=== PATIENT | female | born 1970 | race Caucasian/White ===

== ENCOUNTER → 2017-01-03 | Outpatient (REF) | payer OTHER, MEDICARE ==
[2017-01-03 18:55] LABS: MEAN CORPUSCULAR HEMOGLOBIN 29.6 pg (27.0-33.0); MEAN CORPUSCULAR HGB CONC 33.6 g/dl (32.0-36.5); MEAN CORPUSCULAR VOLUME 88.3 fl (80.0-96.0); RED CELL DISTRIBUTION WIDTH 12.1 % (11.5-14.5); WHITE BLOOD COUNT 8.6 K/mm3 (4.0-10.0)
[2017-01-03 18:56] LABS: ALBUMIN 3.8 GM/DL (3.2-5.2); ALBUMIN/GLOBULIN RATIO 1.23 (1.00-1.93); ALKALINE PHOSPHATASE 206 U/L (45-117); ALT/SGPT 27 U/L (12-78); ANION GAP 8 MEQ/L (8-16); AST/SGOT 13 U/L (15-37); BILIRUBIN,TOTAL 0.5 MG/DL (0.2-1.0); BLOOD UREA NITROGEN 7 MG/DL (7-18); CARBON DIOXIDE LEVEL 25 MEQ/L (21-32); CHLORIDE LEVEL 104 MEQ/L (98-107); CHOLESTEROL LEVEL 211 MG/DL (<200); CREATININE FOR GFR 0.69 MG/DL (0.55-1.02); FREE T4 0.99 NG/DL (0.76-1.46); GLOMERULAR FILTRATION RATE > 60.0 (>58); GLUCOSE, FASTING 300 MG/DL (70-105); POTASSIUM SERUM 4.3 MEQ/L (3.5-5.1); SODIUM LEVEL 137 MEQ/L (136-145); TOTAL PROTEIN 6.9 GM/DL (6.4-8.2); TRIGLYCERIDES LEVEL 229 MG/DL (<150)
== END ==
LOC: M SFHCLERA 10:39
PROVIDERS: ATTEND Family Medicine
DX: E11.42 Type 2 diabetes mellitus with diabetic polyneuropathy (principal); Z79.4 Long term (current) use of insulin; Z98.84 Bariatric surgery status; Z87.891 Personal history of nicotine dependence; Z79.899 Other long term (current) drug therapy

== ENCOUNTER → 2017-04-17 | Outpatient (REF) | payer OTHER, MEDICARE | LOC: M SFHCLERA 14:01 | PROVIDERS: ATTEND Family Medicine | DX: E66.9 Obesity, unspecified (principal); E08.65 Diabetes mellitus due to underlying condition with hyperglycemia ==

== ENCOUNTER → 2017-07-26 | Outpatient (REF) | payer OTHER, MEDICARE ==
[2017-07-26 12:08] LABS: MEAN CORPUSCULAR HEMOGLOBIN 28.3 pg (27.0-33.0); MEAN CORPUSCULAR HGB CONC 33.4 g/dl (32.0-36.5); MEAN CORPUSCULAR VOLUME 84.7 fl (80.0-96.0); RED CELL DISTRIBUTION WIDTH 12.5 % (11.5-14.5); WHITE BLOOD COUNT 10.3 10^3/uL (4.0-10.0)
[2017-07-26 12:16] LABS: INR 0.97
[2017-07-26 12:53] LABS: ALBUMIN 3.9 GM/DL (3.2-5.2); ALBUMIN/GLOBULIN RATIO 1.26 (1.00-1.93); ALKALINE PHOSPHATASE 190 U/L (45-117); ALT/SGPT 26 U/L (12-78); ANION GAP 13 MEQ/L (8-16); AST/SGOT 17 U/L (15-37); BILIRUBIN,TOTAL 0.5 MG/DL (0.2-1.0); BLOOD UREA NITROGEN 7 MG/DL (7-18); CARBON DIOXIDE LEVEL 21 MEQ/L (21-32); CHLORIDE LEVEL 106 MEQ/L (98-107); CREATININE FOR GFR 0.74 MG/DL (0.55-1.02); GLOMERULAR FILTRATION RATE > 60.0 (>58); GLUCOSE, FASTING 259 MG/DL (70-105); POTASSIUM SERUM 4.3 MEQ/L (3.5-5.1); SODIUM LEVEL 140 MEQ/L (136-145)
== END ==
LOC: M SFHCLERA 09:13
PROVIDERS: ATTEND Family Medicine
DX: Z01.818 Encounter for other preprocedural examination (principal)

== ENCOUNTER → 2017-07-26 | Outpatient (CLI) | payer OTHER, MEDICARE ==
--- NOTE | 2017-07-27 01:20 | REP ---
Clinical: Preoperative clearance . Comparison: 10/03/2015 . Technique: PA and lateral. Findings: The mediastinum and cardiac silhouette are normal. Airway is patent and midline. Evidence for anterior cervical fusion. The lung mills are clear and without acute consolidation, effusion, or pneumothorax. The skeletal structures are intact and normal. Impression: 1. No acute cardiopulmonary process. Signed by Braydon Ritchie MD 07/27/2017 01:11 A
== END ==
LOC: M LRY 09:17
PROVIDERS: ATTEND Family Medicine
DX: Z01.818 Encounter for other preprocedural examination (principal)

== ENCOUNTER → 2017-08-25 | Outpatient (REF) | payer OTHER, MEDICARE | LOC: M LAB REF 13:44 | PROVIDERS: ATTEND Advanced Practice Midwife | DX: Z12.4 Encounter for screening for malignant neoplasm of cervix (principal) ==

== ENCOUNTER → 2017-11-07 | Outpatient (CLI) | payer OTHER, MEDICARE | LOC: M RAD 15:06 | DX: M54.5 Low back pain (principal); M51.37 Other intervertebral disc degeneration, lumbosacral region | CPT/HCPCS: 72100 ==

== ENCOUNTER → 2017-12-15 | Outpatient (REF) | payer OTHER, MEDICARE ==
[2017-12-15 20:44] LABS: HEMATOCRIT 45.6 % (36.0-47.0); HEMOGLOBIN 15.1 g/dl (12.0-16.0); MEAN CORPUSCULAR HEMOGLOBIN 27.6 pg (27.0-33.0); MEAN CORPUSCULAR HGB CONC 33.1 g/dl (32.0-36.5); MEAN CORPUSCULAR VOLUME 83.2 fl (80.0-96.0); PLATELET COUNT, AUTOMATED 405 10^3/uL (150-450); RED BLOOD COUNT 5.48 10^6/uL (4.00-5.40); RED CELL DISTRIBUTION WIDTH 12.9 % (11.5-14.5); WHITE BLOOD COUNT 12.4 10^3/uL (4.0-10.0)
[2017-12-15 21:00] LABS: ALBUMIN 4.3 GM/DL (3.2-5.2); ALBUMIN/GLOBULIN RATIO 1.34 (1.00-1.93); ALKALINE PHOSPHATASE 206 U/L (45-117); ALT/SGPT 24 U/L (12-78); ANION GAP 9 MEQ/L (8-16); AST/SGOT 10 U/L (7-37); BILIRUBIN,TOTAL 0.3 MG/DL (0.2-1.0); BLOOD UREA NITROGEN 8 MG/DL (7-18); CALCIUM LEVEL 9.2 MG/DL (8.5-10.1); CARBON DIOXIDE LEVEL 25 MEQ/L (21-32); CHLORIDE LEVEL 105 MEQ/L (98-107); GLOMERULAR FILTRATION RATE > 60.0 (>58); GLUCOSE, FASTING 180 MG/DL (70-100); POTASSIUM SERUM 4.1 MEQ/L (3.5-5.1); SODIUM LEVEL 139 MEQ/L (136-145); TOTAL PROTEIN 7.5 GM/DL (6.4-8.2)
[2017-12-15 21:04] LABS: ESTIMATED AVERAGE GLUCOSE 212 MG/DL (60-110)
== END ==
LOC: M SFHCLERA 16:48
DX: R03.0 Elevated blood-pressure reading, without diagnosis of hypertension (principal)

== ENCOUNTER → 2018-04-17 | Outpatient (REF) | payer OTHER, MEDICARE ==
[2018-04-17 11:42] LABS: BASO # 0.1 10^3/uL (0.0-0.2); BASO % 0.6 % (0.0-1.0); EOS # 0.2 10^3/uL (0.0-0.50); EOS % 1.7 % (0.0-3.0); HEMATOCRIT 41.5 % (36.0-47.0); IMMATURE GRANULOCYTE % 0.4 % (0-3.0); LYMPH # 2.2 10^3/uL (1.5-4.5); LYMPH % 22.2 % (24.0-44.0); MEAN CORPUSCULAR HEMOGLOBIN 28.5 pg (27.0-33.0); MEAN CORPUSCULAR HGB CONC 33.7 g/dl (32.0-36.5); MEAN CORPUSCULAR VOLUME 84.3 fl (80.0-96.0); MONO # 0.4 10^3/uL (0.0-0.8); MONO % 4.1 % (0.0-5.0); NEUTROPHILS # 7.2 10^3/uL (1.8-7.7); PLATELET COUNT, AUTOMATED 323 10^3/uL (150-450); RED BLOOD COUNT 4.92 10^6/uL (4.00-5.40); RED CELL DISTRIBUTION WIDTH 12.7 % (11.5-14.5); WHITE BLOOD COUNT 10.1 10^3/uL (4.0-10.0)
[2018-04-17 12:18] LABS: ALBUMIN/GLOBULIN RATIO 1.38 (1.00-1.93); ALKALINE PHOSPHATASE 151 U/L (45-117); ALT/SGPT 24 U/L (12-78); ANION GAP 12 MEQ/L (8-16); AST/SGOT 12 U/L (7-37); BILIRUBIN,TOTAL 0.5 MG/DL (0.2-1.0); BLOOD UREA NITROGEN 7 MG/DL (7-18); CALCIUM LEVEL 8.6 MG/DL (8.5-10.1); CARBON DIOXIDE LEVEL 19 MEQ/L (21-32); CHLORIDE LEVEL 110 MEQ/L (98-107); CHOLESTEROL LEVEL 135 MG/DL (<200); CREATININE FOR GFR 0.68 MG/DL (0.55-1.30); GLOMERULAR FILTRATION RATE > 60.0 (>58); GLUCOSE, FASTING 156 MG/DL (70-100); HDL CHOLESTEROL 34 MG/DL (>40); LDL CHOLESTEROL 73.4 MG/DL (<100); NON-HDL-C 101 MG/DL; POTASSIUM SERUM 4.2 MEQ/L (3.5-5.1); SODIUM LEVEL 141 MEQ/L (136-145); TOTAL PROTEIN 6.9 GM/DL (6.4-8.2); TRIGLYCERIDES LEVEL 138 MG/DL (<150)
[2018-04-17 12:21] LABS: CREATININE, URINE 50.9 MG/DL; MALB URINE SIEMENS 8.7 MG/L
[2018-04-17 12:46] LABS: ESTIMATED AVERAGE GLUCOSE 192 MG/DL (60-110); HEMOGLOBIN A1c 8.3 %
== END ==
LOC: M SFHCLERA 10:11
DX: B35.1 Tinea unguium (principal); E11.9 Type 2 diabetes mellitus without complications; E78.5 Hyperlipidemia, unspecified

== ENCOUNTER → 2018-05-14 | Outpatient (CLI) | payer OTHER, MEDICARE | LOC: M LRY 13:24 | DX: M79.672 Pain in left foot (principal); M77.32 Calcaneal spur, left foot; M76.62 Achilles tendinitis, left leg | CPT/HCPCS: 73630 ==

== ENCOUNTER → 2018-07-24 | Outpatient (REF) | payer OTHER, MEDICARE | LOC: M SFHCLERA 20:43 | DX: M54.2 Cervicalgia (principal) ==

== ENCOUNTER → 2018-07-24 | Outpatient (REF) | payer OTHER, MEDICARE | LOC: M SFHCLUC 07-25 11:45 | DX: M54.2 Cervicalgia (principal) ==

== ENCOUNTER → 2018-08-12 | Outpatient (CLI) | payer OTHER, MEDICARE ==
[2018-08-12 13:32] LABS: ESTIMATED AVERAGE GLUCOSE 174 MG/DL (60-110); HEMOGLOBIN A1c 7.7 %
== END ==
LOC: M LAB 12:22
DX: E11.65 Type 2 diabetes mellitus with hyperglycemia (principal)

== ENCOUNTER → 2018-08-12 | Outpatient (CLI) | payer OTHER, MEDICARE ==
[2018-08-12 12:49] LABS: BASO # 0.1 10^3/uL (0.0-0.2); BASO % 0.6 % (0.0-1.0); EOS # 0.2 10^3/uL (0.0-0.50); EOS % 1.7 % (0.0-3.0); HEMATOCRIT 41.6 % (36.0-47.0); HEMOGLOBIN 14.1 g/dl (12.0-15.5); IMMATURE GRANULOCYTE % 0.5 % (0-3.0); LYMPH # 3.1 10^3/uL (1.5-4.5); LYMPH % 27.1 % (24.0-44.0); MEAN CORPUSCULAR HEMOGLOBIN 28.4 pg (27.0-33.0); MEAN CORPUSCULAR HGB CONC 33.9 g/dl (32.0-36.5); MEAN CORPUSCULAR VOLUME 83.9 fl (80.0-96.0); MONO # 0.6 10^3/uL (0.0-0.8); MONO % 4.9 % (0.0-5.0); NEUTROPHILS # 7.4 10^3/uL (1.8-7.7); NEUTROPHILS % 65.2 % (36.0-66.0); PLATELET COUNT, AUTOMATED 329 10^3/uL (150-450); RED BLOOD COUNT 4.96 10^6/uL (4.00-5.40); RED CELL DISTRIBUTION WIDTH 12.4 % (11.5-14.5); WHITE BLOOD COUNT 11.3 10^3/uL (4.0-10.0)
[2018-08-12 13:30] LABS: ALBUMIN 3.6 GM/DL (3.2-5.2); ALKALINE PHOSPHATASE 150 U/L (45-117); ALT/SGPT 23 U/L (12-78); ANION GAP 7 MEQ/L (8-16); AST/SGOT 9 U/L (7-37); BILIRUBIN,TOTAL 0.3 MG/DL (0.2-1.0); BLOOD UREA NITROGEN 5 MG/DL (7-18); CALCIUM LEVEL 8.9 MG/DL (8.5-10.1); CARBON DIOXIDE LEVEL 25 MEQ/L (21-32); CHLORIDE LEVEL 106 MEQ/L (98-107); CREATININE FOR GFR 0.64 MG/DL (0.55-1.30); FREE T4 0.96 NG/DL (0.76-1.46); GLOMERULAR FILTRATION RATE > 60.0 (>58); GLUCOSE, FASTING 200 MG/DL (70-100); POTASSIUM SERUM 3.9 MEQ/L (3.5-5.1); SODIUM LEVEL 138 MEQ/L (136-145); THYROID STIMULATING HORMONE 0.912 uIU/ML (0.358-3.740); TOTAL PROTEIN 6.6 GM/DL (6.4-8.2)
[2018-08-14 10:57] LABS: TISSUE TRANSGLUTAMINASE IgA <2 U/mL (0-3)
== END ==
LOC: M LAB 12:19
DX: R19.7 Diarrhea, unspecified (principal)

== ENCOUNTER 2018-08-14 10:23 | Day surgery (SDC) | payer OTHER, MEDICARE ==
[2018-08-14] MEDS: NS 1,000 ML IV (11:15)
[2018-08-14] MEDS ORDERED: PROPOFOL 200 MG/20 ML VIAL As Ordered (11:58)
[2018-08-14] MEDS ORDERED: PROPOFOL 500 MG/50 ML VIAL As Ordered (11:58)
[2018-08-14] MEDS ORDERED: LIDOCAINE 2% INJ 100 MG/5 ML SDV (FOR ANES.) As Ordered (11:58)
== END 2018-08-14 12:30 | disposition home or self-care (01) ==
LOC: M OPP 10:23
DX: K63.5 Polyp of colon (principal); K58.0 Irritable bowel syndrome with diarrhea; I10 Essential (primary) hypertension; E78.70 Disorder of bile acid and cholesterol metabolism, unspecified; E11.9 Type 2 diabetes mellitus without complications; K21.9 Gastro-esophageal reflux disease without esophagitis; G43.909 Migraine, unspecified, not intractable, without status migrainosus; G90.59 Complex regional pain syndrome I of other specified site; Z79.899 Other long term (current) drug therapy; Z79.3 Long term (current) use of hormonal contraceptives; Z87.891 Personal history of nicotine dependence; Z98.0 Intestinal bypass and anastomosis status; Z98.890 Other specified postprocedural states; Z88.8 Allergy status to other drugs, medicaments and biological substances; Z88.0 Allergy status to penicillin; Z91.041 Radiographic dye allergy status; Z88.2 Allergy status to sulfonamides; Z80.0 Family history of malignant neoplasm of digestive organs
CPT/HCPCS: 45385

== ENCOUNTER → 2019-01-18 | Outpatient (REF) | payer OTHER, MEDICARE ==
[~2019-01-18] MED LIST: BIMA01SOL OP; BYDU1INJ SC; CALCTAB41 PO; CYMB60CA3 PO; DEPO150I IM; HYDR-3363 PO; METF10004 PO; MULTCAP PO; NORC1TAB7 PO; OMEP40CA2 PO; PEPT525S PO; SIMV10TA2 PO; SING10TA32 PO; TERB250T12 PO; TOPA50TA8 PO; TOUJ1.2I SC; TRAZ-163 PO; VITATAB22 PO; ZANA2CAP PO; ZYRT10CA PO; xyzal PO
[2019-01-18 12:29] LABS: ALBUMIN 3.8 GM/DL (3.2-5.2); ALT/SGPT 30 U/L (12-78); BILIRUBIN,TOTAL 0.6 MG/DL (0.2-1.0); BLOOD UREA NITROGEN 8 MG/DL (7-18); CALCIUM LEVEL 8.8 MG/DL (8.5-10.1); CARBON DIOXIDE LEVEL 24 MEQ/L (21-32); CHLORIDE LEVEL 106 MEQ/L (98-107); CHOLESTEROL LEVEL 206 MG/DL (<200); CREATININE FOR GFR 0.63 MG/DL (0.55-1.30); GLOMERULAR FILTRATION RATE > 60.0 (>51); GLUCOSE, FASTING 148 MG/DL (70-100); HDL CHOLESTEROL 40 MG/DL (>40); LDL CHOLESTEROL 129 MG/DL (<100); NON-HDL-C 166 MG/DL; POTASSIUM SERUM 3.9 MEQ/L (3.5-5.1); SODIUM LEVEL 138 MEQ/L (136-145); TOTAL PROTEIN 6.5 GM/DL (6.4-8.2); TRIGLYCERIDES LEVEL 187 MG/DL (<150)
[2019-01-18 12:54] LABS: HEMOGLOBIN A1c 8.3 %
[2019-01-18 12:57] LABS: CREATININE, URINE 34.3 MG/DL; MALB URINE SIEMENS 8.2 MG/L; MAU/CREAT RATIO 23.9 MCG/MG (0.0-30.0)
== END ==
LOC: M SFHCLERA 07:32
PROVIDERS: ATTEND Family Medicine
DX: E11.9 Type 2 diabetes mellitus without complications (principal)

== ENCOUNTER → 2019-04-25 | Outpatient (REF) | payer OTHER, MEDICARE ==
[2019-04-25 17:41] LABS: ALBUMIN 3.9 GM/DL (3.2-5.2); ALT/SGPT 24 U/L (12-78); BASO # 0.1 10^3/uL (0.0-0.2); BILIRUBIN,TOTAL 0.4 MG/DL (0.2-1.0); BLOOD UREA NITROGEN 12 MG/DL (7-18); CALCIUM LEVEL 9.3 MG/DL (8.5-10.1); CARBON DIOXIDE LEVEL 29 MEQ/L (21-32); CHLORIDE LEVEL 105 MEQ/L (98-107); CREATININE FOR GFR 0.78 MG/DL (0.55-1.30); EOS # 0.3 10^3/uL (0.0-0.50); EOS % 2.8 % (0.0-3.0); FREE T4 0.88 NG/DL (0.76-1.46); GLOMERULAR FILTRATION RATE > 60.0 (>51); GLUCOSE, FASTING 161 MG/DL (70-100); HEMOGLOBIN 14.3 g/dl (12.0-15.5); LYMPH # 2.6 10^3/uL (1.5-4.5); LYMPH % 27.1 % (24.0-44.0); MEAN CORPUSCULAR HEMOGLOBIN 28.1 pg (27.0-33.0); MEAN CORPUSCULAR HGB CONC 32.5 g/dl (32.0-36.5); MEAN CORPUSCULAR VOLUME 86.4 fl (80.0-96.0); MONO # 0.5 10^3/uL (0.0-0.8); MONO % 5.1 % (0.0-5.0); NEUTROPHILS % 63.7 % (36.0-66.0); PLATELET COUNT, AUTOMATED 355 10^3/uL (150-450); POTASSIUM SERUM 4.9 MEQ/L (3.5-5.1); RED BLOOD COUNT 5.09 10^6/uL (4.00-5.40); SODIUM LEVEL 140 MEQ/L (136-145); THYROID STIMULATING HORMONE 0.972 uIU/ML (0.358-3.740); TOTAL PROTEIN 7.2 GM/DL (6.4-8.2); WHITE BLOOD COUNT 9.4 10^3/uL (4.0-10.0)
[2019-04-25 17:44] LABS: FOLATE 13.9 NG/ML; VITAMIN B12 LEVEL 702 PG/ML
[2019-04-25 18:21] LABS: HEMOGLOBIN A1c 8.1 %
== END ==
LOC: M SFHCLERA 10:10
PROVIDERS: ATTEND Family Medicine
DX: E11.9 Type 2 diabetes mellitus without complications (principal); R53.83 Other fatigue

== ENCOUNTER → 2019-06-14 | Outpatient (CLI) | payer OTHER, MEDICARE ==
--- NOTE | 2019-06-14 12:05 | REP ---
MRI RIGHT FOOT: TECHNIQUE: Multiple sequences are obtained in the axial, coronal, and sagittal planes. There is mild ill-defined bone marrow edema in the anterolateral talus. No other bone marrow edema is seen elsewhere in the osseous structures of the right foot. No ganglion cyst is seen. No abnormal soft tissue signal is seen. Visualized tendons and ligaments are intact. There is no significant tenosynovitis. There is a normal amount of scattered joint fluid. Plantar tendon is intact and there is no evidence of plantar fasciitis. No osteochondral defects are seen, particularly at the talar dome. Ligaments of the ankle appear intact. IMPRESSION: Mild marrow edema in the anterolateral talus could represent a mild bone bruise Alternatively, it could be secondary to some degree of arthritic change at the adjacent talocalcaneal joint. No other significant findings are seen. Electronically Signed by Chaz Glass MD 06/14/2019 01:18 P
== END ==
LOC: M PLARAD 10:02
PROVIDERS: ATTEND Physician Assistant
DX: S90.31XD Contusion of right foot, subsequent encounter (principal)

== ENCOUNTER → 2019-07-30 | Outpatient (REF) | payer OTHER, MEDICARE ==
[~2019-07-30] MED LIST changes: -OMEP40CA2 PO; +OMEP40CA97 PO
[2019-07-30 11:49] LABS: CHOLESTEROL RISK RATIO 3.6 (<5)
[2019-07-30 14:10] LABS: HEMOGLOBIN A1c 7.9 %
[2019-07-30 17:48] LABS: CREATININE, URINE 62.4 MG/DL; MALB URINE SIEMENS 18.3 MG/L; MAU/CREAT RATIO 29.3 MCG/MG (0.0-30.0)
== END ==
LOC: M SFHCLERA 08:56
PROVIDERS: ATTEND Family Medicine
DX: E11.9 Type 2 diabetes mellitus without complications (principal); E78.2 Mixed hyperlipidemia

== ENCOUNTER → 2019-09-08 | Outpatient (REF) | payer OTHER, MEDICARE ==
[~2019-09-08] MED LIST changes: -SIMV10TA2 PO; +SIMV10TA21 PO
== END ==
LOC: M SFHCLERA 12:40
PROVIDERS: ATTEND Physician Assistant
DX: J02.9 Acute pharyngitis, unspecified (principal)

== ENCOUNTER → 2019-10-23 | Outpatient (REF) | payer OTHER, MEDICARE ==
[~2019-10-23] MED LIST changes: -TRAZ-163 PO; +TRAZ-257 PO
[2019-10-23 17:45] LABS: HEMOGLOBIN A1c 7.5 %
== END ==
LOC: M SFHCLERA 13:14
PROVIDERS: ATTEND Family Medicine
DX: E11.9 Type 2 diabetes mellitus without complications (principal)

== ENCOUNTER → 2020-02-07 | Outpatient (REF) | payer OTHER, MEDICARE ==
[2020-02-07 19:30] LABS: HEMOGLOBIN A1c 8.4 %
== END ==
LOC: M SFHCLERA 14:01
PROVIDERS: ATTEND Family Medicine
DX: E11.9 Type 2 diabetes mellitus without complications (principal)

== ENCOUNTER → 2020-03-24 | Outpatient (REF) | payer OTHER, MEDICARE ==
[~2020-03-24] MED LIST changes: +CEFD300CAP PO; +CETI-24 PO; +DOXY-350 PO; +DULO1CAP5 PO; +HYDR-3713 PO; +LEVOTAB10 PO; +LOSA25TA14 PO; +PRIL20TA2 PO; +SIMV20TA22 PO; +VALT1TAB PO; +VENTAER INH
[2020-03-24 13:49] LABS: BLOOD UREA NITROGEN 9 MG/DL (7-18); CALCIUM LEVEL 8.9 MG/DL (8.5-10.1); CARBON DIOXIDE LEVEL 25 MEQ/L (21-32); CHLORIDE LEVEL 106 MEQ/L (98-107); CREATININE FOR GFR 0.82 MG/DL (0.55-1.30); GLOMERULAR FILTRATION RATE > 60.0 (>51); GLUCOSE, FASTING 183 MG/DL (70-100); POTASSIUM SERUM 4.2 MEQ/L (3.5-5.1); SODIUM LEVEL 140 MEQ/L (136-145)
== END ==
LOC: M SFHCLERA 10:47
PROVIDERS: ATTEND Family Medicine
DX: I10 Essential (primary) hypertension (principal)

== ENCOUNTER → 2020-10-16 | Outpatient (CLI) | payer OTHER, MEDICARE ==
[~2020-10-16] MED LIST changes: -CEFD300CAP PO; -CETI-24 PO; -DOXY-350 PO; -DULO1CAP5 PO; -HYDR-3713 PO; -LEVOTAB10 PO; -LOSA25TA14 PO; -PRIL20TA2 PO; -SIMV20TA22 PO; -VALT1TAB PO; -VENTAER INH
--- NOTE | 2020-10-16 14:54 | REP ---
INDICATION: CHEST CONGESTION. COMPARISON: Comparison chest x-ray July 26, 2017. TECHNIQUE: Two views.. FINDINGS: The lungs are well inflated and free of infiltrate. The pleural angles are sharp. The heart size is normal. Pulmonary vasculature is not increased. No significant bony abnormality is seen. A dorsal column stimulator lead is noted in the lower thoracic spine. The patient is status post lower cervical spine fusion plating. IMPRESSION: No active disease. Dorsal column stimulator in the lower thoracic spine and ventral discectomy and fusion plating in the lower cervical spine. Otherwise negative.. <Electronically signed by Sky Moe > 10/16/20 [id number]
== END ==
LOC: M WUC 13:56
PROVIDERS: ATTEND Nurse Practitioner Family
DX: R09.89 Other specified symptoms and signs involving the circulatory and respiratory systems (principal); Z96.89 Presence of other specified functional implants

== ENCOUNTER 2020-10-29 14:29 | Emergency (ER) | payer OTHER, MEDICARE ==
[~2020-10-29] VITALS: Ht 162.6 cm; Wt 105.0 kg
--- OUTSIDE RECORDS SUMMARY | 2020-10-29 14:36 | CCD ---
Author Author [facility] Organization [facility] ems Address Unknown Phone Unavailable Care Team Providers Care Animal Care Provider Name Role Phone Katherine Yost Unavailable PROBLEMS Type Condition ICD9-CM Code [id number] Code Onset Dates Condition S tatus SNOMED Code Notes Problem Insomnia, unspecified type G47.00 Active 16489 2000 Problem Allergic rhinitis, unspecified seasonality, unspecifie d trigger J30.9 Active 16173797 Problem Type 2 diabetes mellitus without complications E11 .9 Active 137011984 Problem Morbid obesity E66.01 Active 265842997 Problem [facility] current use of insulin Z79.4 Active 642327511 Problem Post-traumatic stress disorder, unspecified F43.10 Active 89832482 Problem Mixed hyperlipidemia E78.2 Active 759898120 Problem Gastroesophageal reflux disease, esophagitis pre sence not specified K21.9 Active 921932547 Problem Reflex sympathetic dystrophy G90.50 Active 128 142535 Problem Hypertension, unspecified type I10 Active 3 8922709 Problem Perimenopause N95.1 Active 947482347625699 ALLERGIES Allergen (clinical drug ingredient) Drug/Non Drug Allergy do cumented on EMR Reaction Allergy Type Onset Date Status Lidocaine & Adhesive Sheet rapid heart rate, ringing in ea r Drug Allergy Active Inderal Hives Drug Allergy Active Sulfa (for allergy use only) Hives Drug Allergy Active Amoxicillin Rash Drug Allergy Active Riboflavin Mouth sores Drug Allergy Active MRI Dye Anaphylaxis Non Drug Allergy Active gabapentin Neurontin(ND Code:[address]-45) Orbital pain, black dots Drug Allergy Active Magnesium(ND Code:[address]-82) mouth sores Drug Allergy Active amitriptyline Amitriptyline HCl(NDC Code:[address]-14) Mouth sores Drug Allergy Active pregabalin Lyrica([facility] Code:[address]-79) Orbital pain, black dot s Drug Allergy Active valproate Depakote([facility] Code:[address]-40) REYES Drug Allergy Active IV Dye Anaphylaxis Drug Allergy Active Zinc([facility] Code:05204-91909) Hives Drug Allergy Active ENCOUNTERS from 1970 to 2020-10-26 Encounter Location Date Provider Diagnosis [facility] [address] [place] [address] Oct, 2020 Katherine Yost Bronchitis J40 IMMUNIZATIONS Vaccine Route Administration Date Status Influenza (18 yrs & older) Flublok IM Intramuscular Aug 07, 2019 Administered Influenza (18 yrs & older) Flublok Unknown Jul 02, 2020 Administered Pneumococcal Adult 0.5mL (Pneumovax 23) Unknown Aug 14, 2017 Administered Influenza (6mo & up) Fluzone IM Intramuscular Aug 20, 2018 Ad ministered Influenza (6mo & up) Fluzone IM Intramuscular Aug 09, 2017 Ad ministered Influenza (6mo & up) Fluzone Unknown Jul 29, 2015 Adm inistered Influenza (6mo & up) Fluzone Unknown Oct 12, 2014 Ref used SOCIAL HISTORY Tobacco Use: Social History Observation Description Date Details (start date - stop date) Former Smoker Sex Assigned At : Social History Observation Description Sex Assigned At Unknown Language: Question Answer Notes Languages spoken: Algerian Confucianism: Question Answer Notes Confucianism 33 None Sexual Hx: Question Answer Notes Had sex in the last 12 months (vaginal, oral, or anal)? Yes Have you ever had an STD? No with Men only Use protection? No Alcohol Screening: Question Answer Notes Did you have a drink containing alcohol in the past year? Ye s Points 1 Interpretation Negative How often did you have six or more drinks on one occas ion in the past year? Never (0 points) How many drinks did you have on a typica l day when you were drinking in the past year? 1 or 2 (0 points) How often did you have a drink containing alcohol in t he past year? Monthly or less (1 point) Tobacco Use: Question Answer Notes Are you a: former smoker 1 PPD for 15 years How long has it been since you last smoked? > 10 years REASON FOR REFERRAL No Information VITAL SIGNS No information MEDICATIONS Medication SIG (Take, Route, Frequency, Duration) Notes Start Da te End Date Status Toujeo SoloStar 300 UNIT/ML 30 units Subcutaneous Daily for 30 days Active Omeprazole 40 MG TAKE 1 CAPSULE BY MOUTH ONCE DAILY for 30 Active Bydureon 2 MG 1 injection Subcutaneous once a week for 30 days Active Zyrtec Allergy 10 MG 1 tablet Orally Once a day Active Test Strips - as directed intravenously bid for 90 days Oct, Active Cymbalta 60 MG 1 capsule Orally Once a day Active Zanaflex 2 MG 1 tablet Orally Once a day Active HydrOXYzine Pamoate 25 mg 1 capsule Orally 1 capsule i n the am, 4 at night, 1 cap as needed for 30 days Active Lyndora 5-325 MG 1 tablet as needed Orally every 6 hrs Active ProAir HFA 108 (90 Base) MCG/ACT 1 puff as needed Inha lation every 4 hrs for 10 day(s) Oct, Active Xyzal 5 MG 1 tablet in the evening Orally Once a day Active Singulair 10 MG 1 tablet in the evening Orally Once a day for 30 days Active TraZODone HCl 100 MG 1-2 tablets at bedtime Orally QHS for 90 day(s) Active Flonase 50 MCG/ACT 1 spray in each nostril Nasally Once a day fo r 30 day(s) Aug, Active Losartan Potassium 25 MG 1 tablet Orally Once a day Active Topamax 50 MG 1 tablet Orally Once a day Active Zocor 20 MG 1 tab Orally Once a day Active Metformin HCl 1000 MG 1 tablet with meals Orally Twice a day Active PROCEDURES No Information RESULTS No Results REASON FOR VISIT f/u bronchitis MEDICAL (GENERAL) HISTORY Type Description Date Medical History RSD Medical History Type 2 DM Medical History glaucoma Medical History Abnormal mammogram Medical History obesity Medical History HLD Medical History HTN Surgical History Gastric Bypass May 2010 Surgical History c-spine fusion 2011 Surgical History CTS release and ulnar nerve transpositio n left 2012 Surgical History CTS release right 2014 Surgical History ulnar nerve transposition right 2017 Surgical History laposcopic 1990 Surgical History excision of kidney stone, tonsillectomy 1990 Surgical History club foot repair 1968+1970 Surgical History left dorsal compartment release 1994 Surgical History dorsal stimulator 08/28/2017 Hospitalization History [facility]co[facility]ondritis 2011 Hospitalization History [facility]ondritis 09/18/18 Goals Section No Information Health Concerns No Information MEDICAL EQUIPMENT No Information MENTAL STATUS No Information FUNCTIONAL STATUS No Information ASSESSMENTS Encounter Date Diagnosis Assessment Notes Treatment Notes Treatm ent Clinical Notes Oct, Bronchitis (ICD-10 - J40) Bronchitis with improvement on Proair. Continue proair as directed and prn. F/u prn. ER for new or worsening sxs. Patient educated on diagnosis, medications, treatments, and expected outcomes. Patient educated on risks, SE/AE, benefits, alternatives of regimen. Discussed emergent signs and symptoms and to seek emergency medical attention if they occur. Patient voiced understanding and had all questions answered. PLAN OF TREATMENT Treatment Notes Assessment Notes Clinical Notes Bronchitis Bronchitis with improvement on Proair. Continue proair as directed and prn. F/u prn. ER for new or worsening sxs. Patient educated on diagnosis, medications, treatments, and expected outcomes. Patient educated on risks, SE/AE, benefits, alternatives of regimen. Discussed emergent signs and symptoms and to seek emergency medical attention if they occur. Patient voiced understanding and had all questions answered. Next Appt Details prn Reason: Provider Name:Eliana Godfrey, 2020-10-29 0 1:15:00 PM, [address] [place], [address], Provider Name:Eunice Galeano 2020-11-12 01:00:00 PM, [address] [address], [place], [address] Provider Name:Eunice aGleano 2020-11-19 01:00:00 PM, [address] [address], [place], [address] Provider Name:Eunice Galeano 2020-12-03 01:00:00 PM, [address] [address], [place], [address] Insurance Providers Payer Name Payer Address Payer Phone Insured Name Patient Relati onship to Insured Coverage Start Date Coverage End Date [facility] [address] [address] [facility] [id number] JESSI CLOUD MEDICARE Part A and B [address] [facility] [phone] JESSI CLOUD self
--- OUTSIDE RECORDS SUMMARY | 2020-10-29 14:37 | CCD ---
Continuity of Care Document (CCD) Created on: 10/19/2020 Jena Cloud External Reference #: [id number] : [id number] Sex: Female Author Author Jena LORA Organization Unknown Address [address] [place] [address] [place] [address] Phone [phone] Care Team Providers Care Entry Level Manager Name Role Phone Clif Tapia DO AUTM [phone] Sundeep [employer] AUTM [phone] Problems Active Problems Provider Date Type 2 diabetes mellitus Hiren Dhillon PNghia Onset: 0 12/05/2009 Social History Type Date Description Comments Sex Unknown ETOH Use Occasionally consumes alcohol Tobacco Use Start: Unknown No Smoking Status Reviewed: 10/19/20 No Allergies, Adverse Reactions, Alerts Active Allergies Reaction Severity Comments Date Sulfa 12/05/2009 Lyrica 12/05/2009 Neurontin 12/05/2009 Amitriptyline 12/05/2009 IV Contrast 12/05/2009 Medications Active Medications SIG Qnty Indications Ordering Provide r Date Trujeo Christiano Gagnon JR. 10/19/2020 [place] 325 mg Christiano Gagnon JR. 10/19/2020 Prednisone 20mg Tablets take one tablet three times a day for three days, then take one tablet twice a day for three days, then take one tab daily for three days. 18tabs J04.10 Adam Lynch JR., M.D. 10/19/2020 Cefdinir 300mg Capsules 1 tab by mouth twice a day x10 days 20caps J04.10 Maxi Gagnon JR. 10/19/[address] Knight 1. 5 po od Adam Lynch JR., M.D. 12/05/2009 Bydureon Unknown Simvastatin Unknown Metformin HCL Unknown Topamax 50mg Tablets 1 po bid 60tabs Unknown Vitamin C 500mg Chewtabs bid Unknown Vitamin B 12 Lozenges qd Unknown Calcium 600 600mg Tablets bid Unknown Metoprolol Tartrate 50mg Tablets bid Unknown Mvi bid Unknown Vitamin D Unknown Narco prn Unknown Xyzal 5mg Tablets 1 po qd Unknown Zanaflex 4mg Capsules od Unknown Medications Administered in Office Medication SIG Qnty Indications Ordering Provider Date Phenergan/Promethazine Hci Injection To 50 MG Injection Cuba Magana 04/25/20 08 Immunizations Description No Information Available Vital Signs Date Vital Result Comment 10/19/2020 5:39pm BP Systolic 144 mmHg BP Diastolic 90 mmHg Heart Rate 83 /min Respiratory Rate 14 /min O2 % BldC Oximetry 98 % Body Temperature 98.8 F Weight 232.00 lb Height 64 inches 5'4" BMI (Body Mass Index) 39.8 kg/m2 Pain Level 6 11/17/2012 5:19pm BP Systolic 122 mmHg BP Diastolic 80 mmHg Heart Rate 88 /min Respiratory Rate 16 /min O2 % BldC Oximetry 96 % Body Temperature 98.7 F Weight 242.00 lb Height 64 inches 5'4" BMI (Body Mass Index) 41.5 kg/m2 Pain Level 8 Results Description No Information Available Procedures Description No Information Available Medical Devices Description No Information Available Encounters Type Date Location Provider Dx Diagnosis Office Visit 10/19/2020 5:15p Main Office CHUY Leonard J04 .10 Acute tracheitis without obstruction J06.9 Acute upper respiratory infe ction, unspecified Z20.828 Contact w and exposure to ot h viral communicable diseases Assessments Date Code Description Provider 10/19/2020 J04.10 Acute tracheitis without obstruc tion CHUY Leonard 10/19/2020 J06.9 Acute upper respiratory infectio n, unspecified CHUY Leonard 10/19/2020 Z20.828 Contact with and (centeno spected) exposure to other viral communicable diseases CHUY Leonard Plan of Treatment No Information Available Functional Status Description No Information Available Mental Status Description No Information Available Referrals Description No Information Available
--- OUTSIDE RECORDS SUMMARY | 2020-10-29 14:37 | CCD ---
Author Author [facility] Organization [facility] Address Unknown Phone Unavailable Care Team Providers Care Grain Mixer Name Role Phone Eunice Galeano Unavailable PROBLEMS Type Condition ICD9-CM Code TQN80-AU Code Onset Dates Condition S tatus SNOMED Code Notes Problem Insomnia, unspecified type G47.00 Active 27111 2000 Problem Allergic rhinitis, unspecified seasonality, unspecifie d trigger J30.9 Active 07502216 Problem Type 2 diabetes mellitus without complications E11 .9 Active 381202523 Problem Morbid obesity E66.01 Active 077262183 Problem assisted current use of insulin Z79.4 Active 017566742 Problem Post-traumatic stress disorder, unspecified F43.10 Active 70105751 Problem Mixed hyperlipidemia E78.2 Active 483007252 Problem Gastroesophageal reflux disease, esophagitis pre sence not specified K21.9 Active 705151318 Problem Reflex sympathetic dystrophy G90.50 Active 128 467597 Problem Hypertension, unspecified type I10 Active 3 3334048 Problem Perimenopause N95.1 Active 161661309230071 ALLERGIES Allergen (clinical drug ingredient) Drug/Non Drug [...] Dye Anaphylaxis Non Drug Allergy Active gabapentin Neurontin(NDC Code:[address]-48) Orbital pain, black dots Drug Allergy Active Magnesium(NDC Code:[address]-15) mouth sores Drug Allergy Active amitriptyline Amitriptyline HCl(NDC Code:[address]-49) Mouth sores Drug Allergy Active pregabalin Lyrica([facility] Code:[address]-04) Orbital pain, black dot s Drug Allergy Active valproate Depakote([facility] Code:[address]-03) REYES Drug Allergy Active IV Dye Anaphylaxis Drug Allergy Active Zinc([facility] Code:62594-[address]169) Hives Drug Allergy Active ENCOUNTERS from 1970 to 2020-09-18 Encounter Location Date Provider Diagnosis [facility] [address] [facility] [address] [place] [address] Sep, Eunice Froylan Post-traumatic stress disord er, unspecified F43.10 IMMUNIZATIONS Vaccine Route Administration Date Status Influenza (18 yrs & older) Flublok Unknown Jul 02, 2020 Administered Influenza (18 yrs & older) Flublok IM Intramuscular Aug 07, 2019 Administered Pneumococcal Adult 0.5mL (Pneumovax 23) Unknown [...] Unknown Language: Question Answer Notes Languages spoken: Faroese Amish: Question Answer Notes Amish 33 None Sexual Hx: Question Answer Notes [...] Notes Start Da te End Date Status TraZODone HCl 100 MG 1-2 tablets at bedtime Orally QHS for 90 day(s) Active Xyzal 5 MG 1 tablet in the evening Orally Once a day Active Vnwgrsxy-Bzedbjwqq-GA 3.5-40834-9 3 drops in left ear Otic Three times a day for 7 day(s) Apr, Active Test Strips - as directed intravenously bid for 90 days Oct, Active Zyrtec Allergy 10 MG 1 tablet Orally Once a day Active Cymbalta 60 MG 1 capsule Orally Once a day Active Whiteclay 5-325 MG 1 tablet as needed Orally every 6 hrs Active HydrOXYzine Pamoate 25 mg 1 capsule Orally 1 capsule i n the am, 4 at night, 1 cap as needed for 30 Active Zocor 20 MG 1 tab Orally Once a day Active Omeprazole 40 MG TAKE 1 CAPSULE BY MOUTH ONCE DAILY for 30 Active Bydureon 2 MG 1 injection Subcutaneous once a week Active Metformin HCl 1000 MG 1 tablet with meals Orally Twice a day Active Singulair 10 MG 1 tablet in the evening Orally Once a day for 30 days Active Toujeo SoloStar 300 UNIT/ML 30 units Subcutaneous Daily Active Flonase 50 MCG/ACT 1 spray in each nostril Nasally Once a day fo r 30 day(s) Aug, Active Zanaflex 2 MG 1 tablet Orally Once a day Active Topamax 50 MG 1 tablet Orally Once a day Active Losartan Potassium 25 MG 1 tablet Orally Once a day Active PROCEDURES No Information RESULTS No Results REASON FOR VISIT CAR MEDICAL (GENERAL) HISTORY Type Description Date Medical [...] Notes Treatment Notes Treatm ent Clinical Notes Sep, Post-traumatic stress disorder, unspecified (ICD -10 - F43.10) Jessi attended scheduled follow up appointment, accompanied by her . Jessi presents for treatment with history of PTSD and current depressive and anxious symptomology. Worked to establish rapport with Jessi and . Discussed their relationship stressors and goals. Jessi is scheduled for follow up appointment with this fiction and nonfiction prose writer 09/29/2020 at 1pm, individual appointment. Jessi is aware to call for earlier appointment if needed and to use ER for mental health emergencies. Jessi reports her psychiatric appointment was rescheduled due to doctor being sick. To rule out Bipolar II and Borderline Personality Disorder. PLAN OF TREATMENT Medication Medication Name Sig Start Date Stop Date Toujeo SoloStar 300 UNIT/ML 30 units Subcutaneous Daily Metformin HCl 1000 MG 1 tablet with meals Orally Twice a day Losartan Potassium 25 MG 1 tablet Orally Once a day Bydureon 2 MG 1 injection Subcutaneous once a week Treatment Notes Assessment Notes Clinical Notes Post-traumatic stress disorder, unspecified Jessi attended scheduled follow up appointment, accompanied by her . Jessi presents for treatment with history of PTSD and current depressive and anxious symptomology. Worked to establish rapport with Jessi and . Discussed their relationship stressors and goals.Jessi is scheduled for follow up appointment with this fiction and nonfiction prose writer 09/29/2020 at 1pm, individual appointment. Jessi is aware to call for earlier appointment if needed and to use ER for mental health emergencies.Jessi reports her psychiatric appointment was rescheduled due to doctor being sick.To rule out Bipolar II and Borderline Personality Disorder. Next Appt Details Provider Name:Eunice Galeano, 2020-09-29 01:00:00 PM, [address] [address], [place], [address] Provider Name:Eliana Godfrey, 2020-10-29 0 1:15:00 PM, [address] [place], [address], Insurance Providers Payer Name Payer Address Payer Phone Insured Name Patient Relati onship to Insured Coverage Start Date Coverage End Date MEDICARE Part A and B [address] [facility] [id number] [phone] JESSI CLOUD self [facility] [address] [address] [facility] [phone] JESSI CLOUD
--- OUTSIDE RECORDS SUMMARY | 2020-10-29 14:37 | CCD ---
Author Author [facility] Syst ems Organization [facility] ems Address Unknown Phone Unavailable Care Team Providers Care Estimator Paperboard Boxes Name Role Phone Katherine Yost Unavailable PROBLEMS Type Condition ICD9-CM Code [id number] Code Onset Dates Condition S tatus SNOMED Code Notes Problem Insomnia, unspecified type G47.00 Active 97374 2000 Problem Allergic rhinitis, unspecified seasonality, unspecifie d trigger J30.9 Active 51110909 Problem Type 2 diabetes mellitus without complications E11 .9 Active 986915312 Problem Morbid obesity E66.01 Active 434023306 Problem [facility] current use of insulin Z79.4 Active 979493795 Problem Post-traumatic stress disorder, unspecified F43.10 Active 43288054 Problem Mixed hyperlipidemia E78.2 Active 681834771 Problem Gastroesophageal reflux disease, esophagitis pre sence not specified K21.9 Active 903613257 Problem Reflex sympathetic dystrophy G90.50 Active 128 295077 Problem Hypertension, unspecified type I10 Active 3 1075502 Problem Perimenopause N95.1 Active 543675860183177 ALLERGIES Allergen (clinical drug ingredient) Drug/Non Drug [...] Anaphylaxis Non Drug Allergy Active gabapentin Neurontin(ND Code:[address]-12) Orbital pain, black dots Drug Allergy Active Magnesium(ND Code:[address]-38) mouth sores Drug Allergy Active amitriptyline Amitriptyline HCl(NDC Code:[address]-96) Mouth sores Drug Allergy Active pregabalin Lyrica([facility] Code:[address]-56) Orbital pain, black dot s Drug Allergy Active valproate Depakote([facility] Code:[address]-54) REYES Drug Allergy Active IV Dye Anaphylaxis Drug Allergy Active Zinc([facility] Code:64565-95484) Hives Drug Allergy Active ENCOUNTERS from 1968 to 2020-10-21 Encounter Location Date Provider Diagnosis [facility] [address] [place] [address] Oct, Katherine Yost Bronchitis J40 IMMUNIZATIONS Vaccine Route [...] Unknown Language: Question Answer Notes Languages spoken: Ghanaian Restorationism: Question Answer Notes Restorationism 33 None Sexual Hx: Question Answer Notes [...] REASON FOR REFERRAL No Information VITAL SIGNS Weight 233 lbs 11 Kumar, 2021 Height 64 in Oct, BMI 39.99 kg/m2 Oct, Heart Rate 85 /min Oct, Respiratory Rate 18 /min Oct, Temperature 97.4 degrees Fahrenheit Oct, Oximetry 98% Oct, Blood pressure systolic 152 mm Hg Oct, Blood pressure diastolic 102 mm Hg Oct, MEDICATIONS Medication SIG (Take, Route, Frequency, Duration) Notes Start Da te End Date Status Touchai SoloStar 300 UNIT/ML 30 units Subcutaneous Daily [...] cap as needed for 30 days Active [place] 5-325 MG 1 tablet as needed Orally [...] tonsillectomy 1990 Surgical History club foot repair 1969+1970 Surgical History left dorsal compartment release 1994 Surgical History dorsal stimulator 08/28/2017 Hospitalization History [facility] 2011 Hospitalization History [facility] 09/18/18 Goals Section No Information Health Concerns No Information MEDICAL EQUIPMENT No Information MENTAL STATUS No Information FUNCTIONAL STATUS No Information ASSESSMENTS Encounter Date Diagnosis Assessment Notes Treatment Notes Treatm ent Clinical Notes Oct, Bronchitis (ICD-10 - J40) Ongoing cough, chest congestion with failed tx with prednisone, Tessalon Perles, zpack. Currently on inhaler w/some relief. CXR and COVID negative. Patient speaking in full sentences w/o getting winded. Walking pulse ox >95% RA. Recommended continuing albuterol inhaler prn. telemed visit in 2-3 days with me. ER for new or worsening sxs. Patient educated on diagnosis, medications, treatments, and expected outcomes. Patient educated on risks, SE/AE, benefits, alternatives of regimen. Discussed emergent signs and symptoms and to seek emergency medical attention if they occur. Patient voiced understanding and had all questions answered. PLAN OF TREATMENT Treatment Notes Assessment Notes Clinical Notes Bronchitis Ongoing cough, chest congest ion with failed tx with prednisone, Tessalon Perles, zpack. Currently on inhaler w/some relief. CXR and COVID negative. Patient speaking in full sentences w/o getting winded. Walking pulse ox >95% RA. Recommended continuing albuterol inhaler prn. telemed visit in 2-3 days with me. ER for new or worsening sxs. Patient educated on diagnosis, medications, treatments, and expected outcomes. Patient educated on risks, SE/AE, benefits, alternatives of regimen. Discussed emergent signs and symptoms and to seek emergency medical attention if they occur. Patient voiced understanding and had all questions answered. Next Appt Details 2 - 3 Days, prn Reason: Provider Name:Eunice Galeano, 2020-10-22 01:00:00 PM, [address], [address] [address], [place], [address] Provider Name:Eliana Godfrey, 2020-10-29 0 1:15:00 PM, [address] [place], [address], Insurance Providers Payer Name Payer Address Payer Phone Insured Name Patient Relati onship to Insured Coverage Start Date Coverage End Date [facility] [address] [address] [facility] [phone] JESSI CLOUD MEDICARE Part A and B [address] [facility] [address] JESSI CLOUD self
--- OUTSIDE RECORDS SUMMARY | 2020-10-29 14:37 | CCD ---
Author Author [facility] Syst ems Organization [facility] ems Address Unknown Phone Unavailable Care Team Providers Care Emergency Room Physician Assistant Name Role Phone Katherine Yost Unavailable PROBLEMS Type Condition ICD9-CM Code WCQ50-IY Code Onset Dates Condition S tatus SNOMED Code Notes Problem Insomnia, unspecified type G47.00 Active 26652 2000 Problem Allergic rhinitis, unspecified seasonality, unspecifie d trigger J30.9 Active 52382289 Problem Type 2 diabetes mellitus without complications E11 .9 Active 134017000 Problem Morbid obesity E66.01 Active 179830927 Problem [facility] current use of insulin Z79.4 Active 755523849 Problem Post-traumatic stress disorder, unspecified F43.10 Active 75857650 Problem Mixed hyperlipidemia E78.2 Active 084229075 Problem Gastroesophageal reflux disease, esophagitis pre sence not specified K21.9 Active 400133625 Problem Reflex sympathetic dystrophy G90.50 Active 128 591091 Problem Hypertension, unspecified type I10 Active 3 5266028 Problem Perimenopause N95.1 Active 507189257471779 ALLERGIES Allergen (clinical drug ingredient) Drug/Non Drug [...] Anaphylaxis Non Drug Allergy Active gabapentin Neurontin(ND Code:[address]-12) Orbital pain, black dots Drug Allergy Active Magnesium(ND Code:[address]-30) mouth sores Drug Allergy Active amitriptyline Amitriptyline HCl(NDC Code:[address]-05) Mouth sores Drug Allergy Active pregabalin Lyrica([facility] Code:[address]-11) Orbital pain, black dot s Drug Allergy Active valproate Depakote([facility] Code:[address]-53) REYES Drug Allergy Active IV Dye Anaphylaxis Drug Allergy Active Zinc([facility] Code:80845-47928) Hives Drug Allergy Active ENCOUNTERS from 1968 to 2020-10-17 Encounter Location Date Provider Diagnosis [facility] [address] [place] [address] Oct, Katherine Priyank IMMUNIZATIONS Vaccine Route Administration Date Status Influenza [...] Unknown Language: Question Answer Notes Languages spoken: Khmer Shinto: Question Answer Notes Shinto 33 None Sexual Hx: Question Answer Notes [...] Notes Start Da te End Date Status ProAir HFA 108 (90 Base) MCG/ACT 1 puff as needed Inha lation every 4 hrs for 10 day(s) Oct, Active Topamax 50 MG 1 tablet Orally Once a day Active Metformin HCl 1000 MG 1 tablet with meals Orally Twice a day Active Zviirrwu-Iypywtotu-GL 3.5-89775-3 3 drops in left ear Otic Three times a day for 7 day(s) Apr, Active Test Strips - as directed intravenously bid for 90 days Oct, Active Zanaflex 2 MG 1 tablet Orally Once a day Active Omeprazole 40 MG TAKE 1 CAPSULE BY MOUTH ONCE DAILY for 30 Active Cymbalta 60 MG 1 capsule Orally Once a day Active Toujeo SoloStar 300 UNIT/ML 30 units Subcutaneous Daily for 30 days Active Bydureon 2 MG 1 injection Subcutaneous once a week for 30 days Active Zocor 20 MG 1 tab Orally Once a day Active Zyrtec Allergy 10 MG 1 tablet Orally Once a day Active Losartan Potassium 25 MG 1 tablet Orally Once a day Active HydrOXYzine Pamoate 25 mg 1 capsule Orally 1 capsule i n the am, 4 at night, 1 cap as needed for 30 days Active Xyzal 5 MG 1 tablet in the evening Orally Once a day Active Flonase 50 MCG/ACT 1 spray in each nostril Nasally Once a day fo r 30 day(s) Aug, Active Singulair 10 MG 1 tablet in the evening Orally Once a day for 30 days Active TraZODone HCl 100 MG 1-2 tablets at bedtime Orally QHS for 90 day(s) Active [place] 5-325 MG 1 tablet as needed Orally every 6 hrs Active PROCEDURES No Information RESULTS No Results REASON FOR VISIT test results MEDICAL (GENERAL) HISTORY Type Description Date Medical [...] No Information FUNCTIONAL STATUS No Information ASSESSMENTS No Information PLAN OF TREATMENT Medication Medication Name Sig Start Date Stop Date ProAir HFA 108 (90 Base) MCG/ACT 1 puff as needed Inha lation every 4 hrs for 10 day(s) Oct, Next Appt Details Provider Name:Katherine Yost, 10-19 03:30:00 PM, [address] [place], [address], Provider Name:Eunice Galeano, 2020-10-22 01:00:00 PM, [address], [address] [address], [place], [address] Provider Name:Elianamanuel Godfrey, 2020-10-29 0 1:15:00 PM, [address] [place], [address], Insurance Providers Payer Name Payer Address Payer Phone Insured Name Patient Relati onship to Insured Coverage Start Date Coverage End Date MEDICARE Part A and B [address] [facility] [address] [phone] JESSI CLOUD self [facility] [address] [address] [facility] [address] JESSI CLOUD
--- OUTSIDE RECORDS SUMMARY | 2020-10-29 14:37 | CCD ---
Author Author [facility] em[facility] Organization [facility] Address Unknown Phone Unavailable Care Team Providers Care Adjunct Psychology Professor Name Role Phone Eunice Galeano Unavailable PROBLEMS Type Condition ICD9-CM Code DTD58-QP Code Onset Dates Condition S tatus SNOMED Code Notes Problem Insomnia, unspecified type G47.00 Active 54487 2000 Problem Allergic rhinitis, unspecified seasonality, unspecifie d trigger J30.9 Active 56241121 Problem Type 2 diabetes mellitus without complications E11 .9 Active 950505972 Problem Morbid obesity E66.01 Active 833844545 Problem [facility] current use of insulin Z79.4 Active 828853256 Problem Post-traumatic stress disorder, unspecified F43.10 Active 11048201 Problem Mixed hyperlipidemia E78.2 Active 458972981 Problem Gastroesophageal reflux disease, esophagitis pre sence not specified K21.9 Active 948443401 Problem Reflex sympathetic dystrophy G90.50 Active 128 977041 Problem Hypertension, unspecified type I10 Active 3 8725163 Problem Perimenopause N95.1 Active 909374069532493 ALLERGIES Allergen (clinical drug ingredient) Drug/Non Drug [...] Anaphylaxis Non Drug Allergy Active gabapentin Neurontin([facility]C Code:[address]-27) Orbital pain, black dots Drug Allergy Active Magnesium([facility] Code:[address]-96) mouth sores Drug Allergy Active amitriptyline Amitriptyline HCl([facility]C Code:[address]-83) Mouth sores Drug Allergy Active pregabalin Lyrica([facility] Code:[address]-68) Orbital pain, black dot s Drug Allergy Active valproate Depakote([facility] Code:[address]-61) REYES Drug Allergy Active IV Dye Anaphylaxis Drug Allergy Active Zinc([facility] Code:16598-14924) Hives Drug Allergy Active ENCOUNTERS from 1968 to 2020-09-30 Encounter Location Date Provider Diagnosis [facility] [address] [address] Sep, Eunice Froylan Post-traumatic stress disord er, [...] Unknown Language: Question Answer Notes Languages spoken: Greek Church: Question Answer Notes Church 33 None Sexual Hx: Question Answer Notes [...] the evening Orally Once a day Active Nuzktquu-Owklbqpli-OO 3.5-47533-3 3 drops in left ear Otic Three times a day for 7 day(s) Apr, Active Test Strips - as directed intravenously bid for 90 days Oct, Active Zyrtec Allergy 10 MG 1 tablet Orally Once a day Active Cymbalta 60 MG 1 capsule Orally Once a day Active [place] 5-325 MG 1 tablet as needed Orally [...] Information RESULTS No Results REASON FOR VISIT No Information MEDICAL (GENERAL) HISTORY Type Description Date Medical [...] - F43.10) Jessi attended scheduled follow up appointment. Jessi presents for treatment with history of PTSD and current depressive and anxious symptomology. Reviewed presenting symptoms and concerns, discussed efforts made to manage symptoms and negative thoughts. Discussed changes in relationship with . Jessi is scheduled for follow up appointment with this keno writer / runner 10/15/2020 at 1pm, individual appointment. Jessi is aware to call for earlier appointment if needed and to use ER for mental health emergencies. Jessi is scheduled for psychiatry appointment 10/20/2020. To rule out Bipolar II and Borderline [...] disorder, unspecified Jessi attended scheduled follow up appointment. Jessi presents for treatment with history of PTSD and current depressive and anxious symptomology. Reviewed presenting symptoms and concerns, discussed efforts made to manage symptoms and negative thoughts. Discussed changes in relationship with . Jessi is scheduled for follow up appointment with this keno writer / runner 10/15/2020 at 1pm, individual appointment. Jessi is aware to call for earlier appointment if needed and to use ER for mental health emergencies.Jessi is scheduled for psychiatry appointment 10/20/2020.To rule out Bipolar II and Borderline Personality Disorder. Next Appt Details Provider Name:Eunice Galeano, 2020-10-15 01:00:00 PM, [address], [place], [address] Provider Name:Eunice Galeano, 2020-10-22 01:00:00 PM, [address], [place], [address] Provider Name:Eliana Godfrey, 2020-10-29 0 1:15:00 PM, [address] [place], [address], Insurance Providers Payer Name Payer Address Payer Phone Insured Name Patient Relati onship to Insured Coverage Start Date Coverage End Date MEDICARE Part A and B [address] [facility] [phone] JESSI CLOUD [facility] [address] [address] [facility] [phone] JESSI CLOUD
--- OUTSIDE RECORDS SUMMARY | 2020-10-29 14:37 | CCD ---
Author Author [facility] Syst ems Organization [facility] ems Address Unknown Phone Unavailable Care Team Providers Care Senior Medical Billing Specialist Name Role Phone Eliana Godfrey Unavailable PROBLEMS Type Condition ICD9-CM Code KVZ06-HJ Code Onset Dates Condition S tatus SNOMED Code Notes Problem Insomnia, unspecified type G47.00 Active 48898 2000 Problem Allergic rhinitis, unspecified seasonality, unspecifie d trigger J30.9 Active 12471543 Problem Type 2 diabetes mellitus without complications E11 .9 Active 036424543 Problem Morbid obesity E66.01 Active 545006694 Problem group home current use of insulin Z79.4 Active 160515600 Problem Post-traumatic stress disorder, unspecified F43.10 Active 91866685 Problem Mixed hyperlipidemia E78.2 Active 160587423 Problem Gastroesophageal reflux disease, esophagitis pre sence not specified K21.9 Active 435122060 Problem Reflex sympathetic dystrophy G90.50 Active 128 416214 Problem Hypertension, unspecified type I10 Active 3 5315299 Problem Perimenopause N95.1 Active 577971014588990 ALLERGIES Allergen (clinical drug ingredient) Drug/Non Drug [...] Anaphylaxis Non Drug Allergy Active gabapentin Neurontin([facility] Code:[address]-69) Orbital pain, black dots Drug Allergy Active Magnesium([facility] Code:[address]-10) mouth sores Drug Allergy Active amitriptyline Amitriptyline HCl([facility] Code:[address]-95) Mouth sores Drug Allergy Active pregabalin Lyrica([facility] Code:[address]-43) Orbital pain, black dot s Drug Allergy Active valproate Depakote([facility] Code:[address]-80) REYES Drug Allergy Active IV Dye Anaphylaxis Drug Allergy Active Zinc([facility] Code:83187-[address]368) Hives Drug Allergy Active ENCOUNTERS from 1968 to 2020-10-08 Encounter Location Date Provider Diagnosis [facility] [address] [place] [address] Sep, Eliana Godfrey IMMUNIZATIONS Vaccine Route Administration Date Status Influenza [...] Unknown Language: Question Answer Notes Languages spoken: Senegalese Latter Day: Question Answer Notes Latter Day 33 None Sexual Hx: Question Answer Notes [...] the evening Orally Once a day Active Lrbkrxkv-Cgjkgsios-ME 3.5-75847-8 3 drops in left ear Otic Three times a day for 7 day(s) Apr, Active Toujeo SoloStar 300 UNIT/ML 30 units Subcutaneous Daily for 30 days Active Zyrtec Allergy 10 MG 1 tablet Orally Once a day Active Metformin HCl 1000 MG 1 tablet with meals Orally Twice a day Active [place] 5-325 MG 1 tablet as needed Orally every 6 hrs Active Cymbalta 60 MG 1 capsule Orally Once a day Active Zocor 20 MG 1 tab Orally Once a day Active Omeprazole 40 MG TAKE 1 CAPSULE BY MOUTH ONCE DAILY for 30 Active Test Strips - as directed intravenously bid for 90 days Oct, Active HydrOXYzine Pamoate 25 mg 1 capsule Orally 1 capsule i n the am, 4 at night, 1 cap as needed for 30 days Active Singulair 10 MG 1 tablet in the evening Orally Once a day for 30 days Active Bydureon 2 MG 1 injection Subcutaneous once a week for 30 days Active Flonase 50 MCG/ACT 1 spray in each nostril Nasally Once a day fo r 30 day(s) Aug, Active Zanaflex 2 MG 1 tablet Orally Once a day Active Topamax 50 MG 1 tablet Orally Once a day Active Losartan Potassium 25 MG 1 tablet Orally Once a day Active PROCEDURES No Information RESULTS No Results REASON FOR VISIT COVID MEDICAL (GENERAL) HISTORY Type Description Date Medical [...] Medication Name Sig Start Date Stop Date HydrOXYzine Pamoate 25 mg 1 capsule Orally 1 capsule i n the am, 4 at night, 1 cap as needed for 30 days Metformin HCl 1000 MG 1 tablet with meals Orally Twice a day Toujeo SoloStar 300 UNIT/ML 30 units Subcutaneous Daily for 30 d ays Bydureon 2 MG 1 injection Subcutaneous once a week for 30 days Losartan Potassium 25 MG 1 tablet Orally Once a day Next Appt Details Provider Name:Eunice Galeano, 2020-10-15 01:00:00 PM, [address] [address], [place], [address] Provider Name:Eunice Galeano, 2020-10-22 01:00:00 PM, [address] [address], [place], [address] Provider Name:Eliana Epifanio, 2020-10-29 0 1:15:00 PM, [address] [place], [address], Insurance Providers Payer Name Payer Address Payer Phone Insured Name Patient Relati onship to Insured Coverage Start Date Coverage End Date [facility] [address] [address] [facility] [address] JESSI CLOUD MEDICARE Part A and B [address] [facility] [address] JESSI CLOUD self
--- OUTSIDE RECORDS SUMMARY | 2020-10-29 14:37 | CCD | Continuity of Care Document ---
Author Author Jena LORA Organization Unknown Address [address] [place] [address] [place] [address] Phone [phone] Care Team Providers Care Cloth Stock Sorter Name Role Phone Clif Tapai DO AUTM [phone] [employer] AUTM [phone] Problems Active Problems Provider Date Type 2 [...] r Date Trujeo Christiano Gagnon JR. 10/19/2020 [place] 325 mg Christiano Gagnon JR. 10/19/2020 Prednisone [...]
--- OUTSIDE RECORDS SUMMARY | 2020-10-29 14:37 | CCD ---
Author Author [facility] Organization [facility] ems Address Unknown Phone Unavailable Care Team Providers Care Stone Gang Sawyer Name Role Phone Katherine Yost Unavailable PROBLEMS Type Condition ICD9-CM Code SCR37-EA Code Onset Dates Condition S tatus SNOMED Code Notes Problem Insomnia, unspecified type G47.00 Active 59679 2000 Problem Allergic rhinitis, unspecified seasonality, unspecifie d trigger J30.9 Active 67821409 Problem Type 2 diabetes mellitus without complications E11 .9 Active 660010272 Problem Morbid obesity E66.01 Active 345076215 Problem retirement current use of insulin Z79.4 Active 517871222 Problem Post-traumatic stress disorder, unspecified F43.10 Active 84358633 Problem Mixed hyperlipidemia E78.2 Active 549493382 Problem Gastroesophageal reflux disease, esophagitis pre sence not specified K21.9 Active 414597528 Problem Reflex sympathetic dystrophy G90.50 Active 128 680215 Problem Hypertension, unspecified type I10 Active 3 9928640 Problem Perimenopause N95.1 Active 317717988728612 ALLERGIES Allergen (clinical drug ingredient) Drug/Non Drug [...] Anaphylaxis Non Drug Allergy Active gabapentin Neurontin(ND Code:[address]-36) Orbital pain, black dots Drug Allergy Active Magnesium(ND Code:[address]-63) mouth sores Drug Allergy Active amitriptyline Amitriptyline HCl(NDC Code:[address]-09) Mouth sores Drug Allergy Active pregabalin Lyrica([facility] Code:[address]-63) Orbital pain, black dot s Drug Allergy Active valproate Depakote([facility] Code:[address]-07) REYES Drug Allergy Active IV Dye Anaphylaxis Drug Allergy Active Zinc([facility] Code:33856-72120) Hives Drug Allergy Active ENCOUNTERS from 1968 to 2020-10-19 Encounter Location Date Provider Diagnosis [facility] [address] [place] [address] Oct, Katherine Priyank Bronchitis J40 and Chest congestion R09. 89 IMMUNIZATIONS Vaccine Route Administration Date Status Influenza [...] Unknown Language: Question Answer Notes Languages spoken: [place]inean Advent: Question Answer Notes Advent 33 None Sexual Hx: Question Answer Notes [...] FOR REFERRAL No Information VITAL SIGNS Weight 233.2 lbs Oct, Height 64 in Oct, BMI 40.02 kg/m2 Oct, Heart Rate 86 /min Oct, Temperature 96.1 degrees Fahrenheit Oct, Oximetry 97 Oct, Blood pressure systolic 148 mm Hg Oct, Blood pressure diastolic 96 mm Hg Oct, MEDICATIONS Medication SIG (Take, Route, Frequency, Duration) Notes Start Da te End Date Status Touchai SoloStar 300 UNIT/ML 30 units Subcutaneous Daily for 30 days Active Cymbalta 60 MG 1 capsule Orally Once a day Active Losartan Potassium 25 MG 1 tablet Orally Once a day Active Test Strips - as directed intravenously bid for 90 days Oct, Active Metformin HCl 1000 MG 1 tablet with meals Orally Twice a day Active Zanaflex 2 MG 1 tablet Orally Once a day Active Xyzal 5 MG 1 tablet in the evening Orally Once a day Active Oanuyixg-Bwesfmhjp-XF 3.5-62885-9 3 drops in left ear Otic Three times a day for 7 day(s) Apr, Active Zocor 20 MG 1 tab Orally Once a day Active TraZODone HCl 100 MG 1-2 tablets at bedtime Orally QHS for 90 day(s) Active Bydureon 2 MG 1 injection Subcutaneous once a week for 30 days Active HydrOXYzine Pamoate 25 mg 1 capsule Orally 1 capsule i n the am, 4 at night, 1 cap as needed for 30 days Active ProAir HFA 108 (90 Base) MCG/ACT 1 puff as needed Inha lation every 4 hrs for 10 day(s) Oct, Active Flonase 50 MCG/ACT 1 spray in each nostril Nasally Once a day fo r 30 day(s) Aug, Active Topamax 50 MG 1 tablet Orally Once a day Active Zyrtec Allergy 10 MG 1 tablet Orally Once a day Active Omeprazole 40 MG TAKE 1 CAPSULE BY MOUTH ONCE DAILY for 30 Active [place] 5-325 MG 1 tablet as needed Orally every 6 hrs Active Singulair 10 MG 1 tablet in the evening Orally Once a day for 30 days Active PROCEDURES No Information RESULTS No Results REASON FOR VISIT NAUSEA,VOMITING,COUGH, CONGESTION, HEADACHE, NEGATIVE COVID TEST MEDICAL (GENERAL) HISTORY Type Description Date Medical [...] tonsillectomy 1990 Surgical History club foot repair 1969+1971 Surgical History left dorsal compartment release 1994 Surgical History dorsal stimulator 08/28/2017 Hospitalization History costcochondritis 2011 Hospitalization History Costcochondritis 09/18/18 Goals Section No Information Health Concerns No Information MEDICAL EQUIPMENT No Information MENTAL STATUS No Information FUNCTIONAL STATUS No Information ASSESSMENTS Encounter Date Diagnosis Assessment Notes Treatment Notes Treatm ent Clinical Notes Oct, Bronchitis (ICD-10 - J40) URI and Lower resp tract sxs x1 week with failed courses to prednisone, zpack and Tessalon Perles. COVID negative at . Sxs not worsening or improving. Sxs and exam consistent with bronchitis. Will get CXR to further eval. Start inhaler. ER for new or worsening sxs. F/u with pcp in 2-3 days if not improving. Patient educated on diagnosis, medications, treatments, and expected outcomes. Patient educated on risks, SE/AE, benefits, alternatives of regimen. Discussed emergent signs and symptoms and to seek emergency medical attention if they occur. Patient voiced understanding and had all questions answered. Oct, Chest congestion (ICD-10 - R09.89) PLAN OF TREATMENT Treatment Notes Assessment Notes Clinical Notes Bronchitis URI and Lower resp tract sxs x1 week with failed courses to prednisone, zpack and Tessalon Perles. COVID negative at . Sxs not worsening or improving. Sxs and exam consistent with bronchitis. Will get CXR to further eval. Start inhaler. ER for new or worsening sxs. F/u with pcp in 2-3 days if not improving. Patient educated on diagnosis, medicatio ns, treatments, and expected outcomes. Patient educated on risks, SE/AE, benefits, alternatives of regimen. Discussed emergent signs and symptoms and to seek emergency medical attention if they occur. Patient voiced understanding and had all questions answered. Treatment Notes Test Name Order Date [facility] Chest, 2 view (PA\Lat) 2020-10-19 Next Appt Details 2 - 3 Days Reason: Provider Name:Katherine Duran Priyank, 10-21 03:30:00 PM, [address] [place], [address], Provider Name:Eunice Froylan, 2020-10-22 01:00:00 PM, [address], [address] [address], [place], [address] Provider Name:Eliana Epifanio, 2020-10-29 0 1:15:00 PM, [address], [place], [address], Insurance Providers Payer Name Payer Address Payer Phone Insured Name Patient Relati onship to Insured Coverage Start Date Coverage End Date [facility] [address] [address] [facility] [phone] JESSI CLOUD MEDICARE Part A and B [address] [facility] [phone] JESSI CLOUD self
--- OUTSIDE RECORDS SUMMARY | 2020-10-29 14:37 | CCD ---
Author Author [facility] Organization [facility] Address Unknown Phone Unavailable Care Team Providers Care Toaster Element Repairer Name Role Phone Eliana Godfrey Unavailable PROBLEMS Type Condition ICD9-CM Code UVU98-BR Code Onset Dates Condition S tatus SNOMED Code Notes Problem Insomnia, unspecified type G47.00 Active 85459 2000 Problem Allergic rhinitis, unspecified seasonality, unspecifie d trigger J30.9 Active 13097341 Problem Type 2 diabetes mellitus without complications E11 .9 Active 946388751 Problem Morbid obesity E66.01 Active 443487604 Problem halfway current use of insulin Z79.4 Active 787275982 Problem Post-traumatic stress disorder, unspecified F43.10 Active 11480241 Problem Mixed hyperlipidemia E78.2 Active 989646852 Problem Gastroesophageal reflux disease, esophagitis pre sence not specified K21.9 Active 817757822 Problem Reflex sympathetic dystrophy G90.50 Active 128 242941 Problem Hypertension, unspecified type I10 Active 3 3020074 Problem Perimenopause N95.1 Active 125393652315313 ALLERGIES Allergen (clinical drug ingredient) Drug/Non Drug [...] Anaphylaxis Non Drug Allergy Active gabapentin Neurontin(NDC Code:[address]-55) Orbital pain, black dots Drug Allergy Active Magnesium(NDC Code:[address]-60) mouth sores Drug Allergy Active amitriptyline Amitriptyline HCl(NDC Code:[address]-30) Mouth sores Drug Allergy Active pregabalin Lyrica([facility] Code:[address]-23) Orbital pain, black dot s Drug Allergy Active valproate Depakote([facility] Code:[address]-13) REYES Drug Allergy Active IV Dye Anaphylaxis Drug Allergy Active Zinc([facility] Code:36446-85695) Hives Drug Allergy Active ENCOUNTERS from 1968 to 2020-10-05 Encounter Location Date [facility] [address] [place] [address] Sep, Eliana Godfrey Type 2 diabetes mellitus without complic ations E11.9 IMMUNIZATIONS Vaccine Route Administration Date Status Influenza [...] Unknown Language: Question Answer Notes Languages spoken: Iranian Taoist: Question Answer Notes Taoist 33 None Sexual Hx: Question Answer Notes [...] the evening Orally Once a day Active Ppwvkldu-Xxwsismmm-EQ 3.5-85614-1 3 drops in left ear Otic Three times a day for 7 day(s) Apr, Active Toujeo SoloStar 300 UNIT/ML 30 units Subcutaneous Daily for 30 days Active Zyrtec Allergy 10 MG 1 tablet Orally Once a day Active Metformin HCl 1000 MG 1 tablet with meals Orally Twice a day Active [place] 5-325 MG 1 tablet as needed Orally [...] Information RESULTS No Results REASON FOR VISIT New Refill Request MEDICAL (GENERAL) HISTORY Type Description Date Medical [...] 1969+1970 Surgical History left dorsal compartment release 1995 Surgical History dorsal stimulator 08/28/2017 Hospitalization History costcochondritis 2011 Hospitalization History Costcochondritis 09/18/18 Goals Section No Information Health Concerns No Information MEDICAL EQUIPMENT No Information MENTAL STATUS No Information FUNCTIONAL STATUS No Information ASSESSMENTS Encounter Date Diagnosis Assessment Notes Treatment Notes Treatm ent Clinical Notes Sep, Type 2 diabetes mellitus without complications ( ICD-10 - E11.9) PLAN OF TREATMENT Medication Medication Name Sig [...] Details Provider Name:Eunice Galeano, 2020-10-15 01:00:00 PM, [address] [address], [place], [address] Provider Name:Eunice Galeano, 2020-10-22 01:00:00 PM, [address] [facility] [address], [place], [address] Provider Name:Eliana Godfrey, 2020-10-29 0 1:15:00 PM, [address], [place], [address], Insurance Providers Payer Name Payer Address Payer Phone Insured Name Patient Relati onship to Insured Coverage Start Date Coverage End Date MEDICARE Part A and B [address] [facility] [phone] JESSI CLOUD self [facility] [address] [address] [facility] [phone] JESSI CLOUD
--- OUTSIDE RECORDS SUMMARY | 2020-10-29 14:37 | CCD ---
Author Author [facility] Organization [facility] ems Address Unknown Phone Unavailable Care Team Providers Care Tone Cabinet Assembler Name Role Phone Eunice Galeano Unavailable PROBLEMS Type Condition ICD9-CM Code ZQT71-TP Code Onset Dates Condition S tatus SNOMED Code Notes Problem Insomnia, unspecified type G47.00 Active 54026 2000 Problem Allergic rhinitis, unspecified seasonality, unspecifie d trigger J30.9 Active 95938893 Problem Type 2 diabetes mellitus without complications E11 .9 Active 615529820 Problem Morbid obesity E66.01 Active 747141796 Problem assisted current use of insulin Z79.4 Active 934353215 Problem Post-traumatic stress disorder, unspecified F43.10 Active 51066785 Problem Mixed hyperlipidemia E78.2 Active 091700324 Problem Gastroesophageal reflux disease, esophagitis pre sence not specified K21.9 Active 234136120 Problem Reflex sympathetic dystrophy G90.50 Active 128 430520 Problem Hypertension, unspecified type I10 Active 3 1594461 Problem Perimenopause N95.1 Active 367503457475504 ALLERGIES Allergen (clinical drug ingredient) Drug/Non Drug [...] Anaphylaxis Non Drug Allergy Active gabapentin Neurontin([facility]C Code:[address]-58) Orbital pain, black dots Drug Allergy Active Magnesium([facility]C Code:[address]-07) mouth sores Drug Allergy Active amitriptyline Amitriptyline HCl([facility]C Code:[address]-77) Mouth sores Drug Allergy Active pregabalin Lyrica([facility] Code:[address]-87) Orbital pain, black dot s Drug Allergy Active valproate Depakote([facility] Code:[address]-43) REYES Drug Allergy Active IV Dye Anaphylaxis Drug Allergy Active Zinc([facility] Code:[address]60) Hives Drug Allergy Active ENCOUNTERS from 1968 to 2020-10-22 Encounter Location Date Provider Diagnosis [facility] [address] [facility] [address] [place] [address] 14 Oct, 2020 Eunice Galeano Post-traumatic stress disord er, unspecified F43.10 IMMUNIZATIONS [...] Unknown Language: Question Answer Notes Languages spoken: Setswana Anabaptist: Question Answer Notes Anabaptist 33 None Sexual Hx: Question Answer Notes [...] Notes Start Da te End Date Status Kai SoloStar 300 UNIT/ML 30 units Subcutaneous Daily [...] cap as needed for 30 days Active [place] 5-325 MG 1 tablet as needed Orally [...] Hospitalization History costcochondritis 2011 Hospitalization History Costcochondritis 12/11/18 Goals Section No Information Health Concerns No Information MEDICAL EQUIPMENT No Information MENTAL STATUS No Information FUNCTIONAL STATUS No Information ASSESSMENTS Encounter Date Diagnosis Assessment Notes Treatment Notes Treatm ent Clinical Notes Oct, Post-traumatic stress disorder, unspecified (ICD -10 - F43.10) Jessi attended scheduled follow up appointment. Jessi presents for treatment with history of PTSD and current depressive and anxious symptomology. Processed time since previous appointment, current stressors, discussed efforts made to manage symptoms and negative thoughts. Jessi is scheduled for follow up appointment with this play writer 11/12/2020 at 1pm, individual appointment. Jessi is aware to call for earlier appointment if needed and to use ER for mental health emergencies. Jessi is scheduled for psychiatry appointment 11/17/2020 at 11am. Jessi is also scheduled with PCP 10/29/2020 and may discuss psychiatric medications. To rule out Bipolar II and Borderline Personality Disorder. PLAN OF TREATMENT Treatment Notes Assessment Notes Clinical Notes Post-traumatic stress disorder, unspecified Jessi attended scheduled follow up appointment. Jessi presents for treatment with history of PTSD and current depressive and anxious symptomology. Processed time since previous appointment, current stressors, discussed efforts made to manage symptoms and negative thoughts.Jessi is scheduled for follow up appointment with this play writer 11/12/2020 at 1pm, individual appointment. Jessi is aware to call for earlier appointment if needed and to use ER for mental health emergencies.Jessi is scheduled for psychiatry appointment 11/17/2020 at 11am. Jessi is also scheduled with PCP 10/29/2020 and may discuss psychiatric medications.To rule out Bipolar II and Borderline Personality Disorder. Next Appt Details Provider Name:Eliana Godfrey, 2020-10-29 0 1:15:00 PM, [address] [place], [address], Provider Name:Eunice Galeano 2020-11-12 01:00:00 PM, [address], [place], [address] Provider Name:Eunice Galeano 2020-11-19 01:00:00 PM, [address], [place], [address] Provider Name:Eunice Galeano 2020-12-03 01:00:00 PM, [address], [address], [place], [address] Insurance Providers Payer Name Payer Address Payer Phone Insured Name Patient Relati onship to Insured Coverage Start Date Coverage End Date [facility] [address] [address] [facility] [phone] JESSI CLOUD MEDICARE Part A and B [address] [facility] [phone] JESSI CLOUD self
--- OUTSIDE RECORDS SUMMARY | 2020-10-29 14:37 | CCD ---
Author Author [facility] Organization [facility] ems Address Unknown Phone Unavailable Care Team Providers Care Plastic Cablemaking Machine Operator Name Role Phone Eliana Godfrey Unavailable PROBLEMS Type Condition ICD9-CM Code [id number] Code Onset Dates Condition S tatus SNOMED Code Notes Problem Insomnia, unspecified type G47.00 Active 93393 2000 Problem Allergic rhinitis, unspecified seasonality, unspecifie d trigger J30.9 Active 23421662 Problem Type 2 diabetes mellitus without complications E11 .9 Active 664893165 Problem Morbid obesity E66.01 Active 566316917 Problem intermediate current use of insulin Z79.4 Active 695521850 Problem Post-traumatic stress disorder, unspecified F43.10 Active 59840618 Problem Mixed hyperlipidemia E78.2 Active 291138476 Problem Gastroesophageal reflux disease, esophagitis pre sence not specified K21.9 Active 189598319 Problem Reflex sympathetic dystrophy G90.50 Active 128 043311 Problem Hypertension, unspecified type I10 Active 3 1999503 Problem Perimenopause N95.1 Active 892118611267479 ALLERGIES Allergen (clinical drug ingredient) Drug/Non Drug [...] Anaphylaxis Non Drug Allergy Active gabapentin Neurontin([facility]C Code:[address]-38) Orbital pain, black dots Drug Allergy Active Magnesium([facility]C Code:[address]-94) mouth sores Drug Allergy Active amitriptyline Amitriptyline HCl([facility] Code:[address]-21) Mouth sores Drug Allergy Active pregabalin Lyrica([facility] Code:[address]-55) Orbital pain, black dot s Drug Allergy Active valproate Depakote([facility] Code:[address]-35) REYES Drug Allergy Active IV Dye Anaphylaxis Drug Allergy Active Zinc([facility] Code:[address]) Hives Drug Allergy Active ENCOUNTERS from 1970 to 2020-10-08 Encounter Location Date Provider [facility] [address] [place] [address] Sep, Eliana Godfrey IMMUNIZATIONS Vaccine Route Administration [...] Unknown Language: Question Answer Notes Languages spoken: Mauritian Samaritan: Question Answer Notes Samaritan 33 None Sexual Hx: Question Answer Notes [...] the evening Orally Once a day Active Sbteogml-Lhchodstk-BR 3.5-92492-1 3 drops in left ear Otic Three times a day for 7 day(s) Apr, Active Toujeo SoloStar 300 UNIT/ML 30 units Subcutaneous Daily for 30 days Active Zyrtec Allergy 10 MG 1 tablet Orally Once a day Active Metformin HCl 1000 MG 1 tablet with meals Orally Twice a day Active [place] 5-325 MG 1 tablet as needed Orally [...] Details Provider Name:Eunice Galeano, 2020-10-15 01:00:00 PM, [address] [address], [place], [address] Provider Name:Eunice Galeano, 2020-10-22 01:00:00 PM, [address] [address], [place], [address] Provider Name:Eliana Epifanio, 2020-10-29 0 1:15:00 PM, [address] [place], [address], Insurance Providers Payer Name Payer Address Payer Phone Insured Name Patient Relati onship to Insured Coverage Start Date Coverage End Date MEDICARE Part A and B [address] [facility] [id number] JESSI CLOUD self [facility] [address] [address] [facility] [phone] JESSI CLOUD
--- OUTSIDE RECORDS SUMMARY | 2020-10-29 14:38 | CCD ---
Author Author [facility] Organization [facility] Address Unknown Phone Unavailable Care Team Providers Care Freelance Photographer Name Role Phone Eliana Godfrey Unavailable PROBLEMS Type Condition ICD9-CM Code [id number] Code Onset Dates Condition S tatus SNOMED Code Notes Problem terminal manager current use of insulin Z79.4 Active 154560052 Problem Insomnia, unspecified type G47.00 Active 86845 2000 Problem Allergic rhinitis, unspecified seasonality, unspecifie d trigger J30.9 Active 96245434 Problem Perimenopause N95.1 Active 427374122929305 Problem Mixed hyperlipidemia E78.2 Active 639535114 Problem Morbid obesity E66.01 Active 572152872 Problem Type 2 diabetes mellitus without complications E11 .9 Active 374207746 Problem Gastroesophageal reflux disease, esophagitis pre sence not specified K21.9 Active 997402721 Problem Reflex sympathetic dystrophy G90.50 Active 128 166520 Problem Hypertension, unspecified type I10 Active 3 1604145 ALLERGIES Allergen (clinical drug ingredient) Drug/Non Drug [...] Anaphylaxis Non Drug Allergy Active gabapentin Neurontin([facility] Code:[address]-67) Orbital pain, black dots Drug Allergy Active Magnesium([facility] Code:[address]-35) mouth sores Drug Allergy Active amitriptyline Amitriptyline HCl([facility] Code:[address]-26) Mouth sores Drug Allergy Active pregabalin Lyrica([facility] Code:[address]-08) Orbital pain, black dot s Drug Allergy Active valproate Depakote([facility] Code:[address]-86) REYES Drug Allergy Active IV Dye Anaphylaxis Drug Allergy Active Zinc([facility] Code:[address]) Hives Drug Allergy Active ENCOUNTERS from 1968 to 2020-08-06 Encounter Location Date Provider Diagnosis [facility] [address] [place] [address] Jul, Eliana Godfrey IMMUNIZATIONS Vaccine Route Administration Date [...] Unknown Language: Question Answer Notes Languages spoken: Mohawk Shinto: Question Answer Notes Shinto 33 None [...] MEDICATIONS Medication SIG (Take, Route, Frequency, Duration) Start Date En d Date Status Zocor 20 MG 1 tab Orally Once a day Acti ve Singulair 10 MG 1 tablet in the evening Orally Once a day for 30 da ys Active Toujeo SoloStar 300 UNIT/ML 30 units Subcutaneous Daily Active Losartan Potassium 25 MG 1 tablet Orally Once a day Active Metformin HCl 1000 MG 1 tablet with meals Orally Twice a day Active Xyzal 5 MG 1 tablet in the evening Orally Once a day Active Impfezet-Ucekpcobf-QJ 3.5-38193-7 3 drops in left ear Otic Three times a day for 7 day(s) Apr, Active Omeprazole 40 MG TAKE 1 CAPSULE BY MOUTH ONCE DAILY for 30 Active Flonase 50 MCG/ACT 1 spray in each nostril Nasally Once a d ay for 30 day(s) Aug, Active Bydureon 2 MG 1 injection Subcutaneous once a week Active Zanaflex 2 MG 1 tablet Orally Once a day Active TraZODone HCl 100 MG 1-2 tablets at bedtime Orally QHS for 90 day(s ) Active HydrOXYzine Pamoate 25 mg 1 capsule Orally 1 capsule i n the am, 4 at night, 1 cap as needed for 30 Active Test Strips - as directed intravenously bid for 90 days Oct, 0 Active Lee 5-325 MG 1 tablet as needed Orally every 6 hrs Active Zyrtec Allergy 10 MG 1 tablet Orally Once a day Active Topamax 50 MG 1 tablet Orally Once a day Active Cymbalta 60 MG 1 capsule Orally Once a day Active PROCEDURES No Information RESULTS No Results REASON FOR VISIT PA Levocetirizine 5mg tablets MEDICAL (GENERAL) HISTORY Type Description Date Medical [...] Medication Name Sig Start Date Stop Date Losartan Potassium 25 MG 1 tablet Orally Once a day Jrnxyomc-Gcktqhvyb-NA 3.5-33967-2 3 drops in left ear Otic Three times a day for 7 day(s) Apr, Zocor 20 MG 1 tab Orally Once a day Bydureon 2 MG 1 injection Subcutaneous once a week Touchai SoloStar 300 UNIT/ML 30 units Subcutaneous Daily Metformin HCl 1000 MG 1 tablet with meals Orally Twice a day Insurance Providers Payer Name Payer Address Payer Phone Insured Name Patient Relati onship to Insured Coverage Start Date Coverage End Date [facility] [address] [address] [facility] [phone] JESSI MANCINI MEDICARE Part A and B [address] [facility] [phone] JESSI MANCINI self
--- OUTSIDE RECORDS SUMMARY | 2020-10-29 14:38 | CCD ---
Author Author [facility] Organization [facility] Address Unknown Phone Unavailable Care Team Providers Care Mechanical Maintenance Engineer Name Role Phone Eunice Galeano Unavailable PROBLEMS Type Condition ICD9-CM Code [id number] Code Onset Dates Condition S tatus SNOMED Code Notes Problem Insomnia, unspecified type G47.00 Active 80002 2000 Problem Allergic rhinitis, unspecified seasonality, unspecifie d trigger J30.9 Active 01302768 Problem Type 2 diabetes mellitus without complications E11 .9 Active 052840083 Problem Morbid obesity E66.01 Active 108028499 Problem group home current use of insulin Z79.4 Active 035314734 Problem Post-traumatic stress disorder, unspecified F43.10 Active 77259539 Problem Mixed hyperlipidemia E78.2 Active 629262408 Problem Gastroesophageal reflux disease, esophagitis pre sence not specified K21.9 Active 892783123 Problem Reflex sympathetic dystrophy G90.50 Active 128 331524 Problem Hypertension, unspecified type I10 Active 3 0814233 Problem Perimenopause N95.1 Active 785734022867256 ALLERGIES Allergen (clinical drug ingredient) Drug/Non Drug [...] Anaphylaxis Non Drug Allergy Active gabapentin Neurontin(NDC Code:[address]-90) Orbital pain, black dots Drug Allergy Active Magnesium(NDC Code:[address]-78) mouth sores Drug Allergy Active amitriptyline Amitriptyline HCl(NDC Code:[address]-01) Mouth sores Drug Allergy Active pregabalin Lyrica([facility] Code:[address]-16) Orbital pain, black dot s Drug Allergy Active valproate Depakote([facility] Code:[address]-35) REYES Drug Allergy Active IV Dye Anaphylaxis Drug Allergy Active Zinc([facility] Code:26297-62073) Hives Drug Allergy Active ENCOUNTERS from 1968 to 2020-08-28 Encounter Location Date Provider Diagnosis [facility] [address] [facility] [address] [place] [address] Aug, Eunice Froylan Post-traumatic stress disord er, unspecified [...] Unknown Language: Question Answer Notes Languages spoken: Urdu Rastafari: Question Answer Notes Rastafari 33 None Sexual Hx: Question Answer Notes [...] the evening Orally Once a day Active Trqgwinf-Gbbkzmyqt-DA 3.5-51359-9 3 drops in left ear Otic Three times a day for 7 day(s) Apr, Active Test Strips - as directed intravenously bid for 90 days Oct, Active Zyrtec Allergy 10 MG 1 tablet Orally Once a day Active Cymbalta 60 MG 1 capsule Orally Once a day Active [place] 5-325 MG 1 tablet as needed Orally [...] Notes Treatment Notes Treatm ent Clinical Notes Aug, Post-traumatic stress disorder, unspecified (ICD -10 - F43.10) Jessi attended initial appointment for intake assessment. Jessi presents with history of PTSD and current depressive and anxious symptomology. Denies SI, SH, HI, AVH. Discussed presenting symptoms and current stressors. Pending scheduled for appointment with Psychiatrist, Dr. Lyn, on 09/16/2020 at 11AM. Jessi is scheduled for follow up appointment with this check writer salesperson 09/10/2020 at 1PM. Jessi is aware to call for earlier appointment if needed and to use ER for mental health emergencies. To rule out Bipolar II and Borderline [...] Notes Post-traumatic stress disorder, unspecified Jessi attended initial appointment for intake assessment. Jessi presents with history of PTSD and current depressive and anxious symptomology. Denies SI, SH, HI, AVH. Discussed presenting symptoms and current stressors. Pending scheduled for appointment with Psychiatrist, Dr. Lyn, on 09/16/2020 at 11AM. Jessi is scheduled for follow up appointment with this check writer salesperson 09/10/2020 at 1PM. Jessi is aware to call for earlier appointment if needed and to use ER for mental health emergencies.To rule out Bipolar II and Borderline Personality Disorder. Next Appt Details Provider Name:Eunice Galeano, 2020-09-10 01:00:00 PM, [address], [facility] [[email or web address]] [address], [place], [address] Provider Name:Eliana Godfrey, 2020-10-29 0 1:15:00 PM, [address] [place], [address], Insurance Providers Payer Name Payer Address Payer Phone Insured Name Patient Relati onship to Insured Coverage Start Date Coverage End Date MEDICARE Part A and B [facility] [address] [place] [phone] JESSI CLOUD [facility] [address] [facility] [address] JESSI CLOUD
--- OUTSIDE RECORDS SUMMARY | 2020-10-29 14:38 | CCD ---
Author Author [facility] Organization [facility] Address Unknown Phone Unavailable Care Team Providers Care Plant Accountant Name Role Phone Eunice Galeano Unavailable PROBLEMS Type Condition ICD9-CM Code [id number]-KT Code Onset Dates Condition S tatus SNOMED Code Notes Problem Insomnia, unspecified type G47.00 Active 03869 2000 Problem Allergic rhinitis, unspecified seasonality, unspecifie d trigger J30.9 Active 82929442 Problem Type 2 diabetes mellitus without complications E11 .9 Active 880195135 Problem Morbid obesity E66.01 Active 073513823 Problem [facility] current use of insulin Z79.4 Active 734543743 Problem Post-traumatic stress disorder, unspecified F43.10 Active 78698796 Problem Mixed hyperlipidemia E78.2 Active 503947263 Problem Gastroesophageal reflux disease, esophagitis pre sence not specified K21.9 Active 488447354 Problem Reflex sympathetic dystrophy G90.50 Active 128 600283 Problem Hypertension, unspecified type I10 Active 3 9641040 Problem Perimenopause N95.1 Active 558427322261235 ALLERGIES Allergen (clinical drug ingredient) Drug/Non Drug [...] Anaphylaxis Non Drug Allergy Active gabapentin Neurontin(NDC Code:[address]-33) Orbital pain, black dots Drug Allergy Active Magnesium(NDC Code:[address]-93) mouth sores Drug Allergy Active amitriptyline Amitriptyline HCl([facility]C Code:[address]-35) Mouth sores Drug Allergy Active pregabalin Lyrica([facility] Code:[address]-32) Orbital pain, black dot s Drug Allergy Active valproate Depakote([facility] Code:[address]-29) REYES Drug Allergy Active IV Dye Anaphylaxis Drug Allergy Active Zinc([facility] Code:09791-78267) Hives Drug Allergy Active ENCOUNTERS from 1970 to 2020-09-11 Encounter Location Date Provider Diagnosis [facility] [address] [facility] [address] [place] [address] Sep, Eunice Galeano Post-traumatic stress disord er, unspecified [...] Unknown Language: Question Answer Notes Languages spoken: Malay Jainism: Question Answer Notes Jainism 33 None Sexual Hx: Question Answer Notes [...] the evening Orally Once a day Active Tvuzpgpk-Fvxspbmme-BL 3.5-99499-5 3 drops in left ear Otic Three times a day for 7 day(s) Apr, Active Test Strips - as directed intravenously bid for 90 days Oct, Active Zyrtec Allergy 10 MG 1 tablet Orally Once a day Active Cymbalta 60 MG 1 capsule Orally Once a day Active [facility] 5-325 MG 1 tablet as needed Orally [...] HI, AVH. Discussed presenting symptoms and current stressors, discussed relationship between events/thoughts/emotions/behaviors. Pending scheduled for appointment with Psychiatrist, Dr. Lyn, on 09/16/2020 at 11AM. Jessi is scheduled for follow up appointment with this resume writer 09/17/2020 at 3PM. At this time Jessi plans to bring her for a family session. Jessi is aware to call for earlier [...] HI, AVH. Discussed presenting symptoms and current stressors, discussed relationship between events/thoughts/emotions/behaviors. Pending scheduled for appointment with Psychiatrist, Dr. Lyn, on 09/16/2020 at 11AM. Jessi is scheduled for follow up appointment with this resume writer 09/17/2020 at 3PM. At this time Jessi plans to bring her for a family session. Jessi is aware to call for earlier appointment if needed and to use ER for mental health emergencies.To rule out Bipolar II and Borderline Personality Disorder. Next Appt Details Provider Name:Eunice Galeano, 2020-09-17 03:00:00 PM, [address] [facility] [address], [place], [address] Provider Name:Eliana Godfrey, 2020-10-29 0 1:15:00 PM, [address] [place], [address], Insurance Providers Payer Name Payer Address Payer Phone Insured Name Patient Relati onship to Insured Coverage Start Date Coverage End Date [facility] [address] [address] [facility] [phone] JESSI CLOUD MEDICARE Part A and B [address] [facility] [phone] JESSI CLOUD self
--- OUTSIDE RECORDS SUMMARY | 2020-10-29 14:38 | CCD ---
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 Active 360564647 Problem Insomnia, unspecified type G47.00 Active 11010 2000 Problem Allergic rhinitis, unspecified seasonality, unspecifie d trigger J30.9 Active 67277303 Problem Perimenopause N95.1 Active 548505486349280 Problem Mixed hyperlipidemia E78.2 Active 382643088 Problem Morbid obesity E66.01 Active 602304370 Problem Type 2 diabetes mellitus without complications E11 .9 Active 795455382 Problem Gastroesophageal reflux disease, esophagitis pre sence not specified K21.9 Active 409649686 Problem Reflex sympathetic dystrophy G90.50 Active 128 015647 Problem Hypertension, unspecified type I10 Active 3 2024838 ALLERGIES Allergen (clinical drug ingredient) Drug/Non Drug [...] Anaphylaxis Non Drug Allergy Active gabapentin Neurontin([facility]C Code:[address]-11) Orbital pain, black dots Drug Allergy Active Magnesium(NDC Code:[address]-26) mouth sores Drug Allergy Active amitriptyline Amitriptyline HCl(NDC Code:[address]-05) Mouth sores Drug Allergy Active pregabalin Lyrica([facility] Code:[address]-07) Orbital pain, black dot s Drug Allergy Active valproate Depakote([facility] Code:[address]-80) REYES Drug Allergy Active IV Dye Anaphylaxis Drug Allergy Active Zinc([facility] Code:[address]) Hives Drug Allergy Active ENCOUNTERS from 1968 to 2020-08-14 Encounter Location Date Provider Diagnosis [facility] [address] [place] [address] Aug, Eliana Godfrey Type 2 diabetes mellitus without [...] Unknown Language: Question Answer Notes Languages spoken: Chinese Episcopalian: Question Answer Notes Episcopalian 33 None Sexual Hx: Question Answer Notes [...] the evening Orally Once a day Active Ikckjpoi-Lkaorqkqr-TG 3.5-33761-0 3 drops in left ear Otic Three [...] bid for 90 days Oct, 0 Active [facility] 5-325 MG 1 tablet as needed Orally every 6 hrs Active Zyrtec Allergy 10 MG 1 tablet Orally Once a day Active Topamax 50 MG 1 tablet Orally Once a day Active Cymbalta 60 MG 1 capsule Orally Once a day Active PROCEDURES No Information RESULTS No Results REASON FOR VISIT Referral eye MEDICAL (GENERAL) HISTORY Type Description Date Medical [...] STATUS No Information ASSESSMENTS Encounter Date Diagnosis Notes Aug, Type 2 diabetes mellitus without complic ations (ICD-10 - E11.9) PLAN OF TREATMENT Medication Medication Name Sig Start Date Stop Date Losartan Potassium 25 MG 1 tablet Orally Once a day Vzzfvule-Tfjsdzjuf-OP 3.5-14989-3 3 drops in left ear Otic Three times a day for 7 day(s) Apr, Zocor 20 MG 1 tab Orally Once a day Bydureon 2 MG 1 injection Subcutaneous once a week Toujeo SoloStar 300 UNIT/ML 30 units Subcutaneous Daily Metformin HCl 1000 MG 1 tablet with meals Orally Twice a day Next Appt Details Provider Name:Eunice Galeano, 2020-08-17 03:00:00 PM, [address] [facility], [facility] [address], [place], [address] Provider Name:Eliana Godfrey, 2020-08-27 0 2:15:00 PM, [address], [place], [address], Insurance Providers Payer Name Payer Address Payer Phone Insured Name Patient Relati onship to Insured Coverage Start Date Coverage End Date MEDICARE Part A and B [address] [facility][1] [phone] JESSI CLOUD self [facility] [id number] [facility] [id number] JESSI CLOUD
--- OUTSIDE RECORDS SUMMARY | 2020-10-29 14:38 | CCD ---
Author Author [facility] Organization 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 Name Role Phone Eunice Galeano Unavailable PROBLEMS Type Condition ICD9-CM Code RQH53-VY Code Onset Dates Condition S tatus SNOMED Code Notes Problem Insomnia, unspecified type G47.00 Active 41343 2000 Problem Allergic rhinitis, unspecified seasonality, unspecifie d trigger J30.9 Active 10947125 Problem Type 2 diabetes mellitus without complications E11 .9 Active 215591483 Problem Morbid obesity E66.01 Active 755606351 Problem [facility] current use of insulin Z79.4 Active 959652498 Problem Post-traumatic stress disorder, unspecified F43.10 Active 80226515 Problem Mixed hyperlipidemia E78.2 Active 187342094 Problem Gastroesophageal reflux disease, esophagitis pre sence not specified K21.9 Active 596678286 Problem Reflex sympathetic dystrophy G90.50 Active 128 785866 Problem Hypertension, unspecified type I10 Active 3 9072833 Problem Perimenopause N95.1 Active 062042071401575 ALLERGIES Allergen (clinical drug ingredient) Drug/Non Drug [...] Anaphylaxis Non Drug Allergy Active gabapentin Neurontin([facility]C Code:[address]-14) Orbital pain, black dots Drug Allergy Active Magnesium(NDC Code:[address]-60) mouth sores Drug Allergy Active amitriptyline Amitriptyline HCl([facility]C Code:[address]-54) Mouth sores Drug Allergy Active pregabalin Lyrica([facility] Code:[address]-55) Orbital pain, black dot s Drug Allergy Active valproate Depakote([facility] Code:[address]-51) REYES Drug Allergy Active IV Dye Anaphylaxis Drug Allergy Active Zinc([facility] Code:05743-07375) Hives Drug Allergy Active ENCOUNTERS from 1968 to 2020-08-19 Encounter Location Date Provider Diagnosis [facility] [address] [facility] [address] [place] [address] 09 Aug, 2020 Eunice Froylan Post-traumatic stress disord er, unspecified [...] Unknown Language: Question Answer Notes Languages spoken: Arabic Jainism: Question Answer Notes Jainism 33 None [...] the evening Orally Once a day Active Qpouzhcj-Iroccgkay-BP 3.5-71053-4 3 drops in left ear Otic Three [...] bid for 90 days Oct, 0 Active [place] 5-325 MG 1 tablet as needed Orally [...] Information ASSESSMENTS Encounter Date Diagnosis Notes Aug, Post-traumatic stress disorder, unspecif ied (ICD-10 - F43.10) PLAN OF TREATMENT Medication Medication Name Sig Start Date Stop Date Losartan Potassium 25 MG 1 tablet Orally Once a day Ojvkorwj-Bkehvfils-TO 3.5-19142-5 3 drops in left ear Otic Three times a day for 7 day(s) Apr, Zocor 20 MG 1 tab Orally Once a day Bydureon 2 MG 1 injection Subcutaneous once a week Toujeo SoloStar 300 UNIT/ML 30 units Subcutaneous Daily Metformin HCl 1000 MG 1 tablet with meals Orally Twice a day Treatment Notes Assessment Notes Clinical Notes Post-traumatic stress disorder, unspecified Jessi attended initial appointment for intake assessment. Jessi presents with history of PTSD and current depressive and anxious symptomology. High energy, rapid speech, excessive thoughts of worthlessness and thoughts about . Denies active SI, SH, HI, AVH. Presents with history of impulsive behavior including excessive spending. This underwriter solicitation director gathered psycho social information relevant to the intake assessment. Jessi is active and engaged and provides information. Referred and scheduled for appointment with Psychiatrist, Dr. Lyn, on 09/16/2020 at 11AM. Jessi is scheduled for follow up appointment with this underwriter solicitation director 08/27/2020 at 1PM. Jessi is aware to call for earlier appointment if needed and to use ER for mental health emergencies.To rule out Bipolar II and Borderline Personality Disorder. Next Appt Details Provider Name:Eunice Galeano 2020-08-27 01:00:00 PM, [address], [address] Provider Name:Eliana Epifanio 2020-08-27 0 2:15:00 PM, [address] [place], [address], Insurance Providers Payer Name Payer Address Payer Phone Insured Name Patient Relati onship to Insured Coverage Start Date Coverage End Date R [facility] [address] [id number] [facility] [phone] JESSI CLOUD MEDICARE Part A and B [address] [place] [phone] JESSI CLOUD self
--- OUTSIDE RECORDS SUMMARY | 2020-10-29 14:38 | CCD ---
Author Author [facility] Organization [facility] Address Unknown Phone Unavailable Care Team Providers Care Sustainability Coach Name Role Phone Eliana Godfrey Unavailable PROBLEMS Type Condition ICD9-CM Code YTP44-UI Code Onset Dates Condition S tatus SNOMED Code Notes Problem Insomnia, unspecified type G47.00 Active 88580 2000 Problem Allergic rhinitis, unspecified seasonality, unspecifie d trigger J30.9 Active 30689467 Problem Type 2 diabetes mellitus without complications E11 .9 Active 614505454 Problem Morbid obesity E66.01 Active 594393423 Problem intermediate current use of insulin Z79.4 Active 713332991 Problem Post-traumatic stress disorder, unspecified F43.10 Active 68117320 Problem Mixed hyperlipidemia E78.2 Active 880674456 Problem Gastroesophageal reflux disease, esophagitis pre sence not specified K21.9 Active 968997379 Problem Reflex sympathetic dystrophy G90.50 Active 128 361533 Problem Hypertension, unspecified type I10 Active 3 5802582 Problem Perimenopause N95.1 Active 187753657018603 ALLERGIES Allergen (clinical drug ingredient) Drug/Non Drug [...] Anaphylaxis Non Drug Allergy Active gabapentin Neurontin([facility]C Code:[address]-63) Orbital pain, black dots Drug Allergy Active Magnesium([facility] Code:[address]-80) mouth sores Drug Allergy Active amitriptyline Amitriptyline HCl([facility] Code:[address]-03) Mouth sores Drug Allergy Active pregabalin Lyrica([facility] Code:[address]-73) Orbital pain, black dot s Drug Allergy Active valproate Depakote([facility] Code:[address]-69) REYES Drug Allergy Active IV Dye Anaphylaxis Drug Allergy Active Zinc([facility] Code:[address]48-30303) Hives Drug Allergy Active ENCOUNTERS from 1968 to 2020-09-01 Encounter Location Date Provider Diagnosis [facility] [address] [place] [address] Aug, Eliana Godfrey Type 2 diabetes mellitus without complic ations E11.9 and Hypertension, unspecified type I10 IMMUNIZATIONS Vaccine Route Administration Date Status Influenza [...] Language: Question Answer Notes Languages spoken: Greek Quaker: Question Answer Notes Quaker 33 None Sexual Hx: Question Answer Notes [...] FOR REFERRAL No Information VITAL SIGNS Weight 232 lbs Aug, Height 64 in Aug, BMI 39.82 kg/m2 Aug, Heart Rate 89 /min Aug, Respiratory Rate 18 /min Aug, Temperature 99.0 degrees Fahrenheit Aug, Oximetry 97% Aug, Blood pressure systolic 138 mm Hg Aug, Blood pressure diastolic 83 mm Hg Aug, MEDICATIONS Medication SIG (Take, Route, Frequency, Duration) Notes Start Da te End Date Status TraZODone HCl 100 MG 1-2 tablets at bedtime Orally QHS for 90 day(s) Active Xyzal 5 MG 1 tablet in the evening Orally Once a day Active Kusmndfw-Tnuxrfxmr-AV 3.5-11239-7 3 drops in left ear Otic Three times a day for 7 day(s) Apr, Active Test Strips - as directed intravenously bid for 90 days Oct, Active Zyrtec Allergy 10 MG 1 tablet Orally Once a day Active Cymbalta 60 MG 1 capsule Orally Once a day Active [place] 5-325 MG 1 tablet as needed Orally [...] Treatment Notes Treatm ent Clinical Notes Aug, Type 2 diabetes mellitus without complications ( ICD-10 - E11.9) Congratulated the patient on improved control, she's been aggressively trying to lose weight, increase her activity levels, encouraged her to continue this, we'll follow-up with her in 2 months, this would represent a full 3 months since we made the medication changes. Patient verbalizes understanding and agreement with the plan. Aug, Hypertension, unspecified type (ICD-10 - I10) suspect elevation secondary to psychiatric distress, we extensively discussed her current mental state, after 5-10 minutes. She did calm down, pressure was normal, she'll take her blood pressure intermittently to ensure control. PLAN OF TREATMENT Medication Medication Name Sig Start Date Stop Date Toujeo SoloStar 300 UNIT/ML 30 units Subcutaneous Daily Metformin HCl 1000 MG 1 tablet with meals Orally Twice a day Losartan Potassium 25 MG 1 tablet Orally Once a day Bydureon 2 MG 1 injection Subcutaneous once a week Treatment Notes Assessment Notes Clinical Notes Type 2 diabetes mellitus without complications Congratulated the patient on improved control, she's been aggressively trying to lose weight, increase her activity levels, encouraged her to continue this, we'll follow-up with her in 2 months, this would represent a full 3 months since we made the medication changes. Patient verbalizes understanding and agreement with the plan. Hypertension, unspecified type suspect e levation secondary to psychiatric distress, we extensively discussed her current mental state, after 5-10 minutes. She did calm down, pressure was normal, she'll take her blood pressure inte rmittently to ensure control. Future Test Test Name Order Date HEMOGLOBIN A1c [id number] MICROALBUMIN RANDOM 20201027 LIPID PANEL (CARDIAC RISK) 20201027 Comprehensive Metabolic Profile (CMP) 20201027 CBC with Differential 20201027 Next Appt Details 2 Months Reason:Diabetes Provider Name:Eunice Galeano, 2020-09-10 01:00:00 PM, [address], [facility] [address], [place], [address] Provider Name:Eliana Godfrey, 2020-10-29 0 1:15:00 PM, [address], [place], [address], Follow Up:2 MonthsDiabetes Insurance Providers Payer Name Payer Address Payer Phone Insured Name Patient Relati onship to Insured Coverage Start Date Coverage End Date [facility] [address] [id number] [facility] [phone] JESSI CLOUD MEDICARE Part A and B [address] [facility] [phone] JESSI CLOUD self
--- OUTSIDE RECORDS SUMMARY | 2020-10-29 14:39 | CCD ---
Author Author [facility] Organization [facility] Address Unknown Phone Unavailable Care Team Providers Care Shop Mechanic Helper Name Role Phone Hill, A Che STRAND AND BINDER CONTROLLER Unavailable Unavailable Hill, A Che STRAND AND BINDER CONTROLLER Unavailable Unavailable Hill, A Ceh STRAND AND BINDER CONTROLLER Unavailable Unavailable Hill, A Che STRAND AND BINDER CONTROLLER Unavailable Unavailable Hill, A Che STRAND AND BINDER CONTROLLER Unavailable Unavailable Hill, A Che STRAND AND BINDER CONTROLLER Unavailable Unavailable Hill, A Che STRAND AND BINDER CONTROLLER Unavailable Unavailable Hill, A Che STRAND AND BINDER CONTROLLER Unavailable Unavailable Hill, A Che STRAND AND BINDER CONTROLLER Unavailable Unavailable Hill, A Che STRAND AND BINDER CONTROLLER Unavailable Unavailable Hill, A Che STRAND AND BINDER CONTROLLER Unavailable Unavailable Hill, A Che STRAND AND BINDER CONTROLLER Unavailable Unavailable Hill, A Che STRAND AND BINDER CONTROLLER Unavailable Unavailable Hill, A Che STRAND AND BINDER CONTROLLER Unavailable Unavailable Hill, A Che STRAND AND BINDER CONTROLLER Unavailable Unavailable Hill, A Che STRAND AND BINDER CONTROLLER Unavailable Unavailable Hill, A Che STRAND AND BINDER CONTROLLER Unavailable Unavailable Hill, A Che STRAND AND BINDER CONTROLLER Unavailable Unavailable Hill, A Che STRAND AND BINDER CONTROLLER Unavailable Unavailable Hill, A Che STRAND AND BINDER CONTROLLER Unavailable Unavailable Hill, A Che STRAND AND BINDER CONTROLLER Unavailable Unavailable Kayley Khan-PA Unavailable Unavailable Faltyn, R Tato R-PA Unavailable Unavailable Faltyn, R Tato R-PA Unavailable Unavailable Faltyn, R Tato R-PA Unavailable Unavailable Faltyn, R Tato R-PA Unavailable Unavailable Faltyn, R Tato R-PA Unavailable Unavailable Faltyn, R Tato R-PA Unavailable Unavailable Faltyn, R Tato R-PA Unavailable Unavailable Faltyn, R Tato R-PA Unavailable Unavailable Faltyn, R Tato R-PA Unavailable Unavailable Faltyn, R Tato R-PA Unavailable Unavailable Faltyn, R Tato R-PA Unavailable Unavailable Faltyn, R Tato R-PA Unavailable Unavailable Faltyn, R Tato R-PA Unavailable Unavailable Faltyn, R Tato R-PA Unavailable Unavailable Faltyn, R Tato R-PA Unavailable Unavailable Faltyn, R Tato R-PA Unavailable Unavailable Faltyn, R Tato R-PA Unavailable Unavailable Faltyn, R Tato R-PA Unavailable Unavailable Faltyn, R Tato R-PA Unavailable Unavailable Faltyn, R Tato R-PA Unavailable Unavailable Faltyn, R Tato R-PA Unavailable Unavailable Faltyn, R Tato R-PA Unavailable Unavailable Faltyn, R Tato R-PA Unavailable Unavailable Faltyn, R Tato R-PA Unavailable Unavailable Faltyn, R Tato R-PA Unavailable Unavailable Faltyn, R Tato R-PA Unavailable Unavailable Faltyn, R Tato R-PA Unavailable Unavailable Faltyn, R Tato R-PA Unavailable Unavailable Faltyn, R Tato R-PA Unavailable Unavailable Faltyn, R Tato R-PA Unavailable Unavailable Faltyn, R Tato R-PA Unavailable Unavailable Faltyn, R Tato R-PA Unavailable Unavailable Faltyn, R Tato R-PA Unavailable Unavailable Mandappa, Annabella CASAC Unavailable Unavailable Mandappa, Annabella CASAC Unavailable Unavailable Mandappa, Annabella CASAC Unavailable Unavailable Mandappa, Annabella CASAC Unavailable Unavailable Profetto, A Braydon PHOTOCOPYING EQUIPMENT MECHANIC Unavailable Unavailable Profetto, A Braydon PHOTOCOPYING EQUIPMENT MECHANIC Unavailable Unavailable Profetto, A Braydon PHOTOCOPYING EQUIPMENT MECHANIC Unavailable Unavailable Profetto, A Braydon PHOTOCOPYING EQUIPMENT MECHANIC Unavailable Unavailable Profetto, A Braydon PHOTOCOPYING EQUIPMENT MECHANIC Unavailable Unavailable Profetto, A Braydon PHOTOCOPYING EQUIPMENT MECHANIC Unavailable Unavailable Profetto, A Braydon PHOTOCOPYING EQUIPMENT MECHANIC Unavailable Unavailable Profetto, A Braydon PHOTOCOPYING EQUIPMENT MECHANIC Unavailable Unavailable Profetto, A Braydon PHOTOCOPYING EQUIPMENT MECHANIC Unavailable Unavailable Profetto, A Braydon PHOTOCOPYING EQUIPMENT MECHANIC Unavailable Unavailable Profetto, A Braydon PHOTOCOPYING EQUIPMENT MECHANIC Unavailable Unavailable Profetto, A Braydon PHOTOCOPYING EQUIPMENT MECHANIC Unavailable Unavailable Profetto, A Braydon PHOTOCOPYING EQUIPMENT MECHANIC Unavailable Unavailable Profetto, A Braydon PHOTOCOPYING EQUIPMENT MECHANIC Unavailable Unavailable Profetto, A Braydon PHOTOCOPYING EQUIPMENT MECHANIC Unavailable Unavailable Profetto, A Braydon PHOTOCOPYING EQUIPMENT MECHANIC Unavailable Unavailable Profetto, A Braydon PHOTOCOPYING EQUIPMENT MECHANIC Unavailable Unavailable Profetto, A Braydon PHOTOCOPYING EQUIPMENT MECHANIC Unavailable Unavailable Profetto, A Braydon PHOTOCOPYING EQUIPMENT MECHANIC Unavailable Unavailable Profetto, A Braydon PHOTOCOPYING EQUIPMENT MECHANIC Unavailable Unavailable Profetto, A Braydon PHOTOCOPYING EQUIPMENT MECHANIC Unavailable Unavailable Profetto, A Braydon PHOTOCOPYING EQUIPMENT MECHANIC Unavailable Unavailable Profetto, A Braydon PHOTOCOPYING EQUIPMENT MECHANIC Unavailable Unavailable Profetto, A Braydon PHOTOCOPYING EQUIPMENT MECHANIC Unavailable Unavailable Profetto, A Braydon PHOTOCOPYING EQUIPMENT MECHANIC Unavailable Unavailable Profetto, A Braydon PHOTOCOPYING EQUIPMENT MECHANIC Unavailable Unavailable Profetto, A Braydon PHOTOCOPYING EQUIPMENT MECHANIC Unavailable Unavailable Profetto, A Braydon PHOTOCOPYING EQUIPMENT MECHANIC Unavailable Unavailable Profetto, A Braydon PHOTOCOPYING EQUIPMENT MECHANIC Unavailable Unavailable ZACKERYOSTJF BHANDARI MD Unavailable Unavailable CHROSTOWSKIJF MD Unavailable Unavailable CHROSTOWSKIGLOJF MD Unavailable Unavailable CHROSTOWSKIJF MD Unavailable Unavailable CHROSTOWSKIGLOJF MD Unavailable Unavailable CHROSTOWSKIGLOJF MD Unavailable Unavailable CHROSTOWSKIGLOJF MD Unavailable Unavailable CHROSTOWSKIJF MD Unavailable Unavailable CHROSTOWSKIJF MD Unavailable Unavailable CHROSTOWSKIGLOJF MD Unavailable Unavailable CHROSTOWSKI JF MD Unavailable Unavailable CHROSTOWSKIGLOJF MD Unavailable Unavailable CHROSTOWSKI JF MD Unavailable Unavailable CHROSTOWSKI JF MD Unavailable Unavailable CHROSTOWSKI JF MD Unavailable Unavailable CHROSTOWSKI FJ MD Unavailable Unavailable CHROSTOWSKI JF MD Unavailable Unavailable CHROSTOWSKI JF MD Unavailable Unavailable CHROSTOWSKI JF MD Unavailable Unavailable CHROSTOWSKI JF MD Unavailable Unavailable CHROSTOWSKIGLOJF MD Unavailable Unavailable CHROSTOWSKIGLOJF MD Unavailable Unavailable CHROSTOWSKI JF MD Unavailable Unavailable CHROSTOWSKI JF MD Unavailable Unavailable CHROSTOWSKI JF MD Unavailable Unavailable CHROSTOWSKI JF MD Unavailable Unavailable CHROSTOWSKI JF MD Unavailable Unavailable CHROSTOWSKI, JF MD Unavailable Unavailable CHROSTOWSKIJF MD Unavailable Unavailable CHROSTOWSKIJF MD Unavailable Unavailable CHROSTOWSKI, JF DEMARCO Unavailable Unavailable CHROSTOWSKI, JF DEMARCO Unavailable Unavailable CHROSTOWSKI, JF DEMARCO Unavailable Unavailable CHROSTOWSKIJF MD Unavailable Unavailable CHROSTOWSKIJF MD Unavailable Unavailable CHROSTOWSKI, JF DEMARCO Unavailable Unavailable CHROSTOWSKI, JF DEMARCO Unavailable Unavailable CHROSTOWSKI, JF DEMARCO Unavailable Unavailable CHROSTOWSKI, JF DEMARCO Unavailable Unavailable CHROSTOWSKIJF MD Unavailable Unavailable SAADA, A FAHED MD Unavailable Unavailable SAADA, A FAHED MD Unavailable Unavailable SAADA, A FAHED MD Unavailable Unavailable SAADA, A FAHED MD Unavailable Unavailable SAADA, A FAHED MD Unavailable Unavailable SAADA, A FAHED MD Unavailable Unavailable SAADA, A FAHED MD Unavailable Unavailable SAADA, A FAHED MD Unavailable Unavailable SAADA, A FAHED MD Unavailable Unavailable SAADA, A FAHED MD Unavailable Unavailable SAADA, A FAHED MD Unavailable Unavailable SAADA, A FAHED MD Unavailable Unavailable SAADA, A FAHED MD Unavailable Unavailable SAADA, A FAHED MD Unavailable Unavailable SAADA, A FAHED MD Unavailable Unavailable SAADA, A FAHED MD Unavailable Unavailable SAADA, A FAHED MD Unavailable Unavailable SAADA, A FAHED MD Unavailable Unavailable SAADA, A FAHED MD Unavailable Unavailable SAADA, A FAHED MD Unavailable Unavailable Aissatou POOL MD Unavailable Unavailable Aissatou POOL MD Unavailable Unavailable Aissatou POOL MD Unavailable Unavailable Aissatou POOL MD Unavailable Unavailable Aissatou POOL MD Unavailable Unavailable Aissatou POOL MD Unavailable Unavailable Aissatou POOL MD Unavailable Unavailable Aissatou POOL MD Unavailable Unavailable Aissatou POOL MD Unavailable Unavailable Aissatou POOL MD Unavailable Unavailable Aissatou POOL MD Unavailable Unavailable Aissatou POOL MD Unavailable Unavailable Aissatou POOL MD Unavailable Unavailable Aissatou POOL MD Unavailable Unavailable Aissatou POOL MD Unavailable Unavailable Aissatou POOL MD Unavailable Unavailable Aissatou POOL MD Unavailable Unavailable Aissatou POOL MD Unavailable Unavailable Aissatou POOL MD Unavailable Unavailable Aissatou POOL MD Unavailable Unavailable Aissatou POOL MD Unavailable Unavailable Aissatou POOL MD Unavailable Unavailable Aissatou POOL MD Unavailable Unavailable Aissatou POOL MD Unavailable Unavailable Aissatou POOL MD Unavailable Unavailable Aissatou POOL MD Unavailable Unavailable Aissatou POOL MD Unavailable Unavailable Aissatou POOL MD Unavailable Unavailable Aissatou POOL MD Unavailable Unavailable Aissatou POOL MD Unavailable Unavailable Aissatou POOL MD Unavailable Unavailable Aissatou POOL MD Unavailable Unavailable Aissatou POOL MD Unavailable Unavailable Aissatou POOL MD Unavailable Unavailable Aissatou POOL MD Unavailable Unavailable Aissatou POOL MD Unavailable Unavailable Aissatou POOL MD Unavailable Unavailable Aissatou POOL MD Unavailable Unavailable Aissatou POOL MD Unavailable Unavailable Aissatou POOL MD Unavailable Unavailable Aissatou POOL MD Unavailable Unavailable Aissatou POOL MD Unavailable Unavailable Aissatou POOL MD Unavailable Unavailable Aissatou POOL MD Unavailable Unavailable Aissatou POOL MD Unavailable Unavailable Aissatou POOL MD Unavailable Unavailable Aissatou POOL MD Unavailable Unavailable Aissatou POOL MD Unavailable Unavailable Aissatou POOL MD Unavailable Unavailable Aissatou POOL MD Unavailable Unavailable Aissatou POOL MD Unavailable Unavailable Aissatou POOL MD Unavailable Unavailable Aissatou POOL MD Unavailable Unavailable Aissatou POOL MD Unavailable Unavailable Aissatou POOL MD Unavailable Unavailable Aissatou POOL MD Unavailable Unavailable Aissatou POOL MD Unavailable Unavailable Aissatou POOL MD Unavailable Unavailable Aissatou POOL MD Unavailable Unavailable Aissatou POOL MD Unavailable Unavailable Aissatou POOL MD Unavailable Unavailable Aissatou POOL MD Unavailable Unavailable Aissatou POOL MD Unavailable Unavailable Aissatou POOL MD Unavailable Unavailable Aissatou POOL MD Unavailable Unavailable Aissatou POOL MD Unavailable Unavailable Aissatou POOL MD Unavailable Unavailable Aissatou POOL MD Unavailable Unavailable Aissatou POOL MD Unavailable Unavailable Aissatou POOL MD Unavailable Unavailable Aissatou POOL MD Unavailable Unavailable Aissatou POOL MD Unavailable Unavailable Aissatou POOL MD Unavailable Unavailable Aissatou POOL MD Unavailable Unavailable Aissatou POOL MD Unavailable Unavailable Aissatou POOL MD Unavailable Unavailable Aissatou POOL MD Unavailable Unavailable Aissatou POOL MD Unavailable Unavailable Aissatou POOL MD Unavailable Unavailable Aissatou POOL MD Unavailable Unavailable Aissatou POOL MD Unavailable Unavailable Aissatou POOL MD Unavailable Unavailable Aissatou POOL MD Unavailable Unavailable Aissatou POOL MD Unavailable Unavailable Aissatou POOL MD Unavailable Unavailable Aissatou POOL MD Unavailable Unavailable Aissatou POOL MD Unavailable Unavailable Dell, L Shelyta PHOTOCOPYING EQUIPMENT MECHANIC Unavailable Unavailable Dell, L Shelyta PHOTOCOPYING EQUIPMENT MECHANIC Unavailable Unavailable Dell, L Shelyta PHOTOCOPYING EQUIPMENT MECHANIC Unavailable Unavailable Dell, L Shelyta PHOTOCOPYING EQUIPMENT MECHANIC Unavailable Unavailable Dell, L Shelyta PHOTOCOPYING EQUIPMENT MECHANIC Unavailable Unavailable Dell, L Shelyta PHOTOCOPYING EQUIPMENT MECHANIC Unavailable Unavailable Dell, L Shelyta PHOTOCOPYING EQUIPMENT MECHANIC Unavailable Unavailable Dell, L Shelyta PHOTOCOPYING EQUIPMENT MECHANIC Unavailable Unavailable Dell, L Shelyta PHOTOCOPYING EQUIPMENT MECHANIC Unavailable Unavailable Dell, L Shelyta PHOTOCOPYING EQUIPMENT MECHANIC Unavailable Unavailable Dell, L Shelyta PHOTOCOPYING EQUIPMENT MECHANIC Unavailable Unavailable Dell, L Shelyta PHOTOCOPYING EQUIPMENT MECHANIC Unavailable Unavailable Dell, L Shelyta PHOTOCOPYING EQUIPMENT MECHANIC Unavailable Unavailable Dell, L Shelyta PHOTOCOPYING EQUIPMENT MECHANIC Unavailable Unavailable Dell, L Shelyta PHOTOCOPYING EQUIPMENT MECHANIC Unavailable Unavailable Dell, L Shelyta PHOTOCOPYING EQUIPMENT MECHANIC Unavailable Unavailable Dell, L Shelyta PHOTOCOPYING EQUIPMENT MECHANIC Unavailable Unavailable Dell, L Shelyta PHOTOCOPYING EQUIPMENT MECHANIC Unavailable Unavailable Dell, L Shelyta PHOTOCOPYING EQUIPMENT MECHANIC Unavailable Unavailable Dell, L Shelyta PHOTOCOPYING EQUIPMENT MECHANIC Unavailable Unavailable Dell, L Shelyta PHOTOCOPYING EQUIPMENT MECHANIC Unavailable Unavailable Dell, L Shelyta PHOTOCOPYING EQUIPMENT MECHANIC Unavailable Unavailable Dell, L Shelyta PHOTOCOPYING EQUIPMENT MECHANIC Unavailable Unavailable Emilee Botello 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 Unavailable Unavaila ble Ryfun, Emilee Cravenfer 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 Unavailable Unavaila ble Ryfun, Emilee Naranjo 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 Unavailable Unavaila ble Ryfun, Emilee Cravenfer 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 Unavailable Unavaila ble Ryfun, Emilee Cravenfer 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 Unavailable Unavaila ble Ryfun, Emilee Cravenfer 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 Unavailable Unavaila ble Ryfun, Emilee Cravenfer 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 Unavailable Unavaila ble Ryfun, Emilee Cravenfer 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 Unavailable Unavaila ble Ryfun, Emilee Cravenfer 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 Unavailable Unavaila ble Ryfun, Emilee Oliviernifer 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 Unavailable Unavaila ble Ryfun, Emilee Cravenfer 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 Unavailable Unavaila ble Ryfun, Emilee Cravenfer 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 Unavailable Unavaila ble Ryfun, Emilee Cravenfer 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 Unavailable Unavaila ble Ryfun, Emilee Cravenfer 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 Unavailable Unavaila ble Ryfun, Emilee Cravenfer 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 Unavailable Unavaila ble Ryfun, Emilee Oliviernifer 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 Unavailable Unavaila ble Ryfun, Emilee Oliviernifer 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 Unavailable Unavaila ble Ryfun, Emilee Cravenfer 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 Unavailable Unavaila ble Ryfun, Emilee Cravenfer 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 Unavailable Unavaila ble Ryfun, Emilee Oliviernifer 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 Unavailable Unavaila ble Ryfun, Emilee Cravenfer 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 Unavailable Unavaila ble Ryfun, Emilee Oliviernifer 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 Unavailable Unavaila ble Ryfun, Emilee Oliviernifer 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 Unavailable Unavaila ble Ryfun, Emilee Oliviernifer 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 Unavailable Unavaila ble Ryfun, Emilee Oliviernifer 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 Unavailable Unavaila ble Ryfun, Emilee Oliviernifer 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 Unavailable Unavaila ble Ryfun, Emilee Cravenfer 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 Unavailable Unavaila ble Ryfun, Emilee Oliviernifer 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 Unavailable Unavaila ble Ryfun, Emilee Cravenfer 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 Unavailable Unavaila ble Ryfun, Emilee Cravenfer 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 Unavailable Unavaila ble Omer FENTON MD Unavailable Unavailable Omer FENTON MD Unavailable Unavailable Omer FENTON MD Unavailable Unavailable Omer FENTON MD Unavailable Unavailable Omer FENTON MD Unavailable Unavailable Omer FENTON MD Unavailable Unavailable Omer FENTON MD Unavailable Unavailable Omer FENTON MD Unavailable Unavailable Omer FENTON MD Unavailable Unavailable Omer FENTON MD Unavailable Unavailable Omer FENTON MD Unavailable Unavailable Omer FENTON MD Unavailable Unavailable Omer FENTON MD Unavailable Unavailable FENTONOmer MD Unavailable Unavailable FENTONOmer MD Unavailable Unavailable Omer FENTON MD Unavailable Unavailable FENTONOmer MD Unavailable Unavailable Omer FENTON MD Unavailable Unavailable Omer FENTON MD Unavailable Unavailable Omer FENTON MD Unavailable Unavailable Omer FENTON MD Unavailable Unavailable Omer FENTON MD Unavailable Unavailable Omer FENTON MD Unavailable Unavailable Omer FENTON MD Unavailable Unavailable Omer FENTON MD Unavailable Unavailable Omer FENTON MD Unavailable Unavailable Omer FENTON MD Unavailable Unavailable Omer FENTON MD Unavailable Unavailable Omer FENTON MD Unavailable Unavailable Omer FENTON MD Unavailable Unavailable Omer FENTON MD Unavailable Unavailable Omer FENTON MD Unavailable Unavailable Omer FENTON MD Unavailable Unavailable Omer FENTON MD Unavailable Unavailable Omer FENTON MD Unavailable Unavailable Omer FENTON MD Unavailable Unavailable Omer FENTON MD Unavailable Unavailable Omer FENTON MD Unavailable Unavailable Omer FENTON MD Unavailable Unavailable Omer FENTON MD Unavailable Unavailable Omer FENTON MD Unavailable Unavailable Omer FENTON MD Unavailable Unavailable Omer FENTON MD Unavailable Unavailable Omer FENTON MD Unavailable Unavailable Omer FENTON MD Unavailable Unavailable Omer FENTON MD Unavailable Unavailable Omer FENTON MD Unavailable Unavailable Omer FENTON MD Unavailable Unavailable Omer FENTON MD Unavailable Unavailable Omer FENTON MD Unavailable Unavailable Omer FENTON MD Unavailable Unavailable Omer FENTON MD Unavailable Unavailable Omer FENTON MD Unavailable Unavailable Omer FENTON MD Unavailable Unavailable Omer FENTON MD Unavailable Unavailable Omer FENTON MD Unavailable Unavailable JOSSY, Omer CAMPBELL MD Unavailable Unavailable JOSSY, Omer CAMPBELL MD Unavailable Unavailable JOSSY, Omer CAMPBELL MD Unavailable Unavailable JOSSY, Omer CAMPBELL MD Unavailable Unavailable JOSSY, Omer CAMPBELL MD Unavailable Unavailable JOSSY, Omer CAMPBELL MD Unavailable Unavailable JOSSY, Omer CAMPBELL MD Unavailable Unavailable JOSSY, Omer CAMPBELL MD Unavailable Unavailable JOSSY, Omer CAMPBELL MD Unavailable Unavailable FENTNO, Omer CAMPBELL MD Unavailable Unavailable FENTON, Omer CAMPBELL MD Unavailable Unavailable FENTON, Omer CAMPBELL MD Unavailable Unavailable JOSSY, Omer CAMPBELL MD Unavailable Unavailable JOSSY, Omer CAMPBELL MD Unavailable Unavailable JOSSY, Omer CAMPBELL MD Unavailable Unavailable FENTON, Omer CAMPBELL MD Unavailable Unavailable FENTON, Omer CAMPBELL MD Unavailable Unavailable FENTON, Omer CAMPBELL MD Unavailable Unavailable FENTON, Omer CAMPBELL MD Unavailable Unavailable FENTON, Omer CAMPBELL MD Unavailable Unavailable FENTON, Omer CAMPBELL MD Unavailable Unavailable JOSSY, Omer CAMPBELL MD Unavailable Unavailable JOSSY, Omer CAMPBELL MD Unavailable Unavailable JOSSY, Omer CAMPBELL MD Unavailable Unavailable FENTON, Omer CAMPBELL MD Unavailable Unavailable Omer FENTON MD Unavailable Unavailable LETTIERE, A CANDY PA Unavailable Unavailable LETTIERE, A CANDY PA Unavailable Unavailable LETTIERE, A CANDY PA Unavailable Unavailable LETTIERE, A CANDY PA Unavailable Unavailable LETTIERE, A CANDY PA Unavailable Unavailable LETTIERE, A CANDY PA Unavailable Unavailable LETTIERE, A CANDY PA Unavailable Unavailable LETTIERE, A CANDY PA Unavailable Unavailable LETTIERE, A CANDY PA Unavailable Unavailable LETTIERE, A CANDY PA Unavailable Unavailable LETTIERE, A CANDY PA Unavailable Unavailable LETTIERE, A CANDY PA Unavailable Unavailable LETTIERE, A CANDY PA Unavailable Unavailable LETTIERE, A CANDY PA Unavailable Unavailable LETTIERE, A CANDY PA Unavailable Unavailable LETTIERE, A CANDY PA Unavailable Unavailable LETTIERE, A CANDY PA Unavailable Unavailable LETTIERE, A CANDY PA Unavailable Unavailable LETTIERE, A CANDY PA Unavailable Unavailable LETTIERE, A CANDY PA Unavailable Unavailable LETTIERE, A CANDY PA Unavailable Unavailable LETTIERE, A CANDY PA Unavailable Unavailable LETTIERE, A CADNY PA Unavailable Unavailable LETTIERE, A CANDY PA Unavailable Unavailable LETTIERE, A CANDY PA Unavailable Unavailable LETTIERE, A CANDY PA Unavailable Unavailable LETTIERE, A CANDY PA Unavailable Unavailable LETTIERE, A CANDY PA Unavailable Unavailable LETTIERE, A CANDY PA Unavailable Unavailable Re-disclosure Warning The records that you are about to access may contain information from federally-assisted alcohol or drug abuse programs. If such information is present, then the following federally mandated warning applies: This information has been disclosed to you from records protected by federal confidentiality rules (42 CFR part 2). The federal rules prohibit you from making any further disclosure of this information unless further disclosure is expressly permitted by the written consent of the person to whom it pertains or as otherwise permitted by 42 CFR part 2. A general authorization for the release of medical or other information is NOT sufficient for this purpose. The Federal rules restrict any use of the information to criminally investigate or prosecute any alcohol or drug abuse patient.The records that you are about to access may contain highly sensitive health information, the redisclosure of which is protected by Article 27-F of the [facility] Public Health law. If you continue you may have access to information: Regarding HIV / AIDS; Provided by facilities licensed or operated by the [facility] Office of Mental Health; or Provided by the [facility] Office for People With Developmental Disabilities. If such information is present, then the following [facility] mandated warning applies: This information has been disclosed to you from confidential records which are protected by state law. State law prohibits you from making any further disclosure of this information without the specific written consent of the person to whom it pertains, or as otherwise permitted by law. Any unauthorized further disclosure in violation of state law may result in a fine or residential sentence or both. A general authorization for the release of medical or other information is NOT sufficient authorization for further disc losure. Allergies and Adverse Reactions Type Description Substance Reaction Status Data Source(s ) Drug allergy Depakote Valproate SCRUGGS Active eCW1 ([facility]) Drug allergy Lyrica pregabalin Orbital pain, black dots Active eCW1 ([facility]) Drug allergy Amitriptyline HCl Amitriptyline Mouth sores Active eCW1 ([facility]) Drug allergy Magnesium Drug allergy mouth sores Active eCW1 ([facility]) Drug allergy Inderal Drug allergy Hives Active eCW1 ([facility]) Drug allergy Zinc Drug allergy Hives Active eCW1 ([facility]) Riboflavin Riboflavin Riboflavin Mouth sores Active eCW1 ([facility]) MRI Dye MRI Dye MRI Dye Anaphylaxis Active eCW1 ([facility]) Riboflavin Riboflavin Riboflavin Mouth sores Active eCW1 ([facility]) MRI Dye MRI Dye MRI Dye Anaphylaxis Active eCW1 ([facility]) Riboflavin Riboflavin Riboflavin Mouth sores Active eCW1 ([facility]) MRI Dye MRI Dye MRI Dye Anaphylaxis Active eCW1 ([facility]) Riboflavin Riboflavin Riboflavin Mouth sores Active eCW1 ([facility]) MRI Dye MRI Dye MRI Dye Anaphylaxis Active eCW1 ([facility]) Riboflavin Riboflavin Riboflavin Mouth sores Active eCW1 ([facility]) MRI Dye MRI Dye MRI Dye Anaphylaxis Active eCW1 ([facility]) Family History Family Member Name Family Member Gender Family Member Status Date o f Status Description Data Source(s) Unknown Male Problem MEDENT ([facility] ) Unknown Male Problem MEDENT ([facility] Unknown Unknown Problem MEDENT ([facility], ) Mother; Sister Unknown Unknown Problem MEDENT ([facility], ) Unknown Unknown Problem MEDENT ([facility], ) Unknown Unknown Problem MEDENT ([facility], ) Unknown Unknown Problem MEDENT ([facility], ) Unknown Unknown Problem MEDENT ([facility], ) Unknown Unknown Problem MEDENT ([facility], ) Unknown Unknown Problem MEDENT ([facility], ) Unknown Unknown Problem MEDENT ([facility] ) Unknown Unknown Problem MEDENT ([facility] ) Unknown Unknown Problem MED[facility] ([facility] ) Unknown Unknown Problem MEDENT ([facility] ) Unknown Unknown Problem MEDENT ([facility] ) Unknown Unknown Problem MEDENT ([facility] ) Unknown Unknown Problem MEDENT ([facility] ) Unknown Unknown Problem MEDENT ([facility], ) Unknown Unknown Problem MEDENT ([facility], ) Unknown Unknown Problem MEDENT ([facility], ) Unknown Unknown Problem MEDENT ([facility] ) Encounters Encounter Providers Location Date Indications Data Source(s ) Outpatient [id number] 10/26/2020 02:49:00 PM EST [facility] Outpatient Attender: SHANNAN FENTON MD ED-LAB 2020 12:39:00 PM EST - 10/26/2020 12:40:00 PM EST E119 [facility] E119 Patient discharged. (BHVHLTH) [facility] Scheduled Visit [address] [place] [address] 10/22/2020 12:00:00 AM EST eCW1 (Critical access hospital) TeleMedicine Phone E/M by Keagan 5-[address] [place] [phone] 10/21/2020 12:00:00 AM EST eCW1 (Critical access hospital) Outpatient Attender: CANDY maguire 10/19/2020 04:15:00 PM EST MEDENT ([facility]) Outpatient [address] [facility] [address] 10/19/2020 12:00:00 AM EST eCW1 [facility]) Outpatient [address] [facility] [address] 10/16/2020 12:00:00 AM EST eCW1 ([facility]) Unknown [address] [facility] [address] 10/16/2020 12:00:00 AM EST eCW1 ([facility]) Unknown [address] [facility] [address] 10/08/2020 12:00:00 AM EST eCW1 ([facility]) Unknown [address] [facility] [address] 10/07/2020 12:00:00 AM EST eCW1 ([facility]) Unknown [address] [facility] [address] 09/29/2020 12:00:00 AM EST eCW1 ([facility]) [facility] Scheduled Visit [address] [place] [address] 09/29/2020 12:00:00 AM EST eCW1 (Critical access hospital) ([facility]) [facility] Scheduled Visit [address] [place] [address] 09/17/2020 12:00:00 AM EST eCW1 (Critical access hospital) ([facility]) [facility] Scheduled Visit [address] [place] [address] 09/10/2020 12:00:00 AM EST eCW1 (Critical access hospital) Outpatient Attender: Denise Sharpe FNPReferrer: SHANNAN Rodriguez MD 09/07/2020 03:53:16 PM EST [facility] Outpatient Attender: Marcella Botello 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 [id number] 11/07/2019 12:00:00 AM EST [facility] Outpatient [address] [facility] [id number] 08/27/2020 12:00:00 AM EST eCW1 ([facility] Scheduled Visit [address] [place] [address] 08/27/2020 12:00:00 AM EST eCW1 (Critical access hospital) Outpatient [address] [facility] [address] 08/17/2020 12:00:00 AM EST eCW1 ([facility]) Unknown [address] [facility], [facility] [address] 08/11/2020 12:00:00 AM EST eCW1 ([facility]) Outpatient Attender: Denise Sharpe FNPReferrer: SHANNAN Rodriguez MD 08/07/2020 03:03:36 PM EDT [facility] Unknown [address] [facility] [address] 08/05/2020 12:00:00 AM EDT eCW1 ([facility]) Outpatient Attender: Denise Sharpe FNPReferrer: SHANNAN Rodriguez MD 07/07/2020 09:45:04 AM EDT [facility] Rec[facility] Patient Attender: Braydon Avitia FNPReferrer: Franco Arcos CASAC 07/07/2020 08:35:47 AM EDT [facility] Rec[facility] Patient Attender: Braydon Avitia FNPReferrer: Franco Arcos CASAC 07/07/2020 08:35:36 AM EDT [facility] Rec[facility] Patient Attender: Braydon Avitia FNPReferrer: [facility] Ar[facility] CASAC 07/06/2020 04:18:33 PM EDT [facility] Unknown [address] [facility] [address] 06/30/2020 12:00:00 AM EDT eCW1 ([facility]) Unknown [address] [facility] [address] 06/30/2020 12:00:00 AM EDT eCW1 ([facility]) Unknown [address] [facility] [address] 06/30/2020 12:00:00 AM EDT eCW1 ([facility]) Outpatient Attender: Tato CANELA [id number] 12:00:00 AM EDT - 06/04/2020 02:42:18 PM EDT [facility] Outpatient Attender: Che Castro NPReferrer: SHANNAN FENTON MD 05/18/2020 08:46:23 AM EDT [facility] Unknown [address] [facility] [address] 04/30/2020 12:00:00 AM EDT eCW1 ([facility]) Outpatient [address] [facility] [address] 04/22/2020 12:00:00 AM EDT eCW1 ([facility]) Outpatient Attender: JF DE LEON MD Main Office 04/21/2020 03:15:00 PM EDT MEDENT ([facility]) Outpatient Attender: Denise Sharpe FNPReferrer: SHANNAN Rodriguez MD 04/15/2020 08:56:30 AM EDT [facility] Rec[facility] Patient Attender: Braydon Avitia FNPReferrer: Franco Arcos SANDRA 04/14/2020 02:35:18 PM EDT [facility] Rec[facility] Patient Attender: Braydon Aguillonbrigettejanice FNPReferrer: Franco thompsonra Arcos EDILBERTOAC 04/14/2020 02:35:10 PM EDT [facility] [address] [facility] [address] 03/31/2020 12:00:00 AM EDT eCW1 ([facility]) Outpatient [address] [facility] [id number] 03/26/2020 12:00:00 AM EDT eCW1 ([facility]) Outpatient Attender: MAMIE POOL MDReferrer: Dawson POOL MD ES1-SJ.MRI 03/25/2020 09:49:00 AM EDT - 03/25/2020 11:59:00 PM EDT [facility] Patient discharged. Unknown [address] [facility] [address] 03/11/2020 12:00:00 AM EDT eCW1 ([facility]) [place] [address] [facility] [address] 03/11/2020 12:00:00 AM EDT eCW1 ([facility]) Outpatient Attender: Denise Sharpe FNPReferrer: SHANNAN Rodriguez MD 03/09/2020 03:27:39 PM EDT [facility] [address] [facility] [place] [address] 03/06/2020 12:00:00 AM EDT eCW1 ([facility]) Outpatient Attender: MAMIE POOL MD [id number] 09:46:25 AM EDT [facility] [address] [facility] [address] 02/18/2020 12:00:00 AM EDT eCW1 ([facility] [address] [facility] [address] 02/11/2020 12:00:00 AM EDT eCW1 ([facility] [address] [facility] [address] 02/11/2020 12:00:00 AM EDT eCW1 ([facility]) Outpatient Attender: Denise Sharpe FNPReferrer: SHANNAN Rodriguez MD 02/07/2020 06:19:27 PM EDT [facility] [address] [facility] [address] 02/05/2020 12:00:00 AM EDT eCW1 ([facility]) Outpatient Attender: Denise Sharpe FNPReferrer: SHANNAN Rodriguez MD 01/05/2020 08:22:19 PM EDT [facility] [address] [facility] [address] 12/24/2019 12:00:00 AM EDT eCW1 ([facility]) [facility] [address] [facility] [address] 12/18/2019 12:00:00 AM EDT eCW1 ([facility]) [facility] [address] [facility] [address] 12/18/2019 12:00:00 AM EDT eCW1 ([facility]) [facility] [address] [place] [address], [place] [address] 11/21/2019 12:00:00 AM EST eCW1 ([facility]) [facility] [address] [facility] [address] 11/19/2019 12:00:00 AM EST eCW1 ([facility]) [facility] [address] [facility] [address] 11/18/2019 12:00:00 AM EST eCW1 ([facility]) [facility] [address] [place] [address] 11/05/2019 12:00:00 AM EST eCW1 ([facility]) [facility] [address] [place] [address] 11/01/2019 12:00:00 AM EST eCW1 ([facility]) [address] [address] 10/29/2019 12:00:00 AM EST eCW1 ([facility]) Outpatient Attender: Denise Sharpe FNPReferrer: SHANNAN Rodriguez MD 10/24/2019 07:51:07 AM EST [facility] [address] [address] 10/24/2019 12:00:00 AM EST eCW1 ([facility]) [address] [address] 10/18/2019 12:00:00 AM EST [facility]CW1 [facility] Recurring Patient Attender: Braydon Avitia FNPReferrer: Franco FLORES 10/08/2019 02:30:30 PM EST [facility] [address] [address] 09/30/2019 12:00:00 AM EST eCW1 ([facility]) Outpatient Attender: Denise Sharpe FNPReferrer: Annabella FLORES 09/18/2019 08:47:24 AM EST [facility] Recurring Patient Attender: Braydon Avitia FNPReferrer: Franco FLORES 09/17/2019 10:04:00 AM EST [facility] Recurring Patient Attender: Brayodn Avitia FNPReferrer: Franco FLORES 09/17/2019 10:03:57 AM EST [facility] [address] [address] 09/11/2019 12:00:00 AM EST eCW1 ([facility]) [facility] [address] [facility] [address] 09/11/2019 12:00:00 AM EST eCW1 ([facility]) [facility] [address] [place] [address] 09/08/2019 12:00:00 AM EST eCW1 ([facility]) Outpatient Attender: ZAYNAB QUINTANA MDReferrer: MAMIE RIGGS MD [id number] 08/29/2019 10:12:22 AM EST - 08/29/2019 11:59:00 PM EST [facility] Patient discharged. Immunizations Vaccine Date Status Description Data Source(s) influenza, recombinant, quadrIvalent,injectable, prese rvative free 07/02/2020 11:50:00 AM EDT completed eCW1 ([facility]) influenza, recombinant, quadrIvalent,injectable, prese rvative free 07/02/2020 11:50:00 AM EDT completed eCW1 ([facility]) influenza, recombinant, quadrIvalent,injectable, prese rvative free 07/02/2020 11:50:00 AM EDT completed eCW1 ([facility]) influenza, recombinant, quadrIvalent,injectable, prese rvative free 07/02/2020 11:50:00 AM EDT completed eCW1 ([facility]) influenza, recombinant, quadrIvalent,injectable, prese rvative free 07/02/2020 11:50:00 AM EDT completed eCW1 ([facility]) influenza, recombinant, quadrIvalent,injectable, prese rvative free 07/02/2020 11:50:00 AM EDT completed eCW1 ([facility]) influenza, recombinant, quadrIvalent,injectable, prese rvative free 07/02/2020 11:50:00 AM EDT completed eCW1 ([facility]) influenza, recombinant, quadrIvalent,injectable, prese rvative free 07/02/2020 11:50:00 AM EDT completed eCW1 ([facility]) influenza, recombinant, quadrIvalent,injectable, prese rvative free 07/02/2020 11:50:00 AM EDT completed eCW1 ([facility]) influenza, recombinant, quadrIvalent,injectable, prese rvative free 07/02/2020 11:50:00 AM EDT completed eCW1 ([facility]) influenza, recombinant, quadrIvalent,injectable, prese rvative free 07/02/2020 11:50:00 AM EDT completed eCW1 ([facility]) influenza, recombinant, quadrIvalent,injectable, prese rvative free 07/02/2020 11:50:00 AM EDT completed eCW1 ([facility]) influenza, recombinant, quadrIvalent,injectable, prese rvative free 07/02/2020 11:50:00 AM EDT completed eCW1 ([facility]) influenza, recombinant, quadrIvalent,injectable, prese rvative free 07/02/2020 11:50:00 AM EDT completed eCW1 ([facility]) influenza, recombinant, quadrIvalent,injectable, prese rvative free 07/02/2020 11:50:00 AM EDT completed eCW1 ([facility]) influenza, recombinant, quadrIvalent,injectable, prese rvative free 07/02/2020 11:50:00 AM EDT completed eCW1 ([facility]) Medications Medication Brand Name Start Date Product Form Dose Route Admi nistrative Instructions Pharmacy Instructions Status Indications Reaction Description Data Source(s) 5-325 mg 10/20/2020 12:00:00 AM EST tablet 30 TAKE ONE TABLET BY MOUTH EVERY DAY NEEDED FOR PAIN MAXIMUM DAILY DOSE = 1 TAKE ONE TABLET BY MOUTH EVERY DAY NEEDED FOR PAIN MAXIMUM DAILY DOSE = 1 SOLD: 10/21/2020 [facility] cefdinir 300 MG Oral Capsule Cefdinir 10/19/2020 12:00:00 AM EST ORAL active MEDENT ([facility]) [place] 10/19/2020 12:00:00 AM EST active MEDENT ([facility]) Acetaminophen 325 MG / Hydrocodone Bitartrate 5 MG Oral Tabl et [[place]] [place] 10/19/2020 12:00:00 AM EST active MEDENT ([facility], [facility]) Prednisone 20 MG Oral Tablet Prednisone 10/19/2020 12:00:00 AM EST active MEDENT ([facility], [facility]) 200 ACTUAT Albuterol 0.09 MG/ACTUAT Mete red Dose Inhaler [ProAir] ProAir HFA 108 (90 Base) MCG/ACT ProAir HFA 108 (90 Base) MCG/ACT 10/16/2020 12:00:00 AM EST 1.0 {puff_as_needed} active Pro Air HFA 108 (90 Base) MCG/ACT eCW1 ([facility]) 200 ACTUAT Albuterol 0.09 MG/ACTUAT Mete red Dose Inhaler [ProAir] ProAir HFA 108 (90 Base) MCG/ACT ProAir HFA 108 (90 Base) MCG/ACT 10/16/2020 12:00:00 AM EST 1.0 {puff_as_needed} active Pro Air HFA 108 (90 Base) MCG/ACT eCW1 ([facility]) 200 ACTUAT Albuterol 0.09 MG/ACTUAT Mete red Dose Inhaler [ProAir] ProAir HFA 108 (90 Base) MCG/ACT ProAir HFA 108 (90 Base) MCG/ACT 10/16/2020 12:00:00 AM EST 1.0 {puff_as_needed} active Pro Air HFA 108 (90 Base) MCG/ACT eCW1 ([facility]) 200 ACTUAT Albuterol 0.09 MG/ACTUAT Mete red Dose Inhaler [ProAir] ProAir HFA 108 (90 Base) MCG/ACT ProAir HFA 108 (90 Base) MCG/ACT 10/16/2020 12:00:00 AM EST 1.0 {puff_as_needed} active Pro Air HFA 108 (90 Base) MCG/ACT eCW1 ([facility]) 200 ACTUAT Albuterol 0.09 MG/ACTUAT Mete red Dose Inhaler [ProAir] ProAir HFA 108 (90 Base) MCG/ACT ProAir HFA 108 (90 Base) MCG/ACT 10/16/2020 12:00:00 AM EST 1.0 {puff_as_needed} active Pro Air HFA 108 (90 Base) MCG/ACT eCW1 ([facility]) 30 mg 10/10/2020 12:00:00 AM EST capsule,delayed release (DR/EC) 30 TAKE ONE CAPSULE BY MOUTH EVERY DAY WITH 60 MG CAPSULE TAKE ONE CAPSULE BY MOUTH EVERY DAY WITH 60 MG CAPSULE SOLD: 10/12/2020 [facility] tizanidine 2 MG Oral Tablet TIZANIDINE HCL 10/05/2020 12:00:00 AM EST tablet 60 TAKE 1-2 TABLETS BY MOUTH AT BEDTIME NEEDED FOR SPA SM TAKE 1-2 TABLETS BY MOUTH AT BEDTIME NEEDED FOR SPASM SOLD: 10/12/2020 [facility] 50 mg 10/05/2020 12:00:00 AM EST tablet 30 TAKE ONE TABLET BY MOUTH AT BEDTIME TAKE ONE TABLET BY MOUTH AT BEDTIME SOLD: 10/12/2020 [facility] 5-325 mg 09/08/2020 12:00:00 AM EST tablet 30 TAKE ONE TABLET BY MOUTH EVERY DAY NEEDED FOR PAIN MAXIMUM DAILY DOSE = 1 TABLET TAKE ONE TABLET BY MOUTH EVERY DAY NEEDED FOR PAIN MAXIMUM DAILY DOSE = 1 TABLET SOLD: 09/13/2020 [facility] 30 mg 08/15/2020 12:00:00 AM EST capsule,delayed release (DR/EC) 30 TAKE ONE CAPSULE BY MOUTH EVERY DAY WITH 60 MG CAPSULE TAKE ONE CAPSULE BY MOUTH EVERY DAY WITH 60 MG CAPSULE SOLD: 08/17/2020 [facility] 30 mg 08/15/2020 12:00:00 AM EST capsule,delayed release (DR/EC) 30 TAKE ONE CAPSULE BY MOUTH EVERY DAY WITH 60 MG CAPSULE TAKE ONE CAPSULE BY MOUTH EVERY DAY WITH 60 MG CAPSULE SOLD: 09/20/2020 [facility] 5-325 mg 08/07/2020 12:00:00 AM EDT tablet 30 TAKE ONE TABLET BY MOUTH EVERY DAY NEEDED FOR PAIN MAXIMUM DAILY DOSE = 1 TAKE ONE TABLET BY MOUTH EVERY DAY NEEDED FOR PAIN MAXIMUM DAILY DOSE = 1 SOLD: 08/10/2020 [facility] 60 mg 07/13/2020 12:00:00 AM EDT capsule,delayed release (DR/EC) 30 TAKE ONE CAPSULE BY MOUTH EVERY DAY TAKE ONE CAPSULE BY MOUTH EVERY DAY SOLD: 07/18/2020 [facility] 60 mg 07/13/2020 12:00:00 AM EDT capsule,delayed release (DR/EC) 30 TAKE ONE CAPSULE BY MOUTH EVERY DAY TAKE ONE CAPSULE BY MOUTH EVERY DAY SOLD: 2020 [facility] 60 mg 07/13/2020 12:00:00 AM EDT capsule,delayed release (DR/EC) 30 TAKE ONE CAPSULE BY MOUTH EVERY DAY TAKE ONE CAPSULE BY MOUTH EVERY DAY SOLD: 09/30/2020 [facility] 5-325 mg 07/07/2020 12:00:00 AM EDT tablet 30 TAKE ONE TABLET BY MOUTH EVERY DAY NEEDED FOR PAIN MAXIMUM DAILY DOSE = 1 TAKE ONE TABLET BY MOUTH EVERY DAY NEEDED FOR PAIN MAXIMUM DAILY DOSE = 1 SOLD: 07/07/2020 [facility] 5-325 mg 06/02/2020 12:00:00 AM EDT tablet 30 TAKE ONE TABLET BY MOUTH DAILY NEEDED FOR PAIN MAXIMUM DAILY DOSE = 1 TAKE ONE TABLET BY MOUTH DAILY NEEDED FOR PAIN MAXIMUM DAILY DOSE = 1 SOLD: 06/07/2020 [facility] 1.5 ML Insulin Glargine 300 UNT/ML Pen I njector [Toujeo] TOUJEO SOLOSTAR 300 UNIT/ML SOPN TOUJEO SOLOSTAR 300 UNIT/ML SOPN 05/31/2020 12:00:00 AM EDT active INJECT 22 UNITS SUBCUTANE OUSLY ONCE DAILY [facility] Losartan Potassium 25 MG Oral Tablet losartan (COZAAR) 25 MG tablet losartan (COZAAR) 25 MG tablet 04/30/2020 12:00:00 AM EDT active TAKE 1 TABLET BY MOUTH ONCE DAILY FOR 30 DAYS [facility] Hydrocortisone 10 MG/ML / Neomycin 3.5 M G/ML / Polymyxin B 38177 UNT/ML Otic Suspension Ghrpefdp-Tujdgsclb-IP 3.5-73799-3 Ianypllh-Xooplmmui-OR 3.5-65225-9 04/22/2020 12:00:00 AM EDT active Smyzvgik-Rzomktqmm-IJ 3.5-28032-6 eCW1 ([facility]) Hydrocortisone 10 MG/ML / Neomycin 3.5 M G/ML / Polymyxin B 73006 UNT/ML Otic Suspension Itwxrytj-Gknswozjo-PM 3.5-34823-9 Rcvnxbra-Rqlbabwgt-ZQ 3.5-30432-3 04/22/2020 12:00:00 AM EDT active Rafdxraa-Sizatootu-QF 3.5-95421-0 eCW1 ([facility]) Hydrocortisone 10 MG/ML / Neomycin 3.5 M G/ML / Polymyxin B 07112 UNT/ML Otic Suspension Wnsedhjg-Redgkcvup-JR 3.5-95901-5 Icwvsqud-Bewfyexyx-UO 3.5-25620-9 04/22/2020 12:00:00 AM EDT active Lpfeqfuv-Kbhqflmja-LU 3.5-97569-3 eCW1 ([facility]) Hydrocortisone 10 MG/ML / Neomycin 3.5 M G/ML / Polymyxin B 03075 UNT/ML Otic Suspension Esbxmobd-Uhbmtedsd-OE 3.5-80035-4 Sdhonjha-Crmgofono-YJ 3.5-58610-2 04/22/2020 12:00:00 AM EDT active Snpylsrd-Qkqmmmfyr-OL 3.5-65173-7 eCW1 ([facility]) Hydrocortisone 10 MG/ML / Neomycin 3.5 M G/ML / Polymyxin B 27218 UNT/ML Otic Suspension Ztwdkivc-Unggiqyur-LK 3.5-38609-9 Pvdfhecq-Ydnwxkivf-NU 3.5-76027-6 04/22/2020 12:00:00 AM EDT active Bcazyajb-Zujbjpwff-OR 3.5-55567-3 eCW1 ([facility]) Hydrocortisone 10 MG/ML / Neomycin 3.5 M G/ML / Polymyxin B 34063 UNT/ML Otic Suspension Pvdkolyq-Ejkgzzhyo-ZA 3.5-01392-6 Ienbauev-Bkoshtuxd-OL 3.5-20428-6 04/22/2020 12:00:00 AM EDT active Mojjnkbt-Uerxiovwb-XP 3.5-80271-2 eCW1 ([facility]) Hydrocortisone 10 MG/ML / Neomycin 3.5 M G/ML / Polymyxin B 94247 UNT/ML Otic Suspension Cufxxgvy-Cxsuhocjx-IZ 3.5-70994-6 Kiuqwvhj-Hxxblbgvc-ZR 3.5-31623-5 04/22/2020 12:00:00 AM EDT active Qakppxgq-Ivcexrtyd-AY 3.5-87327-3 eCW1 ([facility]) Hydrocortisone 10 MG/ML / Neomycin 3.5 M G/ML / Polymyxin B 96740 UNT/ML Otic Suspension Dwbowzeh-Clhkutwrk-AT 3.5-13526-6 Znshbgsi-Atyqrrzuz-ZT 3.5-66418-3 04/22/2020 12:00:00 AM EDT active Jsuhnkeq-Gmuvavmjk-EF 3.5-98028-5 eCW1 ([facility]) Hydrocortisone 10 MG/ML / Neomycin 3.5 M G/ML / Polymyxin B 36508 UNT/ML Otic Suspension Azkaaobd-Vlvxnsijw-BJ 3.5-86752-8 Dczylzti-Gsuhsqskp-QT 3.5-85361-3 04/22/2020 12:00:00 AM EDT active Eaexedgt-Zbizspsqn-WD 3.5-78101-1 eCW1 ([facility]) Hydrocortisone 10 MG/ML / Neomycin 3.5 M G/ML / Polymyxin B 56989 UNT/ML Otic Suspension Jjnlhvso-Skmdhalor-SD 3.5-00836-1 Oabylqcz-Tkexnbffl-GD 3.5-83336-9 04/22/2020 12:00:00 AM EDT active Rlmqsfqa-Fzntybimb-YT 3.5-33409-3 eCW1 ([facility]) Hydrocortisone 10 MG/ML / Neomycin 3.5 M G/ML / Polymyxin B 01896 UNT/ML Otic Suspension Dwlfjmfm-Xcyfixfoc-GK 3.5-55054-4 Sfixajir-Hlcpfuovf-ZZ 3.5-25298-7 04/22/2020 12:00:00 AM EDT active Yqsfkakk-Nhufkufju-JA 3.5-66370-5 eCW1 ([facility]) Hydrocortisone 10 MG/ML / Neomycin 3.5 M G/ML / Polymyxin B 07942 UNT/ML Otic Suspension Bxajckyd-Piammfppv-HW 3.5-07549-0 Lawlprqe-Kywmppkjg-LA 3.5-25385-9 04/22/2020 12:00:00 AM EDT active Dsaqagff-Csjmwvdgg-AF 3.5-45505-8 eCW1 ([facility]) Hydrocortisone 10 MG/ML / Neomycin 3.5 M G/ML / Polymyxin B 18905 UNT/ML Otic Suspension Fsjqesir-Naxauxfpa-HP 3.5-96686-7 Qcgvkmlz-Omkjaqgfm-RW 3.5-01551-2 04/22/2020 12:00:00 AM EDT active Qsaollqu-Khszwcltq-JC 3.5-20936-4 eCW1 ([facility]) Hydrocortisone 10 MG/ML / Neomycin 3.5 M G/ML / Polymyxin B 29539 UNT/ML Otic Suspension Zrjpeynb-Xivmnlwfs-AR 3.5-15726-4 Zyjrbxyg-Mnohjwlcn-EI 3.5-57816-1 04/22/2020 12:00:00 AM EDT active Isuzepyl-Hovazdbol-SR 3.5-92806-4 eCW1 ([facility]) Hydrocortisone 10 MG/ML / Neomycin 3.5 M G/ML / Polymyxin B 30647 UNT/ML Otic Suspension Dvhubbhf-Qihxsyzdp-QJ 3.5-92361-3 Jljtvcyf-Iekygyzov-IU 3.5-72260-9 04/22/2020 12:00:00 AM EDT active Pkxxxhbf-Kkpvqrwog-JC 3.5-24625-3 eCW1 ([facility]) Hydrocortisone 10 MG/ML / Neomycin 3.5 M G/ML / Polymyxin B 66245 UNT/ML Otic Suspension Mlibvkkv-Jqcxjgrbb-WT 3.5-01748-2 Rjngrghu-Ljaeopuyj-WR 3.5-68320-1 04/22/2020 12:00:00 AM EDT active Cedvionx-Xdjdmrzmy-IP 3.5-50711-7 eCW1 ([facility]) Hydrocortisone 10 MG/ML / Neomycin 3.5 M G/ML / Polymyxin B 82856 UNT/ML Otic Suspension Pdgxmrje-Xzyfnabxm-ZT 3.5-22466-3 Prlesbqc-Qruthgcfn-HW 3.5-92258-8 04/22/2020 12:00:00 AM EDT active Sazllcsj-Yyesyqwcq-FE 3.5-68779-1 eCW1 ([facility]) Hydrocortisone 10 MG/ML / Neomycin 3.5 M G/ML / Polymyxin B 73508 UNT/ML Otic Suspension Hdtgryhy-Opafkfiwv-VD 3.5-03664-9 Oxhhnytv-Ehccerbwf-TJ 3.5-72162-4 04/22/2020 12:00:00 AM EDT active Azraypgi-Ydelwqqmn-NV 3.5-19190-3 eCW1 ([facility]) 5-325 mg 04/18/2020 12:00:00 AM EDT tablet 30 TAKE ONE TABLET BY MOUTH EVERY DAY NEEDED FOR PAIN MAXIMUM DAILY DOSE = 1 TAKE ONE TABLET BY MOUTH EVERY DAY NEEDED FOR PAIN MAXIMUM DAILY DOSE = 1 SOLD: 04/18/2020 [facility] Trazodone Hydrochloride 100 MG Oral Tablet traZODone ( DESYREL) 100 MG tablet traZODone (DESYREL) 100 MG tablet 04/17/2020 12:00:00 AM EDT active TAKE 1 TO 2 TABLETS BY MOUTH EVERY DAY AT BEDTIME FOR 90 DAYS [facility] 60 mg 04/15/2020 12:00:00 AM EDT capsule,delayed release (DR/EC) 30 TAKE ONE CAPSULE BY MOUTH EVERY DAY TAKE ONE CAPSULE BY MOUTH EVERY DAY SOLD: 05/18/2020 [facility] 60 mg 04/15/2020 12:00:00 AM EDT capsule,delayed release (DR/EC) 30 TAKE ONE CAPSULE BY MOUTH EVERY DAY TAKE ONE CAPSULE BY MOUTH EVERY DAY SOLD: 04/18/2020 [facility] 60 mg 04/15/2020 12:00:00 AM EDT capsule,delayed release (DR/EC) 30 TAKE ONE CAPSULE BY MOUTH EVERY DAY TAKE ONE CAPSULE BY MOUTH EVERY DAY SOLD: 06/21/2020 [facility] tizanidine 2 MG Oral Tablet TIZANIDINE HCL 03/31/2020 12:00:00 AM EDT tablet 60 TAKE 1-2 TABLETS BY MOUTH AT BEDTIME NEEDED FOR SPASM MAXIMUM DAILY DOSE = 2 TAKE 1-2 TABLETS BY MOUTH AT BEDTIME NEEDED FOR SPASM MAXIMUM DAILY DOSE = 2 SOLD: 08/05/2020 [facility] 2 mg 03/31/2020 12:00:00 AM EDT tablet 60 TAKE 1-2 TABLETS BY MOUTH AT BEDTIME NEEDED FOR SPASM MAXIMUM DAILY DOSE = 2 TAKE 1-2 TABLETS BY MOUTH AT BEDTIME NEEDED FOR SPASM MAXIMUM DAILY DOSE = 2 SOLD: 07/07/2020 [facility] 50 mg 03/31/2020 12:00:00 AM EDT tablet 30 TAKE ONE TABLET BY MOUTH AT BEDTIME MAXIMUM DAILY DOSE = 1 TAKE ONE TABLET BY MOUTH AT BEDTIME MAXI MUM DAILY DOSE = 1 SOLD: 06/02/2020 [facility] 50 mg 03/31/2020 12:00:00 AM EDT tablet 30 TAKE ONE TABLET BY MOUTH AT BEDTIME MAXIMUM DAILY DOSE = 1 TAKE ONE TABLET BY MOUTH AT BEDTIME MAXI MUM DAILY DOSE = 1 SOLD: 07/07/2020 [facility] 2 mg 03/31/2020 12:00:00 AM EDT tablet 60 TAKE 1-2 TABLETS BY MOUTH AT BEDTIME NEEDED FOR SPASM MAXIMUM DAILY DOSE = 2 TAKE 1-2 TABLETS BY MOUTH AT BEDTIME NEEDED FOR SPASM MAXIMUM DAILY DOSE = 2 SOLD: 05/04/2020 [facility] 50 mg 03/31/2020 12:00:00 AM EDT tablet 30 TAKE ONE TABLET BY MOUTH AT BEDTIME MAXIMUM DAILY DOSE = 1 TAKE ONE TABLET BY MOUTH AT BEDTIME MAXI MUM DAILY DOSE = 1 SOLD: 09/05/2020 [facility] 2 mg 03/31/2020 12:00:00 AM EDT tablet 60 TAKE 1-2 TABLETS BY MOUTH AT BEDTIME NEEDED FOR SPASM MAXIMUM DAILY DOSE = 2 TAKE 1-2 TABLETS BY MOUTH AT BEDTIME NEEDED FOR SPASM MAXIMUM DAILY DOSE = 2 SOLD: 06/02/2020 [facility] 50 mg 03/31/2020 12:00:00 AM EDT tablet 30 TAKE ONE TABLET BY MOUTH AT BEDTIME MAXIMUM DAILY DOSE = 1 TAKE ONE TABLET BY MOUTH AT BEDTIME MAXI MUM DAILY DOSE = 1 SOLD: 04/01/2020 [facility] 2 mg 03/31/2020 12:00:00 AM EDT tablet 60 TAKE 1-2 TABLETS BY MOUTH AT BEDTIME NEEDED FOR SPASM MAXIMUM DAILY DOSE = 2 TAKE 1-2 TABLETS BY MOUTH AT BEDTIME NEEDED FOR SPASM MAXIMUM DAILY DOSE = 2 SOLD: 04/01/2020 [facility] 50 mg 03/31/2020 12:00:00 AM EDT tablet 30 TAKE ONE TABLET BY MOUTH AT BEDTIME MAXIMUM DAILY DOSE = 1 TAKE ONE TABLET BY MOUTH AT BEDTIME MAXI MUM DAILY DOSE = 1 SOLD: 05/04/2020 [facility] 50 mg 03/31/2020 12:00:00 AM EDT tablet 30 TAKE ONE TABLET BY MOUTH AT BEDTIME MAXIMUM DAILY DOSE = 1 TAKE ONE TABLET BY MOUTH AT BEDTIME MAXI MUM DAILY DOSE = 1 SOLD: 08/05/2020 [facility] tizanidine 2 MG Oral Tablet TIZANIDINE HCL 03/31/2020 12:00:00 AM EDT tablet 60 TAKE 1-2 TABLETS BY MOUTH AT BEDTIME NEEDED FOR SPASM MAXIMUM DAILY DOSE = 2 TAKE 1-2 TABLETS BY MOUTH AT BEDTIME NEEDED FOR SPASM MAXIMUM DAILY DOSE = 2 SOLD: 09/05/2020 [facility] 5-325 mg 03/12/2020 12:00:00 AM EDT tablet 30 TAKE ONE TABLET BY MOUTH EVERY DAY NEEDED FOR PAIN MAXIMUM DAILY DOSE = 1 TAKE ONE TABLET BY MOUTH EVERY DAY NEEDED FOR PAIN MAXIMUM DAILY DOSE = 1 SOLD: 03/14/2020 [facility] Prednisone 10 MG Oral Tablet PredniSONE 10 MG PredniSONE 10 MG 03/11/2020 12:00:00 AM EDT 3.0 {tablets} suspended PredniSONE 10 MG eCW1 ([facility]) Prednisone 10 MG Oral Tablet PredniSONE 10 MG PredniSONE 10 MG 03/11/2020 12:00:00 AM EDT 3.0 {tablets} active P redniSONE 10 MG eCW1 ([facility]) Prednisone 10 MG Oral Tablet PredniSONE 10 MG PredniSONE 10 MG 03/11/2020 12:00:00 AM EDT 3.0 {tablets} suspended PredniSONE 10 MG eCW1 ([facility]) Prednisone 10 MG Oral Tablet PredniSONE 10 MG PredniSONE 10 MG 03/11/2020 12:00:00 AM EDT 3.0 {tablets} active P redniSONE 10 MG eCW1 ([facility]) Simvastatin 20 MG Oral Tablet simvastatin (ZOCOR) 20 M G tablet simvastatin (ZOCOR) 20 MG tablet 03/06/2020 12:00:00 AM EDT 20 mg Oral active Take 20 mg by mouth daily [facility] Losartan Potassium 25 MG Oral Tablet Losartan Potassium 25 M G 02/11/2020 12:00:00 AM EDT 1.0 {tablet} active Lo sartan Potassium 25 MG eCW1 ([facility]) Losartan Potassium 25 MG Oral Tablet Losartan Potassium 25 M G 02/11/2020 12:00:00 AM EDT 1.0 {tablet} active Lo sartan Potassium 25 MG eCW1 ([facility]) Losartan Potassium 25 MG Oral Tablet Losartan Potassium 25 M G 02/11/2020 12:00:00 AM EDT 1.0 {tablet} active Lo sartan Potassium 25 MG eCW1 ([facility]) Losartan Potassium 25 MG Oral Tablet Losartan Potassium 25 M G 02/11/2020 12:00:00 AM EDT active 1 tablet eCW1 ([facility]) Losartan Potassium 25 MG Oral Tablet Losartan Potassium 25 M G 02/11/2020 12:00:00 AM EDT 1.0 {tablet} active Lo sartan Potassium 25 MG eCW1 ([facility]) Losartan Potassium 25 MG Oral Tablet Losartan Potassium 25 M G 02/11/2020 12:00:00 AM EDT 1.0 {tablet} active Lo sartan Potassium 25 MG eCW1 ([facility]) Losartan Potassium 25 MG Oral Tablet Losartan Potassium 25 M G 02/11/2020 12:00:00 AM EDT 1.0 {tablet} active Lo sartan Potassium 25 MG eCW1 ([facility]) Losartan Potassium 25 MG Oral Tablet Losartan Potassium 25 M G 02/11/2020 12:00:00 AM EDT 1.0 {tablet} active Lo sartan Potassium 25 MG eCW1 ([facility]) Losartan Potassium 25 MG Oral Tablet Losartan Potassium 25 M G 02/11/2020 12:00:00 AM EDT active 1 tablet eCW1 ([facility]) Losartan Potassium 25 MG Oral Tablet Losartan Potassium 25 M G 02/11/2020 12:00:00 AM EDT 1.0 {tablet} active Lo sartan Potassium 25 MG eCW1 ([facility]) Losartan Potassium 25 MG Oral Tablet Losartan Potassium 25 M G 02/11/2020 12:00:00 AM EDT 1.0 {tablet} active Lo sartan Potassium 25 MG eCW1 ([facility]) 5-325 mg 01/03/2020 12:00:00 AM EDT tablet 30 TAKE ONE TABLET BY MOUTH ONCE DAILY NEEDED FOR PAIN MAXIMUM DAILY DOSE = 1 TAKE ONE TABLET BY MOUTH ONCE DAILY NEEDED FOR PAIN MAXIMUM DAILY DOSE = 1 SOLD: 01/04/2020 [facility] 5-325 mg 11/07/2019 12:00:00 AM EST tablet 30 TAKE ONE TABLET BY MOUTH ONCE DAILY NEEDED FOR PAIN MAXIMUM DAILY DOSE = 1 TABLET TAKE ONE TABLET BY MOUTH ONCE DAILY NEEDED FOR PAIN MAXIMUM DAILY DOSE = 1 TABLET SOLD: 11/20/2019 [facility] Test Strips - UNK 11/05/2019 12:00:00 AM EST acti ve Test Strips - eCW1 ([facility]) Test Strips - UNK 11/05/2019 12:00:00 AM EST acti ve Test Strips - eCW1 ([facility]) Test Strips - UNK 11/05/2019 12:00:00 AM EST acti ve Test Strips - eCW1 ([facility]) Test Strips - 11/05/2019 12:00:00 AM EST acti ve Test Strips - eCW1 ([facility]) Test Strips - [facility] 11/05/2019 12:00:00 AM EST acti ve Test Strips - eCW1 ([facility]) Test Strips - 11/05/2019 12:00:00 AM EST acti ve Test Strips - eCW1 ([facility]) Test Strips - 11/05/2019 12:00:00 AM EST acti ve Test Strips - eCW1 ([facility]) Test Strips - 11/05/2019 12:00:00 AM EST acti ve as directed eCW1 ([facility]) Test Strips - 11/05/2019 12:00:00 AM EST acti ve Test Strips - eCW1 ([facility]) Test Strips - 11/05/2019 12:00:00 AM EST acti ve Test Strips - eCW1 ([facility]) Test Strips - 11/05/2019 12:00:00 AM EST acti ve Test Strips - eCW1 ([facility]) Test Strips - 11/05/2019 12:00:00 AM EST acti ve Test Strips - eCW1 ([facility]) Test Strips - 11/05/2019 12:00:00 AM EST acti ve Test Strips - eCW1 ([facility]) Test Strips - 11/05/2019 12:00:00 AM EST acti ve Test Strips - eCW1 ([facility]) Test Strips - 11/05/2019 12:00:00 AM EST acti ve as directed eCW1 ([facility]) Test Strips - 11/05/2019 12:00:00 AM EST acti ve Test Strips - eCW1 ([facility]) Test Strips - 11/05/2019 12:00:00 AM EST acti ve Test Strips - eCW1 ([facility]) Test Strips - [facility] 11/05/2019 12:00:00 AM EST acti ve Test Strips - eCW1 ([facility]) Test Strips - K 11/05/2019 12:00:00 AM EST acti ve Test Strips - eCW1 ([facility]) Test Strips - [facility] 11/05/2019 12:00:00 AM EST acti ve Test Strips - eCW1 ([facility]) Test Strips - 11/05/2019 12:00:00 AM EST acti ve Test Strips - eCW1 ([facility]) Test Strips - 11/05/2019 12:00:00 AM EST acti ve Test Strips - eCW1 ([facility]) Test Strips - 11/05/2019 12:00:00 AM EST acti ve as directed eCW1 ([facility]) Test Strips - 11/05/2019 12:00:00 AM EST acti ve Test Strips - eCW1 ([facility]) Test Strips - 11/05/2019 12:00:00 AM EST acti ve as directed eCW1 ([facility]) Test Strips - 11/05/2019 12:00:00 AM EST acti ve Test Strips - eCW1 ([facility]) Test Strips - 11/05/2019 12:00:00 AM EST acti ve Test Strips - eCW1 ([facility]) Test Strips - 11/05/2019 12:00:00 AM EST acti ve as directed eCW1 ([facility]) Test Strips - 11/05/2019 12:00:00 AM EST acti ve as directed eCW1 ([facility]) Test Strips - 11/05/2019 12:00:00 AM EST acti ve Test Strips - eCW1 ([facility]) Test Strips - 11/05/2019 12:00:00 AM EST acti ve Test Strips - eCW1 ([facility]) doxycycline hyclate 100 MG Oral Capsule Doxycycline Hy clate 100 MG Doxycycline Hyclate 100 MG 10/18/2019 12:00:00 AM EST active 1 capsule eCW1 ([facility]) doxycycline hyclate 100 MG Oral Capsule Doxycycline Hy clate 100 MG Doxycycline Hyclate 100 MG 10/18/2019 12:00:00 AM EST 1.0 {capsule} suspended Doxycycline Hyclate 100 MG eCW1 ([facility]) doxycycline hyclate 100 MG Oral Capsule Doxycycline Hy clate 100 MG Doxycycline Hyclate 100 MG 10/18/2019 12:00:00 AM EST 1.0 {capsule} suspended Doxycycline Hyclate 100 MG eCW1 ([facility]) valacyclovir 1000 MG Oral Tablet [Valtrex] Valtrex 1 GM Valt deya 1 GM 10/18/2019 12:00:00 AM EST suspended 2 tab lets eCW1 ([facility]) doxycycline hyclate 100 MG Oral Capsule Doxycycline Hy clate 100 MG Doxycycline Hyclate 100 MG 10/18/2019 12:00:00 AM EST suspende d 1 capsule eCW1 ([facility]) valacyclovir 1000 MG Oral Tablet [Valtrex] Valtrex 1 GM Valt deya 1 GM 10/18/2019 12:00:00 AM EST 2.0 {tablets} suspended Valtrex 1 GM eCW1 ([facility]) valacyclovir 1000 MG Oral Tablet [Valtrex] Valtrex 1 GM Valt deya 1 GM 10/18/2019 12:00:00 AM EST suspended 2 tab lets eCW1 ([facility]) doxycycline hyclate 100 MG Oral Capsule Doxycycline Hy clate 100 MG Doxycycline Hyclate 100 MG 10/18/2019 12:00:00 AM EST suspende d 1 capsule eCW1 ([facility]) doxycycline hyclate 100 MG Oral Capsule Doxycycline Hy clate 100 MG Doxycycline Hyclate 100 MG 10/18/2019 12:00:00 AM EST 1.0 {capsule} suspended Doxycycline Hyclate 100 MG eCW1 ([facility]) valacyclovir 1000 MG Oral Tablet [Valtrex] Valtrex 1 GM Valt deya 1 GM 10/18/2019 12:00:00 AM EST 2.0 {tablets} suspended Valtrex 1 GM eCW1 ([facility]) doxycycline hyclate 100 MG Oral Capsule Doxycycline Hy clate 100 MG Doxycycline Hyclate 100 MG 10/18/2019 12:00:00 AM EST suspende d 1 capsule eCW1 ([facility]) doxycycline hyclate 100 MG Oral Capsule Doxycycline Hy clate 100 MG Doxycycline Hyclate 100 MG 10/18/2019 12:00:00 AM EST suspende d 1 capsule eCW1 ([facility]) valacyclovir 1000 MG Oral Tablet [Valtrex] Valtrex 1 GM Valt deya 1 GM 10/18/2019 12:00:00 AM EST suspended 2 tab lets eCW1 ([facility]) doxycycline hyclate 100 MG Oral Capsule Doxycycline Hy clate 100 MG Doxycycline Hyclate 100 MG 10/18/2019 12:00:00 AM EST 1.0 {capsule} suspended Doxycycline Hyclate 100 MG eCW1 ([facility]) doxycycline hyclate 100 MG Oral Capsule Doxycycline Hy clate 100 MG Doxycycline Hyclate 100 MG 10/18/2019 12:00:00 AM EST suspende d 1 capsule eCW1 ([facility]) valacyclovir 1000 MG Oral Tablet [Valtrex] Valtrex 1 GM Valt deya 1 GM 10/18/2019 12:00:00 AM EST active 2 tablet s eCW1 ([facility]) valacyclovir 1000 MG Oral Tablet [Valtrex] Valtrex 1 GM Valt deya 1 GM 10/18/2019 12:00:00 AM EST suspended 2 tab lets eCW1 ([facility]) valacyclovir 1000 MG Oral Tablet [Valtrex] Valtrex 1 GM Valt deya 1 GM 10/18/2019 12:00:00 AM EST suspended 2 tab lets eCW1 ([facility]) valacyclovir 1000 MG Oral Tablet [Valtrex] Valtrex 1 GM Valt deya 1 GM 10/18/2019 12:00:00 AM EST 2.0 {tablets} suspended Valtrex 1 GM eCW1 ([facility]) valacyclovir 1000 MG Oral Tablet [Valtrex] Valtrex 1 GM Valt deya 1 GM 10/18/2019 12:00:00 AM EST suspended 2 tab lets eCW1 ([facility]) valacyclovir 1000 MG Oral Tablet [Valtrex] Valtrex 1 GM Valt deya 1 GM 10/18/2019 12:00:00 AM EST 2.0 {tablets} suspended Valtrex 1 GM eCW1 ([facility]) doxycycline hyclate 100 MG Oral Capsule Doxycycline Hy clate 100 MG Doxycycline Hyclate 100 MG 10/18/2019 12:00:00 AM EST suspende d 1 capsule eCW1 ([facility]) 5-325 mg 10/03/2019 12:00:00 AM EST tablet 30 TAKE ONE TABLET BY MOUTH ONCE DAILY NEEDED FOR PAIN - MAXIMUM DAILY DOSE = ONE TABLET TAKE ONE TABLET BY MOUTH ONCE DAILY NEEDED FOR PAIN - MAXIMUM DAILY DOSE = ONE TABLET SOLD: 10/08/2019 [facility] 60 mg 09/18/2019 12:00:00 AM EST capsule,delayed release (DR/EC) 30 TAKE ONE CAPSULE BY MOUTH EVERY DAY TAKE ONE CAPSULE BY MOUTH EVERY DAY SOLD: 11/20/2019 [facility] 60 mg 09/18/2019 12:00:00 AM EST capsule,delayed release (DR/EC) 30 TAKE ONE CAPSULE BY MOUTH EVERY DAY TAKE ONE CAPSULE BY MOUTH EVERY DAY SOLD: 10/19/2019 [facility] 60 mg 09/18/2019 12:00:00 AM EST capsule,delayed release (DR/EC) 30 TAKE ONE CAPSULE BY MOUTH EVERY DAY TAKE ONE CAPSULE BY MOUTH EVERY DAY SOLD: 09/22/2019 [facility] 60 mg 09/18/2019 12:00:00 AM EST capsule,delayed release (DR/EC) 30 TAKE ONE CAPSULE BY MOUTH EVERY DAY TAKE ONE CAPSULE BY MOUTH EVERY DAY SOLD: 12/20/2019 [facility] 2 mg 09/17/2019 12:00:00 AM EST tablet 60 TAKE 1-2 TABLETS BY MOUTH AT BEDTIME NEEDED FOR SPASM MAXIMUM DAILY DOSE = TWO TABLETS TAKE 1-2 TABLETS BY MOUTH AT BEDTIME NEEDED FOR SPASM MAXIMUM DAILY DOSE = TWO TABLETS SOLD: 10/19/2019 [facility] 50 mg 09/17/2019 12:00:00 AM EST tablet 30 TAKE ONE TABLET BY MOUTH AT BEDTIME TAKE ONE TABLET BY MOUTH AT BEDTIME SOLD: 11/20/2019 [facility] 50 mg 09/17/2019 12:00:00 AM EST tablet 30 TAKE ONE TABLET BY MOUTH AT BEDTIME TAKE ONE TABLET BY MOUTH AT BEDTIME SOLD: 01/18/2020 [facility] 2 mg 09/17/2019 12:00:00 AM EST tablet 60 TAKE 1-2 TABLETS BY MOUTH AT BEDTIME NEEDED FOR SPASM MAXIMUM DAILY DOSE = TWO TABLETS TAKE 1-2 TABLETS BY MOUTH AT BEDTIME NEEDED FOR SPASM MAXIMUM DAILY DOSE = TWO TABLETS SOLD: 02/24/2020 [facility] 2 mg 09/17/2019 12:00:00 AM EST tablet 60 TAKE 1-2 TABLETS BY MOUTH AT BEDTIME NEEDED FOR SPASM MAXIMUM DAILY DOSE = TWO TABLETS TAKE 1-2 TABLETS BY MOUTH AT BEDTIME NEEDED FOR SPASM MAXIMUM DAILY DOSE = TWO TABLETS SOLD: 12/20/2019 [facility] 50 mg 09/17/2019 12:00:00 AM EST tablet 30 TAKE ONE TABLET BY MOUTH AT BEDTIME TAKE ONE TABLET BY MOUTH AT BEDTIME SOLD: 12/20/2019 [facility] 50 mg 09/17/2019 12:00:00 AM EST tablet 30 TAKE ONE TABLET BY MOUTH AT BEDTIME TAKE ONE TABLET BY MOUTH AT BEDTIME SOLD: 10/19/2019 [facility] 50 mg 09/17/2019 12:00:00 AM EST tablet 30 TAKE ONE TABLET BY MOUTH AT BEDTIME TAKE ONE TABLET BY MOUTH AT BEDTIME SOLD: 02/24/2020 [facility] 50 mg 09/17/2019 12:00:00 AM EST tablet 30 TAKE ONE TABLET BY MOUTH AT BEDTIME TAKE ONE TABLET BY MOUTH AT BEDTIME SOLD: 09/22/2019 [facility] 2 mg 09/17/2019 12:00:00 AM EST tablet 60 TAKE 1-2 TABLETS BY MOUTH AT BEDTIME NEEDED FOR SPASM MAXIMUM DAILY DOSE = TWO TABLETS TAKE 1-2 TABLETS BY MOUTH AT BEDTIME NEEDED FOR SPASM MAXIMUM DAILY DOSE = TWO TABLETS SOLD: 01/18/2020 [facility] 2 mg 09/17/2019 12:00:00 AM EST tablet 60 TAKE 1-2 TABLETS BY MOUTH AT BEDTIME NEEDED FOR SPASM MAXIMUM DAILY DOSE = TWO TABLETS TAKE 1-2 TABLETS BY MOUTH AT BEDTIME NEEDED FOR SPASM MAXIMUM DAILY DOSE = TWO TABLETS SOLD: 09/22/2019 [facility] 2 mg 09/17/2019 12:00:00 AM EST tablet 60 TAKE 1-2 TABLETS BY MOUTH AT BEDTIME NEEDED FOR SPASM MAXIMUM DAILY DOSE = TWO TABLETS TAKE 1-2 TABLETS BY MOUTH AT BEDTIME NEEDED FOR SPASM MAXIMUM DAILY DOSE = TWO TABLETS SOLD: 11/20/2019 [facility] 60 mg 08/08/2019 12:00:00 AM EDT capsule,delayed release (DR/EC) 30 TAKE ONE CAPSULE BY MOUTH EVERY DAY - MAXIMUM DAILY DOSE = 1 TAKE ONE CAPSULE BY MOUTH EVERY DAY - MAXIMUM DAILY DOSE = 1 SOLD: 10/08/2019 [facility] 60 mg 08/08/2019 12:00:00 AM EDT capsule,delayed release (DR/EC) 30 TAKE ONE CAPSULE BY MOUTH EVERY DAY - MAXIMUM DAILY DOSE = 1 TAKE ONE CAPSULE BY MOUTH EVERY DAY - MAXIMUM DAILY DOSE = 1 SOLD: 09/11/2019 [facility] 60 mg 08/08/2019 12:00:00 AM EDT capsule,delayed release (DR/EC) 30 TAKE ONE CAPSULE BY MOUTH EVERY DAY - MAXIMUM DAILY DOSE = 1 TAKE ONE CAPSULE BY MOUTH EVERY DAY - MAXIMUM DAILY DOSE = 1 SOLD: 03/14/2020 [facility] 2 mg 04/27/2019 12:00:00 AM EDT tablet 60 TAKE ONE TO TWO TABLETS BY MOUTH EVERY DAY AT BEDTIME NEEDED FOR SPASM TAKE ONE TO TWO TABLETS BY MOUTH EVERY DAY AT BEDTIME NEEDED FOR SPASM SOLD: 10/08/2019 [facility] 2 mg 04/27/2019 12:00:00 AM EDT tablet 60 TAKE ONE TO TWO TABLETS BY MOUTH EVERY DAY AT BEDTIME NEEDED FOR SPASM TAKE ONE TO TWO TABLETS BY MOUTH EVERY DAY AT BEDTIME NEEDED FOR SPASM SOLD: 08/30/2019 [facility] 50 mg 04/27/2019 12:00:00 AM EDT tablet 30 TAKE ONE TABLET BY MOUTH EVERY DAY AT BEDTIME TAKE ONE TABLET BY MOUTH EVERY DAY AT BEDTIME SOLD: 08/30/2019 [facility] 50 mg 04/27/2019 12:00:00 AM EDT tablet 30 TAKE ONE TABLET BY MOUTH EVERY DAY AT BEDTIME TAKE ONE TABLET BY MOUTH EVERY DAY AT BEDTIME SOLD: 10/08/2019 [facility] montelukast 10 MG Oral Tablet montelukast 10 mg oral t ablet montelukast 10 mg oral tablet 04/08/2019 02:50:53 PM EDT 0 completed montelukast [place] ([facility] Insurance Providers Payer name Policy type / Coverage type Policy ID Covered constitution party ID Covered constitution party's relationship to ruvalcaba Policy [place] Plan Information MEDICARE [id number] [facility] [id number] [id number] MEDICARE [id number] S [id number] UMR [id number] W [id number] SELF PAY ONLY [id number] SP [id number] UMR [id number] MEDICARE [id number] MEDICARE [id number] Gail [id number] UMR [id number] Spo [id number] Medicare C [id number] SELF [id number] UMR F [id number] SPOUSE [id number] UMR [id number] Spo [id number] MEDICARE [id number] Gail [id number] MEDICARE C [id number] S [id number] UMR O [id number] S [id number] MEDICARE [id number] Gail [id number] A Jailyn Koenig () Workers Compensation [id number] Self [id number] [place] (pr) Medigap Part B [id number] Family Dependent [id number] Umr (pr) Medigap Part B [id number] Family Dependent [id number] Medicare Dme Supplies Medigap Part B [id number] Self [id number] [place] [id number] Self [id number] ANSI-Commercial [id number] ANSI-Commercial [id number] ANSI-Medicare Part B [id number] Medicare Medigap Part B [id number] Self [id number] Umr Commercial [id number] Family Dependent [id number] [employer] [id number] [employer]. .[id number] [employer] [id number] Commercial Ins urance Co. [id number] Medicare [id number] Medicare Part B [id number] UMR [id number] Commercial Insur ance Co. [id number] ANSI-Commercial [id number] ANSI-Commercial [id number] ANSI-Medicare Part B [id number] ANSI-Commercial [id number] ANSI-Medicare Part B [id number] ANSI-Commercial [id number] ANSI-Commercial [id number] ANSI-Medicare Part B [id number] ANSI-Commercial [id number] ANSI-Commercial 898uf64q-l363-4i8v-425z-6393j472l3l9 895mp06p-t919-4d6m-122v-9217c435v3y3 ANSI-Commercial 67jgzi35-y0za-8l6m-15p1-353g70ilc9er 31wlpt76-a4yg-8g4y-39s2-098y35iof9dj ANSI-Medicare Part B [id number] Medicare Medigap Part B [id number] Self [id number] [id number] ANSI-Commercial [id number]-[id number]-j713-3q53-34ac-b63l59240335 ANSI-Medicare Part B [id number]-0443-7040-nw30-[id number] ANSI-Commercial wnb3s8cd-3394-49ia-l3cu-89l8bgu387wo awr2w5vj-1213-74ii-t4jh-85q7gbi871sa ANSI-Commercial v4w1oc10-69w4-5q71-zkkl-2215q413076i j0l1vh09-45l8-9i68-epmj-6450b584782u ANSI-Medicare Part B [id number]-[id number] xd614gz1-3s2y-2tl2-w632-y3025uqy4r84 ANSI-Commercial 23s00oi0-329j-0jix-6f79-dl694c6399oa 33c62ly2-431d-2iof-1u74-ye377h1966dm ANSI-Commercial pgp1990k-99h8-6bu7-v55w-96b94f56bmw8 qdu7620q-85b5-7or1-l37r-62l01d33tff3 ANSI-Medicare Part B [id number] 00784d2r-x8y8-9i87-jl6x-055u000376h2 ANSI-Commercial 1q4k76t1-a4q5-2910-047m-tk5r7959cbo4 0l7w25b4-m8h2-7542-518h-qs9b1340yzr3 ANSI-Medicare Part B [id number]-3302-d68s-85td95h53kru z697s7x5-144p-2492-b66b-17su42v07opd ANSI-Commercial ra964807-72u1-7209-s1q7-0q821qo70w54 ys714566-24n2-5611-f1w0-7j511wx31w60 ANSI-Commercial 79f8w983-m20l-3922-r8g5-1y77827o2mlv 02a1o507-j71j-6657-q8k7-3v92147a1cqd ANSI-Commercial 08303p50-3ae7-0r1m-r1u9-q321l3762741 86901w12-9fy1-1s2o-o9v5-r897o4411625 ANSI-Commercial 350619d9-azji-7f61-h94d-y3d85t3am458 830361z1-kkbq-8q38-y06p-z8z26g9xf028 ANSI-Medicare Part B [id number]-1924-54i4-5wa0s9p269m0 5br488t1-37sz-1195-18p1-4nx3o8s871q1 ANSI-Commercial 6077j016-ic46-07qf-1jxs-0g9y57409lsr 8234h754-jr79-77jc-6jcj-0x4f84499eqk ANSI-Commercial 2722q11j-um9l-7mck-4142-sv2o25259k1o 6433a76h-yz7p-1exr-1874-pj4y53471k2c ANSI-Medicare Part B [id number] Medicare C [id number] SELF [id number] UMR F [id number] SELF [id number] ANSI-Commercial 498008a7-5s4t-85m3-k8o7-132z39s9hb18 821475h1-4f6f-48t1-u4x6-969e26j2qt59 ANSI-Medicare Part B [id number] ANSI-Commercial [id number] Medicare Medigap Part B [id number] Self [id number] [id number] ANSI-Commercial [id number] ANSI-Medicare Part B [id number] ANSI-Commercial [id number] ANSI-Medicare Part B [id number] ANSI-Commercial [id number] ANSI-Commercial [id number]-[id number] a566g6z4-k87m-4rkv-[id number] ANSI-Commercial [id number]-[id number]-[id number] ANSI-Commercial [id number]-[id number] ANSI-Medicare Part B [id number] ANSI-Medicare Part B [id number] ANSI-Commercial [id number] ANSI-Commercial [id number]-9x7n4e22a4j8 ANSI-Commercial [id number] ANSI-Medicare Part B [id number] ANSI-Commercial [id number] ANSI-Medicare Part B [id number] ANSI-Commercial [id number]-quxu-[id number] ANSI-Commercial [id number]-[id number] [id number] [facility] [id number] [facility] [id number] ANSI-Medicare Part B [id number] ANSI-Commercial [id number] ANSI-Commercial [id number] MEDICARE [id number] A ANSI-Medicare Part B [id number] ANSI-Commercial [id number] [id number] ANSI-Commercial [id number] Umr Commercial [id number] Family Dependent Y1 [id number] [place] Medicare Primary [id number] Self [id number] MEDICARE C [id number] S [id number] A ANSI-Commercial [id number] ANSI-Medicare Part B [id number] ANSI-Commercial [id number] ANSI-Medicare Part B [id number] ANSI-Commercial [id number] ANSI-Commercial [id number] ANSI-Commercial [id number] ANSI-Medicare Part B [id number] ANSI-Commercial [id number] [employer] PPO O [id number] P [id number] [employer]OM[employer] [id number] HU2 [id number] HONYTRUST [id number] SP [id number] [employer]OMCO [id number] HU2 [id number] HONYTRUST O [id number] S [id number] HONYTRUST [id number] SP [id number] MEDICARE A [id number] Self [id number] A HONY TRUST SAFE WC W [id number] Empl [id number] POMCO U [id number] Spouse [id number] WORKER'S COMP [id number] Emp [id number] WORKER'S COMP PI PI Medicare [facility] Medicare Primary [id number] Self [id number] [employer] (HMO) [id number] Fa rita Dependent [id number] [employer] [id number] Spo [id number] MEDICARE [id number] Gail [id number] A WORKER'S COMP [id number] Emp OCM [id number] WORKER'S COMP PI PI WORKER'S COMP [id number] Emp [id number] [place] Medicare Primary Self [employer] (HMO) Fa rita Dependent [employer] [id number] SP [id number] MEDICARE -O/P [id number] 18 [id number] [employer] -O/P [id number] 01 [id number] [employer] PPO P [id number] P [id number] SELF PAY 2 UNAVAILABLE 1 UNAVAILA BLE CITIZEN [place] PROGRESSIVE 2 [id number] 9 [id number] SAFE HONEY TRUST 8 [id number] 1 2 [id number] [employer] - COMPENSATION [id number] 1 [id number] [employer] PPO 2 [id number] 2 [id number] [employer]-O/P [id number] 01 [id number] [employer]-I/P [id number] 01 [id number] MEDICARE PART A-O/P [id number] 18 [id number] Problems, Conditions, and Diagnoses Code Display Name Description Problem Type Effective Dates Data Source(s) F43.10 18668864 Post-traumatic stress disorder, unspecifi ed Problem 08/19/2020 12:00:00 AM EST eCW1 ([facility]) 259590847 Urticaria due to cold and heat Urticaria due to cold a nd heat Problem 04/21/2020 12:00:00 AM EDT MED[facility] ([facility] ) E66.01 [id number] Morbid obesity Problem 03/27/2020 12:00:00 A M EDT eCW1 ([facility]) N95.1 [id number] Perimenopause Problem 02/11/2020 12:00: 00 AM EDT eCW1 ([facility]) I10 50222102 Hypertension, unspecified type Problem 02/10 12:00:00 AM EDT eCW1 ([facility]) N95.1 [id number] Perimenopause Problem 02/11/2020 12:00: 00 AM EDT eCW1 ([facility]) I10 70235508 Hypertension, unspecified type Problem 02/10 12:00:00 AM EDT eCW1 ([facility]) G90.50 919781056 Reflex sympathetic dystrophy Problem 11/05/2019 12:00:00 AM EST eCW1 ([facility]) G90.50 615574195 Reflex sympathetic dystrophy Problem 11/05/2019 12:00:00 AM EST eCW1 ([facility]) M50.30 Other cervical disc degeneration, unspec ified cervical region Other cervical disc degeneration, unspec Diagnosis 09/07/2020 02:22:22 PM ES T [facility] M54.2 Cervicalgia Cervicalgia Diagnosis 06/04/2020 01:59:39 PM EDT [facility] 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 Diagnosis 03/25/2020 09:49:00 AM EDT [facility] Surgeries/Procedures Procedure Description Date Indications Data Source(s) MRI SPINAL CANAL CERVICAL W/O CONTRAST MATRL MRI CERVICAL S PINE WO CONTRAST Routine 03/25/2020 12:09 PM EDT Spinal cord tumor DDD (degenerative disc disease), cervical 03/25/2020 04:09:3 8 PM EDT DDD (degenerative disc disease), cervicalSpinal cord tumor [facility] DDD (degenerative disc disease), cervica l Spinal cord tumor MRI SPINAL CANAL THORACIC W/O CONTRAST MATRL MRI THORACIC S PINE WO CONTRAST Routine 03/25/2020 10:39 AM EDT Spinal cord tumor DDD (degenerative disc disease), cervical 03/25/2020 02:39:2 8 PM EDT DDD (degenerative disc disease), cervicalSpinal cord tumor [facility] DDD (degenerative disc disease), cervica l Spinal cord tumor [facility] MGMT SRVC 20 MIN 02/18/2020 12:00:00 AM EDT eCW1 ([facility]) Ccm add 20min 02/18/2020 12:00:00 AM EDT eCW1 ([facility]) Influenza A+B 10/18/2019 12:00:00 AM EST eCW1 ([facility]) CMPLX CHRON CARE W/O PT VSIT 09/30/2019 12:00:00 AM ES T eCW1 ([facility]) CMPLX CHRON CARE ADDL 30 MIN 09/30/2019 12:00:00 AM ES T eCW1 ([facility]) STREP A ASSAY W/OPTIC 09/08/2019 12:00:00 AM EST eCW1 ([facility]) Results ID Date Data Source [id number] 10/26/2020 07:17:00 PM [facility] Name Value Range Interpretation Code Description Data Melissa rce(s) Supporting Document(s) UMALB Urine Creatinine result Normal (applies t o non-numeric results) [facility] Interpret with care as there is no estab lished reference range associated with this assay's methodology that pertains to this particular sex and/or age. UMALB Microalbumin,Ur result <1.7 [facility] UMALB Alb/Cre Ratio,Ur result Normal (applies t o non-numeric results) [facility] Test Performed By: [facility] [address] [place] [address] Director: Cameron Corona MD Reference Ranges for Microalbumin,spot: Normal <30 ug/mg creatinine Microalbuminuria 30-300 ug/mg creatinine Clinical Albuminuria >300 ug/mg creatinine ID Date Data Source [id number] 10/26/2020 02:27:00 PM [facility] Name Value Range Interpretation Code Description Data Melissa rce(s) Supporting Document(s) Hemoglobin A1c 4.4-6.2 Above high normal [facility] Estimated Avg Glucose 192 mg/dL 126-240 Normal (applies to non-numeric results) [facility] ID Date Data Source [id number] 10/26/2020 02:27:00 PM [facility] Name Value Range Interpretation Code Description Data [facility] rce(s) Supporting Document(s) Sodium 137 mmol/L 136-145 Normal (applies to non-numeric resul ts) [facility] Potassium 3.5-5.1 Normal (applies to non-numeric resul ts) [facility] Chloride 101 mmol/L 98-107 Normal (applies to non-numeric resul ts) [facility] Carbon Dioxide CO2 21-32 Normal (applies to non-numer ic results) [facility] Anion Gap 5.0-16.0 Normal (applies to non-numeric resul ts) [facility] BUN 10 mg/dL 7-18 Normal (applies to non-numeric results) [facility] Creatinine,Serum 0.7-1.2 Normal (applies to non-numeric results) [facility] GFR >60 Normal (applies to non-numeric results) [facility] Glucose Level 297 mg/dL 60-99 Above high normal [facility] Reference range is only applicable when patient is fasting Note the following drug interference: Sulfasalazine Sulfapyridine Can see falsely depressed Can see falsely elevated result with up to 17% results with up to 11% decrease in measurement increase in measurement Recommend patients be collected for this test prior to administration of either drug. Calcium 8.5-10.1 Normal (applies to non-numeric resul ts) [facility] Bilirubin,Total 0.1-1.9 Normal (applies to non-numeric results) [facility] SGOT(AST) 14 U/L 15-37 Below low normal [facility] kathrine Note the following drug interference: Sulfasalazine Sulfapyridine Can see falsely depressed Can see falsely elevated result with up to 10% results with up to 10% decrease in measurement increase in measurement Recommend patients be collected for this test prior to administration of either drug. SGPT(ALT) 25 U/L 12-78 Normal (applies to non-numeric resul ts) [facility] Note the following drug interference: Sulfasalazine Sulfapyridine Can see falsely depressed Can see falsely elevated result with up to 29% results with up to 10% decrease in measurement increase in measurement Recommend patients be collected for this test prior to administration of either drug. Alkaline Phosphatase 154 U/L 38-126 Above high normal [facility] can increase Alkaline Phosp le vels up to 2 times the normal adult value. Normal values for children and adolescents are 2 to 3 times the normal adult value. Total Protein 6.0-8.2 Normal (applies to non-numeric re sults) [facility] Albumin Level 3.4-5.0 Normal (applies to non-numeric re sults) [facility] ID Date Data Source [id number] 10/26/2020 02:27:00 PM EST [facility] Name Value Range Interpretation Code Description Data Melissa rce(s) Supporting Document(s) Triglycerides 190 mg/dL <150 Above high normal [facility] Cholesterol 155 mg/dL 100-200 Normal (applies to non-numeric resu lts) [facility] LDL Cholesterol Calculated 77 0-130 Normal (applies to n on-numeric results) [facility] HDL Cholesterol 40 mg/dL 40-60 Normal (applies to non-numeric results) [facility] Cholesterol/HDL Ratio 3.6-6.7 Normal (applies to non-nu meric results) [facility] ID Date Data Source [id number] 10/26/2020 01:21:00 PM EST [facility] Name Value Range Interpretation Code Description Data Melissa rce(s) Supporting Document(s) White Blood Count 3.5-10.5 Normal (applies to non-numeri c results) [facility] Red Blood Count 3.90-5.00 Normal (applies to non-numeric results) [facility] Hemoglobin 12.0-15.5 Normal (applies to non-numeric resul ts) [facility] Hematocrit 34.9-44.5 Normal (applies to non-numeric resul ts) [facility] Mean Corpuscular Volume 81.2-95.1 Normal (applies to non- numeric results) [facility] Mean Corpuscular Hgb 25.6-32.2 Normal (applies to non-num judy results) [facility] Mean Corpuscular Hgb Conc 32.0-36.0 Normal (applies to no n-numeric results) [facility] Red Cell Distribution Width 11.9-15.5 Normal (appli es to non-numeric results) [facility] Platelet Count 337 x10 3/uL 150-450 Normal (applies to non-numeric results) [facility] Mean Platelet Volume 9.4-12.4 Normal (applies to non-num judy results) [facility] Neutrophils% (Auto) 31.0-71.0 Normal (applies to non-nume renae results) [facility] Lymphocytes% (Auto) 20.0-55.0 Normal (applies to non-nume renae results) [facility] Monocytes% (Auto) 4.0-12.0 Normal (applies to non-numeri c results) [facility] Eosinophils% (Auto) 1.0-8.0 Normal (applies to non-nume renae results) [facility] Basophils% (Auto) 0.0-2.0 Normal (applies to non-numeri c results) [facility] Immature Granulocytes% (Auto) 0.0-2.0 Normal (syed lies to non-numeric results) [facility] Neutrophils# (Auto) 1.50-6.20 Above high normal [facility] Lymphocytes# (Auto) 1.20-4.00 Normal (applies to non-nume renae results) [facility] Monocytes# (Auto) 0.00-0.90 Normal (applies to non-numeri c results) [facility] Eosinophils# (Auto) 0.00-0.50 Normal (applies to non-nume renae results) [facility] Basophils# (Auto) 0.00-0.20 Normal (applies to non-numeri c results) [facility] Immature Granulocytes# (Auto) 0.00-7.00 No rmal (applies to non-numeric results) [facility] ID Date Data Source [id number] 10/19/2020 12:00:00 AM EST [facility] Name Value Range Interpretation Code Description Data Melissa rce(s) Supporting Document(s) SARS coronavirus 2 Ag Negative [facility] This lab was ordered by [facility] and reported by [facility]. ID Date Data Source [id number] 10/10/2020 12:00:00 AM EST [facility] Name Value Range Interpretation Code Description Data Melissa rce(s) Supporting Document(s) SARS coronavirus 2 RNA [Presence] in Res piratory specimen by ALIA with probe detection NEGATIVE [facility] This lab was ordered by [facility] and reported by [facility]. ID Date Data Source [id number] 10/10/2020 12:00:00 AM EST [facility] Name Value Range Interpretation Code Description Data Melissa rce(s) Supporting Document(s) Carestart Rapid COVID Antigen Test [facility] This lab was [facility] by [facility]. 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 Patient was asked and denies being seen by any Physicians since their last visit. The patient was last seen by a [facility] provider on 08/07/2020. At today's visit patient presents with their Self Implanted Devices The patient has the following implanted device(s): . The patient has a glucose monitoring device. Patient is not currently working. The patient is being seen for a workers compensation follow-up. The workers compensation date of injury is 03/09/2004. Pain Quality: (Neuropathic) burning, numbness, shooting, tingling and pain changes with weather Pain Quality: (Nociceptive) aching, pressure and tooth-ache like Timing: constant Progression: unchanged Palliation: heat, resting/laying down and hydrocodone, topiramate, tizanidine Exacerbating: weather and Being on leg Pain Score: a current pain level of 5/10, a minimum pain level of 2/10 and a maximum pain level of 10/10. Condition type: The patient is being seen for a chronic condition. INJURY SETTING: at work. INJURY MECHANISM: The injury resulted from trauma. PAIN LOCATION: (left leg ). REVIEW OF PAST DIAGNOSTICS: have included: MRI, x-rays, electromyography/nerve conduction studies and spinal cord stimulator . Records were obtained, reviewed and on file. PAST TREATMENT has included: ANTICONVULSANTS (effective) Includes Topamax., ANTIDEPRESSANTS (effective) Includes Cymbalta . helps pain at least 75%., MUSCLE RELAXANTS (effective) Includes Tizanidine . helps at least 50%., OPIOID ANALGESICS (effective) Includes Hydrocodone . uses sparingly, helps sleep 60%. The trialing of opioid therapy has resulted in: at least a 30% reduction in the patient's VAS score (3pts). Improvement in function as evidence by: increase in ADL's INTERVAL EVENTS: include . She is tolerating the increased dose of Duloxetine. She is now seeing a counselor. ASSOCIATED SYMPTOMS: include difficulty walking and extremity weakness: , but no fecal incontinence and no urinary incontinence. FUNCTIONAL LIMITATIONS: The patient's functional status is limited as follows: ability to work. MEDICATION SIDE EFFECTS experienced by patient are: no known medication side effects. Review of SystemsConstitutional: Normal. Eyes: Normal. ENT: normal. Cardiovascular: Normal. Respiratory: Normal. Gastrointestinal: Normal. Genitourinary: Normal. Musculoskeletal: limb pain. Integumentary: Normal. Neurological: Normal. Psychiatric: Normal. Endocrine: Normal. Hematologic/Lymphatic: Normal. Patient maintains at today's visit there has been no change in his/her hematologic history. I reviewed the above with the patient and I feel the ROS to be negative/normal other than musculoskeletal. Active Problems 1. Acute thoracic back pain (724.1) (M54.6) 2. 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 Complex regional pain syndrome type 1 of left lower extremity (337.22) (G90.522) 4. CRPS (complex regional pain syndrome) (355.9) 5. CRPS (complex regional pain syndrome), lower limb (337.22) (G90.529) 6. Encounter for long-term (current) use of medications (V58.69) (Z79.899) 7. Leg pain, diffuse, left (729.5) (M79.605) 8. prison (current) use of opiate analgesic (V58.69) (Z79.891) 9. prison current use of opiate analgesic (V58.69) (Z79.891) 10. Lumbar radiculitis (724.4) (M54.16) 11. Other chronic pain (338.29) (G89.29) 12. Pain in unspecified limb (729.5) (M79.609) 13. Reflex sympathetic dystrophy of lower extremity (337.22) (G90.529) Allergies Iodinated Contrast Media Hives; Shortness of breath;; Updated By: Hannah Costa; 04/03/2012 11:46:50 AM Sulfa Drugs Hives;; Updated By: Hannah Costa; 04/03/2012 11:46:50 AM Amitriptyline HCl TABS mouth sores; Updated By: Hannah Costa; 04/03/2012 11:46:50 AM Amoxicillin TABS Rash; Recorded By: Valorie Ramírez; 03/09/2015 12:57:40 PM Depakote Headache; Recorded By: Valorie Ramírez; 03/09/2015 12:57:40 PM Inderal unknown; Recorded By: Valorie Ramírez; 03/09/2015 12:57:40 PM Lyrica CAPS black spots/eye pain; Updated By: Hannah Costa; 04/03/2012 11:46:50 AM Neurontin TABS mouth sores; Updated By: Hannah Costa; 04/03/2012 11:46:50 AM riboflavin mouth sores; Recorded By: Valorie Ramírez; 03/09/2015 12:57:40 PM Zinc Rash; Recorded By: Sheridan Carrero; 07/06/2020 2:27:26 PM gabapentin Recorded By: Vick Cantu; 07/21/2017 12:50:25 PM Adhesive Tape Updated By: Hannah Costa; 04/03/2012 11:46:50 AM Latex Updated By: Hannah Costa; 04/03/2012 11:46:50 AM Current Meds Bydureon 2 MG Subcutaneous Pen-injector;Therapy: 16Ojb5849 to Recorded DULoxetine HCl - 30 MG Oral Capsule Delayed Release Particles; TAKE 1 CAPSULEDAILY along with the 60 mg capsule for TDD to be 90 mg MDD:1;Therapy: 96Ryd3546 to (Evaluate:05Nov2020) Requested for: 33Miw0357; LastRx:[id number] Ordered DULoxetine HCl - 60 MG Oral Capsule Delayed Release Particles; TAKE 1 CAPSULEDAILY. MDD:1;Therapy: 22Dec2011 to (Evaluate:03Nov2020) Requested for: 42Hjj5160; LastRx:00Aoh1935 Ordered Fluticasone Propionate 50 MCG/ACT Nasal Suspension;Therapy: 21Seg3788 to Recorded HYDROcodone-Acetaminophen 5-325 MG Oral Tablet; one po daily prn pain MDD:1;Therapy: 81Ocu4751 to (Evaluate:77Qyy4359) Requested for: 20Rxs6514; LastRx:[id number] OrderedLD 09/06/2020 hydrOXYzine HCl - 25 MG Oral Tablet; Take 3 at bedtime;Therapy: 59Mfe1785 to Recorded Levocetirizine Dihydrochloride 5 MG Oral Tablet;Therapy: (Recorded:75Toe0872) to Recorded Losartan Potassium 25 MG Oral Tablet;Therapy: 01Goy7021 to Recorded metFORMIN HCl - 1000 MG Oral Tablet;Therapy: 02Jan2013 to Recorded Montelukast Sodium 10 MG Oral Tablet;Therapy: 79Hni3543 to Recorded Multi Vitamin/Minerals TABS;Therapy: (Recorded:00Rkr7528) to Recorded PriLOSEC 40 MG CPDR;Therapy: (Recorded:70Kca8639) to Recorded Simvastatin 40 MG Oral Tablet;Therapy: (Recorded:95Fwo0772) to Recorded tiZANidine HCl - 2 MG Oral Tablet; TAKE 1-2 TABLETS AT HS NEEDED FOR SPASMMDD:2;Therapy: 05Ejp4856 to (Evaluate:37Qnn4968) Requested for: 24Mar2020; LastRx:24Mar2020 Ordered Topiramate 50 MG Oral Tablet; ONE PO EVERY HS MDD:1;Therapy: 22Dec2011 to (Evaluate:69Whh2372) Requested for: 24Mar2020; LastRx:24Mar2020 Ordered Touchai SoloStar 300 UNIT/ML Subcutaneous Solution Pen-injector;Therapy: 27Dec2017 to RecordedFormulary Override Reason: No Formulary Equivalent Exists traZODone HCl - 100 MG Oral Tablet;Therapy: 42Syq5905 to Recorded Vitamin C TABS;Therapy: (Recorded:81Kuy3897) to Recorded ZyrTEC Allergy 10 MG Oral Tablet;Therapy: 35Bfc4399 to Recorded Past Medical History Denied: History of Currently Denied: History of Depression Denied: History of blood coagulation disorder History of diabetes mellitus (V12.29) (Z86.39) History of Reflex sympathetic dystrophy of lower extremity (337.22) (G90.529) History of Sinus Tachycardia (427.89) Denied: History of Taking Blood Thinners Surgical History History of Foot Surgery History of Gastric Surgery For Morbid Obesity Bypass With Caitlin-en-Y Denied: History of Implantable Cardioverter-Defibrillator History of Neck Surgery fusion History of Neuroplasty Decompression Median Nerve At Carpal Tunnel History of Neuroplasty Of Ulnar Nerve Left Hand Denied: History of Permanent Pacemaker Type History of Tonsillectomy History of Wrist Surgery Family History Family history of Arthritis (V17.7) Family history of Cancer Family history of Diabetes Mellitus (V18.0) Family history of Hypertension (V17.49) Family history of Cancer Family history of Diabetes Mellitus (V18.0) Family history of Heart Disease (V17.49) Family history of Hypertension (V17.49) Family history of Hypertension (V17.49) Family history of Hypertension (V17.49) Family history of Cancer Family history of Diabetes Mellitus (V18.0) Family history of Cancer Family history of Diabetes Mellitus (V18.0) Family history of Arthritis (V17.7) Family history of Cancer Family history of Diabetes Mellitus (V18.0) Family history of Heart Disease (V17.49) Family history of Hypertension (V17.49) Social History Current non-drinker of alcohol (V49.89) (Z78.9) [id number] Denied: History of Drug Use Former smoker (V15.82) (Z87.891) Marital History - Currently Not Currently Employed VitalsVital Signs Recorded: 07Sep2020 01:17PM Height: 5 ft 5 inWeight: 236 lb BMI Calculated: 39.27BSA Calculated: 2.12Systolic: 148, SittingDiastolic: 84, SittingHeart Rate: 80Respiration: 16Temperature: 96.9 FHeight measured w/wo shoes: w/shoesPain Scale: 5 Physical ExamGeneral: The patient is a well nourished/well developed, female, who is obese, who is in no acute distress and appears stated age. Eyes: Lids are atraumatic, no lesions, sclerae are anicteric. Ears, Nose, Mouth, Throat: Patient wearing a mask due to COVID-19. Respiratory: Normal chest expansion and respiratory effort. Gait and Station: Gait was antalgic. Skin: Warm, dry, acyanotic. Psychological: Alert and oriented to person, place and time. Mood and affect are pleasant and appropriate. Judgement intact. Insight normal without delusions or hallucinations. Denies suicidal/homicidal ideation. Results/DataThis patient had a urine drug screen on 08/07/2020. Results are in compliance. Assessment 1. CRPS (complex regional pain syndrome), lower limb (337.22) (G90.529) 2. 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 Other chronic pain (338.29) (G89.29) 4. Leg pain, diffuse, left (729.5) (M79.605) Plan 1. Renew: HYDROcodone-Acetaminophen 5-325 MG Oral Tablet ([place]); one po daily prn pain MDD:1LD 09/06/2020 2. Renew: tiZANidine HCl - 2 MG Oral Tablet; TAKE 1-2 TABLETS AT HS NEEDED FOR SPASM M DD:2 3. Renew: Topiramate 50 MG Oral Tablet; ONE PO EVERY HS MDD:1 4. Other Supply; Status:Complete; Done: [id number] Aide 3-4 times a week to assist with ADL's, house chores, cooking and promoting safety to prevent falling and further injuries.Request Type : Variance 5. 30 Day RX Management Follow-up Status: Hold For - Scheduling Requested for: 07Sep2020). Schedule (FUP) 60 days from today: : 06Nov2020). Is an additional appointment needed....? : Yes). Schedule 30 day RX from TODAY's date (2 days +/- either way): : 07Oct2020 In my opinion based on subjective and objective findings from today's visit the patient is status quo. Medication:. Medication list was reviewed with the patient, and updates were made to reflect her current medication regimen. Allergy list was reviewed with patient, and any necessary changes were made. [facility] ELECTRICAL ENGINEER MEP Information: ELECTRICAL ENGINEER MEP was consulted by my designee and I have reviewed the information presented to me and find no aberrant compliance issues. Patient has been informed. General Medications Prescribed: TIZANIDINE, TOPIRAMATE . GENERAL MEDICATIONS: I advised the patient today/previously regarding treatment with the above medication(s). The risks, benefits, common side effects and alternative treatments were discussed with the patient. The provider verbalized with the patient. The patient verbalized understanding and was told to call if there were any untoward effects. Controlled Substance Prescribed: HYDROCODONE . CONTROLLED SUBSTANCE INFORMATION: I advised the patient today/previously regarding treatment with the above controlled substance and/or narcotic. The patient was then informed of the risks, benefits, and alternatives of the narcotic. The risks discussed included but were not limited to physical and/or psychological dependence, tolerance of the medication, drowsiness, sleepiness, balance/coordination problems, confusion, allergic reaction or any other abnormal symptoms. The patient was advised and agreed to use the medication only as prescribed, and not to drive, or operate heavy equipment or machinery. The patient understood and consented to both undergo a narcotic/opiate regimen and agreed to sign and comply with all of the [facility] terms of a controlled substance treatment and agreement.Antidepressants Prescribed: DULOXETINE . ANTI-DEPRESSANT: I advised the patient today/previously regarding treatment with the above antidepressant(s). Patient is aware of rare but serious risk of potential suicidal thoughts, worsening depression, and/or serotonin syndrome. Patient agrees to discontinue medication and to contact [facility], friend(s) or family member(s), and/or 1 if this occurs. The patient is on the lowest possible dose of opioids. The patient denies adverse side effects and does not demonstrate any aberrant drug taking behaviors. The patient is able to perform ADL's including the following activities for longer periods of time with less pain: activities of daily living, sleeping, walking, standing, sitting, grocery shopping . There are no changes in current medications at this visit. Patient instructed to continue current regimen. The prescribed medications are medically necessary for pain management and rehabilitation. Treatment includes: PROCEDURE(S): The patient defers blocks/procedures at this time FOLLOW UP: The patient should have a follow up visit in 2 months. The patient should have a follow up 30 Day RX. CONTINUE TREATMENT: Jena will continue with the following: Psychiatric treatment or Counseling . Patient will follow up with their PCP. Jena is participating in a home exercise program and is encouraged to continue. Miscellaneous: - WEIGHT LOSS: Weight loss was discussed and encouraged. PHQ-9 (Denies suicidal ideation) - FRONT OFFICE ADMINISTRATOR: The patient was counseled on the following: treatment plan and future treatment options. Discussion/SummaryPleasant 50 year-old female with chronic left leg pain with subsequent CRPS related to a WC injury she sustained on 03/09/2002. She is currently medicinally managed with Hydrocodone, Tizanidine, Topiramate and Duloxetine and these medications are tolerable and effective. She does have difficulty independently doing house chores, cooking, personal hygiene and ADL's or anything that consists of her standing for long periods. She could benefit from a home health aide to come and assist her with the previous said things to promote safety and prevent falling and further injuring herself. Variance placed for patient to get this home service. Previous UDS reviewed and in compliance. Refills sent. She has been compliant with the treatment agreement and has not exhibited any aberrant behavior. She should follow up in 30 days. Work / School NotePATIENT: if you submit this to your employer as an out of work note please be aware this includes PHI (Protected Health Information). The incident described by the patient is a competent medical cause of this injury. The patient's complaints are consistent with the history of the injury/illness. The patient's history of the injury/illness is consistent with my objective findings. The patient is not working at this time. Patient is on permanent disability. Disability rating is 67 %. 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 Creatinine has been ordered as well for specimen validity, not for kidney function. Preliminary UDS results are not final and should not be used to determine patient care or plan of treatment. Initially a qualitative immunoassay screen will be done. Any positive findings or negative findings that are out of compliance will be further tested with a more comprehensive quantitative confirmation LCMS study. It is part of the normal prescribing protocol of controlled substances and is considered standard of care. The patient is being seen today for workers compensation refill of prescriptions for controlled substances. The workers compensation date of injury is 03-09-04. Current Meds 1. Bydureon 2 MG Subcutaneous Pen- injector; Therapy: 28Ysg3177 to Recorded 2. DULoxetine HCl - 60 MG Oral Capsule Delayed Release Particles; TAKE 1 CAPSULE DAILY. MDD:1; Therapy: 68Sgi4975 to (Evaluate:38Wnz8288) Requested for: 27Tmj6739; Last Rx:[id number] Ordered 3. Fluticasone Propionate 50 MCG/ACT Nasal Suspension; Therapy: 90Jzx4965 to Recorded 4. HYDROcodone-Acetaminophen 5-325 MG Oral Tablet; one po daily prn pain MDD:1; Therapy: 95Xoe7025 to (Evaluate:51Neh0346) Requested for: 30Dwe7577; Last Rx:[id number] Ordered 5. hydrOXYzine HCl - 25 MG Oral Tablet; Take 3 at bedtime; Therapy: 25Irj3413 to Recorded 6. Levocetirizine Di hydrochloride 5 MG Oral Tablet; Therapy: (Recorded:03Kcw4965) to Recorded 7. Losartan Potassium 25 MG Oral Tablet; Therapy: 14Apr2020 to Recorded 8. metFORMIN HCl - 1000 MG Oral Tablet; Therapy: 02Jan2013 to Recorded 9. Montelukast Sodium 10 MG Oral Tablet; Therapy: 24Ujt0221 to Recorded 10. Multi Vitamin/Minerals TABS; Therapy: (Recorded:19Whi5310) to Recorded 11. PriLOSEC 40 MG CPDR; Therapy: (Recorded:15Jan2016) to Recorded 12. Simvastatin 40 MG Oral Tablet; Therapy: (Recorded:29Fun4659) to Recorded 13. tiZANidine HCl - 2 MG Oral Tablet; TAKE 1-2 TABLETS AT HS NEEDED FOR SPASM MDD:2; Therapy: 14Nov2012 to (Evaluate:86Zhr4731) Requested for: 24Mar2020; Last Rx:14Tfj0346 Ordered 14. Topiramate 50 MG Oral Tablet; ONE PO EVERY HS MDD:1; Therapy: 22Dec2011 to (Evaluate:91Uhm4079) Requested for: 24Mar2020; Last Rx:87Ikg1231 Ordered 15. Toujeo SoloStar 300 UNIT/ML Subcutaneous Solution Pen-injector; Therapy: 27Dec2017 to Recorded 16. traZODone HCl - 100 MG Oral Tablet; Therapy: 14Sep2018 to Recorded 17. Vitamin C TABS; Therapy: (Recorded:47Kes8727) to Recorded 18. ZyrTEC Allergy 10 MG Oral Tablet; Therapy: 76Yqr7744 to Recorded Allergies Iodinated Contrast Media Hives; Shortness of breath;; Updated By: Hannah Costa; 04/03/2012 11:46:50 AM Sulfa Drugs Hives;; Updated By: Hannah Costa; 04/03/2012 11:46:50 AM Amitriptyline HCl TABS mouth sores; Updated By: Hannah Costa; 04/03/2012 11:46:50 AM Amoxicillin TABS Rash; Recorded By: Valorie Ramírez; 03/09/2015 12:57:40 PM Depakote Headache; Recorded By: Valorie Ramírez; 03/09/2015 12:57:40 PM Inderal unknown; Recorded By: Valorie Ramírez; 03/09/2015 12:57:40 PM Lyrica CAPS black spots/eye pain; Updated By: Hannah Costa; 04/03/2012 11:46:50 AM Neurontin TABS mouth sores; Updated By: Hannah Costa; 04/03/2012 11:46:50 AM riboflavin mouth sores; Recorded By: Valorie Ramírez; 03/09/2015 12:57:40 PM Zinc Rash; Recorded By: Sheridan Carrero; 07/06/2020 2:27:26 PM gabapentin Recorded By: Vick Cantu; 07/21/2017 12:50:25 PM Adhesive Tape Updated By: Hannah Costa; 04/03/2012 11:46:50 AM Latex Updated By: Hannah Costa; 04/03/2012 11:46:50 AM NotesNYSW 30 Day RX Note: Chief complaint: Patient is here today for 30 day refill of their controlled substance prescription Patient is being treated with chronic opioid therapy for CRPS left lower extremity. Patient denies side effects related to chronic opioid use and has been re-educated regarding the controlled substance agreement. In my opinion patient continues to receive adjunctive benefit with chronic opioid therapy. . CONTROLLED SUBSTANCE INFORMATION: I advised the patient to day/previously regarding treatment with the above controlled substance and/or narcotic. The patient was then informed of the risks, benefits, and alternatives of the narcotic. The risks discussed included but were not limited to physical and/or psychological dependence, tolerance of the medication, drowsiness, sleepiness, balance/coordination problems, confusion, allergic reaction or any other abnormal symptoms. The patient was advised and agreed to use the medication only as prescribed, and not to drive, or operate heavy equipment or machinery. The patient understood and consented to both undergo a narcotic/opiate regimen and agrees to comply with all of the [facility] terms of a controlled substance treatment and agreement. I am giving the patient a 30 day refill without changes. The patient consents to move forward with treatment. ...OPIOID ABUSE is a national epidemic that Physicians and other prescribers have the power to help prevent. In our opioid monitoring surveillance to help minimize misuse and diversion, moderate to high risk patients are required to have face to face 30 day refill of opioids. This will help minimize the potential for electronic false requests, deterring potential fraudulent behavior. [facility] ELECTRICAL ENGINEER MEP Information: ELECTRICAL ENGINEER MEP was consulted by my designee and I have reviewed the information presented to me and find no aberrant compliance issues. Patient has been informed. Physical ExamGeneral: The patient is a well nourished/well developed, female, who is obese, who is in no acute distress and appears stated age. Eyes: Lids are atraumatic, no lesions, sclerae are anicteric. Ears, Nose, Mouth, Throat: external ears and nose without trauma. Patient wearing a mask due to COVID-19. Respiratory: Normal chest expansion and respiratory effort. Gait and Station: Gait was normal. Skin: Warm, dry, acyanotic. Psychological: Alert and oriented to person, place and time. Mood and affect are pleasant and appropriate. Judgement intact. Insight normal without delusions or hallucinations. Denies suicidal/homicidal ideation. [facility] Prior UDS Results Detail Form: This patient had a urine drug screen on 07/06/2020. Results are in compliance. Assessment 1. Other chronic pain (338.29) (G89.29) 2. Lumbar radiculitis (724.4) (M54.16) 3. CRPS (complex regional pain syndrome), lower limb (337.22) (G90.529) 4. 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 Start: DULoxetine HCl - 30 MG Oral Capsule Delayed Release Particles; TAKE 1 CAPSULE DAILY along with the 60 mg capsule for TDD to be 90 mg MDD:1 2. Renew: HYDROcodone- Acetaminophen 5-325 MG Oral Tablet ([place]); one po daily prn pain MDD: 3. UDS-LAB WC / NF ([facility] Urine Drug Screen); [Do Not Release]; Specimen Source:Urine; Status:In Progress - Specimen/Data Collected; Done: 3 [facility] Treatment Plan (2): In my opinion based on subjective and objective findings from today's visit the patient is status quo. Medication:. Medication list was reviewed with the patient, and updates were made to reflect her current medication regimen. Allergy list was reviewed with patient, and any necessary changes were made. There are no changes in current medications at this visit. Patient instructed to continue current regimen. UDS: This is an established patient and is on ongoing opioid therapy. A UDS is being obtained today, the patient has previously consented to UDS as part of the Controlled Substance and Treatment Agreement. The reason for today's UDS is: patient was selected at random and scored as high risk on the opioid risk assessment. Creatinine has been ordered as well for specimen validity, not for kidney function. Preliminary UDS results are not final and should not be used to determine patient care or plan of treatment. Initially a qualitative immunoassay screen will be done. Any positive findings or negative findings that are out of compliance will be further tested with a more comprehensive quantitative confirmation LCMS study. It is part of the normal prescribing protocol of controlled substances and is considered standard of care. - FRONT OFFICE ADMINISTRATOR: The patient was counseled on the following: treatment plan. Discussion/SummaryReports a pain level today of 6/10 which it has not been below that. On a bad day 07/18. She reports that she has been having increased numbness and tingling. I will increase her Duloxetine from 60 mg daily to 90 mg daily as a neuropathic analgesic. No other changes. UDS collected. She should follow up in 1 months time. Work / School NoteNYSW Disability Status: PATIENT: if you submit this to your employer as an out of work note please be aware this includes PHI (Protected Health Information). The incident described by the patient is a competent medical cause of this injury. The patient's complaints are consistent with the history of the injury/illness. The patient's history of the injury/illness is consistent with my objective findings. The patient is not working at this time. Patient is on permanent disability. Disability rating is 67 %. 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 Creatinine has been ordered as well for specimen validity, not for kidney function. Preliminary UDS results are not final and should not be used to determine patient care or plan of treatment. Initially a qualitative immunoassay screen will be done. Please note this is not a dip test. Any positive findings or negative findings that are out of compliance will be further tested with a more comprehensive quantitative confirmation LCMS study. It is part of the normal prescribing protocol of controlled substances and is considered standard of care. Recent test/procedures: Patient was asked and denies having any tests since their last visit. Patient was asked and denies being seen by any Physicians since their last visit. The patient was last seen by a [facility] provider on 05/15/2020. At today's visit patient presents with their Self Patient is not currently working. The patient is being seen for a workers compensation follow- up. The workers compensation date of injury is 03/09/2004. Pain Quality: (Neuropathic) burning and pain changes with weather Pain Quality: (Nociceptive) aching Timing: constant Progression: unchanged Palliation: non-opioid analgesics, opioid analgesics and spinal cord stimulator (SCS) Exacerbating: standing, walking and weather, but No exacerbating factors are noted Pain Score: a current pain level of 4/10, a minimum pain level of 3/10 and a maximum pain level of 10/10. Condition type: The patient is being seen for a chronic condition. INJURY SETTING: at work. INJURY MECHANISM: The injury resulted from trauma. PAIN LOCATION: (left leg ). REVIEW OF PAST DIAGNOSTICS: have included: MRI, x-rays, electromyography/nerve conduction studies and spinal cord stimulator. PAST TREATMENT has included: ANTICONVULSANTS (effective) Includes Topamax., ANTIDEPRESSANTS (effective) Includes Cymbalta . helps pain at least 75%., MUSCLE RELAXANTS (effective) Includes Tizanidine . helps at least 50%., OPIOID ANALGESICS (effective) Includes Hydrocodone . uses sparingly, helps sleep 60%. The trialing of opioid therapy has resulted in: at least a 30% reduction in the patient's VAS score (3pts). Improvement in function as evidence by: increase in ADL's INTERVAL EVENTS: include . She had her SCS reprogrammed today. ASSOCIATED SYMPTOMS: include difficulty walking and extremity weakness: , but no fecal incontinence and no urinary incontinence. FUNCTIONAL LIMITATIONS: The patient's functional status is limited as follows: ability to work. MEDICATION SIDE EFFECTS experienced by patient are: no known medication side effects. Review of SystemsConstitutional: Normal. Eyes: Normal. ENT: normal. Cardiovascular: Normal. Respiratory: Normal. Gastrointestinal: Normal. Genitourinary: Normal. Musculoskeletal: limb pain. Integumentary: Normal. Neurological: Normal. Psychiatric: Normal. Endocrine: Normal. Hematologic/Lymph atic: Normal. Patient maintains at today's visit there has been no change in his/her hematologic history. I reviewed the above with the patient and I feel the ROS to be negative/normal other than musculoskeletal. Active Problems 1. Acute thoracic back pain (724.1) (M54.6) 2. 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 Complex regional pain syndrome type 1 of left lower extremity (337.22) (G90.522) 4. CRPS (complex regional pain syndrome) (355.9) 5. CRPS (complex regional pain syndrome), lower limb (337.22) (G90.529) 6. Encounter for long-term (current) use of medications (V58.69) (Z79.899) 7. Leg pain, diffuse, left (729.5) (M79.605) 8. 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 Lumbar radiculitis (724.4) (M54.16) 11. Other chronic pain (338.29) (G89.29) 12. Pain in unspecified limb (729.5) (M79.609) 13. Reflex sympathetic dystrophy of lower extremity (337.22) (G90.529) Allergies Iodinated Contrast Media Hives; Shortness of breath;; Updated By: Hannah Costa; 04/03/2012 11:46:50 AM Sulfa Drugs Hives;; Updated By: Hannah Costa; 04/03/2012 11:46:50 AM Amitriptyline HCl TABS mouth sores; Updated By: Hannah Costa; 04/03/2012 11:46:50 AM Amoxicillin TABS Rash; Recorded By: Valorie Ramírze; 03/09/2015 12:57:40 PM Depakote Headache; Recorded By: Valorie Ramírez; 03/09/2015 12:57:40 PM Inderal unknown; Recorded By: Valorie Ramírez; 03/09/2015 12:57:40 PM Lyrica CAPS black spots/eye pain; Updated By: Hannah Costa; 04/03/2012 11:46:50 AM Neurontin TABS mouth sores; Updated By: Hannah Costa; 04/03/2012 11:46:50 AM riboflavin mouth sores; Recorded By: Valorie Ramírez; 03/09/2015 12:57:40 PM Zinc Rash; Recorded By: Sheridan Carrero; 07/06/2020 2:27:26 PM gabapentin Recorded By: Vick Cantu; 07/21/2017 12:50:25 PM Adhesive Tape Updated By: Hannah Costa; 04/03/2012 11:46:50 AM Latex Updated By: Hannah Costa; 04/03/2012 11:46:50 AM Current Meds Bydureon 2 MG Subcutaneous Pen-injector;Therapy: 77Dux8830 to Recorded DULoxetine HCl - 60 MG Oral Capsule Delayed Release Particles; TAKE 1 CAPSULEDAILY. MDD:1;Therapy: 22Dec2011 to (Evaluate:12Aug2020) Requested for: 51Uex5853; LastRx:[id number] Ordered Fluticasone Propionate 50 MCG/ACT Nasal Suspension;Therapy: 82Sjt1447 to Recorded HYDROcodone-Acetaminophen 5-325 MG Oral Tablet; one po daily prn pain MDD:1;Therapy: 78Yhc1070 to (Evaluate:32Zcw5190) Requested for: 93Fto1037; LastRx:[id number] OrderedLD pt sts 2 weeks ago hydrOXYzine HCl - 25 MG Oral Tablet; Take 3 at bedtime;Therapy: 39Chy1395 to Recorded Levocetirizine Dihydrochloride 5 MG Oral Tablet;Therapy: (Recorded:97Upi4440) to Recorded Losartan Potassium 25 MG Oral Tablet;Therapy: 68Erp8337 to Recorded metFORMIN HCl - 1000 MG Oral Tablet;Therapy: 02Jan2013 to Recorded Montelukast Sodium 10 MG Oral Tablet;Therapy: 71Ntx5009 to Recorded Multi Vitamin/Minerals TABS;Therapy: (Recorded:23Xov5919) to Recorded PriLOSEC 40 MG CPDR;Therapy: (Recorded:16Eqt4605) to Recorded Simvastatin 40 MG Oral Tablet;Therapy: (Recorded:62Bcz8103) to Recorded tiZANidine HCl - 2 MG Oral Tablet; TAKE 1-2 TABLETS AT HS NEEDED FOR SPASMMDD:2;Therapy: 23Nad2275 to (Evaluate:90Cqw1890) Requested for: 24Mar2020; LastRx:43Lyf9762 Ordered Topiramate 50 MG Oral Tablet; ONE PO EVERY HS MDD:1;Therapy: 22Dec2011 to (Evaluate:86Rft7009) Requested for: 24Mar2020; LastRx:24Mar2020 Ordered Toujeo SoloStar 300 UNIT/ML Subcutaneous Solution Pen-injector;Therapy: 27Dec2017 to RecordedFormulary Override Reason: No Formulary Equivalent Exists traZODone HCl - 100 MG Oral Tablet;Therapy: 03Cqq3699 to Recorded Vitamin C TABS;Therapy: (Recorded:92Fsa0730) to Recorded ZyrTEC Allergy 10 MG Oral Tablet;Therapy: 45Lwg2919 to Recorded Past Medical History Denied: History of Currently Denied: History of Depression Denied: History of blood coagulation disorder History of diabetes mellitus (V12.29) (Z86.39) History of Reflex sympathetic dystrophy of lower extremity (337.22) (G90.529) History of Sinus Tachycardia (427.89) Denied: History of Taking Blood Thinners Surgical History History of Foot Surgery History of Gastric Surgery For Morbid Obesity Bypass With Caitlin-en-Y Denied: History of Implantable Cardioverter-Defibrillator History of Neck Surgery fusion History of Neuroplasty Decompression Median Nerve At Carpal Tunnel History of Neuroplasty Of Ulnar Nerve Left Hand Denied: History of Permanent Pacemaker Type History of Tonsillectomy History of Wrist Surgery Family History Family history of Arthritis (V17.7) Family history of Cancer Family history of Diabetes Mellitus (V18.0) Family history of Hypertension (V17.49) Family history of Cancer Family history of Diabetes Mellitus (V18.0) Family history of Heart Disease (V17.49) Family history of Hypertension (V17.49) Family history of Hypertension (V17.49) Family history of Hypertension (V17.49) Family history of Cancer Family history of Diabetes Mellitus (V18.0) Family history of Cancer Family history of Diabetes Mellitus (V18.0) Family history of Arthritis (V17.7) Family history of Cancer Family history of Diabetes Mellitus (V18.0) Family history of Heart Disease (V17.49) Family history of Hypertension (V17.49) Social History Current non-drinker of alcohol (V49.89) (Z78.9) [id number] Denied: History of Drug Use Former smoker (V15.82) (Z87.891) Marital History - Currently Not Currently Employed VitalsVital Signs Recorded: 96Rrm1662 02:24PM Height: 5 ft 5 inWeight: 235 lb BMI Calculated: 39.11BSA Calculated: 2.12Systolic: 121, SittingDiastolic: 82, SittingHeart Rate: 78Respiration: 16Temperature: 98 FHeight measured w/wo shoes: w/shoesPain Scale: 4 Physical ExamGeneral: The patient is a well nourished/well developed, female, who is obese, who is in no acute distress and appears stated age. Eyes: Lids are atraumatic, no lesions, sclerae are anicteric. Ears, Nose, Mouth, Throat: Patient wearing a mask due to COVID-19. Respiratory: Normal chest expansion and respiratory effort. Gait and Station: Gait was antalgic. Skin: Warm, dry, acyanotic. Psychological: Alert and oriented to person, place and time. Mood and affect are pleasant and appropriate. Judgement intact. Insight normal without delusions or hallucinations. Denies suicidal/homicidal ideation. Results/DataThis patient had a urine drug screen on 05/15/2020. Results are in compliance. Assessment 1. 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 Other chronic pain (338.29) (G89.29) 3. CRPS (complex regional pain syndrome), lower limb (337.22) (G90.529) Plan 1. Renew: DULoxetine HCl - 60 MG Oral Capsule Delayed Release Particles (Cymbalta); TAKE 1 CAPSULE DAILY. MDD:1 2. Renew: HYDROcodone-Acetaminophen 5-325 MG Oral Tablet ([place]); one po daily prn pain MDD:1LD pt sts 2 weeks ago 3. UDS-LAB WC / NF ([facility] Urine Drug Screen); [Do Not Release]; Specimen Source:Urine; Status:In Progress - Specimen/Data Collected; Done: 06Jul2020 4. 30 Day RX Management Follow-up Status: Hold For - Scheduling Requested for: 06Jul2020). Schedule (FUP) 60 days from today: : 61Dfg2124). Is an additional appointment needed....? : Yes). Schedule 30 day RX from TODAY's date (2 days +/- either way): : 05Aug2020 In my opinion based on subjective and objective findings from today's visit the patient is status quo. Medication:. Medication list was reviewed with the patient, and updates were made to reflect her current medication regimen. Allergy list was reviewed with patient, and any necessary changes were made. [facility] ELECTRICAL ENGINEER MEP Information: ELECTRICAL ENGINEER MEP was consulted by my designee and I have reviewed the information presented to me and find no aberrant compliance issues. Patient has been informed. General Medications Prescribed: TIZANIDINE, TOPIRAMATE . GENERAL MEDICATIONS: I advised the patient today/previously regarding treatment with the above medication(s). The risks, benefits, common side effects and alternative treatments were discussed with the patient. The provider verbalized with the patient. The patient verbalized understanding and was told to call if there were any untoward effects. Controlled Substance Prescribed: HYDROCODONE . CONTROLLED SUBSTANCE INFORMATION: I advised the patient today/previously regarding treatmen t with the above controlled substance and/or narcotic. The patient was then informed of the risks, benefits, and alternatives of the narcotic. The risks discussed included but were not limited to physical and/or psychological dependence, tolerance of the medication, drowsiness, sleepiness, balance/coordination problems, confusion, allergic reaction or any other abnormal symptoms. The patient was advised and agreed to use the medication only as prescribed, and not to drive, or operate heavy equipment or machinery. The patient understood and consented to both undergo a narcotic/opiate regimen and agreed to sign and comply with all of the [facility] terms of a controlled substance treatment and agreement.Antidepressants Prescribed: DULOXETINE . ANTI-DEPRESSANT: I advised the patient today/previously regarding treatment with the above antidepressant(s). Patient is aware of rare but serious risk of potential suicidal thoughts, worsening depression, and/or serotonin syndrome. Patient agrees to discontinue medication and to contact [place], friend(s) or family member(s), and/or 1 if this occurs. The patient is on the lowest possible dose of opioids. The patient denies adverse side effects and does not demonstrate any aberrant drug taking behaviors. The patient is able to perform ADL's including the following activities for longer periods of time with less pain: activities of daily living, sleeping, walking, standing, sitting, grocery shopping . There are no changes in current medications at this visit. Patient instructed to continue current regimen. The prescribed medica tions are medically necessary for pain management and rehabilitation. UDS: This is an established patient and is on ongoing opioid therapy. A UDS is being obtained today, the patient has previously consented to UDS as part of the Controlled Substance and Treatment Agreement. The reason for today's UDS is: patient was selected at random and scored as high risk on the opioid risk assessment. Creatinine has been ordered as well for specimen validity, not for kidney function. Preliminary UDS results are not final and should not be used to determine patient care or plan of treatment. Initially a qualitative immunoassay screen will be done. Any positive findings or negative findings that are out of compliance will be further tested with a more comprehensive quantitative confirmation LCMS study. It is part of the normal prescribing protocol of controlled substances and is considered standard of care. Treatment includes: PROCEDURE(S): The patient defers blocks/procedures at this time FOLLOW UP: The p atient should have a follow up visit in 2 months. The patient should have a follow up 30 Day RX. CONTINUE TREATMENT: Jena will continue with the following:. Patient will follow up with their PCP. Jena is participating in a home exercise program and is encouraged to continue. Miscellaneous: - WEIGHT LOSS: Weight loss was discussed and encouraged. 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 Discussion/SummaryPleasant 49 year-old female with chronic left leg pain with subsequent CRPS related to a WC injury she sustained on 03/09/2002. She is currently medicinally managed with Hydrocodone, Tizanidine, Topiramate and Duloxetine. She continues to stabilize her pain with her prescribed medications but continues to have difficulty with house chores because of her inability to stand for long periods. She reports that it takes 3-4 days for her to clean her kitchen and living room. She is inquiring about getting home services to aide h with cleaning. I am unaware if her insurance company with authorize this, however, I am in agreement that this service is needed. No changes with her medication regimen. UDS collected. She has been compliant with the controlled substance and treatment agreement, urine drug screen and has not exhibited any aberrant behavior. hese medications are tolerable and effective. She has a SCS that was reprogrammed today. She defers nerve blocks/injections/therapies. She will follow up in 30 days for a medication visit. Work / School NotePATIENT: if you submit this to your employer as an out of work note please be aware this includes PHI (Protected Health Information). The incident described by the patient is a competent medical cause of this injury. The patient's complaints are consistent with the history of the injury/illness. The patient's history of the injury/illness is consistent with my objective findings. The patient is not working at this time. Patient is on permanent disability. Disability rating is 67 %. Signatures Electronically signed by : Denise Sharpe NP; Jul 06 2020 3:19PM EST (Author) Electronically signed by : Mally Bobby MD; Jul 07 2020 9:45AM EST Name Value Range Interpretation Code Description Data Melissa rce(s) Supporting Document(s) ID Date Data Source [id number] 05/18/2020 08:46:23 AM EDT [facility], PCName: Kristen GonzaleslollyDOB: 1970Provider: Ileana Castro: 05/15/2020 Chief Complaint 2 MA completing section: omer dominguez lpn History of Present IllnessA Urine Drug Screen was ordered for Jena Cloud and collected on site today 05/15/2020. Creatinine has been ordered as well for specimen validity, not for kidney function. Preliminary UDS results are not final and should not be used to determine patient care or plan of treatment. Initially a qualitative immunoassay screen will be done. Any positive findings or negative findings that are out of compliance will be further tested with a more comprehensive quantitative confirmation LCMS study. It is part of the normal prescribing protocol of controlled substances and is considered standard of care. The patient is being seen today for workers compensation refill of prescriptions for controlled substances. The workers compensation date of injury is 03-09-04. Current Meds 1. Bydureon 2 MG Subcutaneous Pen-injector; Therapy: 68Axy7686 to Recorded 2. DULoxetine HCl - 60 MG Oral Capsule Delayed Release Particles; TAKE 1 CAPSULE DAILY. MDD:1; Therapy: 22Dec2011 to (Evaluate:12Aug2020) Requested for: 89Hci6432; Last Rx:17Ogq6313 Ordered 3. Fluticasone Propionate 50 MCG/ACT Nasal Suspension; Therapy: 85Jlq3914 to Recorded 4. HYDROcodone-Acetaminophen 5-325 MG Oral Tablet; one po daily prn pain MDD:1; Therapy: 00Kgr3145 to (Evaluate:08Ukd3326) Requested for: 23Lkm6113; Last Rx:40Ppw3413 Ordered 5. hydrOXYzine HCl - 25 MG Oral Tablet; Take 3 at bedtime; Therapy: 97Xut1935 to Recorded 6. Levocetirizine Dihydr ochloride 5 MG Oral Tablet; Therapy: (Recorded:48Txr7687) to Recorded 7. Losartan Potassium 25 MG Oral Tablet; Therapy: 14Apr2020 to Recorded 8. metFORMIN HCl - 1000 MG Oral Tablet; Therapy: 02Jan2013 to Recorded 9. Montelukast Sodium 10 MG Oral Tablet; Therapy: 29Jnf1217 to Recorded 10. Multi Vitamin/Minerals TABS; Therapy: (Recorded:79Umr5816) to Recorded 11. PriLOSEC 40 MG CPDR; Therapy: (Recorded:57Kcy2908) to Recorded 12. Simvastatin 40 MG Oral Tablet; Therapy: (Recorded:07Tzk6274) to Recorded 13. tiZANidine HCl - 2 MG Oral Tablet; TAKE 1-2 TABLETS AT HS NEEDED FOR SPASM MDD:2; Therapy: 89Idr4030 to (Evaluate:20Tcv9708) Requested for: 24Mar2020; Last Rx:24Mar2020 Ordered 14. Topiramate 50 MG Oral Tablet; ONE PO EVERY HS MDD:1; Therapy: 22Dec2011 to (Evaluate:97Kio1456) Requested for: 24Mar2020; Last Rx:25Ulo1901 Ordered 15. Toujeo SoloStar 300 UNIT/ML Subcutaneous Solution Pen-injector; Therapy: 27Dec2017 to Recorded 16. traZODone HCl - 100 MG Oral Tablet; Therapy: 49Bmy9654 to Recorded 17. Vitamin C TABS; Therapy: (Recorded:04Coj7050) to Recorded 18. ZyrTEC Allergy 10 MG Oral Tablet; Therapy: 76Twa5148 to Recorded Allergies Iodinated Contrast Media Hives; Shortness of breath;; Updated By: Hannah Costa; 04/03/2012 11:46:50 AM Sulfa Drugs Hives;; Updated By: Hannah Costa; 04/03/2012 11:46:50 AM Amitriptyline HCl TABS mouth sores; Updated By: Hannah Costa; 04/03/2012 11:46:50 AM Amoxicillin TABS Rash; Recorded By: Valorie Ramírez; 03/09/2015 12:57:40 PM Depakote Headache; Recorded By: Valorie Ramírez; 03/09/2015 12:57:40 PM Inderal unknown; Recorded By: Valorie Ramírez; 03/09/2015 12:57:40 PM Lyrica CAPS black spots/eye pain; Updated By: Hannah Costa; 04/03/2012 11:46:50 AM Neurontin TABS mouth sores; Updated By: Hannah Costa; 04/03/2012 11:46:50 AM riboflavin mouth sores; Recorded By: Valorie Ramírez; 03/09/2015 12:57:40 PM gabapentin Recorded By: Vick Cantu; 07/21/2017 12:50:25 PM Adhesive Tape Updated By: Hannah Costa; 04/03/2012 11:46:50 AM Latex Updated By: Hannah Costa; 04/03/2012 11:46:50 AM NotesNYSW 30 Day RX Note: Chief complaint: Patient is here today for 30 day refill of their controlled substance prescription Patient is being treated with chronic opioid therapy for Left lower extremity, left knee pain resulting from a Worker's Comp. injury that occurred on 6103. Patient denies side effects related to chronic opioid use and has been re-educated regarding the controlled substance agreement. In my opinion patient continues to receive primary benefit with chronic opioid therapy. HYDROCODONE . CONTROLLED SUBSTANCE INFORMATION: I advised the patient today/previously regarding treatment with the above controlled substance and/or narcotic. The patient was then informed of the risks, benefits, and alternatives of the narcotic. The risks discussed included but were not limited to physical and/or psychological dependence, tolerance of the medication, drowsiness, sleepiness, balance/coordination problems, confusion, allergic reaction or any other abnormal symptoms. The patient was advised and agreed to use the medication only as prescribed, and not to drive, or operate heavy equipment or machinery. The patient understood and consented to both undergo a narcotic/opiate regimen and agrees to comply with all of the [facility] terms of a controlled substance treatment and agreement. I am giving the patient a 30 day refill without changes. The patient consents to move forward with treatment. ...OPIOID ABUSE is a national epidemic that Physicians and other prescribers have the power to help prevent. In our opioid monitoring surveillance to help minimize misuse and diversion, moderate to high risk patients are required to have face to face 30 day refill of opioids. This will help minimize the potential for electronic false requests, deterring potential fraudulent behavior. [facility] ELECTRICAL ENGINEER MEP Information: ELECTRICAL ENGINEER MEP was consulted by my designee and I have reviewed the information presented to me and find no aberrant compliance issues. Patient has been informed. Physical ExamGeneral: The patient is a well nourished/well developed, female, who is obese, who is in no acute distress and appears stated age. Eyes: Lids are atraumatic, no lesions, sclerae are anicteric. Ears, Nose, Mouth, Throat: external ears and nose without trauma. Respiratory: Normal chest expansion and respiratory effort. Gait and Station: Gait was normal. Skin: Warm, dry, acyanotic. Psychological: Alert and oriented to person, place and time. Mood and affect are pleasant and appropriate. Judgement intact. Insight normal without delusions or hallucinations. Denies suicidal/homicidal ideation. Results/DataNYSW UDS Prior UDS Results Detail Form: This patient had a urine drug screen on 04/14/2020. Results are in compliance. Assessment 1. CRPS (complex regional pain syndrome), lower limb (337.22) (G90.529) 2. 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 Renew: HYDROcodone-Acetaminophen 5-325 MG Oral Tablet ([place]); one po daily prn pain MDD:1ld 05-14-2020 2. UDS-LAB WC / NF ([facility] Urine Drug Screen); [Do Not Release]; Specimen Source:Urine; Status:In Progress - Specimen/Data Collected; Done: 97Zoa8176 [facility] Treatment Plan (2): UDS: This is an established patient and is on ongoing opioid therapy. A UDS is being obtained today, the patient has previously consented to UDS as part of the Controlled Substance and Treatment Agreement. The reason for today's UDS is: patient was selected at random and scored as high risk on the opioid risk assessment. Creatinine has been ordered as well for specimen validity, not for kidney function. Preliminary UDS results are not final and should not be used to determine patient care or plan of treatment. Initially a qualitative immunoassay screen will be done. Any positive findings or negative findings that are out of compliance will be further tested with a more comprehensive quantitative confirmation LCMS study. It is part of the normal prescribing protocol of controlled substances and is considered standard of care. Work / School NoteNYSW Disability Status: PATIENT: if you submit this to your employer as an out of work note please be aware this includes PHI (Protected Health Information). The incident described by the patient is a competent medical cause of this injury. The patient's complaints are consistent with the history of the injury/illness. The patient's history of the injury/illness is consistent with my objective findings. The patient is not working at this time. Patient is on permanent disability. Disability rating is 67 %. Dragon DisclaimerNYSWC Motivating Wellness Disclaimer: This document was dictated and electronically signed using [employer] Speaking software. A reasonable attempt at proof reading has been made to minimize errors. Please call with any questions. 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 Creatinine has been ordered as well for specimen validity, not for kidney function. Preliminary UDS results are not final and should not be used to determine patient care or plan of treatment. Initially a qualitative immunoassay screen will be done. Please note this is not a dip test. Any positive findings or negative findings that are out of compliance will be further tested with a more comprehensive quantitative confirmation LCMS study. It is part of the normal prescribing protocol of controlled substances and is considered standard of care. Recent test/procedures: Patient was asked and denies having any tests since their last visit. Patient was asked and denies being seen by any Physicians since their last visit. The patient was last seen by a [facility] provider on 03/09/2020. At today's visit patient presents with their Self Patient is not currently working. The patient is being seen for a workers compensation follow- up. The workers compensation date of injury is 03/09/2004. Pain Quality: (Neuropathic) burning and pain changes with weather Pain Quality: (Nociceptive) aching Timing: constant Progression: unchanged Palliation: non-opioid analgesics, opioid analgesics and spinal cord stimulator (SCS) Exacerbating: standing, walking and weather Pain Score: a current pain level of 7/10, a minimum pain level of 4/10 and a maximum pain level of 10/10. Condition type: The patient is being seen for a chronic condition. INJURY SETTING: at work. INJURY MECHANISM: The injury resulted from trauma. PAIN LOCATION: (left leg ). REVIEW OF PAST DIAGNOSTICS: have included: MRI, x-rays, electromyography/nerve conduction studies and spinal cord stimulator. PAST TREATMENT has included: ANTICONVULSANTS (effective) Includes Topamax., ANTIDEPRESSANTS (effective) Includes Cymbalta . helps pain at least 75%., MUSCLE RELAXANTS (effective) Includes Tizanidine . helps at least 50%., OPIOID ANALGESICS (effective) Includes Hydrocodone . uses sparingly, helps sleep 60%. The trialing of opioid therapy has resulted in: at least a 30% reduction in the patient's VAS score (3pts). Improvement in function as evidence by: increase in ADL's INTERVAL EVENTS: include . She had her SCS reprogrammed today. ASSOCIATED SYMPTOMS: include difficulty walking and extremity weakness: , but no fecal incontinence and no urinary incontinence. FUNCTIONAL LIMITATIONS: The patient's functional status is limited as follows: ability to work. MEDICATION SIDE E FFECTS experienced by patient are: no known medication side effects. Review of SystemsConstitutional: Normal. Eyes: Normal. ENT: normal. Cardiovascular: Normal. Respiratory: Normal. Gastrointestinal: Normal. Genitourinary: Normal. Musculoskeletal: limb pain. Integumentary: Normal. Neurological: Normal. Psychiatric: Normal. Endocrine: Normal. Hematologic/Lymphatic: Normal. Patient maintains at today's visit there has been no change in his/her hematologic history. I reviewed the above with the patient and I feel the ROS to be negative/normal other than musculoskeletal. Active Problems 1. Acute thoracic back pain (724.1) (M54.6) 2. 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 Complex regional pain syndrome type 1 of left lower extremity (337.22) (G90.522) 4. CRPS (complex regional pain syndrome) (355.9) 5. CRPS (complex regional pain syndrome), lower limb (337.22) (G90.529) 6. Encounter for long-term (current) use of medications (V58.69) (Z79.899) 7. Leg pain, diffuse, left (729.5) (M79.605) 8. prison (current) use of opiate analgesic (V58.69) (Z79.891) 9. prison current use of opiate analgesic (V58.69) (Z79.891) 10. Lumbar radiculitis (724.4) (M54.16) 11. Other chronic pain (338.29) (G89.29) 12. Pain in unspecified limb (729.5) (M79.609) 13. Reflex sympathetic dystrophy of lower extremity (337.22) (G90.529) Allergies Iodinated Contrast Media Hives; Shortness of breath;; Updated By: Hannah Costa; 04/03/2012 11:46:50 AM Sulfa Drugs Hives;; Updated By: Hannah Costa; 04/03/2012 11:46:50 AM Amitriptyline HCl TABS mouth sores; Updated By: Hannah Costa; 04/03/2012 11:46:50 AM Amoxicillin TABS Rash; Recorded By: Valorie Ramírez; 03/09/2015 12:57:40 PM Depakote Headache; Recorded By: Valorie Ramírez; 03/09/2015 12:57:40 PM Inderal unknown; Recorded By: Valorie Ramírez; 03/09/2015 12:57:40 PM Lyrica CAPS black spots/eye pain; Updated By: Hannah Costa; 04/03/2012 11:46:50 AM Neurontin TABS mouth sores; Updated By: Hannah Costa; 04/03/2012 11:46:50 AM riboflavin mouth s ores; Recorded By: Valorie Ramírez; 03/09/2015 12:57:40 PM gabapentin Recorded By: Vick Cantu; 07/21/2017 12:50:25 PM Adhesive Tape Updated By: Hannah Costa; 04/03/2012 11:46:50 AM Latex Updated By: Hannah Costa; 04/03/2012 11:46:50 AM Current Meds Bydureon 2 MG Subcutaneous Pen-injector;Therapy: 43Cya4071 to Recorded DULoxetine HCl - 60 MG Oral Capsule Delayed Release Particles; TAKE 1 CAPSULEDAILY. MDD:1;Therapy: 22Dec2011 to (Evaluate:60Hbw8632) Requested for: 08Psy1373; LastRx:14Asr6064 Ordered Fluticasone Propionate 50 MCG/ACT Nasal Suspension;Therapy: 43Gga5870 to Recorded HYDROcodone- Acetaminophen 5-325 MG Oral Tablet; one po daily prn pain MDD:1;Therapy: 38Kfz3259 to (Evaluate:35Dyw2581) Requested for: 09Mar2020; LastRx:56Vxx7090 OrderedLD 04/11/2020 hydrOXYzine HCl - 25 MG Oral Tablet; Take 3 at bedtime;Therapy: 87Rjx5181 to Recorded Levocetirizine Dihydrochloride 5 MG Oral Tablet;Therapy: (Recorded:87Stp1435) to Recorded Losartan Potassium 25 MG Oral Tablet;Therapy: 92Pxh2952 to Recorded metFORMIN HCl - 1000 MG Oral Tablet;Therapy: 02Jan2013 to Recorded Montelukast Sodium 10 MG Oral Tablet;Therapy: 51Edn7094 to Recorded Multi Vitamin/Minerals TABS;Therapy: (Recorded:32Upx7652) to Recorded PriLOSEC 40 MG CPDR;Therapy: (Recorded:11Ysa4589) to Recorded Simvastatin 40 MG Oral Tablet;Therapy: (Recorded:58Ydw9844) to Recorded tiZANidine HCl - 2 MG Oral Tablet; TAKE 1-2 TABLETS AT HS NEEDED FOR SPASMMDD:2;Therapy: 94Aqh0815 to (Evaluate:79Luh8476) Requested for: 24Mar2020; LastRx:24Mar2020 Ordered Topiramate 50 MG Oral Tablet; ONE PO EVERY HS MDD:1;Therapy: 22Dec2011 to (Evaluate:82Ain9937) Requested for: 24Mar2020; LastRx:24Mar2020 Ordered Toujeo SoloStar 300 UNIT/ML Subcutaneous Solution Pen-injector;Therapy: 27Dec2017 to RecordedFormulary Override Reason: No Formulary Equivalent Exists traZODone HCl - 100 MG Oral Tablet;Therapy: 74Paz2736 to Recorded Vitamin C TABS;Therapy: (Recorded:65Ytz4649) to Recorded ZyrTEC Allergy 10 MG Oral Tablet;Therapy: 49Qzy1088 to Recorded Past Medical History Denied: History of Currently Denied: History of Depression Denied: History of blood coagulation disorder History of diabetes mellitus (V12.29) (Z86.39) History of Reflex sympathetic dystrophy of lower extremity (337.22) (G90.529) History of Sinus Tachycardia (427.89) Denied: History of Taking Blood Thinners Surgical History History of Foot Surgery History of Gastric Surgery For Morbid Obesity Bypass With Caitlin-en-Y Denied: History of Implantable Cardioverter-Defibrillator History of Neck Surgery fusion History of Neuroplasty Decompression Median Nerve At Carpal Tunnel History of Neuroplasty Of Ulnar Nerve Left Hand Denied: History of Permanent Pacemaker Type History of Tonsillectomy History of Wrist Surgery Family History Family history of Arthritis (V17.7) Family history of Cancer Family history of Diabetes Mellitus (V18.0) Family history of Hypertension (V17.49) Family history of Cancer Family history of Diabetes Stacey litus (V18.0) Family history of Heart Disease (V17.49) Family history of Hypertension (V17.49) Family history of Hypertension (V17.49) Family history of Hypertension (V17.49) Family history of Cancer Family history of Diabetes Mellitus (V18.0) Family history of Cancer Family history of Diabetes Mellitus (V18.0) Family history of Arthritis (V17.7) Family history of Cancer Family history of Diabetes Mellitus (V18.0) Family history of Heart Disease (V17.49) Family history of Hypertension (V17.49) Social History Current non-drinker of alcohol (V49.89) (Z78.9) [id number] Denied: History of Drug Use Former smoker (V15.82) (Z87.891) Marital History - Currently Not Currently Employed VitalsVital Signs Recorded: 18Ldk1037 02:58PM Height: 5 ft 4 inWeight: 242 lb BMI Calculated: 41.54BSA Calculated: 2.12Systolic: 129, SittingDiastolic: 91, SittingHeart Rate: 93Respiration: 16Temperature: 97.9 F, TympanicHeight measured w/wo shoes: w/shoesPain Scale: 7 Physical ExamGeneral: The patient is a well nourished/well developed, who is obese, who is in no acute distress and appears stated age. Eyes: Lids are atraumatic, no lesions, sclerae are anicteric. Ears, Nose, Mouth, Throat: external ears and nose without trauma. Respiratory: Normal chest expansion and respiratory effort. Gait and Station: Gait was antalgic. Skin: Warm, dry, acyanotic. Psychological: Alert and oriented to person, place and time. Mood and affect are pleasant and appropriate. Judgement intact. Insight normal without delusions or hallucinations. Denies suicidal/homicidal ideation. Results/DataThis patient had a urine drug screen on 08/14/2019. Results are in compliance. Assessment 1. 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 CRPS (complex regional pain syndrome), lower limb (337.22) (G90.529) 3. Other chronic pain (338.29) (G89.29) Plan 1. Renew: HYDROcodone- Acetaminophen 5-325 MG Oral Tablet ([place]); one po daily prn pain MDD:1LD 04/11/2020 2. UDS-LAB WC / NF ([facility] Urine Drug Screen); [Do Not Release]; Specimen Source:Urine; Status:In Progress - Specimen/Data Collected; Done: 65Sgt1965 In my opinion based on subjective and objective findings from today's visit the patient is status quo. Medication:. Medication list was reviewed with the patient, and updates were made to reflect her current medication regimen. Allergy list was reviewed with patient, and any necessary changes were made. [facility] ELECTRICAL ENGINEER MEP Information: ELECTRICAL ENGINEER MEP was consulted by my designee and I have reviewed the information presented to me and find no aberrant compliance issues. Patient has been informed. General Medications Prescribed: TIZANIDINE, TOPIRAMATE . GENERAL MEDICATIONS: I advised the patient today/previously regarding treatment with the above medication(s). The risks, benefits, common side effects and alternative treatments were discussed with the patient. The provider verbalized with the patient. The patient verbalized understanding and was told to call if there were any untoward effects. Controlled Substance Prescribed: HYDROCODONE . CONTROLLED SUBSTANCE INFORMATION: I advised the patient today/previously regarding treatment with the above controlled substance and/or narcotic. The patient was then informed of the risks, benefits, and alternatives of the narcotic. The risks discussed included but were not limited to physical and/or psychological dependence, tolerance of the medication, drowsiness, sleepiness, lisbeth nce/coordination problems, confusion, allergic reaction or any other abnormal symptoms. The patient was advised and agreed to use the medication only as prescribed, and not to drive, or operate heavy equipment or machinery. The patient understood and consented to both undergo a narcotic/opiate regimen and agreed to sign and comply with all of the [facility] terms of a controlled substance treatment and agreement.Antidepressants Prescribed: DULOXETINE . ANTI-DEPRESSANT: I advised the patient today/previously regarding treatment with the above antidepressant(s). Patient is aware of rare but serious risk of potential suicidal thoughts, worsening depression, and/or serotonin syndrome. Patient agrees to discontinue medication and to contact [facility], friend(s) or family member(s), and/or 1 if this occurs. The patient is on the lowest possible dose of opioids. The patient denies adverse side effects and does not demonstrate any aberrant drug taking behaviors. The patient is able to perform ADL's including the following activities for longer periods of time with less pain: activities of daily living, sleeping, walking, standing, sitting, grocery shopping . There are no changes in current medications at this visit. Patient instructed to continue current regimen. The prescribed medications are medically necessary for pain management and rehabilitation. UDS: This is an established patient and is on ongoing opioid therapy. A UDS is being obtained today, the patient has previously consented to UDS as part of the Controlled Substance and Treatment Agreement. The reason for today's UDS is: patient was selected at random and scored as high risk on the opioid risk assessment. Creatinine has been ordered as well for specimen validity, not for kidney function. Preliminary UDS results are not final and should not be used to determine patient care or plan of treatment. Initially a qualitative immunoassay screen will be done. Any positive findings or negative findings that are out of compliance will be further tested with a more comprehensive quantitative confirmation LCMS study. It is part of the normal prescribing protocol of controlled substances and is considered standard of care. Treatment includes: PROCEDURE(S): The patient defers blocks/procedures at this time FOLLOW UP: The patient should have a follow up visit in 2 months. The patient should have a follow up 30 Day RX. CONTINUE TREATMENT: Jena will continue with the following:. Patient will follow up with their PCP. Jena is participating in a home exercise program and is encouraged to continue. Miscellaneous: - WEIGHT LOSS: Weight loss was discussed and encouraged. 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 Discussion/SummaryPleasant 49 year-old female with chronic left leg pain with subsequent CRPS. She is currently medicinally managed with Hydrocodone, Tizanidine, Topiramate and Duloxetine. These medications are tolerable and effective. She has a SCS that was reprogrammed today. She defers nerve blocks/injections/therapies. She will follow up in 30 days for a medication visit. Work / School NotePATIENT: if you submit this to your employer as an out of work note please be aware this includes PHI (Protected Health Information). The incident described by the patient is a competent medical cause of this injury. The patient's complaints are consistent with the history of the injury/illness. The patient's history of the injury/illness is consistent with my objective findings. The patient is not working at this time. Patient is on permanent disability. Disability rating is 67 %. Signatures Electronically signed by : Denise Sharpe NP; Apr 14 2020 3:32PM EST (Author) Electronically signed by : Judy Pretty MD; Apr 15 2020 8:56AM EST Name Value Range Interpretation Code Description Data Melissa rce(s) Supporting Document(s) ID Date Data Source [id number] 03/25/2020 12:28:51 PM EDT [address] [id number] Name: JENA CLOUDDOB: 1970Sex: FOrdering Provider: MAMIE NEELYuthelisha Prov: MAMIE HERNANDEZYReferrhans Provider: MAMIE LEALrocjennifer Performed: MRI CERVICAL SPINE WO CONTRASTExam Date: 03/25/2020 12:09MRN: [id number] Number: [id number] Class: OutpatientAccount #: [id number] for Exam: Neck pain, prior surgery, neg xrayC-spine stenosisAbn xray, C-spine, DJDTechnique: MRI images obtained on a 1.5 ada scanner.Comparison: May 13, 2019 MR cervical spine.No contrast was used.Findings: The study is suboptimal due to motion artifact.Patient status post ACDF with interbody fusion of the C5-6 and C6-7 discs. The vertebral bodies are normal in height and alignment with straightening seen of the normal lordosis. No disc space narrowing is seen. The bone marrow signal intensity appears unremarkable.The medullocervical junction and the entire cervical spinal cord appears normal in size and signal intensity. The craniocervical junction and the vertebral artery flow voids appear unremarkable.C2-3 disc level: No disc or foraminal abnormality is seen.C3-4 disc level: A disc osteophyte complex is seen which touches the spinal cord with minimal flattening. No foraminal abnormality is seen.C4-5 disc level: A disc bulge is seen with a central disc protrusion not touching the spinal cord. No foraminal abnormality is seen.C5-6 disc level: No significant disc or foraminal abnormality is seen.C6-7 disc level: A disc osteophyte complex is seen not touching the spinal cord. Mild to moderate narrowing is seen of the left neural foramen with unremarkable appearance of the right neural foramen.C7-T1 disc level: No disc or foraminal abnormality is seen.The paravertebral soft tissues appear unremarkabl e.IMPRESSION: Cervical spondylosis worse at C3-4 with minimal flattening of the spinal cord.Report electronically signed by: DAWNA DOMINGO On 03/25/2020 12:28 PMWorkstation ID: [id number] - [id number] Name Value Range Interpretation Code Description Data Melissa rce(s) Supporting Document(s) ID Date Data Source [id number] 03/25/2020 11:01:55 AM EDT [address] [id number] Name: JENA CLOUDDOB: 1970Sex: FOrdering Provider: MAMIE NEELYuthorizing Prov: MAMIE HERNANDEZYReferring Provider: MAMIE LEALrocedure Performed: MRI THORACIC SPINE WO CONTRASTExam Date: 03/25/2020 10:39MRN: [id number] Number: [id number] Class: OutpatientAccount #: [id number] for Exam: tumorTechnique: MRI images obtained on a 1.5 ada scanner.Comparison: May 13, 2019 MR thoracic spine.Findings: Again seen is an expanded thoracic spinal cord at the T8 vertebral level with intramedullary T2 signal hyperintensity extending from the T7-8 to the T8-9 disc level. The spinal cord is expanded to 7 mm in AP dimension, unchanged. The remainder of the thoracic spinal cord is normal in signal intensity.The vertebral bodies are normal in height and alignment with a normal kyphosis seen. A probable hemangioma in the T8 vertebral body is unchanged. No significant disc space narrowing is seen. No significant disc or foraminal abnormality is seen. Postsurgical changes are seen spinous process region at T11-12 extending superiorly in the dorsal aspect of the spinal canalThe paravertebral soft tissu es appear unremarkable.IMPRESSION: Stable appearance of an expanded thoracic spinal cord at the T8 vertebral level with intramedullary signal hyperintensity.Report electronically signed by: DAWNA DOMINGO On 03/25/2020 11:01 AMWorkstation ID: [id number] - [id number] Name Value Range Interpretation Code Description Data Melissa rce(s) Supporting Document(s) ID Date Data Source [id number] 03/09/2020 03:27:39 PM EDT [facility], PCName: Kristen CloudDOB: 1970Provider: Bhargavi SharpeaDOS: 03/09/2020 Chief Complaintchronic left leg pain Chief Complaint 2NYSW Telemedicine - Explanation to patient regarding Telemedicine: Explanation to patient regarding telemedicine Patient initiated contact with the office via phone call or via patient portal to schedule a Telehealth visit. I explained to the patient that telemedicine is the practice of using telecommunications technology to evaluate, diagnose and care for patients at a distance. Telehealth visits are a way for [facility] to continue providing quality care to our patients while still practicing mandated social distancing, in emergency effort to keep both the patient and myself safe throughout the COVID- 19 pandemic. During this emergent initiation of Telemedicine, the office of civil rights has loosened the laws on HIPAA compliance to accommodate the continuation of medical care across the [place] throughout the COVID-19 pandemic. [facility] Telemedicine - TV Consent Established: Telehealth Consent Jena Cloud is an established patient of [facility], and was made aware co-pays and co-insurance may be waived by their insurer due to COVID-19, as well as, the potential privacy risks with the use of third-constitution party applications as a result of this Telehealth visit. The patient has verbalized consent to proceed with a Telehealth visit via audio with live video calling. Location of Provider and Patient for this telehealth visit: Provider is located at my residence in [facility] Patient is located at home, in [place], [place] The following were present during this visit: patient was alone Application used for the telehealth visit: [email or web address] History of Present IllnessRecent test/procedures: Patient was asked and denies having any tests since their last visit. Patient was asked and denies being seen by any Physicians since their last visit. The patient was last seen by a [facility] provider on 02/07/2020 telehealth. Patient is not currently working. The patient is being seen for a workers compensation follow- up. The workers compensation date of injury is 03/09/2004. Pain Quality: (Neuropathic) burning and pain changes with weather Pain Quality: (Nociceptive) aching Timing: constant Progression: unchanged Palliation: non-opioid analgesics, opioid analgesics and "being off of leg Exacerbating: standing, walking and weather Pain Score: a current pain level of 5/10, a minimum pain level of 3/10 and a maximum pain level of 10/10. Condition type: The patient is being seen for a chronic condition. INJURY SETTING: at work. INJURY MECHANISM: The injury resulted from trauma. PAIN LOCATION: (left leg ). REVIEW OF PAST DIAGNOSTICS: have included: MRI, x-rays, electromyography/nerve conduction studies and spinal cord stimulator . Records were obtained, reviewed and on file. PAST TREATMENT has included: ANTICONVULSANTS (effective) Includes Topamax., ANTIDEPRESSANTS (effective) Includes Cymbalta . helps pain at least 75%., MUSCLE RELAXANTS (effective) Includes Tizanidine . helps at least 50%., OPIOID ANALGESICS (effective) Includes Hydrocodone . uses sparingly, helps sleep 60%. The trialing of opioid therapy has resulted in: at least a 30% reduction in the patient's VAS score (3pts). Improvement in function as evidence by: increase in ADL's INTERVAL EVENTS: include no significant change impacting patients medical condition. ASSOCIATED SYMPTOMS: include difficulty walking and extremity weakness: , but no fecal incontinence and no urinary incontinence. FUNCTIONAL LIMITATIONS: The patient's functional status is limited as follows: ability to work. MEDICATION SIDE EFFECTS experienced by patient are: no known medication side effects. Review of SystemsROS was reviewed with patient; I feel the ROS to be negative/normal other than Left knee and left leg. Patient maintains at today's visit there has been no change in his/her hematologic history. Active Problems 1. Acute thoracic back pain (724.1) (M54.6) 2. 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 Complex regional pain syndrome type 1 of left lower extremity (337.22) (G90.522) 4. CRPS (complex regional pain syndrome) (355.9) 5. CRPS (complex regional pain syndrome), lower limb (337.22) (G90.529) 6. Encounter for long-term (current) use of medications (V58.69) (Z79.899) 7. 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 Lumbar radiculitis (724.4) (M54.16) 11. Other chronic pain (338.29) (G89.29) 12. Pain in unspecified limb (729.5) (M79.609) 13. Reflex sympathetic dystrophy of lower extremity (337.22) (G90.529) Allergies Iodinated Contrast Media Hives; Shortness of breath;; Updated By: Hannah Costa; 04/03/2012 11:46:50 AM Sulfa Drugs Hives;; Updated By: Hannah Costa; 04/03/2012 11:46:50 AM Amitriptyline HCl TABS mouth sores; Updated By: Hannah Costa; 04/03/2012 11:46:50 AM Amoxicillin TABS Rash; Recorded By: Valorie Ramírez; 03/09/2015 12:57:40 PM Depakote Headache; Recorded By: Valorie Ramírez; 03/09/2015 12:57:40 PM Inderal unknown; Recorded By: Valorie Ramírez; 03/09/2015 12:57:40 PM Lyrica CAPS black spots/eye pain; Updated By: Hannah Costa; 04/03/2012 11:46:50 AM Neurontin TABS mouth sores; Updated By: Hannah Csota; 04/03/2012 11:46:50 AM riboflavin mouth sores; Recorded By: Valorie Ramírez; 03/09/2015 12:57:40 PM gabapentin Recorded By: Vick Cantu; 07/21/2017 12:50:25 PM Adhesive Tape Updated By: Hannah Costa; 04/03/2012 11:46:50 AM Latex Updated By: Hannah Costa; 04/03/2012 11:46:50 AM Current Meds Bydureon 2 MG Subcutaneous Pen-injector;Therapy: 43Ymm9920 to Recorded DULoxetine HCl - 60 MG Oral Capsule Delayed Release Particles; TAKE 1 CAPSULEDAILY. MDD:1;Therapy: 22Dec2011 to (Evaluate:38Vkd2663) Requested for: 16Jan2020; LastRx:16Jan2020; Status: ACTIVE - Transmit to Pharmacy - Awaiting Verification Ordered Fluticasone Propionate 50 MCG/ACT Nasal Suspension;Therapy: 17Sep2012 to Recorded HYDROcodone-Acetaminophen 5-325 MG Oral Tablet; one po daily prn pain MDD:1;Therapy: 05Jul2012 to (Evaluate:02Feb2020) Requested for: 03Jan2020; LastRx:03Jan2020 OrderedLD 1- 2wks ago hydrOXYzine HCl - 25 MG Oral Tablet; Take 3 at bedtime;Therapy: 72Gck7710 to Recorded Levocetirizine Dihydrochloride 5 MG Oral Tablet;Therapy: (Recorded:37Oax9669) to Recorded metFORMIN HCl - 1000 MG Oral Tablet;Therapy: 02Jan2013 to Recorded Montelukast Sodium 10 MG Oral Tablet;Therapy: 36Vex3786 to Recorded Multi Vitamin/Minerals TABS;Therapy: (Recorded:19Nuh6751) to Recorded PriLOSEC 40 MG CPDR;Therapy: (Recorded:15Jan2016) to Recorded Simvastatin 20 MG Oral Tablet;Therapy: (Recorded:14Aug2019) to Recorded tiZANidine HCl - 2 MG Oral Tablet; TAKE 1-2 TABLETS AT HS NEEDED FOR SPASMMDD:2;Therapy: 14Nov2012 to (Evaluate:15Mar2020) Requested for: 60Nkm3472; LastRx:17Sep2019 Ordered Topiramate 50 MG Oral Tablet; ONE PO EVERY HS MDD:1;Therapy: 22Dec2011 to (Evaluate:15Mar2020) Requested for: 69Mwx0359; LastRx:17Sep2019 Ordered Toujeo SoloStar 300 UNIT/ML Subcutaneous Solution Pen- injector;Therapy: 27Dec2017 to RecordedFormulary Override Reason: No Formulary Equivalent Exists traZODone HCl - 100 MG Oral Tablet;Therapy: 27Gpf6377 to Recorded Vitamin C TABS;Therapy: (Recorded:23Xhm3532) to Recorded ZyrTEC Allergy 10 MG Oral Tablet;Therapy: 65Xmx5019 to Recorded Past Medical History Denied: History of Currently Denied: History of Depression Denied: History of blood coagulation disorder History of diabetes mellitus (V12.29) (Z86.39) History of Reflex sympathetic dystrophy of lower extremity (337.22) (G90.529) History of Sinus Tachycardia (427.89) Denied: History of Taking Blood Thinners Surgical History History of Foot Surgery History of Gastric Surgery For Morbid Obesity Bypass With Caitlin-en-Y Denied: History of Implantable Cardioverter-Defibrillator History of Neck Surgery fusion History of Neuroplasty Decompression Median Nerve At Carpal Tunnel History of Neuroplasty Of Ulnar Nerve Left Hand Denied: History of Permanent Pacemaker Type History of Tonsillectomy History of Wrist Surgery Family History Family history of Arthritis (V17.7) Family history of Cancer Family history of Diabetes Mellitus (V18.0) Family history of Hypertension (V17.49) Family history of Cancer Family history of Diabetes Mellitus (V18.0) Family history of Heart Disease (V17.49) Family history of Hypertension (V17.49) Family history of Hypertension (V17.49) Family history of Hypertension (V17.49) Family history of Cancer Family history of Diabetes Mellitus (V18.0) Family history of Cancer Family history of Diabetes Mellitus (V18.0) Family history of Arthritis (V17.7) Family history of Cancer Family history of Diabetes Mellitus (V18.0) Family history of Heart Disease (V17.49) Family history of Hypertension (V17.49) Social History Current non-drinker of alcohol (V49.89) (Z78.9) 2o1658 Denied: History of Drug Use Former smoker (V15.82) (Z87.891) Marital History - Currently Not Currently Employed Physical ExamGeneral: The patient is a well nourished/well developed, female, who is obese, who is in no acute distress and appears stated age. Eyes: Lids are atraumatic, no lesions, sclerae are anicteric. Ears, Nose, Mouth, Throat: external ears and nose without trauma. Respiratory: Normal chest expansion and respiratory effort. Psychological: Alert and oriented to person, place and time. Mood and affect are pleasant and appropriate. Judgement intact. Insight normal without delusions or hallucinations. Denies suicidal/homicidal ideation. Res ults/DataThis patient had a urine drug screen on 08/14/2019. Results are in compliance. Assessment 1. 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 Other chronic pain (338.29) (G89.29) 3. Leg pain, diffuse, left (729.5) (M79.605) 4. Complex regional pain syndrome type 1 of left lower extremity (337.22) (G90.522) Plan 1. Renew: HYDROcodone-Acetaminophen 5-325 MG Oral Tablet ([place]); one po daily prn pain MDD:1LD 1-2wks ago 2. Follow-up in 1 month Follow Up Follow-up Status: Hold For - Scheduling Requested for: [id number] Appointment for 15 or 30 minutes : Schedule 15 minute appointment In my opinion based on subjective and objective findings from today's visit the patient is status quo. Medication:. Due to the current COVID-19 pandemic, telemedicine does not allow for the collection of urine drug screening for initiation or chronic use of opioid medications. Patient will be subject to urine drug screening at next in-office visit. Medication list was reviewed with the patient, and updates were made to reflect her current medication regimen. Allergy list was reviewed with patient, and any necessary changes were made. [facility] ELECTRICAL ENGINEER MEP Information: ELECTRICAL ENGINEER MEP was consulted by my designee and I have reviewed the information presented to me and find no aberrant compliance issues. Patient has been informed. General Medications Prescribed: TIZANIDINE, TOPIRAMATE . GENERAL MEDICATIONS: I advised the patient today/previously regarding treatment with the above medication(s). The risks, benefits, common side effects and alternative treatments were discussed with the patient. The provider verbalized with the patient. The patient verbalized understanding and was told to call if there were any untoward effects. Controlled Substance Prescribed: HYDROCODONE . CONTROLLED SUBSTANCE INFORMATION: I advised the patient today/previously regarding treatment with the above controlled substance and/or narcotic. The patient was then informed of the risks, benefits, and alternatives of the narcotic. The risks discussed included but were not limited to physical and/or psychological dependence, tolerance of the medication, drowsiness, sleepiness, balance/coordination problems, confusion, allergic reaction or any other abnormal symptoms. The patient was advised and agreed to use the medication only as prescribed, and not to drive, or operate heavy equipment or machinery. The patient understood and consented to both undergo a narcotic/opiate regimen and agreed to sign and comply with all of the [facility] terms of a controlled substance treatment and agreement.Antidepressants Prescribed: DULOXETINE . ANTI- DEPRESSANT: I advised the patient today/previously regarding treatment with the above antidepressant(s). Patient is aware of rare but serious risk of potential suicidal thoughts, worsening depression, and/or serotonin syndrome. Patient agrees to discontinue medication and to contact [place], friend(s) or family member(s), and/or 1 if this occurs. The patient is on the lowest possible dose of opioids. The patient denies adverse side effects and does not demonstrate any aberrant drug taking behaviors. The patient is able to perform ADL's including the following activities for longer periods of time with less pain: activities of daily living, sleeping, walking, standing, sitting, grocery shopping . There are no changes in current medications at this visit. Patient instructed to continue current regimen. The prescribed medications are medically necessary for pain management and rehabilitation. Treatment includes: PROCEDURE(S): The patient defers blocks/procedures at this time THERAPIES: Therapy Treatment Plan: Deferred: All Therapies: Deferred: per patient request. FOLLOW UP: The patient should have a follow up visit in 1 month. CONTINUE TREATMENT: Jena will continue with the following:. Jena is participating in a home exercise program and is encouraged to continue. 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 TIme:. Time: Start time: 1:43 P.M. End time: 1:53. P.M. Discussion/SummaryPatient was seen for telehealth visit today through a live video call via [employer]. Jena is a very pleasant 49 year-old female with chronic left leg pain with subsequent CRPS. She denies any changes in her medical history, surgical history, medications or allergies. She is status quo currently managing her pain medicinally with Hydrocodone, Duloxetine, Tizanidine and Topiramate. These medications are tolerable and effective and enable her to independently engage in her ADL's, cook, do house chores, spend time with her grandson and be able to do daily activities. She defers nerve blocks/injections. She will continue with her prescribed meds and encouraged to engage in HEP. She will follow up in 1 months as required at this time. denies any recent or current fever, cough, or shortness of breath. She reports fatigue that is due to lack of sleep. Her pain changes with the weather and today she reports a pain level of 8/10. She is currently medicinally managed with duloxetine, ties tizanidine, topiramate and hydrocodone and these medications are tolerable and effective and enable her to get her pain level down to a 3/10 from a 10/10. She defers nerve block/injections/therapies. She was encouraged to continue with her prescribed medications and HEP. She will follow up in 1 month as required at this time. Work / School NotePATIENT: if you submit this to your employer as an out of work note please be aware this includes PHI (Protected Health Information). The incident described by the patient is a competent medical cause of this injury. The patient's complaints are consistent with the history of the injury/illness. The patient's history of the injury/illness is consistent with my objective findings. The patient is not working at this time. Patient is on permanent disability. Disability rating is 67 %. Motivating Wellness Disclaimer[place] Motivating Wellness Disclaimer: This document was dictated and electronically signed using [employer]or[employer] software. A reasonable attempt at proof reading has been made to minimize errors. Please call with any questions. Signatures Electronically signed by : Denise Sharpe NP; Mar 09 2020 1:58PM EST (Author) Electronically signed by : Viktor Wick MD; Mar 09 2020 3:27PM EST Name Value Range Interpretation Code Description Data Melissa rce(s) Supporting Document(s) ID Date Data Source [id number] 02/07/2020 06:19:27 PM EDT [facility], PCName: Kristen noé LolitaB: 1970Provider: Kingsley Sharpe: 02/07/2020 Chief Complaintchronic left leg pain Chief Complaint 2[facility] Telemedicine - Explanation to patient regarding Telemedicine: Explanation to patient regarding telemedicine Patient initiated contact with the office via phone call or via patient portal to schedule a Telehealth visit. I explained to the patient that telemedicine is the practice of using telecommunications technology to evaluate, diagnose and care for patients at a distance. Telehealth visits are a way for [facility] to continue providing quality care to our patients while still practicing mandated social distancing, in emergency effort to keep both the patient and myself safe throughout the COVID- 19 pandemic. During this emergent initiation of Telemedicine, the office of civil rights has loosened the laws on HIPAA compliance to accommodate the continuation of medical care across the [place] throughout the COVID-19 pandemic. [facility] Telemedicine - TV Consent Established: Telehealth Consent Jena Cloud is an established patient of [facility], and was made aware co-pays and co-insurance are waived due to COVID-19, as well as, the potential privacy risks with the use of third-constitution party applications as a result of this Telehealth visit. The patient has verbalized consent to proceed with a Telehealth visit via audio with live video calling. Location of Provider and Patient for this telehealth visit: Provider is located at my residence in [facility] Patient is located at home, in [place], [place] The following were present during this visit: patient was alone Application used for the telehealth visit: [email or web address] History of Present IllnessRecent test/procedures: Patient was asked and denies having any tests since their last visit. Patient was asked and denies being seen by any Physicians since their last visit. The patient was last seen by a [facility] provider on 01/03/2020. Patient is not currently working. The patient is being seen for a workers compensation follow-up. The workers compensation date of injury is 03/09/2004. Pain Quality: (Neuropathic) burning and pain changes with weather Pain Quality: (Nociceptive) aching, dull, sharp and stabbing Timing: constant Progression: unchanged Palliation: non- opioid analgesics, opioid analgesics and "staying off of it" Exacerbating: standing, walking and weather Pain Score: a current pain level of 8/10, a minimum pain level of 3/10 and a maximum pain level of 10/10. Condition type: The patient is being seen for a chronic condition. INJURY SETTING: at work. IN JURY MECHANISM: The injury resulted from trauma. PAIN LOCATION: (left leg ). REVIEW OF PAST DIAGNOSTICS: have included: MRI, x-rays, electromyography/nerve conduction studies and spinal cord stimulator . Records were obtained, reviewed and on file. PAST TREATMENT has included: ANTICONVULSANTS (effective) Includes Topamax., ANTIDEPRESSANTS (effective) Includes Cymbalta . helps pain at least 75%., MUSCLE RELAXANTS (effective) Includes Tizanidine . helps at least 50%., OPIOID ANALGESICS (effective) Includes Hydrocodone . uses sparingly, helps sleep 60%. The trialing of opioid therapy has resulted in: at least a 30% reduction in the patient's VAS score (3pts). Improvement in function as evidence by: increase in ADL's INTERVAL EVENTS: include no significant change impacting patients medical condition. ASSOCIATED SYMPTOMS: include difficulty walking and extremity weakness: , but no fecal incontinence and no urinary incontinence. FUNCTIONAL LIMITATIONS: The patient's functional status is limited as follows: ability to work. MEDICATION SIDE EFFECTS experienced by patient are: no known medication side effects. Review of SystemsROS was reviewed with patient; I feel the ROS to be negative/normal other than leg and knee pain. Patient maintains at today's visit there has been no change in his/her hematologic history. Active Problems 1. Acute thoracic back pain (724.1) (M54.6) 2. 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 Complex regional pain syndrome type 1 of left lower extremity (337.22) (G90.522) 4. CRPS (complex regional pain syndrome) (355.9) 5. CRPS (complex regional pain syndrome), lower limb (337.22) (G90.529) 6. Encounter for long-term (current) use of medications (V58.69) (Z79.899) 7. Leg pain, diffuse, left (729.5) (M79.605) 8. prison (current) use of opiate analgesic (V58.69) (Z79.891) 9. prison current use of opiate analgesic (V58.69) (Z79.891) 10. Lumbar radiculitis (724.4) (M54.16) 11. Other chronic pain (338.29) (G89.29) 12. Pain in unspecified limb (729.5) (M79.609) 13. Reflex sympathetic dystrophy of lower extremity (337.22) (G90.529) Allergies Iodinated Contrast Media Hives; Shortness of breath;; Updated By: Hannah Costa; 04/03/2012 11:46:50 AM Sulfa Drugs Hives;; Updated By: Hannah Costa; 04/03/2012 11:46:50 AM Amitriptyline HCl TABS mouth sores; Updated By: Hannah Costa; 04/03/2012 11:46:50 AM Amoxicillin TABS Rash; Recorded By: Valorie Ramírez; 03/09/2015 12:57:40 PM Depakote Headache; Recorded By: Valorie Ramírez; 03/09/2015 12:57:40 PM Inderal unknown; Recorded By: Valorie Ramírez; 03/09/2015 12:57:40 PM Lyrica CAPS black spots/eye pain; Updated By: Hannah Costa; 04/03/2012 11:46:50 AM Neurontin TABS mouth sores; Updated By: Hannah Costa; 04/03/2012 11:46:50 AM riboflavin mouth sores; Recorded By: Valorie Ramírez; 03/09/2015 12:57:40 PM gabapentin Recorded By: Vick Cantu; 07/21/2017 12:50:25 PM Adhesive Tape Updated By: Hannah Costa; 04/03/2012 11:46:50 AM Latex Updated By: Hannah Costa; 04/03/2012 11:46:50 AM Current Meds Bydureon 2 MG Subcutaneous Pen-injector;Therapy: [id number] to Recorded DULoxetine HCl - 60 MG Oral Capsule Delayed Release Particles; TAKE 1 CAPSULEDAILY. MDD:1;Therapy: 22Dec2011 to (Evaluate:77Mlf5515) Requested for: 16Jan2020; LastRx:16Jan2020; Status: ACTIVE - Transmit to Pharmacy - Awaiting Verification Ordered Fluticasone Propionate 50 MCG/ACT Nasal Suspension;Therapy: 23Fak9427 to Recorded HYDROcodone-Acetaminophen 5-325 MG Oral Tablet; one po daily prn pain MDD:1;Therapy: 87Qqj7769 to (Evaluate:17Nuz8856) Requested for: 03Jan2020; LastRx:03Jan2020 OrderedLD 1- 2wks ago hydrOXYzine HCl - 25 MG Oral Tablet; Take 3 at bedtime;Therapy: 57Ruq6763 to Recorded Levocetirizine Dihydrochloride 5 MG Oral Tablet;Therapy: (Recorded:50Vtr2341) to Recorded metFORMIN HCl - 1000 MG Oral Tablet;Therapy: 02Jan2013 to Recorded Montelukast Sodium 10 MG Oral Tablet;Therapy: 17Qgn2785 to Recorded Multi Vitamin/Minerals TABS;Therapy: (Recorded:02Dbu8770) to Recorded PriLOSEC 40 MG CPDR;Therapy: (Recorded:76Lue4999) to Recorded Simvastatin 20 MG Oral Tablet;Therapy: (Recorded:14Aug2019) to Recorded tiZANidine HCl - 2 MG Oral Tablet; TAKE 1-2 TABLETS AT HS NEEDED FOR SPASMMDD:2;Therapy: 51Bkr5485 to (Evaluate:15Mar2020) Requested for: 53Dvk7017; LastRx:18Mhb0761 Ordered Topiramate 50 MG Oral Tablet; ONE PO EVERY HS MDD:1;Therapy: 22Dec2011 to (Evaluate:15Mar2020) Requested for: 52Qcm9108; LastRx:05Yiw9093 Ordered Toujeo SoloStar 300 UNIT/ML Subcutaneous Solution Pen- injector;Therapy: 27Dec2017 to RecordedFormulary Override Reason: No Formulary Equivalent Exists traZODone HCl - 100 MG Oral Tablet;Therapy: 24Elr2665 to Recorded Vitamin C TABS;Therapy: (Recorded:63Anc2324) to Recorded ZyrTEC Allergy 10 MG Oral Tablet;Therapy: 71Npj2188 to Recorded Past Medical History Denied: History of Currently Denied: History of Depression Denied: History of blood coagulation disorder History of diabetes mellitus (V12.29) (Z86.39) History of Reflex sympathetic dystrophy of lower extremity (337.22) (G90.529) History of Sinus Tachycardia (427.89) Denied: History of Taking Blood Thinners Surgical History History of Foot Surgery History of Gastric Surgery For Morbid Obesity Bypass With Caitlin-en-Y Denied: History of Implantable Cardioverter-Defibrillator History of Neck Surgery fusion History of Neuroplasty Decompression Median Nerve At Carpal Tunnel History of N europlasty Of Ulnar Nerve Left Hand Denied: History of Permanent Pacemaker Type History of Tonsillectomy History of Wrist Surgery Family History Family history of Arthritis (V17.7) Family history of Cancer Family history of Diabetes Mellitus (V18.0) Family history of Hypertension (V17.49) Family history of Cancer Family history of Diabetes Mellitus (V18.0) Family history of Heart Disease (V17.49) Family history of Hypertension (V17.49) Family history of Hypertension (V17.49) Family history of Hypertension (V17.49) Family history of Cancer Family history of Diabetes Mellitus (V18.0) Family history of Cancer Family history of Diabetes Mellitus (V18.0) Family history of Arthritis (V17.7) Family history of Cancer Family history of Diabetes Mellitus (V18.0) Family history of Heart Disease (V17.49) Family history of Hypertension (V17.49) Social History Current non-drinker of alcohol (V49.89) (Z78.9) [id number] Denied: History of Drug Use Former smoker (V15.82) (Z87.891) Marital History - Currently Not Currently Employed Physical ExamGeneral: The patient is a well nourished/well developed, female, who is obese, who is in no acute distress and appears stated age. Eyes: Lids are atraumatic, no lesions, sclerae are anicteric. Ears, Nose, Mouth, Throat: external ears and nose without trauma. Respiratory: Normal chest expansion and respiratory effort. Psychological: Alert and oriented to person, place and time. Mood and affect are pleasant and appropriate. Judgement intact. Insight normal without delusions or hallucinations. Denies suicidal/homicidal ideation. Patient observed sitting upright on sofa during this live video call. Results/DataThis patient had a urine drug screen on 08/24/2019. Results are in compliance. Assessment 1. Complex regional pain syndrome type 1 of left lower extremity (337.22) (G90.522) 2. Leg pain, diffuse, left (729.5) (M79.605) 3. Other chronic pain (338.29) (G89.29) Plan 1. Follow-up in 1 month Follow Up Follow-up Status: Hold For - Scheduling Requested for: [id number] Appointment for 15 or 30 minutes : Schedule 15 minute appointment In my opinion based on subjective and objective findings from today's visit the patient is status quo. Medication:. Due to the current COVID-19 pandemic, telemedicine does not allow for the collection of urine drug screening for initiation or chronic use of opioid medications. Patient will be subject to urine drug screening at next in-office visit. Medication list was reviewed with the patient, and updates were made to reflect her current medication regimen. Allergy list was reviewed with patient, and any necessary changes were made. [facility] ELECTRICAL ENGINEER MEP Information: ELECTRICAL ENGINEER MEP was consulted by my designee and I have reviewed the information presented to me and find no aberrant compliance issues. Patient has been informed. General Medications Prescribed: TIZANIDINE, TOPIRAMATE . GENERAL MEDICATIONS: I advised the patient today/previously regarding treatment with the above medication(s). The risks, benefits, common side effects and alternative treatments were discussed with the patient. The provider verbalized with the patient. The patient verbalized understanding and was told to call if there were any untoward effects. Controlled Substance Prescribed: HYDROCODONE . CONTROLLED SUBSTANCE INFORMATION: I advised the patient today/previously regarding treatment with the above controlled substance and/or narcotic. The patient was then informed of the risks, benefits, and alternatives of the narcotic. The risks discussed included but were not limited to physical and/or psychological dependence, tolerance of the medication, drowsiness, sleepiness, balance/coordination problems, confusion, allergic reaction or any other abnormal symptoms. The patient was advised and agreed to use the medication only as prescribed, and not to drive, or operate heavy equipment or machinery. The patient understood and consented to both undergo a narcotic/opiate regimen and agreed to sign and comply with all of the [facility] terms of a controlled substance treatment and agreement.Antidepressants Prescribed: DULOXETINE . ANTI- DEPRESSANT: I advised the patient today/previously regarding treatment with the above antidepressant(s). Patient is aware of rare but serious risk of potential suicidal thoughts, worsening depression, and/or serotonin syndrome. Patient agrees to discontinue medication and to contact [facility], friend(s) or family member(s), and/or 1 if this occurs. The patient is on the lowest possible dose of opioids. The patient denies adverse side effects and does not demonstrate any aberrant drug taking behaviors. The patient is able to perform ADL's including the following activities for longer periods of time with less pain: activities of daily living, sleeping, walking, standing, sitting, grocery shopping . There are no changes in current medications at this visit. Patient instructed to continue current regimen. The prescribed medications are medically necessary for pain management and rehabilitation. Treatment includes: PROCEDURE(S): The patient defers blocks/procedures at this time THERAPIES: Therapy Treatment Plan: Deferred: All Therapies: Deferred: per patient request. FOLLOW UP: The patient should have a follow up visit in 1 month. CONTINUE TREATMENT: Jena will continue with the following:. Jena is participating in a home exercise program and is encouraged to continue. 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 TIme:. Time: Start time: 10:33 A.M. End time: 10:40 A.M. Discussion/SummaryPatient was seen for telehealth visit today to the use of live video calling via [employer]. Jena is a very pleasant 49 year-old female with chronic left leg pain with subsequent CRPS. She denies any changes in her medical history, surgical history, medications or allergies. She denies any recent or current fever, cough, or shortness of breath. She reports fatigue that is due to lack of sleep. Her pain changes with the weather and today she reports a pain level of 8/10. She is currently medicinally managed with duloxetine, ties tizanidine, topiramate and hydrocodone and these medications are tolerable and effective and enable her to get her pain level down to a 3/10 from a 10/10. She defers nerve block/injections/therapies. She was encouraged to continue with her prescribed medications and HEP. She will follow up in 1 month as required at this time. Work / School NotePATIENT: if you submit this to your employer as an out of work note please be aware this includes PHI (Protected Health Information). The incident described by the patient is a competent medical cause of this injury. The patient's complaints are consistent with the history of the injury/illness. The patient's history of the injury/illness is consistent with my objective findings. The patient is not working at this time. Patient is on permanent disability. Disability rating is 67 %. Motivating Wellness DisclaimerN[place]WC DragDynadmic Discl aimer: This document was dictated and electronically signed using [employer] Speaking software. A reasonable attempt at proof reading has been made to minimize errors. Please call with any questions. Signatures Electronically signed by : Denise Sharpe NP; Feb 07 2020 10:44AM EST (Author) Electronically signed by : Viktor Wick MD; Feb 07 2020 6:19PM EST Name Value Range Interpretation Code Description Data Melissa rce(s) Supporting Document(s) ID Date Data Source [id number] 01/05/2020 08:22:19 PM EDT [facility], PCName: Kristen CloudDOB: 1970Provider: Kingsley Sharpe: 01/03/2020 Chief Complaintchronic left leg pain Chief Complaint 2[place] VAS PAIN Established: SHANAE completing section: [facility] Telemedicine - Explanation to patient regarding Telemedicine: Explanation to patient regaridng telemedicine Patient initiated contact with the office via phone call or via patient portal to schedule a Telehealth visit. I explained to the patient that telemedicine is the practice of using telecommunications technology to evaluate, diagnose and care for patients at a distance. Telehealth visits are a way for [facility] to continue providing quality care to our patients while still practicing mandated social distancing, in emergency effort to keep both the patient and myself safe throughout the COVID-19 pandemic. During this emergent initiation of Telemedicine, the office of civil rights has loosened the laws on HIPAA compliance to accommodate the continuation of medical care across the [place] throughout the COVID-19 pandemic. [facility] Telemedicine - TV Consent Established: Telehealth Consent Jena Cloud is an established patient of [facility], and was made aware co-pays and co-insurance are waived due to COVID-19, as well as, the potential privacy risks with the use of third-constitution party applications as a result of this Telehealth visit. The patient has verbalized consent to proceed with a Tele health visit via audio with live video calling. History of Present IllnessSupplements: Patient is not currently taking any supplements. Nerve Conduction: Patient has not had a Nerve Conduction Test. Recent test/procedures: Patient was asked and denies having any tests since their last visit. Patient was asked and denies being seen by any Physicians since their last visit. The patient was last seen by a [facility] provider on 10/23/2019. At today's visit patient presents with their Self Patient is not currently working. The patient is being seen for a follow-up (Telehealth) The workers compensation date of injury is 03/09/2004. Pain Quality: "Feels like hammer is pounding on feet and legs". Pain Quality: (Neuropathic) burning and pain changes with weather Pain Quality: (Nociceptive) aching Timing: constant Progression: unchanged Palliation: opioid analgesics and "Being off of his legs and using spinal cord stimulator" Exacerbating: weather and "On legs" Pain Score: a current pain level of 8/10, a minimum pain level of 4/10 and a maximum pain level of 10/10. Condition type: The patient is being seen for a chronic condition. INJURY SETTING: at work. INJURY MECHANISM: The injury resulted from trauma. PAIN LOCATION: (left leg ). REVIEW OF PAST DIAGNOSTICS: have included: MRI, x-rays, electromyography/nerve conduction studies and spinal cord stimulator. PAST TREATMENT has included: ANTICONVULSANTS (effective) Includes Topamax., ANTIDEPRESSANTS (effective) Includes Cymbalta . helps pain at least 75%., MUSCLE RELAXANTS (effective) Includes Tizanidine . helps at least 50%., OPIOID ANALGESICS (effective) Includes Hydrocodone . uses sparingly, helps sleep 60%. INTERVAL EVENTS: include . She reports that her pain changes with col d weather. ASSOCIATED SYMPTOMS: include difficulty walking and extremity weakness: , but no fecal incontinence and no urinary incontinence. FUNCTIONAL LIMITATIONS: The patient's functional status is limited as follows: ability to work. MEDICATION SIDE EFFECTS experienced by patient are: no known medication side effects. Review of SystemsROS was reviewed with patient; I feel the ROS to be negative/normal other than Ocular skeletal. Patient maintains at today's visit there has been no change in his/her hematologic history. Active Problems 1. Acute thoracic back pain (724.1) (M54.6) 2. Algone urodystrophy, left lower leg (733.7) (M89.062) 3. Complex regional pain syndrome type 1 of left lower extremity (337.22) (G90.522) 4. CRPS (complex regional pain syndrome) (355.9) 5. CRPS (complex regional pain syndrome), lower limb (337.22) (G90.529) 6. Encounter for long-term (current) use of medications (V58.69) (Z79.899) 7. 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 Lumbar radiculitis (724.4) (M54.16) 11. Other chronic pain (338.29) (G89.29) 12. Pain in unspecified limb (729.5) (M79.609) 13. Reflex sympathetic dystrophy of lower extremity (337.22) (G90.529) Allergies Iodinated Contrast Media Hives; Shortness of breath;; Updated By: Hannah Costa; 04/03/2012 11:46:50 AM Sulfa Drugs Hives;; Updated By: Hannah Costa; 04/03/2012 11:46:50 AM Amitriptyline HCl TABS mouth sores; Updated By: Hannah Costa; 04/03/2012 11:46:50 AM Amoxicillin TABS Rash; Recorded By: Valorie Ramírez; 03/09/2015 12:57:40 PM Depakote Headache; Recorded By: Valorie Ramírez; 03/09/2015 12:57:40 PM Inderal unknown; Recorded By: Valorie Ramírez; 03/09/2015 12:57:40 PM Lyrica CAPS black spots/eye pain; Updated By: Hannah Costa; 04/03/2012 11:46:50 AM Neurontin TABS mouth sores; Updated By: Hannah Costa; 04/03/2012 11:46:50 AM riboflavin mouth sores; Recorded By: Valorie Ramírez; 03/09/2015 12:57:40 PM gabapentin Recorded By: Vick Cantu; 07/21/2017 12:50:25 PM Adhesive Tape Updated By: Hannah Costa; 04/03/2012 11:46:50 AM Latex Updated By: Hannah Costa; 04/03/2012 11:46:50 AM Current Meds Bydureon 2 MG Subcutaneous Pen-injector;Therapy: 22Ked5139 to Recorded DULoxetine HCl - 60 MG Oral Capsule Delayed Release Particles; TAKE 1 CAPSULEDAILY. MDD:1;Therapy: 22Dec2011 to (Evaluate:72Lsx0032) Requested for: 04Fbd7962; LastRx:[id number] Ordered Fluticasone Propionate 50 MCG/ACT Nasal Suspension;Therapy: 51Afy7427 to Recorded HYDROcodone-Acetaminophen 5-325 MG Oral Tablet; one po daily prn pain MDD:1;Therapy: 25Bgt4912 to (Evaluate:92Nll2550) Requested for: 36Bgr1614; LastRx:26Kkz1083 OrderedLD 1- 2wks ago hydrOXYzine HCl - 25 MG Oral Tablet; Take 3 at bedtime;Therapy: 2016 to Recorded Levocetirizine Dihydrochloride 5 MG Oral Tablet;Therapy: (Recorded:42Mmk1409) to Recorded metFORMIN HCl - 1000 MG Oral Tablet;Therapy: 02Jan2013 to Recorded Montelukast Sodium 10 MG Oral Tablet;Therapy: 72Fhk6090 to Recorded Multi Vitamin/Minerals TABS;Therapy: (Recorded:80Oaw5732) to Recorded PriLOSEC 40 MG CPDR;Therapy: (Recorded:15Jan2016) to Recorded Simvastatin 20 MG Oral Tablet;Therapy: (Recorded:14Aug2019) to Recorded tiZANidine HCl - 2 MG Oral Tablet; TAKE 1-2 TABLETS AT HS NEEDED FOR SPASMMDD:2;Therapy: 14Nov2012 to (Evaluate:15Mar2020) Requested for: 10Tru1606; LastRx:[id number] Ordered Topiramate 50 MG Oral Tablet; ONE PO EVERY HS MDD:1;Therapy: 22Dec2011 to (Evaluate:15Mar2020) Requested for: 61Scx3281; LastRx:07Csp4584 Ordered Toujeo SoloStar 300 UNIT/ML Subcutaneous Solution Pen- injector;Therapy: 27Dec2017 to RecordedFormulary Override Reason: No Formulary Equivalent Exists traZODone HCl - 100 MG Oral Tablet;Therapy: 14Sep2018 to Recorded Vitamin C TABS;Therapy: (Recorded:17Nig8473) to Recorded ZyrTEC Allergy 10 MG Oral Tablet;Therapy: 74Klx9295 to Recorded Past Medical History Denied: History of Currently Denied: History of Depression Denied: History of blood coagulation disorder History of diabetes mellitus (V12.29) (Z86.39) History of Reflex sympathetic dystrophy of lower extremity (337.22) (G90.529) History of Sinus Tachycardia (427.89) Denied: History of Taking Blood Thinners Surgical History History of Foot Surgery History of Gastric Surgery For Morbid Obesity Bypass With Caitlin-en-Y Denied: History of Implantable Cardioverter-Defibrillator History of Neck Surgery fusion History of Neuroplasty Decompression Median Nerve At Carpal Tunnel History of Neuroplasty Of Ulnar Nerve Left Hand Denied: History of Permanent Pacemaker Type History of Tonsillectomy History of Wrist Surgery Family History Family history of Arthritis (V17.7) Family history of Cancer Family history of Diabetes Mellitus (V18.0) Family history of Hypertension (V17.49) Family history of Cancer Family history of Diabetes Mellitus (V18.0) Family history of Heart Disease (V17.49) Family history of Hypertension (V17.49) Family history of Hypertension (V17.49) Family history of Hypertension (V17.49) Family history of Cancer Family history of Diabetes Mellitus (V18.0) Family history of Cancer Family history of Diabetes Mellitus (V18.0) Family history of Arthritis (V17.7) Family history of Cancer Family history of Diabetes Mellitus (V18.0) Family history of Heart Disease (V17.49) Family history of Hypertension (V17.49) Social History Current non-drinker of alcohol (V49.89) (Z78.9) [id number] Denied: History of Drug Use Former smoker (V15.82) (Z87.891) Marital History - Currently Not Currently Employed Physical Exa mGeneral: The patient is a well nourished/well developed, female, who is morbidly obese, who is in no acute distress and appears stated age. Eyes: Lids are atraumatic, no lesions, sclerae are anicteric. Ears, Nose, Mouth, Throat: external ears and nose without trauma. Respiratory: Normal chest expansion and respiratory effort. Psychological: Alert and oriented to person, place and time. Mood and affect are pleasant and appropriate. Judgement intact. Insight normal without delusions or hallucinations. Denies suicidal/homicidal ideation. Patient was observed sitting in rocking chair and rocking back and forth during this live video call. Results/DataThis patient had a urine drug screen on 08/14/2019. Results are in compliance. Based on last dose reported. Assessment 1. Leg pain, diffuse, left (729.5) (M79.605) 2. Other chronic pain (338.29) (G89.29) 3. Lumbar radiculitis (724.4) (M54.16) 4. CRPS (complex regional pain syndrome), lower limb (337.22) (G90.529) Plan 1. Renew: HYDROcodone-Acetamin ophen 5-325 MG Oral Tablet ([place]); one po daily prn pain MDD:1LD 1-2wks ago In my opinion based on subjective and objective findings from today's visit the patient is status quo. Medication:. Due to the current COVID-19 pandemic, telemedicine does not allow for the collection of urine drug screening for initiation or chronic use of opioid medications. Patient will be subject to urine drug screening at next in-office visit. [facility] ELECTRICAL ENGINEER MEP Information: ELECTRICAL ENGINEER MEP was consulted by my designee and I have reviewed the information presented to me and find no aberrant compliance issues. Patient has been informed. General Medications Prescribed: TIZANIDINE, TOPIRAMATE . GENERAL MEDICATIONS: I advised the patient today/previously regarding treatment with the above medication(s). The risks, benefits, common side effects and alternative treatments were discussed with the patient. The provider verbalized with the patient. The patient verbalized understanding and was told to call if there were any untoward effects. Controlled Substance Prescribed: HYDROCODONE . CONTROLLED SUBSTANCE INFORMATION: I advised the patient today/previously regarding treatment with the above controlled substance and/or narcotic. The patient was then informed of the risks, benefits, and alternatives of the narcotic. The risks discussed included but were not limited to physical and/or psychological dependence, tolerance of the medication, drowsiness, sleepiness, balance/coordination problems, confusion, allergic reaction or any other abnormal symptoms. The patient was advised and agreed to use the medication only as prescribed, and not to drive, or operate heavy equipment or machinery. The patient understood and consented to both undergo a narcotic/opiate regimen and agreed to sign and comply with all of the [facility] terms of a controlled substance treatment and agreement.Antidepressants Prescribed: DULOXETINE . ANTI- DEPRESSANT: I advised the patient today/previously regarding treatment with the above antidepressant(s). Patient is aware of rare but serious risk of potential suicidal thoughts, worsening depression, and/or serotonin syndrome. Patient agrees to discontinue medication and to contact [facility], friend(s) or family member(s), and/or 1 if this occurs. The patient is on the lowest possible dose of opioids. The patient denies adverse side effects and does not demonstrate any aberrant drug taking behaviors. The patient is able to perform ADL's including the following activities for longer periods of time with less pain: activities of daily living, sleeping, walking, standing, sitting, grocery shopping . There are no changes in current medications at this visit. Patient instructed to continue current regimen. The prescribed medications are medically necessary for pain management and rehabilitation. Medication list was reviewed with the patient, and updates were made to reflect her current medication regimen. Allergy list was reviewed with patient, and any necessary changes were made. Treatment includes: PROCEDURE(S): the patient defers blocks/procedures at this time FOLLOW UP: The patient should have a follow up visit in 1 month. CONTINUE TREATMENT: Jena will continue with the following:. Jena is participating in a home exercise program and is encouraged to continue. Miscellaneous: - WEIGHT LOSS: Weight loss was discussed and encouraged. - FRONT OFFICE ADMINISTRATOR: The patient was counseled on the following: treatment plan. TIme:. Time: Start time: 3:05 P.M. End time: 3:20. P.M. Discussion/SummaryPatient was seen for telehealth visit today to the use of live video calling.Pleasant 49 year-old female with chronic left leg pain with subsequent CRPS. She is status quo with no changes currently medicinally managed with Hydrocodone, Tizanidine, Topiramate and Duloxetine. He tells me that her pain flares up with the cold weather and today her pain is 8/10 when on a good day it is 4/10. She continues to utilize her spinal cord stimulator daily. She was encouraged to continue with HEP. She will follow up in 1 month as per requirement at this time. Work / School NotePATIENT: if you submit this to your employer as an out of work note please be aware this includes PHI (Protected Health Information). The incident described by the patient is a competent medical cause of this injury. The patient's complaints are consistent with the history of the injury/illness. The patient's history of the injury/illness is consistent with my objective findings. The patient is not working at this time. Patient is on permanent disability. Disability rating is 67 %. Dragon DisclaimerNYSWC Kunshan [employer] Disclaimer: This document was dictated and electronically signed using Aidhen[employer]orner software. A reasonable attempt at proof reading has been made to minimize errors. Please call with any questions. Signatures Electronically signed by : Denise Sharpe NP; Jan 03 2020 3:22PM EST (Author) Electronically signed by : Judy Pretty MD; Jan 05 2020 8:22PM EST Name Value Range Interpretation Code Description Data Melissa rce(s) Supporting Document(s) ID Date Data Source [id number] 10/24/2019 07:51:07 AM EST [facility], PCName: Kristen CloudDOB: 1970Provider: Bhargavi SharpeaDOS: 10/23/2019 Chief Complaint 2 MA completing section: todume History of Present IllnessThe patient is being seen today for workers compensation refill of prescriptions for controlled substances. The workers compensation date of injury is 03/09/2004. Current Meds 1. Bydureon 2 MG Subcutaneous Pen-injector; Therapy: 84Vld3419 to Recorded 2. DULoxetine HCl - 60 MG Oral Capsule Delayed Release Particles; TAKE 1 CAPSULE DAILY. MDD:1; Therapy: 22Dec2011 to (Evaluate:15Jan2020) Requested for: 16Zkr6180; Last Rx:[id number] Ordered 3. Fluticasone Propionate 50 MCG/ACT Nasal Suspension; Therapy: 99Pdt4615 to Recorded 4. HYDROcodone-Acetaminophen 5-325 MG Oral Tablet; one po daily prn pain MDD:1; Therapy: 10Byf9617 to (Evaluate:17Oct2019) Requested for: 35Iyr4845; Last Rx:15Ebd2557 Ordered 5. hydrOXYzine HCl - 25 MG Oral Tablet; Take 3 at bedtime; Therapy: 14Jgc3605 to Recorded 6. Levocetirizine Dihydroch loride 5 MG Oral Tablet; Therapy: (Recorded:14Vpo2725) to Recorded 7. metFORMIN HCl - 1000 MG Oral Tablet; Therapy: 02Jan2013 to Recorded 8. Montelukast Sodium 10 MG Oral Tablet; Therapy: 50Ynl5880 to Recorded 9. Multi Vitamin/Minerals TABS; Therapy: (Recorded:57Aqj1957) to Recorded 10. PriLOSEC 40 MG CPDR; Therapy: (Recorded:78Kzx6738) to Recorded 11. Simvastatin 20 MG Oral Tablet; Therapy: (Recorded:40Rvz3938) to Recorded 12. tiZANidine HCl - 2 MG Oral Tablet; TAKE 1-2 TABLETS AT HS NEEDED FOR SPASM MDD:2; Therapy: 06Flx6901 to (Evaluate:15Mar2020) Requested for: 72Pyl8352; Last Rx:[id number] Ordered 13. Topiramate 50 MG Oral Tablet; ONE PO EVERY HS MDD:1; Therapy: 22Dec2011 to (Evaluate:62Idq9403) Requested for: 89Lzx9722; Last Rx:58Nqx3225 Ordered 14. Toujeo SoloStar 300 UNIT/ML Subcutaneous Solution Pen-injector; Therapy: 27Dec2017 to Recorded 15. traZODone HCl - 100 MG Oral Tablet; Therapy: 14Sep2018 to Recorded 16. Vitamin C TABS; Therapy: (Recorded:98Sao3929) to Recorded 17. ZyrTEC Allergy 10 MG Oral Tablet; Therapy: 18Wit8690 to Recorded Allergies Iodinated Contrast Media Hives; Shortness of breath;; Updated By: Hannah Costa; 04/03/2012 11:46:50 AM Sulfa Drugs Hives;; Updated By: Hannah Costa; 04/03/2012 11:46:50 AM Amitriptyline HCl TABS mouth sores; Updated By: Hannah Costa; 04/03/2012 11:46:50 AM Amoxicillin TABS Rash; Recorded By: Valorie Ramírez; 03/09/2015 12:57:40 PM Depakote Headache; Recorded By: Valorie Ramírez; 03/09/2015 12:57:40 PM Inderal unknown; Recorded By: Valorie Ramírez; 03/09/2015 12:57:40 PM Lyrica CAPS black spots/eye pain; Updated By: Hannah Costa; 04/03/2012 11:46:50 AM Neurontin TABS mouth sores; Updated By: Hannah Costa; 04/03/2012 11:46:50 AM riboflavin mouth sores; Recorded By: Valorie Ramírez; 03/09/2015 12:57:40 PM gabapentin Recorded By: Vick Cantu; 07/21/2017 12:50:25 PM Adhesive Tape Updated By: Hannah Costa; 04/03/2012 11:46:50 AM Latex Updated By: Hannah Costa; 04/03/2012 11:46:50 AM NotesNYSW 30 Day RX Note: Chief complaint: Patient is here today for 30 day refill of their controlled substance prescription Patient is being treated with chronic opioid therapy for CRPS. Patient denies side effects related to chronic opioid use and has been re-educated regarding the controlled substance agreement. In my opinion patient continues to receive primary benefit with chronic opioid therapy. HYDROCODONE . CONTROLLED SUBSTANCE INFORMATION: I advised the patient today/previously regarding treatment with the above controlled substance and/or narcotic. The patient was then informed of the risks, benefits, and alternatives of the narcotic. The risks discussed included but were not limited to physical and/or psychological dependence, tolerance of the medication, drowsiness, sleepiness, balance/coordination problems, confusion, allergic reaction or any other abnormal symptoms. The patient was advised and agreed to use the medication only as prescribed, and not to drive, or operate heavy equipment or machinery. The patient understood and consented to both undergo a narcotic/opiate regimen and agrees to comply with all of the [facility] terms of a controlled substance treatment and agreement. ...OPIOID ABUSE is a national epidemic that Physicians and other prescribers have the power to help prevent. In our opioid monitoring surveillance to help minimize misuse and diversion, moderate to high risk patients are required to have face to face 30 day refill of opioids. This will help minimize the potential for electronic false requests, deterring potential fraudulent behavior. Assessment 1. Other chronic pain (338.29) (G89.29) 2. Lumbar radiculitis (724.4) (M54.16) 3. Complex regional pain syndrome type 1 of left lower extremity (337.22) (G90.522) Plan 1. Renew: HYDROcodone-Acetaminophen 5-325 MG Oral Tablet ([place]); one po daily prn pain MDD:1LD 1-2wks ago [facility] Treatment Plan (2): Treatment includes: FOLLOW UP: (She is encouraged to follow through with her upcoming dental appointment) Signatures Electronically signed by : Denise Sharpe NP; Oct 23 2019 4:20PM EST (Author) Electronically signed by : Angel Bauer MD; Oct 24 2019 7:51AM EST Name Value Range Interpretation Code Description Data Melissa rce(s) Supporting Document(s) ID Date Data Source [id number] 09/25/2019 09:02:35 AM EST [facility] PCName: Kristen MchughB: 1970Provider: Kingsley Sharpe: 09/17/2019 Chief Complaintchronic left leg pain Chief Complaint 2NYSW VAS PAIN Established: MA completing section: todume History of Present IllnessRecent test/procedures: Patient was asked and denies having any tests since their last visit. Patient was asked and denies being seen by any Physicians since their last visit. At today's visit patient presents with their Self Patient is not currently working. 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 The patient is being seen for a workers compensation follow-up. The workers compensation date of injury is 03/09/2004. Pain Quality: (Neuropathic) burning, numbness and pins and needles Pain Quality: (Nociceptive) aching, dull, sharp and stabbing Timing: constant and intermittent. Progression: unchanged Palliation: heat, opioid analgesics and "hot tub" Exacerbating: standing, walking and weather ("cold") Pain Score: a current pain level of 5/10, 3-4 and a maximum pain level of 10/10. Condition type: The patient is being seen for a chronic condition. INJURY SETTING: at work. INJURY MECHANISM: The injury resulted from trauma. PAIN LOCATION: (left leg ). REVIEW OF PAST DIAGNOSTICS: have included: MRI, x-rays, electromyography/nerve conduction studies and spinal cord stimulator. PAST TREATMENT has included: ANTICONVULSANTS (effective) Includes Topamax., ANTIDEPRESSANTS (effective) Includes Cymbalta . helps pain at least 75%., MUSCLE RELAXANTS (effective) Includes Tizanidine . helps at least 50%., OPIOID ANALGES ICS (effective) Includes Hydrocodone . uses sparingly, helps sleep 60%. INTERVAL EVENTS: include . She reports that her pain changes with cold weather. ASSOCIATED SYMPTOMS: include difficulty walking and extremity weakness: , but no fecal incontinence and no urinary incontinence. FUNCTIONAL LIMITATIONS: The patient's functional status is limited as follows: ability to work. MEDICATION SIDE EFFECTS experienced by patient are: no known medication side effects. Review of SystemsROS was reviewed with patient; documented on established patient questionnaire dated 09/17/19. I feel the ROS to be negative/normal other than musculoskeletal . Patient maintains at today's visit there has been no change in his/her hematologic history. Active Problems 1. Acute thoracic back pain (724.1) (M54.6) 2. 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 Complex regional pain syndrome type 1 of left lower extremity (337.22) (G90.522) 4. CRPS (complex regional pain syndrome) (355.9) 5. CRPS (complex regional pain syndrome), lower limb (337.22) (G90.529) 6. Encounter for long-term (current) use of medications (V58.69) (Z79.899) 7. 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 prison current use of opiate analgesic (V58.69) (Z79.891) 10. Lumbar radiculitis (724.4) (M54.16) 11. Other chronic pain (338.29) (G89.29) 12. Pain in unspecified limb (729.5) (M79.609) 13. Reflex sympathetic dystrophy of lower extremity (337.22) (G90.529) Allergies Iodinated Contrast Media Hives; Shortness of breath;; Updated By: Hannah Costa; 04/03/2012 11:46:50 AM Sulfa Drugs Hives;; Updated By: Hannah Costa; 04/03/2012 11:46:50 AM Amitriptyline HCl TABS mouth sores; Updated By: Hannah Costa; 04/03/2012 11:46:50 AM Amoxicillin TABS Rash; Recorded By: Valorie Ramírez; 03/09/2015 12:57:40 PM Depakote Headache; Recorded By: Valorie Ramírez; 03/09/2015 12:57:40 PM Inderal unknown; Recorded By: Valorie Ramírez; 03/09/2015 12:57:40 PM Lyrica CAPS black spots/eye pain; Updated By: Hannah Costa; 04/03/2012 11:46:50 AM Neurontin TABS mouth sores; Updated By: Hannah Costa; 04/03/2012 11:46:50 AM riboflavin mouth sores; Recorded By: Valorie Ramírez; 03/09/2015 12:57:40 PM gabapentin Recorded By: Vick Cantu; 07/21/2017 12:50:25 PM Adhesive Tape Updated By: Hannah Costa; 04/03/2012 11:46:50 AM Latex Updated By: Hannah Costa; 04/03/2012 11:46:50 AM Current Meds Bydureon 2 MG Subcutaneous Pen- injector;Therapy: 23Viz4223 to Recorded DULoxetine HCl - 60 MG Oral Capsule Delayed Release Particles; TAKE 1 CAPSULEDAILY. MDD:1;Therapy: 22Dec2011 to (Evaluate:23Etf9256) Requested for: 06Aug2019; LastRx:06Aug2019 Ordered Fluticasone Propionate 50 MCG/ACT Nasal Suspension;Therapy: 27Ezs5302 to Recorded HYDROcodone-Acetaminophen 5-325 MG Oral Tablet; one po daily prn pain MDD:1;Therapy: 16Mkk8244 to (Evaluate:50Xdv2927) Requested for: 14Aug2019; LastRx:17Qrz7713 OrderedLD 1-2wks ago hydrOXYzine HCl - 25 MG Oral Tablet; Take 3 at bedtime;Therapy: 02Vnz0063 to Recorded Levocetirizine Dihydrochloride 5 MG Oral Tablet;Therapy: (Recorded:14Ece3852) to Recorded metFORMIN HCl - 1000 MG Oral Tablet;Therapy: 02Jan2013 to Recorded Montelukast Sodium 10 MG Oral Tablet;Therapy: 85Zvg5308 to Recorded Multi Vitamin/Minerals TABS;Therapy: (Recorded:20Eqp9572) to Recorded PriLOSEC 40 MG CPDR;Therapy: (Recorded:44Mln5111) to Recorded Simvastatin 20 MG Oral Tablet;Therapy: (Recorded:14Aug2019) to Recorded tiZANidine HCl - 2 MG Oral Tablet; TAKE 1-2 TABLETS AT HS NEEDED FOR SPASMMDD:2;Therapy: [id number] to (Evaluate:20Oct2019) Requested for: [id number]; LastRx:[id number] Ordered Topiramate 50 MG Oral Tablet; ONE PO EVERY HS MDD:1;Therapy: 22Dec2011 to (Evaluate:20Oct2019) Requested for: [id number]; LastRx:[id number] Ordered Toujeo SoloStar 300 UNIT/ML Subcutaneous Solution Pen-injector;Therapy: 27Dec2017 to RecordedFormulary Override Reason: No Formulary Equivalent Exists traZODone HCl - 100 MG Oral Tablet;Therapy: 14Ltq3040 to Recorded Vitamin C TABS;Therapy: (Recorded:[id number]) to Recorded ZyrTEC Allergy 10 MG Oral Tablet;Therapy: [id number] to Recorded Past Medical History Denied: History of Currently Denied: History of Depression Denied: History of blood coagulation disorder History of diabetes mellitus (V12.29) (Z86.39) History of Reflex sympathetic dystrophy of lower extremity (337.22) (G90.529) History of Sinus Tachycardia (427.89) Denied: History of Taking Blood Thinners Surgical History History of Foot Surgery History of Gastric Surgery For Morbid Obesity Bypass With Caitlin-en-Y Denied: History of Implantable Cardioverter-Defibrillator History of Neck Surgery fusion History of Neuroplasty Decompression Median Nerve At Carpal Tunnel History of Neuroplasty Of Ulnar Nerve Left Hand Denied: History of Permanent Pacemaker Type History of Tonsillectomy History of Wrist Surgery Family History Family history of Arthritis (V17.7) Family history of Cancer Family history of Diabetes Mellitus (V18.0) Family history of Hypertension (V17.49) Family history of Cancer Family history of Diabetes Mellitus (V18.0) Family history of Heart Disease (V17.49) Family history of Hypertension (V17.49) Family history of Hypertension (V17.49) Family history of Hypertension (V17.49) Family history of Cancer Family history of Diabetes Mellitus (V18.0) Family history of Cancer Family history of Diabetes Mellitus (V18.0) Family history of Arthritis (V17.7) Family history of Cancer Family history of Diabetes Mellitus (V18.0) Family history of Heart Disease (V17.49) Family history of Hypertension (V17.49) Social History Current non-drinker of alcohol (V49.89) (Z78.9) [id number] Denied: History of Drug Use Former smoker (V15.82) (Z87.891) Marital History - Currently Not Currently Employed VitalsVital Signs Recorded: [id number] 10:57AM Height: 5 ft 4 inWeight: 243 lb BMI Calculated: 41.71BSA Calculated: 2.12Systolic: 140, SittingDiastolic: 88, SittingHeart Rate: 69Respiration: 15Height measured w/wo shoes: w/shoesPain Scale: 5Depression: 6 Physical ExamGeneral: The patient is a well nourished/well developed, who is obese, who is in no acute distress and appears stated age. Eyes: Lids are atraumatic, no lesions, sclerae are anicteric. Ears, Nose, Mouth, Throat: external ears and nose without trauma. Gait and Station: Gait was antalgic. Respiratory: Normal chest expansion and respiratory effort. Skin: Warm, dry, acyanotic. Psychological: Alert and oriented to person, place and time. Mood and affect are pleasant and appropriate. Judgement intact. Insight normal without delusions or hallucinations. Denies suicidal/homicidal ideation. Assessment 1. Leg pain, diffuse, left (729.5) (M79.605) 2. 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 Other chronic pain (338.29) (G89.29) 4. Lumbar radiculitis (724.4) (M54.16) 5. Complex regional pain syndrome type 1 of left lower extremity (337.22) (G90.522) Plan 1. Renew: DULoxetine HCl - 60 MG Oral Capsule Delayed Release Particles (Cymbalta); TAKE 1 CAPSULE DAILY. MDD:1 2. Renew: HYDROcodone-Acetaminophen 5-325 MG Oral Tablet ([place]); one po daily prn pain MDD:1LD 1-2wks ago 3. Renew: tiZANidine HCl - 2 MG Oral Tablet; TAKE 1- 2 TABLETS AT HS NEEDED FOR SPASM MDD:2 4. Renew: Topiramate 50 MG Oral Tablet; ONE PO EVERY HS MDD:1 5. 30 Day RX Management Follow-up Status: Complete Done: [id number]). Schedule (FUP) 60 days from today: : [id number]). Is an additional appointment needed....? : Yes). Schedule 30 day RX from TODAY's date (2 days +/- either way): : 18Oct2019 In my opinion based on subjective and objective findings from today's visit the patient is status quo. Medication:. [place] [employer] Information: ELECTRICAL ENGINEER MEP was consulted by my designee and I have reviewed the information presented to me and find no aberrant compliance issues. Patient has been informed. General Medications Prescribed: TIZANIDINE, TOPIRAMATE . GENERAL MEDICATIONS: I advised the patient today/previously regarding treatment with the above medication(s). The risks, benefits, common side effects and alternative treatments were discussed with the patient. The provider verbalized with the patient. The patient verbalized understanding and was told to call if there were any untoward effects. Controlled Substance Prescribed: HYDROCODONE . CONTROLLED SUBSTANCE INFORMATION: I advised the patient today/previously regarding treatment with the above controlled substance and/or narcotic. The patient was then informed of the risks, benefits, and alternatives of the narcotic. The risks discussed included but were not limited to physical and/or psychological dependence, tolerance of the medication, drowsiness, sleepiness, balance/coordination problems, confusion, allergic reaction or any other abnormal symptoms. The patient was advised and agreed to use the medication only as prescribed, and not to drive, or operate heavy equipment or machinery. The patient understood and consented to both undergo a narcotic/opiate regimen and agreed to sign and comply with all of the [facility] terms of a controlled substance treatment and agreement.Antidepressants Prescribed: DULOXETINE . ANTI-DEPRESSANT: I advised the patient today/previously regarding treatment with the above antidepressant(s). Patient is aware of rare but serious risk of potential suicidal thoughts, worsening depression, and/or serotonin syndrome. Patient agrees to discontinue medication and to contact [facility], friend(s) or family member(s), and/or [facility] if this occurs. The patient is on the lowest possible dose of opioids. The patient denies adverse side effects and does not demonstrate any aberrant drug taking behaviors. The patient is able to perform ADL's including the following activities for longer periods of time with less pain: activities of daily living, sleeping, walking, standing, sitting, grocery shopping . There are no changes in current medications at this visit. Patient instructed to continue current regimen. The prescribed medications are medically necessary for pain management and rehabilitation. Treatment includes: PROCEDURE(S): the patient defers blocks/procedures at this time FOLLOW UP: The patient should have a follow up visit in 2 months. The viktor ent should have a follow up 30 Day RX. CONTINUE TREATMENT: Jena will continue with the following:. Patient will follow up with their PCP. Jena is participating in a home exercise program and is encouraged to continue. Miscellaneous: - WEIGHT LOSS: Weight loss was discussed and encouraged. - FRONT OFFICE ADMINISTRATOR: The patient was counseled on the following: treatment plan. Discussion/SummaryPleasant 49 year-old female with chronic left leg pain with subsequent CRPS. She is currently medicinally managed with Hydrocodone, Tizanidine, Topiramate and Duloxetine, no changes. She has a SCS that she uses and will have a reprogramming done today. She defers nerve blocks/injections. She will follow up in 30 days for a medication check and 2 months for a routine follow up appt. Work / School NotePATIENT: if you submit this to your employer as an out of work note please be aware this includes PHI (Protected Health Information). The incident described by the patient is a competent medical cause of this injury. The patient's complaints are consistent with the history of the injury/illness. The patient's history of the injury/illness is consistent with my objective findings. The patient is not working at this time. Patient is on permanent disability. Disability rating is 67 %. Signatures Electronically signed by : Denise Sharpe NP; Sep 17 2019 11:37AM EST (Author) Electronically signed by : Judy Pretty MD; Sep 18 2019 8:47AM EST Electronically signed by : Denise Sharpe NP; Sep 24 2019 1:42PM EST (Author) Electronically signed by : Judy Pretty MD; Sep 25 2019 9:02AM EST Name Value Range Interpretation Code Description Data Melissa rce(s) Supporting Document(s) ID Date Data Source GATS (NEGATIVE STREP SCREEN) 09/08/2019 12:00:00 AM EST eCW1 ([facility]) Name Value Range Interpretation Code Description Data Melissa rce(s) Supporting Document(s) FULL REPORT IN LAB NOTES (eCW and Medent). GATS CULTURE (NEG STREP SCR) eCW1 ([facility]) Procedure Social History Code Duration Value Status Description Data Source(s ) Smoking 10/21/2020 12:00:00 AM EST Former Smoker completed Former Smoker eCW1 ([facility]) Smoking 10/21/2020 12:00:00 AM EST Former Smoker completed Former Smoker eCW1 ([facility]) Smoking 10/21/2020 12:00:00 AM EST Former Smoker completed Former Smoker eCW1 ([facility]) Smoking 10/19/2020 12:00:00 AM EST Former Smoker completed Former Smoker eCW1 ([facility]) Smoking 10/16/2020 12:00:00 AM EST Former Smoker completed Former Smoker eCW1 ([facility]) Alcohol intake 09/07/2020 12:00:00 AM EST Yes completed [facility] Cigarette pack-years 09/07/2020 12:00:00 AM EST UNK completed [facility] Cigarettes smoked current (pack per day) - Reported 09/07/20 12:00:00 AM EST UNK completed [facility] Smoking 09/07/2020 12:00:00 AM EST Former smoker completed Former smoker [facility] Smoking 08/27/2020 12:00:00 AM EST Former Smoker completed Former Smoker eCW1 ([facility]) Smoking 08/27/2020 12:00:00 AM EST Former Smoker completed Former Smoker eCW1 ([facility]) Smoking 08/27/2020 12:00:00 AM EST Former Smoker completed Former Smoker eCW1 ([facility]) Smoking 08/27/2020 12:00:00 AM EST Former Smoker completed Former Smoker eCW1 ([facility]) Smoking 08/27/2020 12:00:00 AM EST Former Smoker completed Former Smoker eCW1 ([facility]) Smoking 08/27/2020 12:00:00 AM EST Former Smoker completed Former Smoker eCW1 ([facility]) Smoking 08/27/2020 12:00:00 AM EST Former Smoker completed Former Smoker eCW1 ([facility]) Smoking 08/27/2020 12:00:00 AM EST Former Smoker completed Former Smoker eCW1 ([facility]) Smoking 04/22/2020 12:00:00 AM EDT Former Smoker completed Former Smoker eCW1 ([facility]) Smoking 04/22/2020 12:00:00 AM EDT Former Smoker completed Former Smoker eCW1 ([facility]) Smoking 04/22/2020 12:00:00 AM EDT Former Smoker completed Former Smoker eCW1 ([facility]) Smoking 04/22/2020 12:00:00 AM EDT Former Smoker completed Former Smoker eCW1 ([facility]) Smoking 04/22/2020 12:00:00 AM EDT Former Smoker completed Former Smoker eCW1 ([facility]) Smoking 04/22/2020 12:00:00 AM EDT Former Smoker completed Former Smoker eCW1 ([facility]) Smoking 04/22/2020 12:00:00 AM EDT Former Smoker completed Former Smoker eCW1 ([facility]) Smoking 04/22/2020 12:00:00 AM EDT Former Smoker completed Former Smoker eCW1 ([facility]) Smoking 04/21/2020 12:00:00 AM EDT Patient is a former smoker completed Patient is a former smoker MED[facility] ([facility] ) Smoking 03/27/2020 12:00:00 AM EDT Former Smoker completed Former Smoker eCW1 ([facility]) Smoking 03/27/2020 12:00:00 AM EDT Former Smoker completed Former Smoker eCW1 ([facility]) Smoking 03/11/2020 12:00:00 AM EDT Former Smoker completed Former Smoker eCW1 ([facility]) Smoking 03/11/2020 12:00:00 AM EDT Former Smoker completed Former Smoker eCW1 ([facility]) Vital Signs ID Date Data Source UNK Name Value Range Interpretation Code Description Data Source(s) Body mass index (BMI) [Ratio] 39.8 kg/m2 39.8 k g/m2 [facility] Body height 64 [in_i] 64 [in_i] [facility] 5'4" Body weight 232.00 [lb_av] 232.00 [lb_av] MEDEN T ([facility]) Body temperature 98.8 [degF] 98.8 [degF] [facility] ([facility]) Oxygen saturation in Arterial blood by Pulse oximetry 98 % 98 % [facility] ([facility]) Respiratory rate 14 /min 14 /min [facility] Heart rate 83 /min 83 /min MED[facility] ([facility], [facility]) Diastolic blood pressure 90 mm[Hg] 90 mm[Hg] MEDENT ([facility], [facility]) Systolic blood pressure 144 mm[Hg] 144 mm[Hg] M EDENT ([facility], [facility]) Diastolic blood pressure 102 mm[Hg] 102 mm[Hg] eCW1 ([facility]) Systolic blood pressure 152 mm[Hg] 152 mm[Hg] e CW1 ([facility]) Body temperature 97.4 [degF] 97.4 [degF] eCW1 ( [facility]) Respiratory rate 18 /min 18 /min eCW1 ([facility]) Heart rate 85 /min 85 /min eCW1 ([facility]) Body mass index (BMI) [Ratio] 39.99 kg/m2 39.99 kg/m2 W1 ([facility]) Body height 64 [in_i] 64 [in_i] eCW1 ([facility] Body weight 233 [lb_av] 233 [lb_av] eCW1 ([facility]) Diastolic blood pressure 96 mm[Hg] 96 mm[Hg] eCW1 ([facility]) Systolic blood pressure 148 mm[Hg] 148 mm[Hg] e CW1 ([facility]) Body temperature 96.1 [degF] 96.1 [degF] eCW1 ( [facility]) Heart rate 86 /min 86 /min eCW1 ([facility]) Body mass index (BMI) [Ratio] 40.02 kg/m2 40.02 kg/m2 eCW1 ([facility]) Body height 64 [in_i] 64 [in_i] eCW1 ([facility] Body weight 233.2 [lb_av] 233.2 [lb_av] eCW1 ([facility]) Oxygen saturation in Arterial blood by Pulse oximetry 95 % 95 % [facility] Body mass index (BMI) [Ratio] 39.99 kg/m2 39.99 kg/m2 [facility] Body weight 105.688 kg 105.688 kg [facility] Body height 162.6 cm 162.6 cm [facility] Body temperature 36.11 Allison 36.11 Allison [facility] Heart rate 96 /min 96 /min [facility] Diastolic blood pressure 86 mm[Hg] 86 mm[Hg] [facility] Systolic blood pressure 129 mm[Hg] 129 mm[Hg] [facility] Diastolic blood pressure 83 mm[Hg] 83 mm[Hg] eCW1 ([facility]) Systolic blood pressure 138 mm[Hg] 138 mm[Hg] e CW1 ([facility]) Body temperature 99.0 [degF] 99.0 [degF] eCW1 ( [facility]) Respiratory rate 18 /min 18 /min eCW1 ([facility]) Heart rate 89 /min 89 /min eCW1 ([facility]) Body mass index (BMI) [Ratio] 39.82 kg/m2 39.82 kg/m2 W1 ([facility]) Body height 64 [in_i] 64 [in_i] eCW1 ([facility]) Body weight 232 [lb_av] 232 [lb_av] eCW1 ([facility]) Diastolic blood pressure 87 mm[Hg] 87 mm[Hg] eCW1 ([facility]) Systolic blood pressure 130 mm[Hg] 130 mm[Hg] e CW1 ([facility]) Body temperature 97.0 [degF] 97.0 [degF] eCW1 ( [facility]) Respiratory rate 18 /min 18 /min eCW1 ([facility]) Heart rate 80 /min 80 /min eCW1 ([facility]) Body mass index (BMI) [Ratio] 41.36 kg/m2 41.36 kg/m2 W1 ([facility]) Body height 64 [in_i] 64 [in_i] eCW1 ([facility]) Body weight 241 [lb_av] 241 [lb_av] eCW1 ([facility]) Body mass index (BMI) [Ratio] 40.2 kg/m2 40.2 k g/m2 MED[facility] ([facility]) Diastolic blood pressure 88 mm[Hg] 88 mm[Hg] [facility] ([facility]) Systolic blood pressure 124 mm[Hg] 124 mm[Hg] M EDENT ([facility]) Respiratory rate 18 /min 18 /min [facility] ( [facility]) Heart rate 88 /min 88 /min [facility] Body height 64 [in_i] 64 [in_i] [facility] 5'4" Body weight 234.25 [lb_av] 234.25 [lb_av] MEDEN T ([facility] Diastolic blood pressure 76 mm[Hg] 76 mm[Hg] eCW1 ([facility]) Systolic blood pressure 123 mm[Hg] 123 mm[Hg] e CW1 ([facility]) Body temperature 98.2 [degF] 98.2 [degF] eCW1 ( [facility]) Respiratory rate 17 /min 17 /min eCW1 ([facility]) Heart rate 80 /min 80 /min eCW1 ([facility]) Body mass index (BMI) [Ratio] 41.19 kg/m2 41.19 kg/m2 eCW1 ([facility]) Body height 64 [in_i] 64 [in_i] eCW1 ([facility]) Body weight 240 [lb_av] 240 [lb_av] eCW1 ([facility]) Diastolic blood pressure 86 mm[Hg] 86 mm[Hg] eCW1 ([facility]) Systolic blood pressure 131 mm[Hg] 131 mm[Hg] e CW1 ([facility]) Body temperature 98.0 [degF] 98.0 [degF] eCW1 ( [facility]) Respiratory rate 18 /min 18 /min eCW1 ([facility]) Heart rate 76 /min 76 /min eCW1 ([facility]) Body mass index (BMI) [Ratio] 41.02 kg/m2 41.02 kg/m2 eCW1 ([facility]) Body height 64 [in_i] 64 [in_i] eCW1 ([facility]) Body weight 239 [lb_av] 239 [lb_av] eCW1 ([facility]) Diastolic blood pressure 105 mm[Hg] 105 mm[Hg] eCW1 ([facility]) Systolic blood pressure 145 mm[Hg] 145 mm[Hg] e CW1 ([facility]) Body temperature 98.6 [degF] 98.6 [degF] eCW1 ( [facility]) Respiratory rate 18 /min 18 /min eCW1 ([facility]) Heart rate 92 /min 92 /min eCW1 ([facility]) Body mass index (BMI) [Ratio] 41.02 kg/m2 41.02 kg/m2 eCW1 ([facility]) Body height 64 [in_us] 64 [in_us] eCW1 ([facility]) Body weight Measured 239 [lb_av] 239 [lb_av] eC W1 ([facility]) Diastolic blood pressure 86 mm[Hg] 86 mm[Hg] eCW1 ([facility]) Systolic blood pressure 140 mm[Hg] 140 mm[Hg] e CW1 ([facility]) Body temperature 96.9 [degF] 96.9 [degF] eCW1 ( [facility]) Respiratory rate 18 /min 18 /min eCW1 ([facility]) Heart rate 91 /min 91 /min eCW1 ([facility]) Body mass index (BMI) [Ratio] 39.44 kg/m2 39.44 kg/m2 eCW1 ([facility]) Body height 64 [in_us] 64 [in_us] eCW1 ([facility]) Body weight Measured 229.8 [lb_av] 229.8 [lb_av ] eCW1 ([facility]) Diastolic blood pressure 92 mm[Hg] 92 mm[Hg] eCW1 ([facility]) Systolic blood pressure 138 mm[Hg] 138 mm[Hg] e CW1 ([facility]) Body temperature 96.9 [degF] 96.9 [degF] eCW1 ( [facility]) Respiratory rate 18 /min 18 /min eCW1 ([facility]) Heart rate 92 /min 92 /min eCW1 ([facility]) Body mass index (BMI) [Ratio] 39.96 kg/m2 39.96 kg/m2 eCW1 ([facility]) Body height 64 [in_us] 64 [in_us] eCW1 ([facility]) Body weight Measured 232.8 [lb_av] 232.8 [lb_av ] eCW1 ([facility]) Diastolic blood pressure 80 mm[Hg] 80 mm[Hg] eCW1 ([facility]) Systolic blood pressure 174 mm[Hg] 174 mm[Hg] e CW1 ([facility]) Body temperature 98.7 [degF] 98.7 [degF] eCW1 ( [facility]) Respiratory rate 18 /min 18 /min eCW1 ([facility]) Heart rate 83 /min 83 /min eCW1 ([facility]) Body mass index (BMI) [Ratio] 39.99 kg/m2 39.99 kg/m2 eCW1 ([facility]) Body height 64 [in_us] 64 [in_us] eCW1 ([facility]) Body weight Measured 233 [lb_av] 233 [lb_av] eC W1 ([facility]) Diastolic blood pressure 82 mm[Hg] 82 mm[Hg] eCW1 ([facility]) Systolic blood pressure 137 mm[Hg] 137 mm[Hg] e CW1 ([facility]) Body temperature 97.3 [degF] 97.3 [degF] eCW1 ( [facility]) Respiratory rate 18 /min 18 /min eCW1 ([facility]) Heart rate 86 /min 86 /min eCW1 ([facility]) Body mass index (BMI) [Ratio] 39.65 kg/m2 39.65 kg/m2 eCW1 ([facility]) Body height 64 [in_us] 64 [in_us] W1 ([facility]) Body weight Measured 231 [lb_av] 231 [lb_av] eC W1 ([facility]) ID Date Data Source [id number] 10/26/2020 07:17:00 PM EST [facility] Name Value Range Interpretation Code Description Data Source(s) Weight (Calculated Kilograms) 101.60 101.60 [facility] Height (Calculated Centimeters) 162.56 162. 56 [facility] Body Mass Index (BMI) 38.4 38.4 [facility] Patient Treatment Plan of Care Planned Activity Planned Date Details Description Data Source (s) 200 ACTUAT Albuterol 0.09 MG/ACTUAT Metered Dose Inhal er [ProAir] 10/16/2020 12:00:00 AM EST eCW1 ([facility]) 1.5 ML Insulin Glargine 300 UNT/ML Pen Injector [Touje o] 05/31/2020 12:00:00 AM EDT [facility] Losartan Potassium 25 MG Oral Tablet 04/30/2020 12:00:00 AM EDT [facility] Hydrocortisone 10 MG/ML / Neomycin 3.5 M G/ML / Polymyxin B 34764 UNT/ML Otic Suspension 04/22/2020 12:00:00 AM EDT eCW1 ([facility]) Hydrocortisone 10 MG/ML / Neomycin 3.5 M G/ML / Polymyxin B 30693 UNT/ML Otic Suspension 04/22/2020 12:00:00 AM EDT eCW1 ([facility]) Hydrocortisone 10 MG/ML / Neomycin 3.5 M G/ML / Polymyxin B 59996 UNT/ML Otic Suspension 04/22/2020 12:00:00 AM EDT eCW1 ([facility]) Hydrocortisone 10 MG/ML / Neomycin 3.5 M G/ML / Polymyxin B 45842 UNT/ML Otic Suspension 04/22/2020 12:00:00 AM EDT eCW1 ([facility]) Hydrocortisone 10 MG/ML / Neomycin 3.5 M G/ML / Polymyxin B 03032 UNT/ML Otic Suspension 04/22/2020 12:00:00 AM EDT eCW1 ([facility]) Hydrocortisone 10 MG/ML / Neomycin 3.5 M G/ML / Polymyxin B 12232 UNT/ML Otic Suspension 04/22/2020 12:00:00 AM EDT eCW1 ([facility]) Hydrocortisone 10 MG/ML / Neomycin 3.5 M G/ML / Polymyxin B 71863 UNT/ML Otic Suspension 04/22/2020 12:00:00 AM EDT eCW1 ([facility]) Hydrocortisone 10 MG/ML / Neomycin 3.5 M G/ML / Polymyxin B 53119 UNT/ML Otic Suspension 04/22/2020 12:00:00 AM EDT eCW1 ([facility]) Trazodone Hydrochloride 100 MG Oral Tablet 04/17/2020 12:00:00 AM E DT [facility] Prednisone 10 MG Oral Tablet 03/11/2020 12:00:00 AM EDT eCW1 ([facility]) Prednisone 10 MG Oral Tablet 03/11/2020 12:00:00 AM EDT eCW1 ([facility]) Simvastatin 20 MG Oral Tablet 03/06/2020 12:00:00 AM EDT [facility] Losartan Potassium 25 MG Oral Tablet 02/11/2020 12:00:00 AM EDT eCW1 ([facility]) Losartan Potassium 25 MG Oral Tablet 02/11/2020 12:00:00 AM EDT eCW1 ([facility]) Losartan Potassium 25 MG Oral Tablet 02/11/2020 12:00:00 AM EDT eCW1 ([facility]) Test Strips - 11/05/2019 12:00:00 AM EST eCW1 ([facility]) Test Strips - 11/05/2019 12:00:00 AM EST eCW1 ([facility]) doxycycline hyclate 100 MG Oral Capsule 10/18/2019 12:00:00 AM EST eCW1 ([facility]) valacyclovir 1000 MG Oral Tablet [Valtrex] 10/18/2019 12:00:[address] eCW1 ([facility]) montelukast 10 MG Oral Tablet 04/08/2019 02:50:53 PM LUCIOT BECKA ([facility])
[2020-10-29] MEDS: NS 1,000 ML IV SCH ×2 (14:54→21:30)
[2020-10-29] MEDS ORDERED: DULO1CAP5 PO (15:18)
[2020-10-29] MEDS ORDERED: VALT1TAB PO (15:18)
[2020-10-29] MEDS ORDERED: LOSA25TA14 PO (15:18)
[2020-10-29] MEDS ORDERED: SIMV20TA22 PO (15:18)
[2020-10-29] MEDS ORDERED: DOXY-350 PO (15:18)
[2020-10-29] MEDS ORDERED: PRIL20TA2 PO (15:18)
[2020-10-29 15:21] LABS: BASO # 0.1 10^3/uL (0.0-0.2); BASO % 0.7 % (0.0-1.0); EOS # 0.2 10^3/uL (0.0-0.5); EOS % 1.4 % (0.0-3.0); HEMOGLOBIN 14.9 g/dl (12.0-15.5); LYMPH # 2.9 10^3/uL (1.5-5.0); LYMPH % 27.1 % (24.0-44.0); MEAN CORPUSCULAR HEMOGLOBIN 27.5 pg (27.0-33.0); MEAN CORPUSCULAR HGB CONC 32.4 g/dl (32.0-36.5); MONO # 0.6 10^3/uL (0.0-0.8); NEUTROPHILS # 6.8 10^3/uL (1.5-8.5); NEUTROPHILS % 64.2 % (36.0-66.0); PLATELET COUNT, AUTOMATED 378 10^3/uL (150-450); RED BLOOD COUNT 5.41 10^6/uL (4.00-5.40); WHITE BLOOD COUNT 10.5 10^3/uL (4.0-10.0)
[2020-10-29] MEDS ORDERED: LOSARTAN 25 MG TAB PO ONE (15:30)
[2020-10-29 15:33] VITALS: BP 173/101
--- OUTSIDE RECORDS SUMMARY | 2020-10-29 15:41 | CCD ---
Author Author [facility] Organization [facility] Address Unknown Phone Unavailable Care Team Providers Care Wedding Transportation Driver Name Role Phone Hill, A Che FACILITY PLANNER Unavailable Unavailable Hill, A Che FACILITY PLANNER Unavailable Unavailable Hill, A Che FACILITY PLANNER Unavailable Unavailable Hill, A Che FACILITY PLANNER Unavailable Unavailable Hill, A Che FACILITY PLANNER Unavailable Unavailable Hill, A Che FACILITY PLANNER Unavailable Unavailable Hill, A Che FACILITY PLANNER Unavailable Unavailable Hill, A Che FACILITY PLANNER Unavailable Unavailable Hill, A Che FACILITY PLANNER Unavailable Unavailable Hill, A Che FACILITY PLANNER Unavailable Unavailable Hill, A Che FACILITY PLANNER Unavailable Unavailable Hill, A Che FACILITY PLANNER Unavailable Unavailable Hill, A Che FACILITY PLANNER Unavailable Unavailable Hill, A Che FACILITY PLANNER Unavailable Unavailable Hill, A Che FACILITY PLANNER Unavailable Unavailable Hill, A Che FACILITY PLANNER Unavailable Unavailable Hill, A Che FACILITY PLANNER Unavailable Unavailable Hill, A Che FACILITY PLANNER Unavailable Unavailable Hill, A Che FACILITY PLANNER Unavailable Unavailable Hill, A Che FACILITY PLANNER Unavailable Unavailable Hill, A Che FACILITY PLANNER Unavailable Unavailable Kayley Khan-PA Unavailable Unavailable Faltyn, [...] Annabella CASAC Unavailable Unavailable Profetto, A Braydon HOMEMAKER COMPANION Unavailable Unavailable Profetto, A Braydon HOMEMAKER COMPANION Unavailable Unavailable Profetto, A Braydon HOMEMAKER COMPANION Unavailable Unavailable Profetto, A Braydon HOMEMAKER COMPANION Unavailable Unavailable Profetto, A Braydon HOMEMAKER COMPANION Unavailable Unavailable Profetto, A Braydon HOMEMAKER COMPANION Unavailable Unavailable Profetto, A Braydon HOMEMAKER COMPANION Unavailable Unavailable Profetto, A Braydon HOMEMAKER COMPANION Unavailable Unavailable Profetto, A Braydon HOMEMAKER COMPANION Unavailable Unavailable Profetto, A Braydon HOMEMAKER COMPANION Unavailable Unavailable Profetto, A Braydon HOMEMAKER COMPANION Unavailable Unavailable Profetto, A Braydon HOMEMAKER COMPANION Unavailable Unavailable Profetto, A Braydon HOMEMAKER COMPANION Unavailable Unavailable Profetto, A Braydon HOMEMAKER COMPANION Unavailable Unavailable Profetto, A Braydon HOMEMAKER COMPANION Unavailable Unavailable Profetto, A Braydon HOMEMAKER COMPANION Unavailable Unavailable Profetto, A Braydon HOMEMAKER COMPANION Unavailable Unavailable Profetto, A Braydon HOMEMAKER COMPANION Unavailable Unavailable Profetto, A Braydon HOMEMAKER COMPANION Unavailable Unavailable Profetto, A Braydon HOMEMAKER COMPANION Unavailable Unavailable Profetto, A Braydon HOMEMAKER COMPANION Unavailable Unavailable Profetto, A Braydon HOMEMAKER COMPANION Unavailable Unavailable Profetto, A Braydon HOMEMAKER COMPANION Unavailable Unavailable Profetto, A Braydon HOMEMAKER COMPANION Unavailable Unavailable Profetto, A Braydon HOMEMAKER COMPANION Unavailable Unavailable Profetto, A Braydon HOMEMAKER COMPANION Unavailable Unavailable Profetto, A Braydon HOMEMAKER COMPANION Unavailable Unavailable Profetto, A Braydon HOMEMAKER COMPANION Unavailable Unavailable Profetto, A Braydon HOMEMAKER COMPANION Unavailable Unavailable [id number] BHANDARI MD Unavailable Unavailable [...] Unavailable Aissatou POOL MD Unavailable Unavailable Aissatou OPOL MD Unavailable Unavailable Aissatou POOL MD Unavailable [...] POOL MD Unavailable Unavailable Dell, L Shelyta HOMEMAKER COMPANION Unavailable Unavailable Dell, L Shelyta HOMEMAKER COMPANION Unavailable Unavailable Dell, L Shelyta HOMEMAKER COMPANION Unavailable Unavailable Dell, L Shelyta HOMEMAKER COMPANION Unavailable Unavailable Dell, L Shelyta HOMEMAKER COMPANION Unavailable Unavailable Dell, L Shelyta HOMEMAKER COMPANION Unavailable Unavailable Dell, L Shelyta HOMEMAKER COMPANION Unavailable Unavailable Dell, L Shelyta HOMEMAKER COMPANION Unavailable Unavailable Dell, L Shelyta HOMEMAKER COMPANION Unavailable Unavailable Dell, L Shelyta HOMEMAKER COMPANION Unavailable Unavailable Dell, L Shelyta HOMEMAKER COMPANION Unavailable Unavailable Dell, L Shelyta HOMEMAKER COMPANION Unavailable Unavailable Dell, L Shelyta HOMEMAKER COMPANION Unavailable Unavailable Dell, L Shelyta HOMEMAKER COMPANION Unavailable Unavailable Dell, L Shelyta HOMEMAKER COMPANION Unavailable Unavailable Dell, L Shelyta HOMEMAKER COMPANION Unavailable Unavailable Dell, L Shelyta HOMEMAKER COMPANION Unavailable Unavailable Dell, L Shelyta HOMEMAKER COMPANION Unavailable Unavailable Dell, L Shelyta HOMEMAKER COMPANION Unavailable Unavailable Dell, L Shelyta HOMEMAKER COMPANION Unavailable Unavailable Dell, L Shelyta HOMEMAKER COMPANION Unavailable Unavailable Dell, L Shelyta HOMEMAKER COMPANION Unavailable Unavailable Dell, L Shelyta HOMEMAKER COMPANION Unavailable Unavailable Emilee Botello HOMEMAKER COMPANION-C Unavailable Unavaila ble Ryfun, Emilee Cravenfer HOMEMAKER COMPANION-C Unavailable Unavaila ble Ryfun, Emilee Naranjo HOMEMAKER COMPANION-C Unavailable Unavaila ble Ryfun, Emilee Cravenfer HOMEMAKER COMPANION-C Unavailable Unavaila ble Ryfun, Emilee Cravenfer HOMEMAKER COMPANION-C Unavailable Unavaila ble Ryfun, Emilee Cravenfer HOMEMAKER COMPANION-C Unavailable Unavaila ble Ryfun, Emilee Cravenfer HOMEMAKER COMPANION-C Unavailable Unavaila ble Ryfun, Emilee Cravenfer HOMEMAKER COMPANION-C Unavailable Unavaila ble Ryfun, Emilee Cravenfer HOMEMAKER COMPANION-C Unavailable Unavaila ble Ryfun, Emilee Oliviernifer HOMEMAKER COMPANION-C Unavailable Unavaila ble Ryfun, Emilee Cravenfer HOMEMAKER COMPANION-C Unavailable Unavaila ble Ryfun, Emilee Cravenfer HOMEMAKER COMPANION-C Unavailable Unavaila ble Ryfun, Emilee Cravenfer HOMEMAKER COMPANION-C Unavailable Unavaila ble Ryfun, Emilee Cravenfer HOMEMAKER COMPANION-C Unavailable Unavaila ble Ryfun, Emilee Cravenfer HOMEMAKER COMPANION-C Unavailable Unavaila ble Ryfun, Emilee Oliviernifer HOMEMAKER COMPANION-C Unavailable Unavaila ble Ryfun, Emilee Oliviernifer HOMEMAKER COMPANION-C Unavailable Unavaila ble Ryfun, Emilee Cravenfer HOMEMAKER COMPANION-C Unavailable Unavaila ble Ryfun, Emilee Cravenfer HOMEMAKER COMPANION-C Unavailable Unavaila ble Ryfun, Emilee Oliviernifer HOMEMAKER COMPANION-C Unavailable Unavaila ble Ryfun, Emilee Cravenfer HOMEMAKER COMPANION-C Unavailable Unavaila ble Ryfun, Emilee Oliviernifer HOMEMAKER COMPANION-C Unavailable Unavaila ble Ryfun, Emilee Oliviernifer HOMEMAKER COMPANION-C Unavailable Unavaila ble Ryfun, Emilee Oliviernifer HOMEMAKER COMPANION-C Unavailable Unavaila ble Ryfun, Emilee Oliviernifer HOMEMAKER COMPANION-C Unavailable Unavaila ble Ryfun, Emilee Oliviernifer HOMEMAKER COMPANION-C Unavailable Unavaila ble Ryfun, Emilee Cravenfer HOMEMAKER COMPANION-C Unavailable Unavaila ble Ryfun, Emilee Oliviernifer HOMEMAKER COMPANION-C Unavailable Unavaila ble Ryfun, Emilee Cravenfer HOMEMAKER COMPANION-C Unavailable Unavaila ble Ryfun, Emilee Cravenfer HOMEMAKER COMPANION-C Unavailable Unavaila ble Omer FENTON MD Unavailable Unavailable Omer FENTON MD Unavailable Unavailable Omer FENTON MD Unavailable Unavailable mOer FENTON MD Unavailable Unavailable Omer FENTON MD [...] is protected by Article 27-F of the [facility] Public Health law. If you continue you may have access to information: Regarding HIV / AIDS; Provided by facilities licensed or operated by the [facility] Office of Mental Health; or Provided by the [facility] Office for People With Developmental Disabilities. If such information is present, then the following [facility] mandated warning applies: This information has been [...] law may result in a fine or halfway sentence or both. A general authorization for the release of medical or other information is NOT sufficient authorization for further disc losure. Allergies and Adverse Reactions Type Description Substance Reaction Status Data Source(s ) Drug allergy Depakote Valproate SCRUGGS Active eCW1 ([facility]) Drug allergy Lyrica pregabalin Orbital pain, black dots [facility] Drug allergy Amitriptyline HCl Amitriptyline Mouth sores Active [facility]) Drug allergy Magnesium Drug allergy mouth sores Active [facility] Drug allergy Inderal Drug allergy Hives Active eCW1 ([facility]) Drug allergy Zinc Drug allergy Hives Active eCW1 ([facility]) Riboflavin Riboflavin Riboflavin Mouth sores Active eCW1 ([facility]) MRI Dye MRI Dye MRI Dye Anaphylaxis Active eCW1 ([facility]) Riboflavin Riboflavin Riboflavin Mouth sores Active eCW1 ([facility]) MRI Dye MRI Dye MRI Dye Anaphylaxis Active eCW1 ([facility]) Riboflavin Riboflavin Riboflavin Mouth sores Active eCW1 ([facility]) MRI Dye MRI Dye MRI Dye Anaphylaxis Active eCW1 ([facility]) Riboflavin Riboflavin Riboflavin Mouth sores Active eCW1 ([facility]) MRI Dye MRI Dye MRI Dye Anaphylaxis Active eCW1 ([facility]) Riboflavin Riboflavin Riboflavin Mouth sores Active eCW1 ([facility]) MRI Dye MRI Dye MRI Dye Anaphylaxis Active eCW1 ([facility]) Family History Family Member Name Family Member Gender Family Member Status Date o f Status Description Data Source(s) Unknown Male Problem MEDENT ([facility] ) Unknown Male Problem MEDENT ([facility] Unknown Unknown Problem MEDENT ([facility], ) Mother; Sister Unknown Unknown Problem MEDENT ([facility], ) Unknown Unknown Problem MEDENT ([facility], ) Unknown Unknown Problem MEDENT ([facility], ) Unknown Unknown Problem MEDENT ([facility], ) Unknown [facility] Problem MEDENT ([facility], ) Unknown Unknown Problem MEDENT ([facility], ) Unknown [facility] Problem MEDENT ([facility], ) Unknown Unknown Problem MEDENT ([facility], ) Unknown Unknown Problem MEDENT ([facility], ) Unknown [facility] Problem MEDENT ([facility], ) Unknown Unknown Problem MEDENT ([facility], ) Unknown Unknown Problem MEDENT ([facility], ) Unknown Unknown Problem MEDENT ([facility], ) Unknown [facility] Problem MEDENT ([facility], ) Unknown Unknown Problem MEDENT ([facility], ) Unknown Unknown Problem MEDENT ([facility], ) Unknown Unknown Problem MEDENT ([facility], ) Unknown Unknown Problem MEDENT ([facility], ) Encounters Encounter Providers Location Date Indications Data Source(s ) Outpatient [id number] 10/26/2020 02:49:00 PM EST [facility] Outpatient Attender: SHANNAN FENTON MD ED-LAB 2020 12:39:00 PM EST - 10/26/2020 12:40:00 PM EST E119 [facility] E119 Patient discharged. ([facility]) [facility] Scheduled Visit [address] [place] [address] 10/22/2020 12:00:00 AM EST eCW1 ([facility]) TeleMedicine Phone E/M by Keagan 5-[address] [place] [phone] 10/21/2020 12:00:00 AM EST eCW1 ([facility]) Outpatient Attender: CANDY maguire 10/19/2020 04:15:00 PM EST MEDENT ([facility]) Outpatient [address] [facility] [address] 10/19/2020 12:00:00 AM EST [facility]CW1 [facility]) Outpatient [address] [facility] [address] 10/16/2020 12:00:00 AM EST eCW1 ([facility]) Unknown [address] [facility] [address] 10/16/2020 12:00:00 AM EST eCW1 ([facility]) Unknown [address] [facility] [address] 10/08/2020 12:00:00 AM EST eCW1 ([facility]) Unknown [address] [facility] [address] 10/07/2020 12:00:00 AM EST eCW1 ([facility]) Unknown [address] [facility] [address] 09/29/2020 12:00:00 AM EST eCW1 ([facility]) [facility] [address] [place] [address] 09/29/2020 12:00:00 AM EST eCW1 ([facility]) ([facility]) [facility] Scheduled Visit [address] [place] [address] 09/17/2020 12:00:00 AM EST eCW1 ([facility]) ([facility]) [facility] Scheduled Visit [address] [place] [phone] 09/10/2020 12:00:00 AM EST eCW1 ([facility]) Outpatient Attender: Denise Sharpe FNPReferrer: SHANNAN Rodriguez MD 09/07/2020 03:53:16 PM EST [facility] Outpatient Attender: Marcella Botello HOMEMAKER COMPANION-C [id number] 11/07/2019 12:00:[address] [facility] Outpatient [address] [facility] [id number] 08/27/2020 12:00:00 AM EST eCW1 ([facility]) [facility] [address] [place] [address] 08/27/2020 12:00:00 AM EST eCW1 ([facility]) Outpatient [address] [facility] [address] 08/17/2020 12:00:00 AM EST eCW1 ([facility]) Unknown [address] [facility], [facility] [address] 08/11/2020 12:00:00 AM EST eCW1 ([facility]) Outpatient Attender: Denise Sharpe FNPReferrer: SHANNAN Rodriguez MD 08/07/2020 03:03:36 PM EDT [facility] Unknown [address] [facility] [address] 08/05/2020 12:00:00 AM EDT eCW1 ([facility]) Outpatient Attender: Denise Sharpe FNPReferrer: SHANNAN Rodriguez MD 07/07/2020 09:45:04 AM EDT [facility] Recurring Patient Attender: Braydon Avitia FNPReferrer: Franco Arcos CASAC 07/07/2020 08:35:47 AM EDT [facility] Rec[facility] Patient Attender: Braydon Avitia FNPReferrer: Franco Arcos CASAC 07/07/2020 08:35:36 AM EDT [facility] Rec[facility]ring Patient Attender: Braydon Avitia FNPReferrer: [facility] CASAC 07/06/2020 04:18:33 PM EDT [facility] [place] Unknown [address] [facility] [address] 06/30/2020 12:00:00 AM EDT eCW1 ([facility]) Unknown [address] [facility] [address] 06/30/2020 12:00:00 AM EDT eCW1 ([facility]) Unknown [address] [facility] [address] 06/30/2020 12:00:00 AM EDT eCW1 ([facility]) Outpatient Attender: Tato CANELA [id number] 12:00:00 AM EDT - 06/04/2020 02:42:[address] [facility] Outpatient Attender: Che Castro NPReferrer: SHANNAN FENTON MD 05/18/2020 08:46:23 AM EDT [facility] [place] Unknown [address] [facility] [address] 04/30/2020 12:00:00 AM EDT eCW1 ([facility]) Outpatient [address] [facility] [address] 04/22/2020 12:00:00 AM EDT eCW1 ([facility]) Outpatient Attender: JF DE LEON MD Main Office 04/21/2020 03:15:00 PM EDT MEDENT ([facility] Outpatient Attender: Denise Sharpe FNPReferrer: SHANNAN Rodriguez MD 04/15/2020 08:56:30 AM EDT [facility] Recurring Patient Attender: Braydon Avitia FNPReferrer: Franco Arcos SANDRA 04/14/2020 02:35:18 PM EDT [facility] Rec[facility] Patient Attender: Braydon Aguillonbrigettejanice FNPReferrer: Franco thompsonra Arcos EDILBERTOAC 04/14/2020 02:35:10 PM EDT [facility] [place] [address] [facility] [address] 03/31/2020 12:00:00 AM EDT eCW1 ([facility]) Outpatient [address] [facility] [address] 03/26/2020 12:00:00 AM EDT eCW1 ([facility]) Outpatient Attender: MAMIE POOL MDReferrer: Dawson POOL MD [id number] 03/25/2020 09:49:00 AM EDT - 03/25/2020 11:59:[address] [facility] Patient discharged. Unknown [address] [facility] [address] 03/11/2020 12:00:00 AM EDT eCW1 ([facility]) [place] [address] [facility] [address] 03/11/2020 12:00:00 AM EDT eCW1 ([facility]) Outpatient Attender: Denise Sharpe FNPReferrer: SHANNAN Rodriguez MD 03/09/2020 03:27:39 PM EDT [facility] [place] [address] [facility] [place] [address] 03/06/2020 12:00:00 AM EDT eCW1 ([facility]) Outpatient Attender: MAMIE POOL MD [id number] 09:46:25 AM EDT [facility] [place] [address] [facility] [address] 02/18/2020 12:00:00 AM EDT eCW1 ([facility]) [facility] [place] [address] [facility] [address] 02/11/2020 12:00:00 AM EDT eCW1 ([facility] [address] [facility] [address] 02/11/2020 12:00:00 AM EDT eCW1 ([facility]) Outpatient Attender: Denise Sharpe FNPReferrer: SHANNAN Rodriguez MD 02/07/2020 06:19:27 PM EDT [facility] [address] [facility] [address] 02/05/2020 12:00:00 AM EDT eCW1 ([facility]) Outpatient Attender: Denise Sharpe FNPReferrer: SHANNAN Rodriguez MD 01/05/2020 08:22:19 PM EDT [facility] [address] [facility] [address] 12/24/2019 12:00:00 AM EDT eCW1 ([facility]) [facility] [address] [facility] [address] 12/18/2019 12:00:00 AM EDT eCW1 ([facility]) [facility] [address] [facility] [address] 12/18/2019 12:00:00 AM EDT eCW1 ([facility] [address] [place] [address], [place] [address] 11/21/2019 12:00:00 AM EST eCW1 ([facility]) [facility] [address] [facility] [address] 11/19/2019 12:00:00 AM EST eCW1 ([facility]) [facility] [address] [facility] [address] 11/18/2019 12:00:00 AM EST eCW1 ([facility]) [facility] [address] [place] [address] 11/05/2019 12:00:00 AM EST eCW1 ([facility]) [facility] [address] [place] [address] 11/01/2019 12:00:00 AM EST eCW1 ([facility]) [address] [address] 10/29/2019 12:00:00 AM EST eCW1 ([facility]) Outpatient Attender: Denise Sharpe FNPReferrer: SHANNAN Rodriguez MD 10/24/2019 07:51:07 AM EST [facility] [address] [address] 10/24/2019 12:00:00 AM EST eCW1 ([facility]) [address] [address] 10/18/2019 12:00:00 AM EST eCW1 ([facility]) Recurring Patient Attender: Braydon Avitia FNPReferrer: Franco FLORES 10/08/2019 02:30:30 PM EST [facility] [address] [address] 09/30/2019 12:00:00 AM EST eCW1 ([facility]) Outpatient Attender: Denise Sharpe FNPReferrer: Annabella FLORES 09/18/2019 08:47:24 AM EST [facility] Recurring Patient Attender: Braydon Avitia FNPReferrer: Franoc FLORES 09/17/2019 10:04:00 AM EST [facility] Rec[facility]ring Patient Attender: Braydon Avitia FNPReferrer: Franco FLORES 09/17/2019 10:03:57 AM EST [facility] [address] [address] 09/11/2019 12:00:00 AM EST eCW1 ([facility]) [facility] [place] [address] [facility] [address] 09/11/2019 12:00:00 AM EST eCW1 ([facility]) [facility] [place] [address] [place] [address] 09/08/2019 12:00:00 AM EST eCW1 ([facility]) Outpatient Attender: ZAYNAB QUINTANA MDReferrer: MAMIE RIGGS MD [id number] 08/29/2019 10:12:22 AM EST - 08/29/2019 11:59:[address] [facility] Patient discharged. Immunizations Vaccine Date Status Description Data Source(s) influenza, recombinant, quadrIvalent,injectable, prese rvative free 07/02/2020 11:50:00 AM EDT completed eCW1 ([facility]) influenza, recombinant, quadrIvalent,injectable, prese rvative free 07/02/2020 11:50:00 AM EDT completed eCW1 ([facility]) influenza, recombinant, quadrIvalent,injectable, prese rvative free 07/02/2020 11:50:00 AM EDT completed eCW1 ([facility]) influenza, recombinant, quadrIvalent,injectable, prese rvative free 07/02/2020 11:50:00 AM EDT completed eCW1 ([facility]) influenza, recombinant, quadrIvalent,injectable, prese rvative free 07/02/2020 11:50:00 AM EDT completed eCW1 ([facility]) influenza, recombinant, quadrIvalent,injectable, prese rvative free 07/02/2020 11:50:00 AM EDT completed eCW1 ([facility]) influenza, recombinant, quadrIvalent,injectable, prese rvative free 07/02/2020 11:50:00 AM EDT completed eCW1 ([facility]) influenza, recombinant, quadrIvalent,injectable, prese rvative free 07/02/2020 11:50:00 AM EDT completed eCW1 ([facility]) influenza, recombinant, quadrIvalent,injectable, prese rvative free 07/02/2020 11:50:00 AM EDT completed eCW1 ([facility]) influenza, recombinant, quadrIvalent,injectable, prese rvative free 07/02/2020 11:50:00 AM EDT completed eCW1 ([facility]) influenza, recombinant, quadrIvalent,injectable, prese rvative free 07/02/2020 11:50:00 AM EDT completed eCW1 ([facility]) influenza, recombinant, quadrIvalent,injectable, prese rvative free 07/02/2020 11:50:00 AM EDT completed eCW1 ([facility]) influenza, recombinant, quadrIvalent,injectable, prese rvative free 07/02/2020 11:50:00 AM EDT completed eCW1 ([facility]) influenza, recombinant, quadrIvalent,injectable, prese rvative free 07/02/2020 11:50:00 AM EDT completed eCW1 ([facility]) influenza, recombinant, quadrIvalent,injectable, prese rvative free 07/02/2020 11:50:00 AM EDT completed eCW1 ([facility]) influenza, recombinant, quadrIvalent,injectable, prese rvative free 07/02/2020 11:50:00 AM EDT completed eCW1 ([facility]) Medications Medication Brand Name Start Date Product [...] 10/19/2020 12:00:00 AM EST ORAL active MEDENT ([facility]) [place] 10/19/2020 12:00:00 AM EST active MEDENT ([facility]) Acetaminophen 325 MG / Hydrocodone Bitartrate 5 MG Oral Tabl et [Hutchins] Hutchins 10/19/2020 12:00:00 AM EST active MEDENT ([facility]) Prednisone 20 MG Oral Tablet Prednisone 10/19/2020 12:00:00 AM EST active MEDENT ([facility], [facility]) 200 ACTUAT Albuterol 0.09 MG/ACTUAT Mete red Dose Inhaler [ProAir] ProAir HFA 108 (90 Base) MCG/ACT ProAir HFA 108 (90 Base) MCG/ACT 10/16/2020 12:00:00 AM EST 1.0 {puff_as_needed} active Pro Air HFA 108 (90 Base) MCG/ACT [facility] 200 ACTUAT Albuterol 0.09 MG/ACTUAT Mete red Dose Inhaler [ProAir] ProAir HFA 108 (90 Base) MCG/ACT ProAir HFA 108 (90 Base) MCG/ACT 10/16/2020 12:00:00 AM EST 1.0 {puff_as_needed} active Pro Air HFA 108 (90 Base) MCG/ACT eCW1 [facility]) 200 ACTUAT Albuterol 0.09 MG/ACTUAT Mete red Dose Inhaler [ProAir] ProAir HFA 108 (90 Base) MCG/ACT ProAir HFA 108 (90 Base) MCG/ACT 10/16/2020 12:00:00 AM EST 1.0 {puff_as_needed} active Pro Air HFA 108 (90 Base) MCG/ACT eCW1 [facility]) 200 ACTUAT Albuterol 0.09 MG/ACTUAT Mete red Dose Inhaler [ProAir] ProAir HFA 108 (90 Base) MCG/ACT ProAir HFA 108 (90 Base) MCG/ACT 10/16/2020 12:00:00 AM EST 1.0 {puff_as_needed} active Pro Air HFA 108 (90 Base) MCG/ACT eCW1 [facility]) 200 ACTUAT Albuterol 0.09 MG/ACTUAT Mete red Dose Inhaler [ProAir] ProAir HFA 108 (90 Base) MCG/ACT ProAir HFA 108 (90 Base) MCG/ACT 10/16/2020 12:00:00 AM EST 1.0 {puff_as_needed} active Pro Air HFA 108 (90 Base) MCG/ACT eCW1 ([facility]) 30 mg 10/10/2020 12:00:00 AM EST [...] MAXIMUM DAILY DOSE = 1 SOLD: 08/10/2020 [facility] 60 mg 07/13/2020 12:00:00 AM EDT [...] INJECT 22 UNITS SUBCUTANE OUSLY ONCE DAILY [facility] Losartan Potassium 25 MG Oral Tablet losartan (COZAAR) 25 MG tablet losartan (COZAAR) 25 MG tablet 04/30/2020 12:00:00 AM EDT active TAKE 1 TABLET BY MOUTH ONCE DAILY FOR [address] [facility] Hydrocortisone 10 MG/ML / Neomycin 3.5 M G/ML / Polymyxin B 57373 UNT/ML Otic Suspension Nqybymru-Xvorfjecw-BK 3.5-86911-4 Dqsqaejk-Tdhbxhcwp-TT 3.5-95477-0 04/22/2020 12:00:00 AM EDT active Nvxlxwoz-Hkypxsdqf-WB 3.5-67190-6 eCW1 ([facility]) Hydrocortisone 10 MG/ML / Neomycin 3.5 M G/ML / Polymyxin B 07827 UNT/ML Otic Suspension Csfkjxqd-Wtnvlvxvb-YV 3.5-70740-6 Ipbyyzys-Ljmlvljoc-WI 3.5-33032-5 04/22/2020 12:00:00 AM EDT active Gqsvskjs-Nkgoznmvp-TD 3.5-59179-0 eCW1 ([facility]) Hydrocortisone 10 MG/ML / Neomycin 3.5 M G/ML / Polymyxin B 93888 UNT/ML Otic Suspension Gdfcxaot-Rdlazjlmk-DM 3.5-86430-3 Zpejjgek-Zlsycmsbb-ME 3.5-45497-5 04/22/2020 12:00:00 AM EDT active Wdhufzfv-Zopfuvpqv-BH 3.5-00722-1 eCW1 ([facility]) Hydrocortisone 10 MG/ML / Neomycin 3.5 M G/ML / Polymyxin B 01416 UNT/ML Otic Suspension Flixwznx-Ecnajgkaf-BW 3.5-19039-7 Nnshwyza-Raulzfkvg-GQ 3.5-40411-9 04/22/2020 12:00:00 AM EDT active Zcejvhao-Cmernjjug-GX 3.5-84265-7 eCW1 ([facility]) Hydrocortisone 10 MG/ML / Neomycin 3.5 M G/ML / Polymyxin B 91282 UNT/ML Otic Suspension Egqrqnpk-Ognhmcqmn-PY 3.5-13766-7 Jyhcbipx-Zlfomqnbo-KS 3.5-66834-9 04/22/2020 12:00:00 AM EDT active Nwoygtku-Tlmyclckd-NR 3.5-37857-4 eCW1 ([facility]) Hydrocortisone 10 MG/ML / Neomycin 3.5 M G/ML / Polymyxin B 80909 UNT/ML Otic Suspension Tbluzqfg-Ohkqfkzmg-FT 3.5-16515-5 Ifwdmfoy-Koeazvkvt-OL 3.5-43479-6 04/22/2020 12:00:00 AM EDT active Goofqjlz-Dfygqgdxb-CZ 3.5-51472-1 eCW1 ([facility]) Hydrocortisone 10 MG/ML / Neomycin 3.5 M G/ML / Polymyxin B 83205 UNT/ML Otic Suspension Opojfcni-Sdhhatsam-HW 3.5-12428-7 Tuwegddh-Rzrjwpuud-KA 3.5-64643-6 04/22/2020 12:00:00 AM EDT active Wkmtnexs-Cdbmfnpye-RY 3.5-44207-2 eCW1 ([facility]) Hydrocortisone 10 MG/ML / Neomycin 3.5 M G/ML / Polymyxin B 50533 UNT/ML Otic Suspension Nxsmzvem-Yrpojnrax-FX 3.5-40170-9 Sldmuumi-Vboyxwfre-FZ 3.5-24504-7 04/22/2020 12:00:00 AM EDT active Vrlphaaz-Kfnffbzne-PH 3.5-74199-4 eCW1 ([facility]) Hydrocortisone 10 MG/ML / Neomycin 3.5 M G/ML / Polymyxin B 30252 UNT/ML Otic Suspension Ypkggcpo-Mckrbptnk-NF 3.5-53277-4 Hpabkwom-Ryoobkekg-XC 3.5-50796-3 04/22/2020 12:00:00 AM EDT active Wqdlryjv-Dhiqrwcxd-IM 3.5-20311-6 eCW1 ([facility]) Hydrocortisone 10 MG/ML / Neomycin 3.5 M G/ML / Polymyxin B 57996 UNT/ML Otic Suspension Jiihfsjp-Lfvkqrvql-GT 3.5-76942-3 Vhziijbv-Ljvporzgs-GK 3.5-41207-8 04/22/2020 12:00:00 AM EDT active Ceiuwdzf-Whaexmmjx-VU 3.5-45485-6 eCW1 ([facility]) Hydrocortisone 10 MG/ML / Neomycin 3.5 M G/ML / Polymyxin B 22535 UNT/ML Otic Suspension Rqvvnpvl-Twubkbnzz-EW 3.5-46327-1 Qpolwnco-Ksravpziy-ZO 3.5-77240-1 04/22/2020 12:00:00 AM EDT active Digqfjto-Jkiwgtcfq-DT 3.5-82196-7 eCW1 ([facility]) Hydrocortisone 10 MG/ML / Neomycin 3.5 M G/ML / Polymyxin B 00605 UNT/ML Otic Suspension Mpjkcsnl-Ehlblchbk-EH 3.5-66408-0 Vjrqtjuk-Ecijsmcqh-II 3.5-19513-3 04/22/2020 12:00:00 AM EDT active Egamcsff-Tlsrgiehn-GA 3.5-36685-8 eCW1 ([facility]) Hydrocortisone 10 MG/ML / Neomycin 3.5 M G/ML / Polymyxin B 63281 UNT/ML Otic Suspension Arxtpwii-Zfmkzvomf-GD 3.5-21944-8 Yztormmp-Bvwgyngzx-TM 3.5-13545-8 04/22/2020 12:00:00 AM EDT active Nhtpeqns-Ilnctpjsg-NB 3.5-75809-4 eCW1 ([facility]) Hydrocortisone 10 MG/ML / Neomycin 3.5 M G/ML / Polymyxin B 41019 UNT/ML Otic Suspension Wiwrombr-Gunvhirmk-DD 3.5-59589-5 Aeijctbd-Ruvyiytwj-NI 3.5-87438-4 04/22/2020 12:00:00 AM EDT active Brcqrleo-Rspbrcunt-GQ 3.5-54587-0 eCW1 ([facility]) Hydrocortisone 10 MG/ML / Neomycin 3.5 M G/ML / Polymyxin B 73249 UNT/ML Otic Suspension Unuljwri-Svgwgmzfr-OZ 3.5-44431-3 Dlsgbxjq-Hkjxaytny-HV 3.5-51449-8 04/22/2020 12:00:00 AM EDT active Fafoguoh-Qkswxtdfb-AS 3.5-11724-8 eCW1 ([facility]) Hydrocortisone 10 MG/ML / Neomycin 3.5 M G/ML / Polymyxin B 40519 UNT/ML Otic Suspension Typiceqs-Vpuxzkryd-QV 3.5-86141-9 Rniderdd-Wnfpeuizb-UA 3.5-60578-9 04/22/2020 12:00:00 AM EDT active Hkmmbubw-Qhmtiktvz-EL 3.5-93484-8 eCW1 ([facility]) Hydrocortisone 10 MG/ML / Neomycin 3.5 M G/ML / Polymyxin B 31899 UNT/ML Otic Suspension Zaehulri-Ywtabpouk-HR 3.5-43987-8 Qorhqxvi-Bphkhmacx-PB 3.5-37091-5 04/22/2020 12:00:00 AM EDT active Dawauxqg-Lzxrallnn-MA 3.5-08120-1 eCW1 ([facility]) Hydrocortisone 10 MG/ML / Neomycin 3.5 M G/ML / Polymyxin B 52093 UNT/ML Otic Suspension Sosnuwid-Vqzdtjkgj-SX 3.5-21431-8 Zccmvrsj-Pjqurghzu-YF 3.5-35305-3 04/22/2020 12:00:00 AM EDT active Vxtvoxtv-Bjucwzuer-BV 3.5-67078-3 eCW1 ([facility]) 5-325 mg 04/18/2020 12:00:00 AM EDT [...] EVERY DAY AT BEDTIME FOR [address] [facility] 60 mg 04/15/2020 12:00:00 AM EDT capsule,delayed [...] CAPSULE BY MOUTH EVERY DAY SOLD: 06/21/2020 [facility] tizanidine 2 MG Oral Tablet TIZANIDINE HCL 03/31/2020 12:00:00 AM EDT tablet 60 TAKE 1-2 TABLETS BY MOUTH AT BEDTIME NEEDED FOR SPASM MAXIMUM DAILY DOSE = 2 TAKE 1-2 TABLETS BY MOUTH AT BEDTIME NEEDED FOR SPASM MAXIMUM DAILY DOSE = 2 SOLD: 08/05/2020 [facility] 2 mg 03/31/2020 12:00:00 AM [...] 3.0 {tablets} suspended PredniSONE 10 MG eCW1 ([facility]) Prednisone 10 MG Oral Tablet PredniSONE 10 MG PredniSONE 10 MG 03/11/2020 12:00:00 AM EDT 3.0 {tablets} active P redniSONE 10 MG eCW1 ([facility]) Prednisone 10 MG Oral Tablet PredniSONE 10 MG PredniSONE 10 MG 03/11/2020 12:00:00 AM EDT 3.0 {tablets} suspended PredniSONE 10 MG eCW1 ([facility]) Prednisone 10 MG Oral Tablet PredniSONE 10 MG PredniSONE 10 MG 03/11/2020 12:00:00 AM EDT 3.0 {tablets} active P redniSONE 10 MG eCW1 ([facility]) Simvastatin 20 MG Oral Tablet simvastatin (ZOCOR) 20 M G tablet simvastatin (ZOCOR) 20 MG tablet 03/06/2020 12:00:00 AM EDT 20 mg Oral active Take [address] mg [address] mouth [address] [facility] Losartan Potassium 25 MG Oral Tablet Losartan Potassium 25 M G 02/11/2020 12:00:00 AM EDT 1.0 {tablet} active Lo sartan Potassium 25 MG eCW1 ([facility]) Losartan Potassium 25 MG Oral Tablet Losartan Potassium 25 M G 02/11/2020 12:00:00 AM EDT 1.0 {tablet} active Lo sartan Potassium 25 MG eCW1 ([facility]) Losartan Potassium 25 MG Oral Tablet Losartan Potassium 25 M G 02/11/2020 12:00:00 AM EDT 1.0 {tablet} active Lo sartan Potassium 25 MG eCW1 ([facility]) Losartan Potassium 25 MG Oral Tablet Losartan Potassium 25 M G 02/11/2020 12:00:00 AM EDT active 1 tablet eCW1 ([facility]) Losartan Potassium 25 MG Oral Tablet Losartan Potassium 25 M G 02/11/2020 12:00:00 AM EDT 1.0 {tablet} active Lo sartan Potassium 25 MG eCW1 ([facility]) Losartan Potassium 25 MG Oral Tablet Losartan Potassium 25 M G 02/11/2020 12:00:00 AM EDT 1.0 {tablet} active Lo sartan Potassium 25 MG eCW1 ([facility]) Losartan Potassium 25 MG Oral Tablet Losartan Potassium 25 M G 02/11/2020 12:00:00 AM EDT 1.0 {tablet} active Lo sartan Potassium 25 MG eCW1 ([facility]) Losartan Potassium 25 MG Oral Tablet Losartan Potassium 25 M G 02/11/2020 12:00:00 AM EDT 1.0 {tablet} active Lo sartan Potassium 25 MG eCW1 ([facility]) Losartan Potassium 25 MG Oral Tablet Losartan Potassium 25 M G 02/11/2020 12:00:00 AM EDT active 1 tablet eCW1 ([facility]) Losartan Potassium 25 MG Oral Tablet Losartan Potassium 25 M G 02/11/2020 12:00:00 AM EDT 1.0 {tablet} active Lo sartan Potassium 25 MG eCW1 ([facility]) Losartan Potassium 25 MG Oral Tablet Losartan Potassium 25 M G 02/11/2020 12:00:00 AM EDT 1.0 {tablet} active Lo sartan Potassium 25 MG eCW1 ([facility]) 5-325 mg 01/03/2020 12:00:00 AM EDT [...] EST acti ve Test Strips - eCW1 ([facility]) Test Strips - UNK 11/05/2019 12:00:00 AM EST acti ve Test Strips - eCW1 ([facility]) Test Strips - UNK 11/05/2019 12:00:00 AM EST acti ve Test Strips - eCW1 ([facility]) Test Strips - 11/05/2019 12:00:00 AM EST acti ve Test Strips - eCW1 ([facility]) Test Strips - [facility] 11/05/2019 12:00:00 AM EST acti ve Test Strips - eCW1 ([facility]) Test Strips - 11/05/2019 12:00:00 AM EST acti ve Test Strips - eCW1 ([facility]) Test Strips - 11/05/2019 12:00:00 AM EST acti ve Test Strips - eCW1 ([facility]) Test Strips - 11/05/2019 12:00:00 AM EST acti ve as directed eCW1 ([facility]) Test Strips - 11/05/2019 12:00:00 AM EST acti ve Test Strips - eCW1 ([facility]) Test Strips - 11/05/2019 12:00:00 AM EST acti ve Test Strips - eCW1 ([facility]) Test Strips - 11/05/2019 12:00:00 AM EST acti ve Test Strips - eCW1 ([facility]) Test Strips - 11/05/2019 12:00:00 AM EST acti ve Test Strips - eCW1 ([facility]) Test Strips - 11/05/2019 12:00:00 AM EST acti ve Test Strips - eCW1 ([facility]) Test Strips - 11/05/2019 12:00:00 AM EST acti ve Test Strips - eCW1 ([facility]) Test Strips - 11/05/2019 12:00:00 AM EST acti ve as directed eCW1 ([facility]) Test Strips - 11/05/2019 12:00:00 AM EST acti ve Test Strips - eCW1 ([facility]) Test Strips - 11/05/2019 12:00:00 AM EST acti ve Test Strips - eCW1 ([facility]) Test Strips - [facility] 11/05/2019 12:00:00 AM EST acti ve Test Strips - eCW1 ([facility]) Test Strips - K 11/05/2019 12:00:00 AM EST acti ve Test Strips - eCW1 ([facility]) Test Strips - [facility] 11/05/2019 12:00:00 AM EST acti ve Test Strips - eCW1 ([facility]) Test Strips - 11/05/2019 12:00:00 AM EST acti ve Test Strips - eCW1 ([facility]) Test Strips - 11/05/2019 12:00:00 AM EST acti ve Test Strips - eCW1 ([facility]) Test Strips - 11/05/2019 12:00:00 AM EST acti ve as directed eCW1 ([facility]) Test Strips - 11/05/2019 12:00:00 AM EST acti ve Test Strips - eCW1 ([facility]) Test Strips - 11/05/2019 12:00:00 AM EST acti ve as directed eCW1 ([facility]) Test Strips - 11/05/2019 12:00:00 AM EST acti ve Test Strips - eCW1 ([facility]) Test Strips - 11/05/2019 12:00:00 AM EST acti ve Test Strips - eCW1 ([facility]) Test Strips - 11/05/2019 12:00:00 AM EST acti ve as directed eCW1 ([facility]) Test Strips - 11/05/2019 12:00:00 AM EST acti ve as directed eCW1 ([facility]) Test Strips - 11/05/2019 12:00:00 AM EST acti ve Test Strips - eCW1 ([facility]) Test Strips - 11/05/2019 12:00:00 AM EST acti ve Test Strips - eCW1 ([facility]) doxycycline hyclate 100 MG Oral Capsule Doxycycline Hy clate 100 MG Doxycycline Hyclate 100 MG 10/18/2019 12:00:00 AM EST active 1 capsule eCW1 ([facility]) doxycycline hyclate 100 MG Oral Capsule Doxycycline Hy clate 100 MG Doxycycline Hyclate 100 MG 10/18/2019 12:00:00 AM EST 1.0 {capsule} suspended Doxycycline Hyclate 100 MG eCW1 ([facility]) doxycycline hyclate 100 MG Oral Capsule Doxycycline Hy clate 100 MG Doxycycline Hyclate 100 MG 10/18/2019 12:00:00 AM EST 1.0 {capsule} suspended Doxycycline Hyclate 100 MG eCW1 ([facility]) valacyclovir 1000 MG Oral Tablet [Valtrex] Valtrex 1 GM Valt deya 1 GM 10/18/2019 12:00:00 AM EST suspended 2 tab lets eCW1 ([facility]) doxycycline hyclate 100 MG Oral Capsule Doxycycline Hy clate 100 MG Doxycycline Hyclate 100 MG 10/18/2019 12:00:00 AM EST suspende d 1 capsule eCW1 ([facility]) valacyclovir 1000 MG Oral Tablet [Valtrex] Valtrex 1 GM Valt deya 1 GM 10/18/2019 12:00:00 AM EST 2.0 {tablets} suspended Valtrex 1 GM eCW1 ([facility]) valacyclovir 1000 MG Oral Tablet [Valtrex] Valtrex 1 GM Valt deya 1 GM 10/18/2019 12:00:00 AM EST suspended 2 tab lets eCW1 ([facility]) doxycycline hyclate 100 MG Oral Capsule Doxycycline Hy clate 100 MG Doxycycline Hyclate 100 MG 10/18/2019 12:00:00 AM EST suspende d 1 capsule eCW1 ([facility]) doxycycline hyclate 100 MG Oral Capsule Doxycycline Hy clate 100 MG Doxycycline Hyclate 100 MG 10/18/2019 12:00:00 AM EST 1.0 {capsule} suspended Doxycycline Hyclate 100 MG eCW1 ([facility]) valacyclovir 1000 MG Oral Tablet [Valtrex] Valtrex 1 GM Valt deya 1 GM 10/18/2019 12:00:00 AM EST 2.0 {tablets} suspended Valtrex 1 GM eCW1 ([facility]) doxycycline hyclate 100 MG Oral Capsule Doxycycline Hy clate 100 MG Doxycycline Hyclate 100 MG 10/18/2019 12:00:00 AM EST suspende d 1 capsule eCW1 ([facility]) doxycycline hyclate 100 MG Oral Capsule Doxycycline Hy clate 100 MG Doxycycline Hyclate 100 MG 10/18/2019 12:00:00 AM EST suspende d 1 capsule eCW1 ([facility]) valacyclovir 1000 MG Oral Tablet [Valtrex] Valtrex 1 GM Valt deya 1 GM 10/18/2019 12:00:00 AM EST suspended 2 tab lets eCW1 ([facility]) doxycycline hyclate 100 MG Oral Capsule Doxycycline Hy clate 100 MG Doxycycline Hyclate 100 MG 10/18/2019 12:00:00 AM EST 1.0 {capsule} suspended Doxycycline Hyclate 100 MG eCW1 ([facility]) doxycycline hyclate 100 MG Oral Capsule Doxycycline Hy clate 100 MG Doxycycline Hyclate 100 MG 10/18/2019 12:00:00 AM EST suspende d 1 capsule eCW1 ([facility]) valacyclovir 1000 MG Oral Tablet [Valtrex] Valtrex 1 GM Valt deya 1 GM 10/18/2019 12:00:00 AM EST active 2 tablet s eCW1 ([facility]) valacyclovir 1000 MG Oral Tablet [Valtrex] Valtrex 1 GM Valt deya 1 GM 10/18/2019 12:00:00 AM EST suspended 2 tab lets eCW1 ([facility]) valacyclovir 1000 MG Oral Tablet [Valtrex] Valtrex 1 GM Valt deya 1 GM 10/18/2019 12:00:00 AM EST suspended 2 tab lets eCW1 ([facility]) valacyclovir 1000 MG Oral Tablet [Valtrex] Valtrex 1 GM Valt deya 1 GM 10/18/2019 12:00:00 AM EST 2.0 {tablets} suspended Valtrex 1 GM eCW1 ([facility]) valacyclovir 1000 MG Oral Tablet [Valtrex] Valtrex 1 GM Valt deya 1 GM 10/18/2019 12:00:00 AM EST suspended 2 tab lets eCW1 ([facility]) valacyclovir 1000 MG Oral Tablet [Valtrex] Valtrex 1 GM Valt deya 1 GM 10/18/2019 12:00:00 AM EST 2.0 {tablets} suspended Valtrex 1 GM eCW1 ([facility]) doxycycline hyclate 100 MG Oral Capsule Doxycycline Hy clate 100 MG Doxycycline Hyclate 100 MG 10/18/2019 12:00:00 AM EST suspende d 1 capsule eCW1 ([facility]) 5-325 mg 10/03/2019 12:00:00 AM EST [...] 04/08/2019 02:50:53 PM EDT 0 completed montelukast DACOMA ([facility] Insurance Providers Payer name Policy type / Coverage type Policy ID Covered libertarian ID Covered libertarian's relationship to ruvalcaba Policy Ruvalcaba Plan Information MEDICARE [id number] [facility] [id number] WI2 [id number] SELF PAY ONLY [id number] SP [id number] MEDICARE [id number] S [id number] D66 UMR [id number] W [id number] UMR [id number] MEDICARE [id number] MEDICARE [id number] Gail [id number] D66 UMR [id number] Spo [id number] Medicare C [id number] SELF [id number] D66 UMR F [id number] SPOUSE [id number] UMR [id number] Spo [id number] MEDICARE [id number] Gail [id number] D66 MEDICARE C [id number] S [id number] D66 UMR O [id number] S [id number] MEDICARE [id number] Gail [id number] A Jailyn Koenig () Workers Compensation [id number] Self [id number] [place] (pr) Medigap Part B [id number] Family Dependent [id number] Umr (pr) Medigap Part B [id number] Family Dependent [id number] Medicare Dme Supplies Medigap Part B [id number] Self [id number] [place] [id number] Self [id number] ANSI-Commercial [id number] ANSI-Commercial [id number] ANSI-Medicare Part B [id number] Medicare Medigap Part B [id number] Self [id number] Umr Commercial [id number] Family Dependent [id number] [employer] [id number] Commercial [employer]ria Co. .[id number] [employer] [id number] Commercial Ins urance Co. [id number] Medicare [id number] Medicare Part B [id number] UMR [id number] Commercial Insur ance Co. [id number] ANSI-Commercial [id number] ANSI-Commercial [id number] ANSI-Medicare Part B [id number] ANSI-Commercial [id number] ANSI-Medicare Part B [id number] ANSI-Commercial [id number] ANSI-Commercial [id number] ANSI-Medicare Part B [id number] ANSI-Commercial [id number] ANSI-Commercial [id number] ANSI-Commercial [id number] ANSI-Medicare Part B [id number] Medicare Medigap Part B [id number] Self [id number] ANSI-Commercial [id number] ANSI-Medicare Part B [id number] ANSI-Commercial [id number] ANSI-Commercial [id number] ANSI-Medicare Part B [id number] ANSI-Commercial [id number] ANSI-Commercial uwu3287q-62z8-4fz5-u01w-74z71i42jbs5 ijp1951a-40c5-7tz4-j10e-84r12a03adg9 ANSI-Medicare Part B 82134w1n-n1s1-3k40-vt6f-290d865717i5 17973a9h-x0w4-2d70-oh6s-468l878911k7 ANSI-Commercial 5c8e77k6-d1u0-1047-044t-zo1x0251qys9 6h4q51w5-e5g3-7852-371l-le1r7785ouw6 ANSI-Medicare Part B r426j8v8-338i-3358-m50u-05yf36s50xps o284k1e6-398c-4020-f26w-66sk36q59vvf ANSI-Commercial it772906-59p4-2709-a3d9-0h520lx99s00 bz986391-65h4-1761-m6n6-5g659qb62q08 ANSI-Commercial 32x1z383-v23q-9209-r4w7-2v63923r7qcs 07y4p412-c51t-8808-z4y5-5b39391k9wga ANSI-Commercial 97851t32-1tv3-2b9u-g0t9-v381g1822018 84487a04-4db4-2v3g-s1b3-t553u9373970 ANSI-Commercial 629628q2-urco-4o32-b11h-p1b97u1wq811 849067s6-fcng-4f14-q23b-t2z27i5mp082 ANSI-Medicare Part B 5se736d3-17xq-8862-73x6-5pw0j4w291q6 2fq743z2-00es-5668-02z4-1oy7d5i564d7 ANSI-Commercial 8403l095-rp02-86zs-9uus-3h0f50167gaw 2327c685-ht61-06fp-2miu-4l2g97375fsb ANSI-Commercial 5359i05k-yq4y-3tqj-3769-pm0f31389w0t 0432o33h-um3a-8urv-2729-os8h36190y6d ANSI-Medicare Part B [id number]-z3s5-94gr-7176-438854p778jy 692880ad-l0t4-34ds-2616-182392u765bj Medicare C [id number] SELF [id number] D66 UMR F [id number] SELF [id number] ANSI-Commercial 587672z0-7p8v-95v0-i4s0-258t98c5xj59 069453a5-7r4p-94b2-p8g2-261l72w2jk54 ANSI-Medicare Part B 7e14xi47-29b2-1k19-274c-20ek4z0674kl 8f07dk32-96d8-6a71-554a-30zd9t5974mg ANSI-Commercial 1n841585-c39y-4g57-e849-18486103d113 9f807410-g92p-7m06-f058-96524876m326 Medicare Medigap Part B [id number] Self 3JG [id number] ANSI-Commercial 585u9dzt-70y4-7t76-etd2-2125219i37qs 332y3jdc-81j5-4m35-ylv9-4511801i33wz ANSI-Medicare Part B 5u258592-8613-6i13-v2w9-ds1v6357x6v6 1q032937-3765-1d75-u8t3-zv3q9154y8s7 ANSI-Commercial 5l3y908e-1058-1691-z077-2z958yjl637q 3k0y977w-4015-1710-r427-3o897ioc670q ANSI-Medicare Part B 5xflmc73-ky30-7nb5-0174-073206k957b2 3orcdd09-kb94-2bs8-8239-165686s502u2 ANSI-Commercial 8ucj4635-2xj1-2418-u582-g782ox8h0d48 4nuv0554-4ms9-5600-m860-t583fk1g5b56 ANSI-Commercial q658r5u6-o39h-0ouz-o259-9erk97v1kzr4 r809l1u3-q04n-5yuz-a124-2iyp01u5ftf0 ANSI-Commercial 1n776ywz-0srj-2m66-07b2-24l00x9pb890 0b958dfz-7kdy-6y65-51v8-97z95q4eb550 ANSI-Commercial ubu1acmk-6162-2o35-5972-mcw381943063 bjl9heul-2940-9a29-8147-aav512821802 ANSI-Medicare Part B 109i971q-1003-9am1-xr7x-i9r841b3j4o9 031g852c-4303-7gr7-mq0l-v0i384h2e2r8 ANSI-Medicare Part B 66t4g3op-o854-0ch0-4401-4683908p187y 67z8t5zf-a616-3tr2-4908-6099659s834h ANSI-Commercial q7513446-s629-2383-2lsh-8239o8q6l50i e3065260-q913-1508-5pjb-8797e9v6p88b ANSI-Commercial s422e7a7-7pi1-2610-7qxo-1m0x9w62n9w3 s866x2i3-2ti2-7313-0tln-3m5b3p87y1b1 ANSI-Commercial 65n81142-246p-4g10-9784-l27i6t1i5731 93c97273-796z-3n21-5842-e08p5p3a4924 ANSI-Medicare Part B 06137e81-12gg-115x-uo04-4io33v9k5rf7 91578y57-87er-382y-dr41-6yt18v8j1uw2 ANSI-Commercial 5h3r68m8-4nr8-06fv-b62m-044432q20358 3k2k56v1-7op0-80ke-d84y-848861q06239 ANSI-Medicare Part B 6412i907-2e5g-5583-g67v-3k0x9rs22l9t 4625o888-1q8k-8481-y30q-9f4w8yx31d7p ANSI-Commercial mtjv2806-0fn0-740a-kcuu-6tmfx892ja1l vplu8328-8ad1-484s-zsdv-4psdx024nz4h ANSI-Commercial 3nh4ev46-6612-7811-o280-60j966d99xrb 6px5xb55-8661-4284-w615-08e973r90cdn [facility] [id number] [facility] [id number] ANSI-Medicare Part B f2374qz8-7459-8i77-6ph1-j3eq51q304uw i9081uq7-8679-8s92-6ya6-b0qh11v821tt ANSI-Commercial an3563pu-610g-512n-c4i7-148s788q62i7 wm7691em-806f-704u-u1c0-621p295e36y9 ANSI-Commercial 33o7y8v9-7y4w-2z04-54v7-1d99u92717c3 64r9z2m6-8r9s-1k63-50d0-6h51a45315p2 MEDICARE [id number] A ANSI-Medicare Part B 888rx049-c374-979a-vpyy-97760yip4oxs 619dp507-h806-432g-nlef-40785xqw6vah ANSI-Commercial 97ld2612-z3w5-5077-92h0-5bi05h047fwb 70vm9896-v8e2-7820-36e6-3pt65u705dff ANSI-Commercial wp62bi94-2l51-4x8z-2205-44098625p689 vd64zi38-5y78-3o2h-9072-41833587o007 Umr Commercial [id number] Family Dependent [id number] Medicare [place] Medicare Primary [id number] Self [id number] MEDICARE C [id number] S [id number] A ANSI-Commercial [id number] ANSI-Medicare Part B [id number] ANSI-Commercial [id number] ANSI-Medicare Part B [id number] ANSI-Commercial [id number] ANSI-Commercial [id number] ANSI-Commercial [id number] ANSI-Medicare Part B [id number] ANSI-Commercial [id number] [employer] PPO O [id number] P [id number] [employer] [id number] HU2 [id number] HONYTRUST [id number] SP [id number] [employer] [id number] HU2 [id number] HONYTRUST O [id number] S [id number] HONYTRUST [id number] SP [id number] MEDICARE A [id number] Self [id number] A HONY TRUST SAFE WC W [id number] Empl [id number] [employer] U [id number] Spouse [id number] WORKER'S COMP [id number] Emp [id number] WORKER'S COMP PI PI Medicare [facility] Medicare Primary [id number] Self [id number] [employer] (HMO) [id number] Fa rita Dependent [id number] [employer] [id number] Spo [id number] MEDICARE [id number] Gail [id number] A WORKER'S COMP [id number] Emp OCM [id number] WORKER'S COMP PI PI WORKER'S COMP [id number] Emp [id number] Medicare [place] Medicare Primary Self [employer] (HMO) Fa rita Dependent [employer] [id number] SP [id number] MEDICARE -O/P [id number] 18 [id number] [employer] -O/P [id number] 01 [id number] [employer] PPO P [id number] P [id number] SELF PAY 2 UNAVAILABLE 1 UNAVAILA BLE KAZAKH PROGRESSIVE 2 [id number] 4 [id number] SAFE HONEY TRUST 8 [id number] 1 2 [id number] [employer] - COMPENSATION [id number] [employer] PPO 2 [id number] 2 [id number] [employer]-O/P [id number] 01 [id number] [employer]-I/P [id number] 01 [id number] MEDICARE PART A-O/P [id number] 18 [id number] Problems, Conditions, and Diagnoses Code Display Name Description Problem Type Effective Dates Data Source(s) F43.10 14107395 Post-traumatic stress disorder, unspecifi ed Problem 08/19/2020 12:00:00 AM EST [facility] [id number] Urticaria due to cold and heat Urticaria due to cold a nd heat Problem 04/21/2020 12:00:00 AM EDT [facility] ([facility] ) E66.01 [id number] Morbid obesity Problem 03/27/2020 12:00:00 A M EDT [facility]) N95.1 [id number] Perimenopause Problem 02/11/2020 12:00: 00 AM EDT [facility]) I10 85757642 Hypertension, unspecified type Problem 02/10 12:00:00 AM EDT [facility] ([facility]) N95.1 [id number] Perimenopause Problem 02/11/2020 12:00: 00 AM EDT [facility]) I10 51993545 Hypertension, unspecified type Problem 02/10 12:00:00 AM EDT [facility] ([facility]) G90.50 [id number] Reflex sympathetic dystrophy Problem 11/05/2019 12:00:00 AM EST [facility]) G90.50 [id number] Reflex sympathetic dystrophy Problem 11/05/2019 12:00:00 AM EST [facility]) M50.30 Other cervical disc degeneration, unspec ified cervical region Other cervical disc degeneration, unspec Diagnosis 09/07/2020 02:22:[address] [facility] M54.2 Cervicalgia Cervicalgia Diagnosis 06/04/2020 01:59:[address] 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 Surgeries/Procedures Procedure Description Date Indications Data Source(s) MRI SPINAL CANAL CERVICAL W/O CONTRAST MATRL MRI CERVICAL S PINE WO CONTRAST Routine 03/25/2020 12:09 PM EDT Spinal cord tumor DDD (degenerative disc disease), cervical 03/25/2020 04:09:3 8 PM EDT DDD (degenerative disc disease), cervicalSpinal cord tumor [facility] DDD (degenerative disc disease), cervica l Spinal cord tumor MRI SPINAL CANAL THORACIC W/O CONTRAST MATRL MRI THORACIC S PINE WO CONTRAST Routine 03/25/2020 10:39 AM EDT Spinal cord tumor DDD (degenerative disc disease), cervical 03/25/2020 02:39:2 8 PM EDT DDD (degenerative disc disease), cervicalSpinal cord tumor [facility] DDD (degenerative disc disease), cervica l Spinal cord tumor [facility] MGMT SRVC 20 MIN 02/18/2020 12:00:00 AM EDT [facility] Ccm add 20min 02/18/2020 12:00:00 AM EDT [facility] ([facility]) Influenza A+B 10/18/2019 12:00:00 AM EST [facility]CW1 ([facility]) CMPLX [facility] W/O PT VSIT 09/30/2019 12:00:00 AM ES T [facility]CW1 ([facility]) CMPLX [facility] ADDL 30 MIN 09/30/2019 12:00:00 AM ES T [facility]CW1 ([facility]) STREP A ASSAY W/OPTIC 09/08/2019 12:00:00 AM EST [facility]CW1 ([facility]) Results ID Date Data Source [id number] 10/26/2020 07:17:00 PM [facility] Name Value Range Interpretation Code Description Data Melissa rce(s) Supporting Document(s) UMALB Urine Creatinine result Normal (applies t o non-numeric results) [facility] Interpret with care as there is no estab lished reference range associated with this assay's methodology that pertains to this particular sex and/or age. UMALB Microalbumin,Ur result <1.7 [place] UMALB Alb/Cre Ratio,Ur result Normal (applies t o non-numeric results) [facility] Test Performed By: [facility] [address] [place] [address] Director: Cameron Corona MD Reference Ranges for Microalbumin,spot: Normal <30 ug/mg creatinine Microalbuminuria 30-300 ug/mg creatinine Clinical Albuminuria >300 ug/mg creatinine ID Date Data Source [id number] 10/26/2020 02:27:00 PM [facility] Name Value Range Interpretation Code Description Data Melissa rce(s) Supporting Document(s) Hemoglobin A1c 4.4-6.2 Above high normal [facility] Estimated Avg Glucose 192 mg/dL 126-240 Normal (applies to non-numeric results) [facility] ID Date Data Source [id number] 10/26/2020 02:27:00 PM [facility] Name Value Range Interpretation Code Description Data [facility] rce(s) Supporting Document(s) Sodium 137 mmol/L 136-145 Normal (applies to non-numeric resul ts) [facility] Potassium 3.5-5.1 Normal (applies to non-numeric resul ts) [facility] Chloride 101 mmol/L 98-107 Normal (applies to non-numeric resul ts) [facility] Carbon Dioxide CO2 21-32 Normal (applies to non-numer ic results) [facility] Anion Gap 5.0-16.0 Normal (applies to non-numeric resul ts) [facility] BUN 10 mg/dL 7-18 Normal (applies to non-numeric results) [facility] Creatinine,Serum 0.7-1.2 Normal (applies to non-numeric results) [facility] GFR >60 Normal (applies to non-numeric results) [facility] Glucose Level 297 mg/dL 60-99 Above high normal [facility] Reference range is only applicable when patient is fasting Note the following drug interference: Sulfasalazine Sulfapyridine Can see falsely depressed Can see falsely elevated result with up to 17% results with up to 11% decrease in measurement increase in measurement Recommend patients be collected for this test prior to administration of either drug. Calcium 8.5-10.1 Normal (applies to non-numeric resul ts) [facility] Bilirubin,Total 0.1-1.9 Normal (applies to non-numeric results) [facility] SGOT(AST) 14 U/L 15-37 Below low normal [facility] kathrine Note the following drug interference: Sulfasalazine Sulfapyridine Can see falsely depressed Can see falsely elevated result with up to 10% results with up to 10% decrease in measurement increase in measurement Recommend patients be collected for this test prior to administration of either drug. SGPT(ALT) 25 U/L 12-78 Normal (applies to non-numeric resul ts) [facility] Note the following drug interference: Sulfasalazine Sulfapyridine Can see falsely depressed Can see falsely elevated result with up to 29% results with up to 10% decrease in measurement increase in measurement Recommend patients be collected for this test prior to administration of either drug. Alkaline Phosphatase 154 U/L 38-126 Above high normal [facility] can increase Alkaline Phosp le vels up to 2 times the normal adult value. Normal values for children and adolescents are 2 to 3 times the normal adult value. Total Protein 6.0-8.2 Normal (applies to non-numeric re sults) [facility] Albumin Level 3.4-5.0 Normal (applies to non-numeric re sults) [facility] ID Date Data Source [id number] 10/26/2020 02:27:00 PM EST [facility] Name Value Range Interpretation Code Description Data Melissa rce(s) Supporting Document(s) Triglycerides 190 mg/dL <150 Above high normal [facility] Cholesterol 155 mg/dL 100-200 Normal (applies to non-numeric resu lts) [facility] LDL Cholesterol Calculated 77 0-130 Normal (applies to n on-numeric results) [facility] HDL Cholesterol 40 mg/dL 40-60 Normal (applies to non-numeric results) [facility] Cholesterol/HDL Ratio 3.6-6.7 Normal (applies to non-nu meric results) [facility] ID Date Data Source [id number] 10/26/2020 01:21:00 PM EST [facility] Name Value Range Interpretation Code Description Data Melissa rce(s) Supporting Document(s) White Blood Count 3.5-10.5 Normal (applies to non-numeri c results) [facility] Red Blood Count 3.90-5.00 Normal (applies to non-numeric results) [facility] Hemoglobin 12.0-15.5 Normal (applies to non-numeric resul ts) [facility] Hematocrit 34.9-44.5 Normal (applies to non-numeric resul ts) [facility] Mean Corpuscular Volume 81.2-95.1 Normal (applies to non- numeric results) [facility] Mean Corpuscular Hgb 25.6-32.2 Normal (applies to non-num judy results) [facility] Mean Corpuscular Hgb Conc 32.0-36.0 Normal (applies to no n-numeric results) [facility] Red Cell Distribution Width 11.9-15.5 Normal (appli es to non-numeric results) [facility] Platelet Count 337 x10 3/uL 150-450 Normal (applies to non-numeric results) [facility] Mean Platelet Volume 9.4-12.4 Normal (applies to non-num judy results) [facility] Neutrophils% (Auto) 31.0-71.0 Normal (applies to non-nume renae results) [facility] Lymphocytes% (Auto) 20.0-55.0 Normal (applies to non-nume renae results) [facility] Monocytes% (Auto) 4.0-12.0 Normal (applies to non-numeri c results) [facility] Eosinophils% (Auto) 1.0-8.0 Normal (applies to non-nume renae results) [facility] Basophils% (Auto) 0.0-2.0 Normal (applies to non-numeri c results) [facility] Immature Granulocytes% (Auto) 0.0-2.0 Normal (syed lies to non-numeric results) [facility] Neutrophils# (Auto) 1.50-6.20 Above high normal [facility] Lymphocytes# (Auto) 1.20-4.00 Normal (applies to non-nume renae results) [facility] Monocytes# (Auto) 0.00-0.90 Normal (applies to non-numeri c results) [facility] Eosinophils# (Auto) 0.00-0.50 Normal (applies to non-nume renae results) [facility] Basophils# (Auto) 0.00-0.20 Normal (applies to non-numeri c results) [facility] Immature Granulocytes# (Auto) 0.00-7.00 No rmal (applies to non-numeric results) [facility] ID Date Data Source [id number] 10/19/2020 12:00:00 AM EST [facility] Name Value Range Interpretation Code Description Data Melissa rce(s) Supporting Document(s) SARS coronavirus 2 Ag Negative [facility] This lab was ordered by [facility] and reported by [facility]. ID Date Data Source [id number] 10/10/2020 12:00:00 AM EST [facility] Name Value Range Interpretation Code Description Data Melissa rce(s) Supporting Document(s) SARS coronavirus 2 RNA [Presence] in Res piratory specimen by ALIA with probe detection NEGATIVE [facility] This lab was ordered by [facility] and reported by [employer]. ID Date Data Source [id number] 10/10/2020 12:00:00 AM EST [facility] Name Value Range Interpretation Code Description Data Melissa rce(s) Supporting Document(s) Carestart Rapid COVID Antigen Test [facility] This lab was reported by [facility]. 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 retirement (current) use of opiate analgesic (V58.69) (Z79.891) 9. retirement current use of opiate analgesic (V58.69) (Z79.891) [...] Current Meds Bydureon 2 MG Subcutaneous Pen-injector;Therapy: 75Wph4934 to Recorded DULoxetine HCl - 30 MG Oral Capsule Delayed Release Particles; TAKE 1 CAPSULEDAILY along with the 60 mg capsule for TDD to be 90 mg MDD:1;Therapy: 79Cna3873 to (Evaluate:05Nov2020) Requested for: 90Wcv0408; LastRx:[id number] Ordered DULoxetine HCl - 60 MG Oral Capsule Delayed Release Particles; TAKE 1 CAPSULEDAILY. MDD:1;Therapy: 22Dec2011 to (Evaluate:03Nov2020) Requested for: 74Baa9274; LastRx:92Kzp5322 Ordered Fluticasone Propionate 50 MCG/ACT Nasal Suspension;Therapy: 59Uft4334 to Recorded HYDROcodone-Acetaminophen 5-325 MG Oral Tablet; one po daily prn pain MDD:1;Therapy: 55Hkn2792 to (Evaluate:01Edc9937) Requested for: 94Pjf9097; LastRx:62Svr2829 OrderedLD 09/06/2020 hydrOXYzine HCl - 25 MG Oral Tablet; Take 3 at bedtime;Therapy: 63Jpw0670 to Recorded Levocetirizine Dihydrochloride 5 MG Oral Tablet;Therapy: (Recorded:22Dnw4229) to Recorded Losartan Potassium 25 MG Oral Tablet;Therapy: 99Pwk1838 to Recorded metFORMIN HCl - 1000 MG Oral Tablet;Therapy: 02Jan2013 to Recorded Montelukast Sodium 10 MG Oral Tablet;Therapy: 42Tty0007 to Recorded Multi Vitamin/Minerals TABS;Therapy: (Recorded:06Uxm2253) to Recorded PriLOSEC 40 MG CPDR;Therapy: (Recorded:46Lgk5695) to Recorded Simvastatin 40 MG Oral Tablet;Therapy: (Recorded:20Pjw5071) to Recorded tiZANidine HCl - 2 MG Oral Tablet; TAKE 1-2 TABLETS AT HS NEEDED FOR SPASMMDD:2;Therapy: 50Abz0255 to (Evaluate:00Phe6719) Requested for: 24Mar2020; LastRx:24Mar2020 Ordered Topiramate 50 MG Oral Tablet; ONE PO EVERY HS MDD:1;Therapy: 22Dec2011 to (Evaluate:56Crh9312) Requested for: 24Mar2020; LastRx:24Mar2020 Ordered Touchai SoloStar 300 UNIT/ML Subcutaneous Solution Pen-injector;Therapy: 27Dec2017 to RecordedFormulary Override Reason: No Formulary Equivalent Exists traZODone HCl - 100 MG Oral Tablet;Therapy: 30Bjv7894 to Recorded Vitamin C TABS;Therapy: (Recorded:17Jtb2243) to Recorded ZyrTEC Allergy 10 MG Oral Tablet;Therapy: 35Uvt3878 to Recorded Past Medical History Denied: History [...] History Current non-drinker of alcohol (V49.89) (Z78.9) [id number] Denied: History of Drug Use Former smoker [...] 1. Renew: HYDROcodone-Acetaminophen 5-325 MG Oral Tablet ([facility]utchins); one po daily prn pain MDD:1LD 09/06/2020 2. Renew: tiZANidine HCl - 2 MG Oral Tablet; TAKE 1-2 TABLETS AT HS NEEDED FOR SPASM M DD:2 3. Renew: Topiramate 50 MG Oral Tablet; ONE PO EVERY HS MDD:1 4. Other Supply; Status:Complete; Done: 10Acb3755Znrb Health Aide 3-4 times a week to [...] patient, and any necessary changes were made. [facility] HYDRAULIC LIFT OPERATOR Information: HYDRAULIC LIFT OPERATOR was consulted by my designee and I [...] agrees to discontinue medication and to contact [facility], friend(s) or family member(s), and/or 1 if [...] and encouraged. PHQ-9 (Denies suicidal ideation) - COTTON GINNER: The patient was counseled on the following: [...] rce(s) Supporting Document(s) ID Date Data Source [id number] 08/07/2020 03:03:36 PM EDT [place] [facility] [...] Bydureon 2 MG Subcutaneous Pen- injector; Therapy: 98Wux8030 to Recorded 2. DULoxetine HCl - 60 MG Oral Capsule Delayed Release Particles; TAKE 1 CAPSULE DAILY. MDD:1; Therapy: 08Hpf5359 to (Evaluate:50Sgx3635) Requested for: 09Axk1849; Last Rx:19Ize7112 Ordered 3. Fluticasone Propionate 50 MCG/ACT Nasal Suspension; Therapy: 98Puk7737 to Recorded 4. HYDROcodone-Acetaminophen 5-325 MG Oral Tablet; one po daily prn pain MDD:1; Therapy: 59Bdp1508 to (Evaluate:15Ryd2478) Requested for: 92Qpj0171; Last Rx:54Mbw3756 Ordered 5. hydrOXYzine HCl - 25 MG Oral Tablet; Take 3 at bedtime; Therapy: 90Nss3039 to Recorded 6. Levocetirizine Di hydrochloride 5 MG Oral Tablet; Therapy: (Recorded:78Mfm3399) to Recorded 7. Losartan Potassium 25 MG Oral Tablet; Therapy: 14Apr2020 to Recorded 8. metFORMIN HCl - 1000 MG Oral Tablet; Therapy: 02Jan2013 to Recorded 9. Montelukast Sodium 10 MG Oral Tablet; Therapy: 65Voe0864 to Recorded 10. Multi Vitamin/Minerals TABS; Therapy: (Recorded:44Vpp2542) to Recorded 11. PriLOSEC 40 MG CPDR; Therapy: (Recorded:15Jan2016) to Recorded 12. Simvastatin 40 MG Oral Tablet; Therapy: (Recorded:94Kzb7997) to Recorded 13. tiZANidine HCl - 2 MG Oral Tablet; TAKE 1-2 TABLETS AT HS NEEDED FOR SPASM MDD:2; Therapy: 14Nov2012 to (Evaluate:72Jgp8771) Requested for: 24Mar2020; Last Rx:86Jxn6944 Ordered 14. Topiramate 50 MG Oral Tablet; ONE PO EVERY HS MDD:1; Therapy: 22Dec2011 to (Evaluate:42Ttw5937) Requested for: 24Mar2020; Last Rx:70Xjp6278 Ordered 15. Toujeo SoloStar 300 UNIT/ML Subcutaneous Solution Pen-injector; Therapy: 27Dec2017 to Recorded 16. traZODone HCl - 100 MG Oral Tablet; Therapy: 14Sep2018 to Recorded 17. Vitamin C TABS; Therapy: (Recorded:24Csd3125) to Recorded 18. ZyrTEC Allergy 10 MG Oral Tablet; Therapy: 27Kqg7286 to Recorded Allergies Iodinated Contrast Media Hives; [...] electronic false requests, deterring potential fraudulent behavior. [facility] HYDRAULIC LIFT OPERATOR Information: HYDRAULIC LIFT OPERATOR was consulted by my designee and I [...] without delusions or hallucinations. Denies suicidal/homicidal ideation. [facility] Prior UDS Results Detail Form: This [...] Renew: HYDROcodone- Acetaminophen 5-325 MG Oral Tablet ([place]ins); one po daily prn pain MDD: 3. UDS-LAB WC / NF ([facility] Urine Drug Screen); [Do Not Release]; Specimen Source:Urine; Status:In Progress - Specimen/Data Collected; Done: 3 [facility] Treatment Plan (2): In my opinion based [...] and is considered standard of care. 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 Creatinine [...] Leg pain, diffuse, left (729.5) (M79.605) 8. 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 MDD:1;Therapy: 22Dec2011 to (Evaluate:12Aug2020) Requested for: 11Trz5800; LastRx:87Lyu8033 Ordered Fluticasone Propionate 50 MCG/ACT Nasal Suspension;Therapy: 68Ahv0287 to Recorded HYDROcodone-Acetaminophen 5-325 MG Oral Tablet; one po daily prn pain MDD:1;Therapy: 79Tbl4731 to (Evaluate:44Wwz6567) Requested for: 28Dva9121; LastRx:97Uxu0708 OrderedLD pt sts 2 weeks ago hydrOXYzine HCl - 25 MG Oral Tablet; Take 3 at bedtime;Therapy: 58Xvw2870 to Recorded Levocetirizine Dihydrochloride 5 MG Oral Tablet;Therapy: (Recorded:84Uys9700) to Recorded Losartan Potassium 25 MG Oral Tablet;Therapy: 38Fvx4566 to Recorded metFORMIN HCl - 1000 MG Oral Tablet;Therapy: 02Jan2013 to Recorded Montelukast Sodium 10 MG Oral Tablet;Therapy: 65Hfk6175 to Recorded Multi Vitamin/Minerals TABS;Therapy: (Recorded:15Wbd3444) to Recorded PriLOSEC 40 MG CPDR;Therapy: (Recorded:57Ews1160) to Recorded Simvastatin 40 MG Oral Tablet;Therapy: (Recorded:96Yne0620) to Recorded tiZANidine HCl - 2 MG Oral Tablet; TAKE 1-2 TABLETS AT HS NEEDED FOR SPASMMDD:2;Therapy: 38Nny5312 to (Evaluate:81Bia8022) Requested for: 24Mar2020; LastRx:92Xwo9738 Ordered Topiramate 50 MG Oral Tablet; ONE PO EVERY HS MDD:1;Therapy: 22Dec2011 to (Evaluate:86Ffg4038) Requested for: 24Mar2020; LastRx:24Mar2020 Ordered Toujeo SoloStar 300 UNIT/ML Subcutaneous Solution Pen-injector;Therapy: 27Dec2017 to RecordedFormulary Override Reason: No Formulary Equivalent Exists traZODone HCl - 100 MG Oral Tablet;Therapy: 78Cwp0489 to Recorded Vitamin C TABS;Therapy: (Recorded:57Jxi3577) to Recorded ZyrTEC Allergy 10 MG Oral Tablet;Therapy: 48Nmm4754 to Recorded Past Medical History Denied: History [...] History Current non-drinker of alcohol (V49.89) (Z78.9) [id number] Denied: History of Drug Use Former smoker (V15.82) (Z87.891) Marital History - Currently Not Currently Employed 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 Renew: HYDROcodone-Acetaminophen 5-325 MG Oral Tablet ([place]); one po daily prn pain MDD:1LD pt sts 2 weeks ago 3. UDS-LAB WC / NF ([facility] Urine Drug Screen); [Do Not Release]; Specimen Source:Urine; Status:In Progress - Specimen/Data Collected; Done: 06Jul2020 4. 30 Day RX Management Follow-up Status: Hold For - Scheduling Requested for: 06Jul2020). Schedule (FUP) 60 days from today: : 44Qtp0627). Is an additional appointment needed....? : Yes). [...] patient, and any necessary changes were made. [facility] HYDRAULIC LIFT OPERATOR Information: HYDRAULIC LIFT OPERATOR was consulted by my designee and I [...] sign and comply with all of the [facility] terms of a controlled substance treatment [...] Weight loss was discussed and encouraged. - COTTON GINNER: The patient was counseled on the following: [...] rce(s) Supporting Document(s) ID Date Data Source [id number] 05/18/2020 08:46:23 AM EDT [place] [facility] [...] 1. Bydureon 2 MG Subcutaneous Pen-injector; Therapy: 68Mux4454 to Recorded 2. DULoxetine HCl - 60 MG Oral Capsule Delayed Release Particles; TAKE 1 CAPSULE DAILY. MDD:1; Therapy: 22Dec2011 to (Evaluate:12Aug2020) Requested for: 14Vyq5397; Last Rx:56Fpl1278 Ordered 3. Fluticasone Propionate 50 MCG/ACT Nasal Suspension; Therapy: 29Biz5617 to Recorded 4. HYDROcodone-Acetaminophen 5-325 MG Oral Tablet; one po daily prn pain MDD:1; Therapy: 38Vqs4402 to (Evaluate:39Kho4227) Requested for: 16Kye5019; Last Rx:00Fgl0687 Ordered 5. hydrOXYzine HCl - 25 MG Oral Tablet; Take 3 at bedtime; Therapy: 28Myi6303 to Recorded 6. Levocetirizine Dihydr ochloride 5 MG Oral Tablet; Therapy: (Recorded:48Iot0550) to Recorded 7. Losartan Potassium 25 MG Oral Tablet; Therapy: 14Apr2020 to Recorded 8. metFORMIN HCl - 1000 MG Oral Tablet; Therapy: 02Jan2013 to Recorded 9. Montelukast Sodium 10 MG Oral Tablet; Therapy: 29Keh8289 to Recorded 10. Multi Vitamin/Minerals TABS; Therapy: (Recorded:93Gel5946) to Recorded 11. PriLOSEC 40 MG CPDR; Therapy: (Recorded:60Bxy9438) to Recorded 12. Simvastatin 40 MG Oral Tablet; Therapy: (Recorded:71Wzk1460) to Recorded 13. tiZANidine HCl - 2 MG Oral Tablet; TAKE 1-2 TABLETS AT HS NEEDED FOR SPASM MDD:2; Therapy: 00Pub1180 to (Evaluate:87Dmi8962) Requested for: 24Mar2020; Last Rx:24Mar2020 Ordered 14. Topiramate 50 MG Oral Tablet; ONE PO EVERY HS MDD:1; Therapy: 22Dec2011 to (Evaluate:86Zpv6597) Requested for: 24Mar2020; Last Rx:01Xqz5652 Ordered 15. Toujeo SoloStar 300 UNIT/ML Subcutaneous Solution Pen-injector; Therapy: 27Dec2017 to Recorded 16. traZODone HCl - 100 MG Oral Tablet; Therapy: 41Qny7695 to Recorded 17. Vitamin C TABS; Therapy: (Recorded:98Ksw7680) to Recorded 18. ZyrTEC Allergy 10 MG Oral Tablet; Therapy: 09Pro1867 to Recorded Allergies Iodinated Contrast Media Hives; [...] electronic false requests, deterring potential fraudulent behavior. [facility] HYDRAULIC LIFT OPERATOR Information: HYDRAULIC LIFT OPERATOR was consulted by my designee and I [...] Leg pain, diffuse, left (729.5) (M79.605) 3. 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 Renew: HYDROcodone-Acetaminophen 5-325 MG Oral Tablet (Hutchins); one po daily prn pain MDD:1ld 05-14-2020 2. UDS-LAB WC / NF ([facility] Urine Drug Screen); [Do Not Release]; Specimen Source:Urine; Status:In Progress - Specimen/Data Collected; Done: 51Msy2520 [facility] Treatment Plan (2): UDS: This is an [...] Disability rating is 67 %. Dragon DisclaimerNYSWC [employer] Disclaimer: This document was dictated and electronically signed using Providajob Speaking software. A reasonable attempt at proof reading has been made to minimize errors. Please call with any questions. Signatures Electronically signed by : Che Castro NP; May 15 2020 2:23PM EST (Author) Electronically signed by : Zack Reagan MD; May 18 2020 8:46AM EST Name Value Range Interpretation Code Description Data Melissa rce(s) Supporting Document(s) ID Date Data Source [id number] 04/15/2020 08:56:30 AM EDT [facility], PCName: Kristen CloudDOB: 1970Provider: [...] Leg pain, diffuse, left (729.5) (M79.605) 8. retirement (current) use of opiate analgesic (V58.69) (Z79.891) 9. retirement current use of opiate analgesic (V58.69) (Z79.891) [...] Current Meds Bydureon 2 MG Subcutaneous Pen-injector;Therapy: 87Hgf0686 to Recorded DULoxetine HCl - 60 MG Oral Capsule Delayed Release Particles; TAKE 1 CAPSULEDAILY. MDD:1;Therapy: 22Dec2011 to (Evaluate:36Zco5856) Requested for: 16Ekz3573; LastRx:11Ndp8158 Ordered Fluticasone Propionate 50 MCG/ACT Nasal Suspension;Therapy: 51Vso1745 to Recorded HYDROcodone- Acetaminophen 5-325 MG Oral Tablet; one po daily prn pain MDD:1;Therapy: 88Fvv2986 to (Evaluate:24Cwt5096) Requested for: 09Mar2020; LastRx:77Ysv0368 OrderedLD 04/11/2020 hydrOXYzine HCl - 25 MG Oral Tablet; Take 3 at bedtime;Therapy: 70Tsn8026 to Recorded Levocetirizine Dihydrochloride 5 MG Oral Tablet;Therapy: (Recorded:35Ilj3617) to Recorded Losartan Potassium 25 MG Oral Tablet;Therapy: 58Sla5733 to Recorded metFORMIN HCl - 1000 MG Oral Tablet;Therapy: 02Jan2013 to Recorded Montelukast Sodium 10 MG Oral Tablet;Therapy: 93Iou5430 to Recorded Multi Vitamin/Minerals TABS;Therapy: (Recorded:65Avf4561) to Recorded PriLOSEC 40 MG CPDR;Therapy: (Recorded:61Pmo7276) to Recorded Simvastatin 40 MG Oral Tablet;Therapy: (Recorded:21Rpx3056) to Recorded tiZANidine HCl - 2 MG Oral Tablet; TAKE 1-2 TABLETS AT HS NEEDED FOR SPASMMDD:2;Therapy: 47Tsr5713 to (Evaluate:48Qby0584) Requested for: 24Mar2020; LastRx:24Mar2020 Ordered Topiramate 50 MG Oral Tablet; ONE PO EVERY HS MDD:1;Therapy: 22Dec2011 to (Evaluate:34Tfh7912) Requested for: 24Mar2020; LastRx:24Mar2020 Ordered Toujeo SoloStar 300 UNIT/ML Subcutaneous Solution Pen-injector;Therapy: 27Dec2017 to RecordedFormulary Override Reason: No Formulary Equivalent Exists traZODone HCl - 100 MG Oral Tablet;Therapy: 87Fwl4203 to Recorded Vitamin C TABS;Therapy: (Recorded:59Dex0530) to Recorded ZyrTEC Allergy 10 MG Oral Tablet;Therapy: 15Buf3461 to Recorded Past Medical History Denied: History [...] History Current non-drinker of alcohol (V49.89) (Z78.9) 5y5446 Denied: History of Drug Use Former smoker (V15.82) (Z87.891) Marital History - Currently Not Currently Employed 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 UDS-LAB WC / NF ([facility] Urine Drug Screen); [Do Not Release]; Specimen Source:Urine; Status:In Progress - Specimen/Data Collected; Done: 34Xcp0128 In my opinion based on subjective and objective findings from today's visit the patient is status quo. Medication:. Medication list was reviewed with the patient, and updates were made to reflect her current medication regimen. Allergy list was reviewed with patient, and any necessary changes were made. [facility] HYDRAULIC LIFT OPERATOR Information: HYDRAULIC LIFT OPERATOR was consulted by my designee and I [...] agrees to discontinue medication and to contact [facility], friend(s) or family member(s), and/or 1 if [...] Weight loss was discussed and encouraged. - COTTON GINNER: The patient was counseled on the following: [...] rce(s) Supporting Document(s) ID Date Data Source [id number] 03/25/2020 12:28:51 PM EDT [address] [id number] Name: JENA CLOUDDOB: 1970Sex: FOrdering Provider: MAMIE NEELYuthelisha Prov: MAMIE HERNANDEZYReferrhans Provider: MAMIE LEALrocjennifer Performed: MRI CERVICAL SPINE WO CONTRASTExam Date: 03/25/2020 12:09MRN: [id number] Number: [id number] Class: OutpatientAccount #: [id number] for Exam: Neck pain, prior surgery, neg [...] DAWNA DOMINGO On 03/25/2020 12:28 PMWorkstation ID: [id number] - [id number] Name Value Range Interpretation Code Description Data Melissa rce(s) Supporting Document(s) ID Date Data Source [id number] 03/25/2020 11:01:55 AM EDT [address] [id number] Name: JENA CLOUDDOB: 1970Sex: FOrdering Provider: MAMIE NEELYuthorizing Prov: MAMIE HERNANDEZYReferring Provider: MAMIE LEALrocedure Performed: MRI THORACIC SPINE WO CONTRASTExam Date: 03/25/2020 10:39MRN: [id number] Number: [id number] Class: OutpatientAccount #: [id number] for Exam: tumorTechnique: MRI images obtained on [...] DAWNA DOMINGO On 03/25/2020 11:01 AMWorkstation ID: [id number] - [id number] Name Value Range Interpretation Code Description Data Melissa rce(s) Supporting Document(s) ID Date Data Source [id number] 03/09/2020 03:27:39 PM EDT [facility] PCName: Kristen CloudDOB: 1970Provider: [...] distance. Telehealth visits are a way for [facility] to continue providing quality care to our patients while still practicing mandated social distancing, in emergency effort to keep both the patient and myself safe throughout the COVID- 19 pandemic. During this emergent initiation of Telemedicine, the office of civil rights has loosened the laws on HIPAA compliance to accommodate the continuation of medical care across the [place] throughout the COVID-19 pandemic. [facility] Telemedicine - TV Consent Established: Telehealth Consent Jena Cloud is an established patient of [facility], and was made aware co-pays and co-insurance may be waived by their insurer due to COVID-19, as well as, the potential privacy risks with the use of third-libertarian applications as a result of this Telehealth visit. The patient has verbalized consent to proceed with a Telehealth visit via audio with live video calling. 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 MDD:1;Therapy: 22Dec2011 to (Evaluate:04Zmp3499) Requested for: 16Jan2020; LastRx:16Jan2020; Status: ACTIVE - Transmit to Pharmacy - Awaiting Verification Ordered Fluticasone Propionate 50 MCG/ACT Nasal Suspension;Therapy: 17Sep2012 to Recorded HYDROcodone-Acetaminophen 5-325 MG Oral Tablet; one po daily prn pain MDD:1;Therapy: 05Jul2012 to (Evaluate:02Feb2020) Requested for: 03Jan2020; LastRx:03Jan2020 OrderedLD 1- 2wks ago hydrOXYzine HCl - 25 MG Oral Tablet; Take 3 at bedtime;Therapy: 32Qje1225 to Recorded Levocetirizine Dihydrochloride 5 MG Oral Tablet;Therapy: (Recorded:33Waa1797) to Recorded metFORMIN HCl - 1000 MG Oral Tablet;Therapy: 02Jan2013 to Recorded Montelukast Sodium 10 MG Oral Tablet;Therapy: 16Kdd7836 to Recorded Multi Vitamin/Minerals TABS;Therapy: (Recorded:42Rds1690) to Recorded PriLOSEC 40 MG CPDR;Therapy: (Recorded:15Jan2016) to Recorded Simvastatin 20 MG Oral Tablet;Therapy: (Recorded:14Aug2019) to Recorded tiZANidine HCl - 2 MG Oral Tablet; TAKE 1-2 TABLETS AT HS NEEDED FOR SPASMMDD:2;Therapy: 14Nov2012 to (Evaluate:15Mar2020) Requested for: 30Wkx9739; LastRx:17Sep2019 Ordered Topiramate 50 MG Oral Tablet; ONE PO EVERY HS MDD:1;Therapy: 22Dec2011 to (Evaluate:15Mar2020) Requested for: 08Dqj9458; LastRx:17Sep2019 Ordered Toujeo SoloStar 300 UNIT/ML Subcutaneous Solution Pen- injector;Therapy: 27Dec2017 to RecordedFormulary Override Reason: No Formulary Equivalent Exists traZODone HCl - 100 MG Oral Tablet;Therapy: 83Bfv1256 to Recorded Vitamin C TABS;Therapy: (Recorded:18Wpk8493) to Recorded ZyrTEC Allergy 10 MG Oral Tablet;Therapy: 32Lmp4815 to Recorded Past Medical History Denied: History [...] History Current non-drinker of alcohol (V49.89) (Z78.9) 9d1241 Denied: History of Drug Use Former smoker [...] 1. Renew: HYDROcodone-Acetaminophen 5-325 MG Oral Tablet (Hutchins); one po daily prn pain MDD:1LD 1-2wks ago 2. Follow-up in 1 month Follow Up Follow-up Status: Hold For - Scheduling Requested for: 61Crt5857Afnvusbc Appointment for 15 or 30 minutes : [...] patient, and any necessary changes were made. [facility] HYDRAULIC LIFT OPERATOR Information: HYDRAULIC LIFT OPERATOR was consulted by my designee and I [...] program and is encouraged to continue. - COTTON GINNER: The patient was counseled on the following: treatment plan and future treatment options. TIme:. Time: Start time: 1:43 P.M. End time: 1:53. P.M. Discussion/SummaryPatient was seen for telehealth visit today through a live video call via [employer]. Jena is a very pleasant 49 year-old [...] permanent disability. Disability rating is 67 %. [employer] DisclaimerNYSWC [employer] Disclaimer: This document was dictated and electronically signed using LoveByte software. A reasonable attempt at proof reading has been made to minimize errors. Please call with any questions. Signatures Electronically signed by : Denise Sharpe NP; Mar 09 2020 1:58PM EST (Author) Electronically signed by : Viktor Wick MD; Mar 09 2020 3:27PM EST Name Value Range Interpretation Code Description Data Melissa rce(s) Supporting Document(s) ID Date Data Source [id number] 02/07/2020 06:19:27 PM EDT [facility] PCName: Kristen noé LolitaB: [...] distance. Telehealth visits are a way for [facility] to continue providing quality care to our patients while still practicing mandated social distancing, in emergency effort to keep both the patient and myself safe throughout the COVID- 19 pandemic. During this emergent initiation of Telemedicine, the office of civil rights has loosened the laws on HIPAA compliance to accommodate the continuation of medical care across the [place] throughout the COVID-19 pandemic. [facility] Telemedicine - TV Consent Established: Telehealth Consent Jena Cloud is an established patient of [facility], and was made aware co-pays and co-insurance are waived due to COVID-19, as well as, the potential privacy risks with the use of third-libertarian applications as a result of this Telehealth visit. The patient has verbalized consent to proceed with a Telehealth visit via audio with live video calling. Location of Provider and Patient for this telehealth visit: Provider is located at my residence in [facility] Patient is located at home, in [place], [place] The following were present during this visit: patient was alone Application used for the telehealth visit: Netflix History of Present IllnessRecent test/procedures: Patient was [...] Leg pain, diffuse, left (729.5) (M79.605) 8. retirement (current) use of opiate analgesic (V58.69) (Z79.891) 9. retirement current use of opiate analgesic (V58.69) (Z79.891) [...] Current Meds Bydureon 2 MG Subcutaneous Pen-injector;Therapy: 16Tix8815 to Recorded DULoxetine HCl - 60 MG Oral Capsule Delayed Release Particles; TAKE 1 CAPSULEDAILY. MDD:1;Therapy: 22Dec2011 to (Evaluate:22Abk1134) Requested for: 16Jan2020; LastRx:16Jan2020; Status: ACTIVE - Transmit to Pharmacy - Awaiting Verification Ordered Fluticasone Propionate 50 MCG/ACT Nasal Suspension;Therapy: 18Bzn7377 to Recorded HYDROcodone-Acetaminophen 5-325 MG Oral Tablet; one po daily prn pain MDD:1;Therapy: 26Izp0529 to (Evaluate:45Pxj3820) Requested for: 03Jan2020; LastRx:03Jan2020 OrderedLD 1- 2wks ago hydrOXYzine HCl - 25 MG Oral Tablet; Take 3 at bedtime;Therapy: 06Vxm8462 to Recorded Levocetirizine Dihydrochloride 5 MG Oral Tablet;Therapy: (Recorded:00Mmf4102) to Recorded metFORMIN HCl - 1000 MG Oral Tablet;Therapy: 02Jan2013 to Recorded Montelukast Sodium 10 MG Oral Tablet;Therapy: 41Sjm3429 to Recorded Multi Vitamin/Minerals TABS;Therapy: (Recorded:12Zoj1187) to Recorded PriLOSEC 40 MG CPDR;Therapy: (Recorded:17Tnc2276) to Recorded Simvastatin 20 MG Oral Tablet;Therapy: (Recorded:14Aug2019) to Recorded tiZANidine HCl - 2 MG Oral Tablet; TAKE 1-2 TABLETS AT HS NEEDED FOR SPASMMDD:2;Therapy: 72Qnk9219 to (Evaluate:15Mar2020) Requested for: 74Cib4264; LastRx:61Cpd6392 Ordered Topiramate 50 MG Oral Tablet; ONE PO EVERY HS MDD:1;Therapy: 22Dec2011 to (Evaluate:15Mar2020) Requested for: 19Ggi1001; LastRx:35Nfz1355 Ordered Toujeo SoloStar 300 UNIT/ML Subcutaneous Solution Pen- injector;Therapy: 27Dec2017 to RecordedFormulary Override Reason: No Formulary Equivalent Exists traZODone HCl - 100 MG Oral Tablet;Therapy: 03Sck9348 to Recorded Vitamin C TABS;Therapy: (Recorded:16Fnt3344) to Recorded ZyrTEC Allergy 10 MG Oral Tablet;Therapy: 54Gnw3245 to Recorded Past Medical History Denied: History [...] History Current non-drinker of alcohol (V49.89) (Z78.9) 4b8881 Denied: History of Drug Use Former smoker [...] Status: Hold For - Scheduling Requested for: 42Oik4854Qrhtmrut Appointment for 15 or 30 minutes : [...] patient, and any necessary changes were made. [facility] HYDRAULIC LIFT OPERATOR Information: HYDRAULIC LIFT OPERATOR was consulted by my designee and I [...] agrees to discontinue medication and to contact [facility], friend(s) or family member(s), and/or 1 if [...] program and is encouraged to continue. - COTTON GINNER: The patient was counseled on the following: treatment plan and future treatment options. TIme:. Time: Start time: 10:33 A.M. End time: 10:40 A.M. Discussion/SummaryPatient was seen for telehealth visit today to the use of live video calling via [employer]. Jena is a very pleasant 49 year-old [...] permanent disability. Disability rating is 67 %. [employer] DisclaimerNYSWC [employer] Discl aimer: This document was dictated and electronically signed using Providajob Speaking software. A reasonable attempt at proof reading has been made to minimize errors. Please call with any questions. Signatures Electronically signed by : Denise Sharpe NP; Feb 07 2020 10:44AM EST (Author) Electronically signed by : Viktor Wick MD; Feb 07 2020 6:19PM EST Name Value Range Interpretation Code Description Data Melissa rce(s) Supporting Document(s) ID Date Data Source [id number] 01/05/2020 08:22:19 PM EDT [facility] PCName: Kristen CloudDOB: 1970Provider: Kingsley Sharpe: 01/03/2020 Chief Complaintchronic left leg pain Chief Complaint 2NYSW VAS PAIN Established: SHANAE completing section: [facility] Telemedicine - Explanation to patient regarding Telemedicine: Explanation to patient regaridng telemedicine Patient initiated contact with the office via phone call or via patient portal to schedule a Telehealth visit. I explained to the patient that telemedicine is the practice of using telecommunications technology to evaluate, diagnose and care for patients at a distance. Telehealth visits are a way for [facility] to continue providing quality care to our patients while still practicing mandated social distancing, in emergency effort to keep both the patient and myself safe throughout the COVID-19 pandemic. During this emergent initiation of Telemedicine, the office of civil rights has loosened the laws on HIPAA compliance to accommodate the continuation of medical care across the [place] throughout the COVID-19 pandemic. 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 MDD:1;Therapy: 22Dec2011 to (Evaluate:27Ucv4680) Requested for: 92Pmr6987; LastRx:90Mlj4790 Ordered Fluticasone Propionate 50 MCG/ACT Nasal Suspension;Therapy: 36Yao7564 to Recorded HYDROcodone-Acetaminophen 5-325 MG Oral Tablet; one po daily prn pain MDD:1;Therapy: 62Wyj0172 to (Evaluate:89Lbp1947) Requested for: 98Esg6454; LastRx:09Cpy0994 OrderedLD 1- 2wks ago hydrOXYzine HCl - 25 MG Oral Tablet; Take 3 at bedtime;Therapy: 2016 to Recorded Levocetirizine Dihydrochloride 5 MG Oral Tablet;Therapy: (Recorded:82Mdm7195) to Recorded metFORMIN HCl - 1000 MG Oral Tablet;Therapy: 02Jan2013 to Recorded Montelukast Sodium 10 MG Oral Tablet;Therapy: 49Dpc1158 to Recorded Multi Vitamin/Minerals TABS;Therapy: (Recorded:40Lbf9674) to Recorded PriLOSEC 40 MG CPDR;Therapy: (Recorded:15Jan2016) to Recorded Simvastatin 20 MG Oral Tablet;Therapy: (Recorded:14Aug2019) to Recorded tiZANidine HCl - 2 MG Oral Tablet; TAKE 1-2 TABLETS AT HS NEEDED FOR SPASMMDD:2;Therapy: 14Nov2012 to (Evaluate:15Mar2020) Requested for: 23Iuz5004; LastRx:12Ztp9849 Ordered Topiramate 50 MG Oral Tablet; ONE PO EVERY HS MDD:1;Therapy: 22Dec2011 to (Evaluate:15Mar2020) Requested for: 02Qbr6741; LastRx:93Vkb5966 Ordered Toujeo SoloStar 300 UNIT/ML Subcutaneous Solution Pen- injector;Therapy: 27Dec2017 to RecordedFormulary Override Reason: No Formulary Equivalent Exists traZODone HCl - 100 MG Oral Tablet;Therapy: 14Sep2018 to Recorded Vitamin C TABS;Therapy: (Recorded:76Gqb4639) to Recorded ZyrTEC Allergy 10 MG Oral Tablet;Therapy: 24Jzz9924 to Recorded Past Medical History Denied: History [...] History Current non-drinker of alcohol (V49.89) (Z78.9) 2w2078 Denied: History of Drug Use Former smoker [...] Renew: HYDROcodone-Acetamin ophen 5-325 MG Oral Tablet (Hutchins); one po daily prn pain MDD:1LD 1-2wks ago In my opinion based on subjective and objective findings from today's visit the patient is status quo. Medication:. Due to the current COVID-19 pandemic, telemedicine does not allow for the collection of urine drug screening for initiation or chronic use of opioid medications. Patient will be subject to urine drug screening at next in-office visit. [facility] HYDRAULIC LIFT OPERATOR Information: HYDRAULIC LIFT OPERATOR was consulted by my designee and I [...] agrees to discontinue medication and to contact [facility], friend(s) or family member(s), and/or 1 if [...] Weight loss was discussed and encouraged. - COTTON GINNER: The patient was counseled on the following: [...] Disability rating is 67 %. Dragon DisclaimerNYSWC [employer] Disclaimer: This document was dictated and electronically signed using Love[employer] software. A reasonable attempt at proof reading has been made to minimize errors. Please call with any questions. Signatures Electronically signed by : Denise Sharpe NP; Jan 03 2020 3:22PM EST (Author) Electronically signed by : Judy Pretty MD; Jan 05 2020 8:22PM EST Name Value Range Interpretation Code Description Data Melissa rce(s) Supporting Document(s) ID Date Data Source [id number] 10/24/2019 07:51:07 AM EST [facility] PCName: Kristen CloudDOB: 1970Provider: Bhargavi SharpeaDOS: 10/23/2019 Chief Complaint 2 MA completing section: todume History of Present IllnessThe patient is being seen today for workers compensation refill of prescriptions for controlled substances. The workers compensation date of injury is 03/09/2004. Current Meds 1. Bydureon 2 MG Subcutaneous Pen-injector; Therapy: 62Ovv3962 to Recorded 2. DULoxetine HCl - 60 MG Oral Capsule Delayed Release Particles; TAKE 1 CAPSULE DAILY. MDD:1; Therapy: 22Dec2011 to (Evaluate:15Jan2020) Requested for: 52Deq3913; Last Rx:17Wjd4442 Ordered 3. Fluticasone Propionate 50 MCG/ACT Nasal Suspension; Therapy: 38Iyp4326 to Recorded 4. HYDROcodone-Acetaminophen 5-325 MG Oral Tablet; one po daily prn pain MDD:1; Therapy: 74Sak1012 to (Evaluate:17Oct2019) Requested for: 27Lig7802; Last Rx:84Spd2803 Ordered 5. hydrOXYzine HCl - 25 MG Oral Tablet; Take 3 at bedtime; Therapy: 26Amk0112 to Recorded 6. Levocetirizine Dihydroch loride 5 MG Oral Tablet; Therapy: (Recorded:14Nah7608) to Recorded 7. metFORMIN HCl - 1000 MG Oral Tablet; Therapy: 02Jan2013 to Recorded 8. Montelukast Sodium 10 MG Oral Tablet; Therapy: 79Jkl1908 to Recorded 9. Multi Vitamin/Minerals TABS; Therapy: (Recorded:13Zix1554) to Recorded 10. PriLOSEC 40 MG CPDR; Therapy: (Recorded:28Yqt6850) to Recorded 11. Simvastatin 20 MG Oral Tablet; Therapy: (Recorded:05Jgd7737) to Recorded 12. tiZANidine HCl - 2 MG Oral Tablet; TAKE 1-2 TABLETS AT HS NEEDED FOR SPASM MDD:2; Therapy: 92Roo6433 to (Evaluate:15Mar2020) Requested for: 51Ocd8928; Last Rx:02Vac6375 Ordered 13. Topiramate 50 MG Oral Tablet; ONE PO EVERY HS MDD:1; Therapy: 22Dec2011 to (Evaluate:11Rge5321) Requested for: 23Pyt1230; Last Rx:07Lwb3697 Ordered 14. Toujeo SoloStar 300 UNIT/ML Subcutaneous Solution Pen-injector; Therapy: 27Dec2017 to Recorded 15. traZODone HCl - 100 MG Oral Tablet; Therapy: 14Sep2018 to Recorded 16. Vitamin C TABS; Therapy: (Recorded:50Sis6469) to Recorded 17. ZyrTEC Allergy 10 MG Oral Tablet; Therapy: 04Lkx5029 to Recorded Allergies Iodinated Contrast Media Hives; [...] 1. Renew: HYDROcodone-Acetaminophen 5-325 MG Oral Tablet (Hutchins); one po daily prn pain MDD:1LD 1-2wks ago [facility] Treatment Plan (2): Treatment includes: FOLLOW UP: (She is encouraged to follow through with her upcoming dental appointment) Signatures Electronically signed by : Denise Sharpe NP; Oct 23 2019 4:20PM EST (Author) Electronically signed by : Angel Bauer MD; Oct 24 2019 7:51AM EST Name Value Range Interpretation Code Description Data Melissa rce(s) Supporting Document(s) ID Date Data Source [id number] 09/25/2019 09:02:35 AM EST [facility], PCName: Kristen MchughB: 1970Provider: [...] currently working. 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 The patient is being seen for a [...] Leg pain, diffuse, left (729.5) (M79.605) 8. 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 retirement current use of opiate analgesic (V58.69) (Z79.891) [...] Meds Bydureon 2 MG Subcutaneous Pen- injector;Therapy: 81Lcc9725 to Recorded DULoxetine HCl - 60 MG Oral Capsule Delayed Release Particles; TAKE 1 CAPSULEDAILY. MDD:1;Therapy: 22Dec2011 to (Evaluate:52Tmd2008) Requested for: 06Aug2019; LastRx:06Aug2019 Ordered Fluticasone Propionate 50 MCG/ACT Nasal Suspension;Therapy: 45Wej4069 to Recorded HYDROcodone-Acetaminophen 5-325 MG Oral Tablet; one po daily prn pain MDD:1;Therapy: 52Dmd8623 to (Evaluate:95Dac2731) Requested for: 14Aug2019; LastRx:[id number] OrderedLD 1-2wks ago hydrOXYzine HCl - 25 MG Oral Tablet; Take 3 at bedtime;Therapy: 52Myh3931 to Recorded Levocetirizine Dihydrochloride 5 MG Oral Tablet;Therapy: (Recorded:31Zwj7020) to Recorded metFORMIN HCl - 1000 MG Oral Tablet;Therapy: 02Jan2013 to Recorded Montelukast Sodium 10 MG Oral Tablet;Therapy: 46Zgi1234 to Recorded Multi Vitamin/Minerals TABS;Therapy: (Recorded:77Qgf5969) to Recorded PriLOSEC 40 MG CPDR;Therapy: (Recorded:97Kry0783) to Recorded Simvastatin 20 MG Oral Tablet;Therapy: (Recorded:14Aug2019) to Recorded tiZANidine HCl - 2 MG Oral Tablet; TAKE 1-2 TABLETS AT HS NEEDED FOR SPASMMDD:2;Therapy: 77Mzg6962 to (Evaluate:20Oct2019) Requested for: 83Xqm8766; LastRx:43Qjd9157 Ordered Topiramate 50 MG Oral Tablet; ONE PO EVERY HS MDD:1;Therapy: 22Dec2011 to (Evaluate:20Oct2019) Requested for: 52Ksz2140; LastRx:78Sef0870 Ordered Toujeo SoloStar 300 UNIT/ML Subcutaneous Solution Pen-injector;Therapy: 27Dec2017 to RecordedFormulary Override Reason: No Formulary Equivalent Exists traZODone HCl - 100 MG Oral Tablet;Therapy: 59Fok8267 to Recorded Vitamin C TABS;Therapy: (Recorded:15Tmg6619) to Recorded ZyrTEC Allergy 10 MG Oral Tablet;Therapy: 30Wzh4414 to Recorded Past Medical History Denied: History [...] History Current non-drinker of alcohol (V49.89) (Z78.9) [id number] Denied: History of Drug Use Former smoker (V15.82) (Z87.891) Marital History - Currently Not Currently 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 Renew: HYDROcodone-Acetaminophen 5-325 MG Oral Tablet ([place]); one po daily prn pain MDD:1LD 1-2wks ago 3. Renew: tiZANidine HCl - 2 MG Oral Tablet; TAKE 1- 2 TABLETS AT HS NEEDED FOR SPASM MDD:2 4. Renew: Topiramate 50 MG Oral Tablet; ONE PO EVERY HS MDD:1 5. 30 Day RX Management Follow-up Status: Complete Done: 75Cmy8903). Schedule (FUP) 60 days from today: : 77Mfh4892). Is an additional appointment needed....? : Yes). Schedule 30 day RX from TODAY's date (2 days +/- either way): : 18Oct2019 In my opinion based on subjective and objective findings from today's visit the patient is status quo. Medication:. [place] HYDRAULIC LIFT OPERATOR Information: HYDRAULIC LIFT OPERATOR was consulted by my designee and I [...] agrees to discontinue medication and to contact [facility], friend(s) or family member(s), and/or [facility] if this occurs. The patient is on [...] Weight loss was discussed and encouraged. - COTTON GINNER: The patient was counseled on the following: [...] STREP SCREEN) 09/08/2019 12:00:00 AM EST [facility] Name Value Range Interpretation Code Description Data Melissa rce(s) Supporting Document(s) FULL REPORT IN LAB NOTES (eCW and [facility]). GATS CULTURE (NEG STREP SCR) [facility]) Procedure Social History Code Duration Value Status Description Data Source(s ) Smoking 10/21/2020 12:00:00 AM EST Former Smoker completed Former Smoker [facility] ([facility]) Smoking 10/21/2020 12:00:00 AM EST Former Smoker completed Former Smoker eCW1 ([facility]) Smoking 10/21/2020 12:00:00 AM EST Former Smoker completed Former Smoker eCW1 ([facility]) Smoking 10/19/2020 12:00:00 AM EST Former Smoker completed Former Smoker eCW1 ([facility]) Smoking 10/16/2020 12:00:00 AM EST Former Smoker completed Former Smoker [facility]CW1 ([facility]) Alcohol intake 09/07/2020 12:00:00 AM EST Yes completed [facility] Cigarette pack-years 09/07/2020 12:00:00 AM EST UNK completed [facility] Cigarettes smoked current (pack per day) - Reported 09/07/20 12:00:00 AM EST UNK completed [facility] Smoking 09/07/2020 12:00:00 AM EST Former smoker completed Former smoker [facility] Smoking 08/27/2020 12:00:00 AM EST Former Smoker completed Former Smoker [facility]) Smoking 08/27/2020 12:00:00 AM EST Former Smoker completed Former Smoker eCW1 ([facility]) Smoking 08/27/2020 12:00:00 AM EST Former Smoker completed Former Smoker eCW1 ([facility]) Smoking 08/27/2020 12:00:00 AM EST Former Smoker completed Former Smoker eCW1 ([facility]) Smoking 08/27/2020 12:00:00 AM EST Former Smoker completed Former Smoker eCW1 ([facility]) Smoking 08/27/2020 12:00:00 AM EST Former Smoker completed Former Smoker eCW1 ([facility]) Smoking 08/27/2020 12:00:00 AM EST Former Smoker completed Former Smoker eCW1 ([facility]) Smoking 08/27/2020 12:00:00 AM EST Former Smoker completed Former Smoker eCW1 ([facility]) Smoking 04/22/2020 12:00:00 AM EDT Former Smoker completed Former Smoker eCW1 ([facility]) Smoking 04/22/2020 12:00:00 AM EDT Former Smoker completed Former Smoker eCW1 ([facility]) Smoking 04/22/2020 12:00:00 AM EDT Former Smoker completed Former Smoker eCW1 ([facility]) Smoking 04/22/2020 12:00:00 AM EDT Former Smoker completed Former Smoker eCW1 ([facility]) Smoking 04/22/2020 12:00:00 AM EDT Former Smoker completed Former Smoker eCW1 ([facility]) Smoking 04/22/2020 12:00:00 AM EDT Former Smoker completed Former Smoker eCW1 ([facility]) Smoking 04/22/2020 12:00:00 AM EDT Former Smoker completed Former Smoker eCW1 ([facility]) Smoking 04/22/2020 12:00:00 AM EDT Former Smoker completed Former Smoker eCW1 ([facility]) Smoking 04/21/2020 12:00:00 AM EDT Patient is a former smoker completed Patient is a former smoker [facility] ([facility] ) Smoking 03/27/2020 12:00:00 AM EDT Former Smoker completed Former Smoker [facility]) Smoking 03/27/2020 12:00:00 AM EDT Former Smoker completed Former Smoker eCW1 ([facility]) Smoking 03/11/2020 12:00:00 AM EDT Former Smoker completed Former Smoker eCW1 ([facility]) Smoking 03/11/2020 12:00:00 AM EDT Former Smoker completed Former Smoker eCW1 ([facility]) Vital Signs ID Date Data Source UNK Name Value Range Interpretation Code Description Data Source(s) Body mass index (BMI) [Ratio] 39.8 kg/m2 39.8 k g/m2 [facility] Body height 64 [in_i] 64 [in_i] [facility] 5'4" Body weight 232.00 [lb_av] 232.00 [lb_av] MED[facility] T ([facility]) Body temperature 98.8 [degF] 98.8 [degF] [facility] ([facility]) Oxygen saturation in Arterial blood by Pulse oximetry 98 % 98 % [facility] ([facility] Respiratory rate 14 /min 14 /min [facility] Heart rate 83 /min 83 /min [facility] ([facility]) Diastolic blood pressure 90 mm[Hg] 90 mm[Hg] [facility] ([facility], [facility]) Systolic blood pressure 144 mm[Hg] 144 mm[Hg] M EDENT ([facility], [facility]) Diastolic blood pressure 102 mm[Hg] 102 mm[Hg] eCW1 [facility]) Systolic blood pressure 152 mm[Hg] 152 mm[Hg] e CW1 ([facility]) Body temperature 97.4 [degF] 97.4 [degF] eCW1 ( [facility] Respiratory rate 18 /min 18 /min [facility] Heart rate 85 /min 85 /min eCW1 ([facility]) Body mass index (BMI) [Ratio] 39.99 kg/m2 39.99 kg/m2 W1 ([facility]) Body height 64 [in_i] 64 [in_i] eCW1 ([facility]) Body weight 233 [lb_av] 233 [lb_av] eCW1 ([facility]) Diastolic blood pressure 96 mm[Hg] 96 mm[Hg] eCW1 ([facility]) Systolic blood pressure 148 mm[Hg] 148 mm[Hg] e CW1 ([facility]) Body temperature 96.1 [degF] 96.1 [degF] eCW1 ( [facility]) Heart rate 86 /min 86 /min eCW1 ([facility]) Body mass index (BMI) [Ratio] 40.02 kg/m2 40.02 kg/m2 eCW1 ([facility]) Body height 64 [in_i] 64 [in_i] eCW1 ([facility]) Body weight 233.2 [lb_av] 233.2 [lb_av] eCW1 ([facility]) Oxygen saturation in Arterial blood by Pulse oximetry 95 % 95 % [facility] Body mass index (BMI) [Ratio] 39.99 kg/m2 39.99 kg/m2 [facility] Body weight 105.[address] [facility] Body height 162.[address] [facility] Body temperature 36.11 Allison 36.11 Allison [facility] Heart rate 96 /min 96 /min [facility] Diastolic blood pressure 86 mm[Hg] 86 mm[Hg] [facility] Systolic blood pressure 129 mm[Hg] 129 mm[Hg] [facility] Diastolic blood pressure 83 mm[Hg] 83 mm[Hg] eCW1 ([facility]) Systolic blood pressure 138 mm[Hg] 138 mm[Hg] e CW1 ([facility]) Body temperature 99.0 [degF] 99.0 [degF] eCW1 ( [facility]) Respiratory rate 18 /min 18 /min eCW[facility] Heart rate 89 /min 89 /min eCW1 ([facility]) Body mass index (BMI) [Ratio] 39.82 kg/m2 39.82 kg/m2 W1 ([facility]) Body height 64 [in_i] 64 [in_i] eCW1 ([facility]) Body weight 232 [lb_av] 232 [lb_av] eCW1 ([facility]) Diastolic blood pressure 87 mm[Hg] 87 mm[Hg] eCW1 ([facility]) Systolic blood pressure 130 mm[Hg] 130 mm[Hg] e CW1 ([facility]) Body temperature 97.0 [degF] 97.0 [degF] eCW1 ( [facility]) Respiratory rate 18 /min 18 /min eCW[facility] Heart rate 80 /min 80 /min eCW1 ([facility]) Body mass index (BMI) [Ratio] 41.36 kg/m2 41.36 kg/m2 W1 ([facility]) Body height 64 [in_i] 64 [in_i] eCW1 ([facility]) Body weight 241 [lb_av] 241 [lb_av] eCW1 ([facility]) Body mass index (BMI) [Ratio] 40.2 [...] blood pressure 76 mm[Hg] 76 mm[Hg] eCW1 ([facility]) Systolic blood pressure 123 mm[Hg] 123 mm[Hg] e CW1 ([facility]) Body temperature 98.2 [degF] 98.2 [degF] eCW1 ( [facility]) Respiratory rate 17 /min 17 /min eCW1 [facility] Heart rate 80 /min 80 /min eCW1 ([facility]) Body mass index (BMI) [Ratio] 41.19 kg/m2 41.19 kg/m2 eCW1 ([facility]) Body height 64 [in_i] 64 [in_i] eCW1 ([facility]) Body weight 240 [lb_av] 240 [lb_av] eCW1 ([facility]) Diastolic blood pressure 86 mm[Hg] 86 mm[Hg] eCW1 ([facility]) Systolic blood pressure 131 mm[Hg] 131 mm[Hg] e CW1 ([facility]) Body temperature 98.0 [degF] 98.0 [degF] eCW1 ( [facility]) Respiratory rate 18 /min 18 /min eCW[facility] Heart rate 76 /min 76 /min eCW1 ([facility]) Body mass index (BMI) [Ratio] 41.02 kg/m2 41.02 kg/m2 eCW1 ([facility]) Body height 64 [in_i] 64 [in_i] eCW1 ([facility]) Body weight 239 [lb_av] 239 [lb_av] eCW1 ([facility]) Diastolic blood pressure 105 mm[Hg] 105 mm[Hg] eCW1 ([facility]) Systolic blood pressure 145 mm[Hg] 145 mm[Hg] e CW1 ([facility]) Body temperature 98.6 [degF] 98.6 [degF] eCW1 ( [facility]) Respiratory rate 18 /min 18 /min eCW[facility] Heart rate 92 /min 92 /min eCW1 ([facility]) Body mass index (BMI) [Ratio] 41.02 kg/m2 41.02 kg/m2 eCW1 ([facility]) Body height 64 [in_us] 64 [in_us] eCW1 ([facility]) Body weight Measured 239 [lb_av] 239 [lb_av] eC W1 ([facility]) Diastolic blood pressure 86 mm[Hg] 86 mm[Hg] eCW1 ([facility]) Systolic blood pressure 140 mm[Hg] 140 mm[Hg] e CW1 ([facility]) Body temperature 96.9 [degF] 96.9 [degF] eCW1 ( [facility]) Respiratory rate 18 /min 18 /min eCW[facility] Heart rate 91 /min 91 /min eCW1 ([facility]) Body mass index (BMI) [Ratio] 39.44 kg/m2 39.44 kg/m2 eCW1 ([facility]) Body height 64 [in_us] 64 [in_us] eCW1 ([facility]) Body weight Measured 229.8 [lb_av] 229.8 [lb_av ] eCW1 ([facility]) Diastolic blood pressure 92 mm[Hg] 92 mm[Hg] eCW1 ([facility]) Systolic blood pressure 138 mm[Hg] 138 mm[Hg] e CW1 ([facility]) Body temperature 96.9 [degF] 96.9 [degF] eCW1 ( [facility]) Respiratory rate 18 /min 18 /min eCW[facility] Heart rate 92 /min 92 /min eCW1 ([facility]) Body mass index (BMI) [Ratio] 39.96 kg/m2 39.96 kg/m2 eCW1 ([facility]) Body height 64 [in_us] 64 [in_us] eCW1 ([facility]) Body weight Measured 232.8 [lb_av] 232.8 [lb_av ] eCW1 ([facility]) Diastolic blood pressure 80 mm[Hg] 80 mm[Hg] eCW1 ([facility]) Systolic blood pressure 174 mm[Hg] 174 mm[Hg] e CW1 ([facility]) Body temperature 98.7 [degF] 98.7 [degF] eCW1 ( [facility]) Respiratory rate 18 /min 18 /min eCW[facility] Heart rate 83 /min 83 /min eCW1 ([facility]) Body mass index (BMI) [Ratio] 39.99 kg/m2 39.99 kg/m2 eCW1 ([facility]) Body height 64 [in_us] 64 [in_us] eCW1 ([facility]) Body weight Measured 233 [lb_av] 233 [lb_av] eC W1 ([facility]) Diastolic blood pressure 82 mm[Hg] 82 mm[Hg] eCW1 ([facility]) Systolic blood pressure 137 mm[Hg] 137 mm[Hg] e CW1 ([facility]) Body temperature 97.3 [degF] 97.3 [degF] eCW1 ( [facility]) Respiratory rate 18 /min 18 /min [facility]CW[facility] Heart rate 86 /min 86 /min eCW1 ([facility]) Body mass index (BMI) [Ratio] 39.65 kg/m2 39.65 kg/m2 eCW1 ([facility]) Body height 64 [in_us] 64 [in_us] W1 ([facility]) Body weight Measured 231 [lb_av] 231 [lb_av] eC W1 ([facility]) ID Date Data Source [id number] 10/26/2020 07:17:00 PM EST [facility] Name Value Range Interpretation Code Description Data Source(s) Weight (Calculated Kilograms) 101.60 101.60 [facility] Height (Calculated Centimeters) 162.56 162. 56 [facility] Body Mass Index (BMI) 38.4 38.4 [facility] Patient Treatment Plan of Care Planned Activity Planned Date Details Description Data Source (s) 200 ACTUAT Albuterol 0.09 MG/ACTUAT Metered Dose Inhal er [ProAir] 10/16/2020 12:00:00 AM EST eCW1 ([facility]) 1.5 ML Insulin Glargine 300 UNT/ML Pen Injector [Touje o] 05/31/2020 12:00:00 AM EDT [facility] Losartan Potassium 25 MG Oral Tablet 04/30/2020 12:00:[address] [facility] Hydrocortisone 10 MG/ML / Neomycin 3.5 M G/ML / Polymyxin B 64722 UNT/ML Otic Suspension 04/22/2020 12:00:00 AM EDT eCW1 [facility]) Hydrocortisone 10 MG/ML / Neomycin 3.5 M G/ML / Polymyxin B 08508 UNT/ML Otic Suspension 04/22/2020 12:00:00 AM EDT eCW1 ([facility]) Hydrocortisone 10 MG/ML / Neomycin 3.5 M G/ML / Polymyxin B 43778 UNT/ML Otic Suspension 04/22/2020 12:00:00 AM EDT eCW1 ([facility]) Hydrocortisone 10 MG/ML / Neomycin 3.5 M G/ML / Polymyxin B 34589 UNT/ML Otic Suspension 04/22/2020 12:00:00 AM EDT eCW1 ([facility]) Hydrocortisone 10 MG/ML / Neomycin 3.5 M G/ML / Polymyxin B 34410 UNT/ML Otic Suspension 04/22/2020 12:00:00 AM EDT eCW1 ([facility]) Hydrocortisone 10 MG/ML / Neomycin 3.5 M G/ML / Polymyxin B 21924 UNT/ML Otic Suspension 04/22/2020 12:00:00 AM EDT eCW1 ([facility]) Hydrocortisone 10 MG/ML / Neomycin 3.5 M G/ML / Polymyxin B 68529 UNT/ML Otic Suspension 04/22/2020 12:00:00 AM EDT eCW1 ([facility]) Hydrocortisone 10 MG/ML / Neomycin 3.5 M G/ML / Polymyxin B 64643 UNT/ML Otic Suspension 04/22/2020 12:00:00 AM EDT eCW1 ([facility]) Trazodone Hydrochloride 100 MG Oral Tablet 04/17/2020 12:00:[address] [facility] Prednisone 10 MG Oral Tablet 03/11/2020 12:00:00 AM EDT eCW1 ([facility]) Prednisone 10 MG Oral Tablet 03/11/2020 12:00:00 AM EDT eCW1 ([facility]) Simvastatin 20 MG Oral Tablet 03/06/2020 12:00:[address] [facility] Losartan Potassium 25 MG Oral Tablet 02/11/2020 12:00:00 AM EDT eCW1 ([facility]) Losartan Potassium 25 MG Oral Tablet 02/11/2020 12:00:00 AM EDT eCW1 ([facility]) Losartan Potassium 25 MG Oral Tablet 02/11/2020 12:00:00 AM EDT eCW1 ([facility]) Test Strips - 11/05/2019 12:00:00 AM EST eCW1 ([facility]) Test Strips - 11/05/2019 12:00:00 AM EST eCW1 ([facility]) doxycycline hyclate 100 MG Oral Capsule 10/18/2019 12:00:00 AM EST eCW1 ([facility]) valacyclovir 1000 MG Oral Tablet [Valtrex] 10/18/2019 12:00:[address] [facility]CW[facility]) montelukast 10 MG Oral Tablet 04/08/2019 02:50:53 PM LUCIOT BECKA ([facility])
--- NOTE | 2020-10-29 15:46 | REP ---
INDICATION: Drug Overdose. COMPARISON: 10/16/2020. TECHNIQUE: SINGLE PORTABLE AP VIEW OF THE CHEST WAS PERFORMED. FINDINGS: THERE IS NO ACUTE INFILTRATE OR PULMONARY EDEMA. LUNGS ARE CLEAR. HEART IS NOT SIGNIFICANTLY ENLARGED. MEDIASTINAL SILHOUETTE IS UNREMARKABLE. THE VISUALIZED OSSEOUS STRUCTURES ARE INTACT.Dorsal column stimulator leads are seen in the lower thoracic spine region. A metallic plate and screws are seen in the cervical spine. IMPRESSION: NO ACUTE PULMONARY DISEASE. <Electronically signed by Chaz Glass > 10/29/20 [id number]
[2020-10-29 15:50] LABS: ACETAMINOPHEN LEVEL 2.6 UG/ML (10.0-30.0); ALBUMIN 4.2 GM/DL (3.2-5.2); ALT/SGPT 27 U/L (12-78); BILIRUBIN,DIRECT 0.2 MG/DL (0.0-0.2); BILIRUBIN,TOTAL 0.5 MG/DL (0.2-1.0); BLOOD UREA NITROGEN 10 MG/DL (7-18); CALCIUM LEVEL 9.5 MG/DL (8.5-10.1); CARBON DIOXIDE LEVEL 24 MEQ/L (21-32); CHLORIDE LEVEL 104 MEQ/L (98-107); CK-MB VALUE MASS 1.2 NG/ML (<3.6); CPK CREATINE PHOSPHOKINASE 48 U/L (26-192); CREATININE FOR GFR 0.93 MG/DL (0.55-1.30); ETHYL ALCOHOL (ETHANOL) < 0.003 % (0.000-0.010); GLOMERULAR FILTRATION RATE > 60.0 (>51); GLUCOSE, FASTING 200 MG/DL (70-100); POTASSIUM SERUM 4.4 MEQ/L (3.5-5.1); SALICYLATE LEVEL < 1.7 MG/DL (5.0-30.0); SODIUM LEVEL 138 MEQ/L (136-145); TOTAL PROTEIN 7.2 GM/DL (6.4-8.2); TROPONIN I < 0.02 NG/ML (< 0.10)
[2020-10-29 18:23] LABS: AMPHETAMINES LEVEL URINE NEGATIVE (NEGATIVE); BARBITURATES URINE NEGATIVE (NEGATIVE); BENZODIAZEPINES URINE NEGATIVE (NEGATIVE); CANNABINOIDS URINE NEGATIVE (NEGATIVE); COCAINE METABOLITE URINE NEGATIVE (NEGATIVE); METHADONE URINE NEGATIVE (NEGATIVE); OPIATES URINE POSITIVE (NEGATIVE); PHENCYCLIDINE URINE NEGATIVE (NEGATIVE)
--- NOTE | 2020-10-29 18:32 | ECGEPIP ---
[facility] - ED Test Date: 2020-10-29 Pat Name: JESSI MANCINI Department: Room: - Gender: Female [employer]: priscila : 1970 Requested By: VITA Brown Order Number: [id number] Reading MD: Travon Cerda Measurements Intervals Orient Rate: 86 P: 186 FL: 323 QRS: -19 QRSD: 86 T: 3 QT: 352 QTc: 423 Interpretive Statements Sinus rhythm Significant artifact Nonspecific T wave abnormality Electronically Signed on 10-29-2020 18:31:54 EST by Travon Cerda
[2020-10-29] MEDS ORDERED: HYDR-3713 PO (19:22)
[2020-10-29] MEDS ORDERED: CEFD300CAP PO (19:22)
[2020-10-29] MEDS ORDERED: VENTAER INH (19:22)
[2020-10-29] MEDS ORDERED: CETI-24 PO (19:22)
[2020-10-29] MEDS ORDERED: LEVOTAB10 PO (19:22)
[2020-10-29] MEDS ORDERED: tiZANidine 4 MG TAB PO ONE (22:30)
[2020-10-29] MEDS ORDERED: traZODone 50 MG TAB PO ONE (22:30)
[2020-10-29] MEDS ORDERED: TOPIRAMATE (TopAMAX) 25 MG TAB PO ONE (22:30)
[2020-10-29] MEDS ORDERED: SIMVASTATIN 20 MG TAB PO ONE (22:30)
[2020-10-29] MEDS ORDERED: DULoxetine 30 MG CAP (CYMBALTA) PO ONE (22:30)
[2020-10-29 23:32] LABS: RSV AMPLIFICATION NEGATIVE (NEGATIVE)
[2020-10-30] MEDS: NS 1,000 ML IV SCH (04:14)
[2020-10-30 09:41] VITALS: BP 165/96
== END 2020-10-30 09:44 ==
LOC: M ED 14:29
DX: R45.851 Suicidal ideations (principal); E11.9 Type 2 diabetes mellitus without complications; I10 Essential (primary) hypertension; E78.9 Disorder of lipoprotein metabolism, unspecified; F43.10 Post-traumatic stress disorder, unspecified; G90.50 Complex regional pain syndrome I, unspecified; H40.9 Unspecified glaucoma; E66.9 Obesity, unspecified; Z87.891 Personal history of nicotine dependence; Z91.5 Personal history of self-harm
CPT/HCPCS: 36415; 71045; 80048; 80076; 80307; 82550; 82553; 83605; 84443; 84484; 85025; 87631; 93005; 93041; 94760; 96360; 96361; 99285; G0480

== ENCOUNTER → 2021-01-19 | Outpatient (REF) | payer OTHER, MEDICARE ==
[~2021-01-19] MED LIST changes: +CEFD300CAP PO; +CETI-24 PO; +DOXY-350 PO; +DULO1CAP5 PO; +HYDR-3713 PO; +LEVOTAB10 PO; +LOSA25TA14 PO; +PRIL20TA2 PO; +SIMV20TA22 PO; +VALT1TAB PO; +VENTAER INH
== END ==
LOC: M SFHCWAGY 09:57
PROVIDERS: ATTEND Advanced Practice Midwife
DX: Z12.4 Encounter for screening for malignant neoplasm of cervix (principal)

== ENCOUNTER → 2021-01-27 | Outpatient (CLI) | payer OTHER, MEDICARE ==
--- NOTE | 2021-01-27 14:26 | REP ---
INDICATION: Z12.31 SCREENING MAMMO. COMPARISON: Multiple TECHNIQUE: Digital screening mammography was carried out bilaterally in the CC and MLO projections in both 2D and 3D modalities and compared to the prior exams. FINDINGS: The breasts are unchanged in size and shape. In the right breast seen on both CC and MLO projections there are multifocal saúl densities which are asymmetric and some having suspicious calcifications within them. IMPRESSION: ACR category 0 mammogram. Diagnostic digital magnified spot-compression views right breast recommended in both CC and MLO projections and diagnostic ultrasonography if necessary. Suni Capellan 21 % CBE 01/27 RECOMMENDATION: Diagnostic mammography required. <Electronically signed by Sourav Pederson > 01/27/21 [id number]
== END ==
LOC: M WHC 12:44
PROVIDERS: ATTEND Advanced Practice Midwife
DX: Z12.31 Encounter for screening mammogram for malignant neoplasm of breast (principal)

== ENCOUNTER → 2021-02-09 | Outpatient (CLI) | payer OTHER, MEDICARE ==
[~2021-02-09] MED LIST changes: +ARIP1TAB6; +KLON0.5T; +LEVE500T5; +METH-1165 PO; +PRED20TA PO
== END ==
LOC: M WHC 14:04
PROVIDERS: ATTEND Advanced Practice Midwife
DX: Z12.31 Encounter for screening mammogram for malignant neoplasm of breast (principal)

== ENCOUNTER 2021-02-10 15:17 | Emergency (ER) | payer OTHER, MEDICARE ==
[~2021-02-10] VITALS: Ht 162.6 cm; Wt 108.1 kg
[~2021-02-10 15:17] MED LIST changes: -ARIP1TAB6; -KLON0.5T; -LEVE500T5; -METH-1165 PO; -PRED20TA PO
[2021-02-10 15:21] VITALS: BP 147/79
[2021-02-10] MEDS ORDERED: ARIP1TAB6 (15:34)
[2021-02-10] MEDS ORDERED: KLON0.5T (15:34)
[2021-02-10] MEDS ORDERED: LEVE500T5 (15:34)
[2021-02-10] MEDS ORDERED: methocarbamoL 750 MG TAB PO ONE (17:05)
[2021-02-10] MEDS ORDERED: KETOROLAC 60MG 2ML VIAL IM ONE (17:05)
--- NOTE | 2021-02-10 17:39 | REP ---
INDICATION: back pain/numbness right thigh. COMPARISON: 11/07/2017. TECHNIQUE: Five views lumbosacral spine. FINDINGS: There is no compression fracture or malalignment. There is normal lumbar lordosis. There is very mild disc space narrowing at L4-5 and L5-S1 levels with mild sclerosis and spurring at the facet joints at those levels. Posterior elements are intact. Dorsal column stimulator device is noted. IMPRESSION: Mild degenerative changes. No fracture or dislocation. <Electronically signed by Chaz Glass > 02/10/21 [id number]
--- NOTE | 2021-02-10 17:48 | REP ---
INDICATION: pain/numbness COMPARISON: None. TECHNIQUE: Real time compression and duplex Doppler interrogation of the right lower extremity deep venous system is performed. FINDINGS: The right common femoral, superficial femoral and popliteal veins are fully compressible with transducer pressure and demonstrate normal spontaneous and phasic flow, without evidence of deep venous thrombosis. IMPRESSION: No evidence of deep venous thrombosis of the right lower extremity femoral popliteal venous system. <Electronically signed by Chaz Glass > 02/10/21 [id number]
[2021-02-10] MEDS ORDERED: METH-1165 PO (18:20)
[2021-02-10] MEDS ORDERED: PRED20TA PO (18:20)
== END 2021-02-10 18:26 | disposition home or self-care (01) ==
LOC: M ED 15:17
DX: M54.16 Radiculopathy, lumbar region (principal); E11.9 Type 2 diabetes mellitus without complications; I10 Essential (primary) hypertension; F33.9 Major depressive disorder, recurrent, unspecified; F41.9 Anxiety disorder, unspecified; Z88.0 Allergy status to penicillin; Z88.1 Allergy status to other antibiotic agents; Z88.2 Allergy status to sulfonamides; Z88.4 Allergy status to anesthetic agent; Z88.8 Allergy status to other drugs, medicaments and biological substances; Z91.041 Radiographic dye allergy status; Z98.84 Bariatric surgery status; E66.9 Obesity, unspecified; Z79.899 Other long term (current) drug therapy; Z79.4 Long term (current) use of insulin; Z79.890 Hormone replacement therapy
CPT/HCPCS: 72110; 93971; 96372; 99282; J1885

== ENCOUNTER → 2021-02-16 | Outpatient (REF) | payer OTHER, MEDICARE ==
[~2021-02-16] MED LIST changes: +ARIP1TAB6; +KLON0.5T; +LEVE500T5; +METH-1165 PO; +PRED20TA PO
[2021-02-16 15:27] LABS: HEMOGLOBIN A1c 7.5 %
[2021-02-16 15:43] LABS: ALBUMIN 3.7 GM/DL (3.2-5.2); ALT/SGPT 28 U/L (12-78); BILIRUBIN,TOTAL 0.3 MG/DL (0.2-1.0); BLOOD UREA NITROGEN 11 MG/DL (7-18); CALCIUM LEVEL 9.5 MG/DL (8.5-10.1); CARBON DIOXIDE LEVEL 25 MEQ/L (21-32); CHLORIDE LEVEL 107 MEQ/L (98-107); CREATININE FOR GFR 0.75 MG/DL (0.55-1.30); GLOMERULAR FILTRATION RATE > 60.0 (>51); GLUCOSE, FASTING 256 MG/DL (70-100); POTASSIUM SERUM 4.5 MEQ/L (3.5-5.1); SODIUM LEVEL 139 MEQ/L (136-145); TOTAL PROTEIN 6.6 GM/DL (6.4-8.2)
== END ==
LOC: M PLALAB 12:03
PROVIDERS: ATTEND Family Medicine
DX: I10 Essential (primary) hypertension (principal); E11.9 Type 2 diabetes mellitus without complications

== ENCOUNTER → 2021-02-16 | Outpatient (CLI) | payer OTHER, MEDICARE | LOC: M WHC 11:17 | PROVIDERS: ATTEND Advanced Practice Midwife | DX: N63.11 Unspecified lump in the right breast, upper outer quadrant (principal); N63.14 Unspecified lump in the right breast, lower inner quadrant; N63.13 Unspecified lump in the right breast, lower outer quadrant ==

== ENCOUNTER → 2021-03-10 | Outpatient (CLI) | payer OTHER, MEDICARE ==
[~2021-03-10] MED LIST changes: +XALA0.007 OP
[2021-03-10 17:04] VITALS: BP 142/82
--- NOTE | 2021-03-11 10:15 | REP ---
INDICATION: R92.8 ABN R BREAST MAMMO/US GUIDED BX/CK CLIP PLACEMENT. COMPARISON: 01/27/2021. TECHNIQUE: MLO and CC views right breast. FINDINGS: A clip is seen in the upper right breast. IMPRESSION: A clip is seen in the upper right breast. RECOMMENDATION: None. <Electronically signed by Chaz Glass > 03/11/21 1011
--- NOTE | 2021-03-13 21:06 | ROOPDOC ---
[facility] Report Of Operation Report of Operation DATE OF PROCEDURE: 03/10/2021 DIAGNOSIS: right suspicious lesion at 10:00, and suspicious right upper breast density PROCEDURE: ultrasound guided aspiration of the right breast 10:00 lesion and ultrasound guided biopsy of the right breast suspicious upper breast density with clip placement SURGEON: Fabienne Molina BLOOD LOSS: minimal COMPLICATIONS: none Lidocaine 1% LOT [id number] Expiration 04/2024 Sodium Bicarbonate 8.4% LOT [id number] Expiration 11/2021 Hydromark clip LOT [id number] Expiration 03/2023 SHAPE: 3 Bx device: BARD [id number] x10 cm LOT [id number] Expiration 10/2021 Informed consent was obtained. The most common risk and possible complications including bleeding, hematoma, bruising, infection, injury to surrounding structures were explained to the patient and the patient expressed understanding. Patient was placed on the bed in the supine position. Appropriate time out was done stating patients name, date of , and the procedure to be performed. The right breast was prepped and draped in the usual fashion. The ultrasound was used to confirm the location of the lesion in the right breast at 10:00 9 centimeters from the nipple. Palpation was used to find the suspicious density in the upper right breast. Ultrasound was used to assure safe biopsy and prevent lung injury. Procedure was started with right breast 10:00 9 CFN lesion assessment. Plain Lidocaine 1% and 8.4% sodium bicarbonate 10:1 mix was used to anesthetize the skin, and tissues along the anticipated aspiration tract. 18 G needle was used to aspirate cyst under direct ultrasound guidance. Aspirated fluid was serosanguinous and was sent for cytology. 1 cc of fluid was aspirated. The cyst completely collapsed and images were captured. Manual pressure over the cyst aspiration site and tract was held. No bleeding was noted upon removal of the pressure. Next, our attention was turned toward the right upper breast suspicious density. There was no sonographic correlate and palpation guided sampling was pursued. Plain Lidocaine 1% and 8.4% sodium bicarbonate 10:1 mix was used to anesthetize the skin, the biopsy site and tissues along the anticipated biopsy tract. Small skin incision was made with blade number 11. BARD Marquee 14G cannula with introducer ([id number]) was inserted through the incision and advanced under the ultrasound guidance. Next, the introducer was removed and BARD Marquee 14G biopsy device was places in the cannula. Pre-biopsy imaging, and post-biopsy imaging were captured. Five good core biopsies were taken at various levels of the tissue. Specimen was placed in formaldehyde, labeled with appropriate biopsy site and patients name, and sent to pathology for evaluation. Next, the biopsy device was withdrawn and a clip introducer was inserted into the biopsy site via the cannula. SHAPE 3Hydromark clip was deployed under sonographic guidance. Post-clip placement image was captured. Manual pressure over the biopsy cavity and tract was held after the clip introducer was withdrawn. No bleeding was noted upon removal of the pressure. Post-biopsy mammogram of the right breast was obtained and showed clip in expected position. Postprocedural dressing was placed. Patient tolerated procedure well. Discharge instructions were discussed with the patient and the patient expressed understanding. FABIENNE MOLINA DO Mar 13, 2021 21:06
== END ==
LOC: M WHCPRO 07:26
PROVIDERS: ATTEND Surgery
DX: R92.8 Other abnormal and inconclusive findings on diagnostic imaging of breast (principal)

== ENCOUNTER → 2021-03-23 | Outpatient (CLI) | payer OTHER, MEDICARE ==
[~2021-03-23] MED LIST changes: +OMEP40CA4 PO; -OMEP40CA97 PO
[2021-03-23 16:32] VITALS: BP 134/84
--- NOTE | 2021-03-23 17:00 | REP ---
INDICATION: R92.8 ABN MAMMO RT BREAST,POST STEROTACTIC BIOPSY X3. COMPARISON: 01/27/2021. TECHNIQUE: ML and CC views right breast performed with tomosynthesis. FINDINGS: Following stereotactic biopsy of the 3 suspicious sites in the right breast, a biopsy marking clip is seen at each site indicating successful biopsy at each of the 3 sites. The medial nodule demonstrates an internal biopsy marking clip. The site posterolaterally demonstrates an internal marking clip. The more anterolateral site demonstrates a marking clip which has been displaced slightly anteriorly by a hematoma. IMPRESSION: Successful stereotactic biopsy of 3 suspicious sites in the right breast. RECOMMENDATION: None. <Electronically signed by Chaz Glass > 03/23/21 0651
--- NOTE | 2021-03-23 18:55 | REP ---
INDICATION: R92.8 ABN MAMMO RT BREAST, STEROTACTIC BIOPSY X3. COMPARISON: Mammogram 01/27/2021. TECHNIQUE: Two sets of specimen radiographs are performed. FINDINGS: The 1st set on page 1 shows multiple calcifications from the lateral breast, more posterior biopsy site. The 2nd set on pages 2 and 3 show multiple calcifications from the lateral biopsy site more anteriorly. IMPRESSION: Successful stereotactic biopsy of the 2 lateral locations in the right breast. Multiple calcifications are obtained from each site. RECOMMENDATION: None. <Electronically signed by Chaz Glass > 03/23/21 [id number]
--- NOTE | 2021-03-23 18:55 | REP ---
INDICATION: R92.8 ABN MAMMO RT BREAST, STEROTACTIC BIOPSY X3. COMPARISON: None. TECHNIQUE: This procedure is performed by Jeri Lockhart [facility], under the direct supervision of Dr. Glass. The risks and benefits of the procedure were explained to the patient and informed consent was obtained both verbally and written. Directly prior to the start of the procedure, a formal timeout was done in the procedure room. The superior to inferior cranial caudal approach was utilized on the prone table for all 3 right breast biopsies. The a posterolateral grouping of microcalcifications was localized using mammographic guidance. The skin was prepped and draped in a sterile fashion. Three ml of buffered lidocaine was used as a local anesthetic. A 10 gauge mammotome vacuum assisted biopsy device was inserted and advanced into the breast lesion and 6 core biopsy samples were obtained. Post biopsy imaging demonstrated microcalcifications within the specimen. A shape 3 marker clip was placed at the biopsy site. The anterolateral grouping of microcalcifications was localized using mammographic guidance. The skin was prepped and draped in a sterile fashion. Two ml of buffered lidocaine was used as a local anesthetic. A 10 gauge mammotome vacuum assisted biopsy device was inserted and advanced into the breast lesion and 8 core biopsy samples were obtained. Post biopsy imaging demonstrated microcalcifications within the specimen. A shape 1 marker clip was placed at the biopsy site. The medial density was localized using mammographic guidance. The skin was prepped and draped in a sterile fashion. Three ml of buffered lidocaine was used as a local anesthetic. A 10 gauge mammotome vacuum assisted biopsy device was inserted and advanced into the breast lesion and 6 core biopsy samples were obtained. A shape 1 marker clip was placed at the biopsy site. FINDINGS: The patient tolerated the procedure well and there were no immediate complications. After the appropriate amount of monitored convalescence the patient was discharged from the department. IMPRESSION: Stereotactic guided right breast biopsy and micro clip placement x3. <Electronically signed by Jeri Lockhart > 03/23/21 1710 <Electronically signed by Chaz Glass > 03/23/21 1115
== END ==
LOC: M WHCPRO 06:49
PROVIDERS: ATTEND Surgery
DX: C50.911 Malignant neoplasm of unspecified site of right female breast (principal); D05.11 Intraductal carcinoma in situ of right breast

== ENCOUNTER → 2021-03-30 | Outpatient (REF) | payer OTHER, MEDICARE ==
[2021-03-30 16:01] LABS: BLOOD UREA NITROGEN 11 MG/DL (7-18); CALCIUM LEVEL 9.1 MG/DL (8.5-10.1); CARBON DIOXIDE LEVEL 27 MEQ/L (21-32); CHLORIDE LEVEL 107 MEQ/L (98-107); CREATININE FOR GFR 0.72 MG/DL (0.55-1.30); GLOMERULAR FILTRATION RATE > 60.0 (>51); GLUCOSE, FASTING 140 MG/DL (70-100); POTASSIUM SERUM 4.5 MEQ/L (3.5-5.1); SODIUM LEVEL 139 MEQ/L (136-145)
== END ==
LOC: M PLALAB 12:30
PROVIDERS: ATTEND Surgery
DX: C50.911 Malignant neoplasm of unspecified site of right female breast (principal)

== ENCOUNTER → 2021-04-22 | Outpatient (CLI) | payer OTHER, MEDICARE ==
[~2021-04-22] MED LIST changes: -ARIP1TAB6; +ARIP1TAB6 PO; +DECA4TAB PO; +PROC5TAB57 PO; +ZOFR4TAB16 PO
--- NOTE | 2021-04-26 09:15 | ECHO ---
ECHOCARDIOGRAM DATE OF PROCEDURE: 04/22/2021 Age: 52 Gender: F Height: 163 cm Weight: 108 kg REFERRING PHYSICIAN: Dr. Mikel Martinez PATIENT LOCATION: Outpatient REASON FOR THE TESTING: Chemotherapy drug monitoring MEASUREMENTS: 2D MEASUREMENTS: IVS 0.9 cm LV 3.9 cm LVPW 0.9 cm LA 2.4 cm Aorta 3.3 cm DOPPLER MEASURMENTS: Peak velocity across the aortic valve 0.7 m/s Mitral E 0.5, mitral A 0.6 with a ratio of 0.9 COMMENTS: 1. Normal left ventricular size, wall thickness, and normal global left ventricular systolic function. The estimated left ventricular systolic ejection fraction is 60-65%. 2. Normal left atrium. Normal right atrium and right ventricle. 3. The atrial septum appeared to be normal without evidence of defect or shunt. 4. Normal aortic root. 5. No pericardial effusion seen. 6. The aortic valve, mitral valve, and tricuspid valve appeared to be normal. The pulmonic valve and proximal pulmonary artery branches were not well visualized. 7. The inferior vena cava was not visualized. DOPPLER: No significant valvular abnormalities detected. Abnormal relaxation pattern was noted across the mitral valve leaflets as well as the mitral valve annulus consistent with features of grade 1 left ventricular diastolic dysfunction. IMPRESSION: 1. Normal global left ventricular systolic function. There are some features of grade 1 left ventricular diastolic dysfunction manifested by abnormal relaxation. 2. No significant valvular abnormalities detected. 3. This study was relatively limited due to poor acoustic window secondary to body habitus.
== END ==
LOC: M CARPUL 09:07
PROVIDERS: ATTEND Internal Medicine Hematology & Oncology
DX: C50.411 Malignant neoplasm of upper-outer quadrant of right female breast (principal)

== ENCOUNTER → 2021-04-26 | Outpatient (CLI) | payer OTHER, MEDICARE ==
[~2021-04-26] MED LIST changes: +ACETAMINOPHEN 325 MG TAB As Ordered ONE; +LIDOCAINE 1% MDV 20ML VIAL As Ordered ONE; +MIDAZOLAM INJ 2MG/2ML VIAL (J2250 PER 1MG) As Ordered ONE; +NS 1,000 ML IV SCH; +PROMETHAZINE INJ 25 MG/ML VIAL (J2550) As Ordered ONE; +VANCOMYCIN 1000MG/20ML VIAL As Ordered ONE; +VANCOMYCIN HCL 1,000 MG, VIAL MATE ADAPTER 1 EACH in NS 250 ML IV ONE; +diphenhydrAMINE 50MG/ML VIAL (J1200) As Ordered ONE; +fentaNYL 100 MCG/2 ML INJECTION (J3010) As Ordered ONE
--- NOTE | 2021-04-26 13:32 | IRHP ---
[facility] IR Pre-Procedure H & P General Date of Service: Apr 26, 2021 Procedure: Same Day Surgery Interval History and Physical I have seen the patient and reviewed last H & P performed within 30 days. There is no significant interval change. History of Present Illness Chief Complaint The patient is a 50-year-old female admitted with a reason for visit of right- sided breast cancer. PRE-PROCEDURE DIAGNOSIS: Right-sided breast cancer HEART: Normal rate. LUNGS: Normal breathing at rest. ASA Classification ASA Classification: III-Severe systemic dis. Mallampati Score: II NPO: Yes Problems with prior sedation: No Obstructive Sleep Apnea: No Plan moderate sedation Allergies Coded Allergies: Gadolinium-Containing Contrast Medi (Verified Allergy, Severe, anaphylaxis, 03/23/21) Contrast Media (Verified Allergy, Intermediate, hives, 03/23/21) Sulfa (Sulfonamide Antibiotics) (Verified Allergy, Unknown, hives, 03/23/21) amoxicillin (Verified Allergy, Unknown, rash, 03/23/21) propranolol (Verified Allergy, Unknown, hives, 03/23/21) valproic acid (Verified Allergy, Unknown, hives, 03/23/21) Tricyclic Compounds (Verified Adverse Reaction, Unknown, mouth sores, 03/23/21) amitriptyline (Verified Adverse Reaction, Unknown, mouth sores, 03/23/21) gabapentin (Verified Adverse Reaction, Unknown, orbital pain, 03/23/21) lidocaine (Verified Adverse Reaction, Unknown, elevated heart rate, 03/23/21) PATIENT STATES HER REACTION IS ONLY TO THE LIDOCAINE PATCH, NOT THE INJECTABLE LIDOCAINE magnesium (Verified Adverse Reaction, Unknown, mouth sores, 03/23/21) pregabalin (Verified Adverse Reaction, Unknown, orbital pain, 03/23/21) riboflavin (vitamin B2) (Verified Adverse Reaction, Unknown, mouth sores, 03/23/21) zinc (Verified Adverse Reaction, Unknown, mouth sores, 03/23/21) Home Medications Scheduled Cetirizine HCl (Cetirizine HCl), 10 MG PO DAILY, (Reported) Dexamethasone (Decadron), 8 MG PO BID Duloxetine Hcl (Cymbalta), 60 MG PO QHS, (Reported) Duloxetine Hcl (Duloxetine HCl), 30 MG PO QHS, (Reported) Exenatide Microspheres (Bydureon), 2 MG SC QWEEK, (Reported) Hydroxyzine HCl (Hydroxyzine HCl), 50 MG PO QHS, (Reported) Insulin Glargine,Hum.rec.anlog (Touchai Wilsonostar), 38 UNIT SC QHS, (Reported) Latanoprost (Xalatan), 1 DROP OP QPM, (Reported) Levocetirizine Dihydrochloride (Levocetirizine Dihydrochloride), 5 MG PO QHS, (Reported) Losartan Potassium (Losartan Potassium), 50 MG PO DAILY, (Reported) Metformin HCl (Metformin HCl), 1,000 MG PO BID, (Reported) Omeprazole (Omeprazole), 40 MG PO DAILY, (Reported) Simvastatin (Simvastatin), 20 MG PO QHS, (Reported) Tizanidine HCl (Zanaflex), 4 MG PO QHS, (Reported) Topiramate (Topamax), 50 MG PO QHS, (Reported) Trazodone HCl (Trazodone HCl), 100 MG PO QHS, (Reported) Scheduled PRN Ondansetron HCl (Zofran), 1 TAB PO TIDP PRN for NAUSEA Prochlorperazine (Prochlorperazine Maleate), 1 TAB PO TIDP PRN for NAUSEA Miscellaneous Medications Aripiprazole (Aripiprazole), 7.5 TABS PO, (Reported) Clonazepam (Klonopin), (Reported) levETIRAcetam (levETIRAcetam), (Reported) VS, I&O, 24H, Fishbone Vital Signs/I&O Vital Signs Date Time Temp Pulse Resp B/P (MAP) Pulse Ox O2 Delivery O2 Flow Rate FiO2 04/26/21 13:15 98.4 76 16 96 Room Air MANUEL VILLAR MD Apr 26, 2021 13:32
[2021-04-26 16:30] VITALS: BP 147/75
--- NOTE | 2021-04-28 10:55 | IRPON ---
IR Postoperative Note Date Of Procedure: Apr 26, 2021 Time Of Procedure: 16:00 IR Postoperative Note IR Ultrasound and fluoroscopy guided port placement. IR Ultrasound of the neck. IR Moderate sedation. Clinical indication: Right-sided breast cancer. Physician: Dr. Shirley. Procedure: The patient was advised of the benefits, risks, and alternatives of the procedure and informed consent was obtained. A time-out was performed with verification of the patient's name, MRN, site of procedure and type of procedure to be performed. The patient was positioned in the supine position on the angiographic table. The site was prepped and draped in the usual sterile fashion. Moderate sedation was performed by the physician including the presence of an independent trained RN who assisted and monitored the patient's level of consciousness and physiologic status. Following the administration of fentanyl and Versed , the physician spent 45 minutes of continuous face to face time with the patient. Ultrasound of the neck reveals a patent and compressible left internal jugular vein. A aviation electronic warfare operator radiograph reveals no gross abnormality. The neck and anterior chest wall were anesthetized with lidocaine. The left internal jugular vein was accessed using a microintroducer needle under ultrasound guidance, via a lateral approach. An 018 wire was advanced into the superior vena cava, the needle was removed and a microsheath was placed. An Amplatz wire was then passed into the inferior vena cava. An incision at the internal jugular vein access site and anterior chest wall were made using a scalpel. An incision was made at the anterior chest wall. A small pocket was created using a combination of blunt and sharp dissection. A tunneling device was then used to pass the catheter from the pocket to the neck puncture site. An 8- Polish Angio [employer] Smart power port was then positioned in the pocket. The catheter was then measured and cut. The introducer sheath was exchanged for a peel-away sheath. The catheter was passed through the peel-away sheath into the internal jugular vein and the peel-away sheath was removed. The port tip was positioned at the cavoatrial junction. The port was then accessed with a Sutherland needle. The port flushes and aspirates well. The puncture site in the neck was closed. The chest wall incision was then closed with 2-0 Vicryl and 4-0 Monocryl. Glue and Steri- Strips were applied. A sterile dressing was then applied. The patient tolerated the procedure well and was returned to the PRU in stable condition. Estimated blood loss: <5 ml. Complications: None. Conclusion: 1. Successful placement of an 8-Polish Angio dynamics Smart power port via the left internal jugular vein. The port is ready for immediate use. 2. Patient to follow up in IR clinic in 2 weeks. Thank you for this referral. MANUEL SHIRLEY MD Apr 28, 2021 10:55
== END ==
LOC: M IRPRO 12:53
PROVIDERS: ATTEND Radiology Diagnostic Radiology
DX: C50.911 Malignant neoplasm of unspecified site of right female breast (principal); Z79.4 Long term (current) use of insulin; Z79.899 Other long term (current) drug therapy; Z88.1 Allergy status to other antibiotic agents; Z88.2 Allergy status to sulfonamides; Z88.8 Allergy status to other drugs, medicaments and biological substances; Z91.041 Radiographic dye allergy status
CPT/HCPCS: 36561; 99152; 99153; C1769; C1788; C1894; J1200; J1642; J1644; J2250; J3010; J3370

== ENCOUNTER → 2021-05-11 | Outpatient (POV) | payer OTHER, MEDICARE ==
[~2021-05-11] VITALS: Ht 162.6 cm; Wt 105.4 kg
[~2021-05-11] MED LIST changes: -ACETAMINOPHEN 325 MG TAB As Ordered ONE; +BYDU2INJ7 SC; -LIDOCAINE 1% MDV 20ML VIAL As Ordered ONE; -MIDAZOLAM INJ 2MG/2ML VIAL (J2250 PER 1MG) As Ordered ONE; -NS 1,000 ML IV SCH; -PROMETHAZINE INJ 25 MG/ML VIAL (J2550) As Ordered ONE; -VANCOMYCIN 1000MG/20ML VIAL As Ordered ONE; -VANCOMYCIN HCL 1,000 MG, VIAL MATE ADAPTER 1 EACH in NS 250 ML IV ONE; -diphenhydrAMINE 50MG/ML VIAL (J1200) As Ordered ONE; -fentaNYL 100 MCG/2 ML INJECTION (J3010) As Ordered ONE
[2021-05-11 09:15] VITALS: BP 138/87
--- NOTE | 2021-05-12 10:20 | IRPN ---
[facility] IR Progress Note IR Progress Note DATE: May 11, 2021 FOLLOW-UP: Patient is status post port placement. Patient states she is doing well. No pain, fevers or discharge at site. Port was used without any issues. ON EXAMINATION: Port site appears to be healed. No glue or Steri-Strips remain. No redness, swelling or discharge. IMPRESSION: Doing well status post port placement. No further follow-up scheduled unless initiated by patient and/or referring provider. Thank you for this referral Allergies Coded Allergies: Gadolinium-Containing Contrast Medi (Verified Allergy, Severe, anaphylaxis, 03/23/21) Contrast Media (Verified Allergy, Intermediate, hives, 03/23/21) Sulfa (Sulfonamide Antibiotics) (Verified Allergy, Unknown, hives, 03/23/21) amoxicillin (Verified Allergy, Unknown, rash, 03/23/21) propranolol (Verified Allergy, Unknown, hives, 03/23/21) valproic acid (Verified Allergy, Unknown, hives, 03/23/21) Tricyclic Compounds (Verified Adverse Reaction, Unknown, mouth sores, 03/23/21) amitriptyline (Verified Adverse Reaction, Unknown, mouth sores, 03/23/21) gabapentin (Verified Adverse Reaction, Unknown, orbital pain, 03/23/21) lidocaine (Verified Adverse Reaction, Unknown, elevated heart rate, 03/23/21) PATIENT STATES HER REACTION IS ONLY TO THE LIDOCAINE PATCH, NOT THE INJECTABLE LIDOCAINE magnesium (Verified Adverse Reaction, Unknown, mouth sores, 03/23/21) pregabalin (Verified Adverse Reaction, Unknown, orbital pain, 03/23/21) riboflavin (vitamin B2) (Verified Adverse Reaction, Unknown, mouth sores, 03/23/21) zinc (Verified Adverse Reaction, Unknown, mouth sores, 03/23/21) VS,Fishbone, I+O VS, Fishbone, I+O Vital Signs Date Time Temp Pulse Resp B/P (MAP) Pulse Ox O2 Delivery O2 Flow Rate FiO2 05/11/21 09:15 97.2 90 20 138/87 (104) 99 Room Air MANUEL VILLAR MD May 12, 2021 10:20
== END ==
LOC: M IRPOV 09:09
PROVIDERS: ATTEND Radiology Diagnostic Radiology
DX: Z45.2 Encounter for adjustment and management of vascular access device (principal); Z88.1 Allergy status to other antibiotic agents; Z88.2 Allergy status to sulfonamides; Z88.4 Allergy status to anesthetic agent; Z88.8 Allergy status to other drugs, medicaments and biological substances; Z91.041 Radiographic dye allergy status; Z91.09 Other allergy status, other than to drugs and biological substances

== ENCOUNTER → 2021-05-17 | Outpatient (CLI) | payer OTHER, MEDICARE ==
[2021-05-17 15:44] LABS: BASO % 0.7 % (0.0-1.0); EOS # 0.2 10^3/uL (0.0-0.5); HEMATOCRIT 40.4 % (36.0-47.0); HEMOGLOBIN 13.2 g/dl (12.0-15.5); LYMPH % 35.3 % (24.0-44.0); MEAN CORPUSCULAR HEMOGLOBIN 28.7 pg (27.0-33.0); MEAN CORPUSCULAR HGB CONC 32.7 g/dl (32.0-36.5); MEAN CORPUSCULAR VOLUME 87.8 fl (80.0-96.0); MONO # 0.2 10^3/uL (0.0-0.8); NEUTROPHILS # 3.2 10^3/uL (1.5-8.5); NEUTROPHILS % 57.6 % (36.0-66.0); PLATELET COUNT, AUTOMATED 290 10^3/uL (150-450); WHITE BLOOD COUNT 5.6 10^3/uL (4.0-10.0)
[2021-05-17 15:49] LABS: ALBUMIN 3.6 GM/DL (3.2-5.2); ALT/SGPT 23 U/L (12-78); BILIRUBIN,TOTAL 0.6 MG/DL (0.2-1.0); BLOOD UREA NITROGEN 11 MG/DL (7-18); CARBON DIOXIDE LEVEL 28 MEQ/L (21-32); CHLORIDE LEVEL 108 MEQ/L (98-107); CREATININE FOR GFR 0.64 MG/DL (0.55-1.30); GLOMERULAR FILTRATION RATE > 60.0 (>51); GLUCOSE, FASTING 120 MG/DL (70-100); POTASSIUM SERUM 5.1 MEQ/L (3.5-5.1); SODIUM LEVEL 140 MEQ/L (136-145); TOTAL PROTEIN 6.3 GM/DL (6.4-8.2)
== END ==
LOC: M PLALAB 13:02
PROVIDERS: ATTEND Internal Medicine Medical Oncology
DX: F31.30 Bipolar disorder, current episode depressed, mild or moderate severity, unspecified (principal); F43.10 Post-traumatic stress disorder, unspecified

== ENCOUNTER → 2021-06-04 | Outpatient (REF) | payer OTHER, MEDICARE ==
[~2021-06-04] MED LIST changes: +VIT1CAPS11 PO
== END ==
LOC: M SFHCLERA 18:58
PROVIDERS: ATTEND Nurse Practitioner Family
DX: R05 Cough (principal)

== ENCOUNTER → 2021-07-23 | Outpatient (CLI) | payer OTHER, MEDICARE ==
[~2021-07-23] MED LIST changes: +ALKACAP5 PO; +DOXY-259 PO; -KLON0.5T; +KLON0.5T PO; -LEVE500T5; +LEVE500T5 PO
--- NOTE | 2021-07-24 12:10 | ECHO ---
ECHOCARDIOGRAM DATE OF PROCEDURE: 07/23/2021 Age: 50 Gender: Female Height: Weight: REFERRING PROVIDER: PATIENT LOCATION: Outpatient. REASON FOR THE TESTING: Chemotherapy drug monitoring. MEASUREMENTS: 2D Measurements: IVS 0.9 cm LVPW 1.3 cm LV 3.5 cm Aortic root 3.2 cm LA 2.7 cm Doppler Measurements: Peak velocity across the aortic valve 0.97 m/sec Peak velocity across the LVOT 0.62 m/sec Mitral E 0.52 Mitral A 0.86 with a ratio of 0.6 Maximum tricuspid valve velocity 1.8 m/sec 2D COMMENTS: 1. Technically difficult study due to poor acoustic window. 2. Normal left ventricular size and wall thickness with a normal global left ventricular systolic function. The estimated left ventricular systolic ejection fraction is 60-65%. 3. Normal left atrium. The right atrium appeared to be normal. The right ventricle appeared to be minimally enlarged in limited views, but may be artifactual. A sigmoid appearance of the base of ventricular septum was noted, a benign finding. 4. Normal aortic root. 5. Trace to small pericardial effusion noted. No evidence of cardiac tamponade. 6. The aortic valve, mitral valve and tricuspid valve appeared to be normal. The pulmonic valve and proximal pulmonary artery branches were not well visualized. 7. The inferior vena cava was not visualized. DOPPLER: Only trace mitral regurgitation and trace tricuspid regurgitation detected. The calculated pulmonary artery systolic pressure appeared to be normal. Abnormal relaxation pattern was noted across the mitral valve leaflets as well as the mitral valve annulus consistent with features of grade 1 left ventricular diastolic dysfunction. IMPRESSION: 1. Normal global left ventricular systolic function. There are some features of grade 1 left ventricular diastolic dysfunction manifested by abnormal relaxation pattern. 2. Trace mitral regurgitation. 3. Trace tricuspid regurgitation with a normal calculated pulmonary systolic artery pressure. 4. Trace to small pericardial effusion. No evidence of cardiac tamponade. 5. A sigmoid appearance of the base of ventricular septum was noted, a benign finding.
== END ==
LOC: M CARPUL 11:13
PROVIDERS: ATTEND Internal Medicine Medical Oncology
DX: C50.411 Malignant neoplasm of upper-outer quadrant of right female breast (principal)

== ENCOUNTER → 2021-08-23 | Outpatient (CLI) | payer OTHER, MEDICARE ==
[~2021-08-23] MED LIST changes: -CYMB60CA3 PO; +CYMB60CA4 PO; -TERB250T12 PO; +TERB250T91 PO
[2021-08-23 13:43] LABS: HEMOGLOBIN A1c 7.1 %
== END ==
LOC: M WUC 10:12
PROVIDERS: ATTEND Student in an Organized Health Care Education/Training Program
DX: E11.9 Type 2 diabetes mellitus without complications (principal)

== ENCOUNTER → 2021-08-26 | Outpatient (CLI) | payer OTHER, MEDICARE ==
[~2021-08-26] MED LIST changes: +CALC600T60 PO; +D31000TA2 PO; +VITA-243 PO; -XALA0.007 OP; +XALA0.007 OU
== END ==
LOC: M LABSMTC 11:16
PROVIDERS: ATTEND Anesthesiology
DX: Z01.818 Encounter for other preprocedural examination (principal); Z11.52 Encounter for screening for COVID-19

== ENCOUNTER → 2021-08-26 | Outpatient (CLI) | payer OTHER, MEDICARE ==
--- NOTE | 2021-08-26 12:24 | REP ---
INDICATION: ENCOUNTER FOR OTHER PREPROCEDURAL EXAMINATION. COMPARISON: Multiple the latest 10/16/2020 TECHNIQUE: PA and lateral views FINDINGS: Since the last exam a MediPort device has been placed. The tip is in the superior vena cava. The tip of the dorsal column stimulator is unchanged. There is no change in the lung mills. No acute patchy parenchymal opacities or pleural effusions have developed. The pleural angles are sharp. There is no change in the osseous structures. IMPRESSION: There is no acute cardiopulmonary disease. <Electronically signed by Sourav Pederson > 08/26/21 [id number]
[2021-08-26 12:50] LABS: BASO # 0.1 10^3/uL (0.0-0.2); BASO % 1.2 % (0.0-1.0); EOS # 0.3 10^3/uL (0.0-0.5); EOS % 2.5 % (0.0-3.0); HEMATOCRIT 41.6 % (36.0-47.0); HEMOGLOBIN 13.4 g/dl (12.0-15.5); LYMPH # 2.5 10^3/uL (1.5-5.0); LYMPH % 24.4 % (24.0-44.0); MEAN CORPUSCULAR HEMOGLOBIN 28.8 pg (27.0-33.0); MEAN CORPUSCULAR HGB CONC 32.2 g/dl (32.0-36.5); MEAN CORPUSCULAR VOLUME 89.3 fl (80.0-96.0); MONO # 0.7 10^3/uL (0.0-0.8); MONO % 6.8 % (2.0-8.0); NEUTROPHILS # 6.5 10^3/uL (1.5-8.5); NEUTROPHILS % 64.4 % (36.0-66.0); PLATELET COUNT, AUTOMATED 346 10^3/uL (150-450); RED BLOOD COUNT 4.66 10^6/uL (4.00-5.40); WHITE BLOOD COUNT 10.1 10^3/uL (4.0-10.0)
[2021-08-26 13:10] LABS: ALBUMIN 3.8 GM/DL (3.2-5.2); ALT/SGPT 25 U/L (12-78); BILIRUBIN,TOTAL 0.4 MG/DL (0.2-1.0); BLOOD UREA NITROGEN 11 MG/DL (7-18); CALCIUM LEVEL 9.7 MG/DL (8.5-10.1); CARBON DIOXIDE LEVEL 26 MEQ/L (21-32); CHLORIDE LEVEL 107 MEQ/L (98-107); CREATININE FOR GFR 0.81 MG/DL (0.55-1.30); GLOMERULAR FILTRATION RATE > 60.0 (>51); GLUCOSE, FASTING 150 MG/DL (70-100); POTASSIUM SERUM 4.2 MEQ/L (3.5-5.1); SODIUM LEVEL 141 MEQ/L (136-145); TOTAL PROTEIN 6.8 GM/DL (6.4-8.2)
--- NOTE | 2021-08-27 09:41 | ECGEPIP ---
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 Left axis deviation Low voltages with slow precordial R wave progression, and persistent S waves V5 a and V6; body habitus versus pulmonary disease. Could not rule out prior septal i injury. Subtle T wave abnormalities. No significant change from 10/29/20 Electronically Signed on 08-27-2021 9:41:38 EST by Bienvenido Wan
== END ==
LOC: M LAB 12:04
PROVIDERS: ATTEND Student in an Organized Health Care Education/Training Program
DX: Z01.818 Encounter for other preprocedural examination (principal); I10 Essential (primary) hypertension; R00.0 Tachycardia, unspecified

== ENCOUNTER 2021-08-31 08:30 | Inpatient (IN) | payer OTHER, MEDICARE ==
[~2021-08-31] VITALS: Ht 162.6 cm; Wt 113.2 kg
[~2021-08-31 08:30] MED LIST changes: +CLINDAMYCIN 900 MG in IV 1 EA IV ONE; +HEPARIN SOD (PORCINE) 5000UNITS/ML 1ML VIAL/SYRINGE SQ ONE; +LIDOCAINE 1% MDV 20ML VIAL SQ PRN; +LR 1,000 ML IV ONE
[2021-08-31] MEDS ORDERED: ROCURONIUM BROMIDE 50 MG/5 ML VIAL As Ordered ONE (12:02)
[2021-08-31] MEDS ORDERED: propofoL 200 MG/20 ML VIAL As Ordered ONE (12:02)
[2021-08-31] MEDS ORDERED: SUCCINYLCHOLINE 100 MG/5 ML SYRINGE (J0330) As Ordered ONE (12:02)
[2021-08-31] MEDS ORDERED: fentaNYL 100 MCG/2 ML INJECTION (J3010) As Ordered ONE ×3 (12:02→17:50)
[2021-08-31] MEDS ORDERED: MIDAZOLAM INJ 2MG/2ML VIAL (J2250 PER 1MG) As Ordered ONE (12:02)
[2021-08-31] MEDS ORDERED: BUPIVACAINE LIPOSOME/PF 1.3% 20ML VIAL (13.3MG/ML)(EXPAREL)(C9290 PER1MG) As Ordered ONE (13:21)
[2021-08-31] MEDS ORDERED: LIDOCAINE 2% 100MG/5ML SDV (FOR ANES.) As Ordered ONE (13:39)
[2021-08-31] MEDS ORDERED: METHYLENE BLUE 0.5% (5MG/ML) 10 ML AMP (PROVAYBLUE) As Ordered ONE (13:49)
[2021-08-31] MEDS ORDERED: dexameTHASONE 4 MG/ML 1ML VIAL (J1100 PER 1MG) As Ordered ONE (13:56)
[2021-08-31] MEDS ORDERED: PHENYLephrine 500MCG 5ML (100MCG/ML) SYRINGE As Ordered ONE ×2 (13:56→14:43)
[2021-08-31] MEDS ORDERED: HYDROmorphone HCL 2 MG/ML 1ML VIAL As Ordered ONE (14:03)
[2021-08-31] MEDS ORDERED: ACETAMINOPHEN 1000MG 100ML IV BTL (OFIRMEV) (J0131 PER 10MG) As Ordered ONE (14:05)
[2021-08-31] MEDS ORDERED: ePHEDrine SULFATE 25 MG/5 ML(5MG/ML) SYRINGE As Ordered ONE (14:39)
[2021-08-31] MEDS ORDERED: PHENYLEPHRINE 10MG/ML 1ML VIAL (J2370 PER 1) As Ordered ONE ×2 (14:52→14:56)
[2021-08-31] MEDS ORDERED: METOCLOPRAMIDE INJ 10MG/2ML VIAL (J2765 PER 1) As Ordered ONE (14:52)
[2021-08-31] MEDS ORDERED: ONDANSETRON 4MG/2ML VIAL As Ordered ONE (14:52)
[2021-08-31] MEDS ORDERED: SUGAMMADEX SODIUM 500 MG/5 ML VIAL (BRIDION) As Ordered ONE (17:22)
--- NOTE | 2021-08-31 18:23 | REP ---
INDICATION: RIGHT BREAST CA. COMPARISON: None. TECHNIQUE/RADIOTRACER AND DOSE: This procedure was performed by ARYA Charles, under the direct supervision of Dr. Glass. Images were reviewed with Dr. Glass prior to dictation. The risks and benefits of the procedure were explained to the patient and informed consent was obtained both orally and written. Directly prior to the start of the procedure, a formal timeout was done in the exam room. Using topical anesthetic and sterile technique 1.014 mCi of filtered Technetium-99m sulfur colloid was injected subdermally in 8 fractionated periareolar injections. FINDINGS: Images obtained 1 hour after injection show a dominant focus of uptake in the right axilla. IMPRESSION: There is a dominant focus of uptake in the right axilla. <Electronically signed by Amy Baez > 08/31/21 1215 <Electronically signed by Chaz Glass > 08/31/21 1822
[2021-08-31] MEDS ORDERED: traMADol 50 MG TAB PO PRN (18:55)
[2021-08-31] MEDS ORDERED: LR 1,000 ML IV SCH ×3 (18:55→20:20)
[2021-08-31] MEDS ORDERED: ACETAMINOPHEN TAB 650MG DOSE (2X325MG) PO PRN (18:55)
[2021-08-31] MEDS ORDERED: ONDANSETRON 4MG/2ML VIAL IV PRN ×2 (18:55→19:10)
[2021-08-31] MEDS ORDERED: PERCOCET 5MG/325MG TAB PO PRN (19:10)
[2021-08-31] MEDS ORDERED: METOCLOPRAMIDE INJ 10MG/2ML VIAL (J2765 PER 1) IV PRN (19:10)
[2021-08-31] MEDS ORDERED: LR 1,000 ML IV ONE (19:20)
[2021-08-31] MEDS ORDERED: clonazePAM 0.5 MG TAB PO PRN (20:15)
[2021-08-31] MEDS ORDERED: CALCIUM CARBONATE 500 MG CHEW U/D PO PRN (20:15)
[2021-08-31 20:23] LABS: BASO # 0.1 10^3/uL (0.0-0.2); BASO % 0.4 % (0.0-1.0); HEMOGLOBIN 11.9 g/dl (12.0-15.5); LYMPH # 1.1 10^3/uL (1.5-5.0); LYMPH % 4.9 % (24.0-44.0); MEAN CORPUSCULAR HEMOGLOBIN 29.2 pg (27.0-33.0); MEAN CORPUSCULAR HGB CONC 31.3 g/dl (32.0-36.5); MEAN CORPUSCULAR VOLUME 93.4 fl (80.0-96.0); MONO # 0.7 10^3/uL (0.0-0.8); MONO % 3.1 % (2.0-8.0); NEUTROPHILS # 20.4 10^3/uL (1.5-8.5); NEUTROPHILS % 91.1 % (36.0-66.0); PLATELET COUNT, AUTOMATED 319 10^3/uL (150-450); RED BLOOD COUNT 4.07 10^6/uL (4.00-5.40); WHITE BLOOD COUNT 22.4 10^3/uL (4.0-10.0)
[2021-08-31] MEDS: fentaNYL 100 MCG/2 ML INJECTION (J3010) IV PRN ×2 (20:29→20:35)
[2021-08-31] MEDS ORDERED: GLUCOSE 4GM CHEW TABLET PO PRN (20:35)
[2021-08-31] MEDS ORDERED: GLUCAGON INJ 1MG VIAL SC PRN (20:35)
[2021-08-31] MEDS ORDERED: DEXTROSE 50% 50 ML SYRINGE IV PRN (20:35)
[2021-08-31] MEDS: METOPROLOL 5 MG/5 ML VIAL IV PRN ×2 (20:38→20:45)
[2021-08-31] MEDS ORDERED: PILL CUTTER 1 EACH XX PRN (20:40)
[2021-08-31 20:51] LABS: BLOOD UREA NITROGEN 8 MG/DL (7-18); CALCIUM LEVEL 8.6 MG/DL (8.5-10.1); CARBON DIOXIDE LEVEL 25 MEQ/L (21-32); CHLORIDE LEVEL 108 MEQ/L (98-107); CREATININE FOR GFR 0.91 MG/DL (0.55-1.30); GLOMERULAR FILTRATION RATE > 60.0 (>51); GLUCOSE, FASTING 227 MG/DL (70-100); POTASSIUM SERUM 4.5 MEQ/L (3.5-5.1); SODIUM LEVEL 141 MEQ/L (136-145)
--- NOTE | 2021-08-31 20:55 | CR.PDOC ---
General Date of Consultation: Aug 31, 2021 Primary Care Physician: YANDEL VILLEGAS MD Attending Physician: JOLANTA ANNE MD Consultation REASON FOR CONSULTATION/CHIEF COMPLAINT: s/p bilateral mastectomy. HISTORY OF PRESENT ILLNESS: Inpatient hospitalist team is being consulted by Dr. Velez for this patient status post bilateral mastectomy. Patient denies any symptoms at this time. Patient reports that she is doing well. Patient denies any chest pain, shortness of breath, abdominal pain, nausea, vomiting, diarrhea, constipation. Patient denies any supra pubic pressure. Patient had a urinary catheter during the procedure with urinary output of 200 ml. Patient has not had urinary output since then. REVIEW OF SYSTEMS: General: Patient denies fevers, chills, night sweat HEENT: Patient denies headaches, rhinorrhea, reports dry mucous membranes at this time. Cardiovascular: Patient denies chest pain, denies lower extremity swelling Respiratory: Patient denies shortness of breath, cough GI: Patient denies abdominal pain, nausea, vomiting, diarrhea, const : Patient denies increased frequency or pain with urination Extremities: Patient denies swelling or pain in extremities Neurological: Patient denies numbness or tingling in legs Skin: Patient denies any new rashes or lesions. Hematologic: Patient denies any easy bruising. Lymphatic: Patient denies any lumps or bumps in neck, axilla, or groi PAST MEDICAL / SURGICAL HISTORY: Reflex sympathetic dystrophy Type 2 diabetes mellitus, insulin-dependent Glaucoma Obesity Hyperlipidemia Hypertension ER positive, MD positive HER-2+ breast cancer Gastric bypass, May 2010 C-spine fusion 2011 CTS release and ulnar nerve transposition, left, 2012 CTS release, right, 2013 Ulnar nerve transposition, right, 2016 Laparoscopic excision of kidney stone, 1990 Tonsillectomy, 1990 Clubfoot repair, 1968 and 1970 Left dorsal compartment release, 1994 Dorsal stimulator, 2016 Right breast biopsy March 11 2021 Right breast biopsy March 23 2021 FAMILY HISTORY: Mother, sister, maternal aunt: Breast cancer BRCA negative Patient reports heart disease, asthma, COPD runs in her family SOCIAL HISTORY: Tobacco use: Former smoker, 20 pack years, quit 2005 Reports occasional alcohol use: Wine, last drink April 2021 Denies illicit drug use Denies marijuana use ALLERGIES: Please see below. HOME MEDICATIONS: Please see below. PHYSICAL EXAMINATION: Vital Signs Date Time Temp Pulse Resp B/P (MAP) Pulse Ox O2 Delivery O2 Flow Rate FiO2 08/31/21 08:49 97.0 109 18 129/71 (90) 97 Room Air 08/31/21 18:38 4.0 GENERAL APPEARANCE: Patient is in no acute distress, she is lying back in her gurney with her head up at approximately 30, alert and oriented x4. HEENT: Normocephalic atraumatic, no rhinorrhea, mucous membranes dry, EOMI. RESPIRATORY: Clear to auscultation bilaterally, except for coarse vesicular sounds in the bibasilar lung regions. Restricted lung exam due to gauze dressing from bilateral mastectomy that was just done. 3 LUIS EDUARDO drains draining blood after bilateral mastectomy. CARDIOVASCULAR: Tachycardia with rate in the 140s, no murmurs rubs or gallops. ABDOMEN: Soft, nontender, nondistended. EXTREMITIES: No clubbing, no edema appreciated, radial and pedal pulses +2. NEUROLOGICAL: Upper and lower extremity strength 5 out of 5, no focal motor deficits appreciated. PSYCHIATRIC: Affect full and open, alert and oriented x4. LABORATORY DATA: Laboratory Tests 08/31/21 19:44 08/31/21 22:00 ASSESSMENT/PLAN: #Status post bilateral mastectomy Continue incentive spirometry Follow-up on BMP for possible electrolyte imbalances Follow-up on CBC with differential in case of leukocytosis or anemia following bilateral mastectomy Continue morphine for pain Continue tramadol for pain Continue acetaminophen for pain Continue fluid resuscitation with lactated Ringer #Tachycardia Patient has a history of tachycardia to lidocaine\ May also be secondary to dehydration EKG showed sinus tachycardia Continue to monitor on telemetry Upgraded to PCU status #Hypertension Continue home losartan #Hyperlipidemia Continue home simvastatin #GERD Continue home omeprazole #Glaucoma Continue home latanoprost #Anxiety Continue home duloxetine Continue home as needed clonazepam #Complex regional pain syndrome Continue Keppra home dose Continue tizanidine home dose Continue Topamax home dose #Diabetes type 2 Patient is on 38 units insulin glargine at home, since patient is in the hospital and just had surgery were starting at 10 units detemir Sliding scale insulin Hypoglycemic protocol in place -check A1c #Class 3 obesity -complicates care VT prophylaxis: Heparin Thank you for consulting us, we will continue to follow along with you. Vital Signs/I&O Vital Signs Date Time Temp Pulse Resp B/P (MAP) Pulse Ox O2 Delivery O2 Flow Rate FiO2 08/31/21 20:15 133 18 160/73 (102) 99 Nasal Cannula 4.0 08/31/21 19:15 97.6 Laboratory Data Labs 24H Laboratory Tests 2 08/31/21 09:26: Bedside Glucose ([facility] Panel) 214H 08/31/21 19:44: CBC/BMP Allergies Coded Allergies: Gadolinium-Containing Contrast Medi (Verified Allergy, Severe, anaphylax is, 08/31/21) Contrast Media (Verified Allergy, Intermediate, hives, 08/31/21) Sulfa (Sulfonamide Antibiotics) (Verified Allergy, Mild, hives, 08/31/21) amoxicillin (Verified Allergy, Mild, rash, 08/31/21) propranolol (Verified Allergy, Mild, hives, 08/31/21) valproic acid (Verified Allergy, Mild, hives, 08/31/21) Tricyclic Compounds (Verified Adverse Reaction, Mild, mouth sores, 08/31/21) amitriptyline (Verified Adverse Reaction, Mild, mouth sores, 08/31/21) gabapentin (Verified Adverse Reaction, Mild, orbital pain, 08/31/21) lidocaine (Verified Adverse Reaction, Mild, elevated heart rate, 08/31/21) PATIENT STATES HER REACTION IS ONLY TO THE LIDOCAINE PATCH, NOT THE INJECTABLE LIDOCAINE magnesium (Verified Adverse Reaction, Mild, mouth sores, 08/31/21) pregabalin (Verified Adverse Reaction, Mild, orbital pain, 08/31/21) zinc (Verified Adverse Reaction, Mild, mouth sores, 08/31/21) Home Medications Scheduled Aripiprazole (Aripiprazole) 5 Mg Tablet, 7.5 MG PO DAILY, (Reported) Ascorbic Acid (Vitamin C) 500 Mg Tablet, 1,000 MG PO DAILY, (Reported) Calcium Carbonate (Calcium) 600 Mg Tablet, 1,200 MG PO DAILY, (Reported) Cetirizine HCl (Cetirizine HCl) 10 Mg Tablet, 10 MG PO DAILY, (Reported) Cholecalciferol (Vitamin D3) (Vitamin D3) 1,000 Unit Tablet, 2,000 UNITS PO DAILY, (Reported) Clonazepam (Klonopin) 0.5 Mg Tablet, 1 TAB PO BIDP, (Reported) Duloxetine Hcl (Cymbalta) 60 Mg Cap, 120 MG PO QHS, (Reported) Exenatide Microspheres (Bydureon Bcise) 2 Mg/0.85 Ml Auto.injct, 1 SYRINGE SC Q7D for 28 Days, #4 (Reported) Hydroxyzine HCl (Hydroxyzine HCl) 25 Mg Tab, 50 MG PO QHS, (Reported) Insulin Glargine,Hum.rec.anlog (Toujeo Solostar) 300 Unit/Ml Inj, 38 UNIT SC QHS, (Reported) Latanoprost (Xalatan) 0.005% 2.5ML Drops, 1 DROP OU QPM for 30 Days, #3 (Reported) Levocetirizine Dihydrochloride (Levocetirizine Dihydrochloride) 5 Mg Tablet, 5 MG PO QHS, (Reported) Losartan Potassium (Losartan Potassium) 25 Mg Tablet, 50 MG PO DAILY, (Reported) Metformin HCl (Metformin HCl) 1,000 Mg Tab, 1,000 MG PO BID, (Reported) Omeprazole (Omeprazole) 40 Mg Cap, 40 MG PO DAILY, (Reported) Simvastatin (Simvastatin) 20 Mg Tablet, 20 MG PO QHS, (Reported) Tizanidine HCl (Zanaflex) 2 Mg Cap, 4 MG PO QHS, (Reported) Topiramate (Topamax) 50 Mg Tab, 50 MG PO QHS, (Reported) Trazodone HCl (Trazodone HCl) 100 Mg Tab, 100 MG PO QHS, (Reported) levETIRAcetam (levETIRAcetam) 500 Mg Tablet, 1 TAB PO BID, (Reported) GME ATTESTATION GME ATTESTATION My faculty preceptor for this patient encounter was physically present during the encounter and was fully available. All aspects of the patient interview, examination, medical decision making process, and medical care plan development were reviewed and approved by the faculty preceptor. The faculty preceptor is aware and concurs with the plan as stated in the body of this note and will attest to such by his/her cosignature. ATTENDING NOTE I examined , reviewed the note and agree with the findings as documented. Paolo Rapp DO Aug 31, 2021 20:55 JOLANTA ANNE MD Sep 01, 2021 03:42
[2021-08-31] MEDS ORDERED: ESMOLOL INJ 100MG/10ML VIAL As Ordered ONE (20:59)
[2021-08-31] MEDS: LATANOPROST 0.005% OPHTH SOLN 2.5 ML OU SCH (21:00)
[2021-08-31] MEDS ORDERED: ESMOLOL INJ 100MG/10ML VIAL IV PRN (21:00)
[2021-08-31] MEDS ORDERED: HumaLOG INSULIN (NovoLOG) PER UNIT SC SCH (21:00)
[2021-08-31] MEDS ORDERED: diphenhydrAMINE 50MG CAP PO PRN (21:45)
[2021-08-31] MEDS ORDERED: CLINDAMYCIN 900 MG in IV 1 EA IV SCH (22:00)
[2021-08-31 22:30] VITALS: BP 113/84
--- OUTSIDE RECORDS SUMMARY | 2021-08-31 22:40 | CCD ---
Author Author [facility] Organization [facility] Address Unknown Phone Unavailable Care Team Providers Care Statistical Engineer Name Role Phone Marcy Velez Unavailable PROBLEMS Type Condition ICD9-CM Code [id number] Code Onset Dates Condition S tatus W/U Status Risk SNOMED Code Notes Problem Allergic rhinitis, unspecified seasonality, unspecifie d trigger J30.9 Active confirmed 17138729 Problem Insomnia, unspecified type G47.00 Active confirmed 864991423 Problem Gastroesophageal reflux disease, esophagitis pre sence not specified K21.9 Active confirmed 316180929 Problem Type 2 diabetes mellitus without complications E11 .9 Active confirmed 884052704 Problem Hypertension, unspecified type I10 Active confir med 54741984 Problem Reflex sympathetic dystrophy G90.50 Active confirme d 099627461 Problem Morbid obesity E66.01 Active confirmed 59072 6002 Problem Perimenopause N95.1 Active confirmed 514815 560794173 Problem Bipolar 1 disorder F31.9 Active confirmed 3 22373808 Problem Abnormal mammogram R92.8 Active confirmed 1 41481225 Problem Lumbosacral spondylosis with radiculopathy M47.27 Active confirmed 269124657 Problem Hematoma of right breast N64.89 Active confirm ed 43028769817431277 Problem Bipolar affective disorder, current episode depressed, current episode severity unspecified F31.30 Active confirmed 694712270 Problem Mixed hyperlipidemia E78.2 Active confirmed 226942434 Problem Malignant neoplasm of overla pping sites of right female breast, unspecified estrogen receptor status C50.811 Active confirmed 539108186 Problem Post-traumatic stress disorder, unspecified F43.10 Active confirmed 25474177 Problem FDC current use of insulin Z79.4 Active conf irmed 695153988 Problem Abnormal mammogram of right breast R92.8 Activ e confirmed 018054068 Problem 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 Active confirmed 1286182150011554 Problem 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 Active confirmed 975728480 Problem Hematoma (nontraumatic) of breast N64.89 Active confirmed 602062550 ALLERGIES Allergen (clinical drug ingredient) Drug/Non Drug Allergy do cumented on EMR Reaction Allergy Type Onset Date Status amitriptyline Amitriptyline HCl([facility] Code:[address]-01) Mouth sores Drug Allergy Active Inderal Hives Drug Allergy Active IV Dye Anaphylaxis Non Drug Allergy Active Amoxicillin Rash Drug Allergy Active Riboflavin Mouth sores Drug Allergy Active MRI Dye Anaphylaxis Non Drug Allergy Active gabapentin Neurontin([facility] Code:[address]-21) Orbital pain, black dots Drug Allergy Active Magnesium([facility] Code:[address]-00) mouth sores Drug Allergy Inactive Sulfasalazine Sulfa Antibiotics Hives Drug Allergy Ac tive pregabalin Lyrica([facility] Code:[address]-09) Orbital pain, black dot s Drug Allergy Active valproate Depakote([facility] Code:[address]-02) REYES Drug Allergy Active Lidocaine & Adhesive Sheet rapid heart rate, ringing in ea r Drug Allergy Active Zinc([facility] Code:13485-47965) Hives Drug Allergy Active ENCOUNTERS from 1968 to 2021-08-23 Encounter Location Date Provider Diagnosis [facility] [phone] [place] [address] Aug, Marcy Velez IMMUNIZATIONS Vaccine Route Administration Date Status Influenza 18 yrs & older Flublok Unknown Jul 02, 2020 Administered Influenza 18 yrs & older Flublok IM Intramuscular Aug 07, 2019 Administered Pneumococcal Adult 0.5mL Pneumovax 23 Unknown Aug 14 17 Administered Influenza 6mo & up Fluzone IM Intramuscular Aug 20, 2018 Admi nistered Influenza 6mo & up Fluzone IM Intramuscular Aug 09, 2017 Admi nistered Influenza 6mo & up Fluzone Unknown Jul 29, 2015 Admin istered Influenza 6mo & up Fluzone Unknown Oct 12, 2014 Refus ed SOCIAL HISTORY Tobacco Use: Social History Observation Description Date Details (start date - stop date) Former Smoker Sex Assigned At : Social History Observation Description Sex Assigned At Unknown Alcohol Screening: Question Answer Notes Did you [...] Notes Start Da te End Date Status Latanoprost 0.005 % INSTILL 1 DROP INTO EACH EYE AT BEDTIME Opht halmic for 75 Active Abilify 15 MG 1/2 tablet Orally Daily Active Toujeo SoloStar 300 UNIT/ML 38 units Subcutaneous Daily for 30 days Active traZODone HCl 100 MG 1-2 tablets at bedtime Orally QHS Active Singulair 10 MG 1 tablet in the evening Orally Once a day for 30 days Active Cymbalta 60 MG 1 capsule Orally Once a day 90mg total Active Lidocaine-Prilocaine 2.5-2.5 % apply entire tube to ri ght nipple 2 h prior to coming to hospital for surgery. Cover with plastic Externally once for 1 day Active Test Strips - as directed intravenously bid for 90 days Oct, Active Topamax 50 MG 1 tablet Orally Once a day Active Omeprazole 40 MG 1 capsule 30 minutes before morning meal orally Daily for 90 days Active Zanaflex 2 MG 1 tablet Orally Once a day Active ZyrTEC Allergy 10 MG 1 tablet Orally Once a day for 30 days Active Zocor 20 MG 1 tab Orally Once a day for 90 days Active Doxycycline Hyclate 100 MG 1 capsule Orally Twice a day for 7 da y(s) May, Not-Taking Doxycycline Monohydrate 100 MG 1 capsule Orally every 12 hrs for 10 day(s) Jun, Active hydrOXYzine Pamoate 25 mg 1 capsule Orally 1 capsule i n the am, 4 at night, 1 cap as needed for 30 Days Active metFORMIN HCl 1000 MG 1 tablet with meals Orally Twice a day for 90 d ays Active Magnesium 300 MG 1 capsule with a meal Orally Once a day Active clonazePAM 0.5 MG (Schedule IV Drug) TAKE 1 TA BLET BY MOUTH TWICE DAILY NEEDED . DO NOT EXCEED 2 PER 24 HOURS Oral for 30 Active BD Pen Needle Original U/F 29G X 12.7MM as directed centeno bcutaneously as directed for 90 day(s) Jan, Active Vitamin D3 50 MCG (1999 UT) 1 capsule Orally Once a day for 30 day(s) Active Bydureon BCise 2 MG/0.85ML as directed Subcutaneous once a week for 30 days May, Active Zofran 4 MG 1 tablet Orally Once a day for 30 day(s) PRN Active Meclizine HCl 25 MG 1 tablet as needed Orally Once a day for 30 day(s) February, Active Compazine 10 MG 1 tablet as needed Orally Three times a day UNSURE OF DOSE Active Losartan Potassium 50 MG 1 tablet Orally Once a day for 90 day(s) Active Flonase 50 MCG/ACT 1 spray in each nostril Nasally Once a day fo r 30 day(s) Aug, Active Xyzal 5 MG 1 tablet in the evening Orally Once a day Active PROCEDURES No Information RESULTS No Results REASON FOR VISIT 08/31/21 SURG AUTH MEDICAL (GENERAL) HISTORY Type Description Date Medical History RSD Medical History Type 2 DM- goal < 7.3 Medical History glaucoma Medical History Abnormal mammogram Medical History obesity Medical History HLD Medical History HTN- goal 140/90 Medical History HER2+ right breast cancer Surgical History Gastric Bypass May 2010 Surgical History c-spine fusion 2011 Surgical History CTS release and ulnar nerve transpositio n left 2012 Surgical History CTS release right 2014 Surgical History ulnar nerve transposition right 2017 Surgical History laparoscopic 1990 Surgical History excision of kidney stone, tonsillectomy 1990 Surgical History club foot repair 1968+1970 Surgical History left dorsal compartment release 1994 Surgical History dorsal stimulator 08/28/2017 Surgical History Right breast bx March 11, 2021 Surgical History R breast bx March 23, 2021 Hospitalization History [facility] 2011 Hospitalization History [facility] 09/18/18 Hospitalization History [facility] [place] [facility] 10/29/20-1/28-21 Goals Section No Information Health Concerns No Information MEDICAL EQUIPMENT No Information MENTAL STATUS No Information FUNCTIONAL STATUS No Information ASSESSMENTS No Information PLAN OF TREATMENT Medication Medication Name Sig Start Date Stop Date Lidocaine-Prilocaine 2.5-2.5 % apply entire tube to ri ght nipple 2 h prior to coming to hospital for surgery. Cover with plastic Externally once for 1 day Next Appt Details Provider Name:Marcy Velez, 29-08-16 01:22:00 PM, [address] [place] [address], , [place], [address], Provider Name:Deidre Pickering, 2021-08-24 02:00:00 PM, [id number] [place] [address] , [place], [address], Provider Name:Marcy Velez, 29-08-23 04:30:00 PM, [address] [place] [address] , [place], [address], Provider Name:Marcy Velez, 28-09-03 11:00:00 AM, [address] [place] [address] , [place], [address], Insurance Providers Payer Name Payer Address Payer Phone Insured Name Patient Relati onship to Insured Coverage Start Date Coverage End Date [facility] [address] [address] [facility] [phone] JESSI MANCINI MEDICARE Part A and B [address] [facility] [address] JESSI MANCINI self
--- OUTSIDE RECORDS SUMMARY | 2021-08-31 22:40 | CCD ---
Author Author [facility] Organization [facility] Address Unknown Phone Unavailable Care Team Providers Care Mortgage Funder Name Role Phone Deidre Pickering Unavailable PROBLEMS Type Condition ICD9-CM Code LIO44-GQ Code Onset Dates Condition S tatus W/U Status Risk SNOMED Code Notes Problem Allergic rhinitis, unspecified seasonality, unspecifie d trigger J30.9 Active confirmed 71679273 Problem Insomnia, unspecified type G47.00 Active confirmed 479661313 Problem Gastroesophageal reflux disease, esophagitis pre sence not specified K21.9 Active confirmed 830214044 Problem Type 2 diabetes mellitus without complications E11 .9 Active confirmed 413369096 Problem Hypertension, unspecified type I10 Active confir med 05658657 Problem Reflex sympathetic dystrophy G90.50 Active confirme d 017981558 Problem Morbid obesity E66.01 Active confirmed 21931 6002 Problem Perimenopause N95.1 Active confirmed 419537 067907552 Problem Bipolar 1 disorder F31.9 Active confirmed 3 32587311 Problem Abnormal mammogram R92.8 Active confirmed 1 51722053 Problem Lumbosacral spondylosis with radiculopathy M47.27 Active confirmed 748959792 Problem Hematoma of right breast N64.89 Active confirm ed 83963115629938804 Problem Bipolar affective disorder, current episode depressed, current episode severity unspecified F31.30 Active confirmed 103283548 Problem Mixed hyperlipidemia E78.2 Active confirmed 156150170 Problem Malignant neoplasm of overla pping sites of right female breast, unspecified estrogen receptor status C50.811 Active confirmed 896854045 Problem Post-traumatic stress disorder, unspecified F43.10 Active confirmed 07858375 Problem 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 Active conf irmed 969409525 Problem Abnormal mammogram of right breast R92.8 Activ e confirmed 501070602 Problem 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 Active confirmed 8631077943275725 Problem 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 Active confirmed 186574493 Problem Hematoma (nontraumatic) of breast N64.89 Active confirmed 608947936 ALLERGIES Allergen (clinical drug ingredient) Drug/Non Drug [...] Anaphylaxis Non Drug Allergy Active gabapentin Neurontin([facility] Code:[address]-63) Orbital pain, black dots Drug Allergy Active Magnesium([facility] Code:[address]-55) mouth sores Drug Allergy Active amitriptyline Amitriptyline HCl([facility] Code:[address]-64) Mouth sores Drug Allergy Active pregabalin Lyrica([facility] Code:[address]-30) Orbital pain, black dot s Drug Allergy Active valproate Depakote([facility] Code:[address]-56) REYES Drug Allergy Active IV Dye Anaphylaxis Drug Allergy Active Zinc([facility] Code:47628-67867) Hives Drug Allergy Active ENCOUNTERS from 1968 to 2021-07-06 Encounter Location Date Provider Diagnosis [address] [phone] [place] [address] Jun, Deidre Pickering IMMUNIZATIONS Vaccine Route Administration Date Status Influenza [...] Unknown Language: Question Answer Notes Languages spoken: Romansh Quaker: Question Answer Notes Quaker 33 None Alcohol Screening: Question Answer Notes Did you [...] Notes Start Da te End Date Status traZODone HCl 100 MG 1-2 tablets at bedtime Orally QHS Active BD Pen Needle Original U/F 29G X 12.7MM as directed centeno bcutaneously as directed for 90 day(s) Jan, Active Abilify 15 MG 1/2 tablet Orally Daily Active Omeprazole 40 MG 1 capsule 30 minutes before morning meal orally Daily for 90 days Active Losartan Potassium 50 MG 1 tablet Orally Once a day for 90 day(s) Active Vitamin D3 50 MCG (1999 UT) 1 capsule Orally Once a day for 30 day(s) Active hydrOXYzine Pamoate 25 mg 1 capsule Orally 1 capsule i n the am, 4 at night, 1 cap as needed for 30 Days Active clonazePAM 0.5 MG (Schedule IV Drug) TAKE 1 TA BLET BY MOUTH TWICE DAILY NEEDED . DO NOT EXCEED 2 PER 24 HOURS Oral for 30 Active Test Strips - as directed intravenously bid for 90 days Oct, Active Topamax 50 MG 1 tablet Orally Once a day Active Bydureon BCise 2 MG/0.85ML as directed Subcutaneous once a week for 30 days May, Active Zofran 4 MG 1 tablet Orally Once a day for 30 day(s) PRN Active Doxycycline Hyclate 100 MG 1 capsule Orally Twice a day for 7 da y(s) May, Not-Taking Cymbalta 60 MG 1 capsule Orally Once a day 90mg total Active Meclizine HCl 25 MG 1 tablet as needed Orally Once a day for 30 day(s) February, Active Latanoprost 0.005 % INSTILL 1 DROP INTO EACH EYE AT BEDTIME Opht halmic for 75 Active Doxycycline Monohydrate 100 MG 1 capsule Orally every 12 hrs for 10 day(s) Jun, Active Zocor 20 MG 1 tab Orally Once a day Active metFORMIN HCl 1000 MG 1 tablet with meals Orally Twice a day Active Toujeo SoloStar 300 UNIT/ML 38 units Subcutaneous Daily for 30 days Active ZyrTEC Allergy 10 MG 1 tablet Orally Once a day for 30 days Active Compazine 10 MG 1 tablet as needed Orally Three times a day UNSURE OF DOSE Active Zanaflex 2 MG 1 tablet Orally Once a day Active Singulair 10 MG 1 tablet in the evening Orally Once a day for 30 days Active Xyzal 5 MG 1 tablet in the evening Orally Once a day Active Flonase 50 MCG/ACT 1 spray in each nostril Nasally Once a day fo r 30 day(s) Aug, Active PROCEDURES No Information RESULTS No Results REASON FOR VISIT sore throat MEDICAL (GENERAL) HISTORY Type Description Date Medical [...] Hospitalization History [facility] 09/18/18 Hospitalization History [facility] [place] 10/29/20- Goals Section No Information Health Concerns No Information MEDICAL EQUIPMENT No Information MENTAL STATUS No Information FUNCTIONAL STATUS No Information ASSESSMENTS No Information PLAN OF TREATMENT Medication Medication Name Sig Start Date Stop Date Doxycycline Monohydrate 100 MG 1 capsule Orally every 12 hrs for 10 day(s) Jun, Next Appt Details Provider Name:Deidre Pickering, 2021-08-24 02:00:00 PM, [address] [facility], , [place], [address], Insurance Providers Payer Name Payer Address Payer Phone Insured Name Patient Relati onship to Insured Coverage Start Date Coverage End Date [facility] [address] [address] [facility] [phone] JESSI CLOUD MEDICARE Part A and B [address] [facility] [phone] JESSI CLOUD self
--- OUTSIDE RECORDS SUMMARY | 2021-08-31 22:40 | CCD ---
Author Author [facility] Organization [facility] Address Unknown Phone Unavailable Care Team Providers Care Quality Compliance Consultant Name Role Phone Jamel Vital Unavailable PROBLEMS Type Condition ICD9-CM Code PAR27-ZJ Code Onset Dates Condition S tatus W/U Status Risk SNOMED Code Notes Problem Allergic rhinitis, unspecified seasonality, unspecifie d trigger J30.9 Active confirmed 05648706 Problem Insomnia, unspecified type G47.00 Active confirmed 996618419 Problem Gastroesophageal reflux disease, esophagitis pre sence not specified K21.9 Active confirmed 801826057 Problem Type 2 diabetes mellitus without complications E11 .9 Active confirmed 584203228 Problem Hypertension, unspecified type I10 Active confir med 83750478 Problem Reflex sympathetic dystrophy G90.50 Active confirme d 344718458 Problem Morbid obesity E66.01 Active confirmed 39183 6002 Problem Perimenopause N95.1 Active confirmed 096397 938473340 Problem Bipolar 1 disorder F31.9 Active confirmed 3 53348143 Problem Abnormal mammogram R92.8 Active confirmed 1 50416969 Problem Lumbosacral spondylosis with radiculopathy M47.27 Active confirmed 138770948 Problem Hematoma of right breast N64.89 Active confirm ed 79722951317549026 Problem Bipolar affective disorder, current episode depressed, current episode severity unspecified F31.30 Active confirmed 032144045 Problem Mixed hyperlipidemia E78.2 Active confirmed 085651294 Problem Malignant neoplasm of overla pping sites of right female breast, unspecified estrogen receptor status C50.811 Active confirmed 469250162 Problem Post-traumatic stress disorder, unspecified F43.10 Active confirmed 26264071 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 Active conf irmed 468490977 Problem Abnormal mammogram of right breast R92.8 Activ e confirmed 738582735 Problem 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 Active confirmed 5732018161627498 Problem 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 Active confirmed 779370923 Problem Hematoma (nontraumatic) of breast N64.89 Active confirmed 140959188 ALLERGIES Allergen (clinical drug ingredient) Drug/Non Drug [...] Dye Anaphylaxis Non Drug Allergy Active gabapentin Neurontin([facility] Code:[address]-88) Orbital pain, black dots Drug Allergy Active Magnesium(ND Code:[address]-73) mouth sores Drug Allergy Active amitriptyline Amitriptyline HCl(ND Code:[address]-91) Mouth sores Drug Allergy Active pregabalin Lyrica(ND Code:[address]-73) Orbital pain, black dot s Drug Allergy Active valproate Depakote([facility] Code:[address]-42) REYES Drug Allergy Active IV Dye Anaphylaxis Drug Allergy Active Zinc(NDC Code:47505-54665) Hives Drug Allergy Active ENCOUNTERS from 1968 to 2021-07-08 Encounter Location Date Provider Diagnosis [address] [phone] [place] [address] Jun, Jamel [place] Cough R05 and Acute bronchitis, unspecif ied organism J20.9 IMMUNIZATIONS Vaccine Route Administration Date Status Influenza 18 yrs & older Flublok IM Intramuscular Aug 07, 2019 Administered Influenza 18 yrs & older Flublok Unknown Jul 02, 2020 Administered Pneumococcal Adult 0.5mL Pneumovax 23 Unknown [...] Unknown Language: Question Answer Notes Languages spoken: Japanese Roman Catholic: Question Answer Notes Roman Catholic 33 None Alcohol Screening: Question Answer Notes [...] FOR REFERRAL No Information VITAL SIGNS Weight 236 lbs Jun, Height 64 in Jun, BMI 40.50 kg/m2 Jun, Heart Rate 94 /min Jun, Respiratory Rate 18 /min Jun, Temperature 98.7 degrees Fahrenheit Jun, Oximetry 96 Jun, Blood pressure systolic 138 mm Hg Jun, Blood pressure diastolic 89 mm Hg Jun, MEDICATIONS Medication SIG (Take, Route, Frequency, Duration) [...] day(s) Aug, Active PROCEDURES No Information RESULTS Component Value Reference Range [facility] (Point of Care) Reviewed date:07/06/2021 16:49:32 Interpretation:Negative Performing Lab:[facility], RALS INTERFACE [address] [facility] [id number] , ,[place] [address] FAVIO COVID ANTIGEN NEGATIVE NEGATIVE REASON FOR VISIT sore throat MEDICAL (GENERAL) [...] Hospitalization History [facility] 09/18/18 Hospitalization History [facility] Ricarda 10/29/20- Goals Section No Information Health Concerns No Information MEDICAL EQUIPMENT No Information MENTAL STATUS No Information FUNCTIONAL STATUS No Information ASSESSMENTS Encounter Date Diagnosis Assessment Notes Treatment Notes Treatm ent Clinical Notes Jun, Cough (ICD-10 - R05) Jun, Acute bronchitis, unspecified organism (ICD-10 - J20.9) You have bronchitis at this time, which is usually caused by a viral infection. Unfortunately, antibiotics do not help with viral infections. They are usually benign and self-limited infections, so treatment is based on symptomatic relief. However, because of your worsening symptoms and lung disease, you are at risk of having a bacterial infection. Rest and drink clear fluids throughout the day. You may use humidification and saline irrigation to help with the congestion. You may also take motrin or tylenol as needed for pain or fever. You may also consider using eedo-bxd-dxaznbd decongestant medication as needed. Viral infections sometimes may last 10-14 days before resolving completely. Use albuterol as needed to help with breathing and inflammation in the lungs. Jun, Other Medication/s di scussed with patient and questions answered. RTC as needed for worsening or unresolved symptoms. Patient states understanding and agreement with this plan. PLAN OF TREATMENT Medication Medication Name Sig Start Date Stop Date Doxycycline Monohydrate 100 MG 1 capsule Orally every 12 hrs for 10 day(s) Jun, Treatment Notes Assessment Notes Clinical Notes Acute bronchitis, unspecified organism You have bronch itis at this time, which is usually caused by a viral infection. Unfortunately, antibiotics do not help with viral infections. They are usually benign and self-limited infections, so t reatment is based on symptomatic relief. However, because of your worsening symptoms and lung disease, you are at risk of having a bacterial infection. Rest and drink clear fluids throughout the day. You may use humidification and saline irrigation to help with the congestion. You may also take motrin or tylenol as needed for pain or fever. You may also consider using wole-jae-cqkaywy decongestant medication as needed. Viral infections sometimes may last 10-14 days before resolving completely. Use albuterol as needed to help with breathing and inflammation in the lungs. Next Appt Details 2 - 3 Days unless improving Reason: Provider Name:Deidre Pickering, 2021-08-24 02:00:00 PM, [address] [facility], , [place], [address], Insurance Providers Payer Name Payer Address Payer Phone Insured Name Patient Relati onship to Insured Coverage Start Date Coverage End Date [facility] [address] [address] [facility] [phone] JESSI CLOUD MEDICARE Part A and B [address] [facility] [phone] JESSI CLOUD self
--- OUTSIDE RECORDS SUMMARY | 2021-08-31 22:40 | CCD ---
Author Author [facility] Organization [facility] Address Unknown Phone Unavailable Care Team Providers Care Director Medical Economics Name Role Phone Deidre Pickering Unavailable PROBLEMS Type Condition ICD9-CM Code [id number] Code Onset Dates Condition S tatus W/U Status Risk SNOMED Code Notes Problem Allergic rhinitis, unspecified seasonality, unspecifie d trigger J30.9 Active confirmed 73209115 Problem Insomnia, unspecified type G47.00 Active confirmed 085443375 Problem Gastroesophageal reflux disease, esophagitis pre sence not specified K21.9 Active confirmed 544466734 Problem Type 2 diabetes mellitus without complications E11 .9 Active confirmed 356644787 Problem Hypertension, unspecified type I10 Active confir med 41893726 Problem Reflex sympathetic dystrophy G90.50 Active confirme d 338434121 Problem Morbid obesity E66.01 Active confirmed 63509 6002 Problem Perimenopause N95.1 Active confirmed 841432 894029275 Problem Bipolar 1 disorder F31.9 Active confirmed 3 09185082 Problem Abnormal mammogram R92.8 Active confirmed 1 45465182 Problem Lumbosacral spondylosis with radiculopathy M47.27 Active confirmed 686184265 Problem Hematoma of right breast N64.89 Active confirm ed 28651928593426042 Problem Bipolar affective disorder, current episode depressed, current episode severity unspecified F31.30 Active confirmed 714487838 Problem Mixed hyperlipidemia E78.2 Active confirmed 535579535 Problem Malignant neoplasm of overla pping sites of right female breast, unspecified estrogen receptor status C50.811 Active confirmed 095242383 Problem Post-traumatic stress disorder, unspecified F43.10 Active confirmed 02863899 Problem 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 Active conf irmed 118791569 Problem Abnormal mammogram of right breast R92.8 Activ e confirmed 942416400 Problem 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 Active confirmed 7434086501624333 Problem 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 Active confirmed 977028747 Problem Hematoma (nontraumatic) of breast N64.89 Active confirmed 529537860 ALLERGIES Allergen (clinical drug ingredient) Drug/Non Drug Allergy do cumented on EMR Reaction Allergy Type Onset Date Status Lidocaine & Adhesive Sheet rapid heart rate, ringing in ea r Drug Allergy Active Magnesium(ND Code:[address]-99) mouth sores Drug Allergy Inactive Inderal Hives Drug Allergy Active Amoxicillin Rash Drug Allergy Active pregabalin Lyrica(ND Code:[address]-07) Orbital pain, black dot s Drug Allergy Active Riboflavin Mouth sores Drug Allergy Active MRI Dye Anaphylaxis Non Drug Allergy Active gabapentin Neurontin(ND Code:[address]-74) Orbital pain, black dots Drug Allergy Active amitriptyline Amitriptyline HCl(ND Code:[address]-74) Mouth sores Drug Allergy Active Sulfasalazine Sulfa Antibiotics Hives Drug Allergy Ac tive valproate Depakote([facility] Code:[address]-54) REYES Drug Allergy Active IV Dye Anaphylaxis Drug Allergy Active Zinc(ND Code:06714-83822) Hives Drug Allergy Active ENCOUNTERS from 1968 to 2021-08-25 Encounter Location Date Provider Diagnosis [facility] [id number] [place] [address] [place] [address] Aug, Deidre Pickering Pre-op evaluation Z01.818 an d Hypertension, unspecified type I10 IMMUNIZATIONS Vaccine Route [...] History Observation Description Sex Assigned At Unknown Education: Question Answer Notes Level of Education: College Audit Question Answer Notes Total Score: 1 Interpretation: Alcohol Education Language: Question Answer Notes Languages spoken: Albanian Gnosticism: Question Answer Notes Gnosticism 13 Sikh Drug and Alcohol Question Answer Notes Total Score: 0 Interpretation: No problems reported Alcohol Screening: Question Answer Notes Did you [...] FOR REFERRAL No Information VITAL SIGNS Weight 233.4 lbs Aug, Weight-kg 105.87 kg Aug, Height 64 in Aug, BMI 40.06 kg/m2 Aug, Heart Rate 89 /min Aug, Respiratory Rate 16 /min Aug, Temperature 96.9 degrees Fahrenheit Aug, Oximetry 95 Aug, Blood pressure systolic 141 mm Hg Aug, Blood pressure diastolic 84 mm Hg Aug, MEDICATIONS Medication SIG (Take, Route, Frequency, Duration) Notes Start Da te End Date Status Losartan Potassium 50 MG 1 tablet Orally Once a day for 90 day(s) Active Toujeo SoloStar 300 UNIT/ML 38 units Subcutaneous Daily for 30 days Active Compazine 10 MG 1 tablet as needed Orally Three times a day UNSURE OF DOSE Active ZyrTEC Allergy 10 MG 1 tablet Orally Once a day for 30 days Active Zocor 20 MG 1 tab Orally Once a day for 90 days Active Zanaflex 2 MG 1 tablet Orally Once a day Active Zofran 4 MG 1 tablet Orally Once a day for 30 day(s) PRN Not-Taking Topamax 50 MG 1 tablet Orally Once a day Active Flonase 50 MCG/ACT 1 spray in each nostril Nasally Once a day fo r 30 day(s) Aug, Active Vitamin D3 50 MCG (2000 UT) 1 capsule Orally Once a day for 30 day(s) Active Singulair 10 MG 1 tablet in the evening Orally Once a day for 30 days Active Xyzal 5 MG 1 tablet in the evening Orally Once a day Active clonazePAM 0.5 MG (Schedule IV Drug) TAKE 1 TA BLET BY MOUTH TWICE DAILY NEEDED . DO NOT EXCEED 2 PER 24 HOURS Oral for 30 Active Cymbalta 60 MG 1 capsule Orally Once a day 120mg total Active Meclizine HCl 25 MG 1 tablet as needed Orally Once a day for 30 day(s) February, Active Magnesium 300 MG 1 capsule with a meal Orally Once a day Active Bydureon BCise 2 MG/0.85ML as directed Subcutaneous once a week for 30 days May, Active Doxycycline Hyclate 100 MG 1 capsule Orally Twice a day for 7 da y(s) May, Not-Taking metFORMIN HCl 1000 MG 1 tablet with meals Orally Twice a day for 90 d ays Active Doxycycline Monohydrate 100 MG 1 capsule Orally every 12 hrs for 10 day(s) Jun, Not-Taking Test Strips - as directed intravenously bid for 90 days Oct, Active Lidocaine-Prilocaine 2.5-2.5 % apply entire tube to ri ght nipple 2 h prior to coming to hospital for surgery. Cover with plastic Externally once for 1 day Not-Taking Latanoprost 0.005 % INSTILL 1 DROP INTO EACH EYE AT BEDTIME Opht halmic for 75 Active traZODone HCl 100 MG 1-2 tablets at bedtime Orally QHS Active hydrOXYzine Pamoate 25 mg 1 capsule Orally 1 capsule i n the am, 4 at night, 1 cap as needed for 30 Days Active Abilify 15 MG 1/2 tablet Orally Daily Active BD Pen Needle Original U/F 29G X 12.7MM as directed centeno bcutaneously as directed for 90 day(s) Jan, Active Omeprazole 40 MG 1 capsule 30 minutes before morning meal orally Daily for 90 days Active PROCEDURES No Information RESULTS No Results REASON FOR VISIT PRE-OP FOR WWBC/SEE PRE-OP NOTE MEDICAL (GENERAL) HISTORY Type Description Date Medical [...] Hospitalization History [facility] 09/18/18 Hospitalization History [facility] 10/29/20- Goals Section No Information Health Concerns No Information MEDICAL EQUIPMENT No Information MENTAL STATUS No Information FUNCTIONAL STATUS No Information ASSESSMENTS Encounter Date Diagnosis Assessment Notes Treatment Notes Treatm ent Clinical Notes Aug, Pre-op evaluation (ICD-10 - Z01.818) I feel that the patient's acute and chronic medical conditions are fully optimized at the present time. There are no readily alterable factors that could lower the patient's perioperative risk at this time. No recommendations for medication changes. I have recommended the patient stop all medications as recommended by their surgeon and anesthesia. Results of chest x-ray, EKG, CMP, and CBC are pending. Aug, Hypertension, unspecified type (ICD-10 - I10) BP minimally elevated at this visit. Patient reports she forgot to take her medication this morning. Patient remains asymptomatic. Patient reports blood pressures at home run within normal limits. PLAN OF TREATMENT Treatment Notes Assessment Notes Clinical Notes Pre-op evaluation I feel that the viktor ent's acute and chronic medical conditions are fully optimized at the present time. There are no readily alterable factors that could lower the patient's perioperative risk at this t lew.No recommendations for medication changes.I have recommended the patient stop all medications as recommended by their surgeon and anesthesia.Results of chest x-ray, EKG, CMP, and CBC are pending. Hypertension, unspecified type BP minima lly elevated at this visit. Patient reports she forgot to take her medication this morning. Patient remains asymptomatic. Patient reports blood pressures at home run within normal limits. Pending Tests Test Name Order Date Electrocardiogram (EKG) 2021-08-24 CBC with Differential 2021-08-24 Comprehensive Metabolic Profile (CMP) 2021-08-24 PLZ CHEST 2 VIEW 2021-08-24 Next Appt Details 3 Months Reason:DM f/u Provider Name:Marcy Velez, 29-08-23 04:30:00 PM, [address] [place] [address], , [place], [address], Provider Name:Marcy Velez, 28-09-03 11:00:00 AM, [address] [facility], , [place], [address], Provider Name:Deidre Ansariullon, 2021-11-24 02:00:00 PM, [address] [facility], , [place], [address], Follow Up:3 MonthsDM f/u Insurance Providers Payer Name Payer Address Payer Phone Insured Name Patient Relati onship to Insured Coverage Start Date Coverage End Date MEDICARE Part A and B [address] [facility] [phone] JESSI CLOUD self [facility] [address] [address] [facility] [phone] JESSI CLOUD
--- OUTSIDE RECORDS SUMMARY | 2021-08-31 22:40 | CCD ---
Author Author [facility] Organization [facility] Address Unknown Phone Unavailable Care Team Providers Care Composing Room Supervisor Name Role Phone Deidre Pickering Unavailable PROBLEMS Type Condition ICD9-CM Code UMI16-SG Code Onset Dates Condition S tatus W/U Status Risk SNOMED Code Notes Problem Allergic rhinitis, unspecified seasonality, unspecifie d trigger J30.9 Active confirmed 00030511 Problem Insomnia, unspecified type G47.00 Active confirmed 217870580 Problem Gastroesophageal reflux disease, esophagitis pre sence not specified K21.9 Active confirmed 002290322 Problem Type 2 diabetes mellitus without complications E11 .9 Active confirmed 646106355 Problem Hypertension, unspecified type I10 Active confir med 35471634 Problem Reflex sympathetic dystrophy G90.50 Active confirme d 922276793 Problem Morbid obesity E66.01 Active confirmed 61068 6002 Problem Perimenopause N95.1 Active confirmed 503656 780314501 Problem Bipolar 1 disorder F31.9 Active confirmed 3 70660898 Problem Abnormal mammogram R92.8 Active confirmed 1 99317320 Problem Lumbosacral spondylosis with radiculopathy M47.27 Active confirmed 514625962 Problem Hematoma of right breast N64.89 Active confirm ed 58572542108732241 Problem Bipolar affective disorder, current episode depressed, current episode severity unspecified F31.30 Active confirmed 854901521 Problem Mixed hyperlipidemia E78.2 Active confirmed 484850472 Problem Malignant neoplasm of overla pping sites of right female breast, unspecified estrogen receptor status C50.811 Active confirmed 399344492 Problem Post-traumatic stress disorder, unspecified F43.10 Active confirmed 27576882 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 Active conf irmed 402823688 Problem Abnormal mammogram of right breast R92.8 Activ e confirmed 386032721 Problem 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 Active confirmed 8694046085339962 Problem 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 Active confirmed 593908492 Problem Hematoma (nontraumatic) of breast N64.89 Active confirmed 030716581 ALLERGIES Allergen (clinical drug ingredient) Drug/Non Drug [...] Anaphylaxis Non Drug Allergy Active gabapentin Neurontin(ND Code:[address]-56) Orbital pain, black dots Drug Allergy Active Magnesium(ND Code:[address]-02) mouth sores Drug Allergy Active amitriptyline Amitriptyline HCl(ND Code:[address]-85) Mouth sores Drug Allergy Active pregabalin Lyrica([facility]C Code:[address]-27) Orbital pain, black dot s Drug Allergy Active valproate Depakote(ND Code:[address]-44) REYES Drug Allergy Active IV Dye Anaphylaxis Drug Allergy Active Zinc(NDC Code:63099-97171) Hives Drug Allergy Active ENCOUNTERS from 1968 to 2021-07-09 Encounter Location Date Provider Diagnosis [address] [phone] [place] [address] 30 Jun, 2021 Deidre Pickering IMMUNIZATIONS Vaccine Route Administration Date [...] Unknown Language: Question Answer Notes Languages spoken: Armenian Hinduism: Question Answer Notes Hinduism 33 None Alcohol Screening: Question Answer Notes [...] Information RESULTS No Results REASON FOR VISIT Byduremarv MEDICAL (GENERAL) HISTORY Type Description Date Medical [...] Hospitalization History [facility] 09/18/18 Hospitalization History [facility]arda 10/29/20- Goals Section No Information Health Concerns No Information MEDICAL EQUIPMENT No Information MENTAL STATUS No Information FUNCTIONAL STATUS No Information ASSESSMENTS No Information PLAN OF TREATMENT Medication Medication Name Sig Start Date Stop Date Doxycycline Monohydrate 100 MG 1 capsule Orally every 12 hrs for 10 day(s) Jun, Next Appt Details Provider Name:Deidre Pickering, 2021-08-24 02:00:00 PM, [address] [facility], , [place], [address], Insurance Providers Payer Name Payer Address Payer Phone Insured Name Patient Relati onship to Insured Coverage Start Date Coverage End Date [facility] [address] [address] [facility] [phone] JESSI CLOUD MEDICARE Part A and B [address] [facility] [phone] JESSI CLOUD self
--- OUTSIDE RECORDS SUMMARY | 2021-08-31 22:40 | CCD ---
Author Author [facility] Organization [facility] Address Unknown Phone Unavailable Care Team Providers Care Umbrella Frame Maker Name Role Phone Marcy Velez Unavailable PROBLEMS Type Condition ICD9-CM Code [id number] Code Onset Dates Condition S tatus W/U Status Risk SNOMED Code Notes Problem Allergic rhinitis, unspecified seasonality, unspecifie d trigger J30.9 Active confirmed 56094880 Problem Insomnia, unspecified type G47.00 Active confirmed 013742065 Problem Gastroesophageal reflux disease, esophagitis pre sence not specified K21.9 Active confirmed 804052961 Problem Type 2 diabetes mellitus without complications E11 .9 Active confirmed 166203898 Problem Hypertension, unspecified type I10 Active confir med 91307590 Problem Reflex sympathetic dystrophy G90.50 Active confirme d 290943664 Problem Morbid obesity E66.01 Active confirmed 12824 6002 Problem Perimenopause N95.1 Active confirmed 024635 080043742 Problem Bipolar 1 disorder F31.9 Active confirmed 3 41008300 Problem Abnormal mammogram R92.8 Active confirmed 1 85093879 Problem Lumbosacral spondylosis with radiculopathy M47.27 Active confirmed 465334424 Problem Hematoma of right breast N64.89 Active confirm ed 86870234346702723 Problem Bipolar affective disorder, current episode depressed, current episode severity unspecified F31.30 Active confirmed 776712659 Problem Mixed hyperlipidemia E78.2 Active confirmed 837612306 Problem Malignant neoplasm of overla pping sites of right female breast, unspecified estrogen receptor status C50.811 Active confirmed 613459444 Problem Post-traumatic stress disorder, unspecified F43.10 Active confirmed 34074354 Problem half-way current use of insulin Z79.4 Active conf irmed 563865025 Problem Abnormal mammogram of right breast R92.8 Activ e confirmed 617675357 Problem 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 Active confirmed 5104569575830261 Problem 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 Active confirmed 431859393 Problem Hematoma (nontraumatic) of breast N64.89 Active confirmed 780198796 ALLERGIES Allergen (clinical drug ingredient) Drug/Non Drug Allergy do cumented on EMR Reaction Allergy Type Onset Date Status Lidocaine & Adhesive Sheet rapid heart rate, ringing in ea r Drug Allergy Active Magnesium(ND Code:[address]-38) mouth sores Drug Allergy Inactive Inderal Hives Drug Allergy Active Amoxicillin Rash Drug Allergy Active pregabalin Lyrica(ND Code:[address]-28) Orbital pain, black dot s Drug Allergy Active Riboflavin Mouth sores Drug Allergy Active MRI Dye Anaphylaxis Non Drug Allergy Active gabapentin Neurontin(ND Code:[address]-21) Orbital pain, black dots Drug Allergy Active amitriptyline Amitriptyline HCl(ND Code:[address]-75) Mouth sores Drug Allergy Active Sulfasalazine Sulfa Antibiotics Hives Drug Allergy Ac tive valproate Depakote([facility] Code:[address]-64) REYES Drug Allergy Active IV Dye Anaphylaxis Drug Allergy Active Zinc(ND Code:35952-66114) Hives Drug Allergy Active ENCOUNTERS from 1968 to 2021-08-27 Encounter Location Date Provider Diagnosis [facility] [phone] [place] [address] 16 Aug, 2021 Marcy Velez IMMUNIZATIONS Vaccine Route Administration Date [...] Education Language: Question Answer Notes Languages spoken: Thai Church: Question Answer Notes Church [facility] Question Answer Notes Total [...] Information RESULTS No Results REASON FOR VISIT mammo/preop clearance MEDICAL (GENERAL) HISTORY Type Description Date Medical [...] Hospitalization History [facility] 09/18/18 Hospitalization History [facility] 10/29/20- Goals Section No Information Health Concerns No Information MEDICAL EQUIPMENT No Information MENTAL STATUS No Information FUNCTIONAL STATUS No Information ASSESSMENTS No Information PLAN OF TREATMENT Next Appt Details Provider Name:Marcy Velez, 29-08-23 02:15:00 PM, [address] [place] [address], , [place], [address], Provider Name:Marcy Velez, 29-08-29 10:30:00 AM, [address] [place] [address], , [place], [address], Provider Name:Marcy Velez, 28-09-20 09:30:00 AM, [address] [place] [address], , [place], [address], Provider Name:Deidrezita Pickering, 2021-11-24 02:00:00 PM, [address] [facility], , [place], [address], Insurance Providers Payer Name Payer Address Payer Phone Insured Name Patient Relati onship to Insured Coverage Start Date Coverage End Date [facility] [address] [address] [facility] [phone] JESSI MANCINI MEDICARE Part A and B [address] [facility] [phone] JESSI MANCINI self
--- OUTSIDE RECORDS SUMMARY | 2021-08-31 22:40 | CCD ---
Author Author [facility] Organization [facility] Address Unknown Phone Unavailable Care Team Providers Care Application Defense Manager Name Role Phone Deidre Pickering Unavailable PROBLEMS Type Condition ICD9-CM Code [id number] Code Onset Dates Condition S tatus W/U Status Risk SNOMED Code Notes Problem Allergic rhinitis, unspecified seasonality, unspecifie d trigger J30.9 Active confirmed 53765344 Problem Insomnia, unspecified type G47.00 Active confirmed 869546206 Problem Gastroesophageal reflux disease, esophagitis pre sence not specified K21.9 Active confirmed 744566925 Problem Type 2 diabetes mellitus without complications E11 .9 Active confirmed 999340733 Problem Hypertension, unspecified type I10 Active confir med 55970009 Problem Reflex sympathetic dystrophy G90.50 Active confirme d 718278046 Problem Morbid obesity E66.01 Active confirmed 92895 6002 Problem Perimenopause N95.1 Active confirmed 661535 546860607 Problem Bipolar 1 disorder F31.9 Active confirmed 3 45438075 Problem Abnormal mammogram R92.8 Active confirmed 1 16423674 Problem Lumbosacral spondylosis with radiculopathy M47.27 Active confirmed 592785091 Problem Hematoma of right breast N64.89 Active confirm ed 48836320459468223 Problem Bipolar affective disorder, current episode depressed, current episode severity unspecified F31.30 Active confirmed 710796827 Problem Mixed hyperlipidemia E78.2 Active confirmed 560195869 Problem Malignant neoplasm of overla pping sites of right female breast, unspecified estrogen receptor status C50.811 Active confirmed 468544423 Problem Post-traumatic stress disorder, unspecified F43.10 Active confirmed 80779000 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 Active conf irmed 824174514 Problem Abnormal mammogram of right breast R92.8 Activ e confirmed 264823074 Problem 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 Active confirmed 5276674401787714 Problem 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 Active confirmed 323818523 Problem Hematoma (nontraumatic) of breast N64.89 Active confirmed 028770854 ALLERGIES Allergen (clinical drug ingredient) Drug/Non Drug [...] Anaphylaxis Non Drug Allergy Active gabapentin Neurontin(ND Code:[address]-83) Orbital pain, black dots Drug Allergy Active Magnesium(ND Code:[address]-04) mouth sores Drug Allergy Active amitriptyline Amitriptyline HCl(ND Code:[address]-88) Mouth sores Drug Allergy Active pregabalin Lyrica(NDC Code:[address]-57) Orbital pain, black dot s Drug Allergy Active valproate Depakote(ND Code:[address]-79) REYES Drug Allergy Active IV Dye Anaphylaxis Drug Allergy Active Zinc(NDC Code:89596-31331) Hives Drug Allergy Active ENCOUNTERS from 1968 to 2021-07-22 Encounter Location Date Provider Diagnosis [facility] [id number] [place] [address] [place] [address] 14 Jul, 2021 Deidre Pickering Type 2 diabetes mellitus wit hout complications E11.9 ; Mixed hyperlipidemia E78.2 and Hypertension, unspecified type I10 IMMUNIZATIONS Vaccine [...] Unknown Language: Question Answer Notes Languages spoken: Cambodian Latter Day: Question Answer Notes Latter Day 33 None Alcohol Screening: Question Answer Notes [...] Notes Start Da te End Date Status Zocor 20 MG 1 tab Orally Once a day for 90 days Active BD Pen Needle Original U/F 29G X 12.7MM as directed centeno bcutaneously as directed for 90 day(s) Jan, Active metFORMIN HCl 1000 MG 1 tablet with meals Orally Twice a day for 90 d ays Active Omeprazole 40 MG 1 capsule 30 minutes before morning meal orally Daily for 90 days Active traZODone HCl 100 MG 1-2 tablets at bedtime Orally QHS Active Vitamin D3 50 MCG (1999 UT) 1 capsule Orally Once a day for 30 day(s) Active Abilify 15 MG 1/2 tablet Orally Daily Active clonazePAM 0.5 MG (Schedule IV Drug) TAKE 1 TA BLET BY MOUTH TWICE DAILY NEEDED . DO NOT EXCEED 2 PER 24 HOURS Oral for 30 Active hydrOXYzine Pamoate 25 mg 1 capsule Orally 1 capsule i n the am, 4 at night, 1 cap as needed for 30 Days Active Latanoprost 0.005 % INSTILL 1 DROP INTO EACH EYE AT BEDTIME Opht halmic for 75 Active Topamax 50 MG 1 tablet Orally Once a day Active Zofran 4 MG 1 tablet Orally Once a day for 30 day(s) PRN Active Toujeo SoloStar 300 UNIT/ML 38 units Subcutaneous Daily for 30 days Active Doxycycline Monohydrate 100 MG 1 capsule Orally every 12 hrs for 10 day(s) Jun, Active ZyrTEC Allergy 10 MG 1 tablet Orally Once a day for 30 days Active Doxycycline Hyclate 100 MG 1 capsule Orally Twice a day for 7 da y(s) May, Not-Taking Test Strips - as directed intravenously bid for 90 days Oct, Active Cymbalta 60 MG 1 capsule Orally Once a day 90mg total Active Meclizine HCl 25 MG 1 tablet as needed Orally Once a day for 30 day(s) February, Active Losartan Potassium 50 MG 1 tablet Orally Once a day for 90 day(s) Active Bydureon BCise 2 MG/0.85ML as directed Subcutaneous once a week for 30 days May, Active Compazine 10 MG 1 tablet as [...] Hospitalization History [facility] 09/18/18 Hospitalization History [facility] [place] [facility] [place] 10/29/20- Goals Section No Information Health Concerns No Information MEDICAL EQUIPMENT No Information MENTAL STATUS No Information FUNCTIONAL STATUS No Information ASSESSMENTS Encounter Date Diagnosis Assessment Notes Treatment Notes Treatm ent Clinical Notes Jul, Type 2 diabetes mellitus without complications ( ICD-10 - E11.9) Jul, Mixed hyperlipidemia (ICD-10 - E78.2) Jul, Hypertension, unspecified type (ICD-10 - I10) PLAN OF TREATMENT Medication Medication Name Sig Start Date Stop Date metFORMIN HCl 1000 MG 1 tablet with meals Orally Twice a day for 90 days Losartan Potassium 50 MG 1 tablet Orally Once a day for 90 day(s ) Doxycycline Monohydrate 100 MG 1 capsule Orally every 12 hrs for 10 day(s) Jun, Zocor 20 MG 1 tab Orally Once a day for 90 days Next Appt Details Provider Name:Maru Johnson, 2021-08-02 10:00:00 AM, [address] [place] [address], , [place], [address] Provider Name:Marcy Velez, 29-08-10 09:30:00 AM, [address] [place] [address], , [place], [address], Provider Name:Deidrezita Pickering, 2021-08-24 02:00:00 PM, [address] [facility], , [place], [address], Insurance Providers Payer Name Payer Address Payer Phone Insured Name Patient Relati onship to Insured Coverage Start Date Coverage End Date [facility] [address] [address] [facility] [phone] JESSI CLOUD MEDICARE Part A and B [address] [facility] [phone] JESSI CLOUD self
--- OUTSIDE RECORDS SUMMARY | 2021-08-31 22:40 | CCD ---
Author Author [facility] Organization [facility] Address Unknown Phone Unavailable Care Team Providers Care Saturator Operator Name Role Phone Deidre Pickering Unavailable PROBLEMS Type Condition ICD9-CM Code [id number] Code Onset Dates Condition S tatus W/U Status Risk SNOMED Code Notes Problem Allergic rhinitis, unspecified seasonality, unspecifie d trigger J30.9 Active confirmed 77257734 Problem Insomnia, unspecified type G47.00 Active confirmed 928624652 Problem Gastroesophageal reflux disease, esophagitis pre sence not specified K21.9 Active confirmed 407776437 Problem Type 2 diabetes mellitus without complications E11 .9 Active confirmed 038362263 Problem Hypertension, unspecified type I10 Active confir med 04895198 Problem Reflex sympathetic dystrophy G90.50 Active confirme d 692102056 Problem Morbid obesity E66.01 Active confirmed 02223 6002 Problem Perimenopause N95.1 Active confirmed 339843 406272211 Problem Bipolar 1 disorder F31.9 Active confirmed 3 88419308 Problem Abnormal mammogram R92.8 Active confirmed 1 89966213 Problem Lumbosacral spondylosis with radiculopathy M47.27 Active confirmed 751279435 Problem Hematoma of right breast N64.89 Active confirm ed 72583393517111782 Problem Bipolar affective disorder, current episode depressed, current episode severity unspecified F31.30 Active confirmed 916797535 Problem Mixed hyperlipidemia E78.2 Active confirmed 674405801 Problem Malignant neoplasm of overla pping sites of right female breast, unspecified estrogen receptor status C50.811 Active confirmed 130149463 Problem Post-traumatic stress disorder, unspecified F43.10 Active confirmed 47954151 Problem 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 Active conf irmed 114257928 Problem Abnormal mammogram of right breast R92.8 Activ e confirmed 954749969 Problem 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 Active confirmed 2371703749007863 Problem 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 Active confirmed 189637851 Problem Hematoma (nontraumatic) of breast N64.89 Active confirmed 738746504 ALLERGIES Allergen (clinical drug ingredient) Drug/Non Drug [...] Anaphylaxis Non Drug Allergy Active gabapentin Neurontin(ND Code:[address]-26) Orbital pain, black dots Drug Allergy Active Magnesium(ND Code:[address]-64) mouth sores Drug Allergy Active amitriptyline Amitriptyline HCl(ND Code:[address]-05) Mouth sores Drug Allergy Active pregabalin Lyrica(NDC Code:[address]-43) Orbital pain, black dot s Drug Allergy Active valproate Depakote(ND Code:[address]-44) REYES Drug Allergy Active IV Dye Anaphylaxis Drug Allergy Active Zinc(NDC Code:79221-61716) Hives Drug Allergy Active ENCOUNTERS from 1968 to 2021-07-06 Encounter Location Date Provider Diagnosis [address] [phone] [place] [address] Jun, Deidre Pickering IMMUNIZATIONS Vaccine Route Administration [...] Unknown Language: Question Answer Notes Languages spoken: Nepali Yazdanism: Question Answer Notes Yazdanism 33 None Alcohol Screening: Question Answer Notes [...] Information RESULTS No Results REASON FOR VISIT REFILL MEDICAL (GENERAL) HISTORY Type Description Date Medical [...] History [facility] 09/18/18 Hospitalization History [facility] 10/29/20- Goals Section No Information Health Concerns No Information MEDICAL EQUIPMENT No Information MENTAL STATUS No Information FUNCTIONAL STATUS No Information ASSESSMENTS No Information PLAN OF TREATMENT Medication Medication Name Sig Start Date Stop Date Doxycycline Monohydrate 100 MG 1 capsule Orally every 12 hrs for 10 day(s) Jun, Next Appt Details Provider Name:Deidre Pickering, 2021-08-24 02:00:00 PM, [address] [facility], , [place], [address], Insurance Providers Payer Name Payer Address Payer Phone Insured Name Patient Relati onship to Insured Coverage Start Date Coverage End Date MEDICARE Part A and B [address] [facility] [phone] JESSI CLOUD self [facility]MR [facility] [address] [address] [facility] [id number] JESSI CLOUD
--- OUTSIDE RECORDS SUMMARY | 2021-08-31 22:40 | CCD ---
Author Author [facility] Organization [facility] Address Unknown Phone Unavailable Care Team Providers Care Creative Services Producer Name Role Phone Deidre Pickering Unavailable PROBLEMS Type Condition ICD9-CM Code [id number] Code Onset Dates Condition S tatus W/U Status Risk SNOMED Code Notes Problem Allergic rhinitis, unspecified seasonality, unspecifie d trigger J30.9 Active confirmed 56488109 Problem Insomnia, unspecified type G47.00 Active confirmed 965711953 Problem Gastroesophageal reflux disease, esophagitis pre sence not specified K21.9 Active confirmed 073536787 Problem Type 2 diabetes mellitus without complications E11 .9 Active confirmed 644529383 Problem Hypertension, unspecified type I10 Active confir med 98554155 Problem Reflex sympathetic dystrophy G90.50 Active confirme d 891699521 Problem Morbid obesity E66.01 Active confirmed 30860 6002 Problem Perimenopause N95.1 Active confirmed 596543 675714384 Problem Bipolar 1 disorder F31.9 Active confirmed 3 40462535 Problem Abnormal mammogram R92.8 Active confirmed 1 35198049 Problem Lumbosacral spondylosis with radiculopathy M47.27 Active confirmed 744697644 Problem Hematoma of right breast N64.89 Active confirm ed 52875257089572807 Problem Bipolar affective disorder, current episode depressed, current episode severity unspecified F31.30 Active confirmed 593443050 Problem Mixed hyperlipidemia E78.2 Active confirmed 311659773 Problem Malignant neoplasm of overla pping sites of right female breast, unspecified estrogen receptor status C50.811 Active confirmed 795305640 Problem Post-traumatic stress disorder, unspecified F43.10 Active confirmed 13010225 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 Active conf irmed 685156813 Problem Abnormal mammogram of right breast R92.8 Activ e confirmed 972460019 Problem 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 Active confirmed 3585648944052615 Problem 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 Active confirmed 854234057 Problem Hematoma (nontraumatic) of breast N64.89 Active confirmed 900764803 ALLERGIES Allergen (clinical drug ingredient) Drug/Non Drug Allergy do cumented on EMR Reaction Allergy Type Onset Date Status Lidocaine & Adhesive Sheet rapid heart rate, ringing in ea r Drug Allergy Active Magnesium(ND Code:[address]-51) mouth sores Drug Allergy Inactive Inderal Hives Drug Allergy Active Amoxicillin Rash Drug Allergy Active pregabalin Lyrica(ND Code:[address]-28) Orbital pain, black dot s Drug Allergy Active Riboflavin Mouth sores Drug Allergy Active MRI Dye Anaphylaxis Non Drug Allergy Active gabapentin Neurontin(ND Code:[address]-03) Orbital pain, black dots Drug Allergy Active amitriptyline Amitriptyline HCl(ND Code:[address]-18) Mouth sores Drug Allergy Active Sulfasalazine Sulfa Antibiotics Hives Drug Allergy Ac tive valproate Depakote([facility] Code:[address]-36) REYES Drug Allergy Active IV Dye Anaphylaxis Drug Allergy Active Zinc(ND Code:05264-77863) Hives Drug Allergy Active ENCOUNTERS from 1968 to 2021-08-27 Encounter Location Date Provider Diagnosis [address] [phone] [place] [address] Aug, Deidre Pickering IMMUNIZATIONS Vaccine Route Administration Date [...] Education Language: Question Answer Notes Languages spoken: Hungarian Yazidism: Question Answer Notes Yazidism 13 Hindu Drug and Alcohol Question Answer Notes Total [...] Information RESULTS No Results REASON FOR VISIT pre-op testing complete MEDICAL (GENERAL) HISTORY Type Description Date Medical [...] Details Provider Name:Marcy Velez, 29-08-23 02:15:00 PM, [address] [place] [address], , [place], [address], Provider Name:Marcy Velez, 29-08-29 10:30:00 AM, [address] [place] [address], , [place], [address], Provider Name:Marcy Velez, 28-09-20 09:30:00 AM, [address] [place] [address], , [place], [address], Provider Name:Deidre Raheel, 2021-11-24 02:00:00 PM, [address] [facility], , [place], [address], Insurance Providers Payer Name Payer Address Payer Phone Insured Name Patient Relati onship to Insured Coverage Start Date Coverage End Date [facility] [address] [address] [facility] [phone] JESSI CLOUD MEDICARE Part A and B [address] [facility] [phone] JESSI CLOUD self
--- OUTSIDE RECORDS SUMMARY | 2021-08-31 22:40 | CCD ---
Author Author [facility] Organization [facility] Address Unknown Phone Unavailable Care Team Providers Care Quality Consultant Name Role Phone Eunice Galeano Unavailable PROBLEMS Type Condition ICD9-CM Code [id number] Code Onset Dates Condition S tatus W/U Status Risk SNOMED Code Notes Problem Allergic rhinitis, unspecified seasonality, unspecifie d trigger J30.9 Active confirmed 45903483 Problem Insomnia, unspecified type G47.00 Active confirmed 959966788 Problem Gastroesophageal reflux disease, esophagitis pre sence not specified K21.9 Active confirmed 957886094 Problem Type 2 diabetes mellitus without complications E11 .9 Active confirmed 496479436 Problem Hypertension, unspecified type I10 Active confir med 92447077 Problem Reflex sympathetic dystrophy G90.50 Active confirme d 886870888 Problem Morbid obesity E66.01 Active confirmed 36463 6002 Problem Perimenopause N95.1 Active confirmed 011016 088230670 Problem Bipolar 1 disorder F31.9 Active confirmed 3 72522603 Problem Abnormal mammogram R92.8 Active confirmed 1 49152488 Problem Lumbosacral spondylosis with radiculopathy M47.27 Active confirmed 768294547 Problem Hematoma of right breast N64.89 Active confirm ed 54072835653398045 Problem Bipolar affective disorder, current episode depressed, current episode severity unspecified F31.30 Active confirmed 906970226 Problem Mixed hyperlipidemia E78.2 Active confirmed 778250760 Problem Malignant neoplasm of overla pping sites of right female breast, unspecified estrogen receptor status C50.811 Active confirmed 757697759 Problem Post-traumatic stress disorder, unspecified F43.10 Active confirmed 04112711 Problem 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 Active conf irmed 400924043 Problem Abnormal mammogram of right breast R92.8 Activ e confirmed 074961281 Problem 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 Active confirmed 2000120065521508 Problem 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 Active confirmed 537392002 Problem Hematoma (nontraumatic) of breast N64.89 Active confirmed 927085382 ALLERGIES Allergen (clinical drug ingredient) Drug/Non Drug [...] Anaphylaxis Non Drug Allergy Active gabapentin Neurontin(ND Code:[address]-65) Orbital pain, black dots Drug Allergy Active Magnesium(ND Code:[address]-76) mouth sores Drug Allergy Active amitriptyline Amitriptyline HCl(ND Code:[address]-33) Mouth sores Drug Allergy Active pregabalin Lyrica(ND Code:[address]-55) Orbital pain, black dot s Drug Allergy Active valproate Depakote(ND Code:[address]-40) REYES Drug Allergy Active IV Dye Anaphylaxis Drug Allergy Active Zinc(NDC Code:20198-65649) Hives Drug Allergy Active ENCOUNTERS from 1968 to 2021-06-02 Encounter Location Date Provider Diagnosis [address] [phone] [place] [address] May, Eunice Galeano Post-traumatic stres s disorder, unspecified F43.10 and Bipolar affective disorder, current episode depressed, current episode severity unspecified F31.30 IMMUNIZATIONS Vaccine Route Administration Date Status Influenza [...] Language: Question Answer Notes Languages spoken: Malay Adventist: Question Answer Notes Adventist 33 None Alcohol Screening: Question Answer Notes [...] Notes Start Da te End Date Status Flonase 50 MCG/ACT 1 spray in each nostril Nasally Once a day fo r 30 day(s) Aug, Active hydrOXYzine Pamoate 25 mg 1 capsule Orally 1 capsule i n the am, 4 at night, 1 cap as needed for 30 Days Active Latanoprost 0.005 % INSTILL 1 DROP INTO EACH EYE AT BEDTIME Opht halmic for 75 Active Test Strips - as directed intravenously bid for 90 days Oct, Active traZODone HCl 100 MG 1-2 tablets at bedtime Orally QHS Active BD Pen Needle Original U/F 29G X 12.7MM as directed centeno bcutaneously as directed for 90 day(s) Jan, Active Xyzal 5 MG 1 tablet in the evening Orally Once a day Active Bydureon BCise 2 MG/0.85ML as directed Subcutaneous once a week for 30 days May, Active metFORMIN HCl 1000 MG 1 tablet with meals Orally Twice a day Active Abilify 15 MG 1/2 tablet Orally Daily Active Zofran 4 MG 1 tablet Orally Once a day for 30 day(s) PRN Active Omeprazole 40 MG 1 capsule 30 minutes before morning meal orally Daily for 90 days Active Singulair 10 MG 1 tablet in the evening Orally Once a day for 30 days Active Losartan Potassium 50 MG 1 tablet Orally Once a day for 90 day(s) Active clonazePAM 0.5 MG (Schedule IV Drug) TAKE 1 TA BLET BY MOUTH TWICE DAILY NEEDED . DO NOT EXCEED 2 PER 24 HOURS Oral for 30 Active Zocor 20 MG 1 tab Orally Once a day Active Cymbalta 60 MG 1 capsule Orally Once a day 90mg total Active Zanaflex 2 MG 1 tablet Orally Once a day Active Compazine 10 MG 1 tablet as needed Orally Three times a day UNSURE OF DOSE Active Toujeo SoloStar 300 UNIT/ML 38 units Subcutaneous Daily for 30 days Active Topamax 50 MG 1 tablet Orally Once a day Active Meclizine HCl 25 MG 1 tablet as needed Orally Once a day for 30 day(s) February, Active ZyrTEC Allergy 10 MG 1 tablet [...] Hospitalization History [facility] 09/[facility]18 Hospitalization History [facility] 10/29/20- Goals Section No Information Health Concerns No Information MEDICAL EQUIPMENT No Information MENTAL STATUS No Information FUNCTIONAL STATUS No Information ASSESSMENTS Encounter Date Diagnosis Assessment Notes Treatment Notes Treatm ent Clinical Notes May, Post-traumatic stress disorder, unspecified (ICD -10 - F43.10) Jessi attended scheduled follow up appointment. Jessi presents for treatment with history of PTSD and current depressive and anxious symptomology. Processed time since previous appointment, current stressors, discussed efforts made to manage symptoms. Jessi is scheduled for follow up appointment with this insurance writer 06/17/21. Jessi is aware to call for earlier appointment if needed and to use ER for mental health emergencies. May, Bipolar affective disorder, current episode depressed, current episode severity unspecified (ICD-10 - F31.30) PLAN OF TREATMENT Medication Medication Name Sig Start Date Stop Date Kai WilsonoStar 300 UNIT/ML 38 units Subcutaneous Daily for 30 d ays Treatment Notes Assessment Notes Clinical Notes Post-traumatic stress disorder, unspecified Jessi attended scheduled follow up appointment. Jessi presents for treatment with history of PTSD and current depressive and anxious symptomology. Processed time since previous appointment, current stressors, discussed efforts made to manage symptoms. Jessi is scheduled for follow up appointment with this insurance writer 06/17/21. Jessi is aware to call for earlier appointment if needed and to use ER for mental health emergencies. Next Appt Details Provider Name:Eunice Galeano, 2021-06-17 01:00:00 PM, [id number] [employer] [facility], , [place], [address] Provider Name:Deidre Ansariullon, 2021-08-24 02:00:00 PM, [id number] [employer], , [place], [address], Insurance Providers Payer Name Payer Address Payer Phone Insured Name Patient Relati onship to Insured Coverage Start Date Coverage End Date [facility] [address] [address] [facility] [phone] JESSI CLOUD MEDICARE Part A and B [address] [facility] [address] JESSI CLOUD self
--- OUTSIDE RECORDS SUMMARY | 2021-08-31 22:40 | CCD ---
Author Author [facility] Organization [facility] Address Unknown Phone Unavailable Care Team Providers Care Electrical Engineering Manager Name Role Phone Marcy Velez Unavailable PROBLEMS Type Condition ICD9-CM Code [id number] Code Onset Dates Condition S tatus W/U Status Risk SNOMED Code Notes Problem Allergic rhinitis, unspecified seasonality, unspecifie d trigger J30.9 Active confirmed 76181523 Problem Insomnia, unspecified type G47.00 Active confirmed 312874089 Problem Gastroesophageal reflux disease, esophagitis pre sence not specified K21.9 Active confirmed 277078451 Problem Type 2 diabetes mellitus without complications E11 .9 Active confirmed 664630098 Problem Hypertension, unspecified type I10 Active confir med 42650014 Problem Reflex sympathetic dystrophy G90.50 Active confirme d 461549808 Problem Morbid obesity E66.01 Active confirmed 12776 6002 Problem Perimenopause N95.1 Active confirmed 950310 881065307 Problem Bipolar 1 disorder F31.9 Active confirmed 3 59916417 Problem Abnormal mammogram R92.8 Active confirmed 1 40453463 Problem Lumbosacral spondylosis with radiculopathy M47.27 Active confirmed 027191579 Problem Hematoma of right breast N64.89 Active confirm ed 48295497429572126 Problem Bipolar affective disorder, current episode depressed, current episode severity unspecified F31.30 Active confirmed 865379333 Problem Mixed hyperlipidemia E78.2 Active confirmed 568235534 Problem Malignant neoplasm of overla pping sites of right female breast, unspecified estrogen receptor status C50.811 Active confirmed 298739162 Problem Post-traumatic stress disorder, unspecified F43.10 Active confirmed 53818525 Problem [facility] current use of insulin Z79.4 Active conf irmed 094760004 Problem Abnormal mammogram of right breast R92.8 Activ e confirmed 035906412 Problem 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 Active confirmed 8711999525825005 Problem 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 Active confirmed 078960415 Problem Hematoma (nontraumatic) of breast N64.89 Active confirmed 827231256 ALLERGIES Allergen (clinical drug ingredient) Drug/Non Drug Allergy do cumented on EMR Reaction Allergy Type Onset Date Status amitriptyline Amitriptyline HCl([facility] Code:[address]-89) Mouth sores Drug Allergy Active Inderal Hives Drug Allergy Active IV Dye Anaphylaxis Non Drug Allergy Active Amoxicillin Rash Drug Allergy Active Riboflavin Mouth sores Drug Allergy Active MRI Dye Anaphylaxis Non Drug Allergy Active gabapentin Neurontin([facility] Code:[address]-70) Orbital pain, black dots Drug Allergy Active Magnesium([facility] Code:[address]-41) mouth sores Drug Allergy Inactive Sulfasalazine Sulfa Antibiotics Hives Drug Allergy Ac tive pregabalin Lyrica([facility] Code:[address]-81) Orbital pain, black dot s Drug Allergy Active valproate Depakote([facility] Code:[address]-81) REYES Drug Allergy Active Lidocaine & Adhesive Sheet rapid heart rate, ringing in ea r Drug Allergy Active Zinc([facility] Code:[address]01) Hives Drug Allergy Active ENCOUNTERS from 1968 to 2021-08-21 Encounter Location Date Provider Diagnosis [facility] [phone] [place] [address] 08 Aug, 2021 Marcy Velez IMMUNIZATIONS Vaccine Route [...] intravenously bid for 90 days Oct, Active Toujeo SoloStar 300 UNIT/ML 38 units Subcutaneous Daily for 30 days Active Abilify 15 MG 1/2 tablet Orally Daily Active Omeprazole 40 MG 1 capsule 30 minutes before morning meal orally Daily for 90 days Active Zanaflex 2 MG 1 tablet Orally Once a day Active Singulair 10 MG 1 tablet in the evening Orally Once a day for 30 days Active Cymbalta 60 MG 1 capsule Orally Once a day 90mg total Active clonazePAM 0.5 MG (Schedule IV Drug) TAKE 1 TA BLET BY MOUTH TWICE DAILY NEEDED . DO NOT EXCEED 2 PER 24 HOURS Oral for 30 Active Topamax 50 MG 1 tablet Orally [...] 12 hrs for 10 day(s) Jun, Active BD Pen Needle Original U/F 29G X 12.7MM as directed centeno bcutaneously as directed for 90 day(s) Jan, Active metFORMIN HCl 1000 MG 1 tablet with meals Orally Twice a day for 90 d ays Active Magnesium 300 MG 1 capsule with a meal Orally Once a day Active hydrOXYzine Pamoate 25 mg 1 capsule Orally 1 capsule i n the am, 4 at night, 1 cap as needed for 30 Days Active traZODone HCl 100 MG 1-2 tablets at bedtime Orally QHS Active Vitamin D3 50 MCG (2000 UT) [...] Information RESULTS No Results REASON FOR VISIT FYI only MEDICAL (GENERAL) HISTORY Type Description Date Medical [...] TREATMENT Next Appt Details Provider Name:Marcy Velez, 20 01:22:00 PM, [address] [facility], , [place], [address], Provider Name:Deidre Pickering, 2021-08-24 02:00:00 PM, [id number] [facility], , [place], [address], Insurance Providers Payer Name Payer Address Payer Phone Insured Name Patient Relati onship to Insured Coverage Start Date Coverage End Date [facility] [address] [address] [facility] [phone] JESSI MANCINI MEDICARE Part A and B [address] [facility] [address] JESSI MANCINI self
--- OUTSIDE RECORDS SUMMARY | 2021-08-31 22:40 | CCD ---
Author Author [facility] Organization [facility] Address Unknown Phone Unavailable Care Team Providers Care Molecular Pathologist Name Role Phone Ambreen Donovan Unavailable PROBLEMS Type Condition ICD9-CM Code YVD37-OS Code Onset Dates Condition S tatus W/U Status Risk SNOMED Code Notes Problem Allergic rhinitis, unspecified seasonality, unspecifie d trigger J30.9 Active confirmed 49706737 Problem Insomnia, unspecified type G47.00 Active confirmed 737690405 Problem Gastroesophageal reflux disease, esophagitis pre sence not specified K21.9 Active confirmed 174156253 Problem Type 2 diabetes mellitus without complications E11 .9 Active confirmed 047059900 Problem Hypertension, unspecified type I10 Active confir med 83077161 Problem Reflex sympathetic dystrophy G90.50 Active confirme d 696634813 Problem Morbid obesity E66.01 Active confirmed 59765 6002 Problem Perimenopause N95.1 Active confirmed 152475 300348034 Problem Bipolar 1 disorder F31.9 Active confirmed 3 85736410 Problem Abnormal mammogram R92.8 Active confirmed 1 21932553 Problem Lumbosacral spondylosis with radiculopathy M47.27 Active confirmed 917877151 Problem Hematoma of right breast N64.89 Active confirm ed 02656789058011463 Problem Bipolar affective disorder, current episode depressed, current episode severity unspecified F31.30 Active confirmed 326662530 Problem Mixed hyperlipidemia E78.2 Active confirmed 074653891 Problem Malignant neoplasm of overla pping sites of right female breast, unspecified estrogen receptor status C50.811 Active confirmed 068098861 Problem Post-traumatic stress disorder, unspecified F43.10 Active confirmed 80388963 Problem retirement current use of insulin Z79.4 Active conf irmed 993277870 Problem Abnormal mammogram of right breast R92.8 Activ e confirmed 404077875 Problem 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 Active confirmed 4954932520277275 Problem 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 Active confirmed 259665910 Problem Hematoma (nontraumatic) of breast N64.89 Active confirmed 796836950 ALLERGIES Allergen (clinical drug ingredient) Drug/Non Drug [...] Anaphylaxis Non Drug Allergy Active gabapentin Neurontin(ND Code:[address]-48) Orbital pain, black dots Drug Allergy Active Magnesium(ND Code:[address]-85) mouth sores Drug Allergy Active amitriptyline Amitriptyline HCl(NDC Code:[address]-01) Mouth sores Drug Allergy Active pregabalin Lyrica(NDC Code:[address]-36) Orbital pain, black dot s Drug Allergy Active valproate Depakote(ND Code:[address]-21) REYES Drug Allergy Active IV Dye Anaphylaxis Drug Allergy Active Zinc(NDC Code:42686-85981) Hives Drug Allergy Active ENCOUNTERS from 1968 to 2021-06-09 Encounter Location Date Provider Diagnosis [phone] [place] [address] May, Ambreen Zion Cough R05 ; Pharyngitis, uns pecified etiology J02.9 and Acute non-recurrent maxillary sinusitis J01.00 IMMUNIZATIONS Vaccine Route Administration Date Status Influenza [...] Language: Question Answer Notes Languages spoken: Iranian Pentecostalism: Question Answer Notes Pentecostalism 33 None Alcohol Screening: Question Answer Notes [...] FOR REFERRAL No Information VITAL SIGNS Weight 234.2 lbs May, Height 64 in May, BMI 40.20 kg/m2 May, Heart Rate 97 /min May, Respiratory Rate 18 /min May, Temperature 97.2 degrees Fahrenheit May, Oximetry 97 May, Blood pressure systolic 145 mm Hg May, Blood pressure diastolic 95 mm Hg May, MEDICATIONS Medication SIG (Take, Route, Frequency, Duration) Notes Start Da te End Date Status clonazePAM 0.5 MG (Schedule IV Drug) TAKE 1 TA BLET BY MOUTH TWICE DAILY NEEDED . DO NOT EXCEED 2 PER 24 HOURS Oral for 30 Active metFORMIN HCl 1000 MG 1 tablet with meals Orally Twice a day Active Omeprazole 40 MG 1 capsule 30 minutes before morning meal orally Daily for 90 days Active Meclizine HCl 25 MG 1 tablet as needed Orally Once a day for 30 day(s) February, Active Vitamin D3 50 MCG (1999 UT) 1 capsule Orally Once a day for 30 day(s) Active Latanoprost 0.005 % INSTILL 1 DROP INTO EACH EYE AT BEDTIME Opht halmic for 75 Active Xyzal 5 MG 1 tablet in the evening Orally Once a day Active Bydureon BCise 2 MG/0.85ML as directed Subcutaneous once a week for 30 days May, Active Doxycycline Hyclate 100 MG 1 capsule Orally Twice a day for 7 da y(s) May, Active Abilify 15 MG 1/2 tablet Orally Daily Active Test Strips - as directed intravenously bid for 90 days Oct, Active hydrOXYzine Pamoate 25 mg 1 capsule Orally 1 capsule i n the am, 4 at night, 1 cap as needed for 30 Days Active Toujeo SoloStar 300 UNIT/ML 38 units Subcutaneous Daily for 30 days Active Cymbalta 60 MG 1 capsule Orally Once a day 90mg total Active Losartan Potassium 50 MG 1 tablet Orally Once a day for 90 day(s) Active Zofran 4 MG 1 tablet Orally Once a day for 30 day(s) PRN Active Compazine 10 MG 1 tablet as needed Orally Three times a day UNSURE OF DOSE Active Zocor 20 MG 1 tab Orally Once a day Active BD Pen Needle Original U/F 29G X 12.7MM as directed centeno bcutaneously as directed for 90 day(s) Jan, Active traZODone HCl 100 MG 1-2 tablets at bedtime Orally QHS Active Topamax 50 MG 1 tablet Orally Once a day Active Singulair 10 MG 1 tablet in the evening Orally Once a day for 30 days Active Zanaflex 2 MG 1 tablet Orally Once a day Active Flonase 50 MCG/ACT 1 spray in each nostril Nasally Once a day fo r 30 day(s) Aug, Active ZyrTEC Allergy 10 MG 1 tablet Orally Once a day Active PROCEDURES No Information RESULTS Component Value Reference Range [employer] (Point of Care) Reviewed date:06/04/2021 18:06:41 Interpretation: Performing Lab:[facility], RALS INTERFACE [address] [facility] [id number] , ,[place] [address] FAVIO COVID ANTIGEN NEGATIVE NEGATIVE REASON FOR [...] release and ulnar nerve transpositio n left 2013 Surgical History CTS release right 2014 Surgical [...] Treatment Notes Treatm ent Clinical Notes May, Cough (ICD-10 - R05) Rapid covid test negative. Suspect cough secondary to PND. Treat as sinusitis at this time. A prescription for antibiotics has been sent to your pharmacy. Take all medication as directed and take probiotics over the counter to help with abdominal discomfort while on antibiotics in addition to eating plenty of yogurt. Supportive measures, ensure adequate fluid hydration, saline nasal spray, humidifier use, frequent hand washing, Take Tylenol (if >2 months of age) or Ibuprofen (if >6 months of age) for fever >100.4, rest, take medications only as prescribed. Follow up with your PCP in 1 week if symptoms persist. Return here or go to the ER for persistent or worsening symptoms. May, Pharyngitis, unspecified etiology (ICD-10 - J02. 9) see notes above May, Acute non-recurrent maxillary sinusitis (ICD-10 - J01.00) see notes above PLAN OF TREATMENT Medication Medication Name Sig Start Date Stop Date Doxycycline Hyclate 100 MG 1 capsule Orally Twice a day for 7 day(s) May, Treatment Notes Assessment Notes Clinical Notes Cough Rapid covid test neg ative. Suspect cough secondary to PND. Treat as sinusitis at this time. A prescription for antibiotics has been sent to your pharmacy. Take all medication as directed and take probiotics over the counter to help with abdominal discomfort while on antibiotics in addition to eating plenty of yogurt. Supportive measures, ensure adequate fluid hydration, saline nasal spray, humidifier use, frequent hand washing, Take Tylenol (if >2 months of age) or Ibuprofen (if >6 months of age) for fever >100.4, rest, take medications only as prescribed. Follow up with your PCP in 1 week if symptoms persist. Return here or go to the ER for persistent or worsening symptoms. Pharyngitis, unspecified etiology see no shukri above Acute non-recurrent maxillary sinusitis see notes above Treatment Notes Test Name Order Date Coronavirus 2019 Nasopharygeal (Send Out) COVID 8-27 Next Appt Details 3-4 dys, not improving Reason: Provider Name:Eunice Galeano, 2021-06-17 01:00:00 PM, [id number] [facility], , [place], [address] Provider Name:Deidre Pickering, 2021-08-24 02:00:00 PM, [id number] [facility], , [place], [address], Insurance Providers Payer Name Payer Address Payer Phone Insured Name Patient Relati onship to Insured Coverage Start Date Coverage End Date MEDICARE Part A and B [address] [facility] [id number] JESSI CLOUD [facility] [address] [address] [facility] [phone] JESSI CLOUD
--- OUTSIDE RECORDS SUMMARY | 2021-08-31 22:42 | CCD ---
Author Author [facility] Organization [facility] Address Unknown Phone Unavailable Care Team Providers Care Bulwark Carpenter Name Role Phone Dell, L Shelyta MACHINE TRY OUT SETTER Unavailable Unavailable Dell, L Shelyta MACHINE TRY OUT SETTER Unavailable Unavailable Dell, L Shelyta MACHINE TRY OUT SETTER Unavailable Unavailable Dell, L Shelyta MACHINE TRY OUT SETTER Unavailable Unavailable Dell, L Shelyta MACHINE TRY OUT SETTER Unavailable Unavailable Dell, L Shelyta MACHINE TRY OUT SETTER Unavailable Unavailable Dell, L Shelyta MACHINE TRY OUT SETTER Unavailable Unavailable Dell, L Shelyta MACHINE TRY OUT SETTER Unavailable Unavailable Dell, L Shelyta MACHINE TRY OUT SETTER Unavailable Unavailable Dell, L Shelyta MACHINE TRY OUT SETTER Unavailable Unavailable Dell, L Shelyta MACHINE TRY OUT SETTER Unavailable Unavailable Dell, L Shelyta MACHINE TRY OUT SETTER Unavailable Unavailable Dell, L Shelyta MACHINE TRY OUT SETTER Unavailable Unavailable Dell, L Shelyta MACHINE TRY OUT SETTER Unavailable Unavailable Dell, L Shelyta MACHINE TRY OUT SETTER Unavailable Unavailable Dell, L Shelyta MACHINE TRY OUT SETTER Unavailable Unavailable Dell, L Shelyta MACHINE TRY OUT SETTER Unavailable Unavailable Dell, L Shelyta MACHINE TRY OUT SETTER Unavailable Unavailable Dell, L Shelyta MACHINE TRY OUT SETTER Unavailable Unavailable Dell, L Shelyta MACHINE TRY OUT SETTER Unavailable Unavailable Dell, L Shelyta MACHINE TRY OUT SETTER Unavailable Unavailable Dell, L Shelyta MACHINE TRY OUT SETTER Unavailable Unavailable Dell, L Shelyta MACHINE TRY OUT SETTER Unavailable Unavailable Dell, L Shelyta MACHINE TRY OUT SETTER Unavailable Unavailable Dell, L Shelyta MACHINE TRY OUT SETTER Unavailable Unavailable Mandappa, Annabella CASAC Unavailable Unavailable Mandappa, Annabella CASAC Unavailable Unavailable Mandappa, Annabella CASAC Unavailable Unavailable Mandappa, Annabella CASAC Unavailable Unavailable DOMBROWSKA, K FABIENNE DO Unavailable Unavailable DOMBROWSKA, K FABIENNE DO Unavailable Unavailable DOMBROWSKA, K FABIENNE DO Unavailable Unavailable DOMBROWSKA, K FABIENNE DO Unavailable Unavailable DOMBROWSKA, K FABIENNE DO Unavailable Unavailable DOMBROWSKA, K FABIENNE DO Unavailable Unavailable DOMBROWSKA, K FABIENNE DO Unavailable Unavailable DOMBROWSKA, K FABIENNE DO Unavailable Unavailable DOMBROWSKA, K FABIENNE DO Unavailable Unavailable DOMBROWSKA, K FABIENNE DO Unavailable Unavailable DOMBROWSKA, K FABIENNE DO Unavailable Unavailable DOMBROWSKA, K FABIENNE DO Unavailable Unavailable DOMBROWSKA, K FABIENNE DO Unavailable Unavailable DOMBROWSKA, K FABIENNE DO Unavailable Unavailable DOMBROWSKA, K FABIENNE DO Unavailable Unavailable DOMBROWSKA, K FABIENNE DO Unavailable Unavailable DOMBROWSKA, K FABIENNE DO Unavailable Unavailable DOMBROWSKA, K FABIENNE DO Unavailable Unavailable DOMBROWSKA, K FABIENNE DO Unavailable Unavailable DOMBROWSKA, K FABIENNE DO Unavailable Unavailable DOMBROWSKA, K FABIENNE DO Unavailable Unavailable DOMBROWSKA, K FABIENNE DO Unavailable Unavailable DOMBROWSKA, K FABIENNE DO Unavailable Unavailable Omer FENTON MD Unavailable Unavailable [...] Unavailable Unavailable Omer FENTON MD Unavailable Unavailable Omre FENTON MD Unavailable Unavailable Omer FENTON MD [...] Unavailable Unavailable Omer FENTON MD Unavailable Unavailable Tone Bauer MD Unavailable Unavailable Tone Bauer MD Unavailable Unavailable Tone Bauer MD Unavailable Unavailable Tone Bauer MD Unavailable Unavailable Tone Bauer MD Unavailable Unavailable Tone Bauer MD Unavailable Unavailable Tone Bauer MD Unavailable Unavailable Tone Bauer MD Unavailable Unavailable Tone Bauer MD Unavailable Unavailable Tone Bauer MD Unavailable Unavailable Tone Bauer MD Unavailable Unavailable Tone Bauer MD Unavailable Unavailable Tone Bauer MD Unavailable Unavailable Tiso, Tone Ortiz MD Unavailable Unavailable Tiso, Tone Ortiz MD Unavailable Unavailable Tiso, Tone Ortiz MD Unavailable Unavailable Tiso, Tone Ortiz MD Unavailable Unavailable Tiso, Tone Ortiz MD Unavailable Unavailable Tiso, Tone Ortiz MD Unavailable Unavailable Tiso, Tone Ortiz MD Unavailable Unavailable Tiso, Tone Ortiz MD Unavailable Unavailable Tiso, Tone Ortiz MD Unavailable Unavailable Tiso, Tone Ortiz MD Unavailable Unavailable Tiso, Tone Ortiz MD Unavailable Unavailable Tiso, Tone Ortiz MD Unavailable Unavailable Tiso, Tone Ortiz MD Unavailable Unavailable Tiso, Tone Ortiz MD Unavailable Unavailable Tiso, Tone Ortiz MD Unavailable Unavailable Tiso, Tone Ortiz MD Unavailable Unavailable Tiso, Tone Ortiz MD Unavailable Unavailable Tiso, Tone Ortiz MD Unavailable Unavailable Tiso, Tone Ortiz MD Unavailable Unavailable Tiso, Tone Ortiz MD Unavailable Unavailable Tiso, Tone Ortiz MD Unavailable Unavailable Tiso, Tone Ortiz MD Unavailable Unavailable Tiso, Tone Ortiz MD Unavailable Unavailable Tiso, Tone Ortiz MD Unavailable Unavailable Tiso, Tone Ortiz MD Unavailable Unavailable Tiso, Tone Ortiz MD Unavailable Unavailable Tiso, Tone Ortiz MD Unavailable Unavailable Tiso, Tone Ortiz MD Unavailable Unavailable Tiso, Tone Ortiz MD Unavailable Unavailable Tiso, Tone Ortiz MD Unavailable Unavailable Tiso, Tone Ortiz MD Unavailable Unavailable Tiso, Tone Ortiz MD Unavailable Unavailable Tiso, Tone Ortiz MD Unavailable Unavailable Tiso, Tone Ortiz MD Unavailable Unavailable Tiso, Tone Ortiz MD Unavailable Unavailable Tiso, Tone Ortiz MD Unavailable Unavailable Tiso, Tone Ortiz MD Unavailable Unavailable Tiso, Tone Ortiz MD Unavailable Unavailable Tiso, Tone Ortiz MD Unavailable Unavailable Tiso, Tone Ortiz MD Unavailable Unavailable Tiso, Tone Ortiz MD Unavailable Unavailable Tiso, Tone Ortiz MD Unavailable Unavailable Tiso, Tone Ortiz MD Unavailable Unavailable Tiso, Tone Ortiz MD Unavailable Unavailable Tiso, Tone Ortiz MD Unavailable Unavailable Tiso, Tone Ortiz MD Unavailable Unavailable Tiso, Tone Ortiz MD Unavailable Unavailable Tiso, Tone Ortiz MD Unavailable Unavailable Tiso, Tone Ortiz MD Unavailable Unavailable Tiso, Tone Ortiz MD Unavailable Unavailable VAVALA, A JUDE PA-C Unavailable Unavailable VAVALA, A JUDE PA-C Unavailable Unavailable VAVALA, A JUDE PA-C Unavailable Unavailable VAVALA, A JUDE PA-C Unavailable Unavailable VAVALA, A JUDE PA-C Unavailable Unavailable VAVALA, A JUDE PA-C Unavailable Unavailable VAVALA, A JUDE PA-C Unavailable Unavailable VAVALA, A JUDE PA-C Unavailable Unavailable VAVALA, A JUDE PA-C Unavailable Unavailable VAVALA, A JUDE PA-C Unavailable Unavailable VAVALA, A JUDE PA-C Unavailable Unavailable VAVALA, A JUDE PA-C Unavailable Unavailable VAVALA, A JUDE PA-C Unavailable Unavailable VAVALA, A JUDE PA-C Unavailable Unavailable VAVALA, A JUDE PA-C Unavailable Unavailable VAVALA, A JUDE PA-C Unavailable Unavailable VAVALA, A JUDE PA-C Unavailable Unavailable VAVALA, A JUDE PA-C Unavailable Unavailable VAVALA, A JUDE PA-C Unavailable Unavailable VAVALA, A JUDE PA-C Unavailable Unavailable VAVALA, A JUDE PA-C Unavailable Unavailable VAVALA, A JUDE PA-C Unavailable Unavailable VAVALA, A JUDE PA-C Unavailable Unavailable VAVALA, A JUDE PA-C Unavailable Unavailable VAVALA, A JUDE PA-C Unavailable Unavailable VAVALA, A JUDE PA-C Unavailable Unavailable VAVALA, A JUDE PA-C Unavailable Unavailable VAVALA, A JUDE PA-C Unavailable Unavailable ROGELIO, SHELDON MD Unavailable Unavailable ROGELIO, SHELDON MD Unavailable Unavailable ROGELIO, SHELDON MD Unavailable Unavailable ROGELIO, SHELDON MD Unavailable Unavailable ROGELIO, SHELDON MD Unavailable Unavailable ELVER, E BENJA DO Unavailable Unavailable ELVER, E BENJA DO Unavailable Unavailable ELVER, E BENJA DO Unavailable Unavailable ELVER, E BENJA DO Unavailable Unavailable ELVER, E BENJA DO Unavailable Unavailable ELVER, E BENJA DO Unavailable Unavailable ELVER, E BENJA DO Unavailable Unavailable ELVER, E BENJA DO Unavailable Unavailable ELVER, E BENJA DO Unavailable Unavailable ELVER, E BENJA DO Unavailable Unavailable ELVER, E BENJA DO Unavailable Unavailable ELVER, E BENJA DO Unavailable Unavailable ELVER, E BENJA DO Unavailable Unavailable ELVER, E BENJA DO Unavailable Unavailable ELVER, E BENJA DO Unavailable Unavailable ELVER, E BENJA DO Unavailable Unavailable ELVER, E BENJA DO Unavailable Unavailable ELVER, E BENJA DO Unavailable Unavailable ELVER, E BENJA DO Unavailable Unavailable ELVER, E BENJA DO Unavailable Unavailable ELVER, E BENJA DO Unavailable Unavailable ELVER, E BENJA DO Unavailable Unavailable Profetto, A Braydon MACHINE TRY OUT SETTER Unavailable Unavailable Profetto, A Braydon MACHINE TRY OUT SETTER Unavailable Unavailable Profetto, A Braydon MACHINE TRY OUT SETTER Unavailable Unavailable Profetto, A Braydon MACHINE TRY OUT SETTER Unavailable Unavailable Profetto, A Braydon MACHINE TRY OUT SETTER Unavailable Unavailable Profetto, A Braydon MACHINE TRY OUT SETTER Unavailable Unavailable Profetto, A Braydon MACHINE TRY OUT SETTER Unavailable Unavailable Profetto, A Braydon MACHINE TRY OUT SETTER Unavailable Unavailable Profetto, A Braydon MACHINE TRY OUT SETTER Unavailable Unavailable Profetto, A Braydon MACHINE TRY OUT SETTER Unavailable Unavailable Profetto, A Braydon MACHINE TRY OUT SETTER Unavailable Unavailable Profetto, A Braydon MACHINE TRY OUT SETTER Unavailable Unavailable Profetto, A Braydon MACHINE TRY OUT SETTER Unavailable Unavailable Profetto, A Braydon MACHINE TRY OUT SETTER Unavailable Unavailable Profetto, A Braydon MACHINE TRY OUT SETTER Unavailable Unavailable Profetto, A Braydon MACHINE TRY OUT SETTER Unavailable Unavailable Profetto, A Braydon MACHINE TRY OUT SETTER Unavailable Unavailable Profetto, A Braydon MACHINE TRY OUT SETTER Unavailable Unavailable Profetto, A Braydon MACHINE TRY OUT SETTER Unavailable Unavailable Profetto, A Braydon MACHINE TRY OUT SETTER Unavailable Unavailable Profetto, A Braydon MACHINE TRY OUT SETTER Unavailable Unavailable Profetto, A Braydon MACHINE TRY OUT SETTER Unavailable Unavailable Profetto, A Braydon MACHINE TRY OUT SETTER Unavailable Unavailable Profetto, A Braydon MACHINE TRY OUT SETTER Unavailable Unavailable Profetto, A Braydon MACHINE TRY OUT SETTER Unavailable Unavailable Profetto, A Braydon MACHINE TRY OUT SETTER Unavailable Unavailable Profetto, A Braydon MACHINE TRY OUT SETTER Unavailable Unavailable Profetto, A Braydon MACHINE TRY OUT SETTER Unavailable Unavailable Profetto, A Braydon MACHINE TRY OUT SETTER Unavailable Unavailable Profetto, A Braydon MACHINE TRY OUT SETTER Unavailable Unavailable Profetto, A Braydon MACHINE TRY OUT SETTER Unavailable Unavailable Ryfun, Emilee Marcella MACHINE TRY OUT SETTER-C Unavailable Unavaila ble Ryfun, Emilee Marcella MACHINE TRY OUT SETTER-C Unavailable Unavaila ble Ryfun, Emilee Marcella MACHINE TRY OUT SETTER-C Unavailable Unavaila ble Ryfun, Emilee Marcella MACHINE TRY OUT SETTER-C Unavailable Unavaila ble Ryfun, Emilee Marcella MACHINE TRY OUT SETTER-C Unavailable Unavaila ble Ryfun, Emilee Marcella MACHINE TRY OUT SETTER-C Unavailable Unavaila ble Ryfun, Emilee Marcella MACHINE TRY OUT SETTER-C Unavailable Unavaila ble Ryfun, Emilee Marcella MACHINE TRY OUT SETTER-C Unavailable Unavaila ble Ryfun, Emilee Marcella MACHINE TRY OUT SETTER-C Unavailable Unavaila ble Ryfun, Emilee Marcella MACHINE TRY OUT SETTER-C Unavailable Unavaila ble Ryfun, Emilee Marcella MACHINE TRY OUT SETTER-C Unavailable Unavaila ble Ryfun, Emilee Marcella MACHINE TRY OUT SETTER-C Unavailable Unavaila ble Ryfun, Emilee Marcella MACHINE TRY OUT SETTER-C Unavailable Unavaila ble Ryfun, Emilee Marcella MACHINE TRY OUT SETTER-C Unavailable Unavaila ble Ryfun, Emilee Marcella MACHINE TRY OUT SETTER-C Unavailable Unavaila ble Ryfun, Emilee Marcella MACHINE TRY OUT SETTER-C Unavailable Unavaila ble Ryfun, Emilee Marcella MACHINE TRY OUT SETTER-C Unavailable Unavaila ble Ryfun, Emilee Marcella MACHINE TRY OUT SETTER-C Unavailable Unavaila ble Ryfun, Emilee Marcella MACHINE TRY OUT SETTER-C Unavailable Unavaila ble Ryfun, Emilee Marcella MACHINE TRY OUT SETTER-C Unavailable Unavaila ble Ryfun, Emilee Marcella MACHINE TRY OUT SETTER-C Unavailable Unavaila ble Ryfun, Emilee Marcella MACHINE TRY OUT SETTER-C Unavailable Unavaila ble Ryfun, Emilee Marcella MACHINE TRY OUT SETTER-C Unavailable Unavaila ble Ryfun, Emilee Marcella MACHINE TRY OUT SETTER-C Unavailable Unavaila ble Ryfun, Emilee Marcella MACHINE TRY OUT SETTER-C Unavailable Unavaila ble Ryfun, Emilee Marcella MACHINE TRY OUT SETTER-C Unavailable Unavaila ble Ryfun, Emilee Marcella MACHINE TRY OUT SETTER-C Unavailable Unavaila ble Ryfun, Emilee Macrella MACHINE TRY OUT SETTER-C Unavailable Unavaila ble Ryfun, Emilee Marcella MACHINE TRY OUT SETTER-C Unavailable Unavaila ble Ryfun, Emilee Marcella MACHINE TRY OUT SETTER-C Unavailable Unavaila ble Ryfun, Emilee Marcella MACHINE TRY OUT SETTER-C Unavailable Unavaila ble Ryfun, Emilee Marcella MACHINE TRY OUT SETTER-C Unavailable Unavaila ble Ryfun, Emilee Marcella MACHINE TRY OUT SETTER-C Unavailable Unavaila ble Ryfun, Emilee Marcella MACHINE TRY OUT SETTER-C Unavailable Unavaila ble Ryfun, Emilee Marcella MACHINE TRY OUT SETTER-C Unavailable Unavaila ble Ryfun, Emilee Marcella MACHINE TRY OUT SETTER-C Unavailable Unavaila ble Ryfun, Eimlee Marcella MACHINE TRY OUT SETTER-C Unavailable Unavaila ble Ryfun, Emilee Marcella MACHINE TRY OUT SETTER-C Unavailable Unavaila ble Ryfun, Emilee Marcella MACHINE TRY OUT SETTER-C Unavailable Unavaila ble DOMBROWSKA, K FABIENNE DO Unavailable Unavailable DOMBROWSKA, K FABIENNE DO Unavailable Unavailable DOMBROWSKA, K FABIENNE DO Unavailable Unavailable DOMBROWSKA, K FABIENNE DO Unavailable Unavailable DOMBROWSKA, K FABIENNE DO Unavailable Unavailable DOMBROWSKA, K FABIENNE DO Unavailable Unavailable DOMBROWSKA, K FABIENNE DO Unavailable Unavailable DOMBROWSKA, K FABIENNE DO Unavailable Unavailable DOMBROWSKA, K FABIENNE DO Unavailable Unavailable DOMBROWSKA, K FABIENNE DO Unavailable Unavailable DOMBROWSKA, K FABIENNE DO Unavailable Unavailable DOMBROWSKA, K FABIENNE DO Unavailable Unavailable DOMBROWSKA, K FABIENNE DO Unavailable Unavailable DOMBROWSKA, K FABIENNE DO Unavailable Unavailable DOMBROWSKA, K FABIENNE DO Unavailable Unavailable DOMBROWSKA, K FABIENNE DO Unavailable Unavailable DOMBROWSKA, K FABIENNE DO Unavailable Unavailable DOMBROWSKA, K FABIENNE DO Unavailable Unavailable DOMBROWSKA, K FABIENNE DO Unavailable Unavailable DOMBROWSKA, K FABIENNE DO Unavailable Unavailable DOMBROWSKA, K FABIENNE DO Unavailable Unavailable DOMBROWSKA, K FABIENNE DO Unavailable Unavailable DOMBROWSKA, K FABIENNE DO Unavailable Unavailable LETTIERE, A CANDY PA Unavailable [...] Unavailable LETTIERE, A CANDY PA Unavailable Unavailable Omer FENTON MD Unavailable Unavailable [...] Unavailable Unavailable Omer FENTON MD Unavailable Unavailable Oemr FENTON MD Unavailable Unavailable Omer FENTON MD [...] Unavailable Omer FENTON MD Unavailable Unavailable Omer FETNON MD Unavailable Unavailable Omer FENTON MD Unavailable Unavailable Omer FENTON MD Unavailable Unavailable Omer FENTON MD Unavailable Unavailable Omer FENTON MD Unavailable Unavailable Omer FENTON MD Unavailable Unavailable Omer FENTON MD Unavailable Unavailable Omer FENTON MD Unavailable Unavailable Omer FENTON MD Unavailable Unavailable UNKNOWN Unavailable Unavailable DRAZEK, I ROB PA Unavailable Unavailable DRAZEK, I ROB PA Unavailable Unavailable DRAZEK, I ROB PA Unavailable Unavailable DRAZEK, I ROB PA Unavailable Unavailable DRAZEK, I ROB PA Unavailable Unavailable DRAZEK, I ROB PA Unavailable Unavailable DRAZEK, I ROB PA Unavailable Unavailable DRAZEK, I ROB PA Unavailable Unavailable DRAZEK, I ROB PA Unavailable Unavailable DRAZEK, I ROB PA Unavailable Unavailable DRAZEK, I ROB PA Unavailable Unavailable DRAZEK, I ROB PA Unavailable Unavailable DRAZEK, I ROB PA Unavailable Unavailable DRAZEK, I ROB PA Unavailable Unavailable DRAZEK, I ROB PA Unavailable Unavailable DRAZEK, I ROB PA Unavailable Unavailable DRAZEK, I ROB PA Unavailable Unavailable DRAZEK, I ROB PA Unavailable Unavailable DRAZEK, I ROB PA Unavailable Unavailable DRAZEK, I ROB PA Unavailable Unavailable DRAZEK, I ROB PA Unavailable Unavailable DRAZEK, I ROB PA Unavailable Unavailable DRAZEK, I ROB PA Unavailable Unavailable DRAZEK, I ROB PA Unavailable Unavailable DRAZEK, I ROB PA Unavailable Unavailable DRAZEK, I ROB PA Unavailable Unavailable DRAZEK, I ROB PA Unavailable Unavailable DRAZEK, I ROB PA Unavailable Unavailable DRAZEK, I ROB PA Unavailable Unavailable DRAZEK, I ROB PA Unavailable Unavailable Sadie ARNDT M.D. Unavailable Unavailable CLAIRE, A SAIMA DO Unavailable Unavailable CLAIRE, A SAIMA DO Unavailable Unavailable CLAIRE, A SAIMA DO Unavailable Unavailable CLAIRE, A SAIMA DO Unavailable Unavailable CLAIRE, A SAIMA DO Unavailable Unavailable CLAIRE, A SAIMA DO Unavailable Unavailable CLAIRE, A SAIMA DO Unavailable Unavailable CLAIRE, A SAIMA DO Unavailable Unavailable CLAIRE, A SAIMA DO Unavailable Unavailable CLAIRE, A SAIMA DO Unavailable Unavailable CLAIRE, A SAIMA DO Unavailable Unavailable CLAIRE, A SAIMA DO Unavailable Unavailable CLAIRE, A SAIMA DO Unavailable Unavailable CLAIRE, A SAIMA DO Unavailable Unavailable CLAIRE, A SAIMA DO Unavailable Unavailable CLAIRE, A SAIMA DO Unavailable Unavailable CLAIRE, A SAIMA DO Unavailable Unavailable CLAIRE, A SAIMA DO Unavailable Unavailable CLAIRE, A SAIMA DO Unavailable Unavailable CLAIRE, A SAIMA DO Unavailable Unavailable CLAIRE, A SAIMA DO Unavailable Unavailable CLAIRE, A SAIMA DO Unavailable Unavailable CLAIRE, A SAIMA DO Unavailable Unavailable Re-disclosure Warning The records that [...] is protected by Article 27-F of the [facility] Public Health law. If you continue you may have access to information: Regarding HIV / AIDS; Provided by facilities licensed or operated by the [facility] Office of Mental Health; or Provided by the [facility] Office for People With Developmental Disabilities. If such information is present, then the following [facility] mandated warning applies: This information has [...] law may result in a fine or intermediate sentence or both. A general authorization for the release of medical or other information is NOT sufficient authorization for further disc losure. Allergies and Adverse Reactions Type Description Substance Reaction Status Data Source(s ) Drug allergy Depakote Depakote Active BECKA (Da vid A Peggy Borrego MD [facility]) Drug allergy Amitriptyline HCl Powder Amitriptyline HCl Ac tive BECKA (Travon Borrego MD [facility]) Drug allergy Lidoderm Lidocaine Active BECKA (Da vid A Peggy Borrego MD [facility]) Drug allergy Lyrica Lyrica Active BECKA (Da vid A Peggy Borrego MD [facility]) Drug allergy Riboflavin 100 MG Oral Capsule Riboflavin Act alonso BECKA (Travon Borrego MD [facility]) Allergy to substance Active MRI Contrast Active GR EENWAY (Travon Borrego MD [facility]) Drug allergy Magnesium Oral Tablet Magnesium Active G REENWAY (Travon Borrego MD [facility]) Drug allergy Neurontin Neurontin Active BECKA (Da vid A Woods Borrego MD [facility]) Drug allergy amoxicillin Amoxicillin Active BECKA ( Travon Borrego MD [facility]) Drug allergy Sulfa Antibiotics Sulfa Antibiotics Active BECKA (Travon Borrego MD [facility]) Drug allergy pregabalin [facility] Drug allergy propranolol propranolol [facility] Drug allergy amitriptyline amitriptyline [facility] Drug allergy magnesium magnesium [facility] Drug allergy gabapentin gabapentin [facility] Drug allergy valproic acid valproic acid [facility] Drug allergy lidocaine lidocaine [facility] Drug allergy iodine iodine [facility] Drug allergy zinc zinc [facility] Drug allergy Gadolinium-Containing Contrast Medi Gado linium-Containing Contrast Medi [facility] Drug allergy Penicillins Penicillins [facility] Drug allergy Tricyclic Compounds Tricyclic Compounds [facility] Drug allergy SULFA SULFA [facility] Family History Family Member Name Family Member Gender Family Member Status Date o f Status Description Data Source(s) Unknown Male Problem MEDENT ([facility] ) Unknown Male Problem MEDENT ([facility] Unknown Unknown Problem [facility] ([facility]) Mother; Sister Unknown Unknown Problem MEDENT ([facility]) Unknown Unknown Problem MEDENT ([facility]) Unknown Unknown Problem MEDENT ([facility]) Unknown Unknown Problem MEDENT ([facility]) Unknown Unknown Problem MEDENT ([facility]) Unknown Unknown Problem [facility] ([facility]) Unknown Unknown Problem [facility] ([facility]) Unknown Unknown Problem [facility] ([facility]) Unknown Unknown Problem [facility] ([facility]) Unknown Unknown Problem MEDENT ([facility]) Unknown Unknown Problem MEDENT ([facility]) Unknown Unknown Problem MEDENT ([facility]) Unknown Unknown Problem MEDENT ([facility]) Unknown Unknown Problem MEDENT ([facility]) Unknown Unknown Problem MEDENT ([facility]) Unknown Unknown Problem MEDENT ([facility]) Unknown Unknown Problem MEDENT ([facility], ) Unknown Unknown Problem MEDENT ([facility], ) Encounters Encounter Providers Location Date Indications Data Source(s ) [place] [address] [facility] [address] 08/27/2021 12:00:00 AM EST eCW1 ([facility]) [place] [address] [facility] [address] 08/24/2021 12:00:00 AM EST eCW1 ([facility]) [place] [address] [facility] [address] 08/24/2021 12:00:00 AM EST eCW1 ([facility]) Outpatient Attender: FABIENNE MOLINA DO 021 08:28:00 AM EST 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, S/P CHEMO [facility] 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, S/P CHEMO Unknown [address] [facility] [address] 08/23/2021 12:00:00 AM EST eCW1 ([facility]) [place] [address] [facility] [address] 08/23/2021 12:00:00 AM EST eCW1 ([facility]) [place] [address] [facility] [address] 08/16/2021 12:00:00 AM EST eCW1 ([facility]) [place] [address] [facility] [address] 07/22/2021 12:00:00 AM EDT eCW1 ([facility]) [place] [address] [facility] [address] 07/08/2021 12:00:00 AM EDT eCW1 ([facility]) [place] [address] [facility] [address] 07/06/2021 12:00:00 AM EDT eCW1 ([facility]) [place] [address] [facility] [address] 07/06/2021 12:00:00 AM EDT eCW1 ([facility]) Unknown [address] [facility] [place] [address] 07/05/2021 12:00:00 AM EDT eCW1 ([facility]) Outpatient Attender: JUDE Samsonferrer: Annabella FLORES 06/10/2021 04:21:26 PM EDT [facility] Outpatient [address] [facility] [address] 06/04/2021 12:00:00 AM EDT eCW1 ([facility]) ([facility]) [facility] Scheduled Visit [address] [place] [address] 06/01/2021 12:00:00 AM EDT eCW1 ([facility]) Outpatient [address] [facility] [place] [address] 05/21/2021 12:00:00 AM EDT eCW1 ([facility]) Unknown [address] [facility] [id number] 05/20/2021 12:00:00 AM EDT eCW1 ([facility]) ([facility]) [facility] Scheduled Visit [address] [place] [phone] 05/17/2021 12:00:00 AM EDT eCW1 ([facility]) ([facility]) [facility] Scheduled Visit [address] [place] [phone] 05/06/2021 12:00:00 AM EDT eCW1 ([facility]) Office Visit Attender: ROB VERA Physical Therapy 2020 04:00:00 PM EDT MEDENT ([facility]) ([facility]) [facility] Scheduled Visit [address] [place] [phone] 04/15/2021 12:00:00 AM EDT eCW1 ([facility]) Outpatient Attender: BENJA Santiago/Anderson/Jd/Lawson l 04/07/2021 10:00:00 AM EDT MEDENT ([facility]) Unknown [address] [facility] [place] [address] 04/07/2021 12:00:00 AM EDT eCW1 ([facility]) Outpatient Attender: Angel Mcclellanerrbouchra: SHANNAN Smith 04/02/2021 01:48:16 PM EDT [facility] ([facility]) [facility] Scheduled Visit [address] [place] [address] 03/30/2021 12:00:00 AM EDT eCW1 ([facility]) Unknown [address] [facility], [facility] [address] 03/30/2021 12:00:00 AM EDT eCW1 ([facility]) Outpatient [address] [facility] [id number] 03/29/2021 12:00:00 AM EDT eCW1 ([facility]) Outpatient Admitter: FABIENNE Calabreseer: SYMONE MOLINA DO 03/26/2021 12:00:00 AM EDT Malignant neoplasm of unspecified site o f unspecified female breast [facility] Malignant neoplasm of unspecified site o f unspecified female breast OFFICE OUTPATIENT VISIT 15 MINUTES Attender: ROB VERA Phys ical Therapy 03/24/2021 04:00:00 PM EDT MEDENT ([facility]) Outpatient [address] [facility] [id number] 03/24/2021 12:00:00 AM EDT eCW1 ([facility]) Unknown [address] [facility] [id number] 03/24/2021 12:00:00 AM EDT eCW1 ([facility]) Outpatient [address] [facility] [id number] 03/15/2021 12:00:00 AM EDT eCW1 ([facility]) ([facility]) [facility] Scheduled Visit [address] [place] [address] 03/15/2021 12:00:00 AM EDT eCW1 ([facility]) Unknown [address] [facility] [place] [address] 03/11/2021 12:00:00 AM EDT eCW1 ([facility]) ([facility]) [facility] Biopsy [address] [place] [address] 03/10/2021 12:00:00 AM EDT eCW1 ([facility]) Outpatient [address] [facility] [place] [address] 03/03/2021 12:00:00 AM EDT eCW1 ([facility]) Unknown [address] [facility] [place] [address] 02/24/2021 12:00:00 AM EDT eCW1 ([facility]) OFFICE OUTPATIENT VISIT 15 MINUTES Attender: ROB VERA Phys ical Therapy 02/23/2021 03:30:00 PM EDT MEDENT ([facility]) Outpatient [address] [facility] [place] [address] 02/18/2021 12:00:00 AM EDT eCW1 ([facility]) Unknown [address] [facility] [place] [address] 02/10/2021 12:00:00 AM EDT eCW1 ([facility]) OFFICE OUTPATIENT VISIT 15 MINUTES Attender: ROB VERA Phys ical Therapy 02/03/2021 06:00:00 PM EDT MEDENT ([facility]) Unknown [address] [facility] [place] [address] 01/29/2021 12:00:00 AM EDT eCW1 ([facility]) ([facility]) [facility] Scheduled Visit [address] [place] [address] 01/21/2021 12:00:00 AM EDT eCW1 ([facility]) Outpatient Attender: ROB VERA Physical Therapy 01/19/2021 0 1:00:00 PM EDT MEDENT ([facility]) Outpatient [address] [facility] [id number] 01/19/2021 12:00:00 AM EDT eCW1 ([facility]) Outpatient Attender: ROB VERA Physical Therapy 01/14/2021 0 5:30:00 PM EDT MEDENT ([facility]) Outpatient Attender: Denise Sharpe FNPReferrer: SHANNAN Rodriguez MD 01/11/2021 07:49:55 PM EDT [facility] Unknown [address] [facility] [id number] 01/11/2021 12:00:00 AM EDT eCW1 ([facility]) Unknown [address] [facility] [id number] 01/04/2021 12:00:00 AM EDT eCW1 ([facility]) ([facility]) [facility] Scheduled Visit [address] [place] [address] 12/31/2020 12:00:00 AM EDT eCW1 ([facility]) ([facility]) [facility] Scheduled Visit [address] [place] [address] 12/24/2020 12:00:00 AM EDT eCW1 ([facility]) ([facility]) [facility] Scheduled Visit [address] [place] [address] 12/03/2020 12:00:00 AM EST eCW1 ([facility]) Unknown [address] [facility] [id number] 12/02/2020 12:00:00 AM EST eCW1 ([facility]) Outpatient<td ID="encounterTypeDescripti onID0">TRIAGE NEW PATIENT</td><td>Saima Rubio DO</td><td>Travon Ewing MD [facility]</td><td>11/27/2020</td><td>7:22AM</td><td>8:36AM</td><td><content ID="encounterDiagnosisID0-0">Taking Medication For Diabetes Long-term Use of Oral Hypoglycemics</content>, <content ID="encounterDiagnosisID0-1">Dry Eye Syndrome Both Eyes</content>, <content ID="encounterDiagnosisID0-2">Vitreous Disorders Degeneration</content>, <content ID="encounterDiagnosisID0-3">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</content>, <content ID="encounterDiagnosisID0-4">Glaucoma Open-angle Primary</content></td> Attender: SAIMA Rahman MD [facility] 11/27/2020 07:22:00 AM EST - 11/27/2020 08:36:00 AM EST Glaucoma Open-angle PrimaryType 2 Diabet es with Diabetic Retinopathy Moderate NonproliferativeVitreous Disorders DegenerationDry Eye Syndrome Both EyesTaking Medication For Diabetes Long-term Use of Oral Hypoglycemics BECKA (Travon Borrego MD [facility]) Glaucoma Open-angle Primary Type 2 Diabetes with Diabetic Retinopath y Moderate Nonproliferative Vitreous Disorders Degeneration Dry Eye Syndrome Both Eyes Taking Medication For Diabetes Long-term Use of Oral Hypoglycemics Unknown [address] [facility] [address] 11/25/2020 12:00:00 AM EST eCW1 ([facility]) Unknown [address] [facility] [address] 11/25/2020 12:00:00 AM EST eCW1 ([facility]) Recurring Patient Attender: Braydon Avitia FNPReferrer: Franco FLORES 11/24/2020 08:59:[address] [facility] Unknown [address] [facility] [address] 11/20/2020 12:00:00 AM EST eCW1 ([facility]) Unknown [address] [facility] [address] 11/20/2020 12:00:00 AM EST eCW1 ([facility]) Outpatient [address] [facility] [place] [address] 11/19/2020 12:00:00 AM EST eCW1 ([facility]) ([facility]) [facility] Scheduled Visit [address] [place] [address] 11/19/2020 12:00:00 AM EST eCW1 ([facility]) Unknown [address] [facility] [place] [address] 11/19/2020 12:00:00 AM EST eCW1 ([facility]) ([facility]) [facility] Scheduled Visit [address] [place] [address] 11/12/2020 12:00:00 AM EST eCW1 ([facility]) Outpatient Attender: Denise Sharpe FNPReferrer: SHANNAN Rodriguez MD 11/10/2020 09:34:36 AM EST [facility] Unknown [address] [facility], [facility] [address] 11/08/2020 12:00:00 AM EST eCW1 ([facility]) Unknown [address] [facility] [place] [address] 11/06/2020 12:00:00 AM EST eCW1 ([facility]) Inpatient Attender: SHELDON MERCADO MDAtten deanna: OPAL ARNDT M.D.Admitter: SHELDON MERCADO MD [facility] 10/30/2020 01:27:00 PM EST - 11/05/2020 12:01:00 PM EST [facility] Patient discharged. Outpatient [address] [facility] [address] 10/29/2020 12:00:00 AM EST eCW1 ([facility]) Outpatient Attender: UNKNOWN CPSCAORT-LABEJN 10/26/2020 02:49:00 PM E [facility] Outpatient Attender: SHANNAN FENTON MD -[facility] 2020 12:39:00 PM EST - 10/26/2020 12:40:00 PM EST [address] Patient discharged. ([facility]) [facility] Scheduled Visit [address] [place] [address] 10/22/2020 12:00:00 AM EST eCW1 ([facility]) TeleMedicine Phone E/M by Keagan 5-[address] [place] [phone] 10/21/2020 12:00:00 AM EST eCW1 ([facility]) Outpatient Attender: CANDY maguire 10/19/2020 04:15:00 PM EST MEDENT ([facility]) Outpatient [address] [facility] [id number] 10/19/2020 12:00:00 AM EST eCW1 ([facility]) Outpatient [address] [facility] [address] 10/16/2020 12:00:00 AM EST eCW1 ([facility]) Unknown [address] [facility] [address] 10/16/2020 12:00:00 AM EST eCW1 ([facility]) Unknown [address] [facility] [id number] 10/08/2020 12:00:00 AM EST eCW1 ([facility]) Unknown [address] [facility] [address] 10/07/2020 12:00:00 AM EST eCW1 ([facility]) Unknown [address] [facility] [id number] 09/29/2020 12:00:00 AM EST eCW1 ([facility]) ([facility]) [facility] Scheduled Visit [address] [place] [phone] 09/29/2020 12:00:00 AM EST eCW1 ([facility]) ([facility]) [facility] Scheduled Visit [address] [place] [address] 09/17/2020 12:00:00 AM EST eCW1 ([facility]) ([facility]) [facility] Scheduled Visit [address] [place] [address] 09/10/2020 12:00:00 AM EST eCW1 ([facility]) Outpatient Attender: Denise Sharpe FNPReferrer: SHANNAN Rodriguez MD 09/07/2020 03:53:16 PM EST [facility] Outpatient Attender: Marcella Botello 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 SETTER-C [id number] 11/07/2019 12:00:00 AM EST [facility] Outpatient [address] [facility], [facility] [address] 08/27/2020 12:00:00 AM EST eCW1 ([facility]) ([facility]) [facility] Scheduled Visit [address] [place] [address] 08/27/2020 12:00:00 AM EST eCW1 ([facility]) Outpatient [address] [facility] [id number] 08/17/2020 12:00:00 AM EST eCW1 ([facility]) Unknown [address] [facility] [place] [address] 08/11/2020 12:00:00 AM EST eCW1 ([facility]) Outpatient Attender: Denise Sharpe FNPReferrer: SHANNAN Rodriguez MD 08/07/2020 03:03:36 PM EDT [facility] [place] Unknown [address] [facility] [id number] 08/05/2020 12:00:00 AM EDT eCW1 ([facility]) Outpatient Attender: Denise Sharpe FNPReferrer: SHANNAN Rodriguez MD 07/07/2020 09:45:04 AM EDT [facility] Recurring Patient Attender: Braydon Avitia FNPReferrer: Franco FLORES 07/07/2020 08:35:[address] [facility] Recurring Patient Attender: Braydon Avitia FNPReferrer: Franco FLORES 07/07/2020 08:35:36 AM EDT [facility] Recurring Patient Attender: Braydon Aguillonjeanne FNPReferrer: Franco FLORES 07/06/2020 04:18:33 PM EDT [facility] Immunizations Vaccine Date Status Description Data Source(s) COVID-19 VACCINE Moderna 01/01/2021 12:00:00 AM EDT completed [facility] Vaccine Series Complete: YESThis Data wa s Submitted to [facility] [employer]. COVID-19 VACCINE Moderna 12/04/2020 12:00:00 AM EST completed [facility] Vaccine Series Complete: NOThis Data was Submitted to [facility] [employer]. influenza, recombinant, quadrIvalent,injectable, prese rvative free 07/02/2020 11:50:00 AM EDT completed eCW1 ([facility]) influenza, recombinant, quadrIvalent,injectable, prese rvative free 07/02/2020 11:50:00 AM EDT completed eCW1 ([facility]) influenza, recombinant, quadrIvalent,injectable, prese rvative free 07/02/2020 11:50:00 AM EDT completed eCW1 ([facility]) influenza, recombinant, quadrIvalent,injectable, prese rvative free 07/02/2020 11:50:00 AM EDT completed eCW1 ([facility]) influenza, recombinant, quadrIvalent,injectable, prese rvative free 07/02/2020 11:50:00 AM EDT completed eCW1 ([facility]) influenza, recombinant, quadrIvalent,injectable, prese rvative free 07/02/2020 11:50:00 AM EDT completed eCW1 ([facility]) influenza, recombinant, quadrIvalent,injectable, prese rvative free 07/02/2020 11:50:00 AM EDT completed eCW1 ([facility]) influenza, recombinant, quadrIvalent,injectable, prese rvative free 07/02/2020 11:50:00 AM EDT completed eCW1 ([facility]) influenza, recombinant, quadrIvalent,injectable, prese rvative free 07/02/2020 11:50:00 AM EDT completed eCW1 ([facility]) influenza, recombinant, quadrIvalent,injectable, prese rvative free 07/02/2020 11:50:00 AM EDT completed eCW1 ([facility]) influenza, recombinant, quadrIvalent,injectable, prese rvative free 07/02/2020 11:50:00 AM EDT completed eCW1 ([facility]) influenza, recombinant, quadrIvalent,injectable, prese rvative free 07/02/2020 11:50:00 AM EDT completed eCW1 ([facility]) influenza, recombinant, quadrIvalent,injectable, prese rvative free 07/02/2020 11:50:00 AM EDT completed eCW1 ([facility]) influenza, recombinant, quadrIvalent,injectable, prese rvative free 07/02/2020 11:50:00 AM EDT completed eCW1 ([facility]) influenza, recombinant, quadrIvalent,injectable, prese rvative free 07/02/2020 11:50:00 AM EDT completed eCW1 ([facility]) influenza, recombinant, quadrIvalent,injectable, prese rvative free 07/02/2020 11:50:00 AM EDT completed eCW1 ([facility]) influenza, recombinant, quadrIvalent,injectable, prese rvative free 07/02/2020 11:50:00 AM EDT completed eCW1 ([facility]) influenza, recombinant, quadrIvalent,injectable, prese rvative free 07/02/2020 11:50:00 AM EDT completed eCW1 ([facility]) influenza, recombinant, quadrIvalent,injectable, prese rvative free 07/02/2020 11:50:00 AM EDT completed eCW1 ([facility]) influenza, recombinant, quadrIvalent,injectable, prese rvative free 07/02/2020 11:50:00 AM EDT completed eCW1 ([facility]) influenza, recombinant, quadrIvalent,injectable, prese rvative free 07/02/2020 11:50:00 AM EDT completed eCW1 ([facility]) influenza, recombinant, quadrIvalent,injectable, prese rvative free 07/02/2020 11:50:00 AM EDT completed eCW1 ([facility]) influenza, recombinant, quadrIvalent,injectable, prese rvative free 07/02/2020 11:50:00 AM EDT completed eCW1 ([facility]) influenza, recombinant, quadrIvalent,injectable, prese rvative free 07/02/2020 11:50:00 AM EDT completed eCW1 ([facility]) influenza, recombinant, quadrIvalent,injectable, prese rvative free 07/02/2020 11:50:00 AM EDT completed eCW1 ([facility]) influenza, recombinant, quadrIvalent,injectable, prese rvative free 07/02/2020 11:50:00 AM EDT completed eCW1 ([facility]) influenza, recombinant, quadrIvalent,injectable, prese rvative free 07/02/2020 11:50:00 AM EDT completed eCW1 ([facility]) influenza, recombinant, quadrIvalent,injectable, prese rvative free 07/02/2020 11:50:00 AM EDT completed eCW1 ([facility]) influenza, recombinant, quadrIvalent,injectable, prese rvative free 07/02/2020 11:50:00 AM EDT completed eCW1 ([facility]) influenza, recombinant, quadrIvalent,injectable, prese rvative free 07/02/2020 11:50:00 AM EDT completed eCW1 ([facility]) influenza, recombinant, quadrIvalent,injectable, prese rvative free 07/02/2020 11:50:00 AM EDT completed eCW1 ([facility]) influenza, recombinant, quadrIvalent,injectable, prese rvative free 07/02/2020 11:50:00 AM EDT completed eCW1 ([facility]) influenza, recombinant, quadrIvalent,injectable, prese rvative free 07/02/2020 11:50:00 AM EDT completed eCW1 ([facility]) influenza, recombinant, quadrIvalent,injectable, prese rvative free 07/02/2020 11:50:00 AM EDT completed eCW1 ([facility]) influenza, recombinant, quadrIvalent,injectable, prese rvative free 07/02/2020 11:50:00 AM EDT completed eCW1 ([facility]) influenza, recombinant, quadrIvalent,injectable, prese rvative free 07/02/2020 11:50:00 AM EDT completed eCW1 ([facility]) influenza, recombinant, quadrIvalent,injectable, prese rvative free 07/02/2020 11:50:00 AM EDT completed eCW1 ([facility]) influenza, recombinant, quadrIvalent,injectable, prese rvative free 07/02/2020 11:50:00 AM EDT completed eCW1 ([facility]) influenza, recombinant, quadrIvalent,injectable, prese rvative free 07/02/2020 11:50:00 AM EDT completed eCW1 ([facility]) influenza, recombinant, quadrIvalent,injectable, prese rvative free 07/02/2020 11:50:00 AM EDT completed eCW1 ([facility]) influenza, recombinant, quadrIvalent,injectable, prese rvative free 07/02/2020 11:50:00 AM EDT completed eCW1 ([facility]) influenza, recombinant, quadrIvalent,injectable, prese rvative free 07/02/2020 11:50:00 AM EDT completed eCW1 ([facility]) influenza, recombinant, quadrIvalent,injectable, prese rvative free 07/02/2020 11:50:00 AM EDT completed eCW1 ([facility]) influenza, recombinant, quadrIvalent,injectable, prese rvative free 07/02/2020 11:50:00 AM EDT completed eCW1 ([facility]) influenza, recombinant, quadrIvalent,injectable, prese rvative free 07/02/2020 11:50:00 AM EDT completed eCW1 ([facility]) influenza, recombinant, quadrIvalent,injectable, prese rvative free 07/02/2020 11:50:00 AM EDT completed eCW1 ([facility]) influenza, recombinant, quadrIvalent,injectable, prese rvative free 07/02/2020 11:50:00 AM EDT completed eCW1 ([facility]) influenza, recombinant, quadrIvalent,injectable, prese rvative free 07/02/2020 11:50:00 AM EDT completed eCW1 ([facility]) influenza, recombinant, quadrIvalent,injectable, prese rvative free 07/02/2020 11:50:00 AM EDT completed eCW1 ([facility]) influenza, recombinant, quadrIvalent,injectable, prese rvative free 07/02/2020 11:50:00 AM EDT completed eCW1 ([facility]) influenza, recombinant, quadrIvalent,injectable, prese rvative free 07/02/2020 11:50:00 AM EDT completed eCW1 ([facility]) influenza, recombinant, quadrIvalent,injectable, prese rvative free 07/02/2020 11:50:00 AM EDT completed eCW1 ([facility]) influenza, recombinant, quadrIvalent,injectable, prese rvative free 07/02/2020 11:50:00 AM EDT completed eCW1 ([facility]) influenza, recombinant, quadrIvalent,injectable, prese rvative free 07/02/2020 11:50:00 AM EDT completed eCW1 ([facility]) influenza, recombinant, quadrIvalent,injectable, prese rvative free 07/02/2020 11:50:00 AM EDT completed eCW1 ([facility]) influenza, recombinant, quadrIvalent,injectable, prese rvative free 07/02/2020 11:50:00 AM EDT completed eCW1 ([facility]) influenza, recombinant, quadrIvalent,injectable, prese rvative free 07/02/2020 11:50:00 AM EDT completed eCW1 ([facility]) influenza, recombinant, quadrIvalent,injectable, prese rvative free 07/02/2020 11:50:00 AM EDT completed eCW1 ([facility]) influenza, recombinant, quadrIvalent,injectable, prese rvative free 07/02/2020 11:50:00 AM EDT completed eCW1 ([facility]) influenza, recombinant, quadrIvalent,injectable, prese rvative free 07/02/2020 11:50:00 AM EDT completed eCW1 ([facility]) influenza, recombinant, quadrIvalent,injectable, prese rvative free 07/02/2020 11:50:00 AM EDT completed eCW1 ([facility]) influenza, recombinant, quadrIvalent,injectable, prese rvative free 07/02/2020 11:50:00 AM EDT completed eCW1 ([facility]) influenza, recombinant, quadrIvalent,injectable, prese rvative free 07/02/2020 11:50:00 AM EDT completed eCW1 ([facility]) influenza, recombinant, quadrIvalent,injectable, prese rvative free 07/02/2020 11:50:00 AM EDT completed eCW1 ([facility]) influenza, recombinant, quadrIvalent,injectable, prese rvative free 07/02/2020 11:50:00 AM EDT completed eCW1 ([facility]) influenza, recombinant, quadrIvalent,injectable, prese rvative free 07/02/2020 11:50:00 AM EDT completed eCW1 ([facility]) influenza, recombinant, quadrIvalent,injectable, prese rvative free 07/02/2020 11:50:00 AM EDT completed eCW1 ([facility]) influenza, recombinant, quadrIvalent,injectable, prese rvative free 07/02/2020 11:50:00 AM EDT completed eCW1 ([facility]) Medications Medication Brand Name Start Date Product Form Dose Route Admi nistrative Instructions Pharmacy Instructions Status Indications Reaction Description Data Source(s) 500 mg 08/21/2021 12:00:00 AM EST tablet 60 TAKE ONE TABLET BY MOUTH TWICE A DAY TAKE ONE TABLET BY MOUTH TWICE A DAY SOLD: 08/23/2021 [facility] 20 mg 07/22/2021 12:00:00 AM EDT tablet 90 TAKE ONE TABLET BY MOUTH EVERY DAY TAKE ONE TABLET BY MOUTH EVERY DAY SOLD: 07/22/2021 [facility] 50 mg 07/22/2021 12:00:00 AM EDT tablet 90 TAKE ONE TABLET BY MOUTH EVERY DAY TAKE ONE TABLET BY MOUTH EVERY DAY SOLD: 07/22/2021 [facility] 1,000 mg 07/22/2021 12:00:00 AM EDT tablet 180 TAKE ONE TABLET BY MOUTH TWICE A DAY WITH MEALS TAKE ONE TABLET BY MOUTH TWICE A DAY WITH MEALS SOLD: 07/22/2021 [facility] Doxycycline Monohydrate 100 MG Oral Capsule Doxycycline Love hydrate 100 MG 07/06/2021 12:00:00 AM EDT 1.0 {capsule} active Doxycycline Monohydrate 100 MG eCW1 ([facility]) Doxycycline Monohydrate 100 MG Oral Capsule Doxycycline Love hydrate 100 MG 07/06/2021 12:00:00 AM EDT 1.0 {capsule} active Doxycycline Monohydrate 100 MG eCW1 ([facility]) Doxycycline Monohydrate 100 MG Oral Capsule Doxycycline Love hydrate 100 MG 07/06/2021 12:00:00 AM EDT 1.0 {capsule} active Doxycycline Monohydrate 100 MG eCW1 ([facility]) Doxycycline Monohydrate 100 MG Oral Capsule Doxycycline Love hydrate 100 MG 07/06/2021 12:00:00 AM EDT 1.0 {capsule} active Doxycycline Monohydrate 100 MG eCW1 ([facility]) Doxycycline Monohydrate 100 MG Oral Capsule Doxycycline Love hydrate 100 MG 07/06/2021 12:00:00 AM EDT 1.0 {capsule} active Doxycycline Monohydrate 100 MG eCW1 ([facility]) Doxycycline Monohydrate 100 MG Oral Capsule Doxycycline Love hydrate 100 MG 07/06/2021 12:00:00 AM EDT 1.0 {capsule} active Doxycycline Monohydrate 100 MG eCW1 ([facility]) Doxycycline Monohydrate 100 MG Oral Capsule Doxycycline Love hydrate 100 MG 07/06/2021 12:00:00 AM EDT 1.0 {capsule} suspend ed Doxycycline Monohydrate 100 MG eCW1 ([facility]) 100 mg 07/06/2021 12:00:00 AM EDT capsule 20 TAKE ONE CAPSULE BY MOUTH EVERY 12 HOURS FOR 10 DAYS TAKE ONE CAPSULE BY MOUTH EVERY 12 HOURS FOR 10 DAYS S OLD: 07/06/2021 [facility] Doxycycline Monohydrate 100 MG Oral Capsule Doxycycline Love hydrate 100 MG 07/06/2021 12:00:00 AM EDT 1.0 {capsule} suspend ed Doxycycline Monohydrate 100 MG eCW1 ([facility]) Doxycycline Monohydrate 100 MG Oral Capsule Doxycycline Love hydrate 100 MG 07/06/2021 12:00:00 AM EDT 1.0 {capsule} suspend ed Doxycycline Monohydrate 100 MG eCW1 ([facility]) Doxycycline Monohydrate 100 MG Oral Capsule Doxycycline Love hydrate 100 MG 07/06/2021 12:00:00 AM EDT 1.0 {capsule} active Doxycycline Monohydrate 100 MG eCW1 ([facility]) Doxycycline Monohydrate 100 MG Oral Capsule Doxycycline Love hydrate 100 MG 07/06/2021 12:00:00 AM EDT 1.0 {capsule} suspend ed Doxycycline Monohydrate 100 MG eCW1 ([facility]) doxycycline hyclate 100 MG Oral Capsule Doxycycline Hy clate 100 MG Doxycycline Hyclate 100 MG 06/04/2021 12:00:00 AM EDT 1.0 {capsule} suspended Doxycycline Hyclate 100 MG eCW1 ([facility]) doxycycline hyclate 100 MG Oral Capsule Doxycycline Hy clate 100 MG Doxycycline Hyclate 100 MG 06/04/2021 12:00:00 AM EDT 1.0 {capsule} suspended Doxycycline Hyclate 100 MG eCW1 ([facility]) doxycycline hyclate 100 MG Oral Capsule Doxycycline Hy clate 100 MG Doxycycline Hyclate 100 MG 06/04/2021 12:00:00 AM EDT 1.0 {capsule} suspended Doxycycline Hyclate 100 MG eCW1 ([facility]) doxycycline hyclate 100 MG Oral Capsule Doxycycline Hy clate 100 MG Doxycycline Hyclate 100 MG 06/04/2021 12:00:00 AM EDT 1.0 {capsule} suspended Doxycycline Hyclate 100 MG eCW1 ([facility]) doxycycline hyclate 100 MG Oral Capsule Doxycycline Hy clate 100 MG Doxycycline Hyclate 100 MG 06/04/2021 12:00:00 AM EDT 1.0 {capsule} suspended Doxycycline Hyclate 100 MG eCW1 ([facility]) doxycycline hyclate 100 MG Oral Capsule Doxycycline Hy clate 100 MG Doxycycline Hyclate 100 MG 06/04/2021 12:00:00 AM EDT 1.0 {capsule} suspended Doxycycline Hyclate 100 MG eCW1 ([facility]) doxycycline hyclate 100 MG Oral Capsule Doxycycline Hy clate 100 MG Doxycycline Hyclate 100 MG 06/04/2021 12:00:00 AM EDT 1.0 {capsule} suspended Doxycycline Hyclate 100 MG eCW1 ([facility]) doxycycline hyclate 100 MG Oral Capsule Doxycycline Hy clate 100 MG Doxycycline Hyclate 100 MG 06/04/2021 12:00:00 AM EDT 1.0 {capsule} suspended Doxycycline Hyclate 100 MG eCW1 ([facility]) doxycycline hyclate 100 MG Oral Capsule Doxycycline Hy clate 100 MG Doxycycline Hyclate 100 MG 06/04/2021 12:00:00 AM EDT 1.0 {capsule} active Doxycycline Hyclate 100 MG eCW1 ([facility]) doxycycline hyclate 100 MG Oral Capsule Doxycycline Hy clate 100 MG Doxycycline Hyclate 100 MG 06/04/2021 12:00:00 AM EDT 1.0 {capsule} suspended Doxycycline Hyclate 100 MG eCW1 ([facility]) doxycycline hyclate 100 MG Oral Capsule Doxycycline Hy clate 100 MG Doxycycline Hyclate 100 MG 06/04/2021 12:00:00 AM EDT 1.0 {capsule} suspended Doxycycline Hyclate 100 MG eCW1 ([facility]) doxycycline hyclate 100 MG Oral Capsule Doxycycline Hy clate 100 MG Doxycycline Hyclate 100 MG 06/04/2021 12:00:00 AM EDT 1.0 {capsule} suspended Doxycycline Hyclate 100 MG eCW1 ([facility]) 60 mg 05/29/2021 12:00:00 AM EDT capsule,delayed release (DR/EC) 30 TAKE ONE CAPSULE BY MOUTH EVERY DAY TAKE ONE CAPSULE BY MOUTH EVERY DAY SOLD: 07/05/2021 [facility] 60 mg 05/29/2021 12:00:00 AM EDT capsule,delayed release (DR/EC) 30 TAKE ONE CAPSULE BY MOUTH EVERY DAY TAKE ONE CAPSULE BY MOUTH EVERY DAY SOLD: 06/04/2021 [facility] Bydureon BCise 2 MG/0.85ML Bydureon BCise 2 MG/0.85ML 2020 12:00:00 AM EDT active Bydureon BCise 2 MG/0.85ML eCW1 ([facility]) Bydureon BCise 2 MG/0.85ML Bydureon BCise 2 MG/0.85ML 2020 12:00:00 AM EDT active Bydureon BCise 2 MG/0.85ML eCW1 ([facility]) Bydureon BCise 2 MG/0.85ML Bydureon BCise 2 MG/0.85ML 2020 12:00:00 AM EDT active Bydureon BCise 2 MG/0.85ML eCW1 ([facility]) Bydureon BCise 2 MG/0.85ML Bydureon BCise 2 MG/0.85ML 2020 12:00:00 AM EDT active Bydureon BCise 2 MG/0.85ML eCW1 ([facility]) Bydureon BCise 2 MG/0.85ML Bydureon BCise 2 MG/0.85ML 2020 12:00:00 AM EDT active Bydureon BCise 2 MG/0.85ML eCW1 ([facility]) Bydureon BCise 2 MG/0.85ML Bydureon BCise 2 MG/0.85ML 2020 12:00:00 AM EDT active Bydureon BCise 2 MG/0.85ML eCW1 ([facility]) Bydureon BCise 2 MG/0.85ML Bydureon BCise 2 MG/0.85ML 2020 12:00:00 AM EDT active Bydureon BCise 2 MG/0.85ML eCW1 ([facility]) Bydureon BCise 2 MG/0.85ML Bydureon BCise 2 MG/0.85ML 2020 12:00:00 AM EDT active Bydureon BCise 2 MG/0.85ML eCW1 ([facility]) Bydureon BCise 2 MG/0.85ML Bydureon BCise 2 MG/0.85ML 2020 12:00:00 AM EDT active Bydureon BCise 2 MG/0.85ML eCW1 ([facility]) Bydureon BCise 2 MG/0.85ML Bydureon BCise 2 MG/0.85ML 2020 12:00:00 AM EDT active Bydureon BCise 2 MG/0.85ML eCW1 ([facility]) Bydureon BCise 2 MG/0.85ML Bydureon BCise 2 MG/0.85ML 2020 12:00:00 AM EDT active Bydureon BCise 2 MG/0.85ML eCW1 ([facility]) Bydureon BCise 2 MG/0.85ML Bydureon BCise 2 MG/0.85ML 2020 12:00:00 AM EDT active Bydureon BCise 2 MG/0.85ML eCW1 ([facility]) Bydureon BCise 2 MG/0.85ML Bydureon BCise 2 MG/0.85ML 2020 12:00:00 AM EDT active Bydureon BCise 2 MG/0.85ML eCW1 ([facility]) Bydureon BCise 2 MG/0.85ML Bydureon BCise 2 MG/0.85ML 2020 12:00:00 AM EDT active Bydureon BCise 2 MG/0.85ML eCW1 ([facility]) Bydureon BCise 2 MG/0.85ML Bydureon BCise 2 MG/0.85ML 2020 12:00:00 AM EDT active Bydureon BCise 2 MG/0.85ML eCW1 ([facility]) 500 mg 05/13/2021 12:00:00 AM EDT tablet 60 TAKE ONE TABLET BY MOUTH TWICE A DAY TAKE ONE TABLET BY MOUTH TWICE A DAY SOLD: 05/25/2021 [facility] 500 mg 05/13/2021 12:00:00 AM EDT tablet 60 TAKE ONE TABLET BY MOUTH TWICE A DAY TAKE ONE TABLET BY MOUTH TWICE A DAY SOLD: 07/22/2021 [facility] 500 mg 05/13/2021 12:00:00 AM EDT tablet 60 TAKE ONE TABLET BY MOUTH TWICE A DAY TAKE ONE TABLET BY MOUTH TWICE A DAY SOLD: 06/24/2021 [facility] 50 mg 04/09/2021 12:00:00 AM EDT tablet 30 TAKE ONE TABLET BY MOUTH AT BEDTIME TAKE ONE TABLET BY MOUTH AT BEDTIME SOLD: 06/23/2021 [facility] tizanidine 2 MG Oral Tablet TIZANIDINE HCL 04/09/2021 12:00:00 AM EDT tablet 60 TAKE ONE TO TWO TABLETS BY MOUTH AT BEDTIME NEEDED FOR SPASM TAKE ONE TO TWO TABLETS BY MOUTH AT BEDTIME NEEDED FOR SPASM SOLD: 06/23/2021 [facility] 50 mg 04/09/2021 12:00:00 AM EDT tablet 30 TAKE ONE TABLET BY MOUTH AT BEDTIME TAKE ONE TABLET BY MOUTH AT BEDTIME SOLD: 05/25/2021 [facility] 50 mg 04/09/2021 12:00:00 AM EDT tablet 30 TAKE ONE TABLET BY MOUTH AT BEDTIME TAKE ONE TABLET BY MOUTH AT BEDTIME SOLD: 08/23/2021 [facility] 50 mg 04/09/2021 12:00:00 AM EDT tablet 30 TAKE ONE TABLET BY MOUTH AT BEDTIME TAKE ONE TABLET BY MOUTH AT BEDTIME SOLD: 04/11/2021 [facility] tizanidine 2 MG Oral Tablet TIZANIDINE HCL 04/09/2021 12:00:00 AM EDT tablet 60 TAKE ONE TO TWO TABLETS BY MOUTH AT BEDTIME NEEDED FOR SPASM TAKE ONE TO TWO TABLETS BY MOUTH AT BEDTIME NEEDED FOR SPASM SOLD: 07/22/2021 [facility] 50 mg 04/09/2021 12:00:00 AM EDT tablet 30 TAKE ONE TABLET BY MOUTH AT BEDTIME TAKE ONE TABLET BY MOUTH AT BEDTIME SOLD: 07/22/2021 [facility] tizanidine 2 MG Oral Tablet TIZANIDINE HCL 04/09/2021 12:00:00 AM EDT tablet 60 TAKE ONE TO TWO TABLETS BY MOUTH AT BEDTIME NEEDED FOR SPASM TAKE ONE TO TWO TABLETS BY MOUTH AT BEDTIME NEEDED FOR SPASM SOLD: 04/11/2021 [facility] tizanidine 2 MG Oral Tablet TIZANIDINE HCL 04/09/2021 12:00:00 AM EDT tablet 60 TAKE ONE TO TWO TABLETS BY MOUTH AT BEDTIME NEEDED FOR SPASM TAKE ONE TO TWO TABLETS BY MOUTH AT BEDTIME NEEDED FOR SPASM SOLD: 08/23/2021 [facility] tizanidine 2 MG Oral Tablet TIZANIDINE HCL 04/09/2021 12:00:00 AM EDT tablet 60 TAKE ONE TO TWO TABLETS BY MOUTH AT BEDTIME NEEDED FOR SPASM TAKE ONE TO TWO TABLETS BY MOUTH AT BEDTIME NEEDED FOR SPASM SOLD: 05/25/2021 [facility] 500 mg 03/12/2021 12:00:00 AM EDT tablet 60 TAKE 1 TABLET BY MOUTH EVERY DAY FOR 7 DAYS, THEN INCREASE TO 1 TABLET TWICE A DAY TAKE 1 TABLET BY MOUTH EVERY DAY FOR 7 DAYS, THEN INCREASE TO 1 TABLET TWICE A DAY SOLD: 04/11/2021 [facility] 500 mg 03/12/2021 12:00:00 AM EDT tablet 60 TAKE 1 TABLET BY MOUTH EVERY DAY FOR 7 DAYS, THEN INCREASE TO 1 TABLET TWICE A DAY TAKE 1 TABLET BY MOUTH EVERY DAY FOR 7 DAYS, THEN INCREASE TO 1 TABLET TWICE A DAY SOLD: 03/12/2021 [facility] Meclizine Hydrochloride 25 MG Oral Tablet Meclizine HC l 25 MG Meclizine HCl 25 MG 02/18/2021 12:00:00 AM EDT 1.0 {tablet_as_needed} active Meclizine HCl 25 MG eCW1 ([facility]) Meclizine Hydrochloride 25 MG Oral Tablet Meclizine HC l 25 MG Meclizine HCl 25 MG 02/18/2021 12:00:00 AM EDT 1.0 {tablet_as_needed} active Meclizine HCl 25 MG eCW1 ([facility]) Meclizine Hydrochloride 25 MG Oral Tablet Meclizine HC l 25 MG Meclizine HCl 25 MG 02/18/2021 12:00:00 AM EDT 1.0 {tablet_as_needed} active Meclizine HCl 25 MG eCW1 ([facility]) Meclizine Hydrochloride 25 MG Oral Tablet Meclizine HC l 25 MG Meclizine HCl 25 MG 02/18/2021 12:00:00 AM EDT 1.0 {tablet_as_needed} active Meclizine HCl 25 MG eCW1 ([facility]) Meclizine Hydrochloride 25 MG Oral Tablet Meclizine HC l 25 MG Meclizine HCl 25 MG 02/18/2021 12:00:00 AM EDT 1.0 {tablet_as_needed} active Meclizine HCl 25 MG eCW1 ([facility]) Meclizine Hydrochloride 25 MG Oral Tablet Meclizine HC l 25 MG Meclizine HCl 25 MG 02/18/2021 12:00:00 AM EDT 1.0 {tablet_as_needed} active Meclizine HCl 25 MG eCW1 ([facility]) Meclizine Hydrochloride 25 MG Oral Tablet Meclizine HC l 25 MG Meclizine HCl 25 MG 02/18/2021 12:00:00 AM EDT 1.0 {tablet_as_needed} active Meclizine HCl 25 MG eCW1 ([facility]) Meclizine Hydrochloride 25 MG Oral Tablet Meclizine HC l 25 MG Meclizine HCl 25 MG 02/18/2021 12:00:00 AM EDT 1.0 {tablet_as_needed} active Meclizine HCl 25 MG eCW1 ([facility]) Meclizine Hydrochloride 25 MG Oral Tablet Meclizine HC l 25 MG Meclizine HCl 25 MG 02/18/2021 12:00:00 AM EDT 1.0 {tablet_as_needed} active Meclizine HCl 25 MG eCW1 ([facility]) Meclizine Hydrochloride 25 MG Oral Tablet Meclizine HC l 25 MG Meclizine HCl 25 MG 02/18/2021 12:00:00 AM EDT 1.0 {tablet_as_needed} active Meclizine HCl 25 MG eCW1 ([facility]) Meclizine Hydrochloride 25 MG Oral Tablet Meclizine HC l 25 MG Meclizine HCl 25 MG 02/18/2021 12:00:00 AM EDT 1.0 {tablet_as_needed} active Meclizine HCl 25 MG eCW1 ([facility]) Meclizine Hydrochloride 25 MG Oral Tablet Meclizine HC l 25 MG Meclizine HCl 25 MG 02/18/2021 12:00:00 AM EDT 1.0 {tablet_as_needed} active Meclizine HCl 25 MG eCW1 ([facility]) Meclizine Hydrochloride 25 MG Oral Tablet Meclizine HC l 25 MG Meclizine HCl 25 MG 02/18/2021 12:00:00 AM EDT 1.0 {tablet_as_needed} active Meclizine HCl 25 MG eCW1 ([facility]) Meclizine Hydrochloride 25 MG Oral Tablet Meclizine HC l 25 MG Meclizine HCl 25 MG 02/18/2021 12:00:00 AM EDT 1.0 {tablet_as_needed} active Meclizine HCl 25 MG eCW1 ([facility]) Meclizine Hydrochloride 25 MG Oral Tablet Meclizine HC l 25 MG Meclizine HCl 25 MG 02/18/2021 12:00:00 AM EDT 1.0 {tablet_as_needed} active Meclizine HCl 25 MG eCW1 ([facility]) Meclizine Hydrochloride 25 MG Oral Tablet Meclizine HC l 25 MG Meclizine HCl 25 MG 02/18/2021 12:00:00 AM EDT 1.0 {tablet_as_needed} active Meclizine HCl 25 MG eCW1 ([facility]) Meclizine Hydrochloride 25 MG Oral Tablet Meclizine HC l 25 MG Meclizine HCl 25 MG 02/18/2021 12:00:00 AM EDT 1.0 {tablet_as_needed} active Meclizine HCl 25 MG eCW1 ([facility]) Meclizine Hydrochloride 25 MG Oral Tablet Meclizine HC l 25 MG Meclizine HCl 25 MG 02/18/2021 12:00:00 AM EDT 1.0 {tablet_as_needed} active Meclizine HCl 25 MG eCW1 ([facility]) Meclizine Hydrochloride 25 MG Oral Tablet Meclizine HC l 25 MG Meclizine HCl 25 MG 02/18/2021 12:00:00 AM EDT 1.0 {tablet_as_needed} active Meclizine HCl 25 MG eCW1 ([facility]) Meclizine Hydrochloride 25 MG Oral Tablet Meclizine HC l 25 MG Meclizine HCl 25 MG 02/18/2021 12:00:00 AM EDT 1.0 {tablet_as_needed} active Meclizine HCl 25 MG eCW1 ([facility]) Meclizine Hydrochloride 25 MG Oral Tablet Meclizine HC l 25 MG Meclizine HCl 25 MG 02/18/2021 12:00:00 AM EDT 1.0 {tablet_as_needed} active Meclizine HCl 25 MG eCW1 ([facility]) Meclizine Hydrochloride 25 MG Oral Tablet Meclizine HC l 25 MG Meclizine HCl 25 MG 02/18/2021 12:00:00 AM EDT 1.0 {tablet_as_needed} active Meclizine HCl 25 MG eCW1 ([facility]) Meclizine Hydrochloride 25 MG Oral Tablet Meclizine HC l 25 MG Meclizine HCl 25 MG 02/18/2021 12:00:00 AM EDT 1.0 {tablet_as_needed} active Meclizine HCl 25 MG eCW1 ([facility]) Meclizine Hydrochloride 25 MG Oral Tablet Meclizine HC l 25 MG Meclizine HCl 25 MG 02/18/2021 12:00:00 AM EDT 1.0 {tablet_as_needed} active Meclizine HCl 25 MG eCW1 ([facility]) Meclizine Hydrochloride 25 MG Oral Tablet Meclizine HC l 25 MG Meclizine HCl 25 MG 02/18/2021 12:00:00 AM EDT 1.0 {tablet_as_needed} active Meclizine HCl 25 MG eCW1 ([facility]) Meclizine Hydrochloride 25 MG Oral Tablet Meclizine HC l 25 MG Meclizine HCl 25 MG 02/18/2021 12:00:00 AM EDT 1.0 {tablet_as_needed} active Meclizine HCl 25 MG eCW1 ([facility]) Meclizine Hydrochloride 25 MG Oral Tablet Meclizine HC l 25 MG Meclizine HCl 25 MG 02/18/2021 12:00:00 AM EDT 1.0 {tablet_as_needed} active Meclizine HCl 25 MG eCW1 ([facility]) Meclizine Hydrochloride 25 MG Oral Tablet Meclizine HC l 25 MG Meclizine HCl 25 MG 02/18/2021 12:00:00 AM EDT 1.0 {tablet_as_needed} active Meclizine HCl 25 MG eCW1 ([facility]) Meclizine Hydrochloride 25 MG Oral Tablet Meclizine HC l 25 MG Meclizine HCl 25 MG 02/18/2021 12:00:00 AM EDT 1.0 {tablet_as_needed} active Meclizine HCl 25 MG eCW1 ([facility]) Meclizine Hydrochloride 25 MG Oral Tablet Meclizine HC l 25 MG Meclizine HCl 25 MG 02/18/2021 12:00:00 AM EDT 1.0 {tablet_as_needed} active Meclizine HCl 25 MG eCW1 ([facility]) Meclizine Hydrochloride 25 MG Oral Tablet Meclizine HC l 25 MG Meclizine HCl 25 MG 02/18/2021 12:00:00 AM EDT 1.0 {tablet_as_needed} active Meclizine HCl 25 MG eCW1 ([facility]) BD Pen Needle Original U/F 29G X 12.7MM BD Pen Needle Origin al U/F 29G X 12.7MM 01/27/2021 12:00:00 AM EDT active BD Pen Needle Original U/F 29G X 12.7MM eCW1 ([facility]) BD Pen Needle Original U/F 29G X 12.7MM BD Pen Needle Origin al U/F 29G X 12.7MM 01/27/2021 12:00:00 AM EDT active BD Pen Needle Original U/F 29G X 12.7MM eCW1 ([facility]) BD Pen Needle Original U/F 29G X 12.7MM BD Pen Needle Origin al U/F 29G X 12.7MM 01/27/2021 12:00:00 AM EDT active BD Pen Needle Original U/F 29G X 12.7MM eCW1 ([facility]) BD Pen Needle Original U/F 29G X 12.7MM BD Pen Needle Origin al U/F 29G X 12.7MM 01/27/2021 12:00:00 AM EDT active BD Pen Needle Original U/F 29G X 12.7MM eCW1 ([facility]) BD Pen Needle Original U/F 29G X 12.7MM BD Pen Needle Origin al U/F 29G X 12.7MM 01/27/2021 12:00:00 AM EDT active BD Pen Needle Original U/F 29G X 12.7MM eCW1 ([facility]) BD Pen Needle Original U/F 29G X 12.7MM BD Pen Needle Origin al U/F 29G X 12.7MM 01/27/2021 12:00:00 AM EDT active BD Pen Needle Original U/F 29G X 12.7MM eCW1 ([facility]) BD Pen Needle Original U/F 29G X 12.7MM BD Pen Needle Origin al U/F 29G X 12.7MM 01/27/2021 12:00:00 AM EDT active BD Pen Needle Original U/F 29G X 12.7MM eCW1 ([facility]) BD Pen Needle Original U/F 29G X 12.7MM BD Pen Needle Origin al U/F 29G X 12.7MM 01/27/2021 12:00:00 AM EDT active BD Pen Needle Original U/F 29G X 12.7MM eCW1 ([facility]) BD Pen Needle Original U/F 29G X 12.7MM BD Pen Needle Origin al U/F 29G X 12.7MM 01/27/2021 12:00:00 AM EDT active BD Pen Needle Original U/F 29G X 12.7MM eCW1 ([facility]) BD Pen Needle Original U/F 29G X 12.7MM BD Pen Needle Origin al U/F 29G X 12.7MM 01/27/2021 12:00:00 AM EDT active BD Pen Needle Original U/F 29G X 12.7MM eCW1 ([facility]) BD Pen Needle Original U/F 29G X 12.7MM BD Pen Needle Origin al U/F 29G X 12.7MM 01/27/2021 12:00:00 AM EDT active BD Pen Needle Original U/F 29G X 12.7MM eCW1 ([facility]) BD Pen Needle Original U/F 29G X 12.7MM BD Pen Needle Origin al U/F 29G X 12.7MM 01/27/2021 12:00:00 AM EDT active BD Pen Needle Original U/F 29G X 12.7MM eCW1 ([facility]) BD Pen Needle Original U/F 29G X 12.7MM BD Pen Needle Origin al U/F 29G X 12.7MM 01/27/2021 12:00:00 AM EDT active BD Pen Needle Original U/F 29G X 12.7MM eCW1 ([facility]) BD Pen Needle Original U/F 29G X 12.7MM BD Pen Needle Origin al U/F 29G X 12.7MM 01/27/2021 12:00:00 AM EDT active BD Pen Needle Original U/F 29G X 12.7MM eCW1 ([facility]) BD Pen Needle Original U/F 29G X 12.7MM BD Pen Needle Origin al U/F 29G X 12.7MM 01/27/2021 12:00:00 AM EDT active BD Pen Needle Original U/F 29G X 12.7MM eCW1 ([facility]) BD Pen Needle Original U/F 29G X 12.7MM BD Pen Needle Origin al U/F 29G X 12.7MM 01/27/2021 12:00:00 AM EDT active BD Pen Needle Original U/F 29G X 12.7MM eCW1 ([facility]) BD Pen Needle Original U/F 29G X 12.7MM BD Pen Needle Origin al U/F 29G X 12.7MM 01/27/2021 12:00:00 AM EDT active BD Pen Needle Original U/F 29G X 12.7MM eCW1 ([facility]) BD Pen Needle Original U/F 29G X 12.7MM BD Pen Needle Origin al U/F 29G X 12.7MM 01/27/2021 12:00:00 AM EDT active BD Pen Needle Original U/F 29G X 12.7MM eCW1 ([facility]) BD Pen Needle Original U/F 29G X 12.7MM BD Pen Needle Origin al U/F 29G X 12.7MM 01/27/2021 12:00:00 AM EDT active BD Pen Needle Original U/F 29G X 12.7MM eCW1 ([facility]) BD Pen Needle Original U/F 29G X 12.7MM BD Pen Needle Origin al U/F 29G X 12.7MM 01/27/2021 12:00:00 AM EDT active BD Pen Needle Original U/F 29G X 12.7MM eCW1 ([facility]) BD Pen Needle Original U/F 29G X 12.7MM BD Pen Needle Origin al U/F 29G X 12.7MM 01/27/2021 12:00:00 AM EDT active BD Pen Needle Original U/F 29G X 12.7MM eCW1 ([facility]) BD Pen Needle Original U/F 29G X 12.7MM BD Pen Needle Origin al U/F 29G X 12.7MM 01/27/2021 12:00:00 AM EDT active BD Pen Needle Original U/F 29G X 12.7MM eCW1 ([facility]) BD Pen Needle Original U/F 29G X 12.7MM BD Pen Needle Origin al U/F 29G X 12.7MM 01/27/2021 12:00:00 AM EDT active BD Pen Needle Original U/F 29G X 12.7MM eCW1 ([facility]) BD Pen Needle Original U/F 29G X 12.7MM BD Pen Needle Origin al U/F 29G X 12.7MM 01/27/2021 12:00:00 AM EDT active BD Pen Needle Original U/F 29G X 12.7MM eCW1 ([facility]) BD Pen Needle Original U/F 29G X 12.7MM BD Pen Needle Origin al U/F 29G X 12.7MM 01/27/2021 12:00:00 AM EDT active BD Pen Needle Original U/F 29G X 12.7MM eCW1 ([facility]) BD Pen Needle Original U/F 29G X 12.7MM BD Pen Needle Origin al U/F 29G X 12.7MM 01/27/2021 12:00:00 AM EDT active BD Pen Needle Original U/F 29G X 12.7MM eCW1 ([facility]) BD Pen Needle Original U/F 29G X 12.7MM BD Pen Needle Origin al U/F 29G X 12.7MM 01/27/2021 12:00:00 AM EDT active BD Pen Needle Original U/F 29G X 12.7MM eCW1 ([facility]) BD Pen Needle Original U/F 29G X 12.7MM BD Pen Needle Origin al U/F 29G X 12.7MM 01/27/2021 12:00:00 AM EDT active BD Pen Needle Original U/F 29G X 12.7MM eCW1 ([facility]) BD Pen Needle Original U/F 29G X 12.7MM BD Pen Needle Origin al U/F 29G X 12.7MM 01/27/2021 12:00:00 AM EDT active BD Pen Needle Original U/F 29G X 12.7MM eCW1 ([facility]) BD Pen Needle Original U/F 29G X 12.7MM BD Pen Needle Origin al U/F 29G X 12.7MM 01/27/2021 12:00:00 AM EDT active BD Pen Needle Original U/F 29G X 12.7MM eCW1 ([facility]) BD Pen Needle Original U/F 29G X 12.7MM BD Pen Needle Origin al U/F 29G X 12.7MM 01/27/2021 12:00:00 AM EDT active BD Pen Needle Original U/F 29G X 12.7MM eCW1 ([facility]) BD Pen Needle Original U/F 29G X 12.7MM BD Pen Needle Origin al U/F 29G X 12.7MM 01/27/2021 12:00:00 AM EDT active BD Pen Needle Original U/F 29G X 12.7MM eCW1 ([facility]) BD Pen Needle Original U/F 29G X 12.7MM BD Pen Needle Origin al U/F 29G X 12.7MM 01/27/2021 12:00:00 AM EDT active BD Pen Needle Original U/F 29G X 12.7MM eCW1 ([facility]) 60 mg 01/12/2021 12:00:00 AM EDT capsule,delayed release (DR/EC) 30 TAKE ONE CAPSULE BY MOUTH EVERY DAY TAKE ONE CAPSULE BY MOUTH EVERY DAY SOLD: 04/28/2021 [facility] 60 mg 01/12/2021 12:00:00 AM EDT capsule,delayed release (DR/EC) 30 TAKE ONE CAPSULE BY MOUTH EVERY DAY TAKE ONE CAPSULE BY MOUTH EVERY DAY SOLD: 03/25/2021 [facility] 60 mg 01/12/2021 12:00:00 AM EDT capsule,delayed release (DR/EC) 30 TAKE ONE CAPSULE BY MOUTH EVERY DAY TAKE ONE CAPSULE BY MOUTH EVERY DAY SOLD: 02/20/2021 [facility] 60 mg 01/12/2021 12:00:00 AM EDT capsule,delayed release (DR/EC) 30 TAKE ONE CAPSULE BY MOUTH EVERY DAY TAKE ONE CAPSULE BY MOUTH EVERY DAY SOLD: 01/18/2021 [facility] 30 mg 01/09/2021 12:00:00 AM EDT capsule,delayed release (DR/EC) 30 TAKE ONE CAPSULE BY MOUTH EVERY DAY WITH 60 MG CAPSULE TAKE ONE CAPSULE BY MOUTH EVERY DAY WITH 60 MG CAPSULE SOLD: 03/12/2021 [facility] 30 mg 01/09/2021 12:00:00 AM EDT capsule,delayed release (DR/EC) 30 TAKE ONE CAPSULE BY MOUTH EVERY DAY WITH 60 MG CAPSULE TAKE ONE CAPSULE BY MOUTH EVERY DAY WITH 60 MG CAPSULE SOLD: 01/09/2021 [facility] 30 mg 01/09/2021 12:00:00 AM EDT capsule,delayed release (DR/EC) 30 TAKE ONE CAPSULE BY MOUTH EVERY DAY WITH 60 MG CAPSULE TAKE ONE CAPSULE BY MOUTH EVERY DAY WITH 60 MG CAPSULE SOLD: 02/07/2021 [facility] 500 mg 01/08/2021 12:00:00 AM EDT tablet 60 TAKE ONE TABLET BY MOUTH EVERY DAY FOR 7 DAYS, THEN INCREASE TO ONE TABLET TWICE A DAY TAKE ONE TABLET BY MOUTH EVERY DAY FOR 7 DAYS, THEN INCREASE TO ONE TABLET TWICE A DAY SOLD: 01/09/2021 [facility] 500 mg 01/08/2021 12:00:00 AM EDT tablet 60 TAKE ONE TABLET BY MOUTH EVERY DAY FOR 7 DAYS, THEN INCREASE TO ONE TABLET TWICE A DAY TAKE ONE TABLET BY MOUTH EVERY DAY FOR 7 DAYS, THEN INCREASE TO ONE TABLET TWICE A DAY SOLD: 02/07/2021 [facility] Metformin hydrochloride 1000 MG Oral Tablet metFORMIN HCl 1000 MG Oral Tablet metFORMIN HCl 1000 MG Oral Tablet 11/27/2020 12:00:00 AM EST 1 active metformin hydrochloride 1000 MG Oral Tablet BECKA ( Travon Borrego MD [facility]) Acetaminophen 325 MG / Hydrocodone Luke trate 5 MG Oral Tablet HYDROcodone- Acetaminophen 5-325 MG Oral Tablet HYDROcodone-Acetaminophen 5-325 MG Oral Tablet 11/27/2020 12:00:00 AM EST 1 active acetaminophen 325 MG / hydrocodone bitartrate 5 MG Oral Tablet BECKA (Travon Borrego MD [facility]) Hydroxizine 25mg Oral Tablet Hydroxizine 25mg Oral Tablet 12:00:00 AM EST active Hydroxizine [address] (Travon Borrego MD [facility]) levocetirizine dihydrochloride 5 MG Oral Tablet [Xyzal ] Xyzal 5 MG Oral Tablet Xyzal 5 MG Oral Tablet 11/27/2020 12:00:00 AM EST 1 active levocetirizine dihydrochloride 5 MG Oral Tablet [Xyzal] BECKA (Travon Borrego MD [facility]) Cymbalta 90 MG Oral Capsule Cymbalta 90 MG Oral Capsule 11/09 12:00:00 AM EST 1 active Cymbalta [address] (Travon Borrego MD [facility]) cetirizine hydrochloride 10 MG Oral Tabl et [Zyrtec] ZyrTEC Allergy 10 MG Oral Tablet ZyrTEC Allergy 10 MG Oral Tablet 11/27/2020 12:00:00 AM EST 1 active cetirizine hydrochloride 10 MG O ral Tablet [Zyrtec] BECKA (Travon Borrego MD [facility]) topiramate 50 MG Oral Tablet [Topamax] Topamax 50 MG O ral Tablet Topamax 50 MG Oral Tablet 11/27/2020 12:00:00 AM EST 1 active topiramate 50 MG Oral Tablet [Topamax] BECKA (Travon Borrego MD [facility]) latanoprost 0.05 MG/ML Ophthalmic Soluti on Latanoprost 0.005% Ophthalmic Solution Latanoprost 0.005% Ophthalmic Solution 11/27/2020 12:00:00 AM EST 1 active latanoprost 0.05 MG/ ML Ophthalmic Solution BECKA (Travon Borrego MD [facility]) 60 mg 11/20/2020 12:00:00 AM EST capsule,delayed release (DR/EC) 30 TAKE ONE CAPSULE BY MOUTH EVERY DAY TAKE ONE CAPSULE BY MOUTH EVERY DAY SOLD: 12/18/2020 [facility] 60 mg 11/20/2020 12:00:00 AM EST capsule,delayed release (DR/EC) 30 TAKE ONE CAPSULE BY MOUTH EVERY DAY TAKE ONE CAPSULE BY MOUTH EVERY DAY SOLD: 11/20/2020 [facility] 5 mg 11/05/2020 12:00:00 AM EST tablet 20 TAKE 1 & 1/2 TABLETS BY MOUTH AT BEDTIME TAKE 1 & 1/2 TABLETS BY MOUTH AT BEDTIME SOLD: 04/02/2021 [facility] 5 mg 11/05/2020 12:00:00 AM EST tablet 20 TAKE 1 & 1/2 TABLETS BY MOUTH AT BEDTIME TAKE 1 & 1/2 TABLETS BY MOUTH AT BEDTIME SOLD: 11/05/2020 [facility] 5-325 mg 10/20/2020 12:00:00 AM EST tablet 30 TAKE ONE TABLET BY MOUTH EVERY DAY NEEDED FOR PAIN MAXIMUM DAILY DOSE = 1 TAKE ONE TABLET BY MOUTH EVERY DAY NEEDED FOR PAIN MAXIMUM DAILY DOSE = 1 SOLD: 10/21/2020 [facility] cefdinir 300 MG Oral Capsule Cefdinir 10/19/2020 12:00:00 AM EST ORAL active MEDENT ([facility], [facility]) Trujeo 10/19/2020 12:00:00 AM EST active MEDENT ([facility], [facility]) Acetaminophen 325 MG / Hydrocodone Bitartrate 5 MG Oral Tabl et [Tyler] Tyler 10/19/2020 12:00:00 AM EST active MEDENT ([facility], [facility]) Prednisone 20 MG Oral Tablet Prednisone 10/19/2020 12:00:00 AM EST active MEDENT ([facility], [facility]) 200 ACTUAT Albuterol 0.09 MG/ACTUAT Mete red Dose Inhaler [ProAir] ProAir HFA 108 (90 Base) MCG/ACT ProAir HFA 108 (90 Base) MCG/ACT 10/16/2020 12:00:00 AM EST 1.0 {puff_as_needed} active Pro Air HFA 108 (90 Base) MCG/ACT eCW1 ([facility]) 200 ACTUAT Albuterol 0.09 MG/ACTUAT Mete red Dose Inhaler [ProAir] ProAir HFA 108 (90 Base) MCG/ACT ProAir HFA 108 (90 Base) MCG/ACT 10/16/2020 12:00:00 AM EST 1.0 {puff_as_needed} active Pro Air HFA 108 (90 Base) MCG/ACT eCW1 ([facility]) 200 ACTUAT Albuterol 0.09 MG/ACTUAT Mete red Dose Inhaler [ProAir] ProAir HFA 108 (90 Base) MCG/ACT ProAir HFA 108 (90 Base) MCG/ACT 10/16/2020 12:00:00 AM EST 1.0 {puff_as_needed} active Pro Air HFA 108 (90 Base) MCG/ACT eCW1 ([facility]) 200 ACTUAT Albuterol 0.09 MG/ACTUAT Mete red Dose Inhaler [ProAir] ProAir HFA 108 (90 Base) MCG/ACT ProAir HFA 108 (90 Base) MCG/ACT 10/16/2020 12:00:00 AM EST 1.0 {puff_as_needed} active Pro Air HFA 108 (90 Base) MCG/ACT eCW1 ([facility]) 200 ACTUAT Albuterol 0.09 MG/ACTUAT Mete red Dose Inhaler [ProAir] ProAir HFA 108 (90 Base) MCG/ACT ProAir HFA 108 (90 Base) MCG/ACT 10/16/2020 12:00:00 AM EST 1.0 {puff_as_needed} active Pro Air HFA 108 (90 Base) MCG/ACT eCW1 ([facility]) 200 ACTUAT Albuterol 0.09 MG/ACTUAT Mete red Dose Inhaler [ProAir] ProAir HFA 108 (90 Base) MCG/ACT ProAir HFA 108 (90 Base) MCG/ACT 10/16/2020 12:00:00 AM EST 1.0 {puff_as_needed} active Pro Air HFA 108 (90 Base) MCG/ACT eCW1 ([facility]) 200 ACTUAT Albuterol 0.09 MG/ACTUAT Mete red Dose Inhaler [ProAir] ProAir HFA 108 (90 Base) MCG/ACT ProAir HFA 108 (90 Base) MCG/ACT 10/16/2020 12:00:00 AM EST 1.0 {puff_as_needed} active Pro Air HFA 108 (90 Base) MCG/ACT eCW1 ([facility]) 200 ACTUAT Albuterol 0.09 MG/ACTUAT Mete red Dose Inhaler [ProAir] ProAir HFA 108 (90 Base) MCG/ACT ProAir HFA 108 (90 Base) MCG/ACT 10/16/2020 12:00:00 AM EST 1.0 {puff_as_needed} active Pro Air HFA 108 (90 Base) MCG/ACT eCW1 ([facility]) 200 ACTUAT Albuterol 0.09 MG/ACTUAT Mete red Dose Inhaler [ProAir] ProAir HFA 108 (90 Base) MCG/ACT ProAir HFA 108 (90 Base) MCG/ACT 10/16/2020 12:00:00 AM EST 1.0 {puff_as_needed} active Pro Air HFA 108 (90 Base) MCG/ACT eCW1 ([facility]) 200 ACTUAT Albuterol 0.09 MG/ACTUAT Mete red Dose Inhaler [ProAir] ProAir HFA 108 (90 Base) MCG/ACT ProAir HFA 108 (90 Base) MCG/ACT 10/16/2020 12:00:00 AM EST 1.0 {puff_as_needed} active Pro Air HFA 108 (90 Base) MCG/ACT eCW1 ([facility]) 200 ACTUAT Albuterol 0.09 MG/ACTUAT Mete red Dose Inhaler [ProAir] ProAir HFA 108 (90 Base) MCG/ACT ProAir HFA 108 (90 Base) MCG/ACT 10/16/2020 12:00:00 AM EST 1.0 {puff_as_needed} active Pro Air HFA 108 (90 Base) MCG/ACT eCW1 ([facility]) 200 ACTUAT Albuterol 0.09 MG/ACTUAT Mete red Dose Inhaler [ProAir] ProAir HFA 108 (90 Base) MCG/ACT ProAir HFA 108 (90 Base) MCG/ACT 10/16/2020 12:00:00 AM EST 1.0 {puff_as_needed} active Pro Air HFA 108 (90 Base) MCG/ACT eCW1 ([facility]) 200 ACTUAT Albuterol 0.09 MG/ACTUAT Mete red Dose Inhaler [ProAir] ProAir HFA 108 (90 Base) MCG/ACT ProAir HFA 108 (90 Base) MCG/ACT 10/16/2020 12:00:00 AM EST 1.0 {puff_as_needed} active Pro Air HFA 108 (90 Base) MCG/ACT eCW1 ([facility]) 200 ACTUAT Albuterol 0.09 MG/ACTUAT Mete red Dose Inhaler [ProAir] ProAir HFA 108 (90 Base) MCG/ACT ProAir HFA 108 (90 Base) MCG/ACT 10/16/2020 12:00:00 AM EST 1.0 {puff_as_needed} active Pro Air HFA 108 (90 Base) MCG/ACT eCW1 ([facility]) 200 ACTUAT Albuterol 0.09 MG/ACTUAT Mete red Dose Inhaler [ProAir] ProAir HFA 108 (90 Base) MCG/ACT ProAir HFA 108 (90 Base) MCG/ACT 10/16/2020 12:00:00 AM EST 1.0 {puff_as_needed} active Pro Air HFA 108 (90 Base) MCG/ACT eCW1 ([facility]) 200 ACTUAT Albuterol 0.09 MG/ACTUAT Mete red Dose Inhaler [ProAir] ProAir HFA 108 (90 Base) MCG/ACT ProAir HFA 108 (90 Base) MCG/ACT 10/16/2020 12:00:00 AM EST 1.0 {puff_as_needed} active Pro Air HFA 108 (90 Base) MCG/ACT eCW1 ([facility]) 200 ACTUAT Albuterol 0.09 MG/ACTUAT Mete red Dose Inhaler [ProAir] ProAir HFA 108 (90 Base) MCG/ACT ProAir HFA 108 (90 Base) MCG/ACT 10/16/2020 12:00:00 AM EST 1.0 {puff_as_needed} active Pro Air HFA 108 (90 Base) MCG/ACT eCW1 ([facility]) 200 ACTUAT Albuterol 0.09 MG/ACTUAT Mete red Dose Inhaler [ProAir] ProAir HFA 108 (90 Base) MCG/ACT ProAir HFA 108 (90 Base) MCG/ACT 10/16/2020 12:00:00 AM EST 1.0 {puff_as_needed} active Pro Air HFA 108 (90 Base) MCG/ACT eCW1 ([facility]) 200 ACTUAT Albuterol 0.09 MG/ACTUAT Mete red Dose Inhaler [ProAir] ProAir HFA 108 (90 Base) MCG/ACT ProAir HFA 108 (90 Base) MCG/ACT 10/16/2020 12:00:00 AM EST 1.0 {puff_as_needed} active Pro Air HFA 108 (90 Base) MCG/ACT eCW1 ([facility]) 200 ACTUAT Albuterol 0.09 MG/ACTUAT Mete red Dose Inhaler [ProAir] ProAir HFA 108 (90 Base) MCG/ACT ProAir HFA 108 (90 Base) MCG/ACT 10/16/2020 12:00:00 AM EST 1.0 {puff_as_needed} active Pro Air HFA 108 (90 Base) MCG/ACT eCW1 ([facility]) 200 ACTUAT Albuterol 0.09 MG/ACTUAT Mete red Dose Inhaler [ProAir] ProAir HFA 108 (90 Base) MCG/ACT ProAir HFA 108 (90 Base) MCG/ACT 10/16/2020 12:00:00 AM EST 1.0 {puff_as_needed} active Pro Air HFA 108 (90 Base) MCG/ACT eCW1 ([facility]) 200 ACTUAT Albuterol 0.09 MG/ACTUAT Mete red Dose Inhaler [ProAir] ProAir HFA 108 (90 Base) MCG/ACT ProAir HFA 108 (90 Base) MCG/ACT 10/16/2020 12:00:00 AM EST 1.0 {puff_as_needed} active Pro Air HFA 108 (90 Base) MCG/ACT eCW1 ([facility]) 200 ACTUAT Albuterol 0.09 MG/ACTUAT Mete red Dose Inhaler [ProAir] ProAir HFA 108 (90 Base) MCG/ACT ProAir HFA 108 (90 Base) MCG/ACT 10/16/2020 12:00:00 AM EST 1.0 {puff_as_needed} active Pro Air HFA 108 (90 Base) MCG/ACT eCW1 ([facility]) 200 ACTUAT Albuterol 0.09 MG/ACTUAT Mete red Dose Inhaler [ProAir] ProAir HFA 108 (90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 entirely fatty. NOTE: IF A WORK-UP OF THIS PATIENT LEADS TO A BIOPSY, PLEASE FORWARD A COPY OF THE PATHOLOGY REPORT TO OUR OFFICE REQUIRED BY [facility] EFFECTIVE JULY 09, 1994. A NEGATIVE MAMMOGRAM SHOULD NOT PRECLUDE BIOPSY OF A CLINICALLY PALPABLE SUSPICIOUS MASS, 10% OF BREAST CANCERS ARE MAMMOGRAPHICALLY OCCULT. Note: for findings of BIRADS 0, our office will contact the patient to arrange further mammographicand/or ultrasound imaging as needed. If MRI is recommended, this should be ordered and scheduled by the ordering provider's office. This mammogram was read with the assistance of Franko, an FDA-approved computer-aided detection system for mammography. Reported By Latisha Abdi MD on 08/24/21 1353 Signed By Latisha Abdi MD on 08/25/21 0834 Date Time CC: Latisha Abdi M.D.; No Family PHYS Provided Techn: BAKLE Trans Dt/Tm: Trans by: DT Prt Dt/Tm: : Total DLP = 0.00 mGy-cm : Total Radiation Dose = 0.0000 mSv Lifetime Dose: 0 mSv Name Value Range Interpretation Code Description Data Melissa rce(s) Supporting Document(s) ID Date Data Source [id number] 07/06/2021 04:11:00 PM EDT [facility] Name Value Range Interpretation Code Description Data Melissa rce(s) Supporting Document(s) SARS COVID ANTIGEN NEGATIVE [facility] This lab was ordered by YUE jackson nd reported by [facility]. ID Date Data Source FAVIO COVID AG (Point of Care) 07/06/2021 12:00:00 AM EDT eC W1 ([facility]) Name Value Range Interpretation Code Description Data Melissa rce(s) Supporting Document(s) NEGATIVE NEGATIVE FAVIO COVID ANTIGEN eCW1 ([facility]) ID Date Data Source [id number] 08/19/2021 11:46:47 AM EST [facility]: Kristen umanzor Pedro LuisDOB: 1970Provider: Edwar MukherjeeJacky: 06/10/2021 Chief ComplaintPatient is here with chronic left lower extremity pain from a workers compensation injury date of 03/09/04 Chief Complaint 2NYSW VAS PAIN Established: SHANAE completing section: Lidia Hull LPN History of Present IllnessRecent test/procedures: Patient has had the following tests/procedures since their last visit: Chemotherapy . Patient has been seen by the following physician since their last visit: Dr. Mcelroy At today's visit patient presents with their Self Implanted Devices The patient has the following implanted device(s): SCS. The patient does not have a glucose monitoring device. Patient is not currently working. The patient is being seen for a workers compensation follow-up. The workers compensation date of injury is 03/09/04. Pain Quality: (Neuropathic) burning and pain changes with weather Pain Quality: (Nociceptive) aching, sharp and stabbing Timing: consta nt Palliation: heat Exacerbating: standing and weather Pain Score: a current pain level of 3/10. Condition type: The patient is being seen for a chronic condition. PAIN LOCATION: in the left leg. INTERVAL EVENTS: include . Patient has chronic left leg pain from a workers compensation injury date of 03/09/04.She injured her left patella at work but no surgery was needed. Her pain is constantly there with it increasing with the colder weather and is better with warmer. She continues with the duloxetine, Keppra, tizanidine and topiramate for her chronic left lower leg pain. Active Problems 1. Acute thoracic back pain (724.1) (M54.6) 2. 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 Complex regional pain syndrome type 1 of left lower extremity (337.22) (G90.522) 4. CRPS (complex regional pain syndrome) (355.9) 5. CRPS (complex regional pain syndrome), lower limb (337.22) (G90.529) 6. Leg pain, diffuse, left (729.5) (M79.605) 7. Lumbar radiculitis (724.4) (M54.16) 8. Other chronic pain (338.29) (G89.29) 9. Pain in unspecified limb (729.5) (M79.609) 10. Reflex sympathetic dystrophy of lower extremity (337.22) [...] Hannah Costa; 04/03/2012 11:46:50 AM Current Meds Abilify 5 MG Oral Tablet;Therapy: 03Mrt6359 to RecordedFormulary Override Reason: No Formulary Equivalent Exists Bydureon 2 MG PEN;Therapy: 60Zji9292 to Recorded Compazine CPCR;Therapy: (Recorded:49Tus3782) to Recorded DULoxetine HCl - 30 MG Oral Capsule Delayed Release Particles; TAKE 1 CAPSULEDAILY along with the 60 mg capsule for TDD to be 90 mg workers compensationMDD:1;Therapy: 09Yph3242 to (Evaluate:54Rba1511) Requested for: 83Cep9412 Recorded DULoxetine HCl - 60 MG Oral Capsule Delayed Release Particles; TAKE 1 CAPSULEDAILY. workers compensation MDD:1;Therapy: 98Aaa7394 to (Evaluate:61Hjq8060) Requested for: 13Pls9579 Recorded Fluticasone Propionate 50 MCG/ACT Nasal Suspension;Therapy: 89Nlr7432 to Recorded hydrOXYzine HCl - 25 MG Oral Tablet; Take 3 at bedtime;Therapy: 20Nof1669 to Recorded KlonoPIN 1 MG Oral Tablet;Therapy: 34Gxq3034 to RecordedFormulary Override Reason: No Formulary Equivalent Exists levETIRAcetam 500 MG Oral Tablet; TAKE 1 TABLET TWICE DAILY DIRECTED.WORKERS COMPENSATION MDD:2;Therapy: 59Orw3794 to (Evaluate:09Bnp6190) Requested for: 27Xec1720 RecordedFormulary Override Reason: No Formulary Equivalent Exists Levocetirizine Dihydrochloride 5 MG Oral Tablet;Therapy: (Recorded:44Cix6053) to Recorded Losartan Potassium 25 MG Oral Tablet;Therapy: 74Dty4442 to Recorded metFORMIN HCl - 1000 MG Oral Tablet;Therapy: 02Jan2013 to Recorded Montelukast Sodium 10 MG Oral Tablet;Therapy: 14Zir0703 to Recorded Multi Vitamin/Minerals TABS;Therapy: (Recorded:14Vtu1463) to Recorded PriLOSEC 40 MG CPDR;Therapy: (Recorded:82Ukr3077) to Recorded Simvastatin 40 MG Oral Tablet;Therapy: (Recorded:14Nub4720) to Recorded tiZANidine HCl - 2 MG Oral Tablet; TAKE 1-2 TABLETS AT HS NEEDED FOR SPASMWORKERS COMPENSATION MDD:2;Therapy: 75Iqd2820 to (Evaluate:07Dec2021) Requested for: 02Cqf7979 Recorded Topiramate 50 MG Oral Tablet; ONE PO EVERY HS WORKERS COMPENSATION MDD:1;Therapy: 22Dec2011 to (Evaluate:07Dec2021) Requested for: 20Lbt0602 Recorded Toujeo SoloStar 300 UNIT/ML Subcutaneous Solution Pen- injector;Therapy: 27Dec2017 to RecordedFormulary Override Reason: No Formulary Equivalent Exists traZODone HCl - 100 MG Oral Tablet;Therapy: 32Yox0572 to Recorded Vitamin C TABS;Therapy: (Recorded:71Hbl9156) to Recorded Vitamin D CAPS;Therapy: (Recorded:84Qaj5342) to Recorded Zofran TABS;Therapy: (Recorded:73Cha7128) to Recorded ZyrTEC Allergy 10 MG Oral Tablet;Therapy: 58Xlb7569 to Recorded Past Medical History Denied: History of Currently Denied: History of Depression Denied: History of blood coagulation disorder History of diabetes mellitus (V12.29) (Z86.39) History of malignant neoplasm of breast (V10.3) (Z85.3) History of Reflex sympathetic dystrophy of lower extremity (337.22) (G90.529) History of Sinus Tachycardia (427.89) Denied: History of Taking Blood Thinners Surgical History History of Foot S urgery History of Gastric Surgery For Morbid Obesity Bypass With Caitlin-en-Y Denied: History of Implantable Cardioverter-Defibrillator History of Neck Surgery fusion History of Neuroplasty Decompression Median Nerve At Carpal Tunnel History of Neuroplasty Of Ulnar Nerve Left Hand History of Neurostimulator device insertion Denied: History of Permanent Pacemaker Type History of Tonsillectomy History of Venous access port placement History of Wrist Surgery VitalsVital Signs Recorded: 10Jun2021 12:51PM Height: 5 ft 4 inWeight: 239 lb BMI Calculated: 41.02 kg/m2BSA Calculated: 2.11Systolic: 126, SittingDiastolic: 88, SittingHeart Rate: 75Respiration: 16Height measured w/wo shoes: w/shoesPain Scale: 3 Physical ExamGeneral: The patient is a well nourished/well developed, female, heavy set, who is in no acute distress and appears stated age. Gait and Station: Gait was normal. The patient can get on/off the table without assistance. Psychological: Alert and oriented to person, place and time. Mood and affect are pleasant and appropriate. Judgement intact. Insight normal without delusions or hallucinations. left lower leg is normal in appearance. No allodynia or hyperpathia noted today. Skin is normal to touch. Assessment 1. Leg pain, diffuse, left (729.5) (M79.605) 2. Other chronic pain (338.29) (G89.29) 3. CRPS (complex regional pain syndrome), lower limb (337.22) (G90.529) Plan 1. MIPS - Survey Evaluation Evaluation Status: Complete Done: 82Ear0703Zwygzh Depression Screening - Patient's PHQ-9 score is: : N/A - PHQ-9 not performed todayHave you EVER received a Pneumococcal Vacci ne...? : Yes - Patient has previously received a Pneumococcal vaccinationFLU - Have you received a flu shot in 2020 ? : No - Influenza not previously received due to patient declined or other patient reasonsBMI for Patients 18 and over : 25 or greater, BMI above normal parameters, follow-up plan documentedDo you use any kind of Tobacco? (smokes or uses smokeless tobacco): : Patient identified as a NON-Tobacco User<OBX.5.1><OBX.5.1.1>WOMEN </OBX.5.1.1><OBX.5.1.2> ANYONE >/= 65 - How many times in the past year have you had 4 or more</OBX.5.1.2></OBX.5.1> drinks in a day? : ZeroMEN < 65 - How many times in the past year have you had 5 or more drinks in a day? : N/A 2. Follow-up in 3 months Follow Up Follow-up Status: Complete Done: 23Zpd2427 Schedule Appointment for 15 or 30 minutes : Schedule 15 minute appointment Treatment includes: PROCEDURE(S): The patient defers blocks/procedures at this time FOLLOW UP: The patient should have a follow up visit in 3 months. - [employer]: The patient was counseled on the following: treatment plan. TIme:. Time: (including talking to Sudarshan chase on file and speaking to Wang to verify insurance. ) Start time: 12:56 P.M. End time: 1:31. P.M. Discussion/SummaryPatient has chronic left leg pain from a workers compensation injury date of 03/09/04.She injured her left patella at work but no surgery was needed. Her pain is constantly there with it increasing with the colder weather and is better with warmer. She continues with the duloxetine, Keppra, tizanidine and topiramate for her chronic left lower leg pain. Patient mentioned that Dr. Bauer said I could have them back in March, however, he did not send a script Patient does understand that with workers compensation, controlled substances are not on their formulary. she said that's ok, I can pay for it or put it under my private insurance. I did inform her that she can't do that since this is under workers compensation. Patient also had her controlled substances revoked.I did ask her if she is putting her other medication we are writing through workers compensation and she stated yes. I called the pharmacy and spoke to Wang who thinks the medications are going through workers compensation since it is going through script care. No refills needed today. SHe will follow up in 3 months or sooner if needed. Patient is in agreement with the treatment plan. Work / School NotePATIENT: if you submit [...] Disability rating is 67 %. Dragon DisclaimerNYSWC ResponseTap (formerly [employer]) Disclaimer: This document was dictated and electronically signed using britebill Speaking software. A reasonable attempt at proof reading has been made to minimize errors. Please call with any questions. Signatures Electronically signed by : Jude Mukherjee PA-C; Jun 10 2021 4:05PM EST (Author) Electronically signed by : Kassie Sharpe MD; Jun 10 2021 4:21PM EST Name Value Range Interpretation Code Description Data Melissa rce(s) Supporting Document(s) ID Date Data Source [id number] 06/04/2021 01:38:00 PM EDT [facility] Name Value Range Interpretation Code Description Data Melissa rce(s) Supporting Document(s) SARS COVID ANTIGEN NEGATIVE [facility] This lab was ordered by YUE jackson nd reported by [facility]. ID Date Data Source [id number] 06/04/2021 01:31:00 PM EDT [facility] Name Value Range Interpretation Code Description Data Melissa rce(s) Supporting Document(s) SARS-CoV-2 (COVID-19) RNA [Presence] in Respiratory specimen by ALIA with probe detection Not Detected [facility] This lab was ordered by [facility] and reported by [facility]. ID Date Data Source [id number] 05/28/2021 02:14:[address] [facility] PCName: Kristen umanzor Pedro LuisDOB: 1970Provider: Master Bauer: 03/31/2021 Chief ComplaintLower limb pain. Chief Complaint 2 MA completing section: Omer Lozano CNA Established IntakePatient was asked and denies having any tests since their last visit Patient was asked and denies seeing any physicians since their last visit. At today's visit patient presents with their Self . Patient is not currently working. Implanted Devices The patient has the following implanted device(s): . Glucose Monitor Device The patient does not have a glucose monitoring device. The patient is being seen for a follow-up with . History of Present IllnessHistory of Present Illness WC DOI 03/09/2004The patient reports left leg, knee to ankle pain. She rates the VAS intensity up to 10/10, with most days rating a 4/5. Interval History: This is a pleasant 50-year-old female who sustained a fractured patella in 2008 and subsequently developed Complex Regional Pain Syndrome. She has a spinal cord stimulator that was placed in 2017. This controls the pain in her lower limb most of the time. She has had a rough year. Recently, she has seen a psychiatrist for depression. She had a suicide attempt by trying to overdose on insulin. She has recently seen a psychiatrist who placed her on Klonopin. She claims that her stressors have improved and she feels much better; however, her opiates privileges were appropriately removed secondary to the suicide attempt. Active Problems 1. Acute thoracic back pain [...] Hannah Costa; 04/03/2012 11:46:50 AM Current Meds Abilify 5 MG Oral Tablet;Therapy: 06Nov2020 to RecordedFormulary Override Reason: No Formulary Equivalent Exists Bydureon 2 MG PEN;Therapy: 27Abw5959 to Recorded DULoxetine HCl - 30 MG Oral Capsule Delayed Release Particles; TAKE 1 CAPSULEDAILY along with the 60 mg capsule for TDD to be 90 mg MDD:1;Therapy: 12Npk6419 to (Evaluate:98Rqe1018) Requested for: 70Nms1764; LastRx:49Tlo2462 Ordered DULoxetine HCl - 60 MG Oral Capsule Delayed Release Particles; TAKE 1 CAPSULEDAILY. MDD:1;Therapy: 68Low5785 to (Evaluate:96Sqj2685) Requested for: 47Lvo8155; LastRx:61Shx8990 Ordered Fluticasone Propionate 50 MCG/ACT Nasal Suspension;Therapy: 35Fej1263 to Recorded hydrOXYzine HCl - 25 MG Oral Tablet; Take 3 at bedtime;Therapy: 50Cil7370 to Recorded KlonoPIN 1 MG Oral Tablet;Therapy: 60Hkx1976 to RecordedFormulary Override Reason: No Formulary Equivalent Exists levETIRAcetam 500 MG Oral Tablet; take 1 tablet po qday for 1 week then increase to 1tab po bid MDD:2 tabs;Therapy: 08Jan2021 to (Evaluate:11Swt4837) Requested for: 11Mar2021; LastRx:11Mar2021 OrderedFormulary Override Reason: No Formulary Equivalent Exists Levocetirizine Dihydrochloride 5 MG Oral Tablet;Therapy: (Recorded:47Coo5545) to Recorded Losartan Potassium 25 MG Oral Tablet;Therapy: 05Hce3992 to Recorded metFORMIN HCl - 1000 MG Oral Tablet;Therapy: 02Jan2013 to Recorded Montelukast Sodium 10 MG Oral Tablet;Therapy: 25Zul8974 to Recorded Multi Vitamin/Minerals TABS;Therapy: (Recorded:25Cgo9487) to Recorded PriLOSEC 40 MG CPDR;Therapy: (Recorded:29Xne8335) to Recorded Simvastatin 40 MG Oral Tablet;Therapy: (Recorded:98Stj0592) to Recorded tiZANidine HCl - 2 MG Oral Tablet; TAKE 1-2 TABLETS AT HS NEEDED FOR SPASMMDD:2;Therapy: 27Atm3957 to (Evaluate:40Yfi6626) Requested for: 07Sep2020; LastRx:07Sep2020 Ordered Topiramate 50 MG Oral Tablet; ONE PO EVERY HS MDD:1;Therapy: 22Dec2011 to (Evaluate:68Bid8031) Requested for: 07Sep2020; LastRx:07Sep2020 Ordered Toujeo SoloStar 300 UNIT/ML Subcutaneous Solution Pen-injector;Therapy: 27Dec2017 to RecordedFormulary Override Reason: No Formulary Equivalent Exists traZODone HCl - 100 MG Oral Tablet;Therapy: 23Udg4883 to Recorded Vitamin C TABS; Therapy: (Recorded:87Akc2427) to Recorded ZyrTEC Allergy 10 MG Oral Tablet;Therapy: 01Yew1389 to Recorded Past Medical History Denied: History [...] of Neuroplasty Of Ulnar Nerve Left Hand History of Neurostimulator device insertion Denied: History of Permanent Pacemaker Type History of Tonsillectomy History of Wrist Surgery VitalsVital Signs Recorded: 31Mar2021 02:01PM Height: 5 ft 4 inWeight: 238 lb BMI Calculated: 4 0.85BSA Calculated: 2.11Systolic: 125Diastolic: 88Heart Rate: 78Respiration: 16Pain Scale: 5 Physical ExamPhysical Exam:. This is a well-developed, well- nourished, overweight female, who appears approximate stated age and in no acute NAD.OTHER:The left limb below the knee is cold, pale, and atrophied. She has some edema in the left foot. There is atrophy in the left lower limb in the left calf and the left ankle regions. There is allodynia without hyperpathia. Assessment 1. CRPS (complex regional pain syndrome), lower limb (337.22) (G90.529) 2. 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 MIPS - Survey Evaluation Evaluation Status: Complete Done: 56Cod8315Zamhgo Depression Screening - Patient's PHQ-9 score is: : 0 - 4 none ...No fup plan neededHave you EVER received a Pneumococcal Vaccine...? : Yes - Patient has previously received a Pneumococcal vaccinationFLU - Have you received a flu shot in 2020 ? : Yes - Influenza immunization previously receivedBMI for Christy ents 18 and over : 25 or greater, BMI above normal parameters, follow-up plan documentedDo you use any kind of Tobacco? (smokes or uses smokeless tobacco): : Patient identified as a NON-Tobacco User<OBX.5.1><OBX.5.1.1>WOMEN </OBX.5.1.1><OBX.5.1.2> ANYONE >/= 65 - How many times in the past year have you had 4 or more</OBX.5.1.2></OBX.5.1> drinks in a day? : N/AMEN < 65 - How many times in the past year have you had 5 or more drinks in a day? : Zero 2. Follow-Up with Original Provider Follow Up Follow-up Status: Complete Done: 53Zov5582Jwtizozw Appointment for 15 or 30 minutes : Schedule 15 minute appointmentSchedule With: : Denise Sharpechedule : Follow-up in 2 months Patient was counseled on all of the following: Medications: The patient will begin hydrocodone 5/325 mg with a maximum daily dose of 1. I dispensed 30 tablets. She will continue levetiracetam. She will continue duloxetine. She will continue tizanidine and topiramate. She will continue trazodone. [employer] was consulted by my designee and I have reviewed the information presented to me and find no aberrant compliance issues. Patient has been informed. GENERAL MEDICATIONS: I advised the patient today/previously regarding treatment with the above medication(s). The risks, benefits, common side effects and alternative treatments were discussed with the patient. The provider verbalized with the patient. The patient verbalized understanding and was told to call if there were any untoward effects. ANTI-DEPRESSANT: I advised the patient today/previously regarding treatment with the above antidepressant(s). Patient is aware of rare but serious risk of potential suicidal thoughts, worsening depression, and/or serotonin syndrome. Patient agrees to discontinue medication and to contact [place], friend(s) or family member(s), and/or [facility] if this occurs. Nerve Blocks: ASIPP Risk Stratification of Patients presenting for Interventional Pain Procedures: Decreasing Morbidity of COVID-19 Points: 1Points: 0Points: 2Points: 3Points: 2Points: 0Points: 0Points: 0Total Points: 8 According to the Covid-19 ASIPP guidelines and the medical history as relayed to me by the patient, the Covid-19 risk stratification is medium. - ACTIVITY COUNSELING: Discussed use of stationary/recumbent bike and/or continue exercises and stretches patient may have learned at PT. Patient encouraged to increase daily physical activity including ergonomics and aerobic activity (BMI is 40.8). Discussion/SummaryThe patient is a 50-year-old female who is alert, oriented, and upbeat on today's visit. She is experiencing significant pain since her opiates were discontinued. She was barely taking her maximum dose at that time. At this point, we will reinstitute hydrocodone at 1 tablet per day. She will follow up in 60 days. Work / School NotePATIENT: if you [...] permanent disability. Disability rating is 67 %. ScribeNYSW Scribe Detail Form: Bianca Brunson . ([facility] Signatures Electronically signed by : Angel Bauer MD; Apr 02 2021 1:48PM EST Name Value Range Interpretation Code Description Data Melissa rce(s) Supporting Document(s) ID Date Data Source Basic Metabolic Profile (BMP) 03/30/2021 12:00:00 AM EDT eCW 1 ([facility]) Name Value Range Interpretation Code Description Data Melissa rce(s) Supporting Document(s) 140 70-100 GLUCOSE, FASTING eCW1 ([facility]) 139 136-145 SODIUM LEVEL eCW1 ([facility]) > 60.0 >51 GLOMERULAR FILTRATION RATE eCW 1 ([facility]) 11 7-18 BLOOD UREA NITROGEN eCW1 ([facility]) 0.72 0.55-1.30 CREATININE FOR GFR eCW1 ([facility]) 107 98-107 CHLORIDE LEVEL eCW1 ([facility]) 4.5 3.5-5.1 POTASSIUM SERUM eCW1 ([facility]) 27 21-32 CARBON DIOXIDE LEVEL eCW1 ([facility]) 9.1 8.5-10.1 CALCIUM LEVEL eCW1 ([facility]) ID Date Data Source [id number] 03/30/2021 10:33:00 AM EDT [facility] Surgical Pathology Report See Addendum B Rocco: JENA MANCINIMRN: [id number] Number: [id number] Date: 03/26/2021 00:00Received Date: 03/26/2021 14:32Physician(s): FABIENNE MOLINA,DO ALVARES,MAG RESENDEZpecimen(s) ReceivedA: Material received for consultation, [facility], [id number] HistoryDo ER, MA, HER2. Do FISH is HER2 is equivocal.Addendum 04/06/2021 RESULTS OF MOLECULAR ASSAYTEST: FISH FOR HER2 (ERBB2) Amplification.FISH (fluorescence in-situ hybridization) for HER2 (ERBB2) was performedat the [facility], [facility]. The pathologist's interpretation is as follows:INTERPRETATION:POSITIVE FOR HER2 (ERBB2) GENE AMPLIFICATION. (See report [id number])./pws Addendum Electronically Signed By: Rohan Villa M.D. 04/16/2021 DiagnosisIMMUNOHISTOCHEMISTRY, RIGHT BREAST BIOPSY ([id number], 03/24/21) INVASIVEDUCTAL CARCINOMA- ESTROGEN RECEPTORS: Positive (strong, moderate, 100%).PROGESTERONE RECEPTORS: Positive (strong, 100%).HER2: Equivocal (2+); FISH pending (addendum report will follow). Electronically Signed By Rohan Adams M.D., Attending Pathologist03/30/2021 10:33:47 Unless 'gross-only' is specified, the final diagnosis is based on amicroscopic examination of visitor services representative sections of tissue.Gross DescriptionReceived [facility] [place], [place], is 1 paraffin block,labeled [id number], with the corresponding pathology report. This report may include one or more immunohistochemical stain results thatuse analyte specific reagents. All positive and negative controls havebeen reviewed by the attending pathologist and are satisfactory. The testswere developed and their performance characteristics determined by [facility] Pathology department. They have not been cleared or approved by the USFood and Drug Administration. The FDA has determined that such clearanceor approval is not necessary. Name Value Range Interpretation Code Description Data Melissa rce(s) Supporting Document(s) ID Date Data Source [id number] 04/05/2021 04:28:00 PM [facility] Anatomic Molecular Pathology ReportName: JENA MANCINIPanchoMRN: [id number] Number: [id number] Date: 03/26/2021 00:00Received Date: 03/30/2021 15:36Physician(s): FABIENNE MOLINA,FABIENNE DESAI,Pavan To:DIPTI ALVARESPLAINVIEW HOSPITALpecimen(s) ReceivedA: Material rec'd for consultation, Formalin Block [id number] ([id number]'d from [facility] in [place], [place]) Fyc4Vyo by FISHDiagnosisTEST:HER2 (ERBB2) by FISH (Fluorescence in situ Hybridization).fRESULT: INITIAL PROBE RESULT:RATIO of HER2 (ERBB2) to CEP17 (D17Z1) is 6.5Average HER2 (ERBB2) copy number per cell is1.5International System for Cytogenetic Nomenclature: nucish(D17Z1,HER2)x1~13 [40]FINAL IHC-GUIDED PROBE RESULT:RATIO of HER2 (ERBB2) to CEP17 (D17Z1) is 6.2Average HER2 (ERBB2) copy number per cell is1.2International System for Cytogenetic Nomenclature: nucish(D17Z1,HER2)x1~8 [20]fINTERPRETATION:POSITIVE FOR HER2 (ERBB2) GENE AMPLIFICATION.fIHC-guided FISH counts are performed and show 50% of tumor cells withaverage of HER2 and CEP17 copies per cell in breast cancer of 6.2 and 4.9respectively, which makes a ratio of HER2 to CEP17 1.2. Based on currentASCO/CAP guideline recommendations for HER2 testing in breast cancer,dual-probe in situ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); Complete vkTime: :21 Order name: EKG.; Complete Time: 13:45 [id number] Medications:No medications were administeredSignatures:Dispatcher [employer] Sowmya Pickering RN RN klpDowDeborah RN ALLYN is0IiplheaOpal brown MD MD vk Name Value Range Interpretation Code Description Data Melissa rce(s) Supporting Document(s) ID Date Data Source [id number] 10/29/2020 10:47:00 PM EST [facility] Name Value Range Interpretation Code Description Data Melissa rce(s) Supporting Document(s) SARS coronavirus 2 RNA [Presence] in Res piratory specimen by ALIA with probe detection NEGATIVE NYSDOH This lab was ordered by [facility] a nd reported by [facility]. ID Date Data Source [id number] 10/26/2020 06:43:00 PM EST [facility] Name Value Range Interpretation Code Description Data Melissa rce(s) Supporting Document(s) Creatinine,Urine Normal (applies to non-numeric results) [facility] Interpret with care as there is no estab lished reference range associated with this assay's methodology that pertains to this particular sex and/or age. Microalbumin,Urine <1.7 Above high normal [facility] Albumin/Creatinine Ratio,Urine Normal (applies to non-numeric results) [facility] Test Performed By: [facility] [address] [place] [address] Director: Cameron Corona MD Reference Ranges for Microalbumin,spot: Normal <30 ug/mg creatinine Microalbuminuria 30-300 ug/mg creatinine Clinical Albuminuria >300 ug/mg creatinine ID Date Data Source [id number] 10/26/2020 07:17:00 PM [facility] Name Value Range Interpretation Code Description Data Melissa rce(s) Supporting Document(s) UMALB Urine Creatinine result Normal (applies t o non-numeric results) [facility] Interpret with care as there is no estab lished reference range associated with this assay's methodology that pertains to this particular sex and/or age. UMALB Microalbumin,Ur result <1.7 [place] [facility] UMALB Alb/Cre Ratio,Ur result Normal (applies t o non-numeric results) [facility] Test Performed By: [facility] [address] [place] [address] Director: Cameron Corona MD Reference Ranges for Microalbumin,spot: Normal <30 ug/mg creatinine Microalbuminuria 30-300 ug/mg creatinine Clinical Albuminuria >300 ug/mg creatinine ID Date Data Source [id number] 10/26/2020 02:27:00 PM [facility] Name Value Range Interpretation Code Description Data Melissa rce(s) Supporting Document(s) Hemoglobin A1c 4.4-6.2 Above high normal [facility] Estimated Avg Glucose 192 mg/dL 126-240 Normal (applies to non-numeric results) [facility] ID Date Data Source [id number] 10/26/2020 02:27:00 PM [facility] Name Value Range Interpretation Code Description Data Melissa rce(s) Supporting Document(s) Sodium 137 mmol/L 136-145 Normal (applies to non-numeric resul ts) [facility] Potassium 3.5-5.1 Normal (applies to non-numeric resul ts) [facility] Chloride 101 mmol/L 98-107 Normal (applies to non-numeric resul ts) [facility] Carbon Dioxide CO2 21-32 Normal (applies to non-numer ic results) [facility] Anion Gap 5.0-16.0 Normal (applies to non-numeric resul ts) [facility] BUN 10 mg/dL 7-18 Normal (applies to non-numeric results) [facility] Creatinine,Serum 0.7-1.2 Normal (applies to non-numeric results) [facility] GFR >60 Normal (applies to non-numeric results) [facility] Glucose Level 297 mg/dL 60-99 Above high normal [facility] Reference range is only applicable when patient is fasting Note the following drug interference: Sulfasalazine Sulfapyridine Can see falsely depressed Can see falsely elevated result with up to 17% results with up to 11% decrease in measurement increase in measurement Recommend patients be collected for this test prior to administration of either drug. Calcium 8.5-10.1 Normal (applies to non-numeric resul ts) [facility] Bilirubin,Total 0.1-1.9 Normal (applies to non-numeric results) [facility] SGOT(AST) 14 U/L 15-37 Below low normal [facility] Note the following drug interference: Sulfasalazine Sulfapyridine Can see falsely depressed Can see falsely elevated result with up to 10% results with up to 10% decrease in measurement increase in measurement Recommend patients be collected for this test prior to administration of either drug. SGPT(ALT) 25 U/L 12-78 Normal (applies to non-numeric resul ts) [facility] Note the following drug interference: Sulfasalazine Sulfapyridine Can see falsely depressed Can see falsely elevated result with up to 29% results with up to 10% decrease in measurement increase in measurement Recommend patients be collected for this test prior to administration of either drug. Alkaline Phosphatase 154 U/L 38-126 Above high normal [facility] can increase Alkaline Phosp le vels up to 2 times the normal adult value. Normal values for children and adolescents are 2 to 3 times the normal adult value. Total Protein 6.0-8.2 Normal (applies to non-numeric re sults) [facility] Albumin Level 3.4-5.0 Normal (applies to non-numeric re sults) [facility] ID Date Data Source [id number] 10/26/2020 02:27:00 PM [facility] Name Value Range Interpretation Code Description Data Melissa rce(s) Supporting Document(s) Triglycerides 190 mg/dL <150 Above high normal [facility] Cholesterol 155 mg/dL 100-200 Normal (applies to non-numeric resu lts) [facility] LDL Cholesterol Calculated 77 0-130 Normal (applies to n on-numeric results) [facility] HDL Cholesterol 40 mg/dL 40-60 Normal (applies to non-numeric results) [facility] Cholesterol/HDL Ratio 3.6-6.7 Normal (applies to non-nu meric results) [facility] ID Date Data Source [id number] 10/26/2020 01:21:00 PM [facility] Name Value Range Interpretation Code Description Data [facility]) Supporting Document(s) White Blood Count 3.5-10.5 Normal (applies to non-numeri c results) [facility] Red Blood Count 3.90-5.00 Normal (applies to non-numeric results) [facility] Hemoglobin 12.0-15.5 Normal (applies to non-numeric resul ts) [facility] Hematocrit 34.9-44.5 Normal (applies to non-numeric resul ts) [facility] Mean Corpuscular Volume 81.2-95.1 Normal (applies to non- numeric results) [facility] Mean Corpuscular Hgb 25.6-32.2 Normal (applies to non-num judy results) [facility] Mean Corpuscular Hgb Conc 32.0-36.0 Normal (applies to no n-numeric results) [facility] Red Cell Distribution Width 11.9-15.5 Normal (appli es to non-numeric results) [facility] Platelet Count 337 x10 3/uL 150-450 Normal (applies to non-numeric results) [facility] Mean Platelet Volume 9.4-12.4 Normal (applies to non-num judy results) [facility] Neutrophils% (Auto) 31.0-71.0 Normal (applies to non-nume renae results) [facility] Lymphocytes% (Auto) 20.0-55.0 Normal (applies to non-nume renae results) [facility] Monocytes% (Auto) 4.0-12.0 Normal (applies to non-numeri c results) [facility] Eosinophils% (Auto) 1.0-8.0 Normal (applies to non-nume renae results) [facility] Basophils% (Auto) 0.0-2.0 Normal (applies to non-numeri c results) [facility] Immature Granulocytes% (Auto) 0.0-2.0 Normal (syed lies to non-numeric results) [facility] Neutrophils# (Auto) 1.50-6.20 Above high normal [facility] Lymphocytes# (Auto) 1.20-4.00 Normal (applies to non-nume renae results) [facility] Monocytes# (Auto) 0.00-0.90 Normal (applies to non-numeri c results) [facility] Eosinophils# (Auto) 0.00-0.50 Normal (applies to non-nume renae results) [facility] Basophils# (Auto) 0.00-0.20 Normal (applies to non-numeri c results) [facility] Immature Granulocytes# (Auto) 0.00-7.00 No rmal (applies to non-numeric results) [facility] ID Date Data Source [id number] 10/19/2020 12:00:00 AM EST [facility] Name Value Range Interpretation Code Description Data [facility] Supporting Document(s) [facility] was ordered by [facility] and reported by [facility]. ID Date Data Source [id number] 10/10/2020 12:00:00 AM EST [facility] Name Value Range Interpretation Code Description Data Melissa rce(s) Supporting Document(s) SARS coronavirus 2 RNA [Presence] in Res piratory specimen by ALIA with probe detection NEGATIVE [facility] This lab was ordered by [facility] and reported by [employer]. ID Date Data Source [id number] 10/10/2020 12:00:00 AM EST [facility] Name Value Range Interpretation Code Description Data Melissa rce(s) Supporting Document(s) Carestart Rapid COVID Antigen Test [facility] This lab was reported by Yoanna shaffer. ID Date Data Source [id number] 09/07/2020 03:53:[address] [facility] PCName: Kristen umanzor GoodwinDOB: 1970Provider: Dell BhargaviaDOS: 09/07/2020 Chief Complaintchronic left leg pain Chief Complaint 2NYSW VAS PAIN Established: SHANAE completing section: Moraima [employer] History of Present IllnessRecent test/procedures: Patient was asked and denies having any tests since their last visit. Patient was asked and denies being seen by any Physicians since their last visit. The patient was last seen by a [facility] provider on 08/07/2020. At [...] Current Meds Bydureon 2 MG Subcutaneous Pen-injector;Therapy: 65Lpd4240 to Recorded DULoxetine HCl - 30 MG Oral Capsule Delayed Release Particles; TAKE 1 CAPSULEDAILY along with the 60 mg capsule for TDD to be 90 mg MDD:1;Therapy: 07Aug2020 to (Evaluate:05Nov2020) Requested for: 52Ljc4780; LastRx:[id number] Ordered DULoxetine HCl - 60 MG Oral Capsule Delayed Release Particles; TAKE 1 CAPSULEDAILY. MDD:1;Therapy: 22Dec2011 to (Evaluate:03Nov2020) Requested for: 82Gow5319; LastRx:73Pkw3554 Ordered Fluticasone Propionate 50 MCG/ACT Nasal Suspension;Therapy: 06Xhv1458 to Recorded HYDROcodone-Acetaminophen 5-325 MG Oral Tablet; one po daily prn pain MDD:1;Therapy: 59Ycz3774 to (Evaluate:06Sep2020) Requested for: 07Aug2020; LastRx:21Exx1538 OrderedLD 09/06/2020 hydrOXYzine HCl - 25 MG Oral Tablet; Take 3 at bedtime;Therapy: 48Tpt5993 to Recorded Levocetirizine Dihydrochloride 5 MG Oral Tablet;Therapy: (Recorded:23Rnv6299) to Recorded Losartan Potassium 25 MG Oral Tablet;Therapy: 13Vgr4991 to Recorded metFORMIN HCl - 1000 MG Oral Tablet;Therapy: 02Jan2013 to Recorded Montelukast Sodium 10 MG Oral Tablet;Therapy: 66Uzn4798 to Recorded Multi Vitamin/Minerals TABS;Therapy: (Recorded:98Rcl1277) to Recorded PriLOSEC 40 MG CPDR;Therapy: (Recorded:23Cpl9177) to Recorded Simvastatin 40 MG Oral Tablet;Therapy: (Recorded:15Hku9174) to Recorded tiZANidine HCl - 2 MG Oral Tablet; TAKE 1-2 TABLETS AT HS NEEDED FOR SPASMMDD:2;Therapy: 63Kyr4368 to (Evaluate:46Spv4210) Requested for: 24Mar2020; LastRx:24Mar2020 Ordered Topiramate 50 MG Oral Tablet; ONE PO EVERY HS MDD:1;Therapy: 22Dec2011 to (Evaluate:40Ggp8303) Requested for: 24Mar2020; LastRx:24Mar2020 Ordered Toujeo SoloStar 300 UNIT/ML Subcutaneous Solution Pen-injector;Therapy: 27Dec2017 to RecordedFormulary Override Reason: No Formulary Equivalent Exists traZODone HCl - 100 MG Oral Tablet;Therapy: 24Hxj4364 to Recorded Vitamin C TABS;Therapy: (Recorded:32Vns2599) to Recorded ZyrTEC Allergy 10 MG Oral Tablet;Therapy: 54Xhg5942 to Recorded Past Medical History Denied: History [...] History Current non-drinker of alcohol (V49.89) (Z78.9) 1u1209 Denied: History of Drug Use Former smoker (V15.82) (Z87.891) Marital History - Currently Not Currently 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 Renew: HYDROcodone-Acetaminophen 5-325 MG Oral Tablet (Tyler); one po daily prn pain MDD:1LD 09/06/2020 2. Renew: tiZANidine HCl - 2 MG Oral Tablet; TAKE 1-2 TABLETS AT HS NEEDED FOR SPASM M DD:2 3. Renew: Topiramate 50 MG Oral Tablet; ONE PO EVERY HS MDD:1 4. Other Supply; Status:Complete; Done: 49Cjo8371Gqgd Health Aide 3-4 times a week to [...] date (2 days +/- either way): : [id number] In my opinion based on subjective and objective findings from today's visit the patient is status quo. Medication:. Medication list was reviewed with the patient, and updates were made to reflect her current medication regimen. Allergy list was reviewed with patient, and any necessary changes were made. [facility] [employer] Information: [employer] was consulted by my designee and I [...] sign and comply with all of the [facility] terms of a controlled substance treatment and agreement.Antidepressants Prescribed: DULOXETINE . ANTI-DEPRESSANT: I advised the patient today/previously regarding treatment with the above antidepressant(s). Patient is aware of rare but serious risk of potential suicidal thoughts, worsening depression, and/or serotonin syndrome. Patient agrees to discontinue medication and to contact [facility], friend(s) or family member(s), and/or [facility] if this occurs. The patient is [...] and encouraged. 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 Creatinine [...] Bydureon 2 MG Subcutaneous Pen- injector; Therapy: 49Rnk5718 to Recorded 2. DULoxetine HCl - 60 MG Oral Capsule Delayed Release Particles; TAKE 1 CAPSULE DAILY. MDD:1; Therapy: 22Dec2011 to (Evaluate:03Nov2020) Requested for: 45Irm7300; Last Rx:63Hiw1638 Ordered 3. Fluticasone Propionate 50 MCG/ACT Nasal Suspension; Therapy: 19Hpd8614 to Recorded 4. HYDROcodone-Acetaminophen 5-325 MG Oral Tablet; one po daily prn pain MDD:1; Therapy: 11Krg4397 to (Evaluate:05Rqi0091) Requested for: 94Ahc3023; Last Rx:71Flt9883 Ordered 5. hydrOXYzine HCl - 25 MG Oral Tablet; Take 3 at bedtime; Therapy: 23Vms6370 to Recorded 6. Levocetirizine Di hydrochloride 5 MG Oral Tablet; Therapy: (Recorded:69Ioc3598) to Recorded 7. Losartan Potassium 25 MG Oral Tablet; Therapy: 68Kea8481 to Recorded 8. metFORMIN HCl - 1000 MG Oral Tablet; Therapy: 02Jan2013 to Recorded 9. Montelukast Sodium 10 MG Oral Tablet; Therapy: 77Cxs1202 to Recorded 10. Multi Vitamin/Minerals TABS; Therapy: (Recorded:20Dqx3893) to Recorded 11. PriLOSEC 40 MG CPDR; Therapy: (Recorded:01Bvk3510) to Recorded 12. Simvastatin 40 MG Oral Tablet; Therapy: (Recorded:53Gmw5674) to Recorded 13. tiZANidine HCl - 2 MG Oral Tablet; TAKE 1-2 TABLETS AT HS NEEDED FOR SPASM MDD:2; Therapy: 15Crq3426 to (Evaluate:89Xay2572) Requested for: 24Mar2020; Last Rx:37Tur0880 Ordered 14. Topiramate 50 MG Oral Tablet; ONE PO EVERY HS MDD:1; Therapy: 22Dec2011 to (Evaluate:97Bjg8195) Requested for: 22Wjm5394; Last Rx:92Okk3762 Ordered 15. Toujeo SoloStar 300 UNIT/ML Subcutaneous Solution Pen-injector; Therapy: 56Pfu7784 to Recorded 16. traZODone HCl - 100 MG Oral Tablet; Therapy: 27Wuz8662 to Recorded 17. Vitamin C TABS; Therapy: (Recorded:90Wty6564) to Recorded 18. ZyrTEC Allergy 10 MG Oral Tablet; Therapy: 75Xvo8526 to Recorded Allergies Iodinated Contrast Media Hives; [...] agrees to comply with all of the [facility] terms of a controlled [...] electronic false requests, deterring potential fraudulent behavior. [facility] [employer] Information: [employer] was consulted by my designee and I [...] Renew: HYDROcodone- Acetaminophen 5-325 MG Oral Tablet (Tyler); one po daily prn pain MDD: 3. UDS-LAB WC / NF ([facility] Urine Drug Screen); [Do Not Release]; Specimen Source:Urine; Status:In Progress - Specimen/Data Collected; Done: 3 [facility] Treatment Plan (2): In my opinion [...] and is considered standard of care. - [employer]: The patient was counseled on the following: [...] rce(s) Supporting Document(s) ID Date Data Source [id number] 07/07/2020 09:45:04 AM EDT [facility] PCName: Kristen ManciniDOB: 1970Provider: Bhargavi SharpeaDOS: 07/06/2020 Chief Complaintchronic left leg pain Chief Complaint 2NYSW VAS PAIN Established: MA completing section: CHAITANYA [employer] History of Present IllnessA Urine Drug Screen was ordered for Jena Mancini and collected on site today 07/06/2020. Creatinine [...] The patient was last seen by a [facility] provider on 05/15/2020. 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 MDD:1;Therapy: 22Dec2011 to (Evaluate:12Aug2020) Requested for: 81Fyi3324; LastRx:14Apr2020 Ordered Fluticasone Propionate 50 MCG/ACT Nasal Suspension;Therapy: 26Avk5168 to Recorded HYDROcodone-Acetaminophen 5-325 MG Oral Tablet; one po daily prn pain MDD:1;Therapy: 99Bxa2126 to (Evaluate:57Tzm1773) Requested for: 36Ech1898; LastRx:59Jcu5556 OrderedLD pt sts 2 weeks ago hydrOXYzine HCl - 25 MG Oral Tablet; Take 3 at bedtime;Therapy: 08Txy9826 to Recorded Levocetirizine Dihydrochloride 5 MG Oral Tablet;Therapy: (Recorded:23Voy5963) to Recorded Losartan Potassium 25 MG Oral Tablet;Therapy: 14Apr2020 to Recorded metFORMIN HCl - 1000 MG Oral Tablet;Therapy: 02Jan2013 to Recorded Montelukast Sodium 10 MG Oral Tablet;Therapy: 56Yyg9363 to Recorded Multi Vitamin/Minerals TABS;Therapy: (Recorded:66Lpm2355) to Recorded PriLOSEC 40 MG CPDR;Therapy: (Recorded:15Jan2016) to Recorded Simvastatin 40 MG Oral Tablet;Therapy: (Recorded:35Fpy8407) to Recorded tiZANidine HCl - 2 MG Oral Tablet; TAKE 1-2 TABLETS AT HS NEEDED FOR SPASMMDD:2;Therapy: 14Nov2012 to (Evaluate:39Nui4978) Requested for: 24Mar2020; LastRx:24Mar2020 Ordered Topiramate 50 MG Oral Tablet; ONE PO EVERY HS MDD:1;Therapy: 22Dec2011 to (Evaluate:68Ehh1905) Requested for: 24Mar2020; LastRx:24Mar2020 Ordered Toujeo SoloStar 300 UNIT/ML Subcutaneous Solution Pen-injector;Therapy: 27Dec2017 to RecordedFormulary Override Reason: No Formulary Equivalent Exists traZODone HCl - 100 MG Oral Tablet;Therapy: 17Itc8233 to Recorded Vitamin C TABS;Therapy: (Recorded:32Tza6419) to Recorded ZyrTEC Allergy 10 MG Oral Tablet;Therapy: 72Brz7004 to Recorded Past Medical History Denied: History [...] History Current non-drinker of alcohol (V49.89) (Z78.9) 5u0835 Denied: History of Drug Use Former smoker (V15.82) (Z87.891) Marital History - Currently Not Currently 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 Renew: HYDROcodone-Acetaminophen 5-325 MG Oral Tablet (Tyler); one po daily prn pain MDD:1LD pt sts 2 weeks ago 3. UDS-LAB WC / NF ([facility] Urine Drug Screen); [Do Not Release]; Specimen Source:Urine; Status:In Progress - Specimen/Data Collected; Done: 06Jul2020 4. 30 Day RX Management Follow-up Status: Hold For - Scheduling Requested for: 06Jul2020). Schedule (FUP) 60 days from today: : 73Zpq4898). Is an additional appointment needed....? : Yes). [...] patient, and any necessary changes were made. [facility] [employer] Information: [employer] was consulted by my designee and I [...] sign and comply with all of the [facility] terms of a controlled substance treatment and agreement.Antidepressants Prescribed: DULOXETINE . ANTI-DEPRESSANT: I advised the patient today/previously regarding treatment with the above antidepressant(s). Patient is aware of rare but serious risk of potential suicidal thoughts, worsening depression, and/or serotonin syndrome. Patient agrees to discontinue medication and to contact [facility], friend(s) or family member(s), and/or 1 [...] Weight loss was discussed and encouraged. 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 I am unaware if her [...] Code Description Data Melissa rce(s) Supporting Document(s) Procedure Social History Code Duration Value Status Description Data Source(s ) Smoking 08/24/2021 12:00:00 AM EST Former Smoker completed Former Smoker eCW1 ([facility]) Smoking 08/24/2021 12:00:00 AM EST Former Smoker completed Former Smoker eCW1 ([facility]) Smoking 08/24/2021 12:00:00 AM EST Former Smoker completed Former Smoker eCW1 ([facility]) Smoking 08/24/2021 12:00:00 AM EST Former Smoker completed Former Smoker eCW1 ([facility]) Smoking 08/20/2021 12:00:00 AM EST Former Smoker completed Former Smoker eCW1 ([facility]) Smoking 08/20/2021 12:00:00 AM EST Former Smoker completed Former Smoker eCW1 ([facility]) Smoking 07/06/2021 12:00:00 AM EDT Former Smoker completed Former Smoker eCW1 ([facility]) Smoking 07/06/2021 12:00:00 AM EDT Former Smoker completed Former Smoker eCW1 ([facility]) Smoking 07/06/2021 12:00:00 AM EDT Former Smoker completed Former Smoker eCW1 ([facility]) Smoking 07/06/2021 12:00:00 AM EDT Former Smoker completed Former Smoker eCW1 ([facility]) Smoking 07/06/2021 12:00:00 AM EDT Former Smoker completed Former Smoker eCW1 ([facility]) Smoking 06/04/2021 12:00:00 AM EDT Former Smoker completed Former Smoker eCW1 ([facility]) Smoking 05/21/2021 12:00:00 AM EDT Former Smoker completed Former Smoker eCW1 ([facility]) Smoking 05/21/2021 12:00:00 AM EDT Former Smoker completed Former Smoker eCW1 ([facility]) Smoking 03/29/2021 12:00:00 AM EDT Former Smoker completed Former Smoker eCW1 ([facility]) Smoking 03/29/2021 12:00:00 AM EDT Former Smoker completed Former Smoker eCW1 ([facility]) Smoking 03/29/2021 12:00:00 AM EDT Former Smoker completed Former Smoker eCW1 ([facility]) Smoking 03/29/2021 12:00:00 AM EDT Former Smoker completed Former Smoker eCW1 ([facility]) Smoking 03/29/2021 12:00:00 AM EDT Former Smoker completed Former Smoker eCW1 ([facility]) Smoking 03/29/2021 12:00:00 AM EDT Former Smoker completed Former Smoker eCW1 ([facility]) Smoking 03/29/2021 12:00:00 AM EDT Former Smoker completed Former Smoker eCW1 ([facility]) Smoking 03/29/2021 12:00:00 AM EDT Former Smoker completed Former Smoker eCW1 ([facility]) Smoking 03/29/2021 12:00:00 AM EDT Former Smoker completed Former Smoker eCW1 ([facility]) Smoking 03/24/2021 12:00:00 AM EDT Former Smoker completed Former Smoker eCW1 ([facility]) Smoking 03/15/2021 12:00:00 AM EDT Former Smoker completed Former Smoker eCW1 ([facility]) Smoking 03/15/2021 12:00:00 AM EDT Former Smoker completed Former Smoker eCW1 ([facility]) Smoking 03/15/2021 12:00:00 AM EDT Former Smoker completed Former Smoker eCW1 ([facility]) Smoking 03/03/2021 12:00:00 AM EDT Former Smoker completed Former Smoker eCW1 ([facility]) Smoking 03/03/2021 12:00:00 AM EDT Former Smoker completed Former Smoker eCW1 ([facility]) Smoking 02/18/2021 12:00:00 AM EDT Former Smoker completed Former Smoker eCW1 ([facility]) Smoking 02/18/2021 12:00:00 AM EDT Former Smoker completed Former Smoker eCW1 ([facility]) Smoking 01/19/2021 12:00:00 AM EDT Former Smoker completed Former Smoker eCW1 ([facility]) Smoking 01/19/2021 12:00:00 AM EDT Former Smoker completed Former Smoker eCW1 ([facility]) Smoking 01/19/2021 12:00:00 AM EDT Former Smoker completed Former Smoker eCW1 ([facility]) Smoking 01/19/2021 12:00:00 AM EDT Former Smoker completed Former Smoker eCW1 ([facility]) Smoking 11/27/2020 08:41:39 AM EST Never smoked tobacco (findi ng) completed Never smoked tobacco (finding) [facility] (Travon Borrego MD [facility]) Smoking 11/19/2020 12:00:00 AM EST Former Smoker completed Former Smoker eCW1 ([facility]) Smoking 11/19/2020 12:00:00 AM EST Former Smoker completed Former Smoker eCW1 ([facility]) Smoking 11/19/2020 12:00:00 AM EST Former Smoker completed Former Smoker eCW1 ([facility]) Smoking 11/19/2020 12:00:00 AM EST Former Smoker completed Former Smoker eCW1 ([facility]) Smoking 11/19/2020 12:00:00 AM EST Former Smoker completed Former Smoker eCW1 ([facility]) Smoking 11/19/2020 12:00:00 AM EST Former Smoker completed Former Smoker eCW1 ([facility]) Smoking 11/19/2020 12:00:00 AM EST Former Smoker completed Former Smoker eCW1 ([facility]) Smoking 11/19/2020 12:00:00 AM EST Former Smoker completed Former Smoker eCW1 ([facility]) Smoking 11/19/2020 12:00:00 AM EST Former Smoker completed Former Smoker eCW1 ([facility]) Smoking 11/19/2020 12:00:00 AM EST Former Smoker completed Former Smoker eCW1 ([facility]) Smoking 11/19/2020 12:00:00 AM EST Former Smoker completed Former Smoker eCW1 ([facility]) Smoking 11/19/2020 12:00:00 AM EST Former Smoker completed Former Smoker eCW1 ([facility]) Smoking 11/19/2020 12:00:00 AM EST Former Smoker completed Former Smoker eCW1 ([facility]) Smoking 11/19/2020 12:00:00 AM EST Former Smoker completed Former Smoker eCW1 ([facility]) Smoking 10/29/2020 12:00:00 AM EST Former Smoker completed Former Smoker eCW1 ([facility]) Smoking 10/29/2020 12:00:00 AM EST Former Smoker completed Former Smoker eCW1 ([facility]) Smoking 10/29/2020 12:00:00 AM EST Former Smoker completed Former Smoker eCW1 ([facility]) Smoking 10/21/2020 12:00:00 AM EST Former Smoker completed Former Smoker eCW1 ([facility]) Smoking 10/21/2020 12:00:00 AM EST Former Smoker completed Former Smoker eCW1 ([facility]) Smoking 10/21/2020 12:00:00 AM EST Former Smoker completed Former Smoker eCW1 ([facility]) Smoking 10/19/2020 12:00:00 AM EST Former Smoker completed Former Smoker eCW1 ([facility]) Smoking 10/16/2020 12:00:00 AM EST Former Smoker completed Former Smoker eCW1 ([facility]) Alcohol intake 09/07/2020 12:00:00 AM EST Yes completed [facility] Cigarette pack-years 09/07/2020 12:00:00 AM EST UNK completed [facility] Cigarettes smoked current (pack per day) - Reported 09/07/20 12:00:00 AM EST UNK completed [facility] Smoking 09/07/2020 12:00:00 AM EST Former smoker completed Former smoker [facility] Smoking 08/27/2020 12:00:00 AM EST Former Smoker completed Former Smoker eCW1 ([facility]) Smoking 08/27/2020 12:00:00 AM EST Former Smoker completed Former Smoker eCW1 ([facility]) Smoking 08/27/2020 12:00:00 AM EST Former Smoker completed Former Smoker eCW1 ([facility]) Smoking 08/27/2020 12:00:00 AM EST Former Smoker completed Former Smoker eCW1 ([facility]) Smoking 08/27/2020 12:00:00 AM EST Former Smoker completed Former Smoker eCW1 ([facility]) Smoking 08/27/2020 12:00:00 AM EST Former Smoker completed Former Smoker eCW1 ([facility]) Smoking 08/27/2020 12:00:00 AM EST Former Smoker completed Former Smoker eCW1 ([facility]) Smoking 08/27/2020 12:00:00 AM EST Former Smoker completed Former Smoker eCW1 ([facility]) Vital Signs ID Date Data Source UNK Name Value Range Interpretation Code Description Data Source(s) Body weight 233.4 [lb_av] 233.4 [lb_av] eCW1 ([facility]) Body weight 105.87 kg 105.87 kg eCW1 ([facility]) Body height 64 [in_i] 64 [in_i] eCW1 ([facility]) Body mass index (BMI) [Ratio] 40.06 kg/m2 40.06 kg/m2 eCW1 ([facility]) Heart rate 89 /min 89 /min eCW1 ([facility]) Respiratory rate 16 /min 16 /min eCW1 ([facility]) Body temperature 96.9 [degF] 96.9 [degF] eCW1 ( [facility]) Systolic blood pressure 141 mm[Hg] 141 mm[Hg] e CW1 ([facility]) Diastolic blood pressure 84 mm[Hg] 84 mm[Hg] eCW1 ([facility]) Body weight 236 [lb_av] 236 [lb_av] eCW1 ([facility]) Body height 64 [in_i] 64 [in_i] eCW1 ([facility]) Body mass index (BMI) [Ratio] 40.50 kg/m2 40.50 kg/m2 eCW1 ([facility]) Heart rate 94 /min 94 /min eCW1 (Formerly [facility], [facility]) Respiratory rate 18 /min 18 /min eCW1 ([facility]) Body temperature 98.7 [degF] 98.7 [degF] eCW1 ( [facility]) Systolic blood pressure 138 mm[Hg] 138 mm[Hg] e CW1 ([facility]) Diastolic blood pressure 89 mm[Hg] 89 mm[Hg] eCW1 ([facility]) Body height 64 [in_i] 64 [in_i] eCW1 ([facility]) Body weight 234.2 [lb_av] 234.2 [lb_av] eCW1 ([facility]) Body mass index (BMI) [Ratio] 40.20 kg/m2 40.20 kg/m2 eCW1 ([facility]) Respiratory rate 18 /min 18 /min eCW1 ([facility]) Systolic blood pressure 145 mm[Hg] 145 mm[Hg] e CW1 ([facility]) Diastolic blood pressure 95 mm[Hg] 95 mm[Hg] eCW1 ([facility]) Heart rate 97 /min 97 /min eCW1 (Formerly [facility], [facility]) Body temperature 97.2 [degF] 97.2 [degF] eCW1 ( [facility]) Body weight 235 [lb_av] 235 [lb_av] eCW1 (Formerly [facility]) Heart rate 95 /min 95 /min eCW1 (Formerly [facility], [facility]) Respiratory rate 17 /min 17 /min eCW1 ([facility]) Body weight 106.6 kg 106.6 kg eCW1 ([facility]) Body height 64 [in_i] 64 [in_i] eCW1 ([facility]) Body mass index (BMI) [Ratio] 40.33 kg/m2 40.33 kg/m2 eCW1 ([facility]) Body temperature 98.3 [degF] 98.3 [degF] eCW1 ( [facility]) Systolic blood pressure 115 mm[Hg] 115 mm[Hg] e CW1 ([facility]) Diastolic blood pressure 83 mm[Hg] 83 mm[Hg] eCW1 ([facility]) Body weight 240 [lb_av] 240 [lb_av] eCW1 (Formerly [facility]) Body weight 108.86 kg 108.86 kg eCW1 ([facility]) Body height 64 [in_i] 64 [in_i] eCW1 ([facility]) Body mass index (BMI) [Ratio] 41.19 kg/m2 41.19 kg/m2 eCW1 ([facility]) Heart rate 70 /min 70 /min eCW1 ([facility]ly [facility]) Respiratory rate 18 /min 18 /min eCW1 ([facility]) Body temperature 97.2 [degF] 97.2 [degF] eCW1 ( [facility]) Systolic blood pressure 136 mm[Hg] 136 mm[Hg] e CW1 ([facility]) Diastolic blood pressure 86 mm[Hg] 86 mm[Hg] eCW1 ([facility]) Body weight 238 [lb_av] 238 [lb_av] eCW1 ([facility]ly [facility]) Body weight 107.95 kg 107.95 kg eCW1 ([facility]) Body height 64 [in_i] 64 [in_i] eCW1 ([facility]) Body mass index (BMI) [Ratio] 40.85 kg/m2 40.85 kg/m2 eCW1 ([facility]) Heart rate 79 /min 79 /min eCW1 (Formerly [facility], [facility]) Respiratory rate 18 /min 18 /min eCW1 ([facility]) Body temperature 97.8 [degF] 97.8 [degF] eCW1 ( [facility]) Systolic blood pressure 136 mm[Hg] 136 mm[Hg] e CW1 ([facility]) Diastolic blood pressure 88 mm[Hg] 88 mm[Hg] eCW1 ([facility]) Body weight 237 [lb_av] 237 [lb_av] eCW1 ([facility]ly [facility]) Body weight 107.5 kg 107.5 kg eCW1 ([facility]) Body height 64 [in_i] 64 [in_i] eCW1 ([facility]) Body mass index (BMI) [Ratio] 40.68 kg/m2 40.68 kg/m2 eCW1 ([facility]) Respiratory rate 18 /min 18 /min eCW1 ([facility]) Heart rate 73 /min 73 /min eCW1 ([facility]ly [facility]) Body temperature 97.2 [degF] 97.2 [degF] eCW1 ( [facility]) Systolic blood pressure 126 mm[Hg] 126 mm[Hg] e CW1 ([facility]) Diastolic blood pressure 82 mm[Hg] 82 mm[Hg] eCW1 ([facility]) Body weight 239 [lb_av] 239 [lb_av] eCW1 ([facility]ly [facility]) Body weight 108.41 kg 108.41 kg eCW1 ([facility]) Body height 64 [in_i] 64 [in_i] eCW1 ([facility]) Body mass index (BMI) [Ratio] 41.02 kg/m2 41.02 kg/m2 eCW1 ([facility]) Heart rate 88 /min 88 /min eCW1 ([facility]ly [facility]) Respiratory rate 18 /min 18 /min eCW1 ([facility]) Body temperature 97.7 [degF] 97.7 [degF] eCW1 ( [facility]) Systolic blood pressure 136 mm[Hg] 136 mm[Hg] e CW1 ([facility]) Diastolic blood pressure 82 mm[Hg] 82 mm[Hg] eCW1 ([facility]) Body weight 242 [lb_av] 242 [lb_av] eCW1 ([facility]ly [facility]) Body height 64 [in_i] 64 [in_i] eCW1 ([facility]) Body mass index (BMI) [Ratio] 41.53 kg/m2 41.53 kg/m2 eCW1 ([facility]) Heart rate 90 /min 90 /min eCW1 ([facility]) Respiratory rate 17 /min 17 /min eCW1 ([facility]) Body temperature 97.8 [degF] 97.8 [degF] eCW1 ( [facility]) Systolic blood pressure 126 mm[Hg] 126 mm[Hg] e CW1 ([facility]) Diastolic blood pressure 75 mm[Hg] 75 mm[Hg] eCW1 ([facility]) Body mass index (BMI) [Ratio] 41.4 kg/m2 41.4 k g/m2 eCW1 ([facility]) Systolic blood pressure 154 mm[Hg] 154 mm[Hg] e CW1 ([facility]) Body weight 241.2 [lb_av] 241.2 [lb_av] eCW1 ([facility]) Diastolic blood pressure 90 mm[Hg] 90 mm[Hg] eCW1 ([facility]) Body weight 109.41 kg 109.41 kg eCW1 ([facility]) Body height 64 [in_i] 64 [in_i] eCW1 ([facility]) Body weight 237.00 [lb_av] 237.00 [lb_av] MEDEN T ([facility]) Body mass index (BMI) [Ratio] 40.7 kg/m2 40.7 k g/m2 MEDENT ([facility]) Body height 64 [in_i] 64 [in_i] MEDENT ([facility]) 5'4" Respiratory rate 18 /min 18 /min eCW1 ([facility]) Body weight 232 [lb_av] 232 [lb_av] eCW1 ([facility]ly [facility]) Body height 64 [in_i] 64 [in_i] eCW1 ([facility]) Body mass index (BMI) [Ratio] 39.82 kg/m2 39.82 kg/m2 W1 ([facility]) Body temperature 98.3 [degF] 98.3 [degF] eCW1 ( [facility]) Heart rate 88 /min 88 /min eCW1 ([facility]ly [facility]) Systolic blood pressure 140 mm[Hg] 140 mm[Hg] e CW1 ([facility]) Diastolic blood pressure 82 mm[Hg] 82 mm[Hg] eCW1 ([facility]) Body weight 232 [lb_av] 232 [lb_av] eCW1 ([facility]) Body height 64 [in_i] 64 [in_i] eCW1 ([facility]) Body mass index (BMI) [Ratio] 39.82 kg/m2 39.82 kg/m2 eCW1 ([facility]) Heart rate 100 /min 100 /min eCW1 ([facility]ly [facility]) Respiratory rate 18 /min 18 /min eCW1 ([facility]) Body temperature 98.2 [degF] 98.2 [degF] eCW1 ( [facility]) Systolic blood pressure 148 mm[Hg] 148 mm[Hg] e CW1 ([facility]) Diastolic blood pressure 100 mm[Hg] 100 mm[Hg] eCW1 ([facility]) Systolic blood pressure 144 mm[Hg] 144 mm[Hg] M EDENT ([facility], [facility]) Diastolic blood pressure 90 mm[Hg] 90 mm[Hg] MEDENT ([facility], [facility]) Heart rate 83 /min 83 /min MEDENT ([facility], [facility]) Respiratory rate 14 /min 14 /min MEDENT ( [facility], [facility]) Oxygen saturation in Arterial blood by Pulse oximetry 98 % 98 % MEDENT ([facility], [facility]) Body temperature 98.8 [degF] 98.8 [degF] MEDENT ([facility], [facility]) Body weight 232.00 [lb_av] 232.00 [lb_av] MEDEN T ([facility], [facility]) Body height 64 [in_i] 64 [in_i] MEDENT ([facility], [facility]) 5'4" Body mass index (BMI) [Ratio] 39.8 kg/m2 39.8 k g/m2 MEDENT ([facility], [facility]) Heart rate 85 /min 85 /min eCW1 ([facility]) Body weight 233 [lb_av] 233 [lb_av] eCW1 ([facility]ly [facility]) Body temperature 97.4 [degF] 97.4 [degF] eCW1 ( [facility]) Systolic blood pressure 152 mm[Hg] 152 mm[Hg] e CW1 ([facility]) Body height 64 [in_i] 64 [in_i] eCW1 ([facility]) Body mass index (BMI) [Ratio] 39.99 kg/m2 39.99 kg/m2 eCW1 ([facility]) Diastolic blood pressure 102 mm[Hg] 102 mm[Hg] eCW1 ([facility]) Respiratory rate 18 /min 18 /min eCW1 ([facility]) Body height 64 [in_i] 64 [in_i] eCW1 ([facility]) Body weight 233.2 [lb_av] 233.2 [lb_av] eCW1 ([facility]) Body mass index (BMI) [Ratio] 40.02 kg/m2 40.02 kg/m2 eCW1 ([facility]) Heart rate 86 /min 86 /min eCW1 ([facility]) Body temperature 96.1 [degF] 96.1 [degF] eCW1 ( [facility]) Systolic blood pressure 148 mm[Hg] 148 mm[Hg] e CW1 ([facility]) Diastolic blood pressure 96 mm[Hg] 96 mm[Hg] eCW1 ([facility]) Systolic blood pressure 129 mm[Hg] 129 mm[Hg] [facility] Diastolic blood pressure 86 mm[Hg] 86 mm[Hg] [facility] Heart rate 96 /min 96 /min [facility] Body temperature 36.11 Allison 36.11 Allison [facility] Body height 162.6 cm 162.6 cm [facility] Body weight 105.688 kg 105.688 kg [facility] Body mass index (BMI) [Ratio] 39.99 kg/m2 39.99 kg/m2 [facility] Oxygen saturation in Arterial blood by Pulse oximetry 95 % 95 % [facility] Body weight 232 [lb_av] 232 [lb_av] eCW1 ([facility]ly [facility]) Body height 64 [in_i] 64 [in_i] eCW1 ([facility]) Body mass index (BMI) [Ratio] 39.82 kg/m2 39.82 kg/m2 eCW1 ([facility]) Heart rate 89 /min 89 /min eCW1 ([facility]) Respiratory rate 18 /min 18 /min eCW1 ([facility]) Body temperature 99.0 [degF] 99.0 [degF] eCW1 ( [facility]) Systolic blood pressure 138 mm[Hg] 138 mm[Hg] e CW1 ([facility]) Diastolic blood pressure 83 mm[Hg] 83 mm[Hg] eCW1 ([facility]) ID Date Data Source [id number] 12/08/2020 08:54:00 AM EST [facility] Name Value Range Interpretation Code Description Data Source(s) WEIGHT 104.7 kilos 104.7 kilos [facility] HEIGHT 162.56 centimeters 162.56 centimeter [facility] WEIGHT 104.5 kilos 104.5 kilos [facility] HEIGHT 162.56 centimeters 162.56 centimeter [facility] ID Date Data Source [id number] 10/26/2020 07:17:00 PM EST [facility] Name Value Range Interpretation Code Description Data Source(s) Weight (Calculated Kilograms) 101.60 101.60 [facility] Height (Calculated Centimeters) 162.56 162. 56 [facility] Body Mass Index (BMI) 38.4 38.4 [facility] Patient Treatment Plan of Care Planned Activity Planned Date Details Description Data Source (s) Doxycycline Monohydrate 100 MG Oral Capsule 07/06/2021 12:00:00 AM EDT eCW1 ([facility]) Doxycycline Monohydrate 100 MG Oral Capsule 07/06/2021 12:00:00 AM EDT eCW1 ([facility]) Doxycycline Monohydrate 100 MG Oral Capsule 07/06/2021 12:00:00 AM EDT eCW1 ([facility]) Doxycycline Monohydrate 100 MG Oral Capsule 07/06/2021 12:00:00 AM EDT eCW1 ([facility]) Doxycycline Monohydrate 100 MG Oral Capsule 07/06/2021 12:00:00 AM EDT eCW1 ([facility]) doxycycline hyclate 100 MG Oral Capsule 06/04/2021 12:00:00 AM EDT eCW1 ([facility]) Bydureon BCise 2 MG/0.85ML 05/20/2021 12:00:00 AM EDT eCW1 ([facility]) Meclizine Hydrochloride 25 MG Oral Tablet 02/18/2021 12:00:00 AM ED T eCW1 ([facility]) Meclizine Hydrochloride 25 MG Oral Tablet 02/18/2021 12:00:00 AM ED T eCW1 ([facility]) BD Pen Needle Original U/F 29G X 12.7MM 01/27/2021 12:00:00 AM EDT eCW1 ([facility]) BD Pen Needle Original U/F 29G X 12.7MM 01/27/2021 12:00:00 AM EDT eCW1 ([facility]) latanoprost 0.05 MG/ML Ophthalmic Solution 11/27/2020 12:00:00 AM E BUCODA (Travon Borrego MD [facility]) 200 ACTUAT Albuterol 0.09 MG/ACTUAT Metered Dose Inhal er [ProAir] 10/16/2020 12:00:00 AM EST eCW1 ([facility])
[2021-08-31] MEDS: LEVEMIR (INSULIN DETEMIR) 1 UNITS/0.01ML SC SCH (22:47)
[2021-08-31] MEDS: SIMVASTATIN 20 MG TAB PO SCH (22:48)
[2021-08-31] MEDS: HEPARIN SOD (PORCINE) 5000UNITS/ML 1ML VIAL/SYRINGE SQ SCH (22:48)
[2021-08-31] MEDS: levETIRAcetam 250MG TABLET (KEPPRA) PO SCH (22:48)
[2021-08-31] MEDS: DULoxetine 30MG CAPSULE (CYMBALTA) PO SCH (22:48)
[2021-08-31] MEDS: tiZANidine 4 MG TAB PO SCH (22:49)
[2021-08-31] MEDS: traZODone 100 MG TAB PO SCH (22:49)
[2021-08-31 22:52] LABS: THYROID STIMULATING HORMONE 0.612 uIU/ML (0.358-3.740)
[2021-08-31 23:00] VITALS: BP 119/72
[2021-08-31 23:30] VITALS: BP 119/57
[2021-08-31] MEDS: TOPIRAMATE (TopAMAX) 25 MG TAB PO SCH (23:53)
[2021-09-01] VITALS (45 sets, daily range): BP systolic 57–173; BP diastolic 32–81
[2021-09-01] MEDS ORDERED: LR 1,000 ML IV ONE (00:40)
--- NOTE | 2021-09-01 00:41 | IPNPDOC ---
Text Note Date of Service The patient was seen on 09/01/21. NOTE 1245 AM #Hypotension -per d/w ALLYN Rascon the patient's SBP dropped to 68 (had to use a Doppler to assess her BP) -I suspect that this is likely due to BB administration (to manage tachycardia) but we should r/o an infection -at the time of my assessment was alert, and informed us that she also had a port that we could access if we need to start pressors Plan: place patient in Trendelenburg position/ 1L bolus of LR / f/u repeat troponin, blood cx, lactic acid, UA, chest xray / place Arellano to monitor strict Is and Os / dc Losartan 121AM #Shock -Initially 's SBP improved to 117 when we placed her in Trendelenburg position, but shortly thereafter it dropped to the 60s again. Plan: We will transfer her to ICU / start Levophed / f/u EKG / check magnesium & potassium levels #Tachycardia - Her HR is in the 140s and she had a run of NSVT Plan: repeat ECG / amiodarone 141AM #Lactic Acidosis -likely duet to septic shock Plan: switch from Clindamycin to Aztreonam and Vancomycin / f/u repeat lactic acid #Oliguria Plan: place arellano / if her UOP doesn't improve in the morning will consult Nephro 208AM #Tachycardia -The patient's HR had decreased to the 90s prior to amiodarone being administered, therefore we will discontinue it. #Septic Shock Her BP has improved to 141/78 on 10mcg of levophed. #Hypomagnesemia Her Mg was 1.7; we ordered 1mg of Mag Sulfate #Suspected Urinary retention -After the arellano was placed she produced some urine. We will continue to monitor her UPO JOLANTA ANNE MD Sep 01, 2021 00:41
[2021-09-01] MEDS ORDERED: AMIODARONE HCL 150 MG in IV 1 EA IV STA (01:25)
[2021-09-01] MEDS ORDERED: NOREPINEPHRINE BITARTRATE 8 MG in D5W 492 ML IV SCH (01:30)
[2021-09-01] MEDS ORDERED: NOREPINEPHRINE 4 MG/4 ML AMP As Ordered ONE (01:34)
[2021-09-01 01:42] LABS: MAGNESIUM LEVEL 1.7 MG/DL (1.8-2.4); POTASSIUM SERUM 4.9 MEQ/L (3.5-5.1)
[2021-09-01] MEDS ORDERED: LR 1,000 ML IV SCH (01:45)
[2021-09-01] MEDS ORDERED: MAG SULF 1GM/100ML (MAG RUN) 1 GM in IV 1 EA IV ONE (02:05)
--- NOTE | 2021-09-01 02:17 | REPVR ---
PROCEDURE INFORMATION: Exam: XR Chest Exam date and time: 09/01/2021 1:06 AM Age: 51 years old Clinical indication: Other: Hypotension; Additional info: Hypotension R/O infection TECHNIQUE: Imaging protocol: XR of the chest. Views: 1 view. COMPARISON: CR Chest, 2 view PA, Lat 08/26/2021 12:19 PM FINDINGS: Tubes, catheters and devices: Stable left chest infusion port. Stable spinal stimulator. There are catheters projecting over the chest bilaterally. Lungs: No consolidation. No consolidation. Pleural spaces: Unremarkable. No pleural effusion. No pneumothorax. Heart/Mediastinum: Unremarkable. No cardiomegaly. Vasculature: Elongation of the thoracic aorta. Bones/joints: Postoperative change involving the lower cervical spine. IMPRESSION: No acute pulmonary process. Electronically signed by: Rocky Coronel On 09/01/2021 02:16:48 AM
[2021-09-01 02:31] LABS: BASO % 0.2 % (0.0-1.0); HEMATOCRIT 24.4 % (36.0-47.0); MEAN CORPUSCULAR HEMOGLOBIN 29.4 pg (27.0-33.0); MEAN CORPUSCULAR HGB CONC 31.6 g/dl (32.0-36.5); MEAN CORPUSCULAR VOLUME 93.1 fl (80.0-96.0); MONO # 1.4 10^3/uL (0.0-0.8); MONO % 6.8 % (2.0-8.0); NEUTROPHILS # 17.5 10^3/uL (1.5-8.5); NEUTROPHILS % 87.2 % (36.0-66.0); RED BLOOD COUNT 2.62 10^6/uL (4.00-5.40); WHITE BLOOD COUNT 20.1 10^3/uL (4.0-10.0)
[2021-09-01 02:35] LABS: HEMOGLOBIN 7.7 g/dl (12.0-15.5); PLATELET COUNT, AUTOMATED 217 10^3/uL (150-450)
[2021-09-01] MEDS: LEVEMIR (INSULIN DETEMIR) 1 UNITS/0.01ML SC SCH ×3 (02:40→20:31)
[2021-09-01 02:56] LABS: ALBUMIN 2.3 GM/DL (3.2-5.2); BILIRUBIN,TOTAL 0.4 MG/DL (0.2-1.0); CALCIUM LEVEL 7.4 MG/DL (8.5-10.1); CREATININE FOR GFR 1.3 MG/DL (0.55-1.30); GLOMERULAR FILTRATION RATE 45.6 (>51); TOTAL PROTEIN 4.2 GM/DL (6.4-8.2)
[2021-09-01] MEDS ORDERED: VANCOMYCIN HCL 1,000 MG, VIAL MATE ADAPTER 1 EACH in NS 250 ML IV ONE ×2 (03:00→04:00)
[2021-09-01] MEDS: HumaLOG INSULIN (NovoLOG) PER UNIT SC SCH ×5 (06:10→20:31)
[2021-09-01] MEDS: HEPARIN SOD (PORCINE) 5000UNITS/ML 1ML VIAL/SYRINGE SQ SCH ×3 (06:10→22:27)
[2021-09-01] MEDS: AZTREONAM 2 GM in D5W MINI-BAG PLUS 100 ML IV SCH ×3 (06:10→22:27)
[2021-09-01 06:11] LABS: BASO # 0.1 10^3/uL (0.0-0.2); BASO % 0.3 % (0.0-1.0); HEMATOCRIT 27.2 % (36.0-47.0); HEMOGLOBIN 8.8 g/dl (12.0-15.5); LYMPH # 1.9 10^3/uL (1.5-5.0); MEAN CORPUSCULAR HEMOGLOBIN 29.6 pg (27.0-33.0); MEAN CORPUSCULAR HGB CONC 32.4 g/dl (32.0-36.5); MEAN CORPUSCULAR VOLUME 91.6 fl (80.0-96.0); MONO # 1.4 10^3/uL (0.0-0.8); MONO % 7.5 % (2.0-8.0); NEUTROPHILS # 15.3 10^3/uL (1.5-8.5); NEUTROPHILS % 81.4 % (36.0-66.0); PLATELET COUNT, AUTOMATED 271 10^3/uL (150-450); RED BLOOD COUNT 2.97 10^6/uL (4.00-5.40); WHITE BLOOD COUNT 18.9 10^3/uL (4.0-10.0)
[2021-09-01 06:14] LABS: INR 1.08; PARTIAL THROMBOPLASTIN TIME 25.4 SECONDS (25.9-37.0); PROTHROMBIN TIME 14.4 SECONDS (12.7-14.5)
[2021-09-01 06:15] LABS: APPEARANCE, URINE CLEAR (CLEAR); BACTERIA, URINE AUTO NEGATIVE (NEGATIVE); BILIRUBIN, URINE AUTO NEGATIVE (NEGATIVE); BLOOD, URINE BLOOD NEGATIVE (NEGATIVE); COLOR, URINE COLORLESS (YELLOW); GLUCOSE, URINE (UA) AUTO NEGATIVE (NEGATIVE); KETONE, URINE AUTO NEGATIVE (NEGATIVE); LEUKOCYTE ESTERASE, URINE AUTO NEGATIVE (NEGATIVE); MUCUS, URINE SMALL (NEGATIVE); NITRITE, URINE AUTO NEGATIVE (NEGATIVE); PROTEIN, URINE AUTO NEGATIVE (NEGATIVE); RBC, URINE AUTO 0 /HPF (0-3); SPECIFIC GRAVITY URINE AUTO 1.001 (1.002-1.035); SQUAMOUS EPITHELIAL CELL UR AU 0 /HPF (0-6); UROBILINOGEN, URINE AUTO 0.2 mg/dL (0.0-2.0); WBC, URINE AUTO 0 /HPF (0-3)
[2021-09-01 06:34] LABS: CALCIUM LEVEL 8.2 MG/DL (8.5-10.1); CREATININE FOR GFR 1.08 MG/DL (0.55-1.30); GLOMERULAR FILTRATION RATE 56.5 (>51); POTASSIUM SERUM 5.2 MEQ/L (3.5-5.1)
[2021-09-01] MEDS ORDERED: HumaLOG INSULIN (NovoLOG) PER UNIT SC SCH (07:30)
[2021-09-01] MEDS ORDERED: ISOVUE-370 76% 100ML VIAL As Ordered ONE ×2 (07:58→09:08)
[2021-09-01] MEDS ORDERED: methylPREDNISolone 40MG 1ML VIAL IV ONE (08:20)
[2021-09-01] MEDS ORDERED: LOSARTAN 25 MG TAB PO SCH (09:00)
[2021-09-01] MEDS: CETIRIZINE (ZyrTEC) 10 MG TAB PO SCH (09:16)
[2021-09-01] MEDS: VITAMIN D 1,000 INTERNATIONAL UNITS TABLET PO SCH (09:16)
[2021-09-01] MEDS: OMEPRAZOLE 20 MG CAP PO SCH (09:16)
[2021-09-01] MEDS: levETIRAcetam 250MG TABLET (KEPPRA) PO SCH ×2 (09:16→20:32)
[2021-09-01] MEDS: ASCORBIC ACID 500 MG TAB PO SCH (09:16)
[2021-09-01] MEDS: MORPHINE 2 MG/ML 1ML VIAL (J2270) IV PRN ×2 (10:56→23:23)
[2021-09-01] MEDS ORDERED: methylPREDNISolone 125MG 2ML VIAL IV ONE (13:00)
[2021-09-01] MEDS ORDERED: diphenhydrAMINE 50MG/ML VIAL (J1200) IV ONE (13:00)
--- NOTE | 2021-09-01 15:35 | REP ---
INDICATION: r/o PE, intraabdominal process. COMPARISON: None. TECHNIQUE: CT angiography of the chest after the intravenous administration of 75 cc Isovue 370 attention pulmonary arteries. FINDINGS: The examination is technically suboptimal, however, no definite abnormal focal filling defects are seen in the pulmonary arterial vasculature that would be consistent with acute pulmonary emboli. There are no pleural or pericardial effusions. There is no evidence of mediastinal or hilar adenopathy. There are no pleural or pericardial effusions. There are postoperative changes seen in the anterior chest wall on the right with soft tissue and air densities along with surgical drainage tubes/implanted expanders. The imaged upper abdomen is seen in a limited fashion due to significant artifact. There is no evidence of a gross abnormality. Evaluation of the osseous structures shows no evidence of an acute abnormality. There is a dorsal column stimulator present the superior tip of which is at the level of T9. The tip of a MediPort device is seen in the superior vena cava/right atrial junction. Evaluation of the lung mills shows lung field hypoexpansion with scattered patchy and curvilinear densities. IMPRESSION: 1. The examination is suboptimal, however, there is no evidence of an acute pulmonary embolism. Consider follow-up. 2. Lung field opacities most consistent with subsegmental atelectatic changes. Follow-up is suggested. 3. Other findings and exam limitations as described above. Follow-up is recommended. 4. It should be stated that no detailed surgical history has been provided. <Electronically signed by Sourav Pederson > 09/01/21 1308
--- NOTE | 2021-09-01 15:50 | IPNPDOC ---
Subjective General Date Seen: Sep 01, 2021 (7 am) Subject Chief Complaint/History The patient is a 51-year-old female admitted with a reason for visit of Right Breast Cancer, status post neoadjuvant therapy, s/p bilateral simple mastectomy with right sentinel lymph node biopsy done on 08/31/2021. Procedure was complic ated by left arm IV infiltration causing left arm swelling and post procedure tachycardia not responding to 2 L of fluid bolus. Patient was admitted to ICU from recovery for close observation. Her blood pressure dropped and she required pressors overnight. Current Medications Current Medications Current Medications Medications (Trade) Dose Ordered Sig/Pavithra Route PRN Reason Start Time Stop Time Status Last Admin Dose Admin Acetaminophen (Tylenol Tab) 650 mg Q6H PRN PO MILD PAIN (PS 1-4) 08/31/21 18:55 Amiodarone HCl 150 mg/IV Miscellaneous Supplies 100 ml @ 600 mls/hr STAT STAT IV 09/01/21 01:25 09/01/21 02:11 DC Aripiprazole (AbiLIFY) 7.5 mg DAILY PO 09/01/21 09:00 09/01/21 09:16 Ascorbic Acid (Vitamin C) 1,000 mg DAILY PO 09/01/21 09:00 09/01/21 09:16 Aztreonam 2 gm/ Dextrose 100 ml @ 100 mls/hr Q8H IV 09/01/21 06:00 09/01/21 06:10 Calcium Carbonate (Tums) 500 mg BID PRN PO INDIGESTION 08/31/21 20:15 Cetirizine HCl (ZyrTEC) 10 mg DAILY PO 09/01/21 09:00 09/01/21 09:16 Clindamycin Phosphate 900 mg/ IV Miscellaneous Supplies 50 ml @ 50 mls/hr Q8H IV 08/31/21 22:00 09/01/21 01:41 DC 08/31/21 23:53 Clonazepam (KlonoPIN) 0.5 mg BIDP PRN PO ANXIETY 08/31/21 20:15 Dextrose (Dextrose 50%) 25 ml ASDIRECTED PRN IV SEE LABEL COMMENTS 08/31/21 20:35 Diphenhydramine HCl (Benadryl) 50 mg Q6H PRN PO rash 08/31/21 21:45 08/31/21 22:49 Duloxetine HCl (Cymbalta) 120 mg QHS PO 08/31/21 21:00 08/31/21 22:48 Esmolol HCl (Brevibloc) 10 mg ASDIRECTED PRN IV For hr>125 MAY REPEAT up to 5x 08/31/21 21:00 08/31/21 23:00 DC Fentanyl Citrate (Sublimaze) 25 mcg Q5MP PRN IV PAIN LEVEL 8-10 08/31/21 19:10 08/31/21 21:12 DC 08/31/21 20:35 Glucagon (Glucagon) 1 mg ASDIRECTED PRN SC SEE LABEL COMMENTS 08/31/21 20:35 Glucose (Glucose) 16 GM ASDIRECTED PRN PO SEE LABEL COMMENTS 08/31/21 20:35 Heparin Sodium (Porcine) (Heparin) 5,000 units Q8H SQ 08/31/21 22:00 09/01/21 06:10 Insulin Detemir (Levemir Insulin) 5 units QHS SC 09/01/21 02:40 09/01/21 02:40 Insulin Detemir (Levemir Insulin) 5 units QHS SC 09/01/21 21:00 09/01/21 02:38 DC Insulin Detemir (Levemir Insulin) 10 units QHS SC 08/31/21 21:00 08/31/21 22:47 Insulin Human Lispro (HumaLOG INSULIN) SEE PROTOCOL TABLE AC ID 09/01/21 07:30 09/01/21 02:15 DC Insulin Human Lispro (HumaLOG INSULIN) SEE PROTOCOL TABLE AC ID 09/01/21 12:00 09/01/21 13:30 Insulin Human Lispro (HumaLOG INSULIN) SEE PROTOCOL TABLE Q6H ID 09/01/21 00:00 09/01/21 10:11 DC 09/01/21 06:10 Insulin Human Lispro (HumaLOG INSULIN) [facility] 08/31/21 21:00 09/01/21 02:15 DC 08/31/21 22:47 Insulin Human Lispro (HumaLOG INSULIN) SEE PROTOCOL TABLE [facility] 09/01/21 21:00 Lactated Ringer's 1,000 ml @ 100 mls/hr Q10H IV 08/31/21 18:55 09/01/21 01:48 DC 08/31/21 20:28 Lactated Ringer's 1,000 ml @ 100 mls/hr Q10H IV 08/31/21 19:10 08/31/21 21:12 DC 08/31/21 19:10 Lactated Ringer's 1,000 ml @ 120 mls/hr Q8H20M IV 09/01/21 01:45 09/01/21 10:11 DC 09/01/21 02:23 Lactated Ringer's 1,000 ml @ 999 mls/hr Q1H1M IV 08/31/21 20:20 08/31/21 21:20 DC 08/31/21 18:40 Latanoprost (Xalatan 0.005% Op Soln) 1 drop QPM OU 08/31/21 21:00 Levetiracetam (Keppra) 500 mg BID PO 08/31/21 21:00 09/01/21 09:16 Lidocaine HCl (LIDOCAINE 1% MDV 20ml) 0.1 ml ONCE PRN SQ DISCOMFORT BEFORE IV START 08/31/21 06:00 Losartan Potassium (Cozaar) 50 mg DAILY PO 09/01/21 09:00 09/01/21 00:40 DC Metoclopramide HCl (REGLAN INJection) 10 mg Q6HP PRN IV NAUSEA OR VOMITING 08/31/21 19:10 08/31/21 20:23 DC Metoprolol Tartrate (Lopressor) 1 mg Q5MP PRN IV SEE LABEL COMMENTS 08/31/21 19:10 08/31/21 21:12 DC 08/31/21 20:45 Morphine Sulfate (Morphine Sulfate Inj) 2 mg Q3H PRN IV SEVERE PAIN (PS 8-10) 08/31/21 18:55 09/01/21 10:56 Norepinephrine Bitartrate 8 mg/ Dextrose 500 ml @ 15 mls/hr Q24H IV 09/01/21 01:30 09/01/21 02:24 Omeprazole (PriLOSEC) 40 mg DAILY PO 09/01/21 09:00 09/01/21 09:16 Ondansetron HCl (ZOFRAN INJection) 4 mg Q4H PRN IV NAUSEA OR VOMITING 08/31/21 18:55 09/01/21 00:42 Ondansetron HCl (ZOFRAN INJection) 4 mg Q4HP PRN IV NAUSEA OR VOMITING 08/31/21 19:10 08/31/21 21:12 DC Oxycodone/ Acetaminophen (Percocet 5mg/ 325mg Tablet) 1 tab ASDIRECTED PRN PO PAIN LEVEL 1-4 08/31/21 19:10 08/31/21 21:12 DC 08/31/21 20:29 Simvastatin (Zocor) 20 mg QHS PO 08/31/21 21:00 08/31/21 22:48 Tizanidine HCl (Zanaflex) 4 mg QHS PO 08/31/21 21:00 08/31/21 22:49 Topiramate (TopAMAX) 50 mg QHS PO 08/31/21 21:00 08/31/21 23:53 Tramadol HCl (Ultram) 50 mg Q6HP PRN PO MODERATE PAIN (PS 5-7) 08/31/21 18:55 Trazodone HCl (Desyrel) 100 mg QHS PO 08/31/21 21:00 08/31/21 22:49 Vancomycin HCl 1000 mg/IV Miscellaneous Supplies 1 each/ Sodium Chloride 270 ml @ 270 mls/hr Q12H IV 09/01/21 20:00 Vitamin D (Vitamin D) 2,000 units DAILY PO 09/01/21 09:00 09/01/21 09:16 Allergies Coded Allergies: Gadolinium-Containing Contrast Medi (Verified Allergy, Severe, anaphylaxis, 08/31/21) Contrast Media (Verified Allergy, Intermediate, hives, 08/31/21) Sulfa (Sulfonamide Antibiotics) (Verified Allergy, Mild, hives, 08/31/21) amoxicillin (Verified Allergy, Mild, rash, 08/31/21) propranolol (Verified Allergy, Mild, hives, 08/31/21) valproic acid (Verified Allergy, Mild, hives, 08/31/21) Tricyclic Compounds (Verified Adverse Reaction, Mild, mouth sores, 08/31/21) amitriptyline (Verified Adverse Reaction, Mild, mouth sores, 08/31/21) gabapentin (Verified Adverse Reaction, Mild, orbital pain, 08/31/21) lidocaine (Verified Adverse Reaction, Mild, elevated heart rate, 08/31/21) PATIENT STATES HER REACTION IS ONLY TO THE LIDOCAINE PATCH, NOT THE INJECTABLE LIDOCAINE magnesium (Verified Adverse Reaction, Mild, mouth sores, 08/31/21) pregabalin (Verified Adverse Reaction, Mild, orbital pain, 08/31/21) zinc (Verified Adverse Reaction, Mild, mouth sores, 08/31/21) Objective Physical Examination Examination GENERAL APPEARANCE: Patient seen, laying in bed, awake, alert, and oriented. BREAST: bilateral breasts are absent surgically. There HER-2 LUIS EDUARDO drains in the right 13P drain on the left. All of the drains are with sanguinous drainage. On palpation on the chest there seems to be fluid accumulation in the right chest under mastectomy flap consistent with possible hematoma. Drains were stripped from by me this morning to help with evacuation of the fluid collection. Mastectomy flaps are viable. LUNGS: Not in respiratory distress HEART: Patient is tachycardic ABDOMEN: Abdomen is soft EXTREMITIES: Patient moves her upper extremities without any issues. The left hand is softer and the edema decreased from previous IV infiltration Vital Signs Vital Signs Date Time Temp Pulse Resp B/P (MAP) Pulse Ox O2 Delivery O2 Flow Rate FiO2 09/01/21 12:40 108 09/01/21 12:30 127/58 (81) 09/01/21 12:00 97.4 16 96 Room Air 08/31/21 22:00 0.5 I&Os I&O- Last 24 Hours up to 6 AM 09/01/21 06:00 Intake Total 3750 ml Output Total 860 ml Balance 2890 ml Laboratory Data Labs 24H Laboratory Tests 2 08/31/21 19:44: Immature Granulocyte % (Auto) 0.5, Neutrophils (%) (Auto) 91.1H, Lymphocytes (%) (Auto) 4.9L, Monocytes (%) (Auto) 3.1, Eosinophils (%) (Auto) 0.0, Basophils (%) (Auto) 0.4, Neutrophils # (Auto) 20.4H, Lymphocytes # (Auto) 1.1L, Monocytes # (Auto) 0.7, Eosinophils # (Auto) 0.0, Basophils # (Auto) 0.1, Nucleated Red Blood Cells % (auto) 0.0, Anion Gap 8, Glomerular Filtration Rate > 60.0, Calcium Level 8.6 08/31/21 22:00: Magnesium Level 1.7L, Troponin I High Sensitivity 7.0, PD-Qxu-C-Type Natriuretic Peptide 23, Thyroid Stimulating Hormone (TSH) 0.612 08/31/21 22:24: Bedside Glucose (Misc Panel) 392H 09/01/21 00:39: Bedside Glucose (Misc Panel) 345H 09/01/21 00:59: Lactic Acid Level 7.1*H 09/01/21 02:02: Immature Granulocyte % (Auto) 0.8, Neutrophils (%) (Auto) 87.2H, Lymphocytes (%) (Auto) 5.0L, Monocytes (%) (Auto) 6.8, Eosinophils (%) (Auto) 0.0, Basophils (%) (Auto) 0.2, Neutrophils # (Auto) 17.5H, Lymphocytes # (Auto) 1.0L, Monocytes # (Auto) 1.4H, Eosinophils # (Auto) 0.0, Basophils # (Auto) 0.0, Nucleated Red Blood Cells % (auto) 0.0, Anion Gap 11, Glomerular Filtration Rate 45.6L, Calcium Level 7.4L, Total Bilirubin 0.4, Aspartate Amino Transf (AST/SGOT) 13, Alanine Aminotransferase (ALT/SGPT) 16, Alkaline Phosphatase 80, Total Protein 4.2L, Albumin 2.3L, Albumin/Globulin Ratio 1.2 09/01/21 04:01: Bedside Glucose (Misc Panel) 278H 09/01/21 05:48: Immature Granulocyte % (Auto) 0.8, Neutrophils (%) (Auto) 81.4H, Lymphocytes (%) (Auto) 10.0L, Monocytes (%) (Auto) 7.5, Eosinophils (%) (Auto) 0.0, Basophils (%) (Auto) 0.3, Neutrophils # (Auto) 15.3H, Lymphocytes # (Auto) 1.9, Monocytes # (Auto) 1.4H, Eosinophils # (Auto) 0.0, Basophils # (Auto) 0.1, Nucleated Red Blood Cells % (auto) 0.0, Anion Gap 7L, Glomerular Filtration Rate 56.5, Calcium Level 8.2L, Prothrombin Time 14.4H, Prothromb Time International Ratio 1.08, Activated Partial Thromboplast Time 25.4, Lactic Acid Followup at 4 Hours 3.3*H 09/01/21 05:57: Bedside Glucose (Misc Panel) 281H 09/01/21 06:00: Urine Color COLORLESS, Urine Appearance CLEAR, Urine pH 5.0, Urine Specific [place] 1.001L, Urine Protein NEGATIVE, Urine Glucose (Auto)(UA) NEGATIVE, Urine Ketones (Auto) NEGATIVE, Urine Blood NEGATIVE, Urine Nitrite NEGATIVE, Urine Bilirubin NEGATIVE, Urine Urobilinogen 0.2, Urine Leukocyte Esterase (Auto) NEGATIVE, Urine WBC (Auto) 0, Urine RBC (Auto) 0, Urine Hyaline Casts (Auto) 0, Urine Bacteria (Auto) NEGATIVE, Urine Squamous Epithelial Cells 0, Urine Mucus (Auto) SMALL, Urine Sperm (Auto) 09/01/21 09:23: Methicillin-Resist S.aureus DNA PCR NOT DETECTED 09/01/21 12:38: Bedside Glucose (Misc Panel) 182H CBC/BMP Laboratory Tests 08/31/21 19:44 08/31/21 22:00 09/01/21 02:02 09/01/21 05:48 Microbiology Microbiology 09/01/21 Blood Culture, Received Pending 09/01/21 Blood Culture, Received Pending Impression The patient is a 51-year-old female admitted with a reason for visit of Right Breast Cancer, status post neoadjuvant therapy, s/p bilateral simple mastectomy with right sentinel lymph node biopsy done on 08/31/2021. Procedure was complicated by left arm IV infiltration causing left arm swelling and post procedure tachycardia not responding to 2 L of fluid bolus. Patient was admitted to ICU from recovery for close observation. Her blood pressure dropped and she required pressors overnight. - Med management per hospitalist team, greatly appreciate help with taking care of Ms. Cloud - Monitor drains, please strip drains per order - Monitor right chest has it is likely developing hematoma - May need to hold heparin if the drain output continues to be high ans sanguinous - will follow closely Plan / VTE VTE Prophylaxis Ordered?: Yes FABIENNE MOLINA DO Sep 01, 2021 15:50
--- NOTE | 2021-09-01 16:04 | REP ---
INDICATION: r/o PE, intraabdominal process. COMPARISON: None TECHNIQUE: Axial contrast-enhanced images from the lung bases to the pubic symphysis with coronal and sagittal reformations with images obtained in arterial phase of enhancement. This CT examination was performed using the following dose reduction techniques: Automated exposure control, adjustment of mA and/or kv according to the patient's size, and use of iterative reconstruction technique. FINDINGS: Lung bases are essentially clear. Visualized heart and pericardium normal. Patient is status post bilateral mastectomy with drainage catheters in the anterior chest wall. There is an ovoid presumed hemorrhagic collection surrounding the right catheter which should be correlated with drainage output. Liver, spleen, pancreas, gallbladder, bilateral adrenal glands and kidneys are normal. The enteric system demonstrates moderate fecal stasis which should be correlated clinically. There is evidence for prior bowel resection. There is no obstruction or acute inflammatory process identified. Pelvis demonstrates Milner catheter in collapsed bladder and age-appropriate uterus/adnexa. No ascites. No free air. No adenopathy. No focal inflammatory stranding. Abdominal aorta without aneurysm. Musculoskeletal structures are intact and without acute osseous abnormality. Epidural stimulator identified extending to the lower thoracic level. IMPRESSION: 1. No acute abdominopelvic pathology appreciated. 2. Mild to moderate fecal stasis cannot be excluded. 3. Patient is status post bilateral mastectomy. <Electronically signed by Braydon Ritchie > 09/01/21 1600
[2021-09-01] MEDS ORDERED: VANCOMYCIN HCL 1,000 MG, VIAL MATE ADAPTER 1 EACH in NS 250 ML IV SCH (20:00)
[2021-09-01] MEDS: LATANOPROST 0.005% OPHTH SOLN 2.5 ML OU SCH (20:32)
[2021-09-01] MEDS: traZODone 100 MG TAB PO SCH (20:32)
[2021-09-01] MEDS: SIMVASTATIN 20 MG TAB PO SCH (20:32)
[2021-09-01] MEDS: TOPIRAMATE (TopAMAX) 25 MG TAB PO SCH (20:32)
[2021-09-01] MEDS: tiZANidine 4 MG TAB PO SCH (20:32)
[2021-09-01] MEDS: DULoxetine 30MG CAPSULE (CYMBALTA) PO SCH (20:33)
[2021-09-01] MEDS ORDERED: LEVEMIR (INSULIN DETEMIR) 1 UNITS/0.01ML SC SCH (21:00)
--- NOTE | 2021-09-01 22:12 | IPNPDOC ---
Date Seen The patient was seen on 09/01/21. Progress Note SUBJECTIVE: Seen examined at bedside. Status post double simple mastectomy with right sentinel lymph node biopsy on 08/31/2021. Patient on pressors overnight requiring 10 mcg of Levophed. He was ultimately discontinued this morning at approximately 10 AM patient sustained blood pressures above a map of 65. She has had good urine output of approximately 1 mL per cake per hour. OBJECTIVE PHYSICAL EXAMINATION: VITAL SIGNS: please see below General: NAD, comfortable HEENT: PERRLA, EOMI, sclerae clear Neck: supple, normal ROM, no JVD Respiratory: lungs CTAB, no wheeze, no rales, no crackles CVS: RRR, normal S1, S2, no murmurs Abdo: soft, no masses, no hepatosplenomegaly, BS+, no rebound tenderness Extremities: no edema, pulses 2+ MSK: no joint deformities, normal ROM Neuro: no focal neuro deficits, moving all 4 extremities, CN2-12 intact. Strength 5/5 in all 4 extremities. No nystagmus. Psych: calm, cooperative, AAO x 3 LABORATORY DATA, IMAGING STUDIES, MICROBIOLOGY: Please see below. CT angiogram of the abdomen and pelvis on 09/01/2021 1. No acute abdominopelvic pathology appreciated. 2. Mild to moderate fecal stasis cannot be excluded. 3. Patient is status post bilateral mastectomy. CT angio chest on 09/01/2021 1. The examination is suboptimal, however, there is no evidence of an acute pulmonary embolism. Consider follow-up. 2. Lung field opacities most consistent with subsegmental atelectatic changes. Follow-up is suggested. 3. Other findings and exam limitations as described above. Follow-up is recommended. DVT prophylaxis ordered?: Heparin 5000 units subcu ASSESSMENT AND PLAN: 51-year-old female with a history of type 2 diabetes glaucoma obesity hypertension ER positive HI positive HER-2 breast cancer status post bilateral mastectomy with right sentinel lymph node biopsy on 08/31/[address] Velez. Procedure was complicated by left arm IV infiltration causing left arm swelling and post procedure hypotension and shock not responding to flu id resuscitation. Patient required IV pressors to maintain blood pressure. PROBLEMS: Shock -Lactic acidosis with hypotension requiring the use of Levophed. -Presently aztreonam and clindamycin lactic acidosis has improved. CT angiogram does not show intra-abdominal process no other PEs found in the CT angiogram of the chest. #Status post bilateral mastectomy Continue incentive spirometry Follow-up on BMP for possible electrolyte imbalances Follow-up on CBC with differential in case of leukocytosis or anemia following bilateral mastectomy Continue morphine for pain Continue tramadol for pain Continue acetaminophen for pain Continue fluid resuscitation with lactated Ringer #Hypertension Continue home losartan #Hyperlipidemia Continue home simvastatin #GERD Continue home omeprazole #Glaucoma Continue home latanoprost #Anxiety Continue home duloxetine Continue home as needed clonazepam #Complex regional pain syndrome Continue Keppra home dose Continue tizanidine home dose Continue Topamax home dose #Diabetes type 2 Patient is on 38 units insulin glargine at home, since patient is in the hospital and just had surgery were starting at 10 units detemir Sliding scale insulin Hypoglycemic protocol in place -check A1c #Class 3 obesity -complicates care VT prophylaxis: Heparin Thank you for consulting us, we will continue to follow along with you. VS, I&O, 24H, Fishbone Vital Signs/I&O Vital Signs Date Time Temp Pulse Resp B/P (MAP) Pulse Ox O2 Delivery O2 Flow Rate FiO2 09/01/21 20:00 97.9 122 20 112/78 (89) 96 Room Air 08/31/21 22:00 0.5 I&O- Last 24 Hours up to 6 AM 09/01/21 06:00 Intake Total 3750 ml Output Total 860 ml Balance 2890 ml Laboratory Data 24H LABS Laboratory Tests 2 08/31/21 22:24: Bedside Glucose (Misc Panel) 392H 09/01/21 00:39: Bedside Glucose (Misc Panel) 345H 09/01/21 00:59: Lactic Acid Level 7.1*H 09/01/21 02:02: Immature Granulocyte % (Auto) 0.8, Neutrophils (%) (Auto) 87.2H, Lymphocytes (%) (Auto) 5.0L, Monocytes (%) (Auto) 6.8, Eosinophils (%) (Auto) 0.0, Basophils (%) (Auto) 0.2, Neutrophils # (Auto) 17.5H, Lymphocytes # (Auto) 1.0L, Monocytes # (Auto) 1.4H, Eosinophils # (Auto) 0.0, Basophils # (Auto) 0.0, Nucleated Red Blood Cells % (auto) 0.0, Anion Gap 11, Glomerular Filtration Rate 45.6L, Calcium Level 7.4L, Total Bilirubin 0.4, Aspartate Amino Transf (AST/SGOT) 13, Alanine Aminotransferase (ALT/SGPT) 16, Alkaline Phosphatase 80, Total Protein 4.2L, Albumin 2.3L, Albumin/Globulin Ratio 1.2 09/01/21 04:01: Bedside Glucose (Misc Panel) 278H 09/01/21 05:48: Immature Granulocyte % (Auto) 0.8, Neutrophils (%) (Auto) 81.4H, Lymphocytes (%) (Auto) 10.0L, Monocytes (%) (Auto) 7.5, Eosinophils (%) (Auto) 0.0, Basophils (%) (Auto) 0.3, Neutrophils # (Auto) 15.3H, Lymphocytes # (Auto) 1.9, Monocytes # (Auto) 1.4H, Eosinophils # (Auto) 0.0, Basophils # (Auto) 0.1, Nucleated Red Blood Cells % (auto) 0.0, Prothrombin Time 14.4H, Prothromb Time International Ratio 1.08, Activated Partial Thromboplast Time 25.4, Anion Gap 7L, Glomerular Filtration Rate 56.5, Lactic Acid Followup at 4 Hours 3.3*H, Calcium Level 8.2L 09/01/21 05:57: Bedside Glucose (Misc Panel) 281H 09/01/21 06:00: Urine Color COLORLESS, Urine Appearance CLEAR, Urine pH 5.0, Urine Specific [place] 1.001L, Urine Protein NEGATIVE, Urine Glucose (Auto)(UA) NEGATIVE, Urine Ketones (Auto) NEGATIVE, Urine Blood NEGATIVE, Urine Nitrite NEGATIVE, Urine Bilirubin NEGATIVE, Urine Urobilinogen 0.2, Urine Leukocyte Esterase (Auto) NEGATIVE, Urine WBC (Auto) 0, Urine RBC (Auto) 0, Urine Hyaline Casts (Auto) 0, Urine Bacteria (Auto) NEGATIVE, Urine Squamous Epithelial Cells 0, Urine Mucus (Auto) SMALL, Urine Sperm (Auto) 09/01/21 09:23: Methicillin-Resist S.aureus DNA PCR NOT DETECTED 09/01/21 12:38: Bedside Glucose (Misc Panel) 182H 09/01/21 16:05: Bedside Glucose (Misc Panel) 217H 09/01/21 16:19: Lactic Acid Level 2.3*H 09/01/21 20:17: Bedside Glucose (Misc Panel) 284H 09/01/21 21:21: Lactic Acid Followup at 4 Hours 2.3*H CBC/BMP Laboratory Tests 09/01/21 02:02 09/01/21 05:48 Microbiology Microbiology 09/01/21 Blood Culture, Received Pending 09/01/21 Blood Culture, Received Pending FABIOLA ARAIZA MD Sep 01, 2021 22:12
[2021-09-02] VITALS (12 sets, daily range): BP systolic 99–146; BP diastolic 52–75
[2021-09-02] MEDS ORDERED: LR 1,000 ML IV ONE (00:10)
[2021-09-02] MEDS: HEPARIN SOD (PORCINE) 5000UNITS/ML 1ML VIAL/SYRINGE SQ SCH (05:18)
[2021-09-02] MEDS: AZTREONAM 2 GM in D5W MINI-BAG PLUS 100 ML IV SCH ×3 (05:18→22:00)
[2021-09-02 06:09] LABS: BASO # 0.1 10^3/uL (0.0-0.2); BASO % 0.3 % (0.0-1.0); EOS % 0.1 % (0.0-3.0); HEMATOCRIT 23.4 % (36.0-47.0); HEMOGLOBIN 7.2 g/dl (12.0-15.5); LYMPH # 2.8 10^3/uL (1.5-5.0); LYMPH % 18.9 % (24.0-44.0); MEAN CORPUSCULAR HEMOGLOBIN 28.9 pg (27.0-33.0); MEAN CORPUSCULAR HGB CONC 30.8 g/dl (32.0-36.5); MONO % 6.6 % (2.0-8.0); NEUTROPHILS # 10.7 10^3/uL (1.5-8.5); NEUTROPHILS % 73.1 % (36.0-66.0); PLATELET COUNT, AUTOMATED 215 10^3/uL (150-450); RED BLOOD COUNT 2.49 10^6/uL (4.00-5.40); WHITE BLOOD COUNT 14.7 10^3/uL (4.0-10.0)
[2021-09-02 06:39] LABS: BLOOD UREA NITROGEN 9 MG/DL (7-18); CALCIUM LEVEL 8.5 MG/DL (8.5-10.1); CARBON DIOXIDE LEVEL 24 MEQ/L (21-32); CHLORIDE LEVEL 108 MEQ/L (98-107); GLOMERULAR FILTRATION RATE > 60.0 (>51); GLUCOSE, FASTING 153 MG/DL (70-100); MAGNESIUM LEVEL 2.1 MG/DL (1.8-2.4); POTASSIUM SERUM 3.9 MEQ/L (3.5-5.1); SODIUM LEVEL 142 MEQ/L (136-145)
[2021-09-02] MEDS: VITAMIN D 1,000 INTERNATIONAL UNITS TABLET PO SCH (08:33)
[2021-09-02] MEDS: ASCORBIC ACID 500 MG TAB PO SCH (08:33)
[2021-09-02] MEDS: OMEPRAZOLE 20 MG CAP PO SCH (08:34)
[2021-09-02] MEDS: levETIRAcetam 250MG TABLET (KEPPRA) PO SCH ×2 (08:34→21:41)
[2021-09-02] MEDS: CETIRIZINE (ZyrTEC) 10 MG TAB PO SCH (08:34)
[2021-09-02] MEDS: HumaLOG INSULIN (NovoLOG) PER UNIT SC SCH ×4 (08:35→21:00)
--- NOTE | 2021-09-02 10:43 | IPNPDOC ---
Subjective General Date Seen: Sep 02, 2021 (10 am) Subject Chief Complaint/History The patient is a 51-year-old female admitted with a reason for visit of Right Breast Cancer, status post neoadjuvant therapy, s/p bilateral simple mastectomy with right sentinel lymph node biopsy done on 08/31/2021. Procedure was comp licated by left arm IV infiltration causing left arm swelling and post procedure tachycardia not responding to 2 L of fluid bolus. Patient was admitted to ICU from recovery for close observation. Her blood pressure dropped and she required pressors overnight. Patient developed right chest wall hematoma. Her chest was wrapped with SUJATHA wrap. She does have significant drainage from both mastectomy sites - over 480 cc per side per 24 h Her tachycardia improved Her hemoglobin dropped to 7 ans she required 1 u of PRBC Current Medications Current Medications Current Medications Medications (Trade) Dose Ordered Sig/Pavithra Route PRN Reason Start Time Stop Time Status Last Admin Dose Admin Acetaminophen (Tylenol Tab) 650 mg Q6H PRN PO MILD PAIN (PS 1-4) 08/31/21 18:55 Amiodarone HCl 150 mg/IV Miscellaneous Supplies 100 ml @ 600 mls/hr STAT STAT IV 09/01/21 01:25 09/01/21 02:11 DC Aripiprazole (AbiLIFY) 7.5 mg DAILY PO 09/01/21 09:00 09/02/21 08:33 Ascorbic Acid (Vitamin C) 1,000 mg DAILY PO 09/01/21 09:00 09/02/21 08:33 Aztreonam 2 gm/ Dextrose 100 ml @ 100 mls/hr Q8H IV 09/01/21 06:00 09/02/21 05:18 Calcium Carbonate (Tums) 500 mg BID PRN PO INDIGESTION 08/31/21 20:15 Cetirizine HCl (ZyrTEC) 10 mg DAILY PO 09/01/21 09:00 09/02/21 08:34 Clindamycin Phosphate 900 mg/ IV Miscellaneous Supplies 50 ml @ 50 mls/hr Q8H IV 08/31/21 22:00 09/01/21 01:41 DC 08/31/21 23:53 Clonazepam (KlonoPIN) 0.5 mg BIDP PRN PO ANXIETY 08/31/21 20:15 Dextrose (Dextrose 50%) 25 ml ASDIRECTED PRN IV SEE LABEL COMMENTS 08/31/21 20:35 Diphenhydramine HCl (Benadryl) 50 mg Q6H PRN PO rash 08/31/21 21:45 08/31/21 22:49 Duloxetine HCl (Cymbalta) 120 mg QHS PO 08/31/21 21:00 09/01/21 20:33 Esmolol HCl (Brevibloc) 10 mg ASDIRECTED PRN IV For hr>125 MAY REPEAT up to 5x 08/31/21 21:00 08/31/21 23:00 DC Fentanyl Citrate (Sublimaze) 25 mcg Q5MP PRN IV PAIN LEVEL 8-10 08/31/21 19:10 08/31/21 21:12 DC 08/31/21 20:35 Glucagon (Glucagon) 1 mg ASDIRECTED PRN SC SEE LABEL COMMENTS 08/31/21 20:35 Glucose (Glucose) 16 GM ASDIRECTED PRN PO SEE LABEL COMMENTS 08/31/21 20:35 Heparin Sodium (Porcine) (Heparin) 5,000 units Q8H SQ 08/31/21 22:00 09/02/21 09:54 DC 09/02/21 05:18 Insulin Detemir (Levemir Insulin) 5 units QHS ID 09/01/21 02:40 09/01/21 20:31 Insulin Detemir (Levemir Insulin) 5 units QHS ID 09/01/21 21:00 09/01/21 02:38 DC Insulin Detemir (Levemir Insulin) 10 units QHS SC 08/31/21 21:00 09/01/21 20:30 Insulin Human Lispro (HumaLOG INSULIN) SEE PROTOCOL TABLE AC ID 09/01/21 07:30 09/01/21 02:15 DC Insulin Human Lispro (HumaLOG INSULIN) SEE PROTOCOL TABLE AC ID 09/01/21 12:00 09/02/21 08:35 Insulin Human Lispro (HumaLOG INSULIN) SEE PROTOCOL TABLE Q6H ID 09/01/21 00:00 09/01/21 10:11 DC 09/01/21 06:10 Insulin Human Lispro (HumaLOG INSULIN) SEE PROTOCOL TABLE QHS ID 08/31/21 21:00 09/01/21 02:15 DC 08/31/21 22:47 Insulin Human Lispro (HumaLOG INSULIN) SEE PROTOCOL TABLE QHS ID 09/01/21 21:00 09/01/21 20:31 Lactated Ringer's 1,000 ml @ 100 mls/hr Q10H IV 08/31/21 18:55 09/01/21 01:48 DC 08/31/21 20:28 Lactated Ringer's 1,000 ml @ 100 mls/hr Q10H IV 08/31/21 19:10 08/31/21 21:12 DC 08/31/21 19:10 Lactated Ringer's 1,000 ml @ 120 mls/hr Q8H20M IV 09/01/21 01:45 09/01/21 10:11 DC 09/01/21 02:23 Lactated Ringer's 1,000 ml @ 999 mls/hr Q1H1M IV 08/31/21 20:20 08/31/21 21:20 DC 08/31/21 18:40 Latanoprost (Xalatan 0.005% Op Soln) 1 drop QPM OU 08/31/21 21:00 09/01/21 20:32 Levetiracetam (Keppra) 500 mg BID PO 08/31/21 21:00 09/02/21 08:34 Lidocaine HCl (LIDOCAINE 1% MDV 20ml) 0.1 ml ONCE PRN SQ DISCOMFORT BEFORE IV START 08/31/21 06:00 Losartan Potassium (Cozaar) 50 mg DAILY PO 09/01/21 09:00 09/01/21 00:40 DC Metoclopramide HCl (REGLAN INJection) 10 mg Q6HP PRN IV NAUSEA OR VOMITING 08/31/21 19:10 08/31/21 20:23 DC Metoprolol Tartrate (Lopressor) 1 mg Q5MP PRN IV SEE LABEL COMMENTS 08/31/21 19:10 08/31/21 21:12 DC 08/31/21 20:45 Morphine Sulfate (Morphine Sulfate Inj) 2 mg Q3H PRN IV SEVERE PAIN (PS 8-10) 08/31/21 18:55 09/01/21 23:23 Norepinephrine Bitartrate 8 mg/ Dextrose 500 ml @ 15 mls/hr Q24H IV 09/01/21 01:30 09/01/21 22:56 DC 09/01/21 02:24 Omeprazole (PriLOSEC) 40 mg DAILY PO 09/01/21 09:00 09/02/21 08:34 Ondansetron HCl (ZOFRAN INJection) 4 mg Q4H PRN IV NAUSEA OR VOMITING 08/31/21 18:55 09/01/21 00:42 Ondansetron HCl (ZOFRAN INJection) 4 mg Q4HP PRN IV NAUSEA OR VOMITING 08/31/21 19:10 08/31/21 21:12 DC Oxycodone/ Acetaminophen (Percocet 5mg/ 325mg Tablet) 1 tab ASDIRECTED PRN PO PAIN LEVEL 1-4 08/31/21 19:10 08/31/21 21:12 DC 08/31/21 20:29 Simvastatin (Zocor) 20 mg QHS PO 08/31/21 21:00 09/01/21 20:32 Tizanidine HCl (Zanaflex) 4 mg QHS PO 08/31/21 21:00 09/01/21 20:32 Topiramate (TopAMAX) 50 mg QHS PO 08/31/21 21:00 09/01/21 20:32 Tramadol HCl (Ultram) 50 mg Q6HP PRN PO MODERATE PAIN (PS 5-7) 08/31/21 18:55 Trazodone HCl (Desyrel) 100 mg QHS PO 08/31/21 21:00 09/01/21 20:32 Vancomycin HCl 1000 mg/IV Miscellaneous Supplies 1 each/ Sodium Chloride 270 ml @ 270 mls/hr Q12H IV 09/01/21 20:00 09/01/21 20:05 DC Vitamin D (Vitamin D) 2,000 units DAILY PO 09/01/21 09:00 09/02/21 08:33 Allergies Coded Allergies: Gadolinium-Containing Contrast Medi (Verified Allergy, Severe, anaphylaxis, 08/31/21) Contrast Media (Verified Allergy, Intermediate, hives, 08/31/21) Sulfa (Sulfonamide Antibiotics) (Verified Allergy, Mild, hives, 08/31/21) amoxicillin (Verified Allergy, Mild, rash, 08/31/21) propranolol (Verified Allergy, Mild, hives, 08/31/21) valproic acid (Verified Allergy, Mild, hives, 08/31/21) Tricyclic Compounds (Verified Adverse Reaction, Mild, mouth sores, 08/31/21) amitriptyline (Verified Adverse Reaction, Mild, mouth sores, 08/31/21) gabapentin (Verified Adverse Reaction, Mild, orbital pain, 08/31/21) lidocaine (Verified Adverse Reaction, Mild, elevated heart rate, 08/31/21) PATIENT STATES HER REACTION IS ONLY TO THE LIDOCAINE PATCH, NOT THE INJECTABLE LIDOCAINE magnesium (Verified Adverse Reaction, Mild, mouth sores, 08/31/21) pregabalin (Verified Adverse Reaction, Mild, orbital pain, 08/31/21) zinc (Verified Adverse Reaction, Mild, mouth sores, 08/31/21) Objective Physical Examination Examination GENERAL APPEARANCE: Patient seen, laying in bed, awake, alert, and oriented. BREAST: bilateral breasts are absent surgically. There are two LUIS EDUARDO drains in the right and 1 LUIS EDUARDO drain on the left. All of the drains are with sanguinous drainage. On palpation on the chest there seems to be fluid accumulation in the right chest under mastectomy flap consistent with hematoma. This did not enlarge since previous exam. Mastectomy flaps are viable. There is ecchymotic extension in the right flank area LUNGS: Not in respiratory distress HEART: Patient is mildly tachycardic ABDOMEN: Abdomen is soft EXTREMITIES: Patient moves her upper extremities without any issues. The left hand is softer and the edema decreased from previous IV infiltration Vital Signs Vital Signs Date Time Temp Pulse Resp B/P (MAP) Pulse Ox O2 Delivery O2 Flow Rate FiO2 09/02/21 08:43 97.5 102 16 146/63 (90) 97 Room Air 08/31/21 22:00 0.5 I&Os I&O- Last 24 Hours up to 6 AM 09/02/21 06:00 Intake Total 4927 ml Output Total 6250 ml Balance -1323 ml Laboratory Data Labs 24H Laboratory Tests 2 09/01/21 12:38: Bedside Glucose (Misc Panel) 182H 09/01/21 16:05: Bedside Glucose (Misc Panel) 217H 09/01/21 16:19: Lactic Acid Level 2.3*H 09/01/21 20:17: Bedside Glucose (Misc Panel) 284H 09/01/21 21:21: Lactic Acid Followup at 4 Hours 2.3*H 09/02/21 05:47: Immature Granulocyte % (Auto) 1.0, Neutrophils (%) (Auto) 73.1H, Lymphocytes (%) (Auto) 18.9L, Monocytes (%) (Auto) 6.6, Eosinophils (%) (Auto) 0.1, Basophils (%) (Auto) 0.3, Neutrophils # (Auto) 10.7H, Lymphocytes # (Auto) 2.8, Monocytes # (Auto) 1.0H, Eosinophils # (Auto) 0.0, Basophils # (Auto) 0.1, Nucleated Red Blood Cells % (auto) 0.3H, Anion Gap 10, Glomerular Filtration Rate > 60.0, Calcium Level 8.5, Magnesium Level 2.1 CBC/BMP Laboratory Tests 09/02/21 05:47 Microbiology Microbiology 09/01/21 Blood Culture - Preliminary, Resulted No growth after 24 hours . All specim... 09/01/21 Blood Culture - Preliminary, Resulted No growth after 24 hours . All specim... Impression Assessment/Plan Impression The patient is a 51-year-old female admitted with a reason for visit of Right Breast Cancer, status post neoadjuvant therapy, s/p bilateral simple mastectomy with right sentinel lymph node biopsy done on 08/31/2021. Procedure was complicated by left arm IV infiltration, tachycardia, and right chest wall hematoma Transferred out of ICU to PCU, required 1 u RBC transfusion - Med management per hospitalist team, greatly appreciate help with taking care of Ms. Cloud - Monitor drains, please strip drains per order - Monitor right chest hematoma and LUIS EDUARDO drainage, if continues to be high for next 24 h will likely need to go back to OR for exploration and hematoma evacuation - Keep SUJATHA wrap in place - stopped sq sq heparin, continue SCDs - encourage IS - will follow closely - case discussed with Nursing staff and Medicine team Plan / VTE VTE Prophylaxis Ordered?: Yes VTE Exclusion Pharmacological: Active Bleeding FABIENNE MOLINA DO Sep 02, 2021 10:29
[2021-09-02 17:07] LABS: HEMATOCRIT 26.4 % (36.0-47.0); HEMOGLOBIN 8.5 g/dl (12.0-15.5)
--- NOTE | 2021-09-02 17:39 | IPNPDOC ---
Date Seen The patient was seen on 09/02/21. Progress Note SUBJECTIVE: Seen examined at bedside. Status post double simple mastectomy with right sentinel lymph node biopsy on 08/31/2021. Shock resolved. BP stable overnight. Bilateral drains put out ~480 cc each. Hemodynamically stable. Tachycardia resolved. Hgb 7.2. Obtained consent for blood transfusion, ordered 1 unit pRBC. OBJECTIVE PHYSICAL EXAMINATION: VITAL SIGNS: please see below General: NAD, comfortable HEENT: PERRLA, EOMI, sclerae clear Neck: supple, normal ROM, no JVD Respiratory: lungs CTAB, no wheeze, no rales, no crackles Chest: dressings are intact, clean, bilateral LUIS EDUARDO drains in situ. CVS: RRR, normal S1, S2, no murmurs Abdo: soft, no masses, no hepatosplenomegaly, BS+, no rebound tenderness Extremities: no edema, pulses 2+ MSK: no joint deformities, normal ROM Neuro: no focal neuro deficits, moving all 4 extremities, CN2-12 intact. Strength 5/5 in all 4 extremities. No nystagmus. Psych: calm, cooperative, AAO x 3 LABORATORY DATA, IMAGING STUDIES, MICROBIOLOGY: Please see below. CT angiogram of the abdomen and pelvis on 09/01/2021 1. No acute abdominopelvic pathology appreciated. 2. Mild to moderate fecal stasis cannot be excluded. 3. Patient is status post bilateral mastectomy. CT angio chest on 09/01/2021 1. The examination is suboptimal, however, there is no evidence of an acute pulmonary embolism. Consider follow-up. 2. Lung field opacities most consistent with subsegmental atelectatic changes. Follow-up is suggested. 3. Other findings and exam limitations as described above. Follow-up is recommended. DVT prophylaxis ordered?: Heparin 5000 units subcu ASSESSMENT AND PLAN: 51-year-old female with a history of type 2 diabetes glaucoma obesity hypertension ER positive NM positive HER-2 breast cancer status post bilateral mastectomy with right sentinel lymph node biopsy on 08/31/[address] Velez. Procedure was complicated by left arm IV infiltration causing left arm swelling and post procedure hypotension and shock not responding to fluid resuscitation. Patient required IV pressors to maintain blood pressure. PROBLEMS: Shock - resolved -Lactic acidosis with hypotension requiring the use of Levophed. - Presently aztreonam and clindamycin - tachycardia has improved - WBC trending down - CT angiogram does not show intra-abdominal process no other PEs found in the CT angiogram of the chest. - suspect possibly 2/2 hypovolemia vs drug reaction - low suspicion for infection, however will continue with antibiotics. #Status post bilateral mastectomy/R surgical site hematoma Continue incentive spirometry - bilateral LUIS EDUARDO drains are high output, serosanginous, ~480 cc each - per Dr. Velez, may require exploration and evacuation of R surgical site hematoma -pain controled #Acute anemia - multifactorial: signfificant serosanguinous drainage from bilateral LUIS EDUARDO drains, as well as dilutional effect - Hgb 7.2 this morning - transfused 1 unit pRBC, hgb improved to 8.5 #Hypertension - hold home meds (losartan) #Hyperlipidemia simvastatin #GERD omeprazole #Glaucoma latanoprost #Anxiety duloxetine prn clonazepam #Complex regional pain syndrome -Keppra home dose tizanidine home dose Topamax home dose #Diabetes type 2 takes 38 units detemir, on 10 units at present - ISS and FSBS AC and HS #Class 3 obesity -BMI 40.5, complicating care. DVT ppx: stopped heparin due to acute anemia. SCDs. TEDs. VS, I&O, 24H, Fishbone Vital Signs/I&O Vital Signs Date Time Temp Pulse Resp B/P (MAP) Pulse Ox O2 Delivery O2 Flow Rate FiO2 09/02/21 13:15 96.5 96 16 105/52 99 Room Air 08/31/21 22:00 0.5 I&O- Last 24 Hours up to 6 AM 09/02/21 06:00 Intake Total 4927 ml Output Total 6250 ml Balance -1323 ml Laboratory Data 24H LABS Laboratory Tests 2 09/01/21 20:17: Bedside Glucose (Misc Panel) 284H 09/01/21 21:21: Lactic Acid Followup at 4 Hours 2.3*H 09/02/21 05:47: Immature Granulocyte % (Auto) 1.0, Neutrophils (%) (Auto) 73.1H, Lymphocytes (%) (Auto) 18.9L, Monocytes (%) (Auto) 6.6, Eosinophils (%) (Auto) 0.1, Basophils (%) (Auto) 0.3, Neutrophils # (Auto) 10.7H, Lymphocytes # (Auto) 2.8, Monocytes # (Auto) 1.0H, Eosinophils # (Auto) 0.0, Basophils # (Auto) 0.1, Nucleated Red Blood Cells % (auto) 0.3H, Anion Gap 10, Glomerular Filtration Rate > 60.0, Calcium Level 8.5, Magnesium Level 2.1 09/02/21 11:23: Bedside Glucose (Misc Panel) 107H 09/02/21 16:57: Bedside Glucose (Misc Panel) 175H CBC/BMP Laboratory Tests 09/02/21 05:47 09/02/21 16:32 Microbiology Microbiology 09/01/21 Blood Culture - Preliminary, Resulted No growth after 24 hours . All specim... 09/01/21 Blood Culture - Preliminary, Resulted No growth after 24 hours . All specim... FABIOLA ARAIZA MD Sep 02, 2021 17:39
--- NOTE | 2021-09-02 20:42 | ECGEPIP ---
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 No significant change compared with 08/26/21 Electronically Signed on 09-02-2021 20:42:25 EST by Travon Serra
--- NOTE | 2021-09-02 20:57 | ECGEPIP ---
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
[2021-09-02] MEDS: MORPHINE 2 MG/ML 1ML VIAL (J2270) IV PRN (21:31)
[2021-09-02] MEDS: TOPIRAMATE (TopAMAX) 25 MG TAB PO SCH (21:40)
[2021-09-02] MEDS: NS 1,000 ML IV SCH (21:40)
[2021-09-02] MEDS: tiZANidine 4 MG TAB PO SCH (21:41)
[2021-09-02] MEDS: traZODone 100 MG TAB PO SCH (21:41)
[2021-09-02] MEDS: SIMVASTATIN 20 MG TAB PO SCH (21:41)
[2021-09-02] MEDS: DULoxetine 30MG CAPSULE (CYMBALTA) PO SCH (21:41)
[2021-09-02] MEDS: LEVEMIR (INSULIN DETEMIR) 1 UNITS/0.01ML SC SCH ×2 (21:47)
[2021-09-02] MEDS: LATANOPROST 0.005% OPHTH SOLN 2.5 ML OU SCH (21:51)
[2021-09-03] VITALS (29 sets, daily range): BP systolic 66–151; BP diastolic 40–95
[2021-09-03] MEDS ORDERED: NS 1,000 ML IV ONE ×2 (00:40→01:30)
[2021-09-03 01:28] LABS: BASO # 0.1 10^3/uL (0.0-0.2); BASO % 0.8 % (0.0-1.0); EOS # 0.2 10^3/uL (0.0-0.5); EOS % 1.8 % (0.0-3.0); HEMATOCRIT 22.3 % (36.0-47.0); HEMOGLOBIN 7.1 g/dl (12.0-15.5); LYMPH # 3.1 10^3/uL (1.5-5.0); LYMPH % 33.2 % (24.0-44.0); MEAN CORPUSCULAR HEMOGLOBIN 30.1 pg (27.0-33.0); MEAN CORPUSCULAR HGB CONC 31.8 g/dl (32.0-36.5); MEAN CORPUSCULAR VOLUME 94.5 fl (80.0-96.0); MONO # 0.6 10^3/uL (0.0-0.8); MONO % 6.5 % (2.0-8.0); NEUTROPHILS # 5.3 10^3/uL (1.5-8.5); NEUTROPHILS % 56.9 % (36.0-66.0); PLATELET COUNT, AUTOMATED 154 10^3/uL (150-450); RED BLOOD COUNT 2.36 10^6/uL (4.00-5.40); WHITE BLOOD COUNT 9.2 10^3/uL (4.0-10.0)
--- NOTE | 2021-09-03 01:52 | IPNPDOC ---
Text Note Date of Service The patient was seen on 09/03/21. VS,Fishbone, I+O VS, Fishbone, I+O Laboratory Tests 09/02/21 05:47 09/02/21 16:32 09/03/21 01:17 Vital Signs Date Time Temp Pulse Resp B/P (MAP) Pulse Ox O2 Delivery O2 Flow Rate FiO2 09/03/21 01:28 71 94 86/50 (62) Room Air 09/03/21 00:00 97.4 97 08/31/21 22:00 0.5 I&O- Last 24 Hours up to 6 AM 09/03/21 06:00 Intake Total 2840 ml Output Total 2910 ml Balance -70 ml JOLANTA ANNE MD Sep 03, 2021 01:51
--- NOTE | 2021-09-03 02:26 | IPNPDOC ---
Text Note Date of Service The patient was seen on 09/03/21. NOTE Time of service 155AM I was informed by Maxime Fuller that 's BP had dropped again and 2L bolus of IVF have been ordered. Her hg also dropped again to 7.1 and 1 unit of PRBCs have been ordered. Per d/w her RN about 160ml of bloody fluid has come out of the LUIS EDUARDO drains. She has urinated. She has received 1.6L of NS and her BP is 90/64. At the time of my face to face visit denied having any pain or acute c/o. #Hemorrhagic Shock Plan: upgrade to ICU/ reorder Levophed and aim to maintain MAP of 70 / call to give her an update / consult for co-management. VS,Fishbone, I+O VS, Fishbone, I+O Laboratory Tests 09/02/21 05:47 09/02/21 16:32 09/03/21 01:17 Vital Signs Date Time Temp Pulse Resp B/P (MAP) Pulse Ox O2 Delivery O2 Flow Rate FiO2 09/03/21 01:28 71 94 86/50 (62) Room Air 09/03/21 00:00 97.4 97 08/31/21 22:00 0.5 I&O- Last 24 Hours up to 6 AM 09/03/21 06:00 Intake Total 2840 ml Output Total 2910 ml Balance -70 ml JOLANTA ANNE MD Sep 03, 2021 02:26
[2021-09-03] MEDS ORDERED: EPINEPHrine INJ 1 MG/ML 1ML AMP SC STA (02:32)
[2021-09-03] MEDS ORDERED: HYDROCORTISONE 100 MG/2 ML VIAL (J1720 PER 1) IV ONE (02:35)
[2021-09-03 04:22] LABS: BASO # 0.1 10^3/uL (0.0-0.2); BASO % 0.9 % (0.0-1.0); EOS # 0.2 10^3/uL (0.0-0.5); EOS % 2.2 % (0.0-3.0); HEMATOCRIT 25.3 % (36.0-47.0); HEMOGLOBIN 8.1 g/dl (12.0-15.5); LYMPH # 3.1 10^3/uL (1.5-5.0); LYMPH % 34.2 % (24.0-44.0); MEAN CORPUSCULAR VOLUME 93.7 fl (80.0-96.0); MONO # 0.7 10^3/uL (0.0-0.8); MONO % 7.1 % (2.0-8.0); NEUTROPHILS # 5.1 10^3/uL (1.5-8.5); NEUTROPHILS % 55.1 % (36.0-66.0); PLATELET COUNT, AUTOMATED 161 10^3/uL (150-450); WHITE BLOOD COUNT 9.2 10^3/uL (4.0-10.0)
[2021-09-03 04:40] LABS: ERYTHROCYTE SEDIMENTATION RATE 27 mm/hr (0-30)
[2021-09-03 04:42] LABS: BLOOD UREA NITROGEN 8 MG/DL (7-18); C REACTIVE PROTEIN QUANTITATIV 1.64 MG/DL (0.00-0.30); CALCIUM LEVEL 7.4 MG/DL (8.5-10.1); CARBON DIOXIDE LEVEL 27 MEQ/L (21-32); CHLORIDE LEVEL 114 MEQ/L (98-107); CREATININE FOR GFR 0.63 MG/DL (0.55-1.30); GLOMERULAR FILTRATION RATE > 60.0 (>51); GLUCOSE, FASTING 115 MG/DL (70-100); SODIUM LEVEL 143 MEQ/L (136-145)
[2021-09-03] MEDS: AZTREONAM 2 GM in D5W MINI-BAG PLUS 100 ML IV SCH ×3 (06:01→21:43)
[2021-09-03] MEDS: HumaLOG INSULIN (NovoLOG) PER UNIT SC SCH ×4 (07:27→21:55)
[2021-09-03] MEDS: NS 1,000 ML IV SCH ×2 (07:27→21:34)
[2021-09-03] MEDS: VITAMIN D 1,000 INTERNATIONAL UNITS TABLET PO SCH (09:00)
[2021-09-03] MEDS: ASCORBIC ACID 500 MG TAB PO SCH (09:00)
[2021-09-03] MEDS: CETIRIZINE (ZyrTEC) 10 MG TAB PO SCH (09:00)
[2021-09-03] MEDS: OMEPRAZOLE 20 MG CAP PO SCH (09:00)
[2021-09-03] MEDS: levETIRAcetam 250MG TABLET (KEPPRA) PO SCH ×2 (09:00→21:42)
[2021-09-03] MEDS ORDERED: MIDAZOLAM INJ 2MG/2ML VIAL (J2250 PER 1MG) As Ordered ONE (10:12)
[2021-09-03] MEDS ORDERED: propofoL 200 MG/20 ML VIAL As Ordered ONE (10:13)
[2021-09-03] MEDS ORDERED: fentaNYL 100 MCG/2 ML INJECTION (J3010) As Ordered ONE (10:13)
[2021-09-03] MEDS ORDERED: LIDOCAINE 2% 100MG/5ML SDV (FOR ANES.) As Ordered ONE (10:13)
--- NOTE | 2021-09-03 10:21 | IPNPDOC ---
Subjective General Date Seen: Sep 03, 2021 (8 am) Subject Chief Complaint/History The patient is a 51-year-old female admitted with a reason for visit of Right Breast Cancer, status post neoadjuvant therapy, s/p bilateral simple mastectomy with right sentinel lymph node biopsy done on 08/31/2021. Procedure was complic ated by left arm IV infiltration causing left arm swelling and post procedure tachycardia not responding to 2 L of fluid bolus. Patient was admitted to ICU from recovery for close observation. Her blood pressure dropped and she required pressors overnight. Patient developed right chest wall hematoma. Her chest was wrapped with SUJATHA wrap. She does have significant drainage from both mastectomy sites - over 480 cc per side per 24 h Her tachycardia improved, Her hemoglobin dropped to 7 ans she required 1 u of PRBC, she was transferred to PCCU on POD 2 Her BP dropped again in AM of POD3 and she required transfer back to ICU and another unit of blood due to low HB. Current Medications Current Medications Current Medications Medications (Trade) Dose Ordered Sig/Pavithra Route PRN Reason Start Time Stop Time Status Last Admin Dose Admin Acetaminophen (Tylenol Tab) 650 mg Q6H PRN PO MILD PAIN (PS 1-4) 08/31/21 18:55 Amiodarone HCl 150 mg/IV Miscellaneous Supplies 100 ml @ 600 mls/hr STAT STAT IV 09/01/21 01:25 09/01/21 02:11 DC Aripiprazole (AbiLIFY) 7.5 mg DAILY PO 09/01/21 09:00 09/02/21 08:33 Ascorbic Acid (Vitamin C) 1,000 mg DAILY PO 09/01/21 09:00 09/02/21 08:33 Aztreonam 2 gm/ Dextrose 100 ml @ 100 mls/hr Q8H IV 09/01/21 06:00 09/03/21 06:01 Calcium Carbonate (Tums) 500 mg BID PRN PO INDIGESTION 08/31/21 20:15 Cetirizine HCl (ZyrTEC) 10 mg DAILY PO 09/01/21 09:00 09/02/21 08:34 Clindamycin Phosphate 900 mg/ IV Miscellaneous Supplies 50 ml @ 50 mls/hr Q8H IV 08/31/21 22:00 09/01/21 01:41 DC 08/31/21 23:53 Clonazepam (KlonoPIN) 0.5 mg BIDP PRN PO ANXIETY 08/31/21 20:15 Dextrose (Dextrose 50%) 25 ml ASDIRECTED PRN IV SEE LABEL COMMENTS 08/31/21 20:35 Diphenhydramine HCl (Benadryl) 50 mg Q6H PRN PO rash 08/31/21 21:45 08/31/21 22:49 Duloxetine HCl (Cymbalta) 120 mg QHS PO 08/31/21 21:00 09/02/21 21:41 Epinephrine HCl (Adrenalin) 0.5 mg STAT STAT SC 09/03/21 02:32 09/03/21 02:40 DC Esmolol HCl (Brevibloc) 10 mg ASDIRECTED PRN IV For hr>125 MAY REPEAT up to 5x 08/31/21 21:00 08/31/21 23:00 DC Fentanyl Citrate (Sublimaze) 25 mcg Q5MP PRN IV PAIN LEVEL 8-10 08/31/21 19:10 08/31/21 21:12 DC 08/31/21 20:35 Glucagon (Glucagon) 1 mg ASDIRECTED PRN SC SEE LABEL COMMENTS 08/31/21 20:35 Glucose (Glucose) 16 GM ASDIRECTED PRN PO SEE LABEL COMMENTS 08/31/21 20:35 Heparin Sodium (Porcine) (Heparin) 5,000 units Q8H SQ 08/31/21 22:00 09/02/21 09:54 DC 09/02/21 05:18 Insulin Detemir (Levemir Insulin) 5 units QHS SC 09/01/21 02:40 09/02/21 21:47 Insulin Detemir (Levemir Insulin) 5 units QHS SC 09/01/21 21:00 09/01/21 02:38 DC Insulin Detemir (Levemir Insulin) 10 units QHS SC 08/31/21 21:00 09/02/21 21:47 Insulin Human Lispro (HumaLOG INSULIN) SEE PROTOCOL TABLE AC SC 09/01/21 07:30 09/01/21 02:15 DC Insulin Human Lispro (HumaLOG INSULIN) SEE PROTOCOL TABLE AC SC 09/01/21 12:00 09/02/21 17:43 Insulin Human Lispro (HumaLOG INSULIN) SEE PROTOCOL TABLE Q6H SC 09/01/21 00:00 09/01/21 10:11 DC 09/01/21 06:10 Insulin Human Lispro (HumaLOG INSULIN) SEE PROTOCOL TABLE [facility] 08/31/21 21:00 09/01/21 02:15 DC 08/31/21 22:47 Insulin Human Lispro (HumaLOG INSULIN) SEE PROTOCOL TABLE [facility] 09/01/21 21:00 09/01/21 20:31 Lactated Ringer's 1,000 ml @ 100 mls/hr Q10H IV 08/31/21 18:55 09/01/21 01:48 DC 08/31/21 20:28 Lactated Ringer's 1,000 ml @ 100 mls/hr Q10H IV 08/31/21 19:10 08/31/21 21:12 DC 08/31/21 19:10 Lactated Ringer's 1,000 ml @ 120 mls/hr Q8H20M IV 09/01/21 01:45 09/01/21 10:11 DC 09/01/21 02:23 Lactated Ringer's 1,000 ml @ 999 mls/hr Q1H1M IV 08/31/21 20:20 08/31/21 21:20 DC 08/31/21 18:40 Latanoprost (Xalatan 0.005% Op Soln) 1 drop QPM OU 08/31/21 21:00 09/02/21 21:51 Levetiracetam (Keppra) 500 mg BID PO 08/31/21 21:00 09/02/21 21:41 Lidocaine HCl (LIDOCAINE 1% MDV 20ml) 0.1 ml ONCE PRN SQ DISCOMFORT BEFORE IV START 08/31/21 06:00 Losartan Potassium (Cozaar) 50 mg DAILY PO 09/01/21 09:00 09/01/21 00:40 DC Metoclopramide HCl (REGLAN INJection) 10 mg Q6HP PRN IV NAUSEA OR VOMITING 08/31/21 19:10 08/31/21 20:23 DC Metoprolol Tartrate (Lopressor) 1 mg Q5MP PRN IV SEE LABEL COMMENTS 08/31/21 19:10 08/31/21 21:12 DC 08/31/21 20:45 Morphine Sulfate (Morphine Sulfate Inj) 2 mg Q3H PRN IV SEVERE PAIN (PS 8-10) 08/31/21 18:55 09/02/21 21:31 Norepinephrine Bitartrate 8 mg/ Dextrose 500 ml @ 15 mls/hr Q24H IV 09/01/21 01:30 09/01/21 22:56 DC 09/01/21 02:24 Omeprazole (PriLOSEC) 40 mg DAILY PO 09/01/21 09:00 09/02/21 08:34 Ondansetron HCl (ZOFRAN INJection) 4 mg Q4H PRN IV NAUSEA OR VOMITING 08/31/21 18:55 09/01/21 00:42 Ondansetron HCl (ZOFRAN INJection) 4 mg Q4HP PRN IV NAUSEA OR VOMITING 08/31/21 19:10 08/31/21 21:12 DC Oxycodone/ Acetaminophen (Percocet 5mg/ 325mg Tablet) 1 tab ASDIRECTED PRN PO PAIN LEVEL 1-4 08/31/21 19:10 08/31/21 21:12 DC 08/31/21 20:29 Simvastatin (Zocor) 20 mg QHS PO 08/31/21 21:00 09/02/21 21:41 Sodium Chloride 1,000 ml @ 80 mls/hr [id number] IV 09/02/21 19:00 09/03/21 07:27 Tizanidine HCl (Zanaflex) 4 mg QHS PO 08/31/21 21:00 09/02/21 21:41 Topiramate (TopAMAX) 50 mg QHS PO 08/31/21 21:00 09/02/21 21:40 Tramadol HCl (Ultram) 50 mg Q6HP PRN PO MODERATE PAIN (PS 5-7) 08/31/21 18:55 Trazodone HCl (Desyrel) 100 mg QHS PO 08/31/21 21:00 09/02/21 21:41 Vancomycin HCl 1000 mg/IV Miscellaneous Supplies 1 each/ Sodium Chloride 270 ml @ 270 mls/hr Q12H IV 09/01/21 20:00 09/01/21 20:05 DC Vitamin D (Vitamin D) 2,000 units DAILY PO 09/01/21 09:00 09/02/21 08:33 Allergies Coded Allergies: Gadolinium-Containing Contrast Medi (Verified Allergy, Severe, anaphylaxis, 08/31/21) Contrast Media (Verified Allergy, Intermediate, hives, 08/31/21) Sulfa (Sulfonamide Antibiotics) (Verified Allergy, Mild, hives, 08/31/21) amoxicillin (Verified Allergy, Mild, rash, 08/31/21) propranolol (Verified Allergy, Mild, hives, 08/31/21) valproic acid (Verified Allergy, Mild, hives, 08/31/21) Tricyclic Compounds (Verified Adverse Reaction, Mild, mouth sores, 08/31/21) amitriptyline (Verified Adverse Reaction, Mild, mouth sores, 08/31/21) gabapentin (Verified Adverse Reaction, Mild, orbital pain, 08/31/21) lidocaine (Verified Adverse Reaction, Mild, elevated heart rate, 08/31/21) PATIENT STATES HER REACTION IS ONLY TO THE LIDOCAINE PATCH, NOT THE INJECTABLE LIDOCAINE magnesium (Verified Adverse Reaction, Mild, mouth sores, 08/31/21) pregabalin (Verified Adverse Reaction, Mild, orbital pain, 08/31/21) zinc (Verified Adverse Reaction, Mild, mouth sores, 08/31/21) Objective Physical Examination Examination GENERAL APPEARANCE: Patient seen, laying in bed, awake, alert, and oriented. BREAST: bilateral breasts are absent surgically. There are two LUIS EDUARDO drains in the right and 1 LUIS EDUARDO drain on the left. All of the drains are with sanguinous drainage. On palpation on the chest there seems to be fluid accumulation in the right chest under mastectomy flap consistent with hematoma. Mastectomy flaps are viable. There is ecchymotic extension in the right flank area LUNGS: Not in respiratory distress HEART: Patient is mildly tachycardic ABDOMEN: Abdomen is soft EXTREMITIES: Patient moves her upper extremities without any issues. The left hand is softer and the edema decreased from previous IV infiltration Vital Signs Vital Signs Date Time Temp Pulse Resp B/P (MAP) Pulse Ox O2 Delivery O2 Flow Rate FiO2 09/03/21 08:00 80 16 130/69 (89) 92 09/03/21 07:47 Room Air 09/03/21 04:15 97.0 08/31/21 22:00 0.5 I&Os I&O- Last 24 Hours up to 6 AM 09/03/21 06:00 Intake Total 3640 ml Output Total 2910 ml Balance 730 ml Laboratory Data Labs 24H Laboratory Tests 2 09/02/21 11:23: Bedside Glucose (Misc Panel) 107H 09/02/21 16:57: Bedside Glucose (Misc Panel) 175H 09/02/21 21:46: Bedside Glucose (Misc Panel) 132H 09/03/21 01:17: Immature Granulocyte % (Auto) 0.8, Neutrophils (%) (Auto) 56.9, Lymphocytes (%) (Auto) 33.2, Monocytes (%) (Auto) 6.5, Eosinophils (%) (Auto) 1.8, Basophils (%) (Auto) 0.8, Neutrophils # (Auto) 5.3, Lymphocytes # (Auto) 3.1, Monocytes # (Auto) 0.6, Eosinophils # (Auto) 0.2, Basophils # (Auto) 0.1, Nucleated Red Blood Cells % (auto) 0.4H 09/03/21 04:09: Immature Granulocyte % (Auto) 0.5, Neutrophils (%) (Auto) 55.1, Lymphocytes (%) (Auto) 34.2, Monocytes (%) (Auto) 7.1, Eosinophils (%) (Auto) 2.2, Basophils (%) (Auto) 0.9, Neutrophils # (Auto) 5.1, Lymphocytes # (Auto) 3.1, Monocytes # (Auto) 0.7, Eosinophils # (Auto) 0.2, Basophils # (Auto) 0.1, Nucleated Red Blood Cells % (auto) 0.5H, Erythrocyte Sedimentation Rate 27, Anion Gap 2L, Glomerular Filtration Rate > 60.0, Lactic Acid Level 1.3, Calcium Level 7.4L, C- Reactive Protein, Quantitative 1.64H, Procalcitonin 0.08 09/03/21 06:00: Bedside Glucose (Misc Panel) 103 CBC/BMP Laboratory Tests 09/02/21 16:32 09/03/21 01:17 09/03/21 04:09 Microbiology Microbiology 09/03/21 Respiratory Virus Panel (PCR) ([facility]), Received Pending 09/01/21 Blood Culture - Preliminary, Resulted No Growth after 48 hours. All Specime... 09/01/21 Blood Culture - Preliminary, Resulted No Growth after 48 hours. All Specime... Impression The patient is a 51-year-old female admitted with a reason for visit of Right Breast Cancer, status post neoadjuvant therapy, s/p bilateral simple mastectomy with right sentinel lymph node biopsy done on 08/31/2021. Procedure was complicated by left arm IV infiltration, tachycardia, and right chest wall hematoma, hypotension, s/p 2 u PRBC - NPO since 2 am w IVF - STAT cardiac Echo preop - OR today for hematoma evacuation and washout - Med management per hospitalist team, greatly appreciate help with taking care of Ms. Cloud - Monitor drains, please strip drains per order - holding sq heparin due to bleeding, continue SCDs - case discussed with medicine team Plan / VTE VTE Prophylaxis Ordered?: Yes VTE Exclusion Pharmacological: Active Bleeding FABIENNE MOLINA DO Sep 03, 2021 10:14
[2021-09-03] MEDS ORDERED: ONDANSETRON 4MG/2ML VIAL As Ordered ONE (13:41)
[2021-09-03] MEDS ORDERED: dexameTHASONE 4 MG/ML 1ML VIAL (J1100 PER 1MG) As Ordered ONE (13:41)
--- NOTE | 2021-09-03 13:43 | IPNPDOC ---
Date Seen The patient was seen on 09/03/21. Progress Note SUBJECTIVE: Patient was seen and examined at bedside at ICU. She was transferred there overnight after she developed hypotension and required 2 L of normal saline as bolus. She was also found to have anemia with a hemoglobin of 7.1 and she was transfused with 1 unit of packed red blood cells. Her LUIS EDUARDO drains continued to put out approximately 160 mL of bloody fluid. She had adequate urine output. Fortunately her blood pressure remained low at 90/60. Dr. Thomas was contacted and given the patient's extensive list of allergies and recent use of contrast it was postulated that perhaps she is suffering from anaphylactic shock. She was administered hydrocortisone and diphendydramine. She did not have elevation in lactic acid. She is due for surgery for evacuation hematoma in the right surgical site. Given the patient's labile blood pressures and relapsing remitting shock, it was discussed with Dr. Morton that obtaining a preoperative echo was pertinent. Keeping in mind that patient had a normal echo in July 2021. Unfortunately due to the patient's extensive drains and surgical dressings echocardiogram tech was unable to perform an echocardiogram. I discussed this finding with And to call who said that we will have no choice but to proceed with surgically without the preoperative echo. OBJECTIVE PHYSICAL EXAMINATION: VITAL SIGNS: please see below General: NAD, comfortable HEENT: PERRLA, EOMI, sclerae clear Neck: supple, normal ROM, no JVD Respiratory: lungs CTAB, no wheeze, no rales, no crackles Chest: dressings are intact, clean, bilateral LUIS EDUARDO drains in situ. CVS: RRR, normal S1, S2, no murmurs Abdo: soft, no masses, no hepatosplenomegaly, BS+, no rebound tenderness Extremities: no edema, pulses 2+ MSK: no joint deformities, normal ROM Neuro: no focal neuro deficits, moving all 4 extremities, CN2-12 intact. Strength 5/5 in all 4 extremities. No nystagmus. Psych: calm, cooperative, AAO x 3 LABORATORY DATA, IMAGING STUDIES, MICROBIOLOGY: Please see below. CT angiogram of the abdomen and pelvis on 09/01/2021 1. No acute abdominopelvic pathology appreciated. 2. Mild to moderate fecal stasis cannot be excluded. 3. Patient is status post bilateral mastectomy. CT angio chest on 09/01/2021 1. The examination is suboptimal, however, there is no evidence of an acute pulmonary embolism. Consider follow-up. 2. Lung field opacities most consistent with subsegmental atelectatic changes. Follow-up is suggested. 3. Other findings and exam limitations as described above. Follow-up is recommended. DVT prophylaxis ordered?: Heparin 5000 units subcu ASSESSMENT AND PLAN: 51-year-old female with a history of type 2 diabetes glaucoma obesity hypertension ER positive SC positive HER-2 breast cancer status post bilateral mastectomy with right sentinel lymph node biopsy on 08/31/[address] Velez. Procedure was complicated by left arm IV infiltration causing left arm swelling and post procedure hypotension and shock not responding to f luid resuscitation. Patient required IV pressors to maintain blood pressure. PROBLEMS: Shock - patient's shock experienced on 09/01/21 had resolved - tachycardia, blood pressures and leukocytosis normalized - CT angiogram did not show intra-abdominal process no other PEs found in the CT angiogram of the chest. - suspect possibly 2/2 hypovolemia vs drug reaction vs allergic reaction - low suspicion for infection, however will continue with antibiotics (vanco, aztreonam Day 3) - patient developed recurrent hypotension on night of 09/02/21 - d/w Dr. Thomas, given extensive list of allergies, and recent use of contrast, anesthetic, as well as blood transfusion, it was postulated that patient suffered anaphylactic shock - she improved after admisnistration of 2L NS as well as 40 mg IV solumedrol, as well 50 mg IV benadryl - patient had a normal 2D echo performed on July 232020, but given hypotension we attempted to obtain a stat pre-op echo. Due to patient's drains, I was informed by RN that quality control engineering technician could not perform echo. I d/w Dr. Serra, we have no other options at this time. I am howevere reassusted by the normal EF (60-65%), and only trace mitral and tricuspid regurgitation. Patient also had anormal EKG peformed on 09/02/21. - at this stage, the benefit of undergoing surgical intervention to control bleeding outweighs delays of obtaining pre-op echo. At this stage, her RCRI score is 10.1%. GIven her persistent blood loss needing transfusion, benefits of OR outweigh risks. - I discussed the above with Dr. Mae, and have asked to review list of allergies prior to medication administration. - patient will be monitored in ICU after surgery. #Status post bilateral mastectomy/R surgical site hematoma Continue incentive spirometry - bilateral LUIS EDUARDO drains are high output, serosanginous, ~480 cc each - per Dr. Velez, may require exploration and evacuation of R surgical site hematoma - pain controled - for OR 09/03/21 #Acute anemia - multifactorial: signfificant serosanguinous drainage from bilateral LUIS EDUARDO drains, as well as dilutional effect - Hgb 7.1 overnight, improved to 8.1 after 2nd unit total - total of 3 units of pRBC transfused (last one pre-op) #Hypertension - hold home meds (losartan) #Hyperlipidemia simvastatin #GERD omeprazole #Glaucoma latanoprost #Anxiety duloxetine prn clonazepam #Complex regional pain syndrome -Keppra home dose tizanidine home dose Topamax home dose #Diabetes type 2 takes 38 units detemir, on 10 units at present - ISS and FSBS AC and HS #Class 3 obesity -BMI 40.5, complicating care. DVT ppx: stopped heparin due to acute anemia. SCDs. TEDs. VS, I&O, 24H, Fishbone Vital Signs/I&O Vital Signs Date Time Temp Pulse Resp B/P (MAP) Pulse Ox O2 Delivery O2 Flow Rate FiO2 09/03/21 12:40 98.0 68 15 146/77 (100) 95 Room Air 08/31/21 22:00 0.5 I&O- Last 24 Hours up to 6 AM 09/03/21 06:00 Intake Total 3640 ml Output Total 2910 ml Balance 730 ml Laboratory Data 24H LABS Laboratory Tests 2 09/02/21 16:57: Bedside Glucose (Misc Panel) 175H 09/02/21 21:46: Bedside Glucose (Misc Panel) 132H 09/03/21 01:17: Immature Granulocyte % (Auto) 0.8, Neutrophils (%) (Auto) 56.9, Lymphocytes (%) (Auto) 33.2, Monocytes (%) (Auto) 6.5, Eosinophils (%) (Auto) 1.8, Basophils (%) (Auto) 0.8, Neutrophils # (Auto) 5.3, Lymphocytes # (Auto) 3.1, Monocytes # (Auto) 0.6, Eosinophils # (Auto) 0.2, Basophils # (Auto) 0.1, Nucleated Red Blood Cells % (auto) 0.4H 09/03/21 04:09: Immature Granulocyte % (Auto) 0.5, Neutrophils (%) (Auto) 55.1, Lymphocytes (%) (Auto) 34.2, Monocytes (%) (Auto) 7.1, Eosinophils (%) (Auto) 2.2, Basophils (%) (Auto) 0.9, Neutrophils # (Auto) 5.1, Lymphocytes # (Auto) 3.1, Monocytes # (Auto) 0.7, Eosinophils # (Auto) 0.2, Basophils # (Auto) 0.1, Nucleated Red Blood Cells % (auto) 0.5H, Erythrocyte Sedimentation Rate 27, Anion Gap 2L, Glomerular Filtration Rate > 60.0, Lactic Acid Level 1.3, Calcium Level 7.4L, C- Reactive Protein, Quantitative 1.64H, Procalcitonin 0.08 09/03/21 06:00: Bedside Glucose (Misc Panel) 103 09/03/21 11:39: Bedside Glucose (Misc Panel) 144H CBC/BMP Laboratory Tests 09/02/21 16:32 09/03/21 01:17 09/03/21 04:09 Microbiology Microbiology 09/03/21 Respiratory Virus Panel (PCR) ([facility]) - Final, Complete 09/01/21 Blood Culture - Preliminary, Resulted No Growth after 48 hours. All Specime... 09/01/21 Blood Culture - Preliminary, Resulted No Growth after 48 hours. All Specime... FABIOLA ARAIZA MD Sep 03, 2021 13:43
[2021-09-03] MEDS ORDERED: ACETAMINOPHEN 1000MG 100ML IV BTL (OFIRMEV) (J0131 PER 10MG) As Ordered ONE (15:17)
[2021-09-03] MEDS ORDERED: fentaNYL 100 MCG/2 ML INJECTION (J3010) IV PRN (17:30)
[2021-09-03] MEDS ORDERED: oxyCODONE 5MG TAB PO PRN (17:30)
[2021-09-03] MEDS ORDERED: ONDANSETRON 4MG/2ML VIAL IV PRN (17:30)
[2021-09-03] MEDS ORDERED: LR 1,000 ML IV SCH (17:30)
[2021-09-03 18:05] LABS: BASO # 0.1 10^3/uL (0.0-0.2); BASO % 0.5 % (0.0-1.0); EOS % 0.1 % (0.0-3.0); HEMATOCRIT 32.9 % (36.0-47.0); HEMOGLOBIN 10.6 g/dl (12.0-15.5); LYMPH # 0.8 10^3/uL (1.5-5.0); LYMPH % 7.2 % (24.0-44.0); MEAN CORPUSCULAR HEMOGLOBIN 29.5 pg (27.0-33.0); MEAN CORPUSCULAR HGB CONC 32.2 g/dl (32.0-36.5); MEAN CORPUSCULAR VOLUME 91.6 fl (80.0-96.0); MONO # 0.2 10^3/uL (0.0-0.8); MONO % 1.9 % (2.0-8.0); NEUTROPHILS # 9.8 10^3/uL (1.5-8.5); NEUTROPHILS % 88.9 % (36.0-66.0); PLATELET COUNT, AUTOMATED 196 10^3/uL (150-450); RED BLOOD COUNT 3.59 10^6/uL (4.00-5.40)
[2021-09-03] MEDS: traZODone 100 MG TAB PO SCH (21:42)
[2021-09-03] MEDS: tiZANidine 4 MG TAB PO SCH (21:42)
[2021-09-03] MEDS: SIMVASTATIN 20 MG TAB PO SCH (21:42)
[2021-09-03] MEDS: TOPIRAMATE (TopAMAX) 25 MG TAB PO SCH (21:43)
[2021-09-03] MEDS: LATANOPROST 0.005% OPHTH SOLN 2.5 ML OU SCH (21:43)
[2021-09-03] MEDS: DULoxetine 30MG CAPSULE (CYMBALTA) PO SCH (21:43)
[2021-09-03] MEDS: LEVEMIR (INSULIN DETEMIR) 1 UNITS/0.01ML SC SCH ×2 (21:55→21:56)
[2021-09-03] MEDS: MORPHINE 2 MG/ML 1ML VIAL (J2270) IV PRN (22:01)
[2021-09-04] VITALS (7 sets, daily range): BP systolic 138–193; BP diastolic 64–97
[2021-09-04] MEDS: MORPHINE 2 MG/ML 1ML VIAL (J2270) IV PRN (02:27)
[2021-09-04] MEDS: AZTREONAM 2 GM in D5W MINI-BAG PLUS 100 ML IV SCH (05:46)
[2021-09-04 06:04] LABS: BASO % 0.4 % (0.0-1.0); EOS % 0.3 % (0.0-3.0); HEMATOCRIT 28.8 % (36.0-47.0); HEMOGLOBIN 9.2 g/dl (12.0-15.5); LYMPH # 1.9 10^3/uL (1.5-5.0); LYMPH % 19.2 % (24.0-44.0); MEAN CORPUSCULAR HEMOGLOBIN 29.3 pg (27.0-33.0); MEAN CORPUSCULAR HGB CONC 31.9 g/dl (32.0-36.5); MEAN CORPUSCULAR VOLUME 91.7 fl (80.0-96.0); MONO # 0.7 10^3/uL (0.0-0.8); MONO % 7.3 % (2.0-8.0); NEUTROPHILS % 72.2 % (36.0-66.0); PLATELET COUNT, AUTOMATED 181 10^3/uL (150-450); RED BLOOD COUNT 3.14 10^6/uL (4.00-5.40); WHITE BLOOD COUNT 9.7 10^3/uL (4.0-10.0)
[2021-09-04 06:23] LABS: BLOOD UREA NITROGEN 9 MG/DL (7-18); CALCIUM LEVEL 7.8 MG/DL (8.5-10.1); CARBON DIOXIDE LEVEL 27 MEQ/L (21-32); CHLORIDE LEVEL 112 MEQ/L (98-107); CREATININE FOR GFR 0.56 MG/DL (0.55-1.30); GLOMERULAR FILTRATION RATE > 60.0 (>51); GLUCOSE, FASTING 144 MG/DL (70-100); POTASSIUM SERUM 4.1 MEQ/L (3.5-5.1); SODIUM LEVEL 143 MEQ/L (136-145)
[2021-09-04] MEDS: HumaLOG INSULIN (NovoLOG) PER UNIT SC SCH ×4 (08:28→21:00)
[2021-09-04] MEDS: OMEPRAZOLE 20 MG CAP PO SCH (08:29)
[2021-09-04] MEDS: CETIRIZINE (ZyrTEC) 10 MG TAB PO SCH (08:29)
[2021-09-04] MEDS: levETIRAcetam 250MG TABLET (KEPPRA) PO SCH ×2 (08:29→21:21)
[2021-09-04] MEDS: VITAMIN D 1,000 INTERNATIONAL UNITS TABLET PO SCH (08:29)
[2021-09-04] MEDS: ASCORBIC ACID 500 MG TAB PO SCH (08:29)
--- NOTE | 2021-09-04 09:28 | IPNPDOC ---
Subjective General Date Seen: Sep 04, 2021 (8:30 am ) Subject Chief Complaint/History The patient is a 51-year-old female admitted with a reason for visit of Right Breast Cancer, status post neoadjuvant therapy, s/p bilateral simple mastectomy with right sentinel lymph node biopsy done on 08/31/2021. Procedure was c omplicated by left arm IV infiltration causing left arm swelling and post procedure tachycardia not responding to 2 L of fluid bolus. Patient was admitted to ICU from recovery for close observation. Her blood pressure dropped and she required pressors overnight. Patient developed right chest wall hematoma. Her chest was wrapped with SUJATHA wrap. She does have significant drainage from both mastectomy sites - over 480 cc per side per 24 h Her tachycardia improved, Her hemoglobin dropped to 7 and she required transfusion. She was transferred to PCCU on POD 2 Her BP dropped again in AM of POD3 and she required transfer back to ICU and another unit of blood due to low HB. Total got 3 u PRBC s/p b/l mastectomy hematoma evacuation and washout 09/03/21 - 400 cc of clot removed Doing well postop, HR/BP stable postop Current Medications Current Medications Current Medications Medications (Trade) Dose Ordered Sig/Pavithra Route PRN Reason Start Time Stop Time Status Last Admin Dose Admin Acetaminophen (Tylenol Tab) 650 mg Q6H PRN PO MILD PAIN (PS 1-4) 08/31/21 18:55 Amiodarone HCl 150 mg/IV Miscellaneous Supplies 100 ml @ 600 mls/hr STAT STAT IV 09/01/21 01:25 09/01/21 02:11 DC Aripiprazole (AbiLIFY) 7.5 mg DAILY PO 09/01/21 09:00 09/04/21 08:29 Ascorbic Acid (Vitamin C) 1,000 mg DAILY PO 09/01/21 09:00 09/04/21 08:29 Aztreonam 2 gm/ Dextrose 100 ml @ 100 mls/hr Q8H IV 09/01/21 06:00 09/04/21 08:01 DC 09/04/21 05:46 Calcium Carbonate (Tums) 500 mg BID PRN PO INDIGESTION 08/31/21 20:15 Cetirizine HCl (ZyrTEC) 10 mg DAILY PO 09/01/21 09:00 09/04/21 08:29 Clindamycin Phosphate 900 mg/ IV Miscellaneous Supplies 50 ml @ 50 mls/hr Q8H IV 08/31/21 22:00 09/01/21 01:41 DC 08/31/21 23:53 Clonazepam (KlonoPIN) 0.5 mg BIDP PRN PO ANXIETY 08/31/21 20:15 Dextrose (Dextrose 50%) 25 ml ASDIRECTED PRN IV SEE LABEL COMMENTS 08/31/21 20:35 Diphenhydramine HCl (Benadryl) 50 mg Q6H PRN PO rash 08/31/21 21:45 08/31/21 22:49 Duloxetine HCl (Cymbalta) 120 mg QHS PO 08/31/21 21:00 09/03/21 21:43 Epinephrine HCl (Adrenalin) 0.5 mg STAT STAT SC 09/03/21 02:32 09/03/21 02:40 DC Esmolol HCl (Brevibloc) 10 mg ASDIRECTED PRN IV For hr>125 MAY REPEAT up to 5x 08/31/21 21:00 08/31/21 23:00 DC Fentanyl Citrate (Sublimaze) 25 mcg Q5MP PRN IV PAIN LEVEL 8-10 08/31/21 19:10 08/31/21 21:12 DC 08/31/21 20:35 Fentanyl Citrate (Sublimaze) 25 mcg Q5MP PRN IV PAIN LEVEL 8-10 09/03/21 17:30 09/03/21 18:30 DC Glucagon (Glucagon) 1 mg ASDIRECTED PRN SC SEE LABEL COMMENTS 08/31/21 20:35 Glucose (Glucose) 16 GM ASDIRECTED PRN PO SEE LABEL COMMENTS 08/31/21 20:35 Heparin Sodium (Porcine) (Heparin) 5,000 units Q8H SQ 08/31/21 22:00 09/02/21 09:54 DC 09/02/21 05:18 Insulin Detemir (Levemir Insulin) 5 units QHS SC 09/01/21 02:40 09/03/21 21:56 Insulin Detemir (Levemir Insulin) 5 units QHS SC 09/01/21 21:00 09/01/21 02:38 DC Insulin Detemir (Levemir Insulin) 10 units QHS SC 08/31/21 21:00 09/03/21 21:55 Insulin Human Lispro (HumaLOG INSULIN) SEE PROTOCOL TABLE AC [place] 09/01/21 07:30 09/01/21 02:15 DC Insulin Human Lispro (HumaLOG INSULIN) SEE PROTOCOL TABLE AC [place] 09/01/21 12:00 09/04/21 08:28 Insulin Human Lispro (HumaLOG INSULIN) SEE PROTOCOL TABLE Q6H [place] 09/01/21 00:00 09/01/21 10:11 DC 09/01/21 06:10 Insulin Human Lispro (HumaLOG INSULIN) SEE PROTOCOL TABLE QHS [place] 08/31/21 21:00 09/01/21 02:15 DC 08/31/21 22:47 Insulin Human Lispro (HumaLOG INSULIN) SEE PROTOCOL TABLE QHS [place] 09/01/21 21:00 09/03/21 21:55 Lactated Ringer's 1,000 ml @ 100 mls/hr Q10H IV 08/31/21 18:55 09/01/21 01:48 DC 08/31/21 20:28 Lactated Ringer's 1,000 ml @ 100 mls/hr Q10H IV 08/31/21 19:10 08/31/21 21:12 DC 08/31/21 19:10 Lactated Ringer's 1,000 ml @ 100 mls/hr Q10H IV 09/03/21 17:30 09/03/21 18:30 DC Lactated Ringer's 1,000 ml @ 120 mls/hr Q8H20M IV 09/01/21 01:45 09/01/21 10:11 DC 09/01/21 02:23 Lactated Ringer's 1,000 ml @ 999 mls/hr Q1H1M IV 08/31/21 20:20 08/31/21 21:20 DC 08/31/21 18:40 Latanoprost (Xalatan 0.005% Op Soln) 1 drop QPM OU 08/31/21 21:00 09/03/21 21:43 Levetiracetam (Keppra) 500 mg BID PO 08/31/21 21:00 09/04/21 08:29 Lidocaine HCl (LIDOCAINE 1% MDV 20ml) 0.1 ml ONCE PRN SQ DISCOMFORT BEFORE IV START 08/31/21 06:00 Losartan Potassium (Cozaar) 50 mg DAILY PO 09/01/21 09:00 09/01/21 00:40 DC Metoclopramide HCl (REGLAN INJection) 10 mg Q6HP PRN IV NAUSEA OR VOMITING 08/31/21 19:10 08/31/21 20:23 DC Metoprolol Tartrate (Lopressor) 1 mg Q5MP PRN IV SEE LABEL COMMENTS 08/31/21 19:10 08/31/21 21:12 DC 08/31/21 20:45 Morphine Sulfate (Morphine Sulfate Inj) 2 mg Q3H PRN IV SEVERE PAIN (PS 8-10) 08/31/21 18:55 09/04/21 02:27 Norepinephrine Bitartrate 8 mg/ Dextrose 500 ml @ 15 mls/hr Q24H IV 09/01/21 01:30 09/01/21 22:56 DC 09/01/21 02:24 Omeprazole (PriLOSEC) 40 mg DAILY PO 09/01/21 09:00 09/04/21 08:29 Ondansetron HCl (ZOFRAN INJection) 4 mg Q4H PRN IV NAUSEA OR VOMITING 08/31/21 18:55 09/01/21 00:42 Ondansetron HCl (ZOFRAN INJection) 4 mg Q4HP PRN IV NAUSEA OR VOMITING 08/31/21 19:10 08/31/21 21:12 DC Ondansetron HCl (ZOFRAN INJection) 4 mg Q4HP PRN IV NAUSEA OR VOMITING 09/03/21 17:30 09/03/21 18:30 DC Oxycodone HCl (Roxicodone, Oxyir) 5 mg ASDIRECTED PRN PO PAIN LEVEL 1-4 09/03/21 17:30 09/03/21 18:30 DC Oxycodone/ Acetaminophen (Percocet 5mg/ 325mg Tablet) 1 tab ASDIRECTED PRN PO PAIN LEVEL 1-4 08/31/21 19:10 08/31/21 21:12 DC 08/31/21 20:29 Simvastatin (Zocor) 20 mg QHS PO 08/31/21 21:00 09/03/21 21:42 Sodium Chloride 1,000 ml @ 80 mls/hr [id number] IV 09/02/21 19:00 09/04/21 08:48 DC 09/03/21 21:34 Tizanidine HCl (Zanaflex) 4 mg QHS PO 08/31/21 21:00 09/03/21 21:42 Topiramate (TopAMAX) 50 mg QHS PO 08/31/21 21:00 09/03/21 21:43 Tramadol HCl (Ultram) 50 mg Q6HP PRN PO MODERATE PAIN (PS 5-7) 08/31/21 18:55 Trazodone HCl (Desyrel) 100 mg QHS PO 08/31/21 21:00 09/03/21 21:42 Vancomycin HCl 1000 mg/IV Miscellaneous Supplies 1 each/ Sodium Chloride 270 ml @ 270 mls/hr Q12H IV 09/01/21 20:00 09/01/21 20:05 DC Vitamin D (Vitamin D) 2,000 units DAILY PO 09/01/21 09:00 09/04/21 08:29 Allergies Coded Allergies: Gadolinium-Containing Contrast Medi (Verified Allergy, Severe, anaphylaxis, 08/31/21) Contrast Media (Verified Allergy, Intermediate, hives, 08/31/21) Sulfa (Sulfonamide Antibiotics) (Verified Allergy, Mild, hives, 08/31/21) amoxicillin (Verified Allergy, Mild, rash, 08/31/21) propranolol (Verified Allergy, Mild, hives, 08/31/21) valproic acid (Verified Allergy, Mild, hives, 08/31/21) Tricyclic Compounds (Verified Adverse Reaction, Mild, mouth sores, 08/31/21) amitriptyline (Verified Adverse Reaction, Mild, mouth sores, 08/31/21) gabapentin (Verified Adverse Reaction, Mild, orbital pain, 08/31/21) lidocaine (Verified Adverse Reaction, Mild, elevated heart rate, 08/31/21) PATIENT STATES HER REACTION IS ONLY TO THE LIDOCAINE PATCH, NOT THE INJECTABLE LIDOCAINE magnesium (Verified Adverse Reaction, Mild, mouth sores, 08/31/21) pregabalin (Verified Adverse Reaction, Mild, orbital pain, 08/31/21) zinc (Verified Adverse Reaction, Mild, mouth sores, 08/31/21) Objective Physical Examination Examination GENERAL APPEARANCE: Patient seen, laying in bed, awake, alert, and oriented. BREAST: bilateral breasts are absent surgically. There are two LUIS EDUARDO drains in the right and 1 LUIS EDUARDO drain on the left draining s/s drainage No palpable hematoma on either side, there are some ecchymosis b/l - on right ecchymosis extends to flank area Mastectomy flaps are viable. Xeroform placed over incision LUNGS: Not in respiratory distress HEART: no tachycardia ABDOMEN: Abdomen is soft EXTREMITIES: Patient moves her upper extremities without any issues. The left hand is softer and the edema decreased from previous IV infiltration Vital Signs Vital Signs Date Time Temp Pulse Resp B/P (MAP) Pulse Ox O2 Delivery O2 Flow Rate FiO2 09/04/21 08:00 97.0 75 16 158/73 (101) 96 Room Air 09/03/21 16:10 10.0 I&Os I&O- Last 24 Hours up to 6 AM 09/04/21 06:00 Intake Total 3495 ml Output Total 2120 ml Balance 1375 ml Laboratory Data Labs 24H Laboratory Tests 2 09/03/21 11:39: Bedside Glucose (Misc Panel) 144H 09/03/21 16:33: Bedside Glucose (Misc Panel) 173H 09/03/21 17:39: Immature Granulocyte % (Auto) 1.4, Neutrophils (%) (Auto) 88.9H, Lymphocytes (%) (Auto) 7.2L, Monocytes (%) (Auto) 1.9L, Eosinophils (%) (Auto) 0.1, Basophils (%) (Auto) 0.5, Neutrophils # (Auto) 9.8H, Lymphocytes # (Auto) 0.8L, Monocytes # (Auto) 0.2, Eosinophils # (Auto) 0.0, Basophils # (Auto) 0.1, Nucleated Red Blood Cells % (auto) 0.6H 09/03/21 21:50: Bedside Glucose (Misc Panel) 278H 09/04/21 05:02: Immature Granulocyte % (Auto) 0.6, Neutrophils (%) (Auto) 72.2H, Lymphocytes (%) (Auto) 19.2L, Monocytes (%) (Auto) 7.3, Eosinophils (%) (Auto) 0.3, Basophils (%) (Auto) 0.4, Neutrophils # (Auto) 7.0, Lymphocytes # (Auto) 1.9, Monocytes # (Auto) 0.7, Eosinophils # (Auto) 0.0, Basophils # (Auto) 0.0, Nucleated Red Blood Cells % (auto) 0.5H, Anion Gap 4L, Glomerular Filtration Rate > 60.0, Calcium Level 7.8L CBC/BMP Laboratory Tests 09/03/21 17:39 09/04/21 05:02 Microbiology Microbiology 09/03/21 Anaerobic Culture, Received Pending 09/03/21 Wound Culture, Received Pending 09/03/21 Gram Stain - Final, Resulted 09/03/21 Wound Culture, Resulted Pending 09/03/21 Anaerobic Culture, Resulted Pending 09/03/21 Respiratory Virus Panel (PCR) (ELIZABETH) - Final, Complete 09/01/21 Blood Culture - Preliminary, Resulted No Growth after 72 hours. All specime... 09/01/21 Blood Culture - Preliminary, Resulted No Growth after 72 hours. All specime... Impression The patient is a 51-year-old female admitted with a reason for visit of Right Breast Cancer, status post neoadjuvant therapy, s/p bilateral simple mastectomy with right sentinel lymph node biopsy done on 08/31/2021. Procedure was complicated by left arm IV infiltration, tachycardia, and right chest wall hematoma, hypotension, s/p 3 u PRBC s/p b/l mastectomy hematoma evacuation and washout 09/03/21 (400 cc clot removed) - diabetic diet, ok to stop IVF if adequate PO intake - Monitor drains, please strip drains per order - Xeroform to incision, kerlix and surgical bra, no need for SUJATHA wrap - holding sq heparin due to bleeding, continue SCDs - Med management per hospitalist team, greatly appreciate help with taking care of Ms. Cloud - case discussed with medicine team Plan / VTE VTE Prophylaxis Ordered?: Yes VTE Exclusion Pharmacological: Active Bleeding FABIENNE MOLINA DO Sep 04, 2021 09:28
--- NOTE | 2021-09-04 12:00 | IPNPDOC ---
Date Seen The patient was seen on 09/04/21. Progress Note UBJECTIVE: Patient was seen and examined at bedside at ICU. She is status post hematoma evacuation in the OR by Dr. Acosta on 09/03/2021. 400 mL of hematoma volume were evacuated from the right surgical site. Patient tolerated the procedure well. Is remained normotensive in fact her blood pressures have been elevated at 158/73. Her pulse is appropriate at 75 bpm. She is afebrile and de nies any subjective fevers or chills, chest pain, shortness of breath, nausea vomiting or diarrhea. At this point the patient is not exhibiting symptoms of infection and antibiotics at this point will be discontinued. Intraoperative cultures are pending. LUIS EDUARDO drains put out approximately 60 cc overnight per drain. OBJECTIVE PHYSICAL EXAMINATION: VITAL SIGNS: please see below General: NAD, comfortable HEENT: PERRLA, EOMI, sclerae clear Neck: supple, normal ROM, no JVD Respiratory: lungs CTAB, no wheeze, no rales, no crackles Chest: dressings are intact, clean, bilateral LUIS EDUARDO drains in situ. CVS: RRR, normal S1, S2, no murmurs Abdo: soft, no masses, no hepatosplenomegaly, BS+, no rebound tenderness Extremities: no edema, pulses 2+ MSK: no joint deformities, normal ROM Neuro: no focal neuro deficits, moving all 4 extremities, CN2-12 intact. Strength 5/5 in all 4 extremities. No nystagmus. Psych: calm, cooperative, AAO x 3 LABORATORY DATA, IMAGING STUDIES, MICROBIOLOGY: Please see below. CT angiogram of the abdomen and pelvis on 09/01/2021 1. No acute abdominopelvic pathology appreciated. 2. Mild to moderate fecal stasis cannot be excluded. 3. Patient is status post bilateral mastectomy. CT angio chest on 09/01/2021 1. The examination is suboptimal, however, there is no evidence of an acute pulmonary embolism. Consider follow-up. 2. Lung field opacities most consistent with subsegmental atelectatic changes. Follow-up is suggested. 3. Other findings and exam limitations as described above. Follow-up is recommended. DVT prophylaxis ordered?: Heparin 5000 units subcu ASSESSMENT AND PLAN: 51-year-old female with a history of type 2 diabetes glaucoma obesity hypertension ER positive OR positive HER-2 breast cancer status post bilateral mastectomy with right sentinel lymph node biopsy on 08/31/[address] Velez. Procedure was complicated by left arm IV infiltration causing left arm swelling and post procedure hypotension and shock not responding to fluid resuscitation. Patient required IV pressors to maintain blood pressure. PROBLEMS: Shock - patient's shock experienced on 09/01/21 had resolved - tachycardia, blood pressures and leukocytosis normalized - CT angiogram did not show intra-abdominal process no other PEs found in the CT angiogram of the chest. - suspect possibly 2/2 hypovolemia vs drug reaction vs allergic reaction - low suspicion for infection, however will continue with antibiotics (vanco, aztreonam Day 3) - patient developed recurrent hypotension on night of 09/02/21 - d/w Dr. Thomas, given extensive list of allergies, and recent use of contrast, anesthetic, as well as blood transfusion, it was postulated that patient suffer ed anaphylactic shock - she improved after admisnistration of 2L NS as well as 40 mg IV solumedrol, as well 50 mg IV benadryl - patient had a normal 2D echo performed on July 232020, but given hypotension we attempted to obtain a stat pre-op echo. Due to patient's drains, I was informed by RN that signal maintenance technician could not perform echo. I d/w Dr. Serra, we have no other options at this time. I am howevere reassusted by the normal EF (60-65%), and only trace mitral and tricuspid regurgitation. Patient also had anormal EKG peformed on 09/02/21. - at this stage, the benefit of undergoing surgical intervention to control bleeding outweighs delays of obtaining pre-op echo. At this stage, her RCRI score is 10.1%. GIven her persistent blood loss needing transfusion, benefits of OR outweigh risks. -Patient did well during surgery on 09/03/2021. Approximately 400 cc of hematoma volume were evacuated from the right surgical site. Overnight drains put out approximately 60 cc bilaterally -Patient's procalcitonin is negative, she is afebrile, denies any subjective chills. She has no leukocytosis. At this stage her antibiotics will be discontinued. -We will follow up intraoperative cultures and resume antibiotic therapy if appropriate. -Remains hemodynamically stable. IV fluids have been discontinued #Status post bilateral mastectomy/R surgical site hematoma Continue incentive spirometry - bilateral LUIS EDUARDO drains are high output, serosanginous, ~480 cc each -400 cc of hematoma were evacuated on 09/03/2021 but in the OR by Dr. Velez #Acute anemia - multifactorial: signfificant serosanguinous drainage from bilateral LUIS EDUARDO drains, as well as dilutional effect - Hgb 7.1 overnight, improved to 8.1 after 2nd unit total - total of 3 units of pRBC transfused (last one pre-op) -Hemoglobin remains stable at 9.2 #Hypertension - hold home meds (losartan) #Hyperlipidemia simvastatin #GERD omeprazole #Glaucoma latanoprost #Anxiety duloxetine prn clonazepam #Complex regional pain syndrome -Keppra home dose tizanidine home dose Topamax home dose #Diabetes type 2 takes 38 units detemir, on 10 units at present - ISS and FSBS AC and HS #Class 3 obesity -BMI 40.5, complicating care. DVT ppx: stopped heparin due to acute anemia. SCDs. TEDs. VS, I&O, 24H, Fishbone Vital Signs/I&O Vital Signs Date Time Temp Pulse Resp B/P (MAP) Pulse Ox O2 Delivery O2 Flow Rate FiO2 09/04/21 08:00 97.0 75 16 158/73 (101) 96 Room Air 09/03/21 16:10 10.0 I&O- Last 24 Hours up to 6 AM0 09/04/21 05:59 Intake Total 2995 ml Output Total 1970 ml Balance 1025 ml Laboratory Data 24H LABS Laboratory Tests 2 09/03/21 16:33: Bedside Glucose (Misc Panel) 173H 09/03/21 17:39: Immature Granulocyte % (Auto) 1.4, Neutrophils (%) (Auto) 88.9H, Lymphocytes (%) (Auto) 7.2L, Monocytes (%) (Auto) 1.9L, Eosinophils (%) (Auto) 0.1, Basophils (%) (Auto) 0.5, Neutrophils # (Auto) 9.8H, Lymphocytes # (Auto) 0.8L, Monocytes # (Auto) 0.2, Eosinophils # (Auto) 0.0, Basophils # (Auto) 0.1, Nucleated Red Blood Cells % (auto) 0.6H 09/03/21 21:50: Bedside Glucose (Misc Panel) 278H 09/04/21 05:02: Immature Granulocyte % (Auto) 0.6, Neutrophils (%) (Auto) 72.2H, Lymphocytes (%) (Auto) 19.2L, Monocytes (%) (Auto) 7.3, Eosinophils (%) (Auto) 0.3, Basophils (%) (Auto) 0.4, Neutrophils # (Auto) 7.0, Lymphocytes # (Auto) 1.9, Monocytes # (Auto) 0.7, Eosinophils # (Auto) 0.0, Basophils # (Auto) 0.0, Nucleated Red Blood Cells % (auto) 0.5H, Anion Gap 4L, Glomerular Filtration Rate > 60.0, Calcium Level 7.8L CBC/BMP Laboratory Tests 09/03/21 17:39 09/04/21 05:02 Microbiology Microbiology 09/03/21 Anaerobic Culture, Received Pending 09/03/21 Wound Culture, Received Pending 09/03/21 Gram Stain - Final, Resulted 09/03/21 Wound Culture, Resulted Pending 09/03/21 Anaerobic Culture, Resulted Pending 09/03/21 Respiratory Virus Panel (PCR) (ELIZABETH) - Final, Complete 09/01/21 Blood Culture - Preliminary, Resulted No Growth after 72 hours. All specime... 09/01/21 Blood Culture - Preliminary, Resulted No Growth after 72 hours. All specime... FABIOLA ARAIZA MD Sep 04, 2021 12:00
[2021-09-04] MEDS: LOSARTAN 25 MG TAB PO SCH (17:42)
[2021-09-04] MEDS: NORCO, ANEXSIA 5/325MG TABLET (HYDROcodone/ACETAMINOPHEN) PO PRN (17:56)
[2021-09-04] MEDS: SIMVASTATIN 20 MG TAB PO SCH (21:21)
[2021-09-04] MEDS: tiZANidine 4 MG TAB PO SCH (21:21)
[2021-09-04] MEDS: traZODone 100 MG TAB PO SCH (21:22)
[2021-09-04] MEDS: DULoxetine 30MG CAPSULE (CYMBALTA) PO SCH (21:22)
[2021-09-04] MEDS: TOPIRAMATE (TopAMAX) 25 MG TAB PO SCH (21:22)
[2021-09-04] MEDS: LEVEMIR (INSULIN DETEMIR) 1 UNITS/0.01ML SC SCH ×2 (21:23)
[2021-09-04] MEDS: LATANOPROST 0.005% OPHTH SOLN 2.5 ML OU SCH (21:26)
[2021-09-05] MEDS ORDERED: SODIUM CHLORIDE 0.9% INJ 10 ML SYR IV PRN (02:15)
[2021-09-05] MEDS: NORCO, ANEXSIA 5/325MG TABLET (HYDROcodone/ACETAMINOPHEN) PO PRN ×3 (02:23→12:28)
[2021-09-05 06:00] VITALS: BP 160/83
[2021-09-05 07:07] LABS: BASO # 0.1 10^3/uL (0.0-0.2); BASO % 0.9 % (0.0-1.0); EOS # 0.4 10^3/uL (0.0-0.5); EOS % 4.3 % (0.0-3.0); HEMATOCRIT 31.2 % (36.0-47.0); HEMOGLOBIN 10.1 g/dl (12.0-15.5); LYMPH % 35.9 % (24.0-44.0); MEAN CORPUSCULAR HEMOGLOBIN 29.5 pg (27.0-33.0); MEAN CORPUSCULAR HGB CONC 32.4 g/dl (32.0-36.5); MEAN CORPUSCULAR VOLUME 91.2 fl (80.0-96.0); MONO # 0.5 10^3/uL (0.0-0.8); MONO % 6.5 % (2.0-8.0); NEUTROPHILS # 4.2 10^3/uL (1.5-8.5); NEUTROPHILS % 51.5 % (36.0-66.0); PLATELET COUNT, AUTOMATED 228 10^3/uL (150-450); RED BLOOD COUNT 3.42 10^6/uL (4.00-5.40); WHITE BLOOD COUNT 8.2 10^3/uL (4.0-10.0)
[2021-09-05] MEDS: HumaLOG INSULIN (NovoLOG) PER UNIT SC SCH ×2 (07:30→12:00)
[2021-09-05 07:34] LABS: BLOOD UREA NITROGEN 6 MG/DL (7-18); CALCIUM LEVEL 8.6 MG/DL (8.5-10.1); CARBON DIOXIDE LEVEL 27 MEQ/L (21-32); CHLORIDE LEVEL 112 MEQ/L (98-107); CREATININE FOR GFR 0.68 MG/DL (0.55-1.30); GLOMERULAR FILTRATION RATE > 60.0 (>51); GLUCOSE, FASTING 86 MG/DL (70-100); POTASSIUM SERUM 3.4 MEQ/L (3.5-5.1); SODIUM LEVEL 144 MEQ/L (136-145)
[2021-09-05 08:25] VITALS: BP 160/83
[2021-09-05] MEDS: CETIRIZINE (ZyrTEC) 10 MG TAB PO SCH (08:25)
[2021-09-05] MEDS: levETIRAcetam 250MG TABLET (KEPPRA) PO SCH (08:25)
[2021-09-05] MEDS: ASCORBIC ACID 500 MG TAB PO SCH (08:25)
[2021-09-05] MEDS: OMEPRAZOLE 20 MG CAP PO SCH (08:25)
[2021-09-05] MEDS: LOSARTAN 25 MG TAB PO SCH (08:25)
[2021-09-05] MEDS: VITAMIN D 1,000 INTERNATIONAL UNITS TABLET PO SCH (08:26)
[2021-09-05 08:50] LABS: C REACTIVE PROTEIN QUANTITATIV 0.85 MG/DL (0.00-0.30)
[2021-09-05] MEDS ORDERED: SODIUM CHLORIDE 0.9% INJ 10 ML SYR IV SCH (09:00)
[2021-09-05 09:26] LABS: ERYTHROCYTE SEDIMENTATION RATE 24 mm/hr (0-30)
[2021-09-05] MEDS ORDERED: ULTR50TA8 PO (11:05)
[2021-09-05] MEDS ORDERED: DOXY-350 PO (11:05)
--- NOTE | 2021-09-05 11:17 | DS.PDOC ---
"Discharge Summary General Date of Admission Aug 31, 2021 at 22:20 Date of Discharge 09/05/21 Attending Physician: FABIENNE MOLIAN DO Specialist/Consultants Involve hospitalist service Discharge Summary The patient is a 51-year-old female admitted with a reason for visit of Right Breast Cancer, status post neoadjuvant therapy, s/p bilateral simple mastectomy with right sentinel lymph node biopsy done on 08/31/2021. Procedure was complicated by left arm IV infiltration causing left arm swelling and post procedure tachycardia not responding to 2 L of fluid bolus. Patient was admitted to ICU from recovery for close observation. Her blood pressure dropped and she required pressors overnight. Patient developed right chest wall hematoma. Her chest was wrapped with SUJATHA wrap. She does have significant drainage from both mastectomy sites - over 480 cc per side per 24 h Her tachycardia improved, Her hemoglobin dropped to 7 and she required transfusion. She was transferred to PCCU on POD 2 Her BP dropped again in AM of POD3 and she required transfer back to ICU and another unit of blood due to low HB. Total got 3 u PRBC s/p b/l mastectomy hematoma evacuation and washout 09/03/21 - 400 cc of clot removed Doing well postop, HR/BP stable postop Blood cx negative, R wound cx negative, L wound cx w few Staph coag neg - likely contaminate but will send home on Doxy per Hospitalist recs she is stable for d/c 09/05/21 Exam| GENERAL APPEARANCE: Patient seen, laying in bed, awake, alert, and oriented. BREAST: bilateral breasts are absent surgically. There are two LUIS EDUARDO drains in the right and 1 LUIS EDUARDO drain on the left draining s/s drainage No palpable hematoma on either side, there are some ecchymosis b/l - on right ecchymosis extends to flank area Mastectomy flaps are viable. Xeroform placed over incision LUNGS: Not in respiratory distress HEART: no tachycardia ABDOMEN: Abdomen is soft EXTREMITIES: Patient moves her upper extremities without any issues. The left hand is softer and the edema decreased from previous IV infiltration Vital Signs/I&Os Vital Signs Date Time Temp Pulse Resp B/P (MAP) Pulse Ox O2 Delivery O2 Flow Rate FiO2 09/05/21 08:58 16 09/05/21 08:25 160/83 09/05/21 06:00 97.8 82 95 Room Air 09/03/21 16:10 10.0 I&O- Last 24 Hours up to 6 AM 09/05/21 06:00 Intake Total 2800 ml Output Total 3075 ml Balance -275 ml Laboratory Data Labs 24H Laboratory Tests 2 09/04/21 12:07: Bedside Glucose (Misc Panel) 101 09/04/21 17:20: Bedside Glucose (Misc Panel) 107H 09/04/21 20:46: Bedside Glucose (Misc Panel) 118H 09/05/21 06:31: 09/05/21 06:34: Immature Granulocyte % (Auto) 0.9, Neutrophils (%) (Auto) 51.5, Lymphocytes (%) (Auto) 35.9, Monocytes (%) (Auto) 6.5, Eosinophils (%) (Auto) 4.3H, Basophils (%) (Auto) 0.9, Neutrophils # (Auto) 4.2, Lymphocytes # (Auto) 3.0, Monocytes # (Auto) 0.5, Eosinophils # (Auto) 0.4, Basophils # (Auto) 0.1, Nucleated Red Blood Cells % (auto) 0.0, Erythrocyte Sedimentation Rate 24, Anion Gap 5L, Sophia merular Filtration Rate > 60.0, Calcium Level 8.6, C-Reactive Protein, Quantitative 0.85H 09/05/21 11:06: Bedside Glucose (Misc Panel) 103 CBC/BMP Laboratory Tests 09/05/21 06:34 FSBS Laboratory Tests Test 09/04/21 12:07 09/04/21 17:20 09/04/21 20:46 09/05/21 11:06 Range/Units Bedside Glucose (Misc Panel) 101 107 118 103 70-105 MG/DL Microbiology Microbiology 09/04/21 Blood Culture, Received Pending 09/04/21 Blood Culture, Received Pending 09/03/21 Anaerobic Culture - Final, Complete 09/03/21 Wound Culture - Final, Complete Staphylococcus Sp Coag Neg 09/03/21 Gram Stain - Final, Resulted 09/03/21 Wound Culture, Resulted Pending 09/03/21 Anaerobic Culture - Final, Resulted 09/03/21 Respiratory Virus Panel (PCR) (ELIZABETH) - Final, Complete 09/01/21 Blood Culture - Preliminary, Resulted No Growth after 72 hours. All specime... 09/01/21 Blood Culture - Preliminary, Resulted No Growth after 72 hours. All specime... Discharge Medications Scheduled Aripiprazole (Aripiprazole) 5 Mg Tablet, 7.5 MG PO DAILY, (Reported) Ascorbic Acid (Vitamin C) 500 Mg Tablet, 1,000 MG PO DAILY, (Reported) Calcium Carbonate (Calcium) 600 Mg Tablet, 1,200 MG PO DAILY, (Reported) Cetirizine HCl (Cetirizine HCl) 10 Mg Tablet, 10 MG PO DAILY, (Reported) Cholecalciferol (Vitamin D3) (Vitamin D3) 1,000 Unit Tablet, 2,000 UNITS PO D AILY, (Reported) Clonazepam (Klonopin) 0.5 Mg Tablet, 1 TAB PO BIDP, (Reported) Doxycycline Monohydrate (Doxycycline) 100 Mg Capsule, 100 MG PO BID Duloxetine Hcl (Cymbalta) 60 Mg Cap, 120 MG PO QHS, (Reported) Exenatide Microspheres (Bydureon Bcise) 2 Mg/0.85 Ml Auto.injct, 1 SYRINGE SC Q7D, (Reported) Hydroxyzine HCl (Hydroxyzine HCl) 25 Mg Tab, 50 MG PO QHS, (Reported) Insulin Glargine,Hum.rec.anlog (Toujeo Solostar) 300 Unit/Ml Inj, 38 UNIT SC QHS, (Reported) Latanoprost (Xalatan) 0.005% 2.5ML Drops, 1 DROP OU QPM, (Reported) Levocetirizine Dihydrochloride (Levocetirizine Dihydrochloride) 5 Mg Tablet, 5 MG PO QHS, (Reported) Losartan Potassium (Losartan Potassium) 25 Mg Tablet, 50 MG PO DAILY, (Reported) Metformin HCl (Metformin HCl) 1,000 Mg Tab, 1,000 MG PO BID, (Reported) Omeprazole (Omeprazole) 40 Mg Cap, 40 MG PO DAILY, (Reported) Simvastatin (Simvastatin) 20 Mg Tablet, 20 MG PO QHS, (Reported) Tizanidine HCl (Zanaflex) 2 Mg Cap, 4 MG PO QHS, (Reported) Topiramate (Topamax) 50 Mg Tab, 50 MG PO QHS, (Reported) Trazodone HCl (Trazodone HCl) 100 Mg Tab, 100 MG PO QHS, (Reported) levETIRAcetam (levETIRAcetam) 500 Mg Tablet, 1 TAB PO BID, (Reported) Scheduled PRN Tramadol HCl (Ultram) 50 Mg Tablet, 50 MG PO Q6HP PRN for pain Allergies Coded Allergies: Gadolinium-Containing Contrast Medi (Verified Allergy, Severe, anaphylaxis, 08/31/21) Contrast Media (Verified Allergy, Intermediate, hives, 08/31/21) Sulfa (Sulfonamide Antibiotics) (Verified Allergy, Mild, hives, 08/31/21) amoxicillin (Verified Allergy, Mild, rash, 08/31/21) propranolol (Verified Allergy, Mild, hives, 08/31/21) valproic acid (Verified Allergy, Mild, hives, 08/31/21) Tricyclic Compounds (Verified Adverse Reaction, Mild, mouth sores, 08/31/21) amitriptyline (Verified Adverse Reaction, Mild, mouth sores, 08/31/21) gabapentin (Verified Adverse Reaction, Mild, orbital pain, 08/31/21) lidocaine (Verified Adverse Reaction, Mild, elevated heart rate, 08/31/21) PATIENT STATES HER REACTION IS ONLY TO THE LIDOCAINE PATCH, NOT THE INJECTABLE LIDOCAINE magnesium (Verified Adverse Reaction, Mild, mouth sores, 08/31/21) pregabalin (Verified Adverse Reaction, Mild, orbital pain, 08/31/21) zinc (Verified Adverse Reaction, Mild, mouth sores, 08/31/21) FABIENNE MOLINA DO Sep 05, 2021 11:10"
--- NOTE | 2021-09-05 11:18 | IPNPDOC ---
Date Seen The patient was seen on 09/05/21. Progress Note UBJECTIVE: Patient was seen and examined at bedside on med surg floor. She is alert and oriented. Her pain is well controlled. She has no subjective fevers or chills. She has remained hemodynamically stable for 48 hours. OBJECTIVE PHYSICAL EXAMINATION: VITAL SIGNS: please see below General: NAD, comfortable HEENT: PERRLA, EOMI, sclerae clear Neck: supple, normal ROM, no JVD Respiratory: lungs CTAB, no wheeze, no rales, no crackles Chest: dressings are intact, clean, bilateral LUIS EDUARDO drains in situ. CVS: RRR, normal S1, S2, no murmurs Abdo: soft, no masses, no hepatosplenomegaly, BS+, no rebound tenderness Extremities: no edema, pulses 2+ MSK: no joint deformities, normal ROM Neuro: no focal neuro deficits, moving all 4 extremities, CN2-12 intact. Strength 5/5 in all 4 extremities. No nystagmus. Psych: calm, cooperative, AAO x 3 LABORATORY DATA, IMAGING STUDIES, MICROBIOLOGY: Please see below. CT angiogram of the abdomen and pelvis on 09/01/2021 1. No acute abdominopelvic pathology appreciated. 2. Mild to moderate fecal stasis cannot be excluded. 3. Patient is status post bilateral mastectomy. CT angio chest on 09/01/2021 1. The examination is suboptimal, however, there is no evidence of an acute pulmonary embolism. Consider follow-up. 2. Lung field opacities most consistent with subsegmental atelectatic changes. Follow-up is suggested. 3. Other findings and exam limitations as described above. Follow-up is recommended. DVT prophylaxis ordered?: Heparin 5000 units subcu ASSESSMENT AND PLAN: 51-year-old female with a history of type 2 diabetes glaucoma obesity hypertension ER positive VT positive HER-2 breast cancer status post bilateral mastectomy with right sentinel lymph node biopsy on 08/31/[address] Velez. Procedure was complicated by left arm IV infiltration causing left arm swelling and post procedure hypotension and shock not responding to fluid resuscitation. Patient required IV pressors to maintain blood pressure. PROBLEMS: Shock - patient's shock experienced on 09/01/21 had resolved - tachycardia, blood pressures and leukocytosis normalized - CT angiogram did not show intra-abdominal process no other PEs found in the CT angiogram of the chest. - suspect possibly 2/2 hypovolemia vs drug reaction vs allergic reaction - low suspicion for infection, however will continue with antibiotics (vanco, aztreonam Day 3) - patient developed recurrent hypotension on night of 09/02/21 - d/w Dr. Thomas, given extensive list of allergies, and recent use of contrast, anesthetic, as well as blood transfusion, it was postulated that patient suffered anaphylactic shock possibly 2/2 intraoperative lidocaine? - she improved after administration of 2L NS as well as 40 mg IV solumedrol, as well 50 mg IV benadryl, and epinephrine. - patient had a normal 2D echo performed on July 232020, but given hypotension we attempted to obtain a stat pre-op echo. Due to patient's drains, I was informed by RN that systems test technician could not perform echo. I d/w Dr. Serra, we have no other options at this time. I am howevere reassusted by the normal EF (60-65%), and only trace mitral and tricuspid regurgitation. Patient also had anormal EKG peformed on 09/02/21. - at this stage, the benefit of undergoing surgical intervention to control bleeding outweighs delays of obtaining pre-op echo. At this stage, her RCRI score is 10.1%. GIven her persistent blood loss needing transfusion, benefits of OR outweigh risks. -Patient did well during surgery on 09/03/2021. Approximately 400 cc of hematoma volume were evacuated from the right surgical site. Overnight drains put out approximately 60 cc bilaterally -Patient's procalcitonin is negative, she is afebrile, denies any subjective chills. She has no leukocytosis. At this stage her IV abx were stopped. -Patient's wound culture grew staphylococcs sp coag neg, sensitive to tetracycline. While this is most likely contaminant and patient does not display S/S of infection, as a precaution it is recommended she be DC with a 7 day course of doxycycline. She has taken this drug before without an allergic reaction. -Remains hemodynamically stable. - patient can be DC from medicine standpoint. She will follow closely with her PCP and breast surgery. #Status post bilateral mastectomy/R surgical site hematoma Continue incentive spirometry - bilateral LUIS EDUARDO drains are high output, serosanginous, ~480 cc each - 400 cc of hematoma were evacuated on 09/03/2021 but in the OR by Dr. Fawn iqbal #Acute anemia - multifactorial: signfificant serosanguinous drainage from bilateral LUIS EDUARDO drains, as well as dilutional effect - total of 3 units of pRBC transfused (last one pre-op) - Hemoglobin remains stable at 10.1 this morning. #Hypertension - hold home meds (losartan) #Hyperlipidemia simvastatin #GERD omeprazole #Glaucoma latanoprost #Anxiety duloxetine prn clonazepam #Complex regional pain syndrome - Keppra home dose tizanidine home dose Topamax home dose #Diabetes type 2 takes 38 units detemir, can be DC home on same regimen - ISS and FSBS AC and HS #Class 3 obesity -BMI 40.5, complicating care. DVT ppx: stopped heparin due to acute anemia. SCDs. TEDs. Dispo: patient has been normotensive, her pain is well controlled and she is tolerating diet. Patient's wound culture grew staphylococcs sp coag neg, sensitive to tetracycline. While this is most likely contaminant and patient does not display S/S of infection, as a precaution it is recommended she be DC with a 7 day course of doxycycline. She has taken this drug before without an allergic reaction. VS, I&O, 24H, Fishbone Vital Signs/I&O Vital Signs Date Time Temp Pulse Resp B/P (MAP) Pulse Ox O2 Delivery O2 Flow Rate FiO2 09/05/21 08:58 16 09/05/21 08:25 160/83 09/05/21 06:00 97.8 82 95 Room Air 09/03/21 16:10 10.0 I&O- Last 24 Hours up to 6 AM 09/05/21 06:00 Intake Total 2800 ml Output Total 3075 ml Balance -275 ml Laboratory Data 24H LABS Laboratory Tests 2 09/04/21 12:07: Bedside Glucose (Misc Panel) 101 09/04/21 17:20: Bedside Glucose (Misc Panel) 107H 09/04/21 20:46: Bedside Glucose (Misc Panel) 118H 09/05/21 06:31: 09/05/21 06:34: Immature Granulocyte % (Auto) 0.9, Neutrophils (%) (Auto) 51.5, Lymphocytes (%) (Auto) 35.9, Monocytes (%) (Auto) 6.5, Eosinophils (%) (Auto) 4.3H, Basophils (%) (Auto) 0.9, Neutrophils # (Auto) 4.2, Lymphocytes # (Auto) 3.0, Monocytes # (Auto) 0.5, Eosinophils # (Auto) 0.4, Basophils # (Auto) 0.1, Nucleated Red Blood Cells % (auto) 0.0, Erythrocyte Sedimentation Rate 24, Anion Gap 5L, Glomerular Filtration Rate > 60.0, Calcium Level 8.6, C-Reactive Protein, Quantitative 0.85H 09/05/21 11:06: Bedside Glucose (Misc Panel) 103 CBC/BMP Laboratory Tests 09/05/21 06:34 Microbiology Microbiology 09/04/21 Blood Culture, Received Pending 09/04/21 Blood Culture, Received Pending 09/03/21 Anaerobic Culture - Final, Complete 09/03/21 Wound Culture - Final, Complete Staphylococcus Sp Coag Neg 09/03/21 Gram Stain - Final, Resulted 09/03/21 Wound Culture, Resulted Pending 09/03/21 Anaerobic Culture - Final, Resulted 09/03/21 Respiratory Virus Panel (PCR) (ELIZABETH) - Final, Complete 09/01/21 Blood Culture - Preliminary, Resulted No Growth after 72 hours. All specime... 09/01/21 Blood Culture - Preliminary, Resulted No Growth after 72 hours. All specime... FABIOLA ARAIZA MD Sep 05, 2021 11:18
[2021-09-05] MEDS ORDERED: POTASSIUM CHLORIDE 10MEQ SR TABLET PO ONE (12:00)
--- NOTE | 2021-09-07 19:21 | ROOPDOC ---
[facility] Report Of Operation Report of Operation DATE OF PROCEDURE: 08/31/21 PREPROCEDURE DIAGNOSES: right breast cancer POSTPROCEDURE DIAGNOSES: same PROCEDURE PERFORMED: bilateral mastectomy with right sentinel lymph node biopsy with dual tracer, bilateral pectoralis and serratus muscle blocks SURGEON: Dr Marcus Velez ANESTHESIA: general ESTIMATED BLOOD LOSS: Approximately 200 mL. COMPLICATIONS: Left arm IV infiltration, postop tachycardia PROCEDURE NOTE: INDICATIONS: Ms. Colud is a 51 year old lady who was found to have numerous suspicious lesions on her right mammogram. Biopsy of right breast lesions was done and showed multifocal IDC HR+ Her2+. She underwent neoadjuvant chemotherapy since she has Her2 positive disease. We discussed surgical options and patient opted for bilateral simple mastectomy without reconstruction. I explained to the patient that because she has right invasive breast cancer we also need to evaluate her lymph nodes with right sentinel lymph node biopsy. Since she has neoadjuvant chemotherapy, she will need double tracer to decrease rate of false negative rate. Risks and possible complications of surgical procedure including bleeding, infection and injury to surrounding structures were explained to the patient and she wished to proceed. Consent was signed. Subcutaneous heparin 5000 units was given. Lymphoscintigraphy was reviewed preoperatively and the tracer was found in the right axilla. DETAILS: Patient was taken to the operating room and placed supine on the operating room table. Pillow was placed under her knees. Foam was placed under her heels. A sign in was called stating patients name, date of and the procedure to be done. Preoperative antibiotics were infused. Smooth induction of general anesthesia was done. Patients hands were extended on arm rests. Care was taken not to over extend patients arms. Milner catheter was placed. Sequential compression devices were placed and assured to function correctly. Patients bilateral breasts and axilla were prepped and draped in the usual fashion. Neoprobe was used to nathalie the site of maximal signal in the axilla. The right breast possible tumor extension was marked on the skin using ultrasound guidance. Biopsy clips were noted. Appropriate time out was done and patients name, date of , and the procedure to be done were confirmed. The 3 ml of blue dye was injected into right retroareolar plexus. Right breast was appropriately massaged to allow passage of the blue due to the axilla. Double silk stitch was placed at the location of previously marked Hydromarks clips in right breast to allow easier localization of cancer foci by pathology department. Next, the incision was made along the previously marked border to achieve the scar at the inframammary fold. Subcutaneous flaps were developed using electrocautery dissection. Dissection was carried toward the inframammary fold inferiorly, toward sternum medially, toward inferior aspect of clavicle superiorly and toward the axilla laterally. Breast tissue was dissected from the muscle posteriorly and pectoralis fascia was taken with the specimen. The dissection was carried all the way to the Tail of Haas making sure that axilla is not entered prematurely. Breast specimen was marked for orientation with short stitch marking superior edge of mastectomy and long stitch marking lateral edge of mastectomy. The specimen was weighted and weight of 1746 grams was reported. The specimen was then placed in formaldehyde, and passed to pathology. Mastectomy cavity was irrigated and hemostasis was achieved. Next, our attention was turned toward the right axilla which was accessed from the mastectomy site. Clavipectoral fascia was opened over the site of maximum Neoprobe signal. Area of high signal was identified in deep axilla. [place] lymph node #1 was identified and 10 second ex-vivo count was [id number]. Upon closer evaluation, it was noted that there were two adjacent nodes. There was some blue dye also noted in the nodes. Third sentinel lymph node was identified and the 10 second ex-vivo count was 3070. This node was not blue. Fourth sentinel lymph node was identified and the 10 second ex-vivo count was 711. This node was palpable. There was no blue dye seen in this node. Specimens were labeled appropriately and sent to pathology. Axilla was explored for presence of any additional lymph nodes and none were identified. 10 second count of the background was 5. The axilla was irrigated and hemostasis was achieved. Next, clavipectoral fascia was closed with interrupted 3-0 Vicryl Stitches. At this point, two 15 Pakistani Epifanio drains were placed into the mastectomy cavity and into axilla through separate stab incisions and secured at the skin with stitches. Next, pectoral and serratus plane blocks on the right side were also done with Exparel. Deep dermal sutures were placed with 2-0 Vicryl to approximate mastectomy site edges. Dermis was closed with 3-0 Vicryl. Skin was closed with Monocryl V-lock stitch. Surgical glue was applied to the top of the incision at the end of the case. Prineo skin closing system dressing was applied to the incision. At this point, patients left hand was noted to be swollen due to IV infiltration. Doppler was used to confirm adequate blood flow. Both ulnar and radial signals were identified. IV was removed by anesthesia from Left hand and placed in the foot. Left hand was wrapped with warm blanket. The swelling significantly improved at the end of the case. Next, our attention was turned toward the left breast. The incision was made along the previously marked border to achieve the scar at the inframammary fold. Subcutaneous flaps were developed using electrocautery dissection. Dissection was carried toward the inframammary fold inferiorly, toward sternum medially, toward inferior aspect of clavicle superiorly and toward the axilla laterally. Breast tissue was dissected from the muscle posteriorly and pectoralis fascia was taken with the specimen. The dissection was carried all the way to the Tail of Haas making sure that axilla is not entered. Breast specimen was marked for orientation with short stitch marking superior edge of mastectomy and long stitch marking lateral edge of mastectomy. The specimen was weighted and weight of 1565 grams was reported. The specimen was then placed in formaldehyde, and passed to pathology. Mastectomy cavity was irrigated and hemostasis was achieved. At this point, one 15 Pakistani Epifanio drain was placed into the mastectomy cavity through separate stab incisions and secured at the skin with stitch. Next, pectoral and serratus plane blocks on the left side were also done with Exparel. Deep dermal sutures were placed with 2-0 Vicryl to approximate mastectomy site edges. Dermis was closed with 3-0 Vicryl. Skin was closed with Monocryl V-lock stitch. Surgical glue was applied to the top of the incision. Prineo skin closing system dressing was applied to the incision. Surgical gauze was placed over the incision and surgical bra was placed. Final instruments and sponge count were correct. Patient emerged from general anesthesia without any problems. Milner was removed. Patient tolerated procedure well and was taken to recovery unit. She was noted to be tachycardic in recovery unit. Patient was admitted for observation. FABIENNE VELEZ DO Sep 06, 2021 21:43
--- NOTE | 2021-09-07 19:23 | ROOPDOC ---
[facility] Report Of Operation Report of Operation DATE OF PROCEDURE: 09/03/21 PREPROCEDURE DIAGNOSES: bilateral mastectomy hematoma POSTPROCEDURE DIAGNOSES: same PROCEDURE PERFORMED: evacuation of bilateral mastectomy hematoma and exploration SURGEON: Dr Marcus Molina ANESTHESIA: general ESTIMATED BLOOD LOSS: 0 cc FINDINGS: 400 cc blood clot removed from right mastectomy site, minimal clot on left PROCEDURE NOTE: INDICATIONS: Ms. Cloud is a 51 year old lady who was found to have numerous suspicious lesions on her right mammogram. Biopsy of right breast lesions was done and showed multifocal IDC HR+ Her2+. She underwent neoadjuvant chemotherapy since she has Her2 positive disease. She underwent b/l mastectomy and right SLNbx on 08/31/21. Patient developed b/l hematoma at the mastectomy sites. Decision was made to take patient back to OR as she needed transfusion of 3 units of PRBC. Risks and possible complications of surgical procedure including bleeding, infection and injury to surrounding structures were explained to the patient and she wished to proceed. Consent was signed. DETAILS: Patient was taken to the operating room and placed supine on the operating room table. Pillow was placed under her knees. Foam was placed under her heels. A sign in was called stating patients name, date of and the procedure to be done. Patient was on scheduled antibiotics hence no additional antibiotics were given. Smooth induction of general anesthesia was done. Patients hands were extended on arm rests. Care was taken not to over extend patients arms. Sequential compression devices were placed and assured to function correctly. Patients chest was prepped and draped in the usual fashion. Prineo dressing was removed. Appropriate time out was done and patients name, date of , and the procedure to be done were confirmed. Procedure was started with opening right mastectomy incision. Upon inspection of mastectomy site there was a moderate size clot noted in the medial aspect. Wound cultures were obtained from the right mastectomy site. The clot was removed and estimated to be about 400 cc. Right mastectomy site was irrigated and inspected for active bleeding. No active bleeding was noted. There were a few raw surfaces noted on the muscle which were cauterized to decrease changes of re-bleeding. New right mastectomy 15 [address] dra[address] were places, upon removal of the old drains. Those drains were placed through the previous incisions and secured at the skin with stitches. Next, the left mastectomy incision was partially opened at medial aspect. Minimal clot was noted. Wound cultures were obtained. The clot was removed. Left mastectomy site was irrigated. Since left drain was not clotted, it was left in place. No local anesthetic was used as there was concern about potential reaction to lidocaine related medications. Since no bleeding source was visible and clots were removed, bilateral mastectomy incision was closed in standard fashion using deep dermal sutures and skin closure with Monocryl V-lock stitch. Xeroform was applied to the incision sites. Surgical gauze and surgical bra were placed next. Final instruments and sponge count were correct. Patient emerged from general anesthesia without any problems. Patient tolerated procedure well and was taken to recovery unit. FABIENNE MOLINA DO Sep 06, 2021 21:43
== END 2021-09-05 13:23 | disposition home or self-care (01) | DRG 579 ==
LOC: M SDC 08:30 → M MS5PR 14:40 → M SDC 22:19 → OBSVTOIN 22:20 → M PCU 22:20 → M MSPAV 09-04 15:51
PROVIDERS: ADMIT Surgery; ATTEND Surgery
PROC: 0HTV0ZZ Resection of Bilateral Breast, Open Approach (ICD-10-PCS; 2021-08-31)
PROC: 07T50ZZ Resection of Right Axillary Lymphatic, Open Approach (ICD-10-PCS; principal; 2021-08-31 14:00)
PROC: 30233N1 Transfusion of Nonautologous Red Blood Cells into Peripheral Vein, Percutaneous Approach (ICD-10-PCS; 2021-09-02)
PROC: 0HC Skin and Breast, Extirpation (ICD-10-PCS; 2021-09-03)
DX: C50.911 Malignant neoplasm of unspecified site of right female breast (principal); R57.8 Other shock; G90.50 Complex regional pain syndrome I, unspecified; E87.2 Acidosis; L76.22 Postprocedural hemorrhage of skin and subcutaneous tissue following other procedure; I97.89 Other postprocedural complications and disorders of the circulatory system, not elsewhere classified; R00.0 Tachycardia, unspecified; I10 Essential (primary) hypertension; E78.5 Hyperlipidemia, unspecified; K21.9 Gastro-esophageal reflux disease without esophagitis; H40.9 Unspecified glaucoma; E11.9 Type 2 diabetes mellitus without complications; E66.9 Obesity, unspecified; Z98.84 Bariatric surgery status; M43.22 Fusion of spine, cervical region; Z90.49 Acquired absence of other specified parts of digestive tract; Z87.891 Personal history of nicotine dependence; N99.0 Postprocedural (acute) (chronic) kidney failure; R22.32 Localized swelling, mass and lump, left upper limb; F41.9 Anxiety disorder, unspecified; D64.9 Anemia, unspecified

== ENCOUNTER → 2021-09-09 | Outpatient (CLI) | payer OTHER, MEDICARE ==
[~2021-09-09] MED LIST changes: -CLINDAMYCIN 900 MG in IV 1 EA IV ONE; -HEPARIN SOD (PORCINE) 5000UNITS/ML 1ML VIAL/SYRINGE SQ ONE; -LIDOCAINE 1% MDV 20ML VIAL SQ PRN; -LR 1,000 ML IV ONE; +ULTR50TA8 PO
--- NOTE | 2021-09-09 16:38 | REP ---
INDICATION: SWELLING OF LOWER EXTREMITY. COMPARISON: None. TECHNIQUE: Multiple ultrasonographic images of the deep venous structures of the bilateral lower extremity were obtained from the inguinal ligament to the ankle. Venous compression techniques, color doppler imaging, and augmentation techniques were also obtained where appropriate. As per the ACR guidelines the anterior tibial vein can not be effectively evaluated. Only compression techniques in the calf on the peroneal and posterior tibial veins was attempted/performed. FINDINGS: There is no abnormal echogenic material seen within any of the visualized deep venous structures that would suggest acute thrombosis. Coaptation is unremarkable throughout. Doppler interrogation shows an expected response to respiratory variability and augmentation in the thigh. Compression techniques in the calf showed no abnormality. The color flow images show what appears to be a normal vascular pattern throughout the thigh. IMPRESSION: There is no ultrasonographic evidence of deep venous thrombosis involving any of the visualized deep venous structures of the bilateral lower extremity as described above. <Electronically signed by Sourav Pederson > 09/09/21 [id number]
== END ==
LOC: M WHC 15:43
PROVIDERS: ATTEND Surgery
DX: M79.89 Other specified soft tissue disorders (principal)

== ENCOUNTER → 2021-10-07 | Outpatient (CLI) | payer OTHER, MEDICARE ==
[2021-10-07 11:38] VITALS: BP 118/80
--- NOTE | 2021-10-07 22:53 | ROOPDOC ---
[facility] Report Of Operation Report of Operation Diagnosis:bilateral seroma at mastectomy sites Procedure:Ultrasound guided bilateral aspiration of seroma at mastectomy sites Date:10/07/2021 Proceduralist: Dr Fabienne Molina EBL: minimal Lidocaine 1% LOT [id number] Expiration 04/2025 Sodium Bicarbonate 8.4% LOT [id number] Expiration 03/2023 Informed consent was obtained. The most common risk and possible complications including bleeding, hematoma, bruising, infection, injury to surrounding structures were explained to the patient and she expressed understanding. Patient was taken to the procedure room and placed on the bed in the supine position. Our attention was first turned toward the left mastectomy site seroma. Appropriate time out was done stating patients name, date of , and the procedure to be performed. The left chest wall was prepped and draped in the usual fashion. The ultrasound was used to confirm the location of the left mastectomy site seroma. Plain Lidocaine 1% and 8.4% sodium bicarbonate 10:1 mix was used to numb the skin and the tissue along anticipated aspiration track. 18G angiocatheter was used to access large fluid collection under sonographic guidance. Needle was then removed and 54 cc of serous fluid was aspirated via angiocatheter from the left side. Since fluid was serous, there was no need to send it for evaluation as this is expected postsurgical collection. Images were captured to prove complete aspiration of seroma. Pressure was held over the aspiration site to assure hemostasis. No bleeding was noted upon removal of the pressure. Next, our attention was turned to the right seroma site. Ultrasound was a used to localize the largest pocket of fluid. Plain Lidocaine 1% and 8.4% sodium bicarbonate 10:1 mix was used to numb the skin and the tissue along anticipated aspiration track. 18G angiocatheter was used to access large fluid collection under sonographic guidance. Needle was then removed and 95 cc of serous fluid was aspirated via angiocatheter from the right side. Since fluid was serous, there was no need to send it for evaluation as this is expected postsurgical collection. Images were captured to prove complete aspiration of seroma. Pressure was held over the aspiration site to assure hemostasis. No bleeding was noted upon removal of the pressure. Patient tolerated procedure well. Band-Aids were placed over the aspiration sites. Chest was wrapped with double SUJATHA wrap. Post-procedure instructions were discussed with patient and she expressed understanding. FABIENNE MOLINA DO Oct 07, 2021 22:53
== END ==
LOC: M WHCPRO 10:13
PROVIDERS: ATTEND Surgery
DX: N64.89 Other specified disorders of breast (principal)

== ENCOUNTER → 2021-10-07 | Outpatient (CLI) | payer OTHER, MEDICARE ==
[2021-10-07 12:43] LABS: BASO # 0.1 10^3/uL (0.0-0.2); BASO % 0.9 % (0.0-1.0); EOS # 0.2 10^3/uL (0.0-0.5); EOS % 2.1 % (0.0-3.0); HEMATOCRIT 43.3 % (36.0-47.0); HEMOGLOBIN 13.9 g/dl (12.0-15.5); LYMPH # 2.6 10^3/uL (1.5-5.0); LYMPH % 27.5 % (24.0-44.0); MEAN CORPUSCULAR HEMOGLOBIN 28.4 pg (27.0-33.0); MEAN CORPUSCULAR HGB CONC 32.1 g/dl (32.0-36.5); MEAN CORPUSCULAR VOLUME 88.4 fl (80.0-96.0); MONO # 0.5 10^3/uL (0.0-0.8); MONO % 5.6 % (2.0-8.0); NEUTROPHILS # 6.1 10^3/uL (1.5-8.5); NEUTROPHILS % 63.5 % (36.0-66.0); PLATELET COUNT, AUTOMATED 300 10^3/uL (150-450); WHITE BLOOD COUNT 9.6 10^3/uL (4.0-10.0)
[2021-10-07 12:59] LABS: BLOOD UREA NITROGEN 14 MG/DL (7-18); CALCIUM LEVEL 9.4 MG/DL (8.5-10.1); CARBON DIOXIDE LEVEL 26 MEQ/L (21-32); CHLORIDE LEVEL 107 MEQ/L (98-107); CREATININE FOR GFR 0.78 MG/DL (0.55-1.30); GLOMERULAR FILTRATION RATE > 60.0 (>51); GLUCOSE, FASTING 160 MG/DL (70-100); POTASSIUM SERUM 4.4 MEQ/L (3.5-5.1); SODIUM LEVEL 141 MEQ/L (136-145)
[2021-10-07 15:40] LABS: CA15-3 ANTIGEN 5.6 U/ML (<32.4)
== END ==
LOC: M LAB 12:05
PROVIDERS: ATTEND Internal Medicine Hematology & Oncology
DX: C50.919 Malignant neoplasm of unspecified site of unspecified female breast (principal)

== ENCOUNTER → 2021-11-05 | Outpatient (REF) | payer OTHER, MEDICARE ==
[~2021-11-05] MED LIST changes: +LOSA25TA13 PO; -LOSA25TA14 PO; +TAMO20TA8 PO
== END ==
LOC: M SFHCWAGY 12:34
PROVIDERS: ATTEND Surgery
DX: N64.89 Other specified disorders of breast (principal)

== ENCOUNTER → 2022-01-03 | Outpatient (CLI) | payer OTHER, MEDICARE ==
[~2022-01-03] MED LIST changes: -D31000TA2 PO; +VITA100093 PO
== END ==
LOC: M LAB 11:18
PROVIDERS: ATTEND Student in an Organized Health Care Education/Training Program
DX: E11.9 Type 2 diabetes mellitus without complications (principal)

== ENCOUNTER → 2022-01-03 | Outpatient (CLI) | payer OTHER, MEDICARE | LOC: M CARPUL 11:07 | PROVIDERS: ATTEND Specialist | DX: C50.411 Malignant neoplasm of upper-outer quadrant of right female breast (principal) ==

== ENCOUNTER → 2022-06-03 | Outpatient (CLI) | payer OTHER, MEDICARE ==
[~2022-06-03] MED LIST changes: +ARIP1TAB PO
== END ==
LOC: M RAD 13:24
PROVIDERS: ATTEND Student in an Organized Health Care Education/Training Program
DX: Z12.2 Encounter for screening for malignant neoplasm of respiratory organs (principal); Z87.891 Personal history of nicotine dependence; K44.9 Diaphragmatic hernia without obstruction or gangrene; Z90.13 Acquired absence of bilateral breasts and nipples

== ENCOUNTER → 2022-07-15 | Outpatient (CLI) | payer OTHER, MEDICARE ==
[~2022-07-15] MED LIST changes: +CYMB1CAP5 PO; +LINZ145C PO
== END ==
LOC: M CARPUL 12:24
PROVIDERS: ATTEND Specialist
DX: I42.7 Cardiomyopathy due to drug and external agent (principal)

== ENCOUNTER → 2022-07-25 | Outpatient (CLI) | payer OTHER, MEDICARE | LOC: M LABSMTC 10:40 | PROVIDERS: ATTEND Anesthesiology | DX: Z01.818 Encounter for other preprocedural examination (principal); Z11.52 Encounter for screening for COVID-19 ==

== ENCOUNTER 2022-07-29 13:03 | Day surgery (SDC) | payer OTHER, MEDICARE ==
[~2022-07-29] VITALS: Ht 162.6 cm; Wt 100.0 kg
[~2022-07-29 13:03] MED LIST changes: +NS 1,000 ML IV ONE
[2022-07-29] MEDS ORDERED: propofoL 200 MG/20 ML VIAL As Ordered ONE ×3 (15:01→15:24)
[2022-07-29] MEDS ORDERED: LABETALOL 100MG/20ML VIAL As Ordered ONE (15:26)
[2022-07-29 15:54] VITALS: BP 116/89
== END 2022-07-29 15:55 | disposition home or self-care (01) ==
LOC: M OPP 13:03
PROVIDERS: ATTEND Internal Medicine Gastroenterology
DX: Z12.11 Encounter for screening for malignant neoplasm of colon (principal); Z86.010 Personal history of colon polyps; Q43.8 Other specified congenital malformations of intestine; K64.8 Other hemorrhoids; Z79.02 Long term (current) use of antithrombotics/antiplatelets; Z79.4 Long term (current) use of insulin; Z79.899 Other long term (current) drug therapy; Z88.1 Allergy status to other antibiotic agents; Z88.2 Allergy status to sulfonamides; Z88.4 Allergy status to anesthetic agent; Z88.8 Allergy status to other drugs, medicaments and biological substances; Z91.041 Radiographic dye allergy status; I10 Essential (primary) hypertension; E78.00 Pure hypercholesterolemia, unspecified; C50.919 Malignant neoplasm of unspecified site of unspecified female breast; E11.9 Type 2 diabetes mellitus without complications; F41.9 Anxiety disorder, unspecified; F32.9 Major depressive disorder, single episode, unspecified; F31.9 Bipolar disorder, unspecified; G43.909 Migraine, unspecified, not intractable, without status migrainosus; Z86.14 Personal history of Methicillin resistant Staphylococcus aureus infection; Z87.442 Personal history of urinary calculi; Z87.891 Personal history of nicotine dependence

== ENCOUNTER → 2022-11-16 | Outpatient (REF) | payer OTHER, MEDICARE ==
[~2022-11-16] MED LIST changes: -DOXY-350 PO; +DOXY-444 PO; +LETR2.5T2 PO; +LUMA42CA; -NS 1,000 ML IV ONE; +XANA1TAB2
== END ==
LOC: M SFHCWAGY 12:54
PROVIDERS: ATTEND Specialist
DX: Z01.419 Encounter for gynecological examination (general) (routine) without abnormal findings (principal); R87.612 Low grade squamous intraepithelial lesion on cytologic smear of cervix (LGSIL)
CPT/HCPCS: 87624; G0123

== ENCOUNTER → 2022-12-14 | Outpatient (CLI) | payer OTHER, MEDICARE ==
[~2022-12-14] MED LIST changes: +MONT-5 PO; -SING10TA32 PO
== END ==
LOC: M RAD 14:44
PROVIDERS: ATTEND Specialist
DX: N95.0 Postmenopausal bleeding (principal)

== ENCOUNTER → 2023-02-10 | Outpatient (CLI) | payer OTHER, MEDICARE | LOC: M WHC 12:47 | PROVIDERS: ATTEND Specialist | DX: C50.919 Malignant neoplasm of unspecified site of unspecified female breast (principal); M85.89 Other specified disorders of bone density and structure, multiple sites; M81.0 Age-related osteoporosis without current pathological fracture ==

== ENCOUNTER 2023-03-13 11:15 | Observation (INO) | payer OTHER, MEDICARE ==
[~2023-03-13] VITALS: Ht 162.6 cm; Wt 99.3 kg
[~2023-03-13 11:15] MED LIST changes: -LUMA42CA; +LUMA42CA PO; +MECL-86 PO; +MONT10TA97 PO; +NIRM1TAB PO; +PROP10TA56 PO; +TAMO10TA8 PO; +TIZA2TA PO; -XANA1TAB2; +XANA1TAB2 PO; +ceFAZolin SOD 2 GM in IV 1 EA IV ONE
[2023-03-13 11:58] LABS: HEMATOCRIT 43.3 % (36.0-47.0); HEMOGLOBIN 13.9 g/dl (12.0-15.5); MEAN CORPUSCULAR HEMOGLOBIN 27.6 pg (27.0-33.0); MEAN CORPUSCULAR HGB CONC 32.1 g/dl (32.0-36.5); MEAN CORPUSCULAR VOLUME 86.1 fl (80.0-96.0); PLATELET COUNT, AUTOMATED 266 10^3/uL (150-450); RED BLOOD COUNT 5.03 10^6/uL (4.00-5.40); WHITE BLOOD COUNT 5.6 10^3/uL (4.0-10.0)
[2023-03-13] MEDS ORDERED: ONDANSETRON 4MG 2ML VIAL As Ordered ONE (14:12)
[2023-03-13] MEDS ORDERED: MIDAZOLAM INJ 2MG/2ML VIAL As Ordered ONE (14:12)
[2023-03-13] MEDS ORDERED: propofoL 200 MG/20 ML VIAL As Ordered ONE ×2 (14:12→17:18)
[2023-03-13] MEDS ORDERED: LIDOCAINE 2% 100MG/5ML SDV (FOR ANES.) As Ordered ONE (14:12)
[2023-03-13] MEDS ORDERED: ROCURONIUM BROMIDE 50MG/5ML VIAL As Ordered ONE ×2 (14:12→16:13)
[2023-03-13] MEDS ORDERED: fentaNYL 100 MCG/2 ML INJECTION As Ordered ONE ×2 (14:13→16:29)
[2023-03-13] MEDS ORDERED: BUPIVACAINE HCL 0.25% 30ML VIAL As Ordered ONE (15:36)
[2023-03-13] MEDS ORDERED: ACETAMINOPHEN 1000MG 100ML IV BAG As Ordered ONE (15:58)
[2023-03-13] MEDS ORDERED: GLYCOPYRROLATE INJ 0.2 MG/ML 2 ML VIAL As Ordered ONE (16:12)
[2023-03-13] MEDS ORDERED: SUGAMMADEX SODIUM 500 MG/5 ML VIAL (BRIDION) As Ordered ONE (16:17)
[2023-03-13] MEDS ORDERED: LABETALOL 100MG/20ML VIAL As Ordered ONE (17:06)
[2023-03-13] MEDS ORDERED: fentaNYL 100 MCG/2 ML INJECTION IV PRN (17:45)
[2023-03-13] MEDS ORDERED: oxyCODONE 5MG TAB PO PRN (17:45)
[2023-03-13] MEDS ORDERED: ONDANSETRON 4MG 2ML VIAL IV PRN ×2 (17:45)
[2023-03-13] MEDS ORDERED: KETOROLAC 30 MG/ML 1ML VIAL IV PRN (17:45)
[2023-03-13] MEDS ORDERED: HYDROMORPHONE HCL 0.5 MG/ 0.5 ML SYRINGE IV PRN (17:45)
[2023-03-13] MEDS ORDERED: LR 1,000 ML IV SCH (17:45)
[2023-03-13] MEDS ORDERED: PERCOCET 5MG/325MG TAB PO PRN (17:45)
[2023-03-13] MEDS ORDERED: MORPHINE 2 MG/ML 1ML VIAL IV PRN (17:45)
[2023-03-13] MEDS ORDERED: INSULIN LISPRO (NovoLOG) PER UNIT SC PRN (18:05)
[2023-03-13 18:50] VITALS: BP 128/71; TEMP 97.3; O2SAT 88
[2023-03-13] MEDS: LR 1,000 ML IV SCH (19:00)
[2023-03-13 19:20] VITALS: BP 140/82; TEMP 97.7; O2SAT 96
[2023-03-13] MEDS: ALPRAZolam 0.5 MG TAB PO SCH (20:17)
[2023-03-13] MEDS: DOCUSATE SODIUM 100MG CAPSULE PO SCH (20:18)
[2023-03-13 20:30] VITALS: BP 119/69; TEMP 97.7; O2SAT 93
[2023-03-13] MEDS ORDERED: TOPIRAMATE (TopAMAX) 25 MG TAB PO SCH (21:00)
[2023-03-13] MEDS ORDERED: traZODone 100 MG TAB PO SCH (21:00)
[2023-03-13 21:30] VITALS: BP 113/64; TEMP 97.9; O2SAT 93
[2023-03-13 22:30] VITALS: BP 110/64; TEMP 97.5; O2SAT 93
[2023-03-13 23:30] VITALS: BP 119/73; TEMP 98.1; O2SAT 93
[2023-03-14] MEDS ORDERED: INSULIN LISPRO (NovoLOG) PER UNIT SC ONE (00:15)
[2023-03-14 00:30] VITALS: BP 100/58; TEMP 97.5; O2SAT 94
[2023-03-14] MEDS: LR 1,000 ML IV SCH ×2 (01:45→08:39)
[2023-03-14 05:00] VITALS: BP 101/54; TEMP 98.1; O2SAT 96
[2023-03-14] MEDS ORDERED: metFORMIN (GLUCOPHAGE) 1000MG TABLET PO SCH (08:00)
[2023-03-14] MEDS: DOCUSATE SODIUM 100MG CAPSULE PO SCH (08:39)
[2023-03-14] MEDS: ALPRAZolam 0.5 MG TAB PO SCH (08:39)
[2023-03-14 10:00] VITALS: BP 108/61; TEMP 98.1; O2SAT 90
[2023-03-14] MEDS ORDERED: OXYC1TAB23 PO (10:05)
[2023-03-14] MEDS ORDERED: IBUP-1022 PO (10:09)
== END 2023-03-14 12:25 | disposition home or self-care (01) ==
LOC: M SDC 11:15 → M ED INP 11:16 → M MSPAV 19:01
PROVIDERS: ADMIT Specialist; ATTEND Specialist
DX: N80.03 Adenomyosis of the uterus (principal); I10 Essential (primary) hypertension; E78.00 Pure hypercholesterolemia, unspecified; E11.9 Type 2 diabetes mellitus without complications; K58.1 Irritable bowel syndrome with constipation; K21.9 Gastro-esophageal reflux disease without esophagitis; F41.9 Anxiety disorder, unspecified; F31.9 Bipolar disorder, unspecified; G43.909 Migraine, unspecified, not intractable, without status migrainosus; G90.50 Complex regional pain syndrome I, unspecified; Z96.82 Presence of neurostimulator; H40.9 Unspecified glaucoma; Z85.3 Personal history of malignant neoplasm of breast; Z90.13 Acquired absence of bilateral breasts and nipples; Z92.21 Personal history of antineoplastic chemotherapy; Z87.891 Personal history of nicotine dependence; Z98.84 Bariatric surgery status; Z88.0 Allergy status to penicillin; Z88.8 Allergy status to other drugs, medicaments and biological substances; Z91.041 Radiographic dye allergy status; Z88.2 Allergy status to sulfonamides; Z79.899 Other long term (current) drug therapy; Z79.84 Long term (current) use of oral hypoglycemic drugs; Z79.4 Long term (current) use of insulin
CPT/HCPCS: 36415; 58571; 85027; 86850; 86900; 86901; 88307; J0131; J0690; J1100; J1815; J2250; J2405; J3010; S0020; S2900

== ENCOUNTER → 2023-07-20 | Outpatient (REF) | payer OTHER, MEDICARE ==
[~2023-07-20] MED LIST changes: +IBUP-1022 PO; +OXYC1TAB23 PO; -ceFAZolin SOD 2 GM in IV 1 EA IV ONE
[2023-07-20 18:32] LABS: BASO # 0.1 10^3/uL (0.0-0.2); BASO % 0.8 % (0.0-1.0); EOS # 0.1 10^3/uL (0.0-0.5); EOS % 0.9 % (0.0-3.0); HEMATOCRIT 40.8 % (36.0-47.0); HEMOGLOBIN 13.1 g/dl (12.0-15.5); MEAN CORPUSCULAR HEMOGLOBIN 28.5 pg (27.0-33.0); MEAN CORPUSCULAR HGB CONC 32.1 g/dl (32.0-36.5); MEAN CORPUSCULAR VOLUME 88.7 fl (80.0-96.0); MONO # 0.5 10^3/uL (0.0-0.8); MONO % 6.9 % (2.0-8.0); NEUTROPHILS # 4.9 10^3/uL (1.5-8.5); NEUTROPHILS % 64.1 % (36.0-66.0); PLATELET COUNT, AUTOMATED 299 10^3/uL (150-450); WHITE BLOOD COUNT 7.6 10^3/uL (4.0-10.0)
[2023-07-20 18:35] LABS: CREATININE, URINE 56.2 MG/DL; MAU/CREAT RATIO 12.4 MCG/MG (0.0-30.0)
[2023-07-20 18:40] LABS: TOTAL IRON BINDING CAPACITY 354 UG/DL (250-425)
[2023-07-20 18:41] LABS: IRON (FE) 121 UG/DL (50-170); PERCENT SATURATION 34.2 % (13.2-45.0)
[2023-07-20 19:13] LABS: ALBUMIN 3.7 G/DL (3.2-5.2); ALKALINE PHOSPHATASE 115 U/L (46-116); ALT/SGPT 17 U/L (7.0-40); AST/SGOT 12 U/L (<34); BILIRUBIN,TOTAL 0.3 MG/DL (0.3-1.2); BLOOD UREA NITROGEN 14 MG/DL (9-23); CALCIUM LEVEL 8.9 MG/DL (8.5-10.1); CARBON DIOXIDE LEVEL 27 MMOL/L (20-31); CHLORIDE LEVEL 105 MMOL/L (98-107); CHOLESTEROL LEVEL 134 MG/DL (<200); CHOLESTEROL RISK RATIO 3.33 (<5); CREATININE FOR GFR 0.73 MG/DL (0.55-1.30); FERRITIN 13.4 NG/ML (7.3-270.7); FOLATE > 24.00 NG/ML (>5.4); FREE T4 1.05 NG/DL (0.89-1.76); GLOMERULAR FILTRATION RATE > 60.0 (>51); GLUCOSE, FASTING 195 MG/DL (60-100); HDL CHOLESTEROL 40.2 MG/DL (>40); NON-HDL-C 93.8 MG/DL; POTASSIUM SERUM 4.4 MMOL/L (3.5-5.1); SODIUM LEVEL 140 MMOL/L (136-145); THYROID STIMULATING HORMONE 1.819 uIU/ML (0.55-4.78); TOTAL 25(OH) VITAMIN D 42.3 NG/ML (20.0-100.0); TOTAL PROTEIN 6.4 G/DL (5.7-8.2); TRIGLYCERIDES LEVEL 179 MG/DL (<150); VITAMIN B12 LEVEL 653 PG/ML (211-911)
== END ==
LOC: M SFHCCLAY 09:54
PROVIDERS: ATTEND Nurse Practitioner Family
DX: Z98.84 Bariatric surgery status (principal); E78.2 Mixed hyperlipidemia; I10 Essential (primary) hypertension; E11.9 Type 2 diabetes mellitus without complications

== ENCOUNTER → 2024-07-22 | Outpatient (CLI) | payer OTHER, MEDICARE ==
[~2024-07-22] MED LIST changes: +DOXY-440 PO; -DOXY-444 PO; -KLON0.5T PO; +KLON0.5T8 PO; +LIDOCAINE 1% MDV 20ML VIAL As Ordered ONE; +MIDAZOLAM INJ 2MG/2ML VIAL As Ordered ONE; +SEMA0.257 SQ; +VANCOMYCIN/WATER FOR INJ 1,000 MG in IV 1 EA IV ONE; +ceFAZolin 2 GM/D5W 50 ML IV BAG As Ordered ONE; +fentaNYL 100 MCG/2 ML INJECTION As Ordered ONE
[2024-07-22 12:00] VITALS: TEMP 97.5
[2024-07-22] MEDS: NS 1,000 ML IV SCH (12:15)
[2024-07-22] MEDS: ceFAZolin SOD 2 GM in IV 1 EA IV ONE (12:24)
[2024-07-22 13:01] VITALS: BP 111/75; O2SAT 96
== END ==
LOC: M IRPRO 11:53
PROVIDERS: ATTEND Specialist
DX: C50.919 Malignant neoplasm of unspecified site of unspecified female breast (principal)
CPT/HCPCS: 36590; 99152; J0690; J2250; J3010

== ENCOUNTER → 2025-07-09 | Outpatient (CLI) | payer MEDICARE ==
[~2025-07-09] MED LIST changes: +BREAST PROSTHESIS B XX; -BYDU2INJ7 SC; +EXEN2AUT SC; -IBUP-1022 PO; +IBUP600T42 PO; -LIDOCAINE 1% MDV 20ML VIAL As Ordered ONE; -LUMA42CA PO; +LUMA42CA4 PO; -MIDAZOLAM INJ 2MG/2ML VIAL As Ordered ONE; -VANCOMYCIN/WATER FOR INJ 1,000 MG in IV 1 EA IV ONE; -ceFAZolin 2 GM/D5W 50 ML IV BAG As Ordered ONE; -fentaNYL 100 MCG/2 ML INJECTION As Ordered ONE
[2025-07-09 15:22] LABS: PLATELET COUNT, AUTOMATED 309 10^3/uL (150-450)
[2025-07-09 15:54] LABS: FREE T4 1.10 NG/DL (0.89-1.76)
[2025-07-09 15:57] LABS: VITAMIN B12 LEVEL 1072 PG/ML (211-911)
== END ==
LOC: M LAB 14:23
PROVIDERS: ATTEND Physician Assistant Medical
DX: K14.6 Glossodynia (principal); E78.00 Pure hypercholesterolemia, unspecified